=== PATIENT | male | born 1975 | race Caucasian/White ===

== ENCOUNTER 2023-05-12 13:21 | Emergency (ER) | payer BC, SELFPAY ==
[2023-05-12 13:25] VITALS: BP 165/109; PULSE 102; RESP 18; TEMP 36.9; O2SAT 94; BMI 32.6
--- NOTE | 2023-05-12 13:32 | CT_ITS ---
The [address] [address] Patient Name: JIM PETERSON MRN: [id number] date: 1975 Sex: M Assigned Patient Location: ER Current Patient Location: Accession/Order Number: [id number] Exam Date: 05/12/2023 13:47 Report Date: 05/12/2023 14:52 At the request of: JEFF MIDDLETON Procedure: CT abdomen pelvis wo con EXAM: CT abdomen pelvis wo con; [id number] REASON FOR EXAM: flank pain TECHNIQUE: Helical CT images of the abdomen and pelvis were obtained without IV contrast. Multiplanar reformats were generated at the scanner. Dose reduction technique used: Automated exposure control and/or adjustment of the mA and/or kV according to patient size and/or use of iterative reconstruction technique. COMPARISON: CT abdomen/pelvis 08/07/2022 and 03/12/2020. FINDINGS: Note: Compared with a contrast-enhanced CT exam, noncontrast images are relatively insensitive for detection of solid organ and vascular abnormalities. Visualized Chest: No pleural effusion or any significant pulmonary findings. Abdomen: Liver: Numerous cysts. Gallbladder: No calcified gallstones. No acute inflammatory changes. Bile Ducts: No significant biliary ductal dilatation. Pancreas: No ductal dilatation or inflammatory changes. Spleen: No splenomegaly. Adrenals: No nodules. Kidneys: -Polycystic kidneys. -Since 08/07/2022 there is been interval hemorrhage into a small cyst in the lateral aspect of the right kidney (series 3 image 48) as well as interval hemorrhage into to medium-sized left-sided cysts (series 3 image 87 and 35). There is also been increased attenuation of a medium-sized cyst in the lower pole of the left kidney suggesting interval acute on chronic hemorrhage. -Pre-existing hemorrhage within several additional renal cyst. -No hydronephrosis. -Scattered bilateral renal calcifications are present. Vascular: No aortic aneurysm. Lymph Nodes: No adenopathy. Abdominal Wall: Probable laparoscopy port of the right lower abdomen. Pelvis: No mass or adenopathy. Bowel/Peritoneal Cavity/Mesentery: -No bowel obstruction or significant ileus. -No acute inflammatory changes. -No free air or free fluid. Musculoskeletal: No acute fracture or suspicious osseous lesion. CT/CT abdomen pelvis wo con IMPRESSION: 1. Compared with 08/07/2022 there has been interval hemorrhage into one of the right-sided renal cysts and 3 of the left-sided renal cysts which can result and flank pain. 2. No hydronephrosis or other potentially acute intra-abdominal abnormality. Electronically authenticated by: PHILIP HUGHES Date: 05/12/2023 14:52
--- NOTE | 2023-05-12 13:39 | US_ITS ---
The [address] [address] Patient Name: JIM PETERSON MRN: [id number] date: 1975 Sex: M Assigned Patient Location: ER Current Patient Location: Accession/Order Number: [id number] Exam Date: 05/12/2023 14:35 Report Date: 05/12/2023 15:14 At the request of: JEFF MIDDLETON Procedure: US scrotum doppler EXAM: US scrotum doppler TECHNIQUE: Grayscale, color flow and Doppler ultrasound evaluation of the scrotum. HISTORY: possible torsion COMPARISON: None. FINDINGS: Right testicle measures 3.3 x 3.4 x 2.0 cm and is homogeneous with normal blood flow. Left testicle measures 3.4 x 2.6 x 1.9 cm and is homogeneous with normal blood flow. Multiple right epididymal head cysts measuring up to 17 mm. There are multiple left epididymal head cysts measuring up to 6 mm. No significant hydrocele or extratesticular mass lesion. US/US scrotum doppler IMPRESSION: No acute scrotal pathology. Electronically authenticated by: MARGARITA SONG Date: 05/12/2023 15:14
[2023-05-12 13:48] LABS: Bilirubin Urine NEGATIVE (NEGATIVE); Blood Urine MODERATE (NEGATIVE); Clarity Urine CLEAR (CLEAR); Color Urine LT. YELLOW (YELLOW); Glucose Urine UA NEGATIVE (NEGATIVE); Ketones Urine NEGATIVE (NEGATIVE); Leukocyte Esterase Urine NEGATIVE (NEGATIVE); Nitrite Urine NEGATIVE (NEGATIVE); Protein Urine 100 mg/dL (NEG/TRACE); Specific Gravity Urine 1.015 (1.005-1.025); Urobilinogen Urine 0.2 EU/dL (0.2-1.0); pH Urine 8.5 (5.0-9.0)
[2023-05-12 13:51] LABS: Urine Microscopic Indicated YES
[2023-05-12 13:55] LABS: Basophils Percent Auto 0.3 % (0.2-2.0); Eosinophils Percent Auto 0.5 % (0.9-7.0); Hematocrit 46.8 % (42.0-54.0); Hemoglobin 15.7 g/dL (14.0-18.0); Immature Granulocytes Abs Auto 0.02 10^3/uL (0.00-0.03); Immature Granulocytes Pct Auto 0.3 % (0.0-0.5); Lymphocytes Absolute Auto 0.5 10^3/uL (1.2-3.8); Lymphocytes Percent Auto 6.5 % (20.5-60.0); Mean Corpuscular HGB Conc 33.5 g/dL (29.9-35.2); Mean Corpuscular Hemoglobin 30.4 pg (25.9-34.0); Mean Corpuscular Volume 90.5 fL (80.0-94.0); Mean Platelet Volume 9.4 fL (9.5-13.5); Monocytes Absolute Auto 0.5 10^3/uL (0.3-0.8); Monocytes Percent Auto 5.8 % (1.7-12.0); Neutrophils Absolute Auto 6.9 10^3/uL (1.4-6.5); Neutrophils Percent Auto 86.6 % (43.0-75.0); Platelet Count 202 10^3/uL (150-450); Red Blood Count 5.17 10^6/uL (4.70-6.10)
[2023-05-12 13:56] LABS: Bacteria Urine TRACE #/HPF (NONE SEEN); Cast Seen? NONE SEEN #/LPF (NONE SEEN); Crystals Seen? None Seen #/HPF (None Seen); Mucus Urine NONE SEEN (NONE SEEN); Squamous Epithelial Cell Urine RARE #/LPF (NONE/RARE); Urine Culture Indicated NO; WBC Urine NONE SEEN #/HPF (NONE SEEN)
[2023-05-12 14:06] LABS: Alanine Aminotransferase 15 U/L (16-63); Albumin Globulin Ratio 0.7; Albumin Level 3.2 g/dL (3.4-5.0); Alkaline Phosphatase 76 U/L (46-116); Anion Gap 13.6; Aspartate Amino Transferase 12 U/L (15-37); BUN Creatinine Ratio 5.3; Bilirubin Total 0.8 mg/dL (0.2-1.0); Calcium 9.2 mg/dL (8.5-10.1); Carbon Dioxide 29.5 mmol/L (21.0-32.0); Chloride 99 mmol/L (98-107); Estimated GFR (African America 20 (>=60); Estimated GFR (Non-African Ame 16 (>=60); Globulin 4.3 g/dL; Glucose 110 mg/dL (74-106); Potassium 3.1 mmol/L (3.5-5.1); Sodium 139 mmol/L (136-145); Total Protein 7.5 g/dL (6.4-8.2)
[2023-05-12] MEDS: HYDROMORPHONE HCL 0.5 MG/0.5 ML SYRINGE IV (14:28)
[2023-05-12 14:33] VITALS: PULSE 69; O2SAT 97
--- NOTE | 2023-05-12 15:40 | ED.ABDPAIN1 ---
HPI - Abdominal Pain General Chief Complaint: Abdominal Pain Stated Complaint: flank pain UTI Time Seen by Provider: 05/12/23 13:31 Mode of arrival: walk-in Limitations: no limitations History of Present Illness HPI narrative: The patient have history of polycystic kidney disease and on dialysis awaiting kidney transplant. Coming to us with a pain in his right back mostly the flank area radiating down to his groin and testicles on the right side. That started last night all of a sudden with no history of fall or trauma or carrying anything heavy. There was no nausea no vomiting and no burning with urination and no fever and the patient gave the pain 6 out of 10 Related Data Previous Rx's Medication Instructions Recorded oxycodone-acetaminophen 5 mg-325 1 tab PO Q8H PRN pain #9 tabs 05/12/23 mg tablet (Percocet) Allergies Allergy/AdvReac Type Severity Reaction Status Date / Time amoxicillin Allergy Mild Verified 05/12/23 13:25 Review of Systems ROS Status of ROS 10 or more systems reviewed and unremarkable except as noted in history and below Exam Narrative Exam Narrative: Nurses notes and vital signs reviewed and patient is not hypoxic. General: Well-appearing and in no apparent distress. Skin: Warm, dry, no pallor noted. No rash. Head: Normocephalic, atraumatic. Neck: Supple, non-tender. Eye: Pupils are equal, round and EOMI. No scleral icterus. Ears, Nose, Mouth, and Throat: TM are clear, no nasal mucosal hypertrophy. Oral mucosa is moist, no posterior oropharynx erythema, uvula is mid-line Cardiovascular: Regular Rate and Rhythm without murmur, gallop or rub. Respiratory: No accessory muscle use or respiratory distress. Lungs are clear to auscultation, no wheezing, rales or rhonchi Chest Wall: no tenderness Back: No midline thoracic or lumbar vertebral tenderness. No CVA tenderness Musculoskeletal: normal ROM, no calf or popliteal tenderness, no lower extremity edema/swelling GI: Abdomen is soft, non-distended. Normal bowel sounds. No masses appreciated. No tenderness to palpation. No rebound, guarding, or rigidity noted. Neurological: A&O x4. No cranial nerve dysfunction observed. No truncal ataxia. Moves all extremities. Sensation intact. Psychiatric: Cooperative and interactive. Normal mood and affect. On examination of the back I could not induce tenderness on palpation or any CVA tenderness and on examination of the patient's scrotum there was no redness hotness or any rash and the patient had no significant swelling of the testicles no elevation of the right testicle compared to the left and he did complain of very subjective pain on examination on the right side. Constitutional Vital Signs, click to edit/add: Last Vital Signs Temp 98.5 F 05/12/23 13:25 Pulse 69 05/12/23 14:33 Resp 18 05/12/23 13:25 BP 150/98 H 05/12/23 16:02 Pulse Ox 97 05/12/23 14:33 Course Vital Signs Vital signs: Vital Signs Temperature 98.5 F 05/12/23 13:25 Pulse Rate 102 H 05/12/23 13:25 Respiratory Rate 18 05/12/23 13:25 Blood Pressure 165/109 H 05/12/23 13:25 Pulse Oximetry 94 L 05/12/23 13:25 Temperature 98.5 F 05/12/23 13:25 Pulse Rate 69 05/12/23 14:33 Respiratory Rate 18 05/12/23 13:25 Blood Pressure 150/98 H 05/12/23 16:02 Pulse Oximetry 97 05/12/23 14:33 MDM - Abdominal Pain MDM Narrative Medical decision making narrative: Patient CBC and chemistry showed no acute significant pathology except for this chronic kidney disease Patient was feeling better after being treated with Dilaudid The patient had ultrasound showing no pathology detected in the testicle within normal blood supply CAT scan shows hemorrhagic multiple cyst in the right side as well as the left and that can explain the patient pain/ Patient provided with a Percocet prescription he was instructed to follow-up with his doctor within few days and in case of any worsening or no improvement within 24 to 48 hours he is to come back to the ER The patient is to follow up with primary care physician in next 2-3 days or to return to the emergency department should any of the signs or symptoms worsen or new symptoms develop. The patient agrees with the following Diagnosis and Treatment plan and the patient will be discharged home. Lab Data Labs: Lab Results 05/12/23 05/12/23 Range/Units 13:40 13:45 WBC 8.0 (4.0-11.0) 10^3/uL RBC 5.17 (4.70-6.10) 10^6/uL Hgb 15.7 (14.0-18.0) g/dL Hct 46.8 (42.0-54.0) % MCV 90.5 (80.0-94.0) fL MCH 30.4 (25.9-34.0) pg MCHC 33.5 (29.9-35.2) g/dL RDW 14.0 (11.0-15.0) % Plt Count 202 (150-450) 10^3/uL MPV 9.4 L (9.5-13.5) fL Neut % (Auto) 86.6 H (43.0-75.0) % Lymph % (Auto) 6.5 L (20.5-60.0) % [place] % (Auto) 5.8 (1.7-12.0) % Eos % (Auto) 0.5 L (0.9-7.0) % Baso % (Auto) 0.3 (0.2-2.0) % Neut # (Auto) 6.9 H (1.4-6.5) 10^3/uL Lymph # (Auto) 0.5 L (1.2-3.8) 10^3/uL [place] # (Auto) 0.5 (0.3-0.8) 10^3/uL Eos # (Auto) 0.0 (0.0-0.7) 10^3/uL Baso # (Auto) 0.0 (0.0-0.1) 10^3/uL Abs Immat Gran (auto) 0.02 (0.00-0.03) 10^3/uL Imm/Tot Granulo (auto) 0.3 (0.0-0.5) % Sodium 139 (136-145) mmol/L Potassium 3.1 L (3.5-5.1) mmol/L Chloride 99 (98-107) mmol/L Carbon Dioxide 29.5 (21.0-32.0) mmol/L Anion Gap 13.6 BUN 21.0 H (7.0-18.0) mg/dL Creatinine 3.97 H (0.70-1.30) mg/dL Est GFR ( Amer) 20 L (>=60) Est GFR (Non-Af Amer) 16 L (>=60) BUN/Creatinine Ratio 5.3 Glucose 110 H (74-106) mg/dL Calcium 9.2 (8.5-10.1) mg/dL Total Bilirubin 0.8 (0.2-1.0) mg/dL AST 12 L (15-37) U/L ALT 15 L (16-63) U/L Alkaline Phosphatase 76 (46-116) U/L Total Protein 7.5 (6.4-8.2) g/dL Albumin 3.2 L (3.4-5.0) g/dL Globulin 4.3 g/dL Albumin/Globulin Ratio 0.7 Urine Color Lt. yellow (YELLOW) Urine Clarity Clear (CLEAR) Urine pH 8.5 (5.0-9.0) Ur Specific [place] 1.015 (1.005-1.025) Urine Protein 100 A (NEG/TRACE) mg/dL Urine Glucose (UA) Negative (NEGATIVE) mg/dL Urine Ketones Negative (NEGATIVE) mg/dL Urine Occult Blood Moderate A (NEGATIVE) Urine Nitrite Negative (NEGATIVE) Urine Bilirubin Negative (NEGATIVE) Urine Urobilinogen 0.2 (0.2-1.0) EU/dL Ur Leukocyte Esterase Negative (NEGATIVE) Urine RBC 5-10 A (0-2) #/HPF Urine WBC None seen (NONE SEEN) #/HPF Ur Squamous Epith Cells Rare (NONE/RARE) #/LPF Urine Crystals None seen (None Seen) #/HPF Urine Bacteria Trace A (NONE SEEN) #/HPF Urine Casts None seen (NONE SEEN) #/LPF Urine Mucus None seen (NONE SEEN) Ur Culture Indicated? No Discharge Plan Discharge Chief Complaint: Abdominal Pain Clinical Impression: Flank pain, Hemorrhage of cyst of [place] kidney Patient Disposition: Home, Self-Care Time of Disposition Decision: 15:39 Condition: Good Mode of Transportation: Private Vehicle Prescriptions / Home Meds: New oxycodone-acetaminophen [Percocet] 5-325 mg tablet 1 tab PO Q8H PRN (Reason: pain ) Qty: 9 0RF Instructions: Kidney Cyst (ED) Stand Alone Forms: Portal Instructions Referrals: JANN JAUREGUI [Primary Care Provider] - 1 week Discharge Date/Time: 05/12/23 16:03
[2023-05-12 16:02] VITALS: BP 150/98
== END 2023-05-12 16:03 | disposition home or self-care (01) ==
PROVIDERS: Emergency Provider Emergency Medicine; PCP Internal Medicine
DX: R10.9 Unspecified abdominal pain (principal); Q61.3 Polycystic kidney, unspecified; Z99.2 Dependence on renal dialysis; Z76.82 Awaiting organ transplant status
CPT/HCPCS: 36415; 74176; 76870; 80053; 81001; 85025; 93976; 96374; 99285; J1170

== ENCOUNTER 2023-10-24 17:25 | Emergency (ER) | payer BC, SELFPAY ==
[2023-10-24 17:30] VITALS: BP 160/107; PULSE 102; TEMP 36.7; O2SAT 95; BMI 31.9
--- NOTE | 2023-10-24 17:36 | XR_ITS ---
The [address] [address] Patient Name: JIM PETERSON MRN: [id number] date: 1975 Sex: M Assigned Patient Location: ED.MAIN Current Patient Location: ER Accession/Order Number: [id number] Exam Date: 10/24/2023 17:45 Report Date: 10/24/2023 18:12 At the request of: JARROD ARREAGA Procedure: XR chest 1V Exam: Radiographs: XR chest 1V Reason for exam: congestion Comparison: Plain films dated 05/08/2016 XR/XR chest 1V IMPRESSION: Unremarkable chest x-ray. Electronically authenticated by: MATIAS BOGGS Date: 10/24/2023 18:12
[2023-10-24 17:37] VITALS: BP 152/102
--- NOTE | 2023-10-24 17:38 | ED_ITS ---
HPI HPI - General Adult General Chief complaint: Upper Respiratory Infection Stated complaint: Sore Throat, Congestion Time Seen by Provider: 10/24/23 17:30 Source: patient Mode of arrival: walk-in History of Present Illness HPI narrative: 48-year-old presents for hoarse voice for a week and congestion and discharge for a day or 2. He is a dialysis patient and had his normal dialysis yesterday. No fever or productive cough. No back pain or vomiting or shortness of breath. He wanted to be sure there is nothing serious because he is a dialysis patient. Related Data Home Medications ?Medication ?Instructions ?Recorded ?Confirmed allopurinol 100 mg tablet 100 mg PO .3Times a week 10/24/23 10/24/23 fluticasone propionate 50 1 spray intranasal DAILY 10/24/23 10/24/23 mcg/actuation nasal spray,suspension sertraline 100 mg tablet 100 mg PO DAILY 10/24/23 10/24/23 Previous Rx's ?Medication ?Instructions ?Recorded oxycodone-acetaminophen 5 mg-325 1 tab PO Q8H PRN pain #9 tabs 05/12/23 mg tablet (Percocet) Allergies Allergy/AdvReac Type Severity Reaction Status Date / Time amoxicillin Allergy Mild Verified 05/12/23 13:25 Opioid HPI Opioid Management Most Recent Opioid Data: Last Pain Scale 8 05/12/23 14:28 Review of Systems ROS Narrative A ten point review of systems is negative except as noted above. Exam Narrative Exam Narrative: Nurses note and vital signs reviewed and patient is not hypoxic. General: The patient appears well and in no apparent distress. Patient is resting comfortably on cart. Skin: Warm, dry, no pallor noted. There is no rash noted. Head: Normocephalic, atraumatic Eye: Normal conjunctiva, no drainage Ears, Nose, Mouth, and Throat: oral mucosa is moist. Nares patent. Posterior pharynx shows no erythema or exudate. No swelling. Cardiovascular: Regular Rate and Rhythm Respiratory: Patient is in no distress, no accessory muscle use, lungs are clear to auscultation, no wheezing, rales or rhonchi Back: non-tender GI: Soft and nontender Musculoskeletal: The patient has no evidence of calf tenderness, no pitting edema, symmetrical pulses noted bilaterally Neurological: A&O, normal speech Psychiatric: Cooperative Constitutional Vital Signs, click to edit/add: Last Vital Signs Temp 98.1 F 10/24/23 17:30 Pulse 102 H 10/24/23 17:30 Resp 16 10/24/23 17:30 BP 152/102 H 10/24/23 17:37 Pulse Ox 95 10/24/23 17:30 O2 Del Method Room Air 10/24/23 17:30 Course Vital Signs Vital signs: Vital Signs Temperature 98.1 F 10/24/23 17:30 Pulse Rate 102 H 10/24/23 17:30 Respiratory Rate 16 10/24/23 17:30 Blood Pressure 160/107 H 10/24/23 17:30 Pulse Oximetry 95 10/24/23 17:30 Oxygen Delivery Method Room Air 10/24/23 17:30 Temperature 98.1 F 10/24/23 17:30 Pulse Rate 102 H 10/24/23 17:30 Respiratory Rate 16 10/24/23 17:30 Blood Pressure 152/102 H 10/24/23 17:37 Pulse Oximetry 95 10/24/23 17:30 Oxygen Delivery Method Room Air 10/24/23 17:30 Medical Decision Making MDM Narrative Medical decision making narrative: Strep test and chest x-ray are negative. My clinical impression is that he has a viral upper respiratory infection. Antibiotic not indicated. Treatment diagnosis and follow-up were discussed with the patient. Differential Diagnosis Differential Diagnosis: Strep throat, viral laryngitis, pneumonia, viral URI Lab Data Lab results reviewed: Yes I reviewed the patient's lab results Labs: Lab Results 10/24/23 Range/Units 17:35 Streptococcus Screen Negative Imaging Data Chest x-ray: Radiologist's impression: ITS Impressions Chest X-Ray 10/24/23 17:36 IMPRESSION: Unremarkable chest x-ray. Electronically authenticated by: MATIAS BOGGS Date: 10/24/2023 18:12 Discharge Plan Discharge Stand Alone Forms: Portal Instructions Chief Complaint: Upper Respiratory Infection Clinical Impression: Viral upper respiratory infection, Laryngitis Patient Disposition: Home, Self-Care Time of Disposition Decision: 18:26 Condition: Good Mode of Transportation: Private Vehicle Prescriptions / Home Meds: No Action oxycodone-acetaminophen [Percocet] 5-325 mg tablet 1 tab PO Q8H PRN (Reason: pain ) Qty: 9 0RF allopurinol 100 mg tablet 100 mg PO .3Times a week fluticasone propionate 50 mcg/actuation spray,suspension 1 spray INTRANASAL DAILY sertraline 100 mg tablet 100 mg PO DAILY Print Language: Croatian Instructions: Laryngitis (ED), Upper Respiratory Infection (ED) Referrals: JANN JAUREGUI [Primary Care Provider] - 1 week
[2023-10-24 17:56] LABS: Internal Control Within Normal Limits; Strep A Antigen Screen Negative
== END 2023-10-24 18:30 | disposition home or self-care (01) ==
PROVIDERS: Emergency Provider Emergency Medicine; PCP Internal Medicine
DX: J06.9 Acute upper respiratory infection, unspecified (principal); J04.0 Acute laryngitis; Z99.2 Dependence on renal dialysis
CPT/HCPCS: 71045; 87070; 87880; 99284

== ENCOUNTER 2024-06-18 15:25 | Outpatient (OUT) | payer BC, SELFPAY ==
[2024-06-18 15:50] LABS: Hematocrit 40.1 % (42.0-54.0); Hemoglobin 13.2 g/dL (14.0-18.0); Mean Corpuscular HGB Conc 32.9 g/dL (29.9-35.2); Mean Corpuscular Hemoglobin 30.1 pg (25.9-34.0); Mean Corpuscular Volume 91.6 fL (80.0-94.0); Mean Platelet Volume 9.4 fL (9.5-13.5); Platelet Count 287 10^3/uL (150-450); Red Blood Count 4.38 10^6/uL (4.70-6.10); Red Cell Distribution Width 18.3 % (11.0-15.0); White Blood Count 7.6 10^3/uL (4.0-11.0)
[2024-06-18 16:14] LABS: Alanine Aminotransferase 16 U/L (16-63); Albumin Level 3.8 g/dL (3.4-5.0); Alkaline Phosphatase 248 U/L (46-116); Aspartate Amino Transferase 13 U/L (15-37); Bilirubin Total 0.3 mg/dL (0.2-1.0); Estimated GFR (African America 37 (>=60 mL/min/1.73m^2); Estimated GFR (Non-African Ame 30 (>=60 mL/min/1.73m^2); Uric Acid 3.9 mg/dL (3.5-7.2)
[2024-06-18 16:39] LABS: Band Neutrophils Absolute 0.2 10^3/uL (0.0-0.3); Monocytes Absolute Manual 0.45 10^3/uL (0.30-0.80); Segmented Neut Absolute Manual 6.99 10^3/uL (1.4-6.5)
== END 2024-06-18 15:26 | disposition home or self-care (01) ==
LOC: LAB 15:27
PROVIDERS: PCP Internal Medicine; Visit Provider Internal Medicine Rheumatology
DX: M10.09 Idiopathic gout, multiple sites (principal)
CPT/HCPCS: 36415; 82042; 82247; 82565; 84075; 84450; 84460; 84550; 85007; 85027

== ENCOUNTER 2024-08-13 12:58 | Outpatient (OUT) | payer BC, SELFPAY ==
[2024-08-13 15:54] LABS: C. Difficile PCR NEGATIVE
== END 2024-08-13 12:59 | disposition home or self-care (01) ==
LOC: LAB 13:00
PROVIDERS: PCP Internal Medicine; Visit Provider Internal Medicine Nephrology
DX: R19.7 Diarrhea, unspecified (principal)
CPT/HCPCS: 87493

== ENCOUNTER 2025-02-04 17:45 | Emergency (ER) | payer BC, MEDICARE, SELFPAY ==
--- OUTSIDE RECORDS SUMMARY | 2025-01-23 07:55 | XMS_ITS | Encounter Summary ---
Author Organization 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 Name Role Phone Joe Harris MD Primary Care Provider [phone] Milind Jaime MD Unavailable Trever Morales MD Unavailable Encounter Details DateTypeDepartmentCare Team (Latest Contact Info)Ncrqhoesfmz52/24/2025 8:55 AM EDTLab [facility] Outpatient Draw Station [address] [place] [address] Encounter for long-term (current) use of medications; Kidney transplanted; Cytomegalovirus (CMV) viremia (CMS/HCC); Immunosuppression Social History Tobacco UseTypesPacks/DayYears UsedDateSmoking Tobacco: NeverSmokeless Tobacco: FormerSnuffQuit: 01/29/2023lcohol UseStandard Drinks/WeekCommentsNot Currently0 (1 standard drink = 0.6 oz pure alcohol)[facility] UtilitiesAnswerDate RecordedIn the past 12 months has the [employer], gas, oil, or water [employer] threatened to shut off services in your home?No10/06/2024Humiliation, Afraid, Rape, and Kick questionnaireAnswerDate RecordedWithin the last year, have you been afraid of your partner or ex-partner?No10/06/2024Within the last year, have you been humiliated or emotionally abused in other ways by your partner or ex-partner?No 10/06/2024Within the last year, have you been kicked, hit, slapped, or otherwise physically hurt by your partner or ex-partner?No10/06/2024Within the last year, have you been raped or forced to have any kind of sexual activity by your part ner or ex-partner?No10/06/2024Overall Financial Resource Strain (CARDIA)Answer Date RecordedHow hard is it for you to pay for the very basics like food, housing, medical care, and heating?Not hard at all10/06/2024PHQ-2AnswerDate RecordedPatient Health Questionnaire-2 [id number] Safety & Environment AnswerDate RecordedWithin the last year, have you been afraid of your partner or ex-partner?No04/03/2023Emotionally AbusedNot on file04/03/2023hysically Abused Not on file04/03/2023Sexually AbusedNot on file04/03/2023In the past year have you been physically or sexually abused?Unrecognized value04/03/2023 TransportationAnswerDate RecordedIn the past 12 months, has lack of transportation kept you from medical appointments or from getting medications?No 10/06/2024In the past 12 months, has lack of transportation kept you from meetings, work, or from getting things needed for daily living?No10/06/2024 Housing Stability Vital SignAnswerDate RecordedIn the last 12 months, was there a time when you were not able to pay the mortgage or rent on time?No10/06/2024In the past 12 months, how many times have you moved where you were living?1 10/06/2024t any time in the past 12 months, were you homeless or living in a snf (including now)?No10/06/2024Hunger Vital SignAnswerDate RecordedWithin the past 12 months, you worried that your food would run out before you got the money to buymore.Never true10/06/2024Within the past 12 months, the food you bought just didn't last and you didn't have money to get more.Never true 10/06/2024Sex and Gender InformationValueDate RecordedSex Assigned at [facility] 02/26/2023 9:51 AM ESTLegal KbpDfih92/03/2022 3:32 PM EDTGender IdentityMale 02/26/2023 9:51 AM ESTSexual OrientationHeterosexual or Wyonddxp52/27/2023 9:51 AM ESTdocumented as of this encounter Functional Status * Are you deaf or do you have serious difficulty hearing?AnswerDate of CmuawckcbwNvtdnuXz96/25/2023 1:42 PM Elicia Pacheco RN * Are you blind or do you have serious difficulty seeing, even when wearing glasses?AnswerDate of PbijugokdpAapkoqAj83/25/2023 1:42 PM Elicia Pacheco RN * Do you have serious difficulty walking or climbing stairs?AnswerDate of QvpteqeswgWrqhwrZp13/25/2023 1:42 PM Elicia Pacheco RN * Do you have serious difficulty dressing or bathing?AnswerDate of Assessment WohoadAf07/25/2023 1:42 PM Elicia Pacheco RN * Because of a physical, mental, or emotional condition, do you have serious difficulty doing errandsalone such as visiting the doctor?AnswerDate of XlbwdlnempAakxwdIx42/25/2023 1:42 PM Elicia Pacheco RN documented as of this encounter Mental Status * Because of a physical, mental, or emotional condition, do you have serious difficulty concentrating, remembering, or making decisions? (5 years old or older)AnswerEntry MesaOejamkDa46/25/2023 1:42 PM Elicia Pacheco RN documented in this encounter Plan of Treatment DateTypeDepartmentCare Team (Latest Contact Info)Rhdanyladhi53/12/2025 8:00 AM ESTAppointment [facility] 2A Infusion [address] [place] [address] 02/16/2025 8:00 AM ESTFollow-Up [facility] Transplant [address] [place] [address] 03/16/2025 9:00 AM ESTFollow-Up [facility] Transplant [address] [place] [phone] Gualberto Serrano MD [address] [place] [address] documented as of this encounter Procedures Procedure NamePriorityDate/TimeAssociated DiagnosisCommentsDONOR SPECIFIC RWALMTRHUdecmjo75/24/2025 8:49 AM EDT Kidney transplanted SINGLE ANTIGEN CLASS BOFrwqvro76/24/2025 8:49 AM EDT Kidney transplanted SINGLE ANTIGEN CLASS ZEfeydjw00/24/2025 8:49 AM EDT Kidney transplanted CBC WITH AUTO CTTTOKAHNEGAKnzgenw15/24/2025 8:49 AM EDT Encounter for long-term (current) use of medications TACROLIMUS RINCJSuwtwuc41/24/2025 8:49 AM EDT Immunosuppression CMV DNA, QUANTITATIVE, NAAT, XBWTTSGumggat93/24/2025 8:49 AM EDT Kidney transplanted Cytomegalovirus (CMV) viremia (CMS/HCC) CBC AND VNWQURPGYHIGPdzqojk73/24/2025 8:49 AM EDT Encounter for long-term (current) use of medications URIC AIDJCyoukbt79/24/2025 8:49 AM EDT Encounter for long-term (current) use of medications OZQYZPQVPQKoxexxm35/24/2025 8:49 AM EDT Encounter for long-term (current) use of medications TBOEANJOKGiepeht19/24/2025 8:49 AM EDT Encounter for long-term (current) use of medications BILIRUBIN, WQHWZIVikbahf45/24/2025 8:49 AM EDT Encounter for long-term (current) use of medications COMPREHENSIVE METABOLIC QXJYWDlanjyx56/24/2025 8:49 AM EDT Encounter for long-term (current) use of medications documented in this encounter Results * Bilirubin, direct (01/23/2025 8:49 AM EDT)ComponentValueRef RangeTest Method Analysis TimePerformed AtPathologist SignatureBilirubin, Direct0.10 - 0.2 mg/dL01/23/2025 9:50 AM [facility] ([facility])Specimen (Source) Anatomical Location / LateralityCollection Method / VolumeCollection Time Received TimeBloodVenous blood specimen / UnknownVenipuncture / Unknown 01/23/2025 8:49 AM EDT1 9:28 AM EDT Narrative Authorizing ProviderResult TypeResult StatusValarie Klein [facility] BLOOD ORDERABLESFinal ResultPerforming OrganizationAddressCity/State/ZIP CodePhone Number [facility] ([facility]) [address] [place] [address] * Single antigen class II (01/23/2025 8:49 AM EDT)ComponentValueRef RangeTest MethodAnalysis TimePerformed AtPathologist SignatureTested [id number] 01/29/2025 12:24 PM [facility] TISSUE TYPING ([facility]ISTOTRAC)Test MethodClass II Single Eokolqx1401/29/2025 12:24 PM [facility]TM[facility] ([facility])Comment: Class II Antigen MicrobeadsSigned BySigned by Trever Figueroa CHT([facility]) MT(ASCP), Occupational Therapist Assistants Transplant Qfyxyhqdpx13/30/2025 12:24 PM EDTMIM[facility] T[facility]UE [facility]YP[facility] ([facility]AC)Class II SpecificitiesDR:15 DQ:6 DQA:011 12:24 PM EDTMIMBR[facility] T[facility] ([facility]AC)Specimen (Source)Anatomical Location / Laterality Collection Method / VolumeCollection TimeReceived TimeBloodVenous blood specimen / UnknownVenipuncture / Womvypn6701/23/2025 8:49 AM EDT1 9:21 AM EDT Narrative Authorizing ProviderResult TypeResult StatusGualberto Serrano [facility] BLOOD ORDERABLES Final ResultPerforming OrganizationAddressCity/State/ZIP CodePhone Number [facility] TISSUE TYPING ([facility]OTRAC) [address] [place] [address], * Single antigen class I (01/23/2025 8:49 AM EDT)ComponentValueRef RangeTest MethodAnalysis TimePerformed AtPathologist SignatureTested [id number] 01/29/2025 12:24 PM [facility] TISSUE TYPING ([facility]ISTOTRAC)Test MethodClass I Single Jfulvhq8001/29/2025 12:24 PM [facility] TISSUE TYPING (HISTOTRAC)Signed BySigned by Trever Figueroa CHT([facility]) MT(ASCP), Occupational Therapist Assistants Transplant Kwhrphtvua08/30/2025 12:24 PM [facility] T[facility] ([facility]OT[facility]AC)Comment:Class I Antigen Microbeads Class I SpecificitiesA: 12:24 PM EDTMIMBRES [facility]IAL [facility] TISSUE [facility]YPING ([facility]OT[facility]AC) Specimen (Source)Anatomical Location / LateralityCollection Method / Volume Collection TimeReceived TimeBloodVenous blood specimen / UnknownVenipuncture / Odiqhpz6401/23/2025 8:49 AM EDT1 9:21 AM EDT Narrative Authorizing ProviderResult TypeResult StatusKunal Maggie JASSOLAB BLOOD ORDERABLES Final ResultPerforming OrganizationAddressCity/State/ZIP CodePhone Number [facility] TISSUE TYPING ([facility]ISTOTRAC) [address] [place] [address], * (ABNORMAL) CBC auto differential (01/23/2025 8:49 AM EDT)ComponentValueRef RangeTest MethodAnalysis TimePerformed AtPathologist SignatureAuto WBC3.40(L) 4.00 - 10.60 10*3/uL01/23/2025 9:40 AM [facility] ([facility])RBC5.60 4.20 - 5.70 10*6/uL01/23/2025 9:40 AM [facility] ([facility])Hemoglobin 14.313.0 - 17.0 g/dL01/23/2025 9:40 AM [facility] ([facility])Hematocrit 47.539.0 - 50.0 %01/23/2025 9:40 AM [facility] ([facility])MCV84.882.0 - 98.0 fL01/23/2025 9:40 AM [facility] ([facility])MCH25.5(L)27.0 - 33.0 pg01/23/2025 9:40 AM [facility] ([facility])MCHC30.1(L)32.0 - 35.0 g/dL 01/23/2025 9:40 AM [facility] ([facility])RDW15.5(H)11.5 - 15.0 % 01/23/2025 9:40 AM [facility] ([facility])Neutrophils %75.8(H)40.0 - 72.0 %01/23/2025 9:40 AM [facility] ([facility])Lymphocytes %4.7(L)20.0 - 45.0 %01/23/2025 9:40 AM [facility] ([facility])Monocytes %14.7(H)5.0 - 12.0 %01/23/2025 9:40 AM [facility] ([facility])Eosinophils %2.40.0 - 6.0 %01/23/2025 9:40 AM [facility] ([facility])Basophils %1.2(H)0.0 - 1.0 %01/23/2025 9:40 AM [facility] ([facility])Neutrophils Absolute2.58 1.60 - 7.60 10*3/uL01/23/2025 9:40 AM [facility] ([facility])Lymphocytes Absolute0.16(L)1.20 - 4.00 10*3/uL01/23/2025 9:40 AM [facility] ([facility])Monocytes Absolute0.500.10 - 1.00 10*3/uL01/23/2025 9:40 AM [facility] ([facility])Eosinophils Absolute0.080.00 - 0.50 10*3/uL01/23/2025 9:40 AM [facility] ([facility])Basophils Absolute0.040.00 - 0.20 10*3/uL 01/23/2025 9:40 AM [facility] ([facility])Anbheammx064149 - 400 10*3/uL 01/23/2025 9:40 AM [facility] ([facility])nRBC %0.00 %01/23/2025 9:40 AM [facility] ([facility])Immature Granulocytes %1.2(H)0.0 - 1.0 % 01/23/2025 9:40 AM [facility] ([facility])Immature Granulocytes Absolute 0.040.00 - 0.20 10*3/uL01/23/2025 9:40 AM [facility] ([facility]) Specimen (Source)Anatomical Location / LateralityCollection Method / Volume Collection TimeReceived TimeBloodVenous blood specimen / UnknownVenipuncture / Ihrlypj9001/23/2025 8:49 AM EDT1 9:30 AM EDT Narrative Authorizing ProviderResult TypeResult StatusValarie Klein [facility] BLOOD ORDERABLESFinal ResultPerforming OrganizationAddressCity/State/ZIP CodePhone Number [facility]) [address] [place] [address] * (ABNORMAL) Tacrolimus level (01/23/2025 8:49 AM EDT)ComponentValueRef Range Test MethodAnalysis TimePerformed AtPathologist SignatureTacrolimus Lvl2.7(L) 5.0 - 20.0 ng/mL01/23/2025 1:51 PM [facility] ([facility])Comment:The [employer] Tacrolimus assay is a delayed one-step immunoassay for the quantitative determination of tacrolimus in human whole blood using the chemiluminescent microparticle immunoassay (CMIA) technology with flexible assay protocols, referred to as Chemiflex.Specimen (Source)Anatomical Location / LateralityCollection Method / VolumeCollection TimeReceived TimeBloodVenous blood specimen / UnknownVenipuncture / Myfhsqp5201/23/2025 8:49 AM EDT1 9:30 AM EDT Narrative Authorizing ProviderResult TypeResult StatusGualberto Serrano MDFLINT HILLS [facility] BLOOD ORDERABLES Final ResultPerforming OrganizationAddressCity/State/ZIP CodePhone Number [facility]) [address] [place] [address] * (ABNORMAL) CMV DNA, quantitative, NAAT, plasma (01/23/2025 8:49 AM EDT) ComponentValueRef RangeTest MethodAnalysis TimePerformed AtPathologist SignatureCMV Qnt by NAAT, Plasma IU/mLNot QuantifiedIU/mL01/26/2025 6:16 PM [facility] ([facility])CMV Qnt by NAAT, Plasma log IU/mLNot Quantifiedlog IU/mL01/26/2025 6:16 PM [facility]TAR[facility] ([facility])Comment: Not Quantified- CMV DNA was detected, but at a level below 1.54 log IU/mL (34.5 IU/mL). Virus detected at a level below 1.54 log IU/mL cannot be accurately quantified by this assay. CMV Qnt by NAAT, Plasma InterpDetected(A)Not Zyiaasay81/27/2025 6:16 PM EDTARUP [facility] ([facility])Comment: INTERPRETIVE INFORMATION: CMV by Quantitative NAAT, Plasma The quantitative range of this test is 1.54 - 7.00 log IU/mL (34.5 - 10,000,000 IU/mL). An interpretation of Not Detected does not rule out the presence of inhibitors or CMV DNA concentration below the level of detection of the assay. Care should be taken in the interpretation of any single viral load determination. International standardization has improved comparability of assay results across laboratories, but discrepancies still exist due to commutability issues with the standard. Performed By: [facility] [address] [place] [address] Electronics Assembler And Tester: Venkata Leal MD, PhD CLIA Number: [id number] Specimen (Source)Anatomical Location / LateralityCollection Method / Volume Collection TimeReceived TimeBloodVenous blood specimen / UnknownVenipuncture / Jobskom0601/23/2025 8:49 AM EDT1 9:30 AM EDT Narrative Authorizing ProviderResult TypeResult StatusKunal Maggie [facility] BLOOD ORDERABLES Final ResultPerforming OrganizationAddressCity/State/ZIP CodePhone Number [facility] ([facility]) [address] [place] [address] * Uric acid (01/23/2025 8:49 AM EDT)ComponentValueRef RangeTest MethodAnalysis TimePerformed AtPathologist SignatureUric Acid4.54.4 - 7.6 mg/dL01/23/2025 9:50 AM [facility] ([facility])Specimen (Source)Anatomical Location / LateralityCollection Method / VolumeCollection TimeReceived TimeBloodVenous blood specimen / UnknownVenipuncture / Fdogsxd2101/23/2025 8:49 AM EDT1 9:28 AM EDT Narrative Authorizing ProviderResult TypeResult StatusValarie Klein [facility] BLOOD ORDERABLESFinal ResultPerforming OrganizationAddressCity/State/ZIP CodePhone Number [facility] ([facility]) [address] [place] [address] * Phosphorus (01/23/2025 8:49 AM EDT)ComponentValueRef RangeTest MethodAnalysis TimePerformed AtPathologist SignaturePhosphorus2.52.5 - 5.0 mg/dL01/23/2025 9:50 AM [facility] ([facility])Specimen (Source)Anatomical Location / LateralityCollection Method / VolumeCollection TimeReceived TimeBloodVenous blood specimen / UnknownVenipuncture / Zzogyht7601/23/2025 8:49 AM EDT1 9:28 AM EDT Narrative Authorizing ProviderResult TypeResult StatusValarie Klein [facility] BLOOD ORDERABLESFinal ResultPerforming OrganizationAddressCity/State/ZIP CodePhone Number [facility] ([facility]) [address] [place] [address] * Magnesium (01/23/2025 8:49 AM EDT)ComponentValueRef RangeTest MethodAnalysis TimePerformed AtPathologist SignatureMagnesium2.01.9 - 2.7 mg/dL01/23/2025 9:50 AM [facility] ([facility])Specimen (Source)Anatomical Location / LateralityCollection Method / VolumeCollection TimeReceived TimeBloodVenous blood specimen / UnknownVenipuncture / Bivxeax9701/23/2025 8:49 AM EDT1 9:28 AM EDT Narrative Authorizing ProviderResult TypeResult StatusValarie Klein [facility] BLOOD ORDERABLESFinal ResultPerforming OrganizationAddressCity/State/ZIP CodePhone Number [facility] ([facility]) [address] [place] [address] * (ABNORMAL) Comprehensive metabolic panel (01/23/2025 8:49 AM EDT)Component ValueRef RangeTest MethodAnalysis TimePerformed AtPathologist SignatureSodium 091985 - 145 mmol/L1 9:50 AM [facility] ([facility])Potassium 3.93.5 - 5.1 mmol/L1 9:50 AM [facility] ([facility])Fmcrhpbq074 98 - 107 mmol/L1 9:50 AM [facility] ([facility])XU50835 - 31 mmol/L1 9:50 AM [facility] ([facility])Anion Ohj269 - 20 mmol/L 01/23/2025 9:50 AM [facility] ([facility])HDR140 - 25 mg/dL01/23/2025 9:50 AM [facility] ([facility])Creatinine1.37(H)0.70 - 1.30 mg/dL 01/23/2025 9:50 AM [facility] ([facility])BUN/Creatinine Ratio10.9 01/23/2025 9:50 AM [facility] ([facility])Ueptkbg3542 - 100 mg/dL 01/23/2025 9:50 AM [facility] ([facility])Calcium9.58.6 - 10.3 mg/dL 01/23/2025 9:50 AM [facility] ([facility])FSU1829 - 39 U/L1 9:50 AM [facility] ([facility])ALT (SGPT)177 - 52 U/L1 9:50 AM [facility] ([facility])Alkaline Zimjvxmpocg928(H)34 - 104 U/L1 9:50 AM [facility] ([facility])Total Protein6.56.0 - 8.3 g/dL01/23/2025 9:50 AM [facility] ([facility])Albumin4.43.5 - 5.7 g/dL01/23/2025 9:50 AM [facility] ([facility])Total Bilirubin0.50.3 - 1.0 mg/dL01/23/2025 9:50 AM [facility] ([facility])eGFR64.0>60.0 mL/min/1.73m* 9:50 AM [facility] ([facility])Comment:The [facility]???s estimated glomerular filtration rate (eGFR) will no longer include consideration of race in its calculation. The National Kidney Foundation???s eGFR Task Force developed new recommendations for the estimation of the glomerular filtration rate in the [place] They recommend immediate implementation of the new equation refit without the race variable in all laboratories because the calculation does not include race. In addition to not including race in the calculation and reporting, it included diversity in its development, and has acceptable performance characteristics and potential consequences that do not disproportionately affect any one group of ind ividuals.Specimen (Source)Anatomical Location / LateralityCollection Method / VolumeCollection TimeReceived TimeBloodVenous blood specimen / Unknown Venipuncture / Cedljit7301/23/2025 8:49 AM EDT1 9:28 AM EDT Narrative Authorizing ProviderResult TypeResult StatusJobrandon Klein [facility] BLOOD ORDERABLESFinal ResultPerforming OrganizationAddressCity/State/ZIP CodePhone Number [facility] ([facility]) [address] [place], [place] [id number] documented in this encounter Visit Diagnoses Diagnosis Encounter for long-term (current) use of medications Encounter for long-term (current) use of other medications Kidney transplanted Kidney replaced by transplant Cytomegalovirus (CMV) viremia ([facility]) Cytomegaloviral disease Immunosuppression documented in this encounter Care Teams Team MemberRelationshipSpecialtyStart DateEnd Date Joe Harris MD [address] PCP - General06/13/22 Milind Jaime MD [address] [place] [address] [address] [place] [phone] Consulting PhysicianTransplant Surgery06/13/22 Trever Morales MD [address] [place] [phone] Consulting PhysicianUrology06/03/24documented as of this encounter
[2025-02-04] VITALS (11 sets, daily range): BP systolic 140–151; BP diastolic 82–90; PULSE 71–76; TEMP 36.7; O2SAT 96–99; BMI 29.5
--- OUTSIDE RECORDS SUMMARY | 2025-02-04 18:03 | XMS_ITS | Encounter Summary ---
Author Organization [facility] Address [address] [place] [address] Care Team Providers Care Sugar House Supervisor Name Role Phone Joe Harris MD Primary Care Provider [phone] Milind Jaime MD Unavailable Trever Morales MD Unavailable Encounter Details DateTypeDepartmentCare Team (Latest Contact Info)Ckcicuporlq52/27/2025Orders Only [facility] Transplant [address] [place] [id number] Sheryl Gao, LIGIA Social History Tobacco UseTypesPacks/DayYears UsedDateSmoking Tobacco: NeverSmokeless Tobacco: FormerSnuffQuit: 01/29/2023lcohol UseStandard Drinks/WeekCommentsNot Currently0 (1 standard drink = 0.6 oz pure alcohol)[facility] UtilitiesAnswerDate RecordedIn the past 12 months has the [employer], gas, oil, or water [employer]kip[employer] threatened to shut off services in your [...] heating?Not hard at all10/06/2024PHQ-2AnswerDate RecordedPatient Health Questionnaire-2 [id number] Safety & Environment AnswerDate RecordedWithin the last [...] were you homeless or living in a fci (including now)?No10/06/2024Hunger Vital SignAnswerDate RecordedWithin the past 12 months, you worried that your food would run out before you got the money to buymore.Never true10/06/2024Within the past 12 months, the food you bought just didn't last and you didn't have money to get more.Never true 10/06/2024Sex and Gender InformationValueDate RecordedSex Assigned at BirthMale 02/26/2023 9:51 AM ESTLegal VpuZfsu53/03/2022 3:32 PM EDTGender IdentityMale 02/26/2023 9:51 AM ESTSexual OrientationHeterosexual or Cktqhulx07/27/2023 9:51 AM ESTdocumented as of this encounter Functional Status * Are you deaf or do you have serious difficulty hearing?AnswerDate of OmaiulvmxmGzhsptOr99/25/2023 1:42 PM Elicia Pacheco RN * Are you blind or do you have serious difficulty seeing, even when wearing glasses?AnswerDate of OmcdzrusycKbtkbaVm65/25/2023 1:42 PM Elicia Pacheco RN * Do you have serious difficulty walking or climbing stairs?AnswerDate of RnhwvjoxihTifckbNs61/25/2023 1:42 PM Elicia Pacheco RN * Do you have serious difficulty dressing or bathing?AnswerDate of Assessment UciruyHq11/25/2023 1:42 PM Elicia Pacheco RN * Because of a physical, mental, or emotional condition, do you have serious difficulty doing errandsalone such as visiting the doctor?AnswerDate of HaztdgzyxcElwbdvMn71/25/2023 1:42 PM Elicia Pacheco RN documented as of this encounter Mental Status * Because of a physical, mental, or emotional condition, do you have serious difficulty concentrating, remembering, or making decisions? (5 years old or older)AnswerEntry LhrnFqodkwQs24/25/2023 1:42 PM Elicia Pacheco RN documented in this encounter Plan of Treatment DateTypeDepartmentCare Team (Latest Contact Info)Dtszkmpvukd64/12/2025 8:00 AM ESTAppointment [facility] 2A Infusion [address] [place] [address] 02/16/2025 8:00 AM ESTFollow-Up [facility] Transplant [address] [place] [address] 03/16/2025 9:00 AM ESTFollow-Up [facility] Transplant [address] [place] [address] Gualberto Serrano MD [address] [place] [phone] documented as of this encounter Visit Diagnoses Not on filedocumented in this encounter Care Teams Team MemberRelationshipSpecialtyStart DateEnd Date Joe Harris MD [address] PCP - General06/13/22 Milind Jaime MD [facility] [facility] [address] [facility] [place] [address] Consulting PhysicianTransplant Surgery06/13/22 Trever Morales MD [address] [place] [address] Consulting PhysicianUrology06/03/24documented as of this encounter
--- OUTSIDE RECORDS SUMMARY | 2025-02-04 18:03 | XMS_ITS | Encounter Summary ---
Author Organization [facility] Address [address] [place] [address] Care Team Providers Care Assistant Professor Of Forestry Name Role Phone Joe Harris MD Primary Care Provider [phone] Milind Jaime MD Unavailable Trever Morales MD Unavailable Encounter Details DateTypeDepartmentCare Team (Latest Contact Info)Zmzpfjwipma11/25/2025Community Orders [facility] Transplant [address] [place] [phone] Milagro Last, LIGIA Kidney replaced by transplant Social History Tobacco UseTypesPacks/DayYears UsedDateSmoking Tobacco: NeverSmokeless Tobacco: FormerSnuffQuit: 3Alcohol UseStandard Drinks/WeekCommentsNot Currently0 (1 standard drink = 0.6 oz pure alcohol)[facility] UtilitiesAnswerDate RecordedIn the past 12 months has the [employer], oil, or water [employer] threatened to shut off services in your [...] heating?Not hard at all10/06/2024PHQ-2AnswerDate RecordedPatient Health Questionnaire-2 [id number] Safety & Environment AnswerDate RecordedWithin the last [...] were you homeless or living in a alf (including now)?No10/06/2024Hunger Vital SignAnswerDate RecordedWithin the past 12 months, you worried that your food would run out before you got the money to buymore.Never true10/06/2024Within the past 12 months, the food you bought just didn't last and you didn't have money to get more.Never true 10/06/2024Sex and Gender InformationValueDate RecordedSex Assigned at BirthMale 02/26/2023 9:51 AM ESTLegal RtsFrae60/03/2022 3:32 PM EDTGender IdentityMale 02/26/2023 9:51 AM ESTSexual OrientationHeterosexual or Imgmnolp54/27/2023 9:51 AM ESTdocumented as of this encounter Functional Status * Are you deaf or do you have serious difficulty hearing?AnswerDate of LccklbtbztDbqhimVf59/25/2023 1:42 PM Elicia Pacheco RN * Are you blind or do you have serious difficulty seeing, even when wearing glasses?AnswerDate of QbxkawqtlbGsqakfZu75/25/2023 1:42 PM Elicia Pacheco RN * Do you have serious difficulty walking or climbing stairs?AnswerDate of GvfgbserkdBqgioiIf89/25/2023 1:42 PM Elicia Pacheco RN * Do you have serious difficulty dressing or bathing?AnswerDate of Assessment DrfnchKt48/25/2023 1:42 PM Elicia Pacheco RN * Because of a physical, mental, or emotional condition, do you have serious difficulty doing errandsalone such as visiting the doctor?AnswerDate of RagrqhqihpLqfawjMm25/25/2023 1:42 PM Elicia Pacheco RN documented as of this encounter Mental Status * Because of a physical, mental, or emotional condition, do you have serious difficulty concentrating, remembering, or making decisions? (5 years old or older)AnswerEntry GztfVmyxbdWu21/25/2023 1:42 PM Elicia Pacheco RN documented in this encounter Plan of Treatment DateTypeDepartmentCare Team (Latest Contact Info)Gstuoiwfqhp98/12/2025 8:00 AM ESTAppointment [facility] 2A Infusion [address] [place] [address] 02/16/2025 8:00 AM ESTFollow-Up [facility] Transplant [address] [place] [address] 03/16/2025 9:00 AM ESTFollow-Up [facility] Transplant [address] [place] [address] Gualberto Serrano MD [address] [place] [address] documented as of this encounter Visit Diagnoses Diagnosis Kidney replaced by transplant documented in this encounter Care Teams Team MemberRelationshipSpecialtyStart DateEnd Date Joe Harris MD [address] PCP - General06/13/22 Milind Jaime MD [facility] [facility] [address] [place] [address] Consulting PhysicianTransplant Surgery06/13/22 Trever Morales MD [address] [place] [address] Consulting PhysicianUrology06/03/24documented as of this encounter
--- OUTSIDE RECORDS SUMMARY | 2025-02-04 18:04 | XMS_ITS | Clinical Summary ---
Author Organization [facility] Address [address] [place] [address] Phone Care Team Providers Care Underwriting Operations Manager Name Role Phone Steven, Joe Hdez DO Primary Care Provider [phone] Allergies Active AllergyReactionsCriticalityNoted DateCommentsAmoxicillinNausea And Vomiting,Nausea Only,Nausea/vomiting,Eipvqla0508/26/2018 Other reaction(s): Nausea EscitalopramNausea Only,Tozkasg4703/28/2021 Other reaction(s): Unknown Other reaction(s): Unknown Other reaction(s): Unknown Other reaction(s): Unknown Medications MedicationSigDispense QuantityRefillsLast FilledStart DateEnd DateStatus allopurinol (Zyloprim) 100 mg tablet Take by mouth.08/30/2022ctive amLODIPine (Norvasc) 10 mg tablet Take 1 tablet (10 mg) by mouth once daily.03/14/2022ctive azithromycin (Zithromax) 250 mg tablet take 2 tablets by mouth today then take 1 tablet daily for 4 days09/06/2023 Active calcitriol (Rocaltrol) 0.5 mcg capsule Take by mouth once daily.04/26/2022ctive cinacalcet (Sensipar) 30 mg tablet take 1 tablet by mouth 3 TIMES WEEKLY after DIALYSIS Sunday AND SUNDAYActive ciprofloxacin (Cipro) 500 mg tablet Take by mouth.06/16/2022ctive furosemide (Lasix) 40 mg tablet Take by mouth twice a day.06/02/2022ctive metoprolol succinate XL (Toprol-XL) 50 mg 24 hr tablet Take 1 tablet (50 mg) by mouth once daily.Active ondansetron ODT (Zofran-ODT) 4 mg disintegrating tablet Four times daily09/15/2022ctive pantoprazole (ProtoNix) 40 mg EC tablet Take by mouth.03/13/2022ctive sertraline (Zoloft) 100 mg tablet Take by mouth once daily.03/22/2023ctive sevelamer carbonate (Renvela) 800 mg tablet Take by mouth.08/07/2022ctive valsartan-hydrochlorothiazide (Diovan-HCT) 320-25 mg tablet Take 1 tablet by mouth once daily.11/29/2022ctive Active Problems No known active problems Social History Tobacco UseTypesPacks/DayYears UsedDateSmoking Tobacco: NeverSmokeless Tobacco: CurrentChew Tobacco Cessation:Ready to Q uit: Not Asked; Counseling Given: Not Answered Alcohol UseStandard Drinks/WeekCommentsNever0 (1 standard drink = 0.6 oz pure alcohol)PHQ-2AnswerDate RecordedPatient Health Questionnaire-2 [id number] Sex and Gender InformationValueDate RecordedSex Assigned at BirthNot on file Legal TptRimn36/26/2022 2:32 PM ESTGender IdentityNot on fileSexual Orientation Not on file Last Filed Vital Signs Vital SignReadingTime TakenCommentsBlood Pressure--Pulse--Whbuerjgwxf55.8 ??C (98.2 ??F)03/04/2024 1:50 PM ESTRespiratory Rate--Oxygen Saturation--Inhaled Oxygen Concentration--Qxuqtj483 kg (222 lb 1.6 oz)03/04/2024 1:50 PM ESTHeight 175.3 cm (5' 9 )03/04/2024 1:50 PM ESTBody Mass Index32.8105/05/2023 1:50 PM EST Plan of Treatment Health MaintenanceDue DateLast DoneCommentsCT Puiiisjbayrm42/23/1978FIT-DNA (Cologuard)1977FIT1977HIV Aizpertew20/23/1978Lipid Panel1977 Tiryxzkkvkrak44/23/1978Yearly Adult Znhvaprt39/23/1978MMR Vaccines (1 of 1 - Standard series)1978Diabetes Rrifvahks58/23/1996Hepatitis C Screening 07/24/1995Hepatitis B Vaccines (1 of 3 - 19+ 3-dose series)1996 DTaP/Tdap/Td Vaccines (1 - Tdap)07/24/1999Influenza Vaccine (#1)2024 03/30/2022, 03/28/2021, 02/13/2020, Additional history existsCOVID-19 Vaccine (1 - 2024- season)2024Zoster Vaccines (1 of 2)07/24/2027Colonoscopy 31, 08/15/2022olorectal Cancer Macdrtskw83/18/2033 Pneumococcal Vaccine: Pediatrics and At-Risk Adult PatientsAged Out10/12/2022No longer eligible based on patient's age to complete this topicHIB VaccinesAged OutNo longer eligible based on patient's age to complete this topicHPV Vaccines Aged OutNo longer eligible based on patient's age to complete this topic Hepatitis A VaccinesAged OutNo longer eligible based on patient's age to complete this topicIPV VaccinesAged OutNo longer eligible based on patient's age to complete this topicMeningococcal VaccineAged OutNo longer eligible based on patient's age to complete this topicRotavirus VaccinesAged OutNo longer eligible based on patient's age to complete this topic Insurance on file on file Care Teams Team MemberRelationshipSpecialtyStart DateEnd Date Joe Harris DO [address] [address] [facility]05/14/19
--- OUTSIDE RECORDS SUMMARY | 2025-02-04 18:04 | XMS_ITS | Clinical Summary ---
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 Role Phone Joe Harris MD Primary Care Provider [phone] Milind Jaime MD Unavailable Trever Morales MD Unavailable Allergies Active AllergyReactionsCriticalityNoted DateCommentsAmoxicillinNausea And Vomiting,Nausea Only,Umlrrxc3903/28/2021 Other reaction(s): Nausea EscitalopramNausea Only03/28/2021 Other reaction(s): Unknown Other reaction(s): Unknown Escitalopram OxalateNausea Only,Dlbvmhx4003/28/2021 Other reaction(s): Unknown Other reaction(s): Unknown Medications MedicationSigDispense QuantityRefillsLast FilledStart DateEnd DateStatus sertraline (Zoloft) 50 mg tablet Take 50 mg by mouth in the morning.2Active tacrolimus ER (Envarsus XR) 4 mg tablet ER Indications:History of kidney transplantTake 1 tablet (4 mg) by mouth in the morning. Script total 8.5 mg daily or as directed 30 tablet 5Active tacrolimus ER (Envarsus XR) 1 mg tablet ER Indications:History of kidney transplantTake 3 tablets (3 mg) by mouth in the morning. Script total 8.5 mg daily or as directed 90 tablet 5Active tacrolimus ER (Envarsus XR) 0.75 mg tablet ER Indications:History of kidney transplantTake 2 tablets (1.5 mg) by mouth in the morning. Script total 8.5 mg daily or as directed 60 tablet 5Active hydrALAZINE (Apresoline) 50 mg tablet Indications:Primary hypertensionTake 1 tablet (50 mg) by mouth two times daily. 60 tablet /6Active amLODIPine (Norvasc) 10 mg tablet Indications:History of kidney transplantTake 1 tablet (10 mg) by mouth in the morning. 30 tablet 5Active oxyCODONE (Roxicodone) 5 mg immediate release tablet Indications:PainTake 1 tablet (5 mg) by mouth every 6 (six) hours if needed for severe pain (8-10 pain score) for up to 20 doses. 20 tablet 5Active predniSONE (Deltasone) 10 mg tablet Indications:Kidney transplantedTake 1 tablet (10 mg) by mouth in the morning. 30 tablet 5Active aMILoride (Midamor) 5 mg tablet Indications:History of kidney transplantTake 1 tablet (5 mg) by mouth in the morning. 30 tablet /6Active BELATACEPT IV Infuse 5 mg/kg into a venous catheter every 28 (twenty-eight) days. After completion of loading dosesActive atovaquone (Mepron) 750 mg/5 mL suspension Indications:Kidney transplantedTake 10 mL (1,500 mg) by mouth in the morning. 300 mL 5Active mycophenolate (Myfortic) 180 mg EC tablet Indications:ImmunosuppressionTake 3 tablets (540 mg) by mouth two times daily. 180 tablet 5Active ondansetron (Zofran) 4 mg tablet Indications:NauseaTake 1 tablet (4 mg) by mouth if needed each day for nausea or vomiting for up to 5 doses. 5 tablet 5Active pantoprazole (ProtoNix) 40 mg EC tablet Indications:History of kidney transplantTake 1 tablet (40 mg) by mouth before breakfast. Do not crush, chew, or split. 30 tablet 6Active valGANciclovir (Valcyte) 450 mg tablet Indications:prevention of CMV disease after kidney transplantationTake 1 tablet (450 mg) by mouth in the morning. 30 tablet 5Active potassium chloride CR (Klor-Con M20) 20 mEq ER tablet Indications:HypokalemiaTake 1 tablet (20 mEq) by mouth in the morning. Do not crush or chew. 30 tablet 1115Active magnesium glycinate (Mag Glycinate) 100 mg tablet Indications:HypomagnesemiaTake 200 mg by mouth once daily as directed.01/14/2025 Active sod phos di, mono-K phos mono (K Phos Neutral) tablet Indications:History of kidney transplant,HypophosphatemiaTake 1 tablet by mouth two times daily.Discontinued(Therapy completed) pantoprazole (ProtoNix) 40 mg EC tablet Indications:Gastroesophageal reflux disease without esophagitisTake 1 tablet (40 mg) by mouth two times daily. 60 tablet /10/2024Discontinued(Patient Transfer) magnesium glycinate (Mag Glycinate) 100 mg tablet Indications:HypomagnesemiaTake 200 mg by mouth two times daily.11/19/2024 01/14/2025Discontinued valGANciclovir (Valcyte) 450 mg tablet Indications:prevention of CMV disease after kidney transplantationTake 1 tablet (450 mg) by mouth two times daily. 60 tablet Discontinued potassium chloride CR (Klor-Con M20) 20 mEq ER tablet Take 20 mEq by mouth in the morning. Do not crush or chew.01/14/2025Discontinued (Reorder) predniSONE (Deltasone) 20 mg tablet Indications:Kidney transplantedTake 1 tablet (20 mg) by mouth in the morning for 14 days. Then take 10 mg by mouth daily. 14 tablet /Expired Active Problems ProblemNoted DateDiagnosed DateCytomegalovirus (CMV) agolgnb9710/23/2024 Ldbgpzrypvfu94/24/2025Incisional hernia, without obstruction or gangrene 10/23/20248688Xhkhneydiedynptn00/10/2025Kidney obxgpenphjbh19/10/2025Donor specific antibody (DSA) nglymfih42/10/2025ute rejection of kidney ehnvudsafo81/10/2025 Guvvvhkrrho29/11/1451Ecfjvbkiocl25/19/0006Ragoizxm15/19/2025Hypomagnesemia 05/29/20247891Fektfgbfqr79/27/2025Metabolic qpetshwm51/27/2025Immunosuppression 05/21/20246060Epsajhkerkdutsqq91/19/5362Njcoyszjnmz59/19/2025KI (acute kidney injury)05/09/2024Delayed graft function of bfspkr2905/07/2024History of kidney zqimfnvool47/05/2025nemia, chronic krqivml6105/05/2024Immunosuppressive management encounter following kidney avqgczsdur26/03/2025Renal transplant, status post05/05/2024ESRD (end stage renal disease)05/03/20244604Mcouzs02/20/2024 Unilateral complete paralysis of vocal cord11/20/2023re-transplant evaluation for kidney wdbkipdalk17/20/2024End stage renal pixighh8505/15/2023Hyperlipidemia 05/15/2023Low back pain05/15/2023A (rheumatoid arthritis)05/15/2023History of smokeless tobacco use05/15/2023GERD (gastroesophageal reflux disease)05/15/2023 05/15/2023GoutS/P closure of vjtviemwn16/05/2023 Dtcpfwv95symptomatic microscopic cabwsnbtl07/19/2023 Hypertensive /19/2023Blood in urine08/18/2022hews nseinpo5308/18/2022 Gparhvv1708/18/20227334Zmgurjzdefggqq64/12/2023olycystic kidney rrszbnl4305/26/2022 Overview (09/04/2022): PRIMARY DIAGNOSIS: 2727 FORM PRIMARY DIAGNOSIS: 2727 FORM Cjgltfgsgxpzbs34/24/2023iverticular disease of colon03/28/2021Impaired fasting xrfiqca7003/28/20218240Hlyfmsxrs02/27/2021Major depressive disorder, recurrent episode, in partial sdtqrhryc64/29/2021heumatoid factor twugqehu30/14/2021 Morbid nhobgjm3803/16/2020Perforated diverticulum of large uixuqduar04/15/2020 Status post right hip natloodnaur69/16/2019Difficulty ccmdnxj1609/15/2018Right hip pain09/11/2018Avascular necrosis of bone of right hip08/26/2018Secondary xkurdhyhrgyt04/18/2019Aseptic necrosis of bone05/31/2018Osteoarthritis of hip 04/18/2018Lumbar and sacral pcxpigbocnhcbdfeu46/16/2018Vitamin D deficiency 11/13/2017Chronic gouty udmtnvcfb78/10/2018HSV-1 qxyerexhs98/06/2017 Hyperparathyroidism due to renal zuvhuzkkupsyc18/06/2016Barretts esophagus 08/10/2015Tobacco dependence pbamlkav48/24/2016Pure hypercholesterolemia 05/12/2015Sleep apnea10/29/2014 Overview (09/04/2022): bipap has a cpap has a cpap bipap has a cpap has a cpap Congenital polycystic kidney vhmqfhg8210/29/20141574Mzxpyvgzyvfot10/11/2015Panic rnawrqwu97/29/2008 Encounters DateTypeDepartmentCare JipxAwwbrvfttym52/27/2025Orders Only [facility] Transplant [address] [place] [phone] Sheryl Gao RN 01/24/2025ommunity Orders [facility] Transplant [address] [place] [phone] Milagro Last, LIGIA Kidney replaced by yugpvjsfna12/24/2025 8:55 AM EDTLab [facility] Outpatient Draw Station [address] [place] [phone] Encounter for long-term (current) use of medications; Kidney transplanted; Cytomegalovirus (CMV) viremia (CMS/HCC); Zsbkayfoeojrxrmfu12/15/2025 8:00 AM EDTFollow-Up [facility] Transplant [address] [place] [phone] Gualberto Serrano MD Immunosuppression (Primary Dx); Kidney transplanted; Donor specific antibody (DSA) positive; Cytomegalovirus (CMV) viremia (CMS/HCC); Hypomagnesemia; Hypokalemia; Hypophosphatemia; Incisional hernia, without obstruction or gangrene; Polycystic kidney albippz7101/14/2025 7:20 AM EDTLab [facility] Outpatient Draw Station [address] [place] [address] Encounter for long-term (current) use of medications; Kidney kmjryfoqzcqa93/15/2025 6:40 AM EDT - 01/14/2025 11:59 PM EDTHospital Encounter [facility] [address] [place] [phone] Kidney transplanted (Primary Dx) Discharge Disposition: Home or Self Care ()01/14/2025Orders Only [facility] Transplant [address] [place] [address] Gualberto Serrano MD History of kidney transplant; Immunosuppressive management encounter following kidney /08/2025 Refill [facility] Transplant [address] [place] [address] Vargas Byers MD History of kidney swcirlqtci08/01/2025Refill [facility] Transplant [address] [place] [address] Jasmina Mckinney RN Ehxurq5212/31/2024Orders Only [facility] Transplant [address] [place] [address] Dwaine Palacios MD Nausea (Primary Dx)12/30/2024Refill [facility] Transplant [address] [place] [address] Adela Alvarado MA 12/30/2024Telephone [facility] Transplant [address] [place] [address] Moshe Velazquez MA nexewxqzkr38/29/2025Telephone [facility] Transplant [address] [place] [address] Bita Lezama, Rufus, BCPS Transplant Pharmacist - Medication Ncrlfe5512/27/2024 11:00 AM EDTLab [facility] Outpatient Draw Station [address] [place] [phone] Encounter for long-term (current) use of medications; Kidney cmoscndpbmoj78/25/2025Community Orders [facility] Transplant [address] [place] [address] Milagro Last, RN Kidney replaced by bsdaqcigak02/15/2025 8:00 AM EDTFollow-Up [facility] Transplant [address] [place] [phone] Immunosuppressive management encounter following kidney transplant (Primary Dx); Encounter for aftercare following kidney transplant; Renovascular hypertension; Donor specific antibody (DSA) positive; Hypokalemia; Hypomagnesemia; Cytomegalovirus (CMV) viremia (CMS/HCC)12/15/2024 7:15 AM EDTLab [facility] Outpatient Draw Station [address] [place] [phone] Encounter for long-term (current) use of hknxjpjekvj31/15/2025 6:47 AM EDT - 12/15/2024 11:59 PM EDTHospital Encounter [facility] 2A Infusion [address] [place] [address] Kidney transplanted (Primary Dx) Discharge Disposition: Home or Self Care ()12/02/2024 10:30 AM EDTLab [facility] Outpatient Draw Station [address] [place] [phone] Encounter for long-term (current) use of medications; Kidney transplanted; Cytomegalovirus (CMV) viremia (CMS/HCC)12/02/2024 8:19 AM EDT - 12/02/2024 11:59 PM EDTHospital Encounter [facility] 2A Infusion [address] [place] [address] Kidney transplanted (Primary Dx) Discharge Disposition: Home or Self Care ()5Community Orders [facility] Transplant [address] [place] [address] Milagro Last, RN Kidney replaced by ggkyyjivzl84/25/2025Orders Only [facility] Transplant [address] [place] [address] Milagro Last, LIGIA Kidney replaced by transplant (Primary Dx)11/19/2024 8:00 AM EDTFollow-Up [facility] Transplant [address] [place] [address] Gualberto Serrano MD Immunosuppression (Primary Dx); Kidney transplanted; Cytomegalovirus (CMV) viremia (CMS/HCC); Hypomagnesemia; Acute rejection of kidney transplant; Donor specific antibody (DSA) positive; Incisional hernia, without obstruction or gangrene; Primary hypertension; Hypophosphatemia; Metabolic pfhekevz39/20/2025 7:00 AM EDab [facility] Kidney [place] [phone] Encounter for long-term (current) use of medications; Encounter for aftercare following kidney transplant; Kidney replaced by transplant; Cytomegalovirus (CMV) viremia (CMS/HCC)11/19/2024Orders Only [facility] Transplant [address] [place] [address] Milagro Last, LIGIA Cytomegalovirus (CMV) viremia (CMS/HCC) (Primary Dx)11/17/2024 7:23 AM EDT - 11/17/2024 11:59 PM EDTHospital Encounter [facility] 2A Infusion [address] [place] [address] Kidney transplanted (Primary Dx) Discharge Disposition: Home or Self Care (01)11/12/2024 7:10 AM EDab [facility] Outpatient Draw Station [address] [place] [phone] Encounter for long-term (current) use of gtlljuotdpy79/11/2025Orders Only [facility] Transplant [address] [place] [address] Roxie Hughes RN History of kidney transplant (Primary Dx)11/07/2024 7:30 AM EDab [facility] Outpatient Draw Station [address] [place] [address] Kidney transplanted; Cytomegalovirus (CMV) viremia (CMS/HCC); Kidney replaced by transplantfrom Last 3 Months Immunizations ImmunizationAdministration DatesNext DueInfluenza, Injectable, MDCK, preservative free02/15/2018Influenza, Fjgdouxyvhc54/02/2017Influenza, injectable, MDCK, preservative free, qfybtozazkqa18/29/2022,03/28/2021, 02/13/2020,02/15/2018Influenza, injectable, MDCK, qvqxoviipppz86/06/2019 Influenza, injectable, akiecankcdik29/29/2016Influenza, injectable, quadrivalent, preservative free02/01/2017Pneumococcal Conjugate PCV Family History Medical HistoryRelationNameCommentsHeart attackFatherHeart diseaseFather Polycystic kidney diseaseFatherDiabetesMaternal GrandfatherDiabetesMaternal GrandmotherEsophageal cancerMaternal GrandmotherNo Known ProblemsMotherKidney cancerMother's BrotherRCCCancerMother's Sisterfemale organsDiabetesPaternal GrandfatherDiabetesPaternal GrandmotherAnxiety disorderSister 1BobbyPolycystic kidney diseaseSister 1BobbyKidney failureSister 2Brandys/p kidney transplant olycystic kidney diseaseSister 2BrandyRelationNameStatusCommentsDaughter AliveFatherDeceasedMaternal GrandfatherMaternal GrandmotherMotherAliveMother's BrotherMother's SisterPaternal GrandfatherPaternal GrandmotherSister 1BobbyAlive Sister 2BrandyAliveSon 1AliveSon 2AliveSon 3Alive Social History Tobacco UseTypesPacks/DayYears UsedDateSmoking Tobacco: NeverSmokeless Tobacco: FormerSnuffQuit: 01/29/2023 Tobacco Cessation:Counseling Given: Not Answered Alcohol UseStandard Drinks/WeekCommentsNot Currently0 (1 standard drink = 0.6 oz pure alcohol)[facility] UtilitiesAnswerDate RecordedIn the past 12 months has the [employer], gas, oil, or water [employer] threatened to shut off services in your home?No10/06/2024Humiliation, Afraid, Rape, and Kick questionnaireAnswerDate RecordedWithin the last year, have you been afraid of your partner or ex-partner?No10/06/2024Within the last year, have you been humiliated or emotionally abused in other ways by your partner or ex-partner?No10/06/2024 Within the last year, have you been kicked, [...] heating?Not hard at all10/06/2024PHQ-2AnswerDate RecordedPatient Health Questionnaire-2 Kyfts918UT Safety & Environment AnswerDate RecordedWithin the last [...] were you homeless or living in a assisted (including now)?No10/06/2024Hunger Vital SignAnswerDate RecordedWithin the past 12 months, you worried that your food would run out before you got the money to buymore.Never true10/06/2024Within the past 12 months, the food you bought just didn't last and you didn't have money to get more.Never true 10/06/2024Sex and Gender InformationValueDate RecordedSex Assigned at BirthMale 02/26/2023 9:51 AM ESTLegal FezGjsf92/03/2022 3:32 PM EDTGender IdentityMale 02/26/2023 9:51 AM ESTSexual OrientationHeterosexual or Gazcfnoo33/27/2023 9:51 AM EST Last Filed Vital Signs Vital SignReadingTime TakenCommentsBlood Umscvmow725/801 8:35 AM EDT Enaql677201/14/2025 8:35 AM BBPTlegqtiemco51.6 ??C (97.9 ??F)01/14/2025 8:35 AM EDTRespiratory Kxgg6926 8:35 AM EDTOxygen Lhzyinrnns77%01/14/2025 8:35 AM EDTInhaled Oxygen Concentration--Dzqddo85.8 kg (197 lb 14.4 oz)01/14/2025 8:35 AM NOCEelsct261.3 cm (5' 9 )01/14/2025 8:35 AM EDTBody Mass Index29.22 01/14/2025 8:35 AM EDT Plan of Treatment DateTypeDepartmentCare Team (Latest Contact Info)Rxhuimllcqp60/12/2025 8:00 AM ESTAppointment [facility] 2A Infusion [address] [place] [phone] 02/16/2025 8:00 AM ESTFollow-Up [facility] Transplant [address] [place] [phone] 03/16/2025 9:00 AM ESTFollow-Up [facility] Transplant [address] [place] [address] Gualberto Serrano MD [address] [place] [phone] Health MaintenanceDue DateLast DoneCommentsMedicare Annual Wellness (AWV) 1977Meningococcal Vaccine (1 - Risk 2-dose series)07/24/1979COVID-19 Vaccine (#1)1982Meningococcal B Vaccine (1 of 4 - Increased Risk) 07/24/1987Hepatitis B Vaccines (1 of 3 - 19+ 3-dose series)1996Zoster Vaccines (1 of 2)1996Adult Woiqerq9507/24/1999Influenza Vaccine (#1) 512/, 03/28/2021, 02/13/2020, Additional history exists Depression Qvmoisvsq36Pneumococcal Vaccine: Pediatrics (0 to 5 Years) and At-Risk Patients (6 to 64 Years)Nizkllwlf81/13/2023Colonoscopy Ombnpmloyigq24/18/2023, 3Colorectal Cancer ScreeningDiscontinuedCT ColonographyDiscontinuedFIT-DNADiscontinuedFITDiscontinuedFOBTDiscontinuedHIB VaccinesAged OutNo longer eligible based on patient's age to complete this topic HPV VaccinesAged OutNo longer eligible based on patient's age to complete this topicIPV VaccinesAged OutNo longer eligible based on patient's age to complete this topicRotavirus VaccinesAged OutNo longer eligible based on patient's age to complete this topicSigmoidoscopyDiscontinued Medical Devices ExplantedTypeAreaManufacturerDevice IdentifierShelf Expiration DateModel / Serial / LotSof-Flex Double Pigtail Ureteral Stent Set Implanted:Qty: 1 on 05/03/2024 by Gualberto Serrano MD at [facility] Explanted:Qty: 1 on 06/03/2024 by Trever Morales MDStentN/A: UreterCOOK MLYUEHQUQCTF00/07/[id number] / [id number] / [id number] Procedures Procedure NamePriorityDate/TimeAssociated DiagnosisCommentsBILIRUBIN, DIRECT Zbicgkf7201/23/2025 8:49 AM EDT Encounter for long-term (current) use of medications SINGLE ANTIGEN CLASS OXWfiizat79/24/2025 8:49 AM EDT Kidney transplanted SINGLE ANTIGEN CLASS EPujgoam67/24/2025 8:49 AM EDT Kidney transplanted CBC WITH AUTO MHIFXLDCZQMHVggwhcc22/24/2025 8:49 AM EDT Encounter for long-term (current) use of medications TACROLIMUS TUZIVHmnfwii85/24/2025 8:49 AM EDT Immunosuppression CMV DNA, QUANTITATIVE, NAAT, QEEGIVIowwhsx48/24/2025 8:49 AM EDT Kidney transplanted Cytomegalovirus (CMV) viremia (CMS/HCC) DONOR SPECIFIC YOSMMBTVRzgpuyt66/24/2025 8:49 AM EDT Kidney transplanted URIC DMRFIrhvtgc63/24/2025 8:49 AM EDT Encounter for long-term (current) use of medications BJBACKKULJLwtaylu68/24/2025 8:49 AM EDT Encounter for long-term (current) use of medications UVQSOFVAPEwlcpjm01/24/2025 8:49 AM EDT Encounter for long-term (current) use of medications COMPREHENSIVE METABOLIC DWGMMHwlynct34/24/2025 8:49 AM EDT Encounter for long-term (current) use of medications CBC AND BZVSZMXDGDSJNbxsjap38/24/2025 8:49 AM EDT Encounter for long-term (current) use of medications CMV DNA, QUANTITATIVE, NAAT, PDTCFVSozjkcu10/15/2025 11:11 AM EDT History of kidney transplant Immunosuppressive management encounter following kidney transplant URINALYSIS WITH REFLEX JTEBEMSEhhushp42/15/2025 10:37 AM EDT Kidney transplanted CREATININE, URINE, PLVTNHTfoozjy96/15/2025 10:37 AM EDT Kidney transplanted PROTEIN, URINE, WUIDWOSoelsry83/15/2025 10:37 AM EDT Kidney transplanted BILIRUBIN, XHCARSCsaqyam21/15/2025 6:44 AM EDT Encounter for long-term (current) use of medications SINGLE ANTIGEN CLASS LATkwcejx74/15/2025 6:44 AM EDT Kidney transplanted SINGLE ANTIGEN CLASS KDrazmch78/15/2025 6:44 AM EDT Kidney transplanted CBC WITH AUTO QUCKCAXWVDJMStsigon69/15/2025 6:44 AM EDT Encounter for long-term (current) use of medications DONOR SPECIFIC WGSXLKHATxwojql27/15/2025 6:44 AM EDT Kidney transplanted TACROLIMUS NTFFATjuuhsd61/15/2025 6:44 AM EDT Encounter for long-term (current) use of medications URIC NIFZCtydcgf83/15/2025 6:44 AM EDT Encounter for long-term (current) use of medications URJNJLCRMYDicvtlt41/15/2025 6:44 AM EDT Encounter for long-term (current) use of medications RXYOTJYTTBqpeydo37/15/2025 6:44 AM EDT Encounter for long-term (current) use of medications COMPREHENSIVE METABOLIC VWBZMWkvashs31/15/2025 6:44 AM EDT Encounter for long-term (current) use of medications CBC AND YUQVEUQBYMXEDmfkeql14/15/2025 6:44 AM EDT Encounter for long-term (current) use of medications BILIRUBIN, UJJZOZCvuwjei72/27/2025 11:05 AM EDT Encounter for long-term (current) use of medications SINGLE ANTIGEN CLASS ICJhneajx82/27/2025 11:05 AM EDT Kidney transplanted SINGLE ANTIGEN CLASS DOttxdqm03/27/2025 11:05 AM EDT Kidney transplanted CBC WITH AUTO AXGYULUJIPIUAhynoes31/27/2025 11:05 AM EDT Encounter for long-term (current) use of medications DONOR SPECIFIC AVKEHOFGBsqbjxz36/27/2025 11:05 AM EDT Kidney transplanted TACROLIMUS STACMFzjbhrc67/27/2025 11:05 AM EDT Encounter for long-term (current) use of medications URIC JRPUTyqzren56/27/2025 11:05 AM EDT Encounter for long-term (current) use of medications ILBWXVTEBOLfdrmld16/27/2025 11:05 AM EDT Encounter for long-term (current) use of medications DDDOKXRCDCdisfhk48/27/2025 11:05 AM EDT Encounter for long-term (current) use of medications COMPREHENSIVE METABOLIC PJTBGVsyhdta86/27/2025 11:05 AM EDT Encounter for long-term (current) use of medications CBC AND GILREELOBFHSEzqimcz81/27/2025 11:05 AM EDT Encounter for long-term (current) use of medications TONYA BXKIXMMYLvaruxu86/27/2025 11:05 AM EDT Kidney replaced by transplant URINALYSIS WITH REFLEX WANJGMEKsnpjuy55/15/2025 8:45 AM EDT Encounter for aftercare following kidney transplant PROTEIN, URINE, TIXYHHQzrwact00/15/2025 8:45 AM EDT Encounter for aftercare following kidney transplant CREATININE, URINE, VTLXYUKtwgnkv80/15/2025 8:45 AM EDT Encounter for aftercare following kidney transplant MANUAL ZFLRWJPNYFWTOakflcx98/15/2025 6:55 AM EDT Encounter for long-term (current) use of medications BILIRUBIN, YTKWOLIwjvskb83/15/2025 6:55 AM EDT Encounter for long-term (current) use of medications CBC WITH AUTO OHNIPAUMQSXXSyoempl79/15/2025 6:55 AM EDT Encounter for long-term (current) use of medications TACROLIMUS QPLABQkgeslm26/15/2025 6:55 AM EDT Encounter for long-term (current) use of medications URIC KFBTTanplru67/15/2025 6:55 AM EDT Encounter for long-term (current) use of medications UJHQPOBVCYSftjbma76/15/2025 6:55 AM EDT Encounter for long-term (current) use of medications RILEUPFJTPqjxomj91/15/2025 6:55 AM EDT Encounter for long-term (current) use of medications COMPREHENSIVE METABOLIC IDYWWHgjaiyv74/15/2025 6:55 AM EDT Encounter for long-term (current) use of medications CBC AND VCIGNCYXXKJKOprhjgw18/15/2025 6:55 AM EDT Encounter for long-term (current) use of medications MANUAL MANGHPROEMBMFaelbyw57/02/2025 10:05 AM EDT Encounter for long-term (current) use of medications BILIRUBIN, BDTYXRZxgqvki74/02/2025 10:05 AM EDT Encounter for long-term (current) use of medications SINGLE ANTIGEN CLASS QMJxiktia60/02/2025 10:05 AM EDT Kidney transplanted SINGLE ANTIGEN CLASS NFlfkbqb71/02/2025 10:05 AM EDT Kidney transplanted CBC WITH AUTO IZXXHKELIOVINizrafh57/02/2025 10:05 AM EDT Encounter for long-term (current) use of medications CMV DNA, QUANTITATIVE, NAAT, LXRFRGTfhtwxm44/02/2025 10:05 AM EDT Kidney transplanted Cytomegalovirus (CMV) viremia (CMS/HCC) DONOR SPECIFIC TLDDCZPSBhxlvsc05/02/2025 10:05 AM EDT Kidney transplanted TACROLIMUS AGWRDYfnfqty28/02/2025 10:05 AM EDT Encounter for long-term (current) use of medications URIC AGDJKrqnvgj47/02/2025 10:05 AM EDT Encounter for long-term (current) use of medications HUVFIRNAARRumfilx85/02/2025 10:05 AM EDT Encounter for long-term (current) use of medications PMQDFFVGKAueyzvv60/02/2025 10:05 AM EDT Encounter for long-term (current) use of medications COMPREHENSIVE METABOLIC LNIMEMbauwrk24/02/2025 10:05 AM EDT Encounter for long-term (current) use of medications CBC AND IMLDDVISWMJGPqerjgr03/02/2025 10:05 AM EDT Encounter for long-term (current) use of medications TONYA WSMWBJYEWaccyxi39/02/2025 10:05 AM EDT Kidney replaced by transplant POCT URINE DIP AUTO W/O ITFSPTraubbm24/20/2025 1:47 PM EDT Kidney transplanted CMV DNA, QUANTITATIVE, NAAT, YTYWDJNokefmq48/20/2025 9:46 AM EDT Cytomegalovirus (CMV) viremia (CMS/HCC) BILIRUBIN, UXQGFQWzulqtc13/20/2025 6:55 AM EDT Encounter for long-term (current) use of medications SINGLE ANTIGEN CLASS EVIrqdips64/20/2025 6:55 AM EDT Encounter for aftercare following kidney transplant Kidney replaced by transplant Encounter for long-term (current) use of medications SINGLE ANTIGEN CLASS VEecngvj72/20/2025 6:55 AM EDT Encounter for aftercare following kidney transplant Kidney replaced by transplant Encounter for long-term (current) use of medications CBC WITH AUTO ZDDIRZQTKMGAXhjsxpl80/20/2025 6:55 AM EDT Encounter for long-term (current) use of medications TACROLIMUS IQCEHJachcxn58/20/2025 6:55 AM EDT Encounter for long-term (current) use of medications URIC ZFOPPzvcotq54/20/2025 6:55 AM EDT Encounter for long-term (current) use of medications RAETLLKLOWAwxnkof73/20/2025 6:55 AM EDT Encounter for long-term (current) use of medications VIOHQAYGZTdrxwoz68/20/2025 6:55 AM EDT Encounter for long-term (current) use of medications DONOR SPECIFIC DLZIACUQOkfjevd47/20/2025 6:55 AM EDT Encounter for aftercare following kidney transplant Kidney replaced by transplant Encounter for long-term (current) use of medications COMPREHENSIVE METABOLIC LZPVYKigeeed46/20/2025 6:55 AM EDT Encounter for long-term (current) use of medications CBC AND QZGJWVAMUSZMDhieyri53/20/2025 6:55 AM EDT Encounter for long-term (current) use of medications BILIRUBIN, ULETDAIbvlkqw47/13/2025 6:43 AM EDT Encounter for long-term (current) use of medications CBC WITH AUTO GEPLFXCMKBYAJpqzhcj60/13/2025 6:43 AM EDT Encounter for long-term (current) use of medications TACROLIMUS CIVJJHsgiclo67 6:43 AM EDT Encounter for long-term (current) use of medications URIC QJWVXmwiefv27/13/2025 6:43 AM EDT Encounter for long-term (current) use of medications PUEUISNMVKZkhdykl94/13/2025 6:43 AM EDT Encounter for long-term (current) use of medications IKVDMGJCHBrhchsh56/13/2025 6:43 AM EDT Encounter for long-term (current) use of medications COMPREHENSIVE METABOLIC VQREMEslzfzq74/13/2025 6:43 AM EDT Encounter for long-term (current) use of medications CBC AND TLNCQFIHJCYDTdibusq34/13/2025 6:43 AM EDT Encounter for long-term (current) use of medications BILIRUBIN, BCYGCMNkcqvgy59/08/2025 7:05 AM EDT Encounter for long-term (current) use of medications SINGLE ANTIGEN CLASS SPOgfehig03/08/2025 7:05 AM EDT Kidney transplanted SINGLE ANTIGEN CLASS JCvctomh87/08/2025 7:05 AM EDT Kidney transplanted CMV DNA, QUANTITATIVE, NAAT, MRTMNREufqwsj89/08/2025 7:05 AM EDT Kidney transplanted Cytomegalovirus (CMV) viremia (CMS/HCC) DONOR SPECIFIC WUWIXGWKHkmnxoe71/08/2025 7:05 AM EDT Kidney transplanted CBC WITH AUTO RQKPRJBLIQMNFbzhoyd36/08/2025 7:05 AM EDT Encounter for long-term (current) use of medications TESTOSTERONE, FREE AND TOTAL, AND QDPIZxcblqc20/08/2025 7:05 AM EDT Encounter for long-term (current) use of medications Encntr screen for malignant neoplasm of genitourinary organs LIPID TDEZTEpjjdxg64/08/2025 7:05 AM EDT Encounter for long-term (current) use of medications HEMOGLOBIN U7XRmpjfoa99/08/2025 7:05 AM EDT Encounter for long-term (current) use of medications BK VIRUS, PLASMA, PIWKNIOXTXOQYvejsek00/08/2025 7:05 AM EDT Encounter for long-term (current) use of medications TACROLIMUS KEHQUTutupvd91/08/2025 7:05 AM EDT Encounter for long-term (current) use of medications URIC BKHIDnreotf87/08/2025 7:05 AM EDT Encounter for long-term (current) use of medications HWMKRCJBZSLattofe78/08/2025 7:05 AM EDT Encounter for long-term (current) use of medications MZHKBYCWZXrkrdez23/08/2025 7:05 AM EDT Encounter for long-term (current) use of medications COMPREHENSIVE METABOLIC XQOWUTgcrsys12/08/2025 7:05 AM EDT Encounter for long-term (current) use of medications CBC AND XXPLKPIJQZHSEwhokzr54/08/2025 7:05 AM EDT Encounter for long-term (current) use of medications DIAGNOSTIC RXYPYKIPFTDIprxqvl88/18/2023 2:12 PM EDT Diverticular disease of colon from Last 3 Months or Most Recently Relevant to Health Maintenance Results * Single antigen class II (01/23/2025 8:49 AM EDT) Only the most recent of6 resultswithin the time period is included. ComponentValueRef RangeTest MethodAnalysis TimePerformed AtPathologist Signature Tested [id number]/30/2025 12:24 PM [facility] Test MethodClass II Single Jcaoymb6301/29/2025 12:24 PM EDT[facility])Comment:Class II Antigen MicrobeadsSigned BySigned by Trever Figueroa CHT([facility]) COURTNEY([facility]), [employer] Trans[facility] Uilwshzjou05/30/2025 12:24 PM EDT[facility])Class II SpecificitiesDR:15 DQ:6 DQA:011 12:24 PM EDTRE[facility])Specimen (Source)Anatomical Location / LateralityCollection Method / VolumeCollection TimeReceived TimeBloodVenous blood specimen / UnknownVenipuncture / Rvyzkge8701/23/2025 8:49 AM EDT1 9:21 AM EDT Narrative Authorizing ProviderResult TypeResult StatusGualberto CHRISTIANSON BLOOD ORDERABLES Final ResultPerforming OrganizationAddressCity/State/ZIP CodePhone Number [facility] ([facility]) [address] [place] [address], * Single antigen class I (01/23/2025 8:49 AM EDT) Only the most recent of6 resultswithin the time period is included. ComponentValueRef RangeTest MethodAnalysis TimePerformed AtPathologist Signature Tested [id number] 12:24 PM EDTRE[facility]) Test MethodClass I Single Yjifrmk4201/29/2025 12:24 PM EDTRE[facility])Signed BySigned by Trever Figueroa CHT([facility]) COURTNEY([facility]), [employer] Transplant Wcpkynotik69/30/2025 12:24 PM EDT[facility]) Comment:Class I Antigen MicrobeadsClass I SpecificitiesA: 12:24 PM EDTRE[facility])Specimen (Source)Anatomical Location / LateralityCollection Method / VolumeCollection TimeReceived TimeBloodVenous blood specimen / UnknownVenipuncture / Sgpfozg9801/23/2025 8:49 AM EDT1 9:21 AM EDT Narrative Authorizing ProviderResult TypeResult StatusKunal Maggie MDLAB BLOOD ORDERABLES Final ResultPerforming OrganizationAddressCity/State/ZIP CodePhone Number [facility] ([facility]) [address] [place] [address], [place] [phone] * (ABNORMAL) CBC auto differential (01/23/2025 8:49 AM EDT) Only the most recent of8 resultswithin the time period is included. ComponentValueRef RangeTest MethodAnalysis TimePerformed AtPathologist Signature Auto WBC3.40(L)4.00 - 10.60 10*3/uL01/23/2025 9:40 AM [facility] ([facility])RBC5.604.20 - 5.70 10*6/uL01/23/2025 9:40 AM [facility] ([facility])Lhljmnlphi23.313.0 - 17.0 g/dL01/23/2025 9:40 AM [facility] ([facility])Dzjcdnkvqf54.539.0 - 50.0 %01/23/2025 9:40 AM [facility] ([facility])MCV84.882.0 - 98.0 fL01/23/2025 9:40 AM [facility] ([facility])MCH 25.5(L)27.0 - 33.0 pg01/23/2025 9:40 AM [facility] ([facility])MCHC30.1(L) 32.0 - 35.0 g/dL01/23/2025 9:40 AM [facility] ([facility])RDW15.5(H)11.5 - 15.0 %01/23/2025 9:40 AM [facility] ([facility])Neutrophils %75.8(H)40.0 - 72.0 %01/23/2025 9:40 AM [facility] ([facility])Lymphocytes %4.7(L)20.0 - 45.0 %01/23/2025 9:40 AM [facility] ([facility])Monocytes %14.7(H)5.0 - 12.0 %01/23/2025 9:40 AM [facility] ([facility])Eosinophils %2.40.0 - 6.0 %01/23/2025 9:40 AM [facility] ([facility])Basophils %1.2(H)0.0 - 1.0 % 01/23/2025 9:40 AM [facility] ([facility])Neutrophils Absolute2.581.60 - 7.60 10*3/uL01/23/2025 9:40 AM [facility] ([facility])Lymphocytes Absolute 0.16(L)1.20 - 4.00 10*3/uL01/23/2025 9:40 AM [facility] ([facility]) Monocytes Absolute0.500.10 - 1.00 10*3/uL01/23/2025 9:40 AM [facility] ([facility])Eosinophils Absolute0.080.00 - 0.50 10*3/uL01/23/2025 9:40 AM [facility] ([facility])Basophils Absolute0.040.00 - 0.20 10*3/uL01/23/2025 9:40 AM [facility] ([facility])Dxewfrjbe371265 - 400 10*3/uL01/23/2025 9:40 AM EDT [facility] ([facility])nRBC %0.00 %01/23/2025 9:40 AM [facility] ([facility])Immature Granulocytes %1.2(H)0.0 - 1.0 %01/23/2025 9:40 AM [facility] ([facility])Immature Granulocytes Absolute0.040.00 - 0.20 10*3/uL 01/23/2025 9:40 AM [facility] ([facility])Specimen (Source)Anatomical Location / LateralityCollection Method / VolumeCollection TimeReceived TimeBlood Venous blood specimen / UnknownVenipuncture / Gnbgvkm0001/23/2025 8:49 AM EDT 01/23/2025 9:30 AM EDT Narrative Authorizing ProviderResult TypeResult StatusJordpricilla Klein [facility] BLOOD ORDERABLESFinal ResultPerforming OrganizationAddressCity/State/ZIP CodePhone Number [facility] ([facility]) [address] [place] [address] * (ABNORMAL) Tacrolimus level (01/23/2025 8:49 AM EDT) Only the most recent of8 resultswithin the time period is included. ComponentValueRef RangeTest MethodAnalysis TimePerformed AtPathologist Signature Tacrolimus Lvl2.7(L)5.0 - 20.0 ng/mL01/23/2025 1:51 PM EDTRUST [facility] ([facility])Comment:The [employer] Tacrolimus assay is a delayed one-step immunoassay for the quantitative determination of tacrolimus in human whole blood using the chemiluminescent microparticle immunoassay (CMIA) technology with flexible assay protocols, referred to as Chemiflex.Specimen (Source) Anatomical Location / LateralityCollection Method / VolumeCollection Time Received TimeBloodVenous blood specimen / UnknownVenipuncture / Unknown 01/23/2025 8:49 AM EDT1 9:30 AM EDT Narrative Authorizing ProviderResult TypeResult StatusKunal Maggie CHRISTIANSON BLOOD ORDERABLES Final ResultPerforming OrganizationAddressCity/State/ZIP CodePhone Number [facility] ([facility]) [address] [place] [address] * (ABNORMAL) CMV DNA, quantitative, NAAT, plasma (01/23/2025 8:49 AM EDT) Only the most recent of5 resultswithin the time period is included. ComponentValueRef RangeTest MethodAnalysis TimePerformed AtPathologist Signature CMV Qnt by NAAT, Plasma IU/mLNot QuantifiedIU/mL01/26/2025 6:16 PM EDTAR[facility] ([facility])CMV Qnt by NAAT, Plasma log IU/mLNot Quantifiedlog IU/mL 01/26/2025 6:16 PM EDTARUP [facility] ([facility])Comment: Not Quantified- CMV DNA was detected, but at a level below 1.54 log IU/mL (34.5 IU/mL). Virus detected at a level below 1.54 log IU/mL cannot be accurately quantified by this assay. CMV Qnt by NAAT, Plasma InterpDetected(A)Not Ttdmtaqq18/27/2025 6:16 PM EDTARUP LAB[facility]ATORY ([facility])Comment: INTERPRETIVE INFORMATION: CMV by Quantitative NAAT, [...] commutability issues with the standard. Performed By: [facility] [address] [place] [id number] Guidance Adviser: Venkata Leal MD, PhD CLIA Number: [id number] Specimen (Source)Anatomical Location / LateralityCollection Method / Volume Collection TimeReceived TimeBloodVenous blood specimen / UnknownVenipuncture / Rmeewgt9601/23/2025 8:49 AM EDT1 9:30 AM EDT Narrative Authorizing ProviderResult TypeResult StatusGualberto Serrano [facility] BLOOD ORDERABLES Final ResultPerforming OrganizationAddressCity/State/ZIP CodePhone Number [facility] ([facility]) [address] [place] [address] * Uric acid (01/23/2025 8:49 AM EDT) Only the most recent of8 resultswithin the time period is included. ComponentValueRef RangeTest MethodAnalysis TimePerformed AtPathologist Signature Uric Acid4.54.4 - 7.6 mg/dL01/23/2025 9:50 AM EDTRUST [facility] ([facility]) Specimen (Source)Anatomical Location / LateralityCollection Method / Volume Collection TimeReceived TimeBloodVenous blood specimen / UnknownVenipuncture / Fhdxyta7501/23/2025 8:49 AM EDT1 9:28 AM EDT Narrative Authorizing ProviderResult TypeResult StatusValarie Klein [facility] BLOOD ORDERABLESFinal ResultPerforming OrganizationAddressCity/State/ZIP CodePhone Number [facility] ([facility]) [address] [place] [address] * Phosphorus (01/23/2025 8:49 AM EDT) Only the most recent of8 resultswithin the time period is included. ComponentValueRef RangeTest MethodAnalysis TimePerformed AtPathologist Signature Phosphorus2.52.5 - 5.0 mg/dL01/23/2025 9:50 AM [facility]) Specimen (Source)Anatomical Location / LateralityCollection Method / Volume Collection TimeReceived TimeBloodVenous blood specimen / UnknownVenipuncture / Wrdqonc1201/23/2025 8:49 AM EDT1 9:28 AM EDT Narrative Authorizing ProviderResult TypeResult StatusValarie QuesadaLogansport Memorial HospitalLAB BLOOD ORDERABLESFinal ResultPerforming OrganizationAddressCity/State/ZIP CodePhone Number [facility] ([facility]) [address] [place] [address] * Magnesium (01/23/2025 8:49 AM EDT) Only the most recent of8 resultswithin the time period is included. ComponentValueRef RangeTest MethodAnalysis TimePerformed AtPathologist Signature Magnesium2.01.9 - 2.7 mg/dL01/23/2025 9:50 AM [facility]) Specimen (Source)Anatomical Location / LateralityCollection Method / Volume Collection TimeReceived TimeBloodVenous blood specimen / UnknownVenipuncture / Ftgltln2101/23/2025 8:49 AM EDT1 9:28 AM EDT Narrative Authorizing ProviderResult TypeResult StatusValarie [facility] BLOOD ORDERABLESFinal ResultPerforming OrganizationAddressCity/State/ZIP CodePhone Number [facility]) [address] [place] [address] * Bilirubin, direct (01/23/2025 8:49 AM EDT) Only the most recent of8 resultswithin the time period is included. ComponentValueRef RangeTest MethodAnalysis TimePerformed AtPathologist Signature Bilirubin, Direct0.10 - 0.2 mg/dL01/23/2025 9:50 AM [facility])Specimen (Source)Anatomical Location / LateralityCollection Method / VolumeCollection TimeReceived TimeBloodVenous blood specimen / Unknown Venipuncture / Vwtffnj3201/23/2025 8:49 AM EDT1 9:28 AM EDT Narrative Authorizing ProviderResult TypeResult StatusDionnapricilla [facility]LAB BLOOD ORDERABLESFinal ResultPerforming OrganizationAddressCity/State/ZIP CodePhone Number [facility] ([facility] [address] [place] [address] * (ABNORMAL) Comprehensive metabolic panel (01/23/2025 8:49 AM EDT) Only the most recent of8 resultswithin the time period is included. ComponentValueRef RangeTest MethodAnalysis TimePerformed AtPathologist Signature Nevogo189690 - 145 mmol/L1 9:50 AM [facility] ([facility]) Potassium3.93.5 - 5.1 mmol/L1 9:50 AM [facility] ([facility]) Lwyhbuyx26234 - 107 mmol/L1 9:50 AM [facility] ([facility])CO226 21 - 31 mmol/L1 9:50 AM [facility] ([facility])Anion Zft634 - 20 mmol/L1 9:50 AM [facility] ([facility])MLG971 - 25 mg/dL 01/23/2025 9:50 AM [facility] ([facility])Creatinine1.37(H)0.70 - 1.30 mg/dL01/23/2025 9:50 AM [facility] ([facility])BUN/Creatinine Ratio10.9 01/23/2025 9:50 AM [facility] ([facility])Kaowitp7421 - 100 mg/dL 01/23/2025 9:50 AM [facility] ([facility])Calcium9.58.6 - 10.3 mg/dL 01/23/2025 9:50 AM [facility] ([facility])HMG6845 - 39 U/L1 9:50 AM [facility] ([facility])ALT (SGPT)177 - 52 U/L1 9:50 AM [facility] ([facility])Alkaline Vfvmbhadxrx034(H)34 - 104 U/L1 9:50 AM [facility] ([facility])Total Protein6.56.0 - 8.3 g/dL01/23/2025 9:50 AM [facility] ([facility])Albumin4.43.5 - 5.7 g/dL01/23/2025 9:50 AM [facility] ([facility])Total Bilirubin0.50.3 - 1.0 mg/dL01/23/2025 9:50 AM [facility] ([facility])eGFR64.0>60.0 mL/min/1.73m* 9:50 AM [facility] ([facility])Comment:[facility]???s estimated glomerular filtration rate (eGFR) will no [...] not disproportionately affect any one group of individuals.Specimen (Source) Anatomical Location / LateralityCollection Method / VolumeCollection Time Received TimeBloodVenous blood specimen / UnknownVenipuncture / Unknown 01/23/2025 8:49 AM EDT1 9:28 AM EDT Narrative Authorizing ProviderResult TypeResult StatusJobrandon Klein [facility] BLOOD ORDERABLESFinal ResultPerforming OrganizationAddressCity/State/ZIP CodePhone Number [facility] ([facility]) [address] [place] [address] * Urinalysis with reflex culture (01/14/2025 10:37 AM EDT) Only the most recent of2 resultswithin the time period is included. ComponentValueRef RangeTest MethodAnalysis TimePerformed AtPathologist Signature Color, UrineLight-YellowColorless, Yellow, Light-Psabpb3201/14/2025 11:05 AM EDT [facility] ([facility])Clarity, UtawfYouguNoztt62/15/2025 11:05 AM EDTRUST [facility] ([facility])pH, Urine6.55.0 - 8.0 pH01/14/2025 11:05 AM [facility] ([facility])Leukocytes, FrpchEsmzaawcTkdgcrwo97/15/2025 11:05 AM EDT [facility] ([facility])Nitrite, JydyhYdkemjwaTujtwele15/15/2025 11:05 AM EDT [facility] ([facility])Protein, UrineNegativeNegative mg/dL01/14/2025 11:05 AM [facility] ([facility])Glucose, UrineNormalNormal mg/dL01/14/2025 11:05 AM [facility] ([facility])Bilirubin, DucheMoaaplfrYgpwehwj08/15/2025 11:05 AM [facility] ([facility])Specific [place], Urine1.0131.010 - 1.030 01/14/2025 11:05 AM [facility] ([facility])Ketones, UrineNegativeNegative mg/dL01/14/2025 11:05 AM [facility] ([facility])Blood, UrineNegative Pltrbuog33/15/2025 11:05 AM [facility] ([facility])Urobilinogen, Urine NormalNormal mg/dL01/14/2025 11:05 AM [facility] ([facility])Specimen (Source)Anatomical Location / LateralityCollection Method / VolumeCollection TimeReceived TimeUrineUrine specimen obtained by clean catch procedure / Unknown Non-blood Collection / Dmkmsbf2101/14/2025 10:37 AM EDT1 10:47 AM EDT Narrative [facility] ([facility]) - 01/14/2025 11:05 AM EDT Microscopics not performed on urines with negative chemical reactions unless requested on original order. Authorizing ProviderResult TypeResult StatusKunal Maggie CHRISTIANSON URINE ORDERABLES Final ResultPerforming OrganizationAddressCity/State/ZIP CodePhone Number [facility] ([facility]) [address] [place] [address] * Protein, urine, random (01/14/2025 10:37 AM EDT) Only the most recent of2 resultswithin the time period is included. ComponentValueRef RangeTest MethodAnalysis TimePerformed AtPathologist Signature Protein, Ur17.8mg/dL01/14/2025 11:31 AM [facility] ([facility])Comment: There are no established reference values for random urine specimens.Specimen (Source)Anatomical Location / LateralityCollection Method / VolumeCollection TimeReceived TimeUrineUrine specimen obtained by clean catch procedure / Unknown Non-blood Collection / Ayrokgz3501/14/2025 10:37 AM EDT1 10:47 AM EDT Narrative Authorizing ProviderResult TypeResult StatusGualberto Serrano [facility] URINE ORDERABLES Final ResultPerforming OrganizationAddressCity/State/ZIP CodePhone Number [facility] ([facility]) [address] [place] [address] * Creatinine, urine, random (01/14/2025 10:37 AM EDT) Only the most recent of2 resultswithin the time period is included. ComponentValueRef RangeTest MethodAnalysis TimePerformed AtPathologist Signature Creatinine, Ur112.026 - 299 mg/dL01/14/2025 11:31 AM [facility] ([facility])Specimen (Source)Anatomical Location / LateralityCollection Method / VolumeCollection TimeReceived TimeUrineUrine specimen obtained by clean catch procedure / UnknownNon-blood Collection / Lqrnxzp4101/14/2025 10:37 AM EDT 01/14/2025 10:47 AM EDT Narrative Authorizing ProviderResult TypeResult StatusGualberto Serrano [facility]CO[facility] ORDERABLES Final ResultPerforming OrganizationAddressty/State/ZIP CodePhone Number [facility] ([facility]) [address] [place] [address] * Tonya Prospera (Single) (12/27/2024 11:05 AM EDT) Only the most recent of2 resultswithin the time period is included. ComponentValueRef RangeTest MethodAnalysis TimePerformed AtPathologist Signature CURRENT TEST RESULT0.73%01/18/2025 7:12 PM EDTNATERA LABORATORYComment: Decreased risk for rejection dd-cfDNA Quantity: 48 cp/ml Ref range displayed is for Prospera Test for Kidney Transplant Increased Risk of Rejection: dd-cfDNA % >= 1% or DQS >= 78 cp/ml; Decreased Risk of Rejection: dd-cfDNA % <1% and DQS <78 cp/ml For technical details, limitations, and testing methodology please refer to the complete report viathe [facility] or contact your [employer] Nurse Coordinator at [phone] PATIENT TEST HISTORYSee Notes01/18/2025 7:12 PM EDTNATERA LABORATORYComment: Date: 01-14-2025, Value: dd-cfDNA% 0.73%, dd-cfDNA Quantity: 48 cp/ml, Total cfDNA: - Date: 01-14-2025, Value: dd-cfDNA% 0.73%, dd-cfDNA Quantity: 48 cp/ml, Total cfDNA: - Date: 12-27-2024, Value: dd-cfDNA% 0.97%, dd-cfDNA Quantity: 70 cp/ml, Total cfDNA: - Date: 12-02-2024, Value: dd-cfDNA% 0.78%, dd-cfDNA Quantity: 64 cp/ml, Total cfDNA: - Date: 10-07-2024, Value: dd-cfDNA% 3.38%, dd-cfDNA Quantity: 175 cp/ml, Total cfDNA: - Date: 09-27-2024, Value: dd-cfDNA% 8.55%, dd-cfDNA Quantity: 815 cp/ml, Total cfDNA: - Date: 09-10-2024, Value: dd-cfDNA% 1.08%, dd-cfDNA Quantity: 52 cp/ml, Total cfDNA: - Decreased risk for rejection Test performed by [facility]. : [address] [place] [address]. IA ID #[id number]: [employer] Women Specialist: Ratna Barrera, Ph.D., [facility] Specimen (Source)Anatomical Location / LateralityCollection Method / Volume Collection TimeReceived TimeBloodVenous blood specimen / UnknownVenipuncture / Adicyhv6512/27/2024 11:05 AM EDT12/27/2024 11:05 AM EDT Narrative Authorizing ProviderResult TypeResult StatusKunal Maggie [facility] ORDERABLESFinal ResultPerforming OrganizationAddressCity/State/ZIP CodePhone Number [facility] [address] [place] [address], [place] * (ABNORMAL) Manual Differential (12/15/2024 6:55 AM EDT) Only the most recent of2 resultswithin the time period is included. ComponentValueRef RangeTest MethodAnalysis TimePerformed AtPathologist Signature Atypical Lymphocytes %0.00.0 - 0.0 %12/15/2024 8:24 AM [facility] ([facility])Neutrophils Absolute2.01.6 - 7.6 10*3/uL12/15/2024 8:24 AM [facility] ([facility])Lymphocytes Absolute0.12(L)1.20 - 4.00 10*3/uL12/15/2024 8:24 AM [facility] ([facility])Monocytes Absolute0.240.10 - 1.00 10*3/uL 12/15/2024 8:24 AM [facility] ([facility])Eosinophils Absolute0.050.00 - 0.50 10*3/uL12/15/2024 8:24 AM [facility] ([facility])Basophils Absolute 0.040.00 - 0.20 10*3/uL12/15/2024 8:24 AM [facility] ([facility])Atypical Lymphs Absolute0.000.00 10*3/uL12/15/2024 8:24 AM [facility] ([facility]) FxolyrmgimlxZqbvgzjz83/15/2025 8:24 AM [facility] ([facility])Poikilocytes Thuamm3912/15/2024 8:24 AM [facility] ([facility])PolychromasiaSlight 12/15/2024 8:24 AM [facility] ([facility])Giant LBQzXhshcqy14/15/2025 8:24 AM [facility] ([facility])Neutrophils %81.6(H)40.0 - 72.0 %12/15/2024 8:24 AM [facility] ([facility])Lymphocytes %4.9(L)20.0 - 45.0 %12/15/2024 8:24 AM [facility] ([facility])Monocytes %9.85.0 - 12.0 %12/15/2024 8:24 AM [facility] ([facility])Eosinophils %1.90.0 - 6.0 %12/15/2024 8:24 AM [facility] ([facility])Basophils %1.8(H)0.0 - 1.0 %12/15/2024 8:24 AM [facility] ([facility])Plasma Cells %00 %12/15/2024 8:24 AM [facility] ([facility])Specimen (Source)Anatomical Location / LateralityCollection Method / VolumeCollection TimeReceived TimeBloodVenous blood specimen / Unknown Venipuncture / Aayekke8012/15/2024 6:55 AM EDT12/15/2024 7:09 AM EDT Narrative Authorizing ProviderResult TypeResult StatusValarie Klein [facility] BLOOD ORDERABLESFinal ResultPerforming OrganizationAddressCity/State/ZIP CodePhone Number [facility] ([place]) [address] [place] [address] * POCT rack urine (11/19/2024 1:47 PM EDT)ComponentValueRef RangeTest Method Analysis TimePerformed AtPathologist SignatureBilirubin Qbfih2kg/dLBlood, UA negativeGlucose, UANegativeLeukocytes, UANegativeNitrite, UANegativepH, UA7.0 5.0 - 8.0Protein, UATraceSpec Grav, UA1.020Urobilinogen, UA0.2Ketones, UA AutomatedNegativeLot Ybxdyj724,021Expiration Date05/30/25pecimen (Source) Anatomical Location / LateralityCollection Method / VolumeCollection Time Received Time11/19/2024 1:47 PM EDT Narrative Authorizing ProviderResult TypeResult StatusKunal Maggie MDPOINT OF CARE TEST ENTER/EDIT ORDERABLESFinal Result * (ABNORMAL) Testosterone, free and total, and SHBG (11/07/2024 7:05 AM EDT) ComponentValueRef RangeTest MethodAnalysis TimePerformed AtPathologist TkadaopvxIadwsbleawua549565 - 836 ng/dL11/07/2024 11:56 [facility] Sex Hormone Ysnnajf07(H)10 - 60 nmol/L11/07/2024 11:56 [facility] Testosterone, Ddhw596.747.0 - 244.0 pg/mL11/07/2024 11:56 AM [facility] LABComment: The concentration of free testosterone is derived from a mathematical expression based on the constant for the binding of testosterone to albumin and/or sex hormone binding globulin. ? Test Performed by [facility] [address] [place] [address] - Wrvfuifg 11/07/2024 11:56 Specimen (Source)Anatomical Location / LateralityCollection Method / Volume Collection TimeReceived TimeBloodVenous blood specimen / UnknownVenipuncture / Dzixjiy1611/07/2024 7:05 AM EDT11/07/2024 7:42 AM EDT Narrative Authorizing ProviderResult TypeResult StatusJobrandon Klein [facility] BLOOD ORDERABLESFinal ResultPerforming OrganizationAddressCity/State/ZIP CodePhone Number [facility] [address] [place] [address] * BK virus, DNA, quantitative, Q3 Months (11/07/2024 7:05 AM EDT)ComponentValue Ref RangeTest MethodAnalysis TimePerformed AtPathologist SignatureBK Virus Plasma InterpretationNot DetectedNot Ymhvzkmg75/11/2025 2:16 PM [facility] ([place])BK Virus QuantitationNot DetectedNot Detected copies/mL 11/10/2024 2:16 PM [facility] ([facility])Comment: Method: BK virus was measured by quantitative polymerase chain reaction using a fluorescent hydrolysis probe targeting the polyomavirus BK STORE MA[employer]-1 gene. The lower limit of quantitation of the assay is 500 copies of BK genome per milliliter of plasma orurine, and any detectable BK DNA below that level is reported as: Detected, <500 copies/ml. Serial BK virus measurement can be used to monitor disease activity. (Reference: Bijal garvinl. J CLIN MICRO 2004; 42:8003-4231). This test was developed and its performance characteristics determined by the [facility]. It has not been approved by the [place] Food and Drug Administration. However, such approval is not required for clinical implementation, and test results have been shown to be clinicallyuseful. This laboratory is CAP accredited and CLIA certified to perform high complexity testing. BK Virus Quant LogNot DetectedNot Detected copies/mL11/10/2024 2:16 PM [facility] ([facility])Specimen (Source)Anatomical Location / LateralityCollection Method / VolumeCollection TimeReceived TimeBloodVenous blood specimen / Unknown Venipuncture / Dwkgyyg4511/07/2024 7:05 AM EDT11/07/2024 7:43 AM EDT Narrative Authorizing ProviderResult TypeResult Statusbrandon Klein [facility] BLOOD ORDERABLESFinal ResultPerforming OrganizationAddressty/State/ZIP CodePhone Number [facility] ([facility]) [address] [place] [address] * Hemoglobin A1c (11/07/2024 7:05 AM EDT)ComponentValueRef RangeTest Method Analysis TimePerformed AtPathologist SignatureHemoglobin A1C4.84.0 - 6.0 % 11/08/2024 1:18 PM [facility] ([facility])Estimated Average Nxgadrb37 mg/dL11/08/2024 1:18 PM [facility] ([facility])Specimen (Source) Anatomical Location / LateralityCollection Method / VolumeCollection Time Received TimeBloodVenous blood specimen / UnknownVenipuncture / Unknown 11/07/2024 7:05 AM EDT11/07/2024 7:43 AM EDT Narrative Authorizing ProviderResult TypeResult Statusbrandon Klein [facility] BLOOD ORDERABLESFinal ResultPerforming OrganizationAddressty/State/ZIP CodePhone Number [facility]) [address] [place] [address] * Lipid panel (11/07/2024 7:05 AM EDT)ComponentValueRef RangeTest MethodAnalysis TimePerformed AtPathologist CzsrlfterAozgqccuxnqul327<150 mg/dL11/07/2024 8:24 AM [facility])Comment: TRIGLYCERIDE REFERENCE RANGE: 20 YEARS AND OLDER ?CARDIOVASCULAR RISK LESS THAN 150 mg/dL ? LOW RISK 150 TO 199 mg/dL ?BORDERLINE RISK 200 mg/dL AND GREATER ? HIGH RISK Nwbqsntyezg061082 - 200 mg/dL11/07/2024 8:24 AM [facility] ([facility])LDL Vnhanaidfa886 - 160 mg/dL11/07/2024 8:24 AM [facility] ([facility])TLT5136 - 92 mg/dL11/07/2024 8:24 AM [facility] ([facility])Non HDL Ycvhgpbphqx79 11/07/2024 8:24 AM [facility] ([facility])Total VLDL-C250 - 40 mg/dL 11/07/2024 8:24 AM [facility] ([facility])Cholesterol/HDL Ratio3.1mg/dL 11/07/2024 8:24 AM [facility] ([facility])Specimen (Source)Anatomical Location / LateralityCollection Method / VolumeCollection TimeReceived TimeBlood Venous blood specimen / UnknownVenipuncture / Pbtrsyo1711/07/2024 7:05 AM EDT 11/07/2024 7:42 AM EDT Narrative Authorizing ProviderResult TypeResult StatusJobrandon [facility] BLOOD ORDERABLESFinal ResultPerforming OrganizationAddressCity/State/ZIP CodePhone Number [facility] ([facility]) [address] [place] [address] * Diagnostic Colonoscopy (01/17/2023 2:12 PM EDT)Anatomical RegionLaterality ModalityEndoscopySpecimen (Source)Anatomical Location / LateralityCollection Method / VolumeCollection TimeReceived Time Narrative 01/21/2023 7:41 AM EDT Table formatting from the original result was not included. Impression Overall Impression: sigmoid diverticulitis, status post sigmoid colectomy with protective loop ileostomy Intact colorectal anastomosis without stenosis Recommendation Proceed for ileostomy reversal. Indication Diverticular disease of colon Staff Staff Role No Staff Documented Medications midazolam (PF) (Versed) injection 5 mg fentaNYL (Sublimaze) injection 200 mcg (Totals for administrations occurring from 1330 to 1411 on 01/17/23) Preprocedure A history and physical has been performed, and patient medication allergies have been reviewed. The patient's tolerance of previous anesthesia has been reviewed. The risks and benefits of the procedure and the sedation options and risks were discussed with the patient. All questions were answered and informed consent obtained. Details of the Procedure COLONOSCOPY NOTE Description of Procedure: ??Informed consent was obtained after explanation of the procedure including indications, description of the procedure, ?? benefits and possible risks and complications of the procedure, and alternatives. Questions were answered. ??The patient's history was reviewed and a directed physical examination was performed prior to the procedure. Patient was monitored throughout the procedure with pulse oximetry and periodic assessment of vital signs. Patient was sedated as noted above. With the patient in the left lateral decubitus position, a digital rectal examination was performed. The Olympus video colonoscope was placed in the patient's rectum and advanced without difficulty ??to the hepatic flexure. ?? The prep was poor. ??There are large amount solid stool in right colon. Examination of the mucosa was performed during both introduction and withdrawal of the colonoscope. Retroflexed view of the rectum was performed. ??The patient ??was taken to the recovery area in good condition. Findings: 1. Colorectal anastomosis is intact, without inflammation, stenosis. 2. No polyp was found. Recommendations: 1. Follow up with me Proceed for ileostomy reversal. [phone] pager [phone] clinic Events Procedure Events Event Event Time ENDO SCOPE IN TIME 01/17/2023 ??1:51 PM ENDO SCOPE OUT TIME 01/17/2023 ??2:09 PM Findings None Specimens No specimens collected Authorizing ProviderResult TypeResult StatusRussell Mcguire MDENDOSCOPY PROCEDURE ORDERABLESFinal Result from Last 3 Months or Most Recently Relevant to Health Maintenance Insurance MemberSubscriberPlan / Payer (Effective 2023-Present)Name:Jordi Huerta Member ID:[id number] Relation to Subscriber:SelfName:Jordi Huerta Subscriber ID:[id number] Payer ID:[id number] Group ID:Not on file Type:Medicare Address: [facility] [place] [id number] MemberSubscriberPlan / Payer (Effective 2023-Present)Name:Jordi Huerta Member ID:[id number] Relation to Subscriber:SelfName:Jordi Huerta Subscriber ID:[id number] Payer ID:[id number] Group ID:Not on file Type:Medicare Address: [facility] [place] [id number] MemberSubscriberPlan / Payer (Effective 2023-Present)Name:Jordi Huerta Member ID:[id number] Relation to Subscriber:SelfName:Jordi Huerta Subscriber ID:[id number] Payer ID:[id number] Group ID:Not on file Type:Medicare Address: [facility] [place] [id number] Advance Directives * Full Code (Latest Code Status on File) Date ActivatedDate InactivatedComments10/06/2024 4:18 PM10/10/2024 3:08 PM * Full Code Date ActivatedDate InactivatedComments05/03/2024 6:27 PM2 7:18 PM * Full Code Date ActivatedDate InactivatedComments05/03/2024 1:52 PM2 6:27 PM * Full Code Date ActivatedDate UoatxgsymuwNlgpcxqj99/27/2023 10:01 AM03/04/2023 6:41 PM * Full Code Date ActivatedDate InactivatedComments08/11/2022 6:15 AM08/24/2022 4:55 PM Care Teams Team MemberRelationshipSpecialtyStart DateEnd Date Joe Harris MD [address] PCP - General06/13/22 Milind Jaime MD [facility] [place] [address] Consulting PhysicianTransplant Surgery06/13/22 Trever Morales [facility] [place] [address] Consulting PhysicianUrology06/03/24
--- OUTSIDE RECORDS SUMMARY | 2025-02-04 18:06 | XMS_ITS | CCD ---
Author Organization [facility] Care Team Providers Care Scout Name Role Phone Hillary Mcmanus Unavailable Roshan Izaguirre Unavailable [phone] Michelle Ledesma Unavailable Leela Schraedr Unavailable Meliza Norris Unavailable Elisa Garcia Unavailable DO Joe Jauregui Primary Care Provider [phone] MD Elisa Garcia Attending Provider MD Roshan Izaguirre Attending Provider [phone] DO Joe Jauregui Primary Care Provider MD Roshan Izaguirre Attending Provider MD Elisa Garcia Attending Provider DO Joe Jauregui Primary Care Provider MD Roshan Izaguirre Attending Provider [phone] DO Joe Jauregui Primary Care Provider DO Joe Jauregui Primary Care Provider [phone] MD Roshan Izaguirre Attending Provider [phone] DO Joe Jauregui Primary Care Provider MD Roshan Izaguirre Attending Provider MD Elisa Garcia Attending Provider DO Joe Jauregui Primary Care Provider MD Roshan Izaguirre Attending Provider [phone] DO Joe Jauregui Attending Provider JOE JAUREGUI Primary Care Physician Unavail able Cali DUGGAN Attending Unavailable JOE JAUREGUI Referring Unavailable Cali DUGGAN Referring Unavailable Cali DUGGAN Attending Unavailable Cali DUGGAN Admitting Unavailable Joe Jauregui DO Primary Care Provider SANDEEP ., COREY Admitting Unavailable DR MICHELLE NORWOOD Primary Care Unavailable SANDEEP Bull, COREY Attending Unavailable SANDEEP Bull, COREY Consulting Unavailable DR JOE JAUREGUI Primary Care Unavailable SANDEEP ., COREY Admitting Unavailable SANDEEP ., COREY Attending Unavailable SANDEEP Bull, COREY Consulting Unavailable NII ABBOTT Consulting Unavailable JACOBY TRUJILLO Attending Unavailable JACOBY TRUJILLO Consulting Unavailable JACOBY TRUJILLO Admchinedu Unavailable DR HUGO GARCIAS Primary Care Unavailable DO Joe Jauregui Primary Care Provider [phone] MD Elisa Garcia Attending Provider MD Irene Menendez Admit Provider MD Redd Payton Attending Provider [phone] DO Melquiades Ayala Other Provider MD Fredy Bryant Other Provider DO Joe Jauregui Primary Care Provider SHAMEKA Huerta Emergency Provider Joe Jauregui Primary Care Unavailable Rayshawn Chahal Admitting Unavailable Rayshawn Chahal Attending Unavailable Elisa Garcia Admitting Unavailable Joe Jauregui Primary Care Unavailable Elisa Garcia Attending Unavailable Elisa Garcia Admitting Unavailable Joe Jauregui Primary Care Unavailable Elisa Garcia Attending Unavailable Elisa Garcia Admitting Unavailable Joe Jauregui Primary Care Unavailable Elisa Garcia Attending Unavailable Irene Menendez Admitting Unavailable Melquiades Ayala Consulting Unavailable Redd Payton Attending Unavailable Joe Jauregui Primary Care Unavailable Fredy Bryant Consulting Unavailable Jesse Huerta Admitting Unavailable Jesse Huerta Attending Unavailable Joe Jauregui Primary Care Unavailable Joe Jauregui Primary Care Unavailable Rasyhawn Chahal Admitting Unavailable Rayshawn Chahal Attending Unavailable Joe Jauregui DO Primary Care Provider [phone] Joe Jauregui DO Primary Care Provider Tali-Nossek FLAME CUTTER-SPA HOST, Yanira M Unavailable Tali-Nossek FLAME CUTTER-SPA HOST, Yanira M Unavailable JESSENIA BELLO Attending Unavailable JAD ARNDT Referring Unavaila JOE Campbell Primary Care Unavailable JESSENIA BELLO Attending Unavailable JESSENIA BELLO Referring Unavailable JOE JAUREGUI Primary Care Unavailable JESSENIA BELLO Referring Unavailable JOE JAUREGUI Primary Care Unavailable Joe Jauregui DO Primary Care Provider [phone] Rayshawn Shabazz MD Primary Care Provider [phone] YANIRA BEAVERS Attending Unavailab YANIRA Collins Attending Unavailab GREGORY Jeff Attending Unavailable YANIRA BEAVERS Attending Unavailab le Joe Jauregui DO Primary Care Provider Tali-Nossek FLAME CUTTER-SPA HOST, Yanira M Unavailable Shreya Washington LPN Unavailable [phone] [facility] Marjorie STRONG Unavailable YOHANNES PALMA Referring Unavailable CECY, SUDHEER Referring Unavailable LEANN VILLEGAS Attending Unavailable CECY, SUDHEER Referring Unavailable CECY, SUDHEER Referring Unavailable MINERVAKASH ADAMESYN Referring Unavailable CECY, SUDHEER Referring Unavailable CHET JANE Referring Unavailable CECY, SUDHEER Referring Unavailable MINERVA YOHANNES Referring Unavailable CECY, SUDHEER Referring Unavailable CECY, SUDHEER Attending Unavailable BHUPINDER PALACIOS Attending Unavailable YOHANNES PALMA Referring Unavailable CECY, SUDHEER Attending Unavailable CECY, SUDHEER Attending Unavailable BERNARD ISABEL Attending Unavailable CECY, SUDHEER Referring Unavailable CECY, SUDHEER Attending Unavailable CECY, SUDHEER Admitting Unavailable CECY, SUDHEER Referring Unavailable CECY, SUDHEER Attending Unavailable CECY, SUDHEER Admitting Unavailable STEENHOFF, ERI Attending Unavailable CECY, SUDHEER Referring Unavailable CECY, SUDHEER Referring Unavailable CECY, SUDHEER Attending Unavailable CECY, SUDHEER Attending Unavailable CECY, SUDHEER Attending Unavailable ZACK LEZAMA Attending Unavailabl e MINERVA, YOHANNES Referring Unavailable STEENHOFF, ERI Referring Unavailable CECY, SUDHEER Attending Unavailable TERRANCE SANON Attending Unavailable CECY, SUDHEER Referring Unavailable CECY, SUDHEER Attending Unavailable LEANN BARCENAS Referring Unavailable MINERVA, YOHANNES Referring Unavailable CECY, SUDHEER Referring Unavailable MINERVA, YOHANNES Referring Unavailable MINERVA, YOHANNES Referring Unavailable Allergies Allergy ClassificationReported Allergen(s)Allergy TypeDate of OnsetReaction(s) Facility (20 sources)Amoxicillin; Translations: [amoxicillin]Drug [id number] (finding), Nausea And Vomiting, Nausea Only, Nausea/vomiting, Unknown[facility] ([facility] sources)Escitalopram; Translations: [escitalopram]Drug Jgagvpk25-13-5974 Unknown (qualifier value), Nausea Only, UnknownExec[facility] (1 source)AmoxicillinDrug Dwrjbyi83-98-2850[facility] (1 source)AmoxicillinDrug Hcptxxw05-82-9021TohpadxigUniversity [facility]als [facility] Rep[facility] Medications Current Medications MedicationDrug Class(es)DatesSig (Normalized)Sig (Original)acetaminophen 500 mg oral tablet (1 source)take 1 tablet by mouth every six hours as needed for painacetaminophen (TYLENOL) 500 mg tablet Take 500 mg by mouth every 6 (six) hours as needed for pain. Activeacetaminophen 325 mg / oxyCODONE hydrochloride 5 mg oral tablet (6 sources)Opioid AgonistStart: 05-07-2024 End: 04-84-8209bcrz 1 tablet by mouth every six hours as neededoxyCODONE- acetaminophen (Percocet) 5-325 MG tablet Take 1 tablet by mouth every 6 (six) hours if needed 05/07/2024 01/06/2025 Discontinuedallopurinol 100 mg oral tablet (20 sources)Xanthine Oxidase InhibitorStart: 08-30-2022 End: 54-55-1108rlug 1 tablet by mouth three times weeklyallopurinol (Zyloprim) 100 MG tablet Take 100 mg by mouth 3 (three) times a week 05/26/2023 01/06/2025 DiscontinuedStart: 96-16-4372gvgp 100 mg by mouth twice dailyAllopurinol Active 100 MG PO Twice daily January 08, 2022 11:00pmStart: 11-04-2013 End: 52-41-7764rtpn 1 tablet by mouth once dailyAllopurinol 100 mg Tablet Discontinued 100 MG PO Daily January 09, 2022 12:00am July 14, 2024 2:36pm take 1 tablet by mouth once dailyallopurinol (ZYLOPRIM) 300 mg tablet Take 300 mg by mouth daily. Activetake 1 tablet by mouth twice dailyAllopurinol 200 MG 1 tablet Orally twice daily for 90 days ActiveaMILoride hydrochloride 5 mg oral tablet (7 sources)Potassium-sparing DiureticStart: 06-11-2024 End: 09-43-0817gxwj 1 tablet by mouth in the morningaMILoride (Midamor) 5 MG tablet Take 5 mg by mouth in the morning. 06/11/2024 06/11/2025 ActiveamLODIPine 10 mg oral tablet (20 sources)Dihydropyridine Calcium Channel BlockerStart: 88-79-6000teyg 1 tablet by mouth once dailyamLODIPine (Norvasc) 10 MG tablet Indications: Primary hypertension Take 1 tablet (10 mg) by mouth Daily 90 tablet 3 11/12/2023 Active atovaquone 150 mg/ml oral suspension (2 sources)Antimalarial, AntiprotozoalStart: 65-96-3003dnmp 1500 mg by mouth in the morningatovaquone (Mepron) 750 MG/5ML suspension Take 1,500 mg by mouth in the morning. 11/19/2024 ActiveazaTHIOprine 50 mg oral tablet (7 sources)Purine AntimetaboliteStart: 71-25-6928Qwsnkgadrkhy 50 mg tablet Active MG PO July 14, 2024 12:00amStart: 06-11-2024 End: 01-40-8360zpxHXGYsmafd (Imuran) 50 MG tablet Take 125 mg by mouth in the morning. 06/11/2024 01/06/2025 Discontinuedazithromycin 250 mg oral tablet (4 sources)Macrolide AntimicrobialStart: 56-34-9133barufeqczdwz (Zithromax) 250 mg tablet take 2 tablets by mouth today then take 1 tablet daily for 4days 09/06/2023 ActiveStart: 09-06-2023 End: 39-16-4761Afjrctibiexg 250 mg tablet Discontinued 0 PO .COMPLEX 6 September 06, 2023 12:00am July 14, 2024 2:30pm For 250 mg dose pack: take 500 mg today (day 1), then 250 mg for 4 days (days 2-5) PO24 hr buPROPion hydrochloride 150 mg extended release oral tablet (18 sources)AminoketoneStart: 60-13-8267gzTLBXacb XL (WELLBUTRIN XL) 150 mg 24 hr tablet 03/30/2020 ActiveStart: 03-25-2020 End: 84-41-7445dkad 1 tablet by mouth once dailyBupropion Hcl 150 mg tablet extended release 24 hr Discontinued 150 MG PO Daily March 25, 20201:00am October 06, 2021 7:35amcalcitriol 0.0005 mg oral capsule (20 sources)Vitamin D3 AnalogStart: 42-80-6664kiornkfzif 0.5 mcg oral capsule Refills(s) 0 Start Date: 06/15/22 Status: OrderedStart: 48-93-1645ufzeipbuov (Rocaltrol) 0.5 mcg capsule Take by mouth once daily. 04/26/2022 ActiveStart: 10-06-2021 End: 92-40-4708hbmq 2 capsules by mouth once dailyCalcitriol 0.25 mcg capsule Discontinued 0.5 MCG PO Daily October 06, 2021 12:00am July 14, 2024 2:36pm Start: 62-05-9178vrbn 0.5 ug by mouth once dailyCalcitriol Active 0.5 MCG PO Daily October 06, 2021 12:00amStart: 90-08-6689umwa 0.25 ug by mouth three times weeklyCalcitriol Active 0.25 MCG PO 3 Times a week October 05, 2021 11:00pmStart: 76-32-0299ggvg 1 capsule by mouth three times weeklyCalcitriol 0.25 MCG 1 capsule Orally Three times a Week for 30 day(s) July, Activeciprofloxacin 500 mg oral tablet (20 sources)Quinolone AntimicrobialStart: 36-34-6801svletubacgxbh (Cipro) 500 mg tablet Take by mouth. 06/16/2022 ActiveStart: 60-58-8755dgwg 1 tablet by mouth every twelve hoursCipro 500 MG 1 tablet Orally every 12 hrs for 10 day(s) Mar, ActiveStart: 03-25-2020 End: 71-54-9327gzjy 1 tablet by mouth once dailyCiprofloxacin Hcl 500 mg tablet Discontinued 500 MG PO Daily March 25, 2020 1:00am October 06, 2021 7:36am Start: 06-08-6028kziy 1 tablet by mouth every twelve hoursciprofloxacin HCl (CIPRO) 500 mg tablet Take 500 mg by mouth every 12 (twelve) hours. 03/15/2020 Activeclotrimazole 10 mg oral lozenge (6 sources)Azole AntifungalStart: 05-05-2024 End: 54-61-9277eeqrnkyunylo (Mycelex) 10 MG mery Take 10 mg by mouth in the morning and 10 mg at noon and 10 mg in the evening and 10 mg before bedtime. 05/05/2024 01/06/2025 DiscontinuedhydrALAZINE hydrochloride 50 mg oral tablet (7 sources)Arteriolar VasodilatorStart: 05-28-2024 End: 28-25-4977uuoa 1 tablet by mouth once dailyhydrALAZINE (Apresoline) 50 MG tablet Take 50 mg by mouth Daily 05/28/2024 01/06/2025 Discontinued hydroCHLOROthiazide 25 mg / valsartan 320 mg oral tablet (20 sources)Thiazide Diuretic, Angiotensin 2 Receptor BlockerStart: 11-29-2022 End: 00-00-5646asji 1 tablet by mouth in the morningvalsartan- hydroCHLOROthiazide (Diovan-HCT) 320-25 MG tablet Indications: Benign essential hypertension Take 1 tablet by mouth in the morning. 90 tablet 3 11/29/2022 01/06/2025 DiscontinuedStart: 33-50-8942avtz 1 tablet by mouth once daily valsartan-hydrochlorothiazide (Diovan-HCT) 320-25 mg tablet Take 1 tablet by mouth once daily. 11/29/2022 ActiveStart: 59-17-0699mnaijmdyxmrgrzrdgrw- valsartan 25 mg-320 mg oral tablet Refill(s) 0 Start Date: 06/16/22 Status: Order edStart: 11-04-2013 End: 23-64-9808tumx 1 tablet by mouth once daily in the morningValsartan- Hydrochlorothiazide 320-25 mg tablet Discontinued 1 TAB PO Every morning March 25, 2020 1:00am August 10, 2022 1:31pmmagnesium gluconate 500 mg oral tablet (2 sources) End: 31-40-6311wwvd 1 tablet by mouth in the morningmagnesium, as gluconate, (Magonate) 500 (27 Mg) MG tablet Take 200 mg by mouth in the morning and 200 mg before bedtime. 01/06/2025 Discontinuedmagnesium glycinate 100 mg oral tablet (2 sources)Start: 09-71-9662ciyr 2 tablets by mouth in the morningMagnesium Bisglycinate (Mag Glycinate) 100 MG tablet Take 200 mg by mouth in the morning and 200 mgin the evening. 11/19/2024 Activemagnesium oxide 400 mg oral tablet (7 sources)Start: 38-95-3554Zcbuaxjtl Oxide 400 mg (241.3 mg magnesium) tablet Active MG PO July 14, 2024 12:00amStart: 06-11-2024 End: 55-38-8690xnofqxgxu oxide (Mag-Ox) 400 MG tablet Take 400 mg by mouth in the morning and 400 mg at noon and 400 mg in the evening. 06/11/2024 01/06/2025 DiscontinuedmetroNIDAZOLE 500 mg oral tablet (20 sources)Nitroimidazole AntimicrobialStart: 03-25-2020 End: 66-78-1612matc 1 tablet by mouth once dailyMetronidazole 500 mg tablet Discontinued 500 MG PO Daily March 25, 2020 1:00am October 06, 2021 7:36am Start: 72-55-4013trif 1 tablet by mouth every twelve hoursmetroNIDAZOLE 500 MG 1 tablet Orally bid for 10 day(s) Mar, ActiveMycophenolate Sodium 180 mg tablet,delayed release (DR/EC) (1 source)Start: 80-87-2511tscp 1 mg by mouth twice dailyMycophenolate Sodium 180 mg tablet,delayed release (DR/EC) Active MG PO Twice daily July 14, 2024 12:00ammycophenolic acid 180 mg delayed release oral tablet (4 sources)Antimetabolite ImmunosuppressantStart: 29-52-0373tflh 2 tablets by mouth in the morningmycophenolate (Myfortic) 180 MG EC tablet Take 360 mg by mouth in the morning and 360 mg in the evening. 10/22/2024 Activenystatin 000242 unt/ml oral suspension (6 sources)Polyene AntifungalStart: 05-09-2024 End: 97-40-5012hwupiaht (Mycostatin) 849054 UNIT/ML suspension Take 500,000 Units by mouth in the morning and 500,000 Units at noon and 500,000 Units in the evening and 500,000 Units before bedtime. 05/09/2024 01/06/2025 Discontinued ondansetron 4 mg disintegrating oral tablet (12 sources)Serotonin-3 Receptor AntagonistStart: 11-70-7546bxju 1 tablet by mouth every eight hours as neededondansetron ODT (Zofran-ODT) 4 MG disintegrating tablet Take 4 mg by mouth every 8 (eight) hours ifneeded 06/13/2024 ActiveStart: 09-15-2022 End: 14-66-6187jxnu 1 tablet by mouth four times daily as needed for nausea and vomitingOndansetron 4 mg tablet,disintegrating Discontinued 4 MG PO Four times daily as needed for nausea and vomiting September 15, 2022 12:00am July 14, 2024 2:30pmoxyCODONE hydrochloride 5 mg oral tablet (6 sources)Opioid AgonistStart: 09-39-6163chut 1 tablet by mouth every six hours oxyCODONE HCl 5 MG 1 tablet as needed Orally every 6 hrs for 5 days Dec, Activepantoprazole 40 mg delayed release oral tablet (20 sources)Proton Pump InhibitorStart: 13-72-2574tglr 1 tablet by mouth before mealtimepantoprazole (ProtoNix) 40 MG EC tablet Take 40 mg by mouth in the morning. Take before meals. 03/13/2022 ActivePotassimin 75 MG (20 sources)take 1 tablet by mouth once dailyPotassimin 75 MG 1 tablet Orally Once a day Activemicroencapsulated potassium chloride 20 meq extended release oral tablet (20 sources)Start: 55-98-1954Uqiadutky Chloride 20 mEq tablet,ER particles/crystals Active 20 MEQ PO July 14, 2024 12:00amStart: 11-04-2013 End: 37-04-1150eakt 1 capsule by mouth once dailyPotassium Chloride 10 mEq capsule, extended release Discontinued 10 MEQ PO Daily March 25, 2020 1:00am August 10, 2022 1:31pmpotassium chloride CR (Klor-Con M10) 10 MEQ ER tablet Take 10 mEq by mouth in the morning. Activepotassium phosphate 155 mg / sodium phosphate, dibasic 852 mg / sodium phosphate, monobasic 130 mg oral tablet (3 sources)Start: 42-14-5017Mlr Phos Di, Wallace-K Phos Wallace (David-Phos 250 Neutral) 250 mg tablet Active TAB PO July 14, 2024 12:00ampredniSONE 10 mg oral tablet (12 sources)Start: 94-05-4206hflt 1 tablet by mouth once dailypredniSONE (Deltasone) 10 MG tablet Take 10 mg by mouth Daily 06/11/2024 ActiveStart: 08-08-2022 End: 38-12-5569wfdt 1 tablet by mouth once daily as neededPrednisone 50 mg tablet Discontinued 50 MG PO Daily as needed for Pain August 08, 2022 12:00am August 10, 2022 1:31pm take one tab daily as needed for goutStart: 06-11-2021 predniSONE 20 MG 3 tablets with breakfast times 3 days then 2 tablets with breakfast times 3 days then 1 tablet for 3 Orally Once a day for 9 days May, Activesertraline 100 mg oral tablet (20 sources)Serotonin Reuptake InhibitorStart: 10-16-2023 End: 18-30-2439gkqe 1.5 tablets by mouth once dailysertraline (Zoloft) 100 MG tablet Indications: Moderate episode of recurrent major depressive disorder (HCC) Take 1.5 tablets (150 mg) by mouth Daily 45 tablet 2 11/11/2024 02/09/2025 ActiveStart: 34-32-0699rlxhcefjcx (Zoloft) 100 mg tablet Take by mouth once daily. 03/22/2023 ActiveStart: 11-23-1177pqme 1 tablet by mouth once daily in the morningSertraline 50 mg tablet Active 50 MG PO Every morning October 06, 2021 12:00amsevelamer carbonate 800 mg oral tablet (20 sources)Phosphate BinderStart: 08-07-2022 End: 87-38-6281twvzopgkx carbonate (Renvela) 800 MG tablet Take 800 mg by mouth in the morning and 800 mg at noon and 800 mg in the evening. Take with meals. 11/08/2023 01/06/2025 Discontinuedsodium bicarbonate 650 mg oral tablet (20 sources)Start: 86-83-0513cfbh 1 tablet by mouth in the morning, then take 1 tablet by mouth in the evening, then take 1 tablet by mouth at bedtimesodium bicarbonate 650 MG tablet Take 650 mg by mouth in the morning and 650 mg in the evening and 650 mg before bedtime. Patient reported . 06/16/2024 ActiveStart: 12-28-2021 End: 67-35-3746vpvw 1 tablet by mouth twice dailySodium Bicarbonate 650 mg Tablet Discontinued 650 MG PO Twice daily January 09, 2022 12:00am August 10, 2022 1:31pmSulfamethoxazole / Trimethoprim (7 sources)Dihydrofolate Reductase Inhibitor Antibacterial, Sulfonamide AntimicrobialStart: 50-52-2300Hxqetfqjpgxqejnv-Trimethoprim 800-160 mg tablet Active 1 TAB PO July 14, 2024 12:00amStart: 57-51-9785lokp 1 tablet by mouth three times weeklysulfamethoxazole-trimethoprim (Bactrim DS) 800-160 MG per tablet Take 1 tablet by mouth 3 (three) times a week 05/09/2024 Iuaafz76 hr tacrolimus 1 mg extended release oral tablet (13 sources)Calcineurin Inhibitor ImmunosuppressantStart: 15-82-3606ryel 1 tablet by mouth once daily, then take 1 mg by mouth every twenty-four hours Tacrolimus (Envarsus Xr) 1 mg tablet extended release 24 hr Active 2 MG PO daily July 14, 2024 12:00amStart: 11-30-8426zuljvcleru ER (Envarsus XR) 0.75 MG tablet ER Take 1.5 mg by mouth in the morning. 06/03/2024 ActiveStart: 69-74-5518yijpvoakon ER (Envarsus XR) 1 MG tablet ER Take 3 mg by mouth in the morning. 06/03/2024 ActivetraZODone hydrochloride 50 mg oral tablet (17 sources)Serotonin Reuptake InhibitorStart: 08-01-2023 End: 98-25-5419delJMYwus (Desyrel) 50 MG tablet Indications: Insomnia, unspecified type Take 2 tablets (100 mg) bymouth at bedtime Take 1-2 tablets prn for insomnia. 60 tablet 2 02/14/2024 01/06/2025 DiscontinuedvalGANciclovir 450 mg oral tablet (7 sources)Start: 13-20-2920jfeu 1 tablet by mouth in the morningvalGANciclovir (Valcyte) 450 MG tablet Take 450 mg by mouth in the morning. 05/09/2024 Active Completed/Discontinued Medications MedicationDrug Class(es)DatesSig (Normalized)Sig (Original)cinacalcet 30 mg oral tablet (20 sources)Calcium-sensing Receptor AgonistStart: 12-28-2021 End: 30-32-8230krhf 1 tablet by mouth once dailyCinacalcet (Sensipar) 30 mg Tablet Discontinued 30 MG PO Daily January 09, 2022 12:00am July 14, 2024 2:36pm End: 64-27-6425qupr 1 tablet by mouth three times weeklycinacalcet (Sensipar) 30 MG tablet take 1 tablet by mouth 3 TIMES WEEKLY after DIALYSIS Sunday AND Sunday01/06/2025 Discontinuedfluticasone propionate 0.05 mg/actuat metered dose nasal spray (1 source)CorticosteroidStart: 09-06-2023 End: 43-98-3725ojgf 1 spray(s) nasal route once dailyFluticasone Propionate 50 mcg/actuation spray,suspension Discontinued 1 SPRAY INTRANASAL Daily September 06, 2023 12:00am July 14, 2024 2:37pm administer into each nostrilfurosemide 40 mg oral tablet (20 sources)Loop DiureticStart: 08-09-2021 End: 51-53-6187dfgx 1 tablet by mouth twice dailyFurosemide 40 mg tablet Discontinued 40 MG PO Twice daily October 06, 2021 12:00am July 14, 2024 2:37pm gadoterate meglumine (Dotarem) 0.5 mmol/mL contrast injection 19.5 mL (1 source)Start: 03-31-2024 End: 93-79-175188.5 mL (rounded from 19.6 mL = 0.2 mL/kg 98 kg Order-specific weight), intravenous, Once in imaging, Starting on Sun03/31/24 at 1035, For 1 dose, Administer undiluted as rapid I.V. bolus injectionmetoprolol tartrate 25 mg oral tablet (20 sources)beta-Adrenergic BlockerStart: 03-25-2020 End: 70-55-6117aoco 1 tablet by mouth once daily at bedtimeMetoprolol Tartrate 25 mg tablet Discontinued 25 MG PO Daily at bedtime March 25, 2020 1:00am A pril 2024 2:37pm End: 05-07-0014qyls 1 tablet by mouth every twenty-four hours in the morning metoprolol succinate XL (Toprol-XL) 50 MG 24 hr tablet Take 50 mg by mouth in the morning. 01/06/2025 Discontinuedtake 1 tablet by mouth once dailymetoprolol succinate XL (TOPROL-XL) 50 mg 24 hr tablet Take 50 mg by mouth daily. Active pramipexole dihydrochloride 0.25 mg oral tablet (4 sources)Nonergot Dopamine AgonistStart: 08-07-2022 End: 88-80-8545impx 1 tablet by mouth once daily at bedtimePramipexole 0.25 mg tablet Discontinued 0.25 MG PO Daily at bedtime August 07, 2022 12:00am July 2:37pmpromethazine hydrochloride 25 mg oral tablet (3 sources)PhenothiazineStart: 09-15-2022 End: 23-72-8635wshy 1 tablet by mouth four times daily as needed for nausea and vomitingPromethazine 25 mg tablet Discontinued 25 MG PO Four times daily as needed for nausea and vomiting September 15, 2022 12:00am July 14, 2024 2:30pmvalsartan 320 mg oral tablet (4 sources)Angiotensin 2 Receptor BlockerStart: 08-10-2022 End: 37-07-7407odqq 1 tablet by mouth once dailyValsartan 320 mg tablet Discontinued 320 MG PO Daily 90 90 August 10, 2022 12:00am July 14, 2024 2 :37pm Problems Active Problems Problem ClassificationProblemDateDocumented DateEpisodic/ChronicAnxiety disorders (20 sources)Anxiety; Translations: [Anxiety disorder, unspecified]Onset: 12-30-2007 Resolved: [id number] kidney disease (20 sources)Chronic kidney disease stage 4; Translations: [Chronic kidney disease, stage 4 (severe)]Onset: 07-05-2015 Resolved: 45-47-4781YsgmvgiYtlabxegflta of device; implant or graft (8 sources)Other specified complication of vascular prosthetic devices, implants and grafts, initial encounter; Translations: [End stage renal failure with renal transplant ]Onset: 11-23-2021 Resolved: 75-07-9462FvomwraSwkotxhlypkb of device; implant or graft (1 source)Other mechanical complication of surgically created arteriovenous fistula, initial encounterEpisodicDiseases of white blood cells (2 sources)Other drug-induced agranulocytosis; Translations: [Other drug-induced agranulocytosis]Onset: 46-49-9816SbsftvnQtdeyzvtj of lipid metabolism (20 sources)Pure hypercholesterolemia; Translations: [Pure hypercholesterolemia, unspecified]Onset: 430048-06-8755QtjsdeiMbsxzzjivyaoxz and diverticulitis (20 sources)Diverticulitis; Translations: [Diverticulitis of intestine, part unspecified, without perforation or abscess without bleeding]Onset: 03-16-2020 Resolved: 185709-31-2652FrdyhhjOeroenlfco disorders (20 sources)Rhodes's esophagus; Translations: [Rhodes's esophagus without dysplasia]Onset: 388308-75-3755OtfgjpjTzrdxrdvm hypertension (20 sources)Benign essential hypertension; Translations: [Essential (primary) hypertension]Onset: 03-28-2022 Resolved: 752580-67-6703QggiegiRdppt and electrolyte disorders (5 sources)Acidosis; Translations: [Hypokalemia]Onset: 42-49-4550Gcgobbru Gastrointestinal hemorrhage (20 sources)Hematochezia; Translations: [Melena]EpisodicGenitourinary congenital anomalies (20 sources)Autosomal dominant polycystic kidney disease in childhood; Translations: [Polycystic kidney, adult type]Onset: 10-29-2014 Resolved: 37-76-5237PcrctzfEuvy and other crystal arthropathies (20 sources)Gouty arthritis of right ankle; Translations: [Gout, unspecified] Onset: 04-11-2017 Resolved: 82-02-7398EvnjimoXgxkzlbvlktp with complications and secondary hypertension (20 sources)Chronic kidney disease due to hypertension; Translations: [Hypertensive chronic kidney disease withstage 1 through stage 4 chronic kidney disease, or unspecified chronic kidney disease]Onset: 07-18-2018 Resolved: 47-68-5667FlfdyopCbzughzc disorders (7 sources)Immunosuppression; Translations: [Immunodeficiency, unspecified] Onset: 390434-84-0396ViskitqFvct disorders (20 sources)Recurrent major depression in partial remission; Translations: [Major depressive disorder, recurrent, in partial remission]Onset: 02-28-2021 77-15-5480YqnmidqOlpqphoyhzz deficiencies (20 sources)Vitamin D deficiency; Translations: [Vitamin D deficiency, unspecified]Onset: 091142-12-4948DvxlwslEfxemcmrojytss (18 sources)Osteoarthritis of hip; Translations: [Osteoarthritis of hip, unspecified]Onset: 385519-44-1266DwvwwblXbztj aftercare (2 sources)Encounter for aftercare following other organ transplant; Translations: [Encounter for aftercare following other organ transplant]Onset: 28-35-6436KjzvaedTtjri aftercare (2 sources)Encounter for aftercare following kidney transplant; Translations: [Encounter for aftercare following kidney transplant]Onset: 81-69-4763Bsjxtzc Other bone disease and musculoskeletal deformities (20 sources)Avascular necrosis of bone of hip; Translations: [Idiopathic aseptic necrosis of right femur]Onset: 264473-43-5823UjmydcvYozog circulatory disease (18 sources)Acquired arteriovenous fistula aneurysm; Translations: [Arteriovenous fistula, acquired]ChronicOther circulatory disease (2 sources)Arteriovenous fistula, acquiredChronicOther connective tissue disease (13 sources)History of repair of hip joint; Translations: [Presence of right artificial hip joint]Onset: 158450-20-0532XdkkjtwBzknw connective tissue disease (5 sources)H/O: gout; Translations: [Personal history of other diseases of the musculoskeletal system and connective tissue]Onset: 348119-69-1884Twlfhjgz Other diseases of kidney and ureters (20 sources)Hyperparathyroidism due to renal insufficiency; Translations: [Secondary hyperparathyroidism of renal origin]Onset: ChronicOther diseases of kidney and ureters (8 sources)Secondary hyperparathyroidism of renal origin; Translations: [Secondary hyperparathyroidism (of renal origin)]Onset: 03-08-2021 Resolved: 57-08-7340XymttpyTkjss diseases of kidney and ureters (9 sources)Secondary hyperparathyroidism; Translations: [Secondary hyperparathyroidism of renal origin]Onset: 386120-69-9296OdqinbwQozip gastrointestinal disorders (20 sources)Loose stool; Translations: [Other fecal abnormalities]EpisodicOther liver diseases (2 sources)Alkaline phosphatase raised; Translations: [Abnormal levels of other serum enzymes]71-93-9013NhkfakjdCbkrl nutritional; endocrine; and metabolic disorders (20 sources)Obese class II; Translations: [Body mass index (BMI) 35.0-35.9, adult]ChronicOther nutritional; endocrine; and metabolic disorders (20 sources)Obese class I; Translations: [Body mass index (BMI) 34.0-34.9, adult]ChronicOther nutritional; endocrine; and metabolic disorders (5 sources)Body mass index (BMI) 34.0-34.9, adultOnset: 03-08-2021 Resolved: 59-31-2396ZahvuznQchjb nutritional; endocrine; and metabolic disorders (2 sources)Body mass index 30+ - gpihveu77-93-9285HtaowhwCqhyb nutritional; endocrine; and metabolic disorders (15 sources)Morbid obesity; Translations: [Morbid (severe) obesity due to excess calories]Onset: 417327-71-0543BczmifqYppkx nutritional; endocrine; and metabolic disorders (2 sources)Frdtrax93-30-4922HtacxlcEzjjn nutritional; endocrine; and metabolic disorders (4 sources)Hypomagnesemia; Translations: [Hypomagnesemia]Onset: 05-29-2024 37-00-6703QfqxuooQarfv nutritional; endocrine; and metabolic disorders (3 sources)Hypophosphatemia; Translations: [Other disorders of phosphorus metabolism]Onset: 882616-56-6148YpgzlapFjoft nutritional; endocrine; and metabolic disorders (2 sources)Other disorders of phosphorus metabolism; Translations: [Other disorders of phosphorus metabolism]Onset: 39-36-6424PahkoglSzyro nutritional; endocrine; and metabolic disorders (1 source)Hypomagnesemia; Translations: [Hypomagnesemia]Onset: 81-67-7240Kmqievp Other skin disorders (2 sources)Swelling / lump mvwuomt29-27-0808TrsusjjkIzvnbba on above:left hand dorsal massOther upper respiratory disease (20 sources)Vocal cord paralysis; Translations: [Paralysis of vocal cords and larynx, unilateral]Onset: 365665-82-0393LgdcrwoZxaqq upper respiratory disease (4 sources)Paralysis of vocal cords and larynx, unilateral; Translations: [Paralysis of vocal cords and larynx, unilateral]Onset: 02-95-9555WzdtiqbTehts upper respiratory disease (3 sources)Dysphonia; Translations: [Dysphonia]Onset: 584971-91-0901 EpisodicOther upper respiratory disease (1 source)Disorder of vocal cord; Translations: [Other diseases of vocal cords] 22-19-6440LdgxzsmiBkdto upper respiratory disease (1 source)Dysphonia; Translations: [Dysphonia]Onset: 53-66-8620VcxfaoydCzkpl upper respiratory disease (2 sources)Other diseases of vocal cords; Translations: [Other diseases of vocal cords]Onset: 93-96-2353AzgofqhnYwpwm upper respiratory infections (13 sources)Sinusitis; Translations: [Chronic sinusitis, unspecified]Onset: 338630-22-6918DcajrvsRltns upper respiratory infections (1 source)Acute sinusitis; Translations: [Acute sinusitis, unspecified] 68-17-5811WoaoumxrDmjblgwn codes; unclassified (20 sources)Obstructive sleep apnea syndrome; Translations: [Obstructive sleep apnea (adult) (pediatric)]Onset: 890822-07-8033HbcgzusUkeyuagu codes; unclassified (15 sources)Sleep apnea; Translations: [Sleep apnea, unspecified]Onset: 178823-71-2684EezisvhVfaiajb on above:has a cpapResidual codes; unclassified (2 sources)Insomnia; Translations: [Insomnia, unspecified]89-58-8029Jyhzdanm Spondylosis; intervertebral disc disorders; other back problems (18 sources)Arthritis of spine; Translations: [Spondylosis without myelopathy or radiculopathy, lumbosacral region]Onset: hronic Unclassified (2 sources)Asymptomatic microscopic uafpvnuyb26-01-6135Amvgqdiericg (1 source)Pain in right knee; Translations: [Pain in right knee]Onset: 92-10-3686Kzsovyprtrlr (1 source)Acidosis, unspecified; Translations: [Acidosis, unspecified]Onset: 06-60-1580Dgnacnahtnyy (2 sources)Kidney Follow-up; Translations: [Kidney Follow-up]Onset: 05-14-2024 Viral infection (20 sources)Herpes simplex type 1 infection; Translations: [Herpesviral infection, unspecified]Onset: 06-05-2016 Resolved: 113922-87-5140Aopwqrox Past or Other Problems Problem ClassificationProblemDateDocumented DateEpisodic/ChronicAbdominal pain (20 sources)Abdominal pain; Translations: [Unspecified abdominal pain]Onset: 03-87-2926SqcpbpmxPceph and unspecified renal failure (2 sources)Acute kidney failure, unspecified; Translations: [Acute kidney failure, unspecified]Onset: 89-12-0025NsohicboLtrhplhknwwznv/social admission (2 sources)Other specified counseling; Translations: [Other specified counseling]Onset: 19-98-9783KhusztozWcfgofa dysrhythmias (2 sources)Bradycardia, unspecified; Translations: [Bradycardia, unspecified] Onset: 86-48-2910TqoputdvGksncamz mellitus without complication (20 sources)Impaired fasting glycemia; Translations: [Impaired fasting glucose] Onset: 388016-46-3504LbwrsvmcBkbmmnxmcqmov symptoms and ill-defined conditions (20 sources)Microscopic hematuria; Translations: [Asymptomatic microscopic hematuria]Onset: 06-16-2022 Resolved: 42-49-8684OeajndxwZZO infection (2 sources)Inconclusive laboratory evidence of human immunodeficiency virus [HIV]; Translations: [Inconclusivelaboratory evidence of human immunodeficiency virus (HIV)]Onset: 95-03-5383BqjalotpOpobpvfvypgvb and screening for infectious disease (20 sources)Rheumatoid factor positive; Translations: [Other specified abnormal immunological findings in serum]Onset: 782813-97-5319PtcrvlkuMirh disorders (6 sources)Mood disordersOnset: Nausea and vomiting (18 sources)Nausea and vomiting; Translations: [Nausea with vomiting, unspecified]Onset: 934432-39-4341HpiwmfhcUaudx aftercare (3 sources)Other mcc (current) drug therapy; Translations: [OTH SUPERVISOR HISTOLOGY CURRENT DRUG THERAPY]Onset: 64-34-6693MvhjdrepJyufk bone disease and musculoskeletal deformities (16 sources)Avascular necrosis of bone; Translations: [Idiopathic aseptic necrosis of unspecified bone]Onset: 05-31-2018 Resolved: 736278-57-9998DnihwrkZqlld gastrointestinal disorders (16 sources)Colostomy present; Translations: [Colostomy status]Onset: 10-12-2022 Resolved: 862164-34-3459UdruycgWayig gastrointestinal disorders (15 sources)Diarrhea; Translations: [Diarrhea, unspecified]Onset: 11-20-2023 13-56-6573MjvxrokyVozso nervous system disorders (16 sources)Difficulty walking; Translations: [Difficulty in walking, not elsewhere classified]Onset: 09-15-2018 Resolved: 901908-38-3266OjyizljUloyq nervous system disorders (2 sources)Other acute postprocedural pain; Translations: [Other acute postprocedural pain]Onset: 20-13-7718JucotfvpJkemt non-traumatic joint disorders (3 sources)Pain in right ankle and joints of right foot; Translations: [PAIN IN RIGHT ANKLE]Onset: 37-20-3451DnldfccvGetdu non-traumatic joint disorders (3 sources)Pain in left ankle and joints of left foot; Translations: [PAIN IN LEFT ANKLE]Onset: 43-37-8697JlthooquNffsc non-traumatic joint disorders (10 sources)Hip pain; Translations: [Pain in right hip]Onset: 09-11-2018 Resolved: 864096-86-0973YmmmfnojSavpz non-traumatic joint disorders (6 sources)Pain in right hip joint; Translations: [Pain in right hip]Onset: 09-11-2018 Resolved: 834170-96-7466WlvzractNxjck nutritional; endocrine; and metabolic disorders (15 sources)Hyperuricemia; Translations: [Hyperuricemia without signs of inflammatory arthritis and tophaceous disease]Onset: EpisodicOther screening for suspected conditions (not mental disorders or infectious disease) (4 sources)Encounter for screening for diseases of the blood and blood-forming organs and certain disorders involving the immune mechanism; Translations: [Encounter for screening for malignant neoplasm of othergenitourinary organs] Onset: 71-70-8190LdyvhywuFthzi upper respiratory disease (14 sources)Hoarse; Translations: [Dysphonia]Onset: 722003-72-8803Biwuivws Residual codes; unclassified (18 sources)Chews tobacco ; Translations: [Tobacco use]Onset: 08-18-2022 08-99-1650TnlyrwwgFuhchbwv codes; unclassified (13 sources)History of closure of colostomy; Translations: [Other specified postprocedural states]Onset: 973409-84-6367MpzjqvtmTdpyczfq codes; unclassified (12 sources)History of closure of ileostomy; Translations: [Other specified postprocedural states]Onset: 503393-30-4545DhczryioNmhztfmm codes; unclassified (2 sources)Pain, unspecified; Translations: [Pain, unspecified]Onset: 10-06-2024 EpisodicResidual codes; unclassified (2 sources)Other specified personal risk factors, not elsewhere classified; Translations: [Other specified personal risk factors, not elsewhere classified] Onset: 03-82-1906PnwvpmhqNurksuatt and history of mental health and substance abuse codes (13 sources)Personal history of nicotine dependence; Translations: [Tobacco use and exposure - finding]Onset: 877925-50-8836XzvpqjbuGjrukwmvg-qshbooq disorders (17 sources)Nicotine dependence, chewing tobacco, uncomplicated; Translations: [Tobacco dependence syndrome]Onset: 05-26-2015 Resolved: 490449-86-3032MetwpzuOactqjskdkfv (3 sources)Onset: 058328-49-1112Uhqbuhgerifp (1 source)Acidosis, unspecified; Translations: [Acidosis, unspecified]Onset: 05-16-2024 Results Test NameValueInterpretationReference RangeFacilityOrders Onlyon 01-26-2025 Orders OnlyNormalUniUC HealthINGLE ANTIGEN CLASS Ion 73-50-2633ZBVOO I SPECIFICITY JUSTEN:3NoRegency Hospital [facility] Comment on above:Performed By: #### [id number] ####[facility] TISSUE TYPING (HISTOTRAC)[address] [place] [address] USACLASS I TESTED DATE [id number] County HospitalComment on above: Performed By: #### [id number] ####[facility] TISSUE TYPING (HISTOTRAC)[address] [place] [address] USASINGLE ANTIGEN CLASS 1 TEST METHODClass I Single Antigen [facility] HospitalComment on above:Performed By: #### [id number] ####[facility] TISSUE TYPING (HISTOTRAC)[address] [place] [address] [facility] SINGLE ANTIGEN CLASS IIon 56-93-5104ZLIFO II SPECIFICITY ABDR:15 DQ:6 DQA:01 [facility] HospitalComment on above:Performed By: #### [id number] ####[facility] TISSUE TYPING (HISTOTRAC)[address] [place] [address] [place] CLASS II TESTED [id number] County Hospital Comment on above:Performed By: #### [id number] ####[facility] TISSUE TYPING (HISTOTRAC)[address] [place] [address] USASIGNED BYSigned by Terrance Figueroa CHT([facility]) [facility] Upper Cutter Transplant ImmunologyNormCincinnati Shriners HospitalComment on above:Performed By: #### [id number] ####[facility] TISSUE TYPING (HISTOTRAC)[address] [place] [address] USAResult Comment: Class I Antigen MicrobeadsPerformed By: #### [id number] ####[facility] TISSUE TYPING (HISTOTRAC)[address] [place] [address] USASINGLE ANTIGEN CLASS 2 TEST METHODClass II Single AntigenNormalUniSt. Vincent HospitalComment on above:Result Comment: Class II Antigen MicrobeadsPerformed By: #### [id number] ####[facility] TISSUE TYPING (HISTOTRAC)[address] [place] [address] USABASIC METABOLIC PANELon 32-09-3767Gxept gap [Moles/Vol]9 mmol/LNormal7-20UnUniversity Hospitals Beachwood Medical CenterComment on above:Performed By: #### [id number] ####[facility] LAB (BEAKER)[address] [place], [place] [address]Wkxvnff [Mass/Vol]9.1 mg/dLNormal 8.6-10.3UnUniversity Hospitals Beachwood Medical CenterComment on above:Performed By: #### [id number] ####[facility] LAB (BEAKER)[address] [place], [place] [address]Gytozjzk [Moles/Vol]110 mmol/GVanr69-939NodasyfpksUniversity Hospitals Beachwood Medical CenterComment on above:Performed By: #### [id number] ####[facility] LAB (BEAKER)[address] [place], [place] [address]IX1 [Moles/Vol]19 mmol/ENwl47-35HjpxmzlyksUniversity Hospitals Beachwood Medical CenterComment on above:Performed By: #### [id number] ####[facility] LAB (BEAKER)[address] [place], [place] [address]Romnedaauh [Mass/Vol]1.50 mg/dLHigh 0.70-1.30UnUniversity Hospitals Beachwood Medical CenterComment on above:Performed By: #### [id number] ####[facility] HOSPITAL LAB (BEAKER)[address] [place], [place] [address]IQKLYJICYW FILTRATION RATE ML/MIN/1.73 SQ M.QVCSMETNY77.4 mL/min/1.73m*2Low>60.0UnUniversity Hospitals Beachwood Medical CenterComment on above:Result Comment: [facility]???s estimated glomerular filtration rate (eGFR) will no [...] potential consequences that do not disproportionately affect anyone group of individuals. Performed By: #### [id number] ####[facility] LAB ([facility])[address] [place], [place] [address]Yyubtyp [Mass/Vol]89 mg/bKQtpjuu76-721VdnvglzecoUniversity Hospitals Beachwood Medical CenterComment on above:Performed By: #### [id number] ####[facility] LAB ([facility])[address] [place], [place] [address]Ketxnonyx [Moles/Vol]3.7 mmol/LNormal 3.5-5.1UnUniversity Hospitals Beachwood Medical CenterComment on above:Performed By: #### [id number] ####[facility] LAB ([facility])[address] [place], [place] [address]Edqtks [Moles/Vol]134 mmol/DRiy387-449BjvqbkrmmrUniversity Hospitals Beachwood Medical CenterComment on above:Performed By: #### [id number] ####[facility] LAB (BEAKER)[address] [place], [place] [address]Yqdo nitrogen [Mass/Vol]23 mg/dLNormal7-25UnUniversity Hospitals Beachwood Medical CenterComment on above:Performed By: #### [id number] ####[facility] LAB ([facility]NER)[address] [place], [place] [address]GAJQ NITROGEN/CREATININE (MASS RATIO) IN SER/PLAS15.3NormalUniversPremier Health Atrium Medical CenterComment on above: Performed By: #### [id number] ####[facility] LAB ([facility])[address] [place], [place] [address]TTSBNCK, IONIZEDon 03-52-9662KCAZOHI IONIZED (MMOL/L) IN BLOOD1.26 mmol/LNormal1.15-1.33UnUniversity Hospitals Beachwood Medical CenterComment on above: Performed By: #### [id number] ####[facility] RESPIRATORY [id number] [place] [address] USAFIBRINOGENon 68-28-0473Abivxuluj [Mass/Vol]207 mg/rTRwemiy542-646 [facility] CenterComment on above:Performed By: #### [id number] ####[facility] LAB (BEAKER)[address] [place], [place] [address]MMCJV METABOLIC PANELon 62-75-7983Uafhh gap [Moles/Vol]11 mmol/LNormal7-20UnUniversity Hospitals Beachwood Medical CenterComment on above:Performed By: #### [id number] ####[facility] LAB (BEAKER)[address] [place], [place] [address]Eggevvl [Mass/Vol]8.8 mg/dLNormal 8.6-10.3UnUniversity Hospitals Beachwood Medical CenterComment on above:Performed By: #### [id number] ####[facility] LAB (BEAKER)[address] [place], [place] [address]Clmtwyfj [Moles/Vol]112 mmol/NKgoo19-583AqgfqllbcjUniversity Hospitals Beachwood Medical CenterComment on above:Performed By: #### [id number] ####[facility] LAB (BEAKER)[address] [place], [place] [address]IV3 [Moles/Vol]18 mmol/IUcx84-12UtzbajtsrfUniversity Hospitals Beachwood Medical CenterComment on above:Performed By: #### [id number] ####[facility] LAB (BEAKER)[address] [place], [place] [address]Oomnecmexd [Mass/Vol]1.76 mg/dLHigh 0.70-1.30UnUniversity Hospitals Beachwood Medical CenterComment on above:Performed By: #### [id number] ####[facility] LAB (BEAKER)[address] [place], [place] [address]EOISGSUCLJ FILTRATION RATE ML/MIN/1.73 SQ M.RFSIRQIXP87.4 mL/min/1.73m*2Low>60.0UnUniversity Hospitals Beachwood Medical CenterComment on above:Result Comment: [facility]???s estimated glomerular filtration rate (eGFR) will no [...] potential consequences that do not disproportionately affect anyone group of individuals. Performed By: #### [id number] ####[facility] LAB ([facility])[address] [place], [place] [address]Ufuofwc [Mass/Vol]107 mg/xOKsvx47-503JiraupihzyUniversity Hospitals Beachwood Medical CenterComment on above:Performed By: #### [id number] ####[facility] LAB ([facility])[address] [place], [place] [address]Zlcbrjjpv [Moles/Vol]4.1 mmol/LNormal 3.5-5.1UnUniversity Hospitals Beachwood Medical CenterComment on above:Performed By: #### [id number] ####[facility] LAB ([facility])[address] [place], [place] [address]Wbwjde [Moles/Vol]137 mmol/QSpzkmo083-044MoripcdkfuUniversity Hospitals Beachwood Medical CenterComment on above:Performed By: #### [id number] ####[facility] LAB ([facility])[address] [place], [place] [address]Geeb nitrogen [Mass/Vol]24 mg/dLNormal7-25UnUniversity Hospitals Beachwood Medical CenterComment on above:Performed By: #### [id number] ####[facility] LAB ([facility])[address] [place], [place] [address]DTMN NITROGEN/CREATININE (MASS RATIO) IN SER/PLAS13.6NormalUniversPremier Health Atrium Medical CenterComment on above: Performed By: #### [id number] ####[facility] LAB ([facility])[address] [place], [place] [address]QKPLGCI, IONIZEDon 59-57-7634BTLKAFB IONIZED (MMOL/L) IN BLOOD1.23 mmol/LNormal1.15-1.33UnUniversity Hospitals Beachwood Medical CenterComment on above: Performed By: #### [id number] ####[facility] RESPIRATORY [id number] [place] [address] USACBC WITH AUTO DIFFERENTIALon 61-60-5961Udkxjgnnq (Bld) [#/Vol]0.03 10*3/uLNormal0.00-0.20UnUniversity Hospitals Beachwood Medical CenterComment on above: Performed By: #### [id number] ####[facility] LAB (BEAKER)[address] [address]Badffmlrr/100 WBC (Bld)0.6 %Normal0.0-1.0UnUniversity Hospitals Beachwood Medical CenterComment on above:Performed By: #### [id number] ####[facility] LAB (BEAKER)[address] [place] [address]Emfadsjpank (Bld) [#/Vol]0.06 10*3/uL Normal0.00-0.50UnUniversity Hospitals Beachwood Medical CenterComment on above:Performed By: #### [id number] ####[facility] LAB (BEAKER)[address] [place] [address] Eosinophils/100 WBC (Bld)1.3 %Normal0.0-6.0UnUniversity Hospitals [facility] Center Comment on above:Performed By: #### [id number] ####[facility] LAB (BEAKER)[address] [place] [address]Tzlyghpbxyj distribution width (RBC) [Ratio]14.6 % Owighs15.5-15.0UnUniversity Hospitals Beachwood Medical CenterComment on above:Performed By: #### [id number] ####[facility] LAB (BEAKER)[address] [place] [address] ERYTHROCYTE MEAN CORPUSCULAR HEMOGLOBIN CONCENTRATION (G/DL) BY OOQFJIKQH24.5 g/xOLizmxh09.0-35.0UnUniversity Hospitals Beachwood Medical CenterComment on above:Performed By: #### [id number] ####[facility] LAB ([facility])[address] [facility] [address]Hzewltvagb (Bld) [Volume fraction]34.9 %Low39.0-50.0UnUniversity Hospitals Beachwood Medical CenterComment on above:Performed By: #### [id number] ####[facility] LAB ([facility])[address] [place], [place] [address]Vzfyimylyh (Bld) [Mass/Vol]11.7 g/dL Low13.0-17.0UnUniversity Hospitals Beachwood Medical CenterComment on above:Performed By: #### [id number] ####[facility] LAB ([facility])[address] [place] [address] Immature granulocytes (Bld) [#/Vol]0.07 10*3/uLNormal0.00-0.20UnUniversity Hospitals Beach[facility] Medical CenterComment on above:Performed By: #### [id number] ####[facility] LAB ([facility])[address] [place], [place] [address]Gxcgmvda granulocytes/100 WBC (Bld)1.5 %High0.0-1.0UnUniversity Hospitals Beachwood Medical CenterComment on above: Performed By: #### [id number] ####[facility] LAB ([facility])[address] [place], [place] [address]Njauizgzduj (Bld) [#/Vol]0.04 10*3/uLLow1.20-4.00UnUniversity Hospitals Beach[facility] Medical CenterComment on above:Performed By: #### [id number] ####[facility] LAB ([facility])[address] [place], [place] [address]Cqgltaucumq/100 WBC (Bld) 0.8 %Low20.0-45.0UnUniversity Hospitals Beachwood Medical CenterComment on above:Performed By: #### [id number] ####[facility] LAB ([facility])[address] [place], [place] [address]MDN (RBC) [Entitic mass]32.9 mqNxoyqw98.0-33.0UnUniversity Hospitals Beach[facility] Medical CenterComment on above:Performed By: #### [id number] ####[facility] LAB ([facility])[address] [facility] [place] [address]PXA (RBC) [Entitic vol]98.0 fLNormal 82.0-98.0UnUniversity Hospitals Beach[facility] Medical CenterComment on above:Performed By: #### [id number] ####[facility] LAB ([facility])[address] [facility] [place] [address] Monocytes (Bld) [#/Vol]0.19 10*3/uLNormal0.10-1.00UnUniversity Hospitals Beach[facility] Medical CenterComment on above:Performed By: #### [id number] ####[facility] LAB ([facility])[address] [facility] [place], [place] [address]Wkpdvkgzu/100 WBC (Bld)4.0 %Low 5.0-12.0UnUniversity Hospitals Beachwood Medical CenterComment on above:Performed By: #### [id number] ####[facility] LAB ([facility])[address] [place] [facility] [place] [address] Neutrophils (Bld) [#/Vol]4.35 10*3/uLNormal1.60-7.60UnUniversity Hospitals Beachwood Medical CenterComment on above:Performed By: #### [id number] ####[facility] ([facility])[address] [place] [address]Nxzikjzsgye/100 WBC (Bld)91.8 %High 40.0-72.0UnUniversity Hospitals Beachwood Medical CenterComment on above:Performed By: #### [id number] ####[facility] ([facility])[address] MEDICAL C[place]ERK[place], [place] [address]BKYS (PER 100 WBCS) BY AUTOMATED COUNT0.0 %Ejwphm9DebijnwginUniversity Hospitals Beachwood Medical Center Comment on above:Performed By: #### [id number] ####[facility] ([facility])[address] [facility], [place] [address]JUDCMSXOT (10*3/UL) IN BLOOD AUTOMATED [id number] 10*3/cJLmqieg085-320HwdveybyypUniversity Hospitals Beachwood Medical CenterComment on above: Performed By: #### [id number] ####[facility] ([facility])[address] [place] [address]AOP (Bld) [#/Vol]3.56 10*6/uLLow4.20-5.70UnUniversity Hospitals Beachwood Medical CenterComment on above:Performed By: #### [id number] ####[facility] ([facility])[address] [place] [address]ZZU (Bld) [#/Vol]4.74 10*3/uLNormal 4.00-10.60UnUniversity Hospitals Beachwood Medical CenterComment on above:Performed By: #### [id number] ####[facility] ([facility])[address] [place] [address] FIBRINOGENon 70-78-4731Sfyfbtwgw [Mass/Vol]177 mg/yDHpjxum648-678KppdkgajeiUniversity Hospitals Beachwood Medical CenterComment on above:Performed By: #### [id number] ####[facility] ([facility])[address] [place] [place] [address]Tvfpol Onlyon 10-17-2024 Orders OnlyNormalUniversity Protestant HospitalCBC WITH AUTO DIFFERENTIALon 08-43-9876Hbvlamfzf (Bld) [#/Vol]0.02 10*3/uLNormal0.00-0.20UnUniversity Hospitals Beachwood Medical CenterComment on above:Performed By: #### [id number] ####[facility] ([facility])[address] [place] [address]Uvvzijieh/100 WBC (Bld) 0.3 %Normal0.0-1.0UnUniversity Hospitals Beachwood Medical CenterComment on above:Performed By: #### [id number] ####[facility] ([facility])[address] [place] [address]Aolojmchgbo (Bld) [#/Vol]0.01 10*3/uLNormal0.00-0.50UnUniversity Hospitals Beachwood Medical CenterComment on above:Performed By: #### [id number] ####[facility] ([facility])[address] [place] [address]Jyiwhjbqxcm/100 WBC (Bld)0.1 %Normal 0.0-6.0UnUniversity Hospitals Beachwood Medical CenterComment on above:Performed By: #### [id number] ####[facility] ([facility])[address] [place] [address] Erythrocyte distribution width (RBC) [Ratio]14.5 %Cmrhop89.5-15.0UnUniversity Hospitals Beachwood Medical CenterComment on above:Performed By: #### [id number] ####[facility] ([facility])[address] [place], [place] [address]UWJSCJLMXMC MEAN CORPUSCULAR HEMOGLOBIN CONCENTRATION (G/DL) BY WFDNGWYRC10.1 g/eLTaurxy41.0-35.0 [facility] Medical CenterComment on above:Performed By: #### [id number] ####[facility] ([facility])[address] [place] [address]Yfopecdczu (Bld) [Volume fraction]36.2 %Low39.0-50.0UnUniversity Hospitals Beachwood Medical CenterComment on above:Performed By: #### [id number] ####[facility] ([facility])[address] [place], [place] [address]Kiunwuwmgj (Bld) [Mass/Vol]12.0 g/dLLow13.0-17.0UnUniversity Hospitals Beachwood Medical CenterComment on above:Performed By: #### [id number] ####[facility] ([facility])[address] [place], [place] [address]Gfmritwe granulocytes (Bld) [#/Vol]0.11 10*3/uLNormal0.00-0.20UnUniversity [facility]als [facility] Center Comment on above:Performed By: #### [id number] ####[facility] ([facility])[address] [place], [place] [address]Yluuuayw granulocytes/100 WBC (Bld)1.4 %High0.0-1.0 [facility]ma Medical CenterComment on above:Performed By: #### [id number] ####[facility] ([facility])[address] [place] [address]Zhrjvscpefx (Bld) [#/Vol]0.06 10*3/uLLow1.20-4.00UnUniversity Hospitals Beachwood Medical CenterComment on above:Performed By: #### [id number] ####[facility] ([facility])[address] [place] [address]Cfcpqzmitno/100 WBC (Bld)0.8 %Low20.0-45.0UnUniversity Hospitals Beachwood Medical CenterComment on above:Performed By: #### [id number] ####[facility] ([facility])[address] [place] [place] [address]KUJ (RBC) [Entitic mass] 32.9 utPwxwyq24.0-33.0UnUniversity Hospitals Beachwood Medical CenterComment on above: Performed By: #### [id number] ####[facility] ([facility])[address] [place] [place] [address]FAH (RBC) [Entitic vol]99.2 fCSscf43.0-98.0UnUniversity Hospitals Beachwood Medical CenterComment on above:Performed By: #### [id number] ####[facility] ([facility])[address] [place] [place] [address]Dishypkwi (Bld) [#/Vol] 0.23 10*3/uLNormal0.10-1.00UnUniversity Hospitals Beachwood Medical CenterComment on above: Performed By: #### [id number] ####[facility] ([facility])[address] [place] [address]Kilxcqbet/100 WBC (Bld)2.9 %Low5.0-12.0UnUniversity Hospitals Beachwood Medical CenterComment on above:Performed By: #### [id number] ####[facility] ([facility])[address] [place] [address]Lfnqiezyzfs (Bld) [#/Vol]7.39 10*3/uL Normal1.60-7.60UnUniversity Hospitals Beachwood Medical CenterComment on above:Performed By: #### [id number] ####[facility] ([facility])[address] [place] [address] Neutrophils/100 WBC (Bld)94.5 %High40.0-72.0UnUniversity [facility]als [facility] Center Comment on above:Performed By: #### [id number] ####[facility] ([facility])[address] [place] [place] [address]SIDM (PER 100 WBCS) BY AUTOMATED COUNT0.0 %Normal0 [facility] Medical CenterComment on above:Performed By: #### [id number] ####[facility] ([facility])[address] [place] [address]YHLKQTVVX (10*3/UL) IN BLOOD AUTOMATED [id number] 10*3/kJWoshxo863-329FvvwhrfepoUniversity Hospitals Beachwood Medical CenterComment on above:Performed By: #### [id number] ####[facility] ([facility])[address] [place] [address]DLO (Bld) [#/Vol]3.65 10*6/uLLow 4.20-5.70UnUniversity Hospitals Beachwood Medical CenterComment on above:Performed By: #### [id number] ####[facility] ([facility])[address] [place], [place] [address]APA (Bld) [#/Vol]7.82 10*3/uLNormal4.00-10.60UnUniversity [facility] Center Comment on above:Performed By: #### [id number] ####[facility] ([facility])[address] [place], [place] [address]HAWQTVDWKASID METABOLIC PANELon 90-67-4224Ozkgbqi [Mass/Vol]4.2 g/dLNormal3.5-5.7UnUniversity Hospitals Beachwood Medical CenterComment on above:Performed By: #### [id number] ####[facility] ([facility])[address], [place] [address]BYR [Catalytic activity/Vol]52 U/WExzsqm93-397EjsnipyhrzUniversity Hospitals Beachwood Medical CenterComment on above:Performed By: #### [id number] ####[facility] ([facility])[address] [place], [place] [address]QHW [Catalytic activity/Vol]8 U/L Normal7-52UnUniversity Hospitals Beachwood Medical CenterComment on above:Performed By: #### [id number] ####[facility] ([facility])[address] [place], [place] [address]Ivnvn gap [Moles/Vol]11 mmol/LNormal7-20UnUniversity Hospitals Beachwood Medical CenterComment on above:Performed By: #### [id number] ####[facility] ([facility])[address] [place], [place] [address]YVX [Catalytic activity/Vol]16 U/GToaudd37-83WdplionnbjUniversity Hospitals Beachwood Medical CenterComment on above:Performed By: #### [id number] ####[facility] ([facility])[address] [place], [place] [address]Yyfttazdd [Mass/Vol]0.8 mg/dL Normal0.3-1.0UnUniversity Hospitals Beachwood Medical CenterComment on above:Performed By: #### [id number] ####[facility] ([facility])[address] [place] [address] Calcium [Mass/Vol]9.1 mg/dLNormal8.6-10.3UnUniversity [facility]als [facility] Center Comment on above:Performed By: #### [id number] ####[facility] ([facility])[address], [place] [address]Frctuldz [Moles/Vol]113 mmol/GArka62-835MdyxiwvozpUniversity Hospitals Beachwood Medical CenterComment on above:Performed By: #### [id number] ####[facility] ([facility])[address], [place] [address]YF0 [Moles/Vol]17 mmol/L Cnb33-66HybiuhcrquUniversity Hospitals Beachwood Medical CenterComment on above:Performed By: #### [id number] ####[facility] ([facility])[address] [place], [place] [address]Iriraxvvyx [Mass/Vol]1.82 mg/dLHigh0.70-1.30UnUniversity Hospitals Beachwood Medical CenterComment on above:Performed By: #### [id number] ####[facility] ([facility])[address] [place] [address]EQWRBXLGOC FILTRATION RATE ML/MIN/1.73 SQ M.ILKXGVDVW28.5 mL/min/1.73m*2Low>60.0UnUniversity Hospitals Beachwood Medical CenterComment on above:Result Comment: The [facility]???s estimated glomerular filtration rate (eGFR) will no [...] potential consequences that do not disproportionately affect anyone group of individuals.Performed By: #### [id number] ####[facility] ([facility])[address] [place] [address]Stxfwpr [Mass/Vol]118 mg/iOMbxg47-979SmyswrcjbrUniversity Hospitals Beachwood Medical CenterComment on above:Performed By: #### [id number] ####[facility] ([facility])[address] [place] [address]Uyfowqkky [Moles/Vol]4.9 mmol/L Normal3.5-5.1UnUniversity Hospitals Beachwood Medical CenterComment on above:Performed By: #### [id number] ####[facility] ([facility])[address] [place] [address] Protein [Mass/Vol]5.8 g/dLLow6.0-8.3UnUniversity Hospitals Beachwood Medical CenterComment on above:Performed By: #### [id number] ####[facility] ([facility])[address], [place] [address]Wzpskc [Moles/Vol]136 mmol/UYbehxj800-545KsvckofbfrUniversity Hospitals Beachwood Medical CenterComment on above:Performed By: #### [id number] ####[facility] ([facility])[address], [place] [address]Nfbn nitrogen [Mass/Vol]23 mg/dLNormal 7-25UnUniversity Hospitals Beachwood Medical CenterComment on above:Performed By: #### [id number] ####[facility] ([facility])[address] [place], [place] [address]WEQA NITROGEN/CREATININE (MASS RATIO) IN SER/PLAS12.6NormalUniSt. Vincent HospitalComment on above:Performed By: #### [id number] ####[facility] ([facility])[address] [place], [place] [address]MD ABDOMEN PELVIS WO IV CONTRASTon 10-59-7244LY ABDOMEN PELVIS WO IV CONTRASTNormalUniversity El Campo Memorial HospitalPROVon 78-39-1167QRYRRPJabgzmLyrtcqokph of [place]edo Medical CenterLIPASEon 35-80-09[address]FIHWOM (U/L) IN SER/PLAS16 U/ESsiqdt31-09RipzprhcqlUniversity Hospitals Beachwood Medical CenterComment on above:Performed By: #### [id number] ####[facility] ([facility])[address] [place], [place] [address]IKCUWDWDYM LEVELon 10-16-2024 Tacrolimus (Bld) [Mass/Vol]3.6 ng/mLLow5.0-20.0UnUniversity Hospitals Beachwood Medical CenterComment on above:Result Comment: The [employer] Tacrolimus assay is a delayed one-step immunoassay for the quantitative determination of tacrolimus in human whole blood using the chemiluminescent microparticle immunoassay (CMIA) technology with flexible assay protocols, referred to as Chemiflex.Performed By: #### [id number] ####[facility] ([facility])[address] [place] [address] URINALYSIS WITH REFLEX CULTUREon 26-73-5822DPOFNDSNF, TOTAL PRESENCE IN URINE NegativeNormalNegativeUnUniversity Hospitals Beachwood Medical CenterComment on above:Order Comment: Microscopics not performed on urines with negative chemical reactions unless requested on original order.Performed By: #### [id number] ####[facility] ([facility])[address] [place], [place] [address]Eggqrpw (U)ClearNormalClear [facility] Medical CenterComment on above:Order Comment: Microscopics not performed on urines with negative chemical reactions unless requested on original order.Performed By: #### [id number] ####[facility] ([facility])[address] [place], [place] [address]Huavi (U)Light-YellowNormalColorless, Yellow, Light-YellowUnUniversity Hospitals Beachwood Medical CenterComment on above:Order Comment: Microscopics not performed on urines with negative chemical reactions unless requested on original order.Performed By: #### [id number] ####[facility] ([facility])[address] [place], [place] [address]ALIUGCP (MG/DL) IN URINENormalNormal NormalUnUniversity Hospitals Beachwood Medical CenterComment on above:Order Comment: Microscopics not performed on urines with negative chemical reactions unless requested on original order.Performed By: #### [id number] ####[facility] ([facility])[address] [place], [place] [address]GSIKBPABCR PRESENCE IN URINENegative NormalNegativeUnUniversity Hospitals Beachwood Medical CenterComment on above:Order Comment: Microscopics not performed on urines with negative chemical reactions unless requested on original order.Performed By: #### [id number] ####[facility] ([facility])[address] [place], [place] [address]Sqmwpge Ql (U)NegativeNormalNegative [facility] Medical CenterComment on above:Order Comment: Microscopics not performed on urines with negative chemical reactions unless requested on original order.Performed By: #### [id number] ####[facility] ([facility])[address] [place], [place] [address]CLSTZTTFL ESTERASE PRESENCE IN URINE BY TEST STRIP NegativeNormalNegativeUniversity Hospitals Parma Medical CenterComment on above:Order Comment: Microscopics not performed on urines with negative chemical reactions unless requested on original order.Performed By: #### [id number] ####[facility] ([facility])[address], [place] [address]PHOJNEL PRESENCE IN URINENegative NormalNegativeUniversity Hospitals Parma Medical CenterComment on above:Order Comment: Microscopics not performed on urines with negative chemical reactions unless requested on original order.Performed By: #### [id number] ####[facility] ([facility])[address] [place] [address]oR (U)6.0 [pH]Normal5.0-8.0UnUniversity Hospitals Beachwood Medical CenterComment on above:Order Comment: Microscopics not performed on urines with negative chemical reactions unless requested on original order.Performed By: #### [id number] ####[facility] ([facility])[address] [place] [address]Vftrauv (U) [Mass/Vol]NegativeNormalNegative [facility] Medical CenterComment on above:Order Comment: Microscopics not performed on urines with negative chemical reactions unless requested on original order.Performed By: #### [id number] ####[facility] ([facility])[address] [place] [place] [address]Czgrmvjx gravity (U) [Rel density]1.018Normal 1.010-1.030UnUniversity Hospitals Beachwood Medical CenterComment on above:Order Comment: Microscopics not performed on urines with negative chemical reactions unless requested on original order.Performed By: #### [id number] ####[facility] ([facility])[address], [place] [address]BNXBWGAVZIUY (MG/DL) IN URINENormal NormalNormalUniversPremier Health Atrium Medical CenterComment on above:Order Comment: Microscopics not performed on urines with negative chemical reactions unless requested on original order.Performed By: #### [id number] ####[facility] ([facility])[address], [place] [address]NLDJH METABOLIC PANELon 10-15-2024 Anion gap [Moles/Vol]8 mmol/LNormal7-20Un[facility] Comment on above:Performed By: #### [id number] ####[facility] ([facility])[address] [place], [place] [address]Tgaljfb [Mass/Vol]8.5 mg/dLLow8.6-10.3UnUniversity Hospitals Beachwood Medical CenterComment on above:Performed By: #### [id number] ####[facility] ([facility])[address] [place], [place] [address]Sddspmte [Moles/Vol]115 mmol/HMcom40-585JruypqbltmUniversity Hospitals Beachwood Medical CenterComment on above:Performed By: #### [id number] ####[facility] ([facility])[address] [place] [address] CO2 [Moles/Vol]18 mmol/WIdm33-29QdxouzedejUniversity Hospitals Beachwood Medical CenterComment on above:Performed By: #### [id number] ####[facility] ([facility])[address] [place], [place] [address]Mfcgyacley [Mass/Vol]1.89 mg/dLHigh0.70-1.30UnUniversity Hospitals Beachwood Medical CenterComment on above:Performed By: #### [id number] ####[facility] ([facility])[address] [place] [place] [address]KSHDARZVOX FILTRATION RATE ML/MIN/1.73 SQ M.SXTAPQULN86.5 mL/min/1.73m*2Low>60.0UnUniversity Hospitals Beachwood Medical CenterComment on above:Result Comment: The [facility]???s estimated glomerular filtration rate (eGFR) will no [...] potential consequences that do not disproportionately affect anyone group of individuals.Performed By: #### [id number] ####[facility] ([facility])[address] [facility] [place] [address]Wjkvjfw [Mass/Vol]108 mg/xXPxbz44-304XruhbnzexvUniversity Hospitals Beachwood Medical CenterComment on above:Performed By: #### [id number] ####[facility] ([facility])[address] [facility] [place] [address]Ikmnqihml [Moles/Vol]4.0 mmol/LNormal3.5-5.1UnUniversity Hospitals Beachwood Medical CenterComment on above:Performed By: #### [id number] ####[facility] ([facility])[address] [place], [place] [address]Kypguo [Moles/Vol]137 mmol/L Johscv289-686StxgqrwoelUniversity Hospitals Beachwood Medical CenterComment on above:Performed By: #### [id number] ####[facility] ([facility])[address] [place], [place] [address]Vejy nitrogen [Mass/Vol]24 mg/dLNormal7-25UnUniversity Hospitals Beachwood Medical CenterComment on above:Performed By: #### [id number] ####[facility] ([facility])[address] [place] [place], [place] [address]QITG NITROGEN/CREATININE (MASS RATIO) IN SER/PLAS12.7Normal [facility] CenterComment on above:Performed By: #### [id number] ####[facility] ([facility])[address] [place], [place] [address]BFPJELE, IONIZED on 59-57-77[address]ERXHLQU IONIZED (MMOL/L) IN BLOOD1.24 mmol/LNormal1.15-1.33 [facility] CenterComment on above:Performed By: #### [id number] ####[facility] RESPIRATORY [id number] [place] [address] USACBC WITH AUTO DIFFERENTIALon 02-03-4185Vaeqzquxi (Bld) [#/Vol]0.03 10*3/uLNormal0.00-0.20 [facility] CenterComment on above:Performed By: #### [id number] ####[facility] ([facility])[address] [place], [place] [address]Bqsoytvbv/100 WBC (Bld)0.6 %Normal0.0-1.0UnUniversity Hospitals Beachwood Medical CenterComment on above: Performed By: #### [id number] ####[facility] ([facility])[address] [place], [place] [address]Nckduxfmjir (Bld) [#/Vol]0.17 10*3/uLNormal0.00-0.50 [facility] CenterComment on above:Performed By: #### [id number] ####[facility] ([facility])[address] [place], [place] [address]Kgbzifbnilf/100 WBC (Bld)3.5 %Normal0.0-6.0UnUniversity Hospitals Beachwood Medical CenterComment on above: Performed By: #### [id number] ####[facility] ([facility])[address] [place], [place] [address]Kftczyhphtc distribution width (RBC) [Ratio]14.2 %Normal 11.5-15.0UnUniversity Hospitals Beachwood Medical CenterComment on above:Performed By: #### [id number] ####[facility] ([facility])[address] [place] [address] ERYTHROCYTE MEAN CORPUSCULAR HEMOGLOBIN CONCENTRATION (G/DL) BY VYCIYEKRD72.8 g/qQIufvih68.0-35.0UnUniversity Hospitals Beachwood Medical CenterComment on above:Performed By: #### [id number] ####[facility] ([facility])[address] [place], [place] [address]Xluystuvdd (Bld) [Volume fraction]33.1 %Low39.0-50.0UnUniversity Hospitals Beachwood Medical CenterComment on above:Performed By: #### [id number] ####[facility] ([facility])[address] [place], [place] [address]Abuiongbjs (Bld) [Mass/Vol]11.2 g/dL Low13.0-17.0UnUniversity Hospitals Beachwood Medical CenterComment on above:Performed By: #### [id number] ####[facility] ([facility])[address] [place] [address] Immature granulocytes (Bld) [#/Vol]0.14 10*3/uLNormal0.00-0.20UnUniversity Hospitals [facility] Medical CenterComment on above:Performed By: #### [id number] ####[facility] ([facility])[address] [place], [place] [address]Lzqdqdcj granulocytes/100 WBC (Bld)2.9 %High0.0-1.0UnUniversity Hospitals Beachwood Medical CenterComment on above: Performed By: #### [id number] ####[facility] ([facility])[address] [place], [place] [address]Oexewyohhlv (Bld) [#/Vol]0.06 10*3/uLLow1.20-4.00UnUniversity Hospitals [facility] Medical CenterComment on above:Performed By: #### [id number] ####[facility] ([facility])[address] [place] [place], [place] [address]Vnqzgiokuiy/100 WBC (Bld) 1.2 %Low20.0-45.0UnUniversity Hospitals Beachwood Medical CenterComment on above:Performed By: #### [id number] ####[facility] ([facility])[address] [place], [place] [address]WHH (RBC) [Entitic mass]32.6 bzKolzpr15.0-33.0UnUniversity Hospitals [facility] Medical CenterComment on above:Performed By: #### [id number] ####[facility] ([facility])[address] [facility] [place] [address]YQM (RBC) [Entitic vol]96.2 fLNormal 82.0-98.0UnUniversity Hospitals Beachwood Medical CenterComment on above:Performed By: #### [id number] ####[facility] ([facility])[address] [place] [address] Monocytes (Bld) [#/Vol]0.31 10*3/uLNormal0.10-1.00UnUniversity [facility]als [facility] Medical CenterComment on above:Performed By: #### [id number] ####[facility] ([facility])[address] [facility], [place] [address]Zfajibhmn/100 WBC (Bld)6.4 %Normal 5.0-12.0UnUniversity Hospitals Beachwood Medical CenterComment on above:Performed By: #### [id number] ####[facility] ([facility])[address] [place] [address] Neutrophils (Bld) [#/Vol]4.10 10*3/uLNormal1.60-7.60UnUniversity Hospitals Beachwood Medical CenterComment on above:Performed By: #### [id number] ####[facility] ([facility])[address] [place] [address]Dzncpnmgzid/100 WBC (Bld)85.4 %High 40.0-72.0UnUniversity Hospitals Beachwood Medical CenterComment on above:Performed By: #### [id number] ####[facility] ([facility])[address] [id number] (PER 100 WBCS) BY AUTOMATED COUNT0.0 %Uomoyo5FagprlmqggUniversity Hospitals Beachwood Medical Center Comment on above:Performed By: #### [id number] ####[facility] ([facility])[address] [place] [address]UIPJHVPVB (10*3/UL) IN BLOOD AUTOMATED [id number] 10*3/uJIszozb637-501IprksmymkcUniversity Hospitals Beachwood Medical CenterComment on above: Performed By: #### [id number] ####[facility] ([facility])[address] [place] [place] [address]ABW (Bld) [#/Vol]3.44 10*6/uLLow4.20-5.70UnUniversity Hospitals Beachwood Medical CenterComment on above:Performed By: #### [id number] ####[facility] ([facility])[address] [address]RKD (Bld) [#/Vol]4.81 10*3/uLNormal 4.00-10.60UnUniversity Hospitals Beachwood Medical CenterComment on above:Performed By: #### [id number] ####[facility] ([facility])[address] [place] [address] FIBRINOGENon 31-16-8503Robjmgotk [Mass/Vol]228 mg/lUXgtogb046-690VvounfrlcvUniversity Hospitals Beachwood Medical CenterComment on above:Performed By: #### [id number] ####[facility] ([facility])[address] [place], [place] [address]VDPPOFJOB, DIRECTon 74-01-8496Ojcqvmmgq [Mass/Vol]0.2 mg/dLNormal0-0.2UnUniversity Hospitals Beachwood Medical CenterComment on above:Performed By: #### [id number] ####[facility] ([facility])[address] [place] [address]WWLJCVX, IONIZEDon 92-20-1115ZVYVKOM IONIZED (MMOL/L) IN BLOOD1.29 mmol/LNormal1.15-1.33UnUniversity Hospitals Beachwood Medical CenterComment on above:Performed By: #### [id number] ####[facility] RESPIRATORY [id number] [place] [address] USACBC WITH AUTO DIFFERENTIALon 10-13-2024 Basophils (Bld) [#/Vol]0.02 10*3/uLNormal0.00-0.20UnUniversity Hospitals Beachwood Medical CenterComment on above:Performed By: #### [id number] ####[facility] ([facility])[address] [place] [address]Dkfwdrmhk/100 WBC (Bld)0.4 %Normal 0.0-1.0UnUniversity Hospitals Beachwood Medical CenterComment on above:Performed By: #### [id number] ####[facility] ([facility])[address] [place] [address] Eosinophils (Bld) [#/Vol]0.25 10*3/uLNormal0.00-0.50UnUniversity Hospitals Beachwood Medical CenterComment on above:Performed By: #### [id number] ####[facility] ([facility])[address], [place] [address]Qsutespbiig/100 WBC (Bld)4.9 %Normal 0.0-6.0UnUniversity Hospitals Beachwood Medical CenterComment on above:Performed By: #### [id number] ####[facility] ([facility])[address] [place] [address] Erythrocyte distribution width (RBC) [Ratio]13.6 %Hhqfgi66.5-15.0UnUniversity Hospitals Beachwood Medical CenterComment on above:Performed By: #### [id number] ####[facility] ([facility])[address] [place], [place] [address]IKAENWQDAQN MEAN CORPUSCULAR HEMOGLOBIN CONCENTRATION (G/DL) BY LZPKTEFZO87.3 g/fWIsjnpw01.0-35.0 [facility] CenterComment on above:Performed By: #### [id number] ####[facility] ([facility])[address] [address]Myoautyhdf (Bld) [Volume fraction]36.6 %Low39.0-50.0UnUniversity Hospitals Beachwood Medical CenterComment on above:Performed By: #### [id number] ####[facility] ([facility])[address] [place] [address]Vkmxxpnelp (Bld) [Mass/Vol]12.2 g/dLLow13.0-17.0UnUniversity Hospitals Beachwood Medical CenterComment on above:Performed By: #### [id number] ####[facility] ([facility])[address] [place] [address]Pdnfwouv granulocytes (Bld) [#/Vol]0.14 10*3/uLNormal0.00-0.20UnUniversity Hospitals [facility] Center Comment on above:Performed By: #### [id number] ####[facility] ([facility])[address] [place] [address]Qwclvdlm granulocytes/100 WBC (Bld)2.8 %High0.0-1.0 [facility] CenterComment on above:Performed By: #### [id number] ####[facility] ([facility])[address] [place] [address]Hmtcvsxbcat (Bld) [#/Vol]0.09 10*3/uLLow1.20-4.00UnUniversity Hospitals Beachwood Medical CenterComment on above:Performed By: #### [id number] ####[facility] ([facility])[address] [place] [address]Tskdqbjjpcb/100 WBC (Bld)1.8 %Low20.0-45.0UnUniversity Hospitals Beachwood Medical CenterComment on above:Performed By: #### [id number] ####[facility] ([facility])[address] [place] [address]IWP (RBC) [Entitic mass] 32.6 hqDunvcn68.0-33.0UnUniversity Hospitals Beachwood Medical CenterComment on above: Performed By: #### [id number] ####[facility] ([facility])[address] [place] [address]KDY (RBC) [Entitic vol]97.9 jDXhrudo53.0-98.0UnUniversity Hospitals Beachwood Medical CenterComment on above:Performed By: #### [id number] ####[facility] ([facility])[address] [place] [address]Dwaozekok (Bld) [#/Vol] 0.37 10*3/uLNormal0.10-1.00UnUniversity Hospitals Beachwood Medical CenterComment on above: Performed By: #### [id number] ####[facility] ([facility])[address] [place] [address]Fmhedebph/100 WBC (Bld)7.3 %Normal5.0-12.0UnUniversity Hospitals Beachwood Medical CenterComment on above:Performed By: #### [id number] ####[facility] ([facility])[address] [place] [address]Jusqdvfwvse (Bld) [#/Vol] 4.21 10*3/uLNormal1.60-7.60UnUniversity Hospitals Beachwood Medical CenterComment on above: Performed By: #### [id number] ####[facility] ([facility])[address] [place] [address]Scqtjvjtqrq/100 WBC (Bld)82.8 %High40.0-72.0UnUniversity Hospitals Beachwood Medical CenterComment on above:Performed By: #### [id number] ####[facility] ([facility])[address] [address]LYPQ (PER 100 WBCS) BY AUTOMATED COUNT0.0 %Ydpgbx3WqruuirkubUniversity Hospitals Beachwood Medical CenterComment on above: Performed By: #### [id number] ####[facility] ([facility])[address] [address]TAMUVFHMA (10*3/UL) IN BLOOD AUTOMATED [id number] 10*3/uLNormal 150-400UnUniversity Hospitals Beachwood Medical CenterComment on above:Performed By: #### [id number] ####[facility] ([facility])[address] [place] [address]PBD (Bld) [#/Vol]3.74 10*6/uLLow4.20-5.70UnUniversity Hospitals Beachwood Medical CenterComment on above:Performed By: #### [id number] ####[facility] ([facility])[address] [address]RGO (Bld) [#/Vol]5.08 10*3/uLNormal4.00-10.60UnUniversity Hospitals Beachwood Medical CenterComment on above:Performed By: #### [id number] ####[facility] ([facility])[address] [address]LEOXMLLTSWWZA METABOLIC PANELon 48-53-1780Osyllap [Mass/Vol]4.0 g/dLNormal3.5-5.7UnUniversity Hospitals Beachwood Medical CenterComment on above:Performed By: #### [id number] ####[facility] ([facility])[address] [place] [address]XQR [Catalytic activity/Vol]65 U/L Oryywm81-570MlvrrzdwekUniversity Hospitals Beachwood Medical CenterComment on above:Performed By: #### [id number] ####[facility] ([facility])[address] [place] [address]YDC [Catalytic activity/Vol]13 U/LNormal7-52UnUniversity [facility] Comment on above:Performed By: #### [id number] ####[facility] ([facility])[address] [place] [address]Eepto gap [Moles/Vol]8 mmol/LNormal7-20UnUniversity Hospitals Beachwood Medical CenterComment on above:Performed By: #### [id number] ####[facility] ([facility])[address] [place] [address]JLV [Catalytic activity/Vol]15 U/WQaruct42-21KfuiyisonkUniversity Hospitals Beachwood Medical CenterComment on above:Performed By: #### [id number] ####[facility] ([facility])[address] [address]Rlfzvnlof [Mass/Vol]0.8 mg/dLNormal0.3-1.0UnUniversity Hospitals Beachwood Medical CenterComment on above:Performed By: #### [id number] ####[facility] ([facility])[address] [place] [address]Vlcwuqd [Mass/Vol]8.9 mg/dLNormal 8.6-10.3UnUniversity Hospitals Beachwood Medical CenterComment on above:Performed By: #### [id number] ####[facility] ([facility])[address] [place] [address]Etpvjqrz [Moles/Vol]109 mmol/KAbkp78-717YmzgedxmejUniversity Hospitals Beachwood Medical CenterComment on above:Performed By: #### [id number] ####[facility] ([facility])[address] [place] [address]EN2 [Moles/Vol]26 mmol/NKdgxwe58-35VjhgbutvenUniversity Hospitals Beachwood Medical CenterComment on above:Performed By: #### [id number] ####[facility] ([facility])[address] [place] [address]Xehvlkohxp [Mass/Vol]2.11 mg/dLHigh 0.70-1.30UnUniversity Hospitals Beachwood Medical CenterComment on above:Performed By: #### [id number] ####[facility] ([facility])[address], [place] [address]HJEOAFLYPZ FILTRATION RATE ML/MIN/1.73 SQ M.GIPBDHNUD43.1 mL/min/1.73m*2Low>60.0UnUniversity Hospitals Beachwood Medical CenterComment on above:Result Comment: The [facility]???s estimated glomerular filtration rate (eGFR) will no [...] potential consequences that do not disproportionately affect anyone group of individuals. Performed By: #### [id number] ####[facility] ([facility])[address] [place], [place] [address]Gxshocc [Mass/Vol]88 mg/gCAejtwa61-545LfutdutldmUniversity Hospitals Beachwood Medical CenterComment on above:Performed By: #### [id number] ####[facility] ([facility])[address] [place], [place] [address]Rdlpfgrgi [Moles/Vol]4.0 mmol/LNormal 3.5-5.1UnUniversity Hospitals Beachwood Medical CenterComment on above:Performed By: #### [id number] ####[facility] ([facility])[address] [place], [place] [address]Mzinahg [Mass/Vol]6.0 g/dLNormal6.0-8.3UnUniversity Hospitals Beachwood Medical CenterComment on above:Performed By: #### [id number] ####[facility] ([facility])[address] [place], [place] [address]Xnojxp [Moles/Vol]139 mmol/AHfwfaf840-568HsbipunbvdUniversity Hospitals Beachwood Medical CenterComment on above:Performed By: #### [id number] ####[facility] ([facility])[address] [place], [place] [address]Kwob nitrogen [Mass/Vol]29 mg/dLHigh 7-25UnUniversity Hospitals [facility] Medical CenterComment on above:Performed By: #### [id number] ####[facility] ([facility])[address] [place], [place] [address]FOGI NITROGEN/CREATININE (MASS RATIO) IN SER/PLAS13.7NormalUniversPremier Health Atrium Medical CenterComment on above:Performed By: #### [id number] ####[facility] ([facility])[address] [place], [place] [address]QWKNHTIYKAxn 91-62-4997Eszrnaqlx [Mass/Vol]197 mg/jBGikaxw503-967BmxnpwbrcnUniversity Hospitals Beachwood Medical CenterComment on above:Performed By: #### [id number] ####[facility] ([facility])[address] [place] [address]Vgcdq 51-56-0814HknMctzxgNgbrdtplvq of [facility] MAGNESIUMon 72-74-5306Cymgdgblc [Mass/Vol]2.4 mg/dLNormal1.9-2.7UnUniversity Hospitals Beachwood Medical CenterComment on above:Performed By: #### [id number] ####[facility] ([facility])[address] [place], [place] [address]EARAOVOWIZnj 10-13-2024 Magnesium [Mass/Vol]3.4 mg/dLNormal2.5-5.0UnUniversity [facility] Comment on above:Performed By: #### [id number] ####[facility] ([facility])[address] [place], [place] [address]KKRRHVARWT LEVELon 00-03-9834Jwkpriicos (Bld) [Mass/Vol]2.9 ng/mLLow5.0-20.0UnUniversity Hospitals Beachwood Medical CenterComment on above:Result Comment: The [employer] Tacrolimus assay is a delayed one- step immunoassay for the quantitative determination of tacrolimus in human whole blood using the chemiluminescent microparticle immunoassay (CMIA) technology with flexible assay protocols, referred to as Chemiflex.Performed By: #### [id number] ####[facility] ([facility])[address] [place], [place] [address]SGRU ACID on 66-77-8052Hnszdgdtz [Mass/Vol]5.2 mg/dLNormal4.4-7.6UnUniversity Hospitals Beachwood Medical CenterComment on above:Performed By: #### [id number] ####[facility] ([facility])[address] [place] [id number] 58-73-[address]Iaf patient is Moderately Stable - Low risk of patient condition declining or worsening The patient's goals for the shift include Comfort and discharge The clinical goals for the shift include VSS, safety, comfort and Discuss discharge planningNormalUniversPremier Health Atrium Medical CenterBASIC METABOLIC PANEL on 57-08-8104Qxdlo gap [Moles/Vol]11 mmol/LNormal7-20UnUniversity [facility]als [facility]wood Medical CenterComment on above:Performed By: #### [id number] ####[facility] ([facility])[address] [place], [place] [address]Fnqzhbp [Mass/Vol]8.8 mg/dLNormal 8.6-10.3UnUniversity Hospitals Beach[facility] Medical CenterComment on above:Performed By: #### [id number] ####[facility] ([facility])[address] [place], [place] [address]Rgxtrsws [Moles/Vol]113 mmol/XOwkc96-854EmhzlxnlpxUniversity Hospitals Beachwood Medical CenterComment on above:Performed By: #### [id number] ####[facility] ([facility])[address] [place], [place] [address]ZM0 [Moles/Vol]19 mmol/TCok11-25GuqoidoqxwUniversity Hospitals Beachwood Medical CenterComment on above:Performed By: #### [id number] ####[facility] ([facility])[address] [place], [place] [address]Qrhplkmomh [Mass/Vol]2.35 mg/dLHigh 0.70-1.30UnUniversity Hospitals Beachwood Medical CenterComment on above:Performed By: #### [id number] ####[facility] ([facility])[address] [place], [place] [address]PHJYZXAEEC FILTRATION RATE ML/MIN/1.73 SQ M.NPLDWQDKQ76.5 mL/min/1.73m*2Low>60.0UnUniversity Hospitals Beachwood Medical CenterComment on above:Result Comment: [facility]???s estimated glomerular filtration rate (eGFR) will no [...] potential consequences that do not disproportionately affect anyone group of individuals. Performed By: #### [id number] ####[facility] ([facility])[address] [address]Uirrcnq [Mass/Vol]118 mg/gZQywd34-023SfqpahmlrfUniversity Hospitals Beachwood Medical CenterComment on above:Performed By: #### [id number] ####[facility] ([facility])[address] [address]Drnfmjxep [Moles/Vol]4.5 mmol/LNormal 3.5-5.1UnUniversity Hospitals Beachwood Medical CenterComment on above:Performed By: #### [id number] ####[facility] ([facility])[address], [place] [address]Bgkaah [Moles/Vol]138 mmol/FEtufbd289-572UpkfwbbhonUniversity Hospitals Beachwood Medical CenterComment on above:Performed By: #### [id number] ####[facility] ([facility])[address] [place], [place] [address]Acfz nitrogen [Mass/Vol]43 mg/dLHigh7-25UnUniversity Hospitals Beach[facility] Medical CenterComment on above:Performed By: #### [id number] ####[facility] ([facility])[address] [place], [place] [address]LHEI NITROGEN/CREATININE (MASS RATIO) IN SER/PLAS18.3NormalUniversPremier Health Atrium Medical CenterComment on above: Performed By: #### [id number] ####[facility] ([facility])[address] [place] [address]EGUzp 76-67-4853Vskumslgwnw distribution width (RBC) [Ratio]13.8 % Stutyy86.5-15.0UnUniversity Hospitals Beachwood Medical CenterComment on above:Performed By: #### [id number] ####[facility] ([facility])[address] [place] [address] ERYTHROCYTE MEAN CORPUSCULAR HEMOGLOBIN CONCENTRATION (G/DL) BY INNWJYPPK83.7 g/dLLow32.0-35.0UnUniversity Hospitals Beachwood Medical CenterComment on above:Performed By: #### [id number] ####[facility] ([facility])[address] [place] [address] Hematocrit (Bld) [Volume fraction]35.7 %Low39.0-50.0UnUniversity Hospitals Beachwood Medical CenterComment on above:Performed By: #### [id number] ####[facility] ([facility])[address] [place] [address]Dgqurgtogg (Bld) [Mass/Vol]11.3 g/dL Low13.0-17.0UnUniversity Hospitals Beachwood Medical CenterComment on above:Performed By: #### [id number] ####[facility] ([facility])[address] [place] [address]KLM (RBC) [Entitic mass]31.7 qyGralod12.0-33.0UnUniversity [facility]als [facility] Center Comment on above:Performed By: #### [id number] ####[facility] ([facility])[address] [place] [address]WLA (RBC) [Entitic vol]100.3 eKIedc03.0-98.0 [facility] CenterComment on above:Performed By: #### [id number] ####[facility] ([facility])[address] [place] [address]PAZDITBYD (10*3/UL) IN BLOOD AUTOMATED [id number] 10*3/eYKfptdd654-620EkkdunisqxUniversity Hospitals Beachwood Medical CenterComment on above:Performed By: #### [id number] ####[facility] ([facility])[address] [address]LWY (Bld) [#/Vol]3.56 10*6/uLLow 4.20-5.70UnUniversity Hospitals Beachwood Medical CenterComment on above:Performed By: #### [id number] ####[facility] ([facility])[address] [place] [address]PZC (Bld) [#/Vol]5.12 10*3/uLNormal4.00-10.60UnUniversity Hospitals Beachwood Medical CenterComment on above:Performed By: #### [id number] ####[facility] ([facility])[address] [place] [address]KXem 17-65-5330BYTdqretOyuhhlqjnh of [facility] MAGNESIUMon 42-80-3332Mrhdfmhcb [Mass/Vol]1.8 mg/dLLow1.9-2.7UnUniversity Hospitals [facility]wood Medical CenterComment on above:Performed By: #### [id number] ####[facility] ([facility])[address] [place] [place] [address]NPVRPJUIVFps 10-10-2024 Magnesium [Mass/Vol]4.0 mg/dLNormal2.5-5.0Un[facility] Comment on above:Performed By: #### [id number] ####[facility] ([facility])[address] [place] [address]IMDQEKZAAM LEVELon 23-73-1128Pjignjqlmw (Bld) [Mass/Vol]6.6 ng/mLNormal5.0-20.0UnUniversity Hospitals Beachwood Medical CenterComment on above:Result Comment: The [employer] Tacrolimus assay is a delayed one- step immunoassay for the quantitative determination of tacrolimus in human whole blood using the chemiluminescent microparticle immunoassay (CMIA) technology with flexible assay protocols, referred to as Chemiflex.Performed By: #### [id number] ####[facility] ([facility])[address] [place] [address]10dv 76-33-353200UvecerEaznkhgdlkSt. [facility] Hospital30The patient is Moderately Stable - Low risk of patient condition declining or worsening The patient's goals for the shift include Comfort The clinical goals for the shift include Plasmapheresis, VSS, safety and comfort NormalUnUniversity Hospitals Beachwood Medical Center36on 22-65-886797WwxwjzFaoutywupk of [facility] Medical CenterBASIC METABOLIC PANELon 06-87-6887Vdfzr gap [Moles/Vol]12 mmol/LNormal7-20UnUniversity [facility]als [facility] Medical CenterComment on above:Performed By: #### [id number] ####[facility] ([facility])[address] [place] [address] Calcium [Mass/Vol]8.9 mg/dLNormal8.6-10.3Un[facility] Comment on above:Performed By: #### LAB15 ####[facility] ([facility])[address] [place] [address]Glbutwem [Moles/Vol]111 mmol/OJeny13-848UmnadwrrvxUniversity Hospitals Beachwood Medical CenterComment on above:Performed By: #### LAB15 ####[facility] ([facility])[address] [place] [address]JQ8 [Moles/Vol]22 mmol/L Usdbzq83-40PovwhntyanUniversity Hospitals Beachwood Medical CenterComment on above:Performed By: #### LAB15 ####[facility] ([facility])[address] [place] [address] Creatinine [Mass/Vol]2.78 mg/dLHigh0.70-1.30Un[facility] Comment on above:Performed By: #### LAB15 ####[facility] ([facility])[address] [facility] [place] [place] [address]DBVHPSLKTZ FILTRATION RATE ML/MIN/1.73 SQ M.KNIREYIBB92.4 mL/min/1.73m*2Low>60.0UnUniversity Hospitals Beachwood Medical CenterComment on above:Result Comment: [facility]???s estimated glomerular filtration rate (eGFR) will no [...] potential consequences that do not disproportionately affect anyone group of individuals.Performed By: #### LAB15 ####[facility] ([facility])[address] [place] [address]Chtmxxt [Mass/Vol]154 mg/rTLsgp64-584 [facility] CenterComment on above:Performed By: #### LAB15 ####[facility] ([facility])[address] [place] [address]Gkszniwwj [Moles/Vol]5.0 mmol/LNormal3.5-5.1UnUniversity Hospitals [facility] Medical CenterComment on above:Performed By: #### LAB15 ####[facility] ([facility])[address] [address]Bhnyec [Moles/Vol]140 mmol/PGwfter387-001RxdgqfqzucUniversity Hospitals Beachwood Medical CenterComment on above:Performed By: #### LAB15 ####[facility] ([facility])[address] [place] [address]Hcuw nitrogen [Mass/Vol]46 mg/dLHigh 7-25UnUniversity Hospitals Beachwood Medical CenterComment on above:Performed By: #### LAB15 ####[facility] ([facility])[address] [place] [address]QXGE NITROGEN/CREATININE (MASS RATIO) IN SER/PLAS16.5NormalUniversPremier Health Atrium Medical CenterComment on above:Performed By: #### LAB15 ####[facility] ([facility])[address] [place] [address]GAGBOSV, IONIZEDon 80-25-8211VDCPETF IONIZED (MMOL/L) IN BLOOD1.27 mmol/LNormal1.15-1.33UnUniversity Hospitals [facility] Medical CenterComment on above:Performed By: #### [id number] ####[facility] RESPIRATORY [id number] [place] [address] USACBCon 41-21-3345Fvunbwytlig distribution width (RBC) [Ratio]13.8 %Eqfgip22.5-15.0UnUniversity Hospitals Beachwood Medical CenterComment on above:Performed By: #### [id number] ####[facility] LAB ([facility])[address] [place] [address]DBAAEHIMZAW MEAN CORPUSCULAR HEMOGLOBIN CONCENTRATION (G/DL) BY CIESZTAFN83.4 g/mZKxrtez36.0-35.0UnUniversity Hospitals Beachwood Medical CenterComment on above:Performed By: #### [id number] ####[facility] LAB ([facility])[address] [place] [address]Tvxnhbinvl (Bld) [Volume fraction]33.6 %Low39.0-50.0 [facility] CenterComment on above:Performed By: #### [id number] ####[facility] LAB ([facility])[address] [address]Vsbfhmixjs (Bld) [Mass/Vol]10.9 g/dLLow13.0-17.0UnUniversity Hospitals Beachwood Medical CenterComment on above:Performed By: #### [id number] ####[facility] LAB ([facility])[address] [place] [address]PJD (RBC) [Entitic mass]32.2 pwNptzbu63.0-33.0UnUniversity Hospitals Beachwood Medical CenterComment on above:Performed By: #### [id number] ####[facility] LAB ([facility])[address] [place] [address]KYA (RBC) [Entitic vol] 99.4 iIRwcv75.0-98.0UnUniversity Hospitals Beachwood Medical CenterComment on above: Performed By: #### [id number] ####[facility] LAB ([facility])[address] [place] [address]ZVKOCEIBB (10*3/UL) IN BLOOD AUTOMATED [id number] 10*3/uLNormal 150-400UnUniversity Hospitals Beachwood Medical CenterComment on above:Performed By: #### [id number] ####[facility] ([facility])[address] [place] [address]CEX (Bld) [#/Vol]3.38 10*6/uLLow4.20-5.70UnUniversity Hospitals Beachwood Medical CenterComment on above:Performed By: #### [id number] ####[facility] ([facility])[address] [place] [address]KET (Bld) [#/Vol]6.94 10*3/uLNormal4.00-10.60UnUniversity Hospitals Beachwood Medical CenterComment on above:Performed By: #### [id number] ####[facility] ([facility])[address] [place] [address]JB ABDOMEN PELVIS WO IV CONTRASTon 21-17-4042DP ABDOMEN PELVIS WO IV CONTRASTInvalid Interpretation Code [facility]als Parma Medical CenterComment on above:Order Comment: Assess hematoma status from biopsyDocumentationon 01-22-0363VlcfqnyznpolhMtqtos [facility] Parma Medical CenterFIBRINOGENon 41-51-2366Vkldzskts [Mass/Vol] 192 mg/uHGtckcg921-484RhgyxxnznhUniversity Hospitals Beachwood Medical CenterComment on above: Performed By: #### [id number] ####[facility] ([facility])[address] [facility] [place] [place] [address]XNFFMRRLSkj 14-46-0959Itnklwuzr [Mass/Vol]2.1 mg/dLNormal 1.9-2.7UnUniversity Hospitals Beachwood Medical CenterComment on above:Performed By: #### [id number] ####[facility] ([facility])[address] [place], [place] [address]Ngxwjt Onlyon 28-59-0478Dpsqyb OnlyNormalUniSt. Vincent HospitalPHOSPHORUS on 22-81-1831Iecbkzcjr [Mass/Vol]3.6 mg/dLNormal2.5-5.0UnUniversity Hospitals Beachwood Medical CenterComment on above:Performed By: #### [id number] ####[facility] ([facility])[address] [place], [place] [address]AGMKRTTPLU LEVELon 10-09-2024 Tacrolimus (Bld) [Mass/Vol]8.0 ng/mLNormal5.0-20.0UnUniversity Hospitals Beachwood Medical CenterComment on above:Result Comment: The [employer] Tacrolimus assay is a delayed one-step immunoassay for the quantitative determination of tacrolimus in human whole blood using the chemiluminescent microparticle immunoassay (CMIA) technology with flexible assay protocols, referred to as Chemiflex.Performed By: #### [id number] ####[facility] ([facility])[address] [place] [address] 30on 19-12-149232OgmnlwQnupyzwveiSt. Vincent Hospital30The patient is Moderately Stable - Low risk of patient condition declining or worsening The patient's goals for the shift include Comfort The clinical goals for the shift include VSS, safety and comfortNormalUniversPremier Health Atrium Medical CenterBASIC METABOLIC PANELon 70-64-7075Wpoxi gap [Moles/Vol] 13 mmol/LNormal7-20UnUniversity Hospitals Beachwood Medical CenterComment on above:Performed By: #### [id number] ####[facility] ([facility])[address] [place] [address] Calcium [Mass/Vol]9.0 mg/dLNormal8.6-10.3UnUniversity Hospitals Beachwood Medical Center Comment on above:Performed By: #### [id number] ####[facility] ([facility])[address], [place] [address]Iwsvlmck [Moles/Vol]111 mmol/LTaqx86-311QnobqprgrsUniversity Hospitals Beachwood Medical CenterComment on above:Performed By: #### [id number] ####[facility] ([facility])[address], [place] [address]VY2 [Moles/Vol]19 mmol/L Spc70-45CsomssgpitUniversity Hospitals Beachwood Medical CenterComment on above:Performed By: #### [id number] ####[facility] ([facility])[address], [place] [address]Uwlhetfzji [Mass/Vol]3.17 mg/dLHigh0.70-1.30UnUniversity Hospitals Beachwood Medical CenterComment on above:Performed By: #### [id number] ####[facility] ([facility])[address], [place] [address]VAKVQAKDUS FILTRATION RATE ML/MIN/1.73 SQ M.VLKAAEGLC19.4 mL/min/1.73m*2Low>60.0UnUniversity Hospitals Beachwood Medical CenterComment on above:Result Comment: The [facility]???s estimated glomerular filtration rate (eGFR) will no [...] potential consequences that do not disproportionately affect anyone group of individuals.Performed By: #### [id number] ####[facility] ([facility])[address] [place], [place] [address]Gtckyko [Mass/Vol]146 mg/eKEbkk44-997EysgztxkoqUniversity Hospitals Beachwood Medical CenterComment on above:Performed By: #### [id number] ####[facility] ([facility])[address] [place], [place] [address]Pmdrjezdr [Moles/Vol]5.3 mmol/L High3.5-5.1UnUniversity Hospitals Beachwood Medical CenterComment on above:Performed By: #### [id number] ####[facility] ([facility])[address] [place] [address] Sodium [Moles/Vol]138 mmol/KCkvapg278-250XivlnurkvaUniversity Hospitals Beachwood Medical Center Comment on above:Performed By: #### [id number] ####[facility] ([facility])[address] [place], [place] [address]Bsni nitrogen [Mass/Vol]45 mg/dLHigh7-25UnUniversity Hospitals Beachwood Medical CenterComment on above:Performed By: #### [id number] ####[facility] ([facility])[address] [place], [place] [address]UVTJ NITROGEN/CREATININE (MASS RATIO) IN SER/PLAS14.2NormalUnUniversity Hospitals Beachwood Medical CenterComment on above:Performed By: #### [id number] ####[facility] ([facility])[address] [place], [place] [address]WIVur 31-74-6578Kyfobsxpvmv distribution width (RBC) [Ratio] 13.8 %Dwdubq27.5-15.0UnUniversity Hospitals Beachwood Medical CenterComment on above: Performed By: #### [id number] ####[facility] ([facility])[address] [place], [place] [address]QNERHQZVRRH MEAN CORPUSCULAR HEMOGLOBIN CONCENTRATION (G/DL) BY BZNKLFIEC45.1 g/pBLfpwdn28.0-35.0UnUniversity Hospitals Beachwood Medical CenterComment on above:Performed By: #### [id number] ####[facility] ([facility])[address] [place] [address]Hptjgastwp (Bld) [Volume fraction]32.9 %Low39.0-50.0 [facility] Parma Medical CenterComment on above:Performed By: #### [id number] ####[facility] ([facility])[address] [place] [address]Pvetachhmq (Bld) [Mass/Vol]10.9 g/dLLow13.0-17.0UnUniversity Hospitals Beachwood Medical CenterComment on above:Performed By: #### [id number] ####[facility] ([facility])[address] [place] [address]EBX (RBC) [Entitic mass]32.5 bmJqvxqs97.0-33.0UnUniversity Hospitals Beachwood Medical CenterComment on above:Performed By: #### [id number] ####[facility] ([facility])[address] [place] [address]FHP (RBC) [Entitic vol] 98.2 xFMolp88.0-98.0UnUniversity Hospitals Beachwood Medical CenterComment on above: Performed By: #### [id number] ####[facility] ([facility])[address] [place] [address]QTXUWURZM (10*3/UL) IN BLOOD AUTOMATED MELCV638 10*3/uLNormal 150-400UnUniversity Hospitals Beachwood Medical CenterComment on above:Performed By: #### [id number] ####[facility] ([facility])[address] [place] [address]NFG (Bld) [#/Vol]3.35 10*6/uLLow4.20-5.70UnUniversity Hospitals Beachwood Medical CenterComment on above:Performed By: #### [id number] ####[facility] ([facility])[address] [place] [address]MOS (Bld) [#/Vol]7.31 10*3/uLNormal4.00-10.60UnUniversity Hospitals Beachwood Medical CenterComment on above:Performed By: #### [id number] ####[facility] ([facility])[address] [place] [address]HPCCBTQWByk 10-08-2024 Magnesium [Mass/Vol]2.2 mg/dLNormal1.9-2.7UnUniversity Hospitals [facility] Medical Center Comment on above:Performed By: #### [id number] ####[facility] ([facility])[address] [facility] [place] [address]SGSBETDZJNmt 43-27-0052Fbgqdlrdr [Mass/Vol]3.8 mg/dLNormal2.5-5.0UnUniversity Hospitals Beachwood Medical CenterComment on above:Performed By: #### [id number] ####[facility] ([facility])[address] [place] [address] POTASSIUMon 66-69-5174Zmeujuzko [Moles/Vol]4.6 mmol/LNormal3.5-5.1UnUniversity Hospitals Beachwood Medical CenterComment on above:Performed By: #### [id number] ####[facility] ([facility])[address] [facility] [place] [address]YAPEPYCVMV LEVELon 40-13-9120Hgdzzkmxbq (Bld) [Mass/Vol]9.2 ng/mLNormal5.0-20.0UnUniversity Hospitals Beachwood Medical CenterComment on above:Result Comment: The [employer] Tacrolimus assay is a delayed one-step immunoassay for the quantitative determination of tacrolimus in human whole blood using the chemiluminescent microparticle i mmunoassay (CMIA) technology with flexible assay protocols, referred to as Chemiflex.Performed By: #### [id number] ####[facility] ([facility])[address] [facility] [place] [address]nl 38-85-661526TdlwjsBrevqmuech of [facility] APTTon 74-28-4034MSVORPRZE PARTIAL THROMBOPLASTIN TIME IN PPP BY COAGULATION ASSAY34.2 NkljpmmVrzmqz09.0-35.0UnUniversity Hospitals Beachwood Medical CenterComment on above:Result Comment: Clinical significance of the APTT is questionable in the presence of heparin.Performed By: #### [id number] ####[facility] ([facility])[address], [place] [address]TCXLY METABOLIC PANELon 20-25-4467Ragqg gap [Moles/Vol]10 mmol/LNormal7-20UnUniversity Hospitals Beachwood Medical CenterComment on above:Performed By: #### [id number] ####[facility] ([facility])[address] [place] [address]Errsdjg [Mass/Vol]8.8 mg/dLNormal8.6-10.3UnUniversity Hospitals Beachwood Medical CenterComment on above:Performed By: #### [id number] ####[facility] ([facility])[address], [place] [address]Kdfbkeyp [Moles/Vol]111 mmol/LHigh 98-107UnUniversity Hospitals Beachwood Medical CenterComment on above:Performed By: #### [id number] ####[facility] ([facility])[address], [place] [address]ES2 [Moles/Vol]21 mmol/ZRtxxqn91-47IascyhltceUniversity Hospitals Beachwood Medical CenterComment on above:Performed By: #### [id number] ####[facility] ([facility])[address], [place] [address]Yuanrjycgr [Mass/Vol]3.13 mg/dLHigh0.70-1.30UnUniversity Hospitals Beachwood Medical CenterComment on above:Performed By: #### [id number] ####[facility] ([facility])[address], [place] [address]HSGPVOWKAL FILTRATION RATE ML/MIN/1.73 SQ M.RTUMIEQKB47.8 mL/min/1.73m*2Low>60.0UnUniversity Hospitals Beachwood Medical CenterComment on above:Result Comment: The [facility]???s estimated glomerular filtration rate (eGFR) will no [...] potential consequences that do not disproportionately affect anyone group of individuals.Performed By: #### [id number] ####[facility] ([facility])[address] [place] [address]Mtdzqtn [Mass/Vol]180 mg/sXJofx21-663OmifjhdeggUniversity Hospitals Beachwood Medical CenterComment on above:Performed By: #### [id number] ####[facility] ([facility])[address] [place] [address]Rchwywttz [Moles/Vol]5.8 mmol/LHigh3.5-5.1UnUniversity Hospitals Beachwood Medical CenterComment on above:Performed By: #### [id number] ####[facility] ([facility])[address] [place] [address]Zhrvoq [Moles/Vol]136 mmol/L Qaiaba057-236PxiegfzbemUniversity Hospitals Beachwood Medical CenterComment on above:Performed By: #### [id number] ####[facility] ([facility])[address] [place], [place] [address]Pcde nitrogen [Mass/Vol]35 mg/dLHigh7-25UnUniversity Hospitals Beachwood Medical CenterComment on above:Performed By: #### [id number] ####[facility] ([facility])[address], [place] [address]UMQR NITROGEN/CREATININE (MASS RATIO) IN SER/PLAS11.2Normal [facility] Medical CenterComment on above:Performed By: #### [id number] ####[facility] ([facility])[address] [place], [place] [address]SMGhc 10-07-2024 Erythrocyte distribution width (RBC) [Ratio]13.8 %Rzyyik16.5-15.0UnUniversity Hospitals Beachwood Medical CenterComment on above:Performed By: #### [id number] ####[facility] ([facility])[address] [place], [place] [address]KRNQUUCHHXV MEAN CORPUSCULAR HEMOGLOBIN CONCENTRATION (G/DL) BY CPQTLSTKQ02.4 g/yUBhtfrb59.0-35.0 [facility] Medical CenterComment on above:Performed By: #### [id number] ####[facility] ([facility])[address] [place] [address]Jsuwyczycn (Bld) [Volume fraction]37.3 %Low39.0-50.0UnUniversity Hospitals Beachwood Medical CenterComment on above:Performed By: #### [id number] ####[facility] ([facility])[address] [place] [address]Hjlygvlzdf (Bld) [Mass/Vol]12.1 g/dLLow13.0-17.0UnUniversity Hospitals Beachwood Medical CenterComment on above:Performed By: #### [id number] ####[facility] ([facility])[address] [place] [address]OFG (RBC) [Entitic mass] 32.2 kqEpaoyz77.0-33.0UnUniversity Hospitals Beachwood Medical CenterComment on above: Performed By: #### [id number] ####[facility] ([facility])[address] [place] [address]BWT (RBC) [Entitic vol]99.2 hOMjnr06.0-98.0UnUniversity Hospitals Beachwood Medical CenterComment on above:Performed By: #### [id number] ####[facility] ([facility])[address] [place] [address]GIKIFSVTF (10*3/UL) IN BLOOD AUTOMATED KNYYP044 10*3/dGTcicqn310-036GwihtnyppdUniversity Hospitals Beachwood Medical Center Comment on above:Performed By: #### [id number] ####[facility] ([facility])[address] [place] [address]KBD (Bld) [#/Vol]3.76 10*6/uLLow4.20-5.70UnUniversity Hospitals Beachwood Medical CenterComment on above:Performed By: #### [id number] ####[facility] ([facility])[address] [place] [address]XXJ (Bld) [#/Vol]2.46 10*3/uLLow4.00-10.60UnUniversity Hospitals Beachwood Medical CenterComment on above: Performed By: #### [id number] ####[facility] ([facility])[address] [place], [place] [address]JUQ DNA, QUANTITATIVE, NAAT, PLASMAon 06-73-9358XHL QNT BY NAAT, PLASMA INTERPDetectedAbnormalNot DetectedUnUniversity Hospitals Beachwood Medical CenterComment on above:Result Comment: INTERPRETIVE INFORMATION: CMV by Quantitative NAAT, PlasmaThe quantitative range ofthis test is 1.54 - 7.00 log IU/mL (34.5- 10,000,000 IU/mL).An interpretation of Not Detected does not rule out the presenceof inhibitors or CMV DNA concentration below the level ofdetection of theassay. Care should be taken in the interpretationof any single viral load determination.International standardization has improved comparability of assayresults across laboratories, but discrepanciesstill exist due tocommutability issues with the standard.Performed By: [facility] [place], [place] [address]Djkuzwnlda Director: Venkata Leal MD, PhDCLIA Number: [id number] By: #### [id number] ####[facility] ([facility])[address], [place] [address]UXQ QNT BY NAAT, PLASMA IU/ML [address] IU/mLNormalUnUniversity Hospitals Beachwood Medical CenterComment on above:Performed By: #### [id number] ####[facility] ([facility])[address], [place] [address]TPP QNT BY NAAT, PLASMA LOG IU/ML4.23 log IU/mLNormalUnUniversity Hospitals Beachwood Medical CenterComment on above:Performed By: #### [id number] ####[facility] ([facility])[address], [place] [address]UNAAYIKrf 02-74-6144UEJNINLXrkjdp [facility] CenterCONSULTNormalUniversPremier Health Atrium Medical CenterEPSTEIN-BHATT VIRUS BY QUANTITATIVE NAAT, PLASMAon 86-62-9008DEN QNT BY NAAT, PLASMA INTERPNot detectedNormalNot DetectedUnUniversity Hospitals Beachwood Medical CenterComment on above:Result Comment: INTERPRETIVE INFORMATION: EBV by Quantitative NAAT, PlasmaThe quantitative range ofthis test is 1.54 - 8.00 log IU/mL (35.0- 100,000,000 IU/mL).An interpretation of Not Detected does not rule out the presenceof inhibitors or EBV DNA concentration below the level ofdetection of the assay. Care should be taken in the interpretationof any single viral load determination.International standardization has improved comparability of assayresults across laboratories, but discrepancies still exist due tocommutability issues with the standard.Performed By: [facility] [place] [address]Rpullyqspn Director: Venkata Leal MD, PhDCLIA Number: [id number] By: #### [id number] ####[facility] ([facility])[address], [place] [address]UNM QNT BY NAAT, PLASMA IU/MLNot detectedNormalUniversPremier Health Atrium Medical CenterComment on above:Performed By: #### [id number] ####[facility] ([facility])[address] [place] [address] EBV QNT BY NAAT, PLASMA LOG IU/MLNot detectedNormalUniversPremier Health Atrium Medical CenterComment on above:Performed By: #### [id number] ####[facility] ([facility])[address], [place] [address]EHJSSNCIFI AND HEMATOCRIT, BLOOD on 06-93-8549Gltclbseio (Bld) [Volume fraction]34.3 %Low39.0-50.0UnUniversity Hospitals Beachwood Medical CenterComment on above:Performed By: #### [id number] ####[facility] ([facility])[address] [place], [place] [address]Oqynutnnls (Bld) [Mass/Vol]11.4 g/dLLow13.0-17.0UnUniversity Hospitals Beachwood Medical CenterComment on above:Performed By: #### [id number] ####[facility] ([facility])[address] [place], [place] [address]ADSGOYEIF - TISSUE EXAMon 11-06-8474ANL AP ADDENDUM 1NPremier HealthComment on above:Result Comment: Electron MicroscopyThick sections of epoxy blocks have been reviewed by the pathologist. The sample submitted for ultrastructural evaluation consists of renal cortex with portions of 4 glomeruli identified. There is minimal evidence of glomerular sclerosis and mesangial matrix increase. 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 There is diffuse interstitial edema and focal hemorrhage. All peritubular capillary basement membranes are significantly laminated, with focal rupture.Terrance Florez, Student Fellow .Addendum electronically signed by Rosemarie Khoury MD on 10/09/2024 at 1527 EDTPerformed By: #### [id number] ####[facility] ([facility])[address] [place], [place] [address]RSD AP ASR DISCLAIMERNormalUniSt. Vincent HospitalComment on above:Performed By: #### [id number] ####[facility] ([facility])[address] [place], [place] [address]MXI AP CASE REPORTNormal [facility] Medical CenterComment on above:Result Comment: Surgical Pathology Case: [id number] Provider: Yohannes Palma CNP Collected: 10/07/2024 0900Ordering Location: [address] Urology Received: 10/07/2024 1010Pathologist: SHAD Florespecimen: Kidney, [id number] By: #### [id number] ####[facility] ([facility])[address] [place], [place] [address]DGU AP CLINICAL INFORMATIONOrder DiagnosesNormalUniversPremier Health Atrium Medical Center Comment on above:Result Comment: N17.9 - ACACIA (acute kidney injury) [ICD-10-CM] Performed By: #### [id number] ####[facility] (B[place]napchat)[address] [place], [place] [address]BYX AP DIAGNOSIS COMMENTNormalUniSt. Vincent HospitalComment on above:Result Comment: 10-10-24: Case amended to add BK stain.10-09-24: Case amended to add revised diagnosis, IHC results and special stain results.Note: The C4d IF was negative. C4d IHC focal positive.Yohannes Palma called 10-09-24 1:45 pmCorrected result: Previously reported on 10/09/2024 at 1553 EDT.Performed By: #### [id number] ####[facility] ([facility])[address] [facility], [place] [address]ARB AP GROSS DESCRIPTIONA. Kidney. [facility] County HospitalComment on above:Result Comment: Received fresh labeled Jordi Huerta, kidney biopsy,Biopsy #1: measures 2.0 x 0.1 x 0.1 cm; tannish yellow in color submitted for light microscopy.Biopsy #2: measures 2.0 x 0.1 x 0.1 cm; tannish yellow in color submitted for light microscopy.Biopsy #3: measures 2.0 x 0.1 x 0.1 cm; tannish yellow in color submitted for Iight microscopy.Biopsy #4: measures 2.0 x 0.1 x 0.1 cm; tannish yellow in color submitted for immunofluorescence.Biopsy #5: measures 2.0 x 0.1 x 0.1 cm; tannish yellow in color submitted for immunofluorescence.Biopsy #6: measures 1.6 x 0.1 x 0.1 cm; tannish yellow in color submitted for electron microscopy.Performed By: #### [id number] ####[facility] ([facility])[address] [place], [place] [address]BCO AP IHCNormalUniversPremier Health Atrium Medical Center Comment on above:Result Comment: C4d focal positive C4d. See noteCD3; scattered CD3 positive cells.Control appropriately reactive.Performed By: #### [id number] ####[facility] ([facility])[address] [place], [place] [address]MNU AP IMMUNOFLUORESCENCE RESULTSNormalUniversPremier Health Atrium Medical CenterComment on above:Result Comment: Negative for IgG, IgA, IgM, C3, C1q, fibrinogen, albumin, [place], Lambda light chains and C4d.Performed By: #### [id number] ####[facility] ([facility])[address] [facility], [place] [address]NLA AP INTRAOPERATIVE CONSULTATION A. Kidney.[facility] HospitalComment on above:Result Comment: Immediate adequacy was performed by Sadiq Mcneal, PH.D.Biopsy #1: InadequateBiopsy #2: InadequateBiopsy #3: AdequateBiopsy #4: InadequateBiopsy #5: AdequateBiopsy #6: AdequatePerformed By: #### [id number] ####[facility] ([facility])[address] [place], [place] [address]HSC AP MICROSCOPIC DESCRIPTION Microscopic examination performed.NormalUnUniversity Hospitals Beachwood Medical Center Comment on above:Performed By: #### [id number] ####[facility] ([facility])[address] [place], [place] [address]GQY AP REPORT FINAL DIAGNOSIS NARRATIVEOhioHealth Southeastern Medical CenterComment on above:Result Comment: Revised diagnosis:Renal allograft biopsy with: - 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 See noteRenal allograft biopsy with:Focal acute tubular injury with vacuolation.Focal calcification suggestive of drug effect.Glomerular changes suggestive of transplant glomerulopathy.Amendment electronically signed by Rosemarie Khoury MD on 10/10/2024 at 1619 EDTAmendment electronically signed by Rosemarie Khoury MD on 10/09/2024 at 1553 EDT at 1131 EDTCorrected result: Previously reported on 10/09/2024 at 1527 EDT.Performed By: #### [id number] ####[facility] ([facility])[address] [place], [place] [address]UAY AP SPECIAL STAINSNoal [facility] Par[facility] Medical CenterComment on above:Result Comment: Trichrome stain: no fibrosis.PAS: No changes.Ojeda stain: No changes.BK stain negati veControl appropriately reactive.Corrected result: Previously reported on 10/09/2024 at 1553 EDT.Performed By: #### [id number] ####[facility] ([facility])[address] [place], [place] [address]HGOPFMBBUqx 71-46-4290Dfwqfxhtv [Mass/Vol]2.4 mg/dLNormal1.9-2.7University [facility] Medical CenterComment on above:Performed By: #### [id number] ####[facility] ([facility])[address] [place] [place] [address]OQYMOTXJFZgc 74-45-3129Mggesgcwm [Mass/Vol]3.1 mg/dLNormal 2.5-5.0UnUniversity Hospitals Beachwood Medical CenterComment on above:Performed By: #### [id number] ####[facility] ([facility])[address] [place] [place] [address]KPNPXNFXW on 99-81-6293Mvonpzcds [Moles/Vol]5.0 mmol/LNormal3.5-5.1UnUniversity Hospitals Beachwood Medical CenterComment on above:Performed By: #### [id number] ####[facility]AL [facility])[address] [place] [address]LUIGANJ-YGPqw 94-04-8551WXV IN PPP BY COAGULATION ASSAY1.78Jvie4.90-1.10UnUniversity Hospitals Beachwood Medical CenterComment on above:Result Comment: ACCCP RECOMMENDED INR FOR WARFARIN THERAPY CONDITION INRPROPHYLAXIS OF VENOUS THROMBOSIS 2-3(HIGH-RISK SURGERY)TREATMENT OF VENOUS THROMBOSIS 2-3TREATMENT OF PULMONARY EMBOLISM 2-3PREVENTION OF SYSTEMIC EMBOLISM: 2-3 ACUTE MYOCARDIAL INFARCTION TISSUE HEART VALVES VALVULAR HEART DISEASE ATRIAL FIBRILLATION RECURRENT SYSTEMIC EMBOLISMMECHANICAL HEART VALVE 2.5-3.5 FROM: ORAL ANTICOAGULANTS. MECHANISM OF ACTION, CLINICAL EFFECTIVENESS, AND OPTIMAL THERAPE UTIC RANGE. CHEST 1995;108:231S-246S.Performed By: #### [id number] ####[facility] ([facility])[address] [place] [address]VBQXIXLXOEC TIME (PT) IN PPP BY COAGULATION ASSAY15.3 QsuvdveMaau51.3-14.8[facility] CenterCombeaumont hospital on above:Performed By: #### [id number] ####[facility] ([facility])[address], [place] [address]JJMVAC ANTIGEN CLASS Ion 10-07-2024 CLASS I SPECIFICITY JUSTEN:3 B:7NormalUniversPremier Health Atrium Medical CenterCombeaumont hospital on above:Performed By: #### [id number] ####[facility] TISSUE TYPING (HISTOTRAC)[address] [place] [address] USACLASS I TESTED [id number] Township District Memorial HospitalCombeaumont hospital on above:Performed By: #### [id number] ####[facility] TISSUE TYPING (HISTOTRAC)[address] [place] [address] USASINGLE ANTIGEN CLASS 1 TEST METHODClass I Single AntigenAdams County HospitalCombeaumont hospital on above:Performed By: #### [id number] ####[facility] TISSUE TYPING (HISTOTRAC)[address] [place] [address] USASINGLE ANTIGEN CLASS IIon 67-28-7377THYOH II SPECIFICITY ABDR:15 DQ:6NormalUniSt. Vincent HospitalCombeaumont hospital on above:Performed By: #### [id number] ####[facility] TISSUE TYPING (HISTOTRAC)[address] [place] [address] USACLASS II TESTED DATE [id number] County HospitalComment on above: Performed By: #### [id number] ####[facility] TISSUE TYPING (HISTOTRAC)[address] [place] [address] USASIGNED BYSigned by Terrance Figueroa CHT([facility]), [facility] [place] Transplant ImmunologyNoRegency Hospital Cleveland EastCombeaumont hospital on above:Performed By: #### [id number] ####[facility] TISSUE TYPING (HISTOTRAC)[address] [place] [address] USAResult Comment: Class I Antigen Microbeads Performed By: #### [id number] ####[facility] TISSUE TYPING (HISTOTRAC)[address] [place] [address] USASINGLE ANTIGEN CLASS 2 TEST METHODClass II Single Antigen NormalUnUniversity Hospitals Beachwood Medical CenterComment on above:Result Comment: Class II Antigen MicrobeadsPerformed By: #### [id number] ####[facility] TISSUE TYPING (HISTOTRAC)[address] [place] [address] USATACROLIMUS LEVELon 10-07-2024 Tacrolimus (Bld) [Mass/Vol]9.3 ng/mLNormal5.0-20.0UnUniversity Hospitals Beachwood Medical CenterComment on above:Result Comment: The [employer] Tacrolimus assay is a delayed one-step immunoassay for the quantitative determination of tacrolimus in human whole blood using the chemiluminescent microparticle immunoassay (CMIA) technology with flexible assay protocols, referred to as Chemiflex.Performed By: #### [id number] ####[facility] ([place]AKER[place] [address] TSH3 REFLEX TO FT4on 21-69-2837UEOELCSWVWT (MIU/L) IN SER/PLAS BY DETECTION LIMIT <= 0.05 MIU/L0.47 mIU/LNormal0.34-5.60UnUniversity Hospitals [facility] Medical Center Comment on above:Performed By: #### [id number] ####[facility] ([facility]ANNER)[address] [place], [place] [address]zn 09-11-150794GeabfbEnprgtfjly of [facility]edo Medical CenterBILIRUBIN, DIRECTon 84-94-4554Vjaghtknn [Mass/Vol]0.1 mg/dLNormal0-0.2 [facility]ma Medical CenterComment on above:Performed By: #### [id number] ####[facility] ([facility])[address] [place], [place] [address]QXH WITH AUTO DIFFERENTIALon 93-29-6978Qgjjwxplu (Bld) [#/Vol]0.03 10*3/uLNormal0.00-0.20 [facility] Medical CenterComment on above:Performed By: #### [id number] ####[facility] ([facility])[address] [place] [address], [place] [address]Cfmscrkaa/100 WBC (Bld)1.0 %Normal0.0-1.0UnUniversity Hospitals Beachwood Medical CenterComment on above: Performed By: #### [id number] ####[facility] ([facility])[address] [place] [address]Hvuwxecfqjb (Bld) [#/Vol]0.20 10*3/uLNormal0.00-0.50 [facility] Medical CenterComment on above:Performed By: #### [id number] ####[facility] ([facility])[address] [address]Ukxpbdluvtc/100 WBC (Bld)6.8 %High0.0-6.0UnUniversity Hospitals Beachwood Medical CenterComment on above: Performed By: #### [id number] ####[facility] ([facility])[address], [place] [address]Iyysfnkeqjz distribution width (RBC) [Ratio]14.0 %Normal 11.5-15.0UnUniversity Hospitals Beachwood Medical CenterComment on above:Performed By: #### [id number] ####[facility] ([facility])[address] [place] [address] ERYTHROCYTE MEAN CORPUSCULAR HEMOGLOBIN CONCENTRATION (G/DL) BY NIRTHURYI93.6 g/iVFwozbj90.0-35.0UnUniversity Hospitals Beachwood Medical CenterComment on above:Performed By: #### [id number] ####[facility] ([facility])[address], [place] [address]Crywyeanla (Bld) [Volume fraction]36.5 %Low39.0-50.0UnUniversity Hospitals Beachwood Medical CenterComment on above:Performed By: #### [id number] ####[facility] ([facility])[address], [place] [address]Ofemdwwopd (Bld) [Mass/Vol]11.9 g/dL Low13.0-17.0UnUniversity Hospitals Beachwood Medical CenterComment on above:Performed By: #### [id number] ####[facility] ([facility])[address] [place] [address] Immature granulocytes (Bld) [#/Vol]0.03 10*3/uLNormal0.00-0.20UnUniversity Hospitals Beachwood Medical CenterComment on above:Performed By: #### [id number] ####[facility] ([facility])[address] [place], [place] [address]Hmdfdbxa granulocytes/100 WBC (Bld)1.0 %Normal0.0-1.0UnUniversity Hospitals Beachwood Medical CenterComment on above: Performed By: #### [id number] ####[facility] ([facility])[address] [place], [place] [address]Xcdbealmucq (Bld) [#/Vol]0.08 10*3/uLLow1.20-4.00UnUniversity Hospitals Beachwood Medical CenterComment on above:Performed By: #### [id number] ####[facility] ([facility])[address] [place], [place] [address]Jskwrixwiiu/100 WBC (Bld) 2.7 %Low20.0-45.0UnUniversity Hospitals Beachwood Medical CenterComment on above:Performed By: #### [id number] ####[facility] ([facility])[address] [place], [place] [address]BOK (RBC) [Entitic mass]32.4 vfTbghzd78.0-33.0UnUniversity Hospitals Beachwood Medical CenterComment on above:Performed By: #### [id number] ####[facility] ([facility])[address] [place], [place] [address]CEX (RBC) [Entitic vol]99.5 fLHigh 82.0-98.0UnUniversity Hospitals Beachwood Medical CenterComment on above:Performed By: #### [id number] ####[facility] ([facility])[address] [place] [address] Monocytes (Bld) [#/Vol]0.29 10*3/uLNormal0.10-1.00UnUniversity Hospitals Beachwood Medical CenterComment on above:Performed By: #### [id number] ####[facility] ([facility])[address] [place] [address]Xuuwftswx/100 WBC (Bld)9.8 %Normal 5.0-12.0[facility] Medical CenterComment on above:Performed By: #### [id number] ####[facility] ([facility])[address] [place] [address] Neutrophils (Bld) [#/Vol]2.33 10*3/uLNormal1.60-7.60UnUniversity Hospitals Beachwood Medical CenterComment on above:Performed By: #### [id number] ####[facility] ([facility])[address] [place] [address]Jemaznugwaw/100 WBC (Bld)78.7 %High 40.0-72.0UnUniversity Hospitals Beachwood Medical CenterComment on above:Performed By: #### [id number] ####[facility] ([facility])[address] [place] [address]VXZB (PER 100 WBCS) BY AUTOMATED COUNT0.0 %Oidpru2PptokbctefUniversity Hospitals Beachwood Medical Center Comment on above:Performed By: #### [id number] ####[facility] ([facility])[address] [place] [address]AVJNRHKLL (10*3/UL) IN BLOOD AUTOMATED PSHFK700 10*3/xQAxecdu343-579MfbayfoiwlUniversity Hospitals Beachwood Medical CenterComment on above: Performed By: #### [id number] ####[facility] ([facility])[address] [place] [address]VFX (Bld) [#/Vol]3.67 10*6/uLLow4.20-5.70UnUniversity Hospitals Beachwood Medical CenterComment on above:Performed By: #### [id number] ####[facility] ([facility])[address] [place] [address]MRI (Bld) [#/Vol]2.96 10*3/uLLow 4.00-10.60UnUniversity Hospitals Beachwood Medical CenterComment on above:Performed By: #### [id number] ####[facility] ([facility])[address] [place] [address] COMPREHENSIVE METABOLIC PANELon 90-60-3087Fhbpvjs [Mass/Vol]3.7 g/dLNormal 3.5-5.7UnUniversity Hospitals Beachwood Medical CenterComment on above:Performed By: #### [id number] ####[facility] ([facility])[address], [place] [address]TDM [Catalytic activity/Vol]81 U/DVrwecr40-173IbtedfvkntUniversity Hospitals Beachwood Medical Center Comment on above:Performed By: #### [id number] ####[facility] ([facility])[address], [place] [address]YDW [Catalytic activity/Vol]15 U/LNormal7-52 [facility] Medical CenterComment on above:Performed By: #### [id number] ####[facility] ([facility])[address], [place] [address]Cahjo gap [Moles/Vol]11 mmol/LNormal7-20UnUniversity Hospitals Beachwood Medical CenterComment on above:Performed By: #### [id number] ####[facility] ([facility])[address], [place] [address]QHH [Catalytic activity/Vol]20 U/HBgionu60-25WxhybdfpwqUniversity Hospitals Beachwood Medical CenterComment on above:Performed By: #### [id number] ####[facility] ([facility])[address], [place] [address]Jltjrvhvv [Mass/Vol]0.5 mg/dL Normal0.3-1.0UnUniversity Hospitals Beachwood Medical CenterComment on above:Performed By: #### [id number] ####[facility] ([facility])[address] [place] [address] Calcium [Mass/Vol]8.8 mg/dLNormal8.6-10.3Un[facility] Comment on above:Performed By: #### [id number] ####[facility] ([facility])[address] [place], [place] [address]Bonfzsbr [Moles/Vol]108 mmol/ICvjp23-334ConxqycqhfUniversity Hospitals Beachwood Medical CenterComment on above:Performed By: #### [id number] ####[facility] ([facility])[address] [place] [address]WX7 [Moles/Vol]22 mmol/L Lrmozq34-67EipijlgaohUniversity Hospitals Beachwood Medical CenterComment on above:Performed By: #### [id number] ####[facility] ([facility])[address] [place] [address] Creatinine [Mass/Vol]3.31 mg/dLHigh0.70-1.30UnUniversity [facility]als [facility] Center Comment on above:Performed By: #### [id number] ####[facility] ([facility])[address], [place] [address]REQLQTDJIL FILTRATION RATE ML/MIN/1.73 SQ M.HLEZIWYZN42.2 mL/min/1.73m*2Low>60.0UnUniversity Hospitals Beachwood Medical CenterComment on above:Result Comment: The [facility]???s estimated glomerular filtration rate (eGFR) will no [...] potential consequences that do not disproportionately affect anyone group of individuals.Performed By: #### [id number] ####[facility] ([facility])[address], [place] [address]Yjlrjex [Mass/Vol]84 mg/cBOoscbz00-379 [facility] CenterComment on above:Performed By: #### [id number] ####[facility] ([facility])[address], [place] [address]Llcchswqr [Moles/Vol]4.3 mmol/LNormal3.5-5.1UnUniversity Hospitals Beachwood Medical CenterComment on above:Performed By: #### [id number] ####[facility] ([facility])[address], [place] [address]Vskqvoz [Mass/Vol]6.1 g/dLNormal6.0-8.3UnUniversity Hospitals Beachwood Medical CenterComment on above:Performed By: #### [id number] ####[facility] ([facility])[address] [place] [address]Tpibwn [Moles/Vol]137 mmol/LNormal 136-145UnUniversity Hospitals Beachwood Medical CenterComment on above:Performed By: #### [id number] ####[facility] ([facility])[address] [place] [address]Gtxl nitrogen [Mass/Vol]36 mg/dLHigh7-25UnUniversity Hospitals Beachwood Medical CenterComment on above:Performed By: #### [id number] ####[facility] ([facility])[address] [place] [address]YMYM NITROGEN/CREATININE (MASS RATIO) IN SER/PLAS10.9Noal [facility] Medical CenterComment on above:Performed By: #### [id number] ####[facility] ([facility])[address] [place] [address]FN GUIDED PERCUTANEOUS BIOPSY RENAL RIGHTon 19-46-8231CX GUIDED PERCUTANEOUS BIOPSY RENAL RIGHTInvalid Interpretation CodeUnUniversity Hospitals Beachwood Medical CenterHPon 49-58-4117CQEdvafmRziiofatpz of [facility] Medical CenterLabon 52-01-9216WccTcmmll [facility] Medical CenterMAGNESIUMon 36-74-6715Mjvwmmxoo [Mass/Vol]2.1 mg/dLNormal1.9-2.7UnUniversity Hospitals Beachwood Medical CenterComment on above:Performed By: #### [id number] ####[facility] ([facility])[address] [place] [address]HWXCNKMGAYnx 43-40-7448Ybihlnoqd [Mass/Vol]3.9 mg/dLNormal2.5-5.0UnUniversity Hospitals Beachwood Medical CenterComment on above:Performed By: #### [id number] ####[facility] ([facility])[address] [place] [address]ACHZ GLUCOSE METER UNSOLICITED RESULTSon 37-70-9538Vgvityo [Mass/Vol]148 mg/eAZbha55-015VruybsoywgUniversity Hospitals Beachwood Medical CenterComment on above:Order Comment: Waived Testing in the ED is performed under the ED CLIA certificate #[id number].Result Comment: [email or web address] Performed By: #### [id number] ####[facility] ([facility])[address] [place]ERK[place], [place] [address]RDLNLQYBWO LEVELon 07-31-36[address]Lsdpavnjlz (Bld) [Mass/Vol]6.0 ng/mLNormal5.0-20.0UnUniversity Hospitals Beachwood Medical CenterComment on above:Result Comment: The [employer] Tacrolimus assay is a delayed one-step immunoassay for the quantitative determination of tacrolimus in human whole blood using the chemiluminescent microparticle immunoassay (CMIA) technology with flexible assay protocols, referred to as Chemiflex.Performed By: #### [id number] ####[facility] ([facility])[address] [facility] [place] [address]ZKBT ACIDon 10-06-2024 Magnesium [Mass/Vol]6.8 mg/dLNormal4.4-7.6Un[facility] Comment on above:Performed By: #### [id number] ####[facility] ([facility])[address] [facility] [place], [place] [address]NCWDDLTYJY WITH REFLEX CULTUREon 10-06-2024 BILIRUBIN, TOTAL PRESENCE IN URINENegativeNormalNegativeUnUniversity Hospitals Beachwood Medical CenterComment on above:Order Comment: Microscopics not performed on urines with negative chemical reactions unless requested on original order. Performed By: #### [id number] ####[facility] ([facility])[address] [facility] [place], [place] [address]Hemfcwd (U)ClearNormalClearUnUniversity Hospitals Beachwood Medical CenterComment on above:Order Comment: Microscopics not performed on urines with negative chemical reactions unless requested on original order.Performed By: #### [id number] ####[facility] ([facility])[address] [place] [address] Color (U)Light-YellowNormalColorless, Yellow, Light-YellowUnUniversity Hospitals Beachwood Medical CenterComment on above:Order Comment: Microscopics not performed on urines with negative chemical reactions unless requested on original order. Performed By: #### [id number] ####[facility] ([facility])[address] [place], [place] [address]IENSGIY (MG/DL) IN URINENormalNormalNormalUniversPremier Health Atrium Medical CenterComment on above:Order Comment: Microscopics not performed on urines with negative chemical reactions unless requested on original order. Performed By: #### [id number] ####[facility] ([facility])[address] [place], [place] [address]OBNZCNZBDN PRESENCE IN URINENegativeNormalNegativeUnUniversity Hospitals Beachwood Medical CenterComment on above:Order Comment: Microscopics not performed on urines with negative chemical reactions unless requested on original order.Performed By: #### [id number] ####[facility] ([facility])[address] [place], [place] [address]Upgmleq Ql (U)NegativeNormalNegativeUnUniversity Hospitals Beachwood Medical CenterComment on above:Order Comment: Microscopics not performed on urines with negative chemical reactions unless requested on original order. Performed By: #### [id number] ####[facility] ([facility])[address] [place], [place] [address]LEAQSZKTT ESTERASE PRESENCE IN URINE BY TEST STRIPNegative NormalNegativeUnUniversity Hospitals Beachwood Medical CenterComment on above:Order Comment: Microscopics not performed on urines with negative chemical reactions unless requested on original order.Performed By: #### [id number] ####[facility] ([facility])[address] [place], [place] [address]HNDQCCK PRESENCE IN URINENegative NormalNegativeUniversity Hospitals Parma Medical CenterComment on above:Order Comment: Microscopics not performed on urines with negative chemical reactions unless requested on original order.Performed By: #### [id number] ####[facility] ([facility])[address] [place], [place] [address]pN (U)6.5 [pH]Normal5.0-8.0UnUniversity Hospitals Beachwood Medical CenterComment on above:Order Comment: Microscopics not performed on urines with negative chemical reactions unless requested on original order.Performed By: #### [id number] ####[facility] ([facility])[address] [place] [address]Gdpzjvr (U) [Mass/Vol]NegativeNormalNegative [facility] Medical CenterComment on above:Order Comment: Microscopics not performed on urines with negative chemical reactions unless requested on original order.Performed By: #### [id number] ####[facility] ([facility])[address] [place] [address]Oaoysxnj gravity (U) [Rel density]1.007Low 1.010-1.030UnUniversity Hospitals Beachwood Medical CenterComment on above:Order Comment: Microscopics not performed on urines with negative chemical reactions unless requested on original order.Performed By: #### [id number] ####[facility] ([facility])[address] [place] [address]DCKLYKKGMXVY (MG/DL) IN URINENormal NormalNormalUniversPremier Health Atrium Medical CenterComment on above:Order Comment: Microscopics not performed on urines with negative chemical reactions unless requested on original order.Performed By: #### [id number] ####[facility] ([facility])[address] [place] [address]ESIPNULKS, DIRECTon 09-27-2024 Magnesium [Mass/Vol]0.2 mg/dLNormal0-0.2UnUniversity [facility]als [facility] Comment on above:Performed By: #### [id number] ####[facility] ([facility])[address] [place] [address]CSY WITH AUTO DIFFERENTIALon 91-38-2272Pqzgdbovy (Bld) [#/Vol]0.04 10*3/uLNormal0.00-0.20UnUniversity [facility]als [facility] Center Comment on above:Performed By: #### [id number] ####[facility] ([facility])[address] [place] [place] [address]Cwtdeaaby/100 WBC (Bld)0.8 %Normal0.0-1.0UnUniversity Hospitals Beachwood Medical CenterComment on above:Performed By: #### [id number] ####[facility] ([facility])[address] [place], [place] [address]Lboyouqseju (Bld) [#/Vol] 0.21 10*3/uLNormal0.00-0.50UnUniversity Hospitals Beachwood Medical CenterComment on above: Performed By: #### [id number] ####[facility] ([facility])[address] [place], [place] [address]Xnvfbqawfga/100 WBC (Bld)4.4 %Normal0.0-6.0UnUniversity Hospitals Beachwood Medical CenterComment on above:Performed By: #### [id number] ####[facility] ([facility])[address] [place], [place] [address]Vgtfnmrciiz distribution width (RBC) [Ratio]14.2 %Wrgazp95.5-15.0UnUniversity [facility]als [facility] Comment on above:Performed By: #### [id number] ####[facility] ([facility])[address] [place], [place] [address]RVDZJOMYDQU MEAN CORPUSCULAR HEMOGLOBIN CONCENTRATION (G/DL) BY IFRMJDKOV61.0 g/oTVzbhom35.0-35.0UnUniversity Hospitals Beachwood Medical CenterComment on above:Performed By: #### [id number] ####[facility] ([facility])[address] [place], [place] [address]Ipnoijtjve (Bld) [Volume fraction]42.4 %Ttasqc42.0-50.0UnUniversity Hospitals Beachwood Medical CenterComment on above:Performed By: #### [id number] ####[facility] ([facility])[address] [place], [place] [address]Cuwjtblpzt (Bld) [Mass/Vol]14.0 g/mHSrdcmy37.0-17.0UnUniversity Hospitals Beachwood Medical CenterComment on above:Performed By: #### [id number] ####[facility] ([facility])[address] [place], [place] [address]Hyvjichx granulocytes (Bld) [#/Vol] 0.22 10*3/uLHigh0.00-0.20UnUniversity Hospitals Beachwood Medical CenterComment on above: Performed By: #### [id number] ####[facility] ([facility])[address] [place], [place] [address]Coschyiu granulocytes/100 WBC (Bld)4.6 %High0.0-1.0UnUniversity Hospitals Beachwood Medical CenterComment on above:Performed By: #### [id number] ####[facility] ([facility])[address] [place], [place] [address]Jrdeoecffdi (Bld) [#/Vol] 0.05 10*3/uLLow1.20-4.00UnUniversity Hospitals Beachwood Medical CenterComment on above: Performed By: #### [id number] ####[facility] ([facility])[address] [place], [place] [address]Ecufwlxtkiw/100 WBC (Bld)1.0 %Low20.0-45.0UnUniversity Hospitals Beachwood Medical CenterComment on above:Performed By: #### [id number] ####[facility] ([facility])[address] [place], [place] [address]XPX (RBC) [Entitic mass] 32.4 rxNklegb87.0-33.0UnUniversity Hospitals Beachwood Medical CenterComment on above: Performed By: #### [id number] ####[facility] ([facility])[address] [place], [place] [address]SAY (RBC) [Entitic vol]98.1 gLEyox66.0-98.0UnUniversity Hospitals Beachwood Medical CenterComment on above:Performed By: #### [id number] ####[facility] ([facility])[address] [place], [place] [address]Uztfvzhbl (Bld) [#/Vol] 0.39 10*3/uLNormal0.10-1.00UnUniversity Hospitals Beachwood Medical CenterComment on above: Performed By: #### [id number] ####[facility] ([facility])[address] [place], [place] [address]Pftujznye/100 WBC (Bld)8.1 %Normal5.0-12.0UnUniversity Hospitals Beachwood Medical CenterComment on above:Performed By: #### [id number] ####[facility] ([facility])[address] [place] [address]Runwwlmkhyw (Bld) [#/Vol] 3.90 10*3/uLNormal1.60-7.60UnUniversity Hospitals Beachwood Medical CenterComment on above: Performed By: #### [id number] ####[facility] ([facility])[address] [place] [address]Zuzjtblfrui/100 WBC (Bld)81.1 %High40.0-72.0UnUniversity Hospitals Beachwood Medical CenterComment on above:Performed By: #### [id number] ####[facility] ([facility])[address] [place] [address]JWAR (PER 100 WBCS) BY AUTOMATED COUNT0.0 %Pflxud7KeknfvgrsoUniversity Hospitals Beachwood Medical CenterComment on above: Performed By: #### [id number] ####[facility] ([facility])[address] [place] [address]AOORURKGJ (10*3/UL) IN BLOOD AUTOMATED TAWEF166 10*3/uLNormal 150-400UnUniversity Hospitals Beachwood Medical CenterComment on above:Performed By: #### [id number] ####[facility] ([facility])[address] [place] [address]DLX (Bld) [#/Vol]4.32 10*6/uLNormal4.20-5.70UnUniversity Hospitals Beachwood Medical Center Comment on above:Performed By: #### [id number] ####[facility] ([facility])[address] [place], [place] [address]MPX (Bld) [#/Vol]4.81 10*3/uLNormal4.00-10.60 [facility] Parma Medical CenterComment on above:Performed By: #### [id number] ####[facility] ([facility])[address] [place], [place] [address]BSDHYCPHDOWQD METABOLIC PANELon 21-70-8757Imhheic [Mass/Vol]4.1 g/dLNormal3.5-5.7UnUniversity Hospitals Beachwood Medical CenterComment on above:Performed By: #### [id number] ####[facility] ([facility])[address] [place] [address]SLR [Catalytic activity/Vol]100 U/UOjfcvb79-620WhptcncwguUniversity Hospitals Beachwood Medical CenterComment on above:Performed By: #### [id number] ####[facility] ([facility])[address] [place] [address]EHD [Catalytic activity/Vol]11 U/LNormal7-52UnUniversity Hospitals Beachwood Medical CenterComment on above:Performed By: #### [id number] ####[facility] ([facility])[address] [place] [address]Acdnu gap [Moles/Vol]11 mmol/L Normal7-20UnUniversity Hospitals Beachwood Medical CenterComment on above:Performed By: #### [id number] ####[facility] ([facility])[address] [place], [place] [address]OER [Catalytic activity/Vol]17 U/HNbpldz93-62JkzmyokrsaUniversity Hospitals Beachwood Medical Center Comment on above:Performed By: #### [id number] ####[facility] ([facility])[address] [place], [place] [address]Bogntyjij [Mass/Vol]0.6 mg/dLNormal0.3-1.0 [facility] Parma Medical CenterComment on above:Performed By: #### [id number] ####[facility] ([facility])[address] [place], [place] [address]Klsdqqm [Mass/Vol]9.3 mg/dLNormal8.6-10.3UnUniversity Hospitals Beachwood Medical CenterComment on above:Performed By: #### [id number] ####[facility] ([facility])[address] [place] [address]Jzbiyxjb [Moles/Vol]110 mmol/AYcdr68-537ApaunvmaatUniversity Hospitals Beachwood Medical CenterComment on above:Performed By: #### [id number] ####[facility] ([facility])[address] [place], [place] [address]FN2 [Moles/Vol]22 mmol/VNgevxe24-01 [facility] Par[facility] Medical CenterComment on above:Performed By: #### [id number] ####[facility] ([facility])[address] [place] [address]Ihbskzmdzq [Mass/Vol]2.07 mg/dLHigh0.70-1.30UnUniversity Hospitals Beachwood Medical CenterComment on above:Performed By: #### [id number] ####[facility] ([facility])[address] [facility] [place] [place] [address]AMDWKRKREB FILTRATION RATE ML/MIN/1.73 SQ M.TPJORUMCM81.0 mL/min/1.73m*2Low>60.0UnUniversity Hospitals Beachwood Medical CenterComment on above:Result Comment: The [facility]???s estimated glomerular filtration rate (eGFR) will no [...] potential consequences that do not disproportionately affect anyone group of individuals.Performed By: #### [id number] ####[facility] ([facility])[address] [place], [place] [address]Etziddd [Mass/Vol]82 mg/vJVjauha34-425SegqfvhnhpUniversity Hospitals Beachwood Medical CenterComment on above:Performed By: #### [id number] ####[facility] ([facility])[address] [place], [place] [address]Galvzgyfj [Moles/Vol]4.4 mmol/LNormal3.5-5.1UnUniversity Hospitals Beachwood Medical CenterComment on above:Performed By: #### [id number] ####[facility] ([facility])[address] [place] [address] Protein [Mass/Vol]6.4 g/dLNormal6.0-8.3UnUniversity Hospitals Beach[facility] Medical Center Comment on above:Performed By: #### [id number] ####[facility] ([facility])[address] [place] [address]Ssvglg [Moles/Vol]139 mmol/KHvxxdx696-676UdflzxgbcaUniversity Hospitals Beachwood Medical CenterComment on above:Performed By: #### [id number] ####[facility] ([facility])[address] [place] [address]Zqgg nitrogen [Mass/Vol] 24 mg/dLNormal7-25UnUniversity Hospitals Beachwood Medical CenterComment on above:Performed By: #### [id number] ####[facility] ([facility])[address] [place] [address] UREA NITROGEN/CREATININE (MASS RATIO) IN SER/PLAS11.6NormalUniSt. Vincent HospitalComment on above:Performed By: #### [id number] ####[facility] ([facility])[address] [place] [address]Akmjl 91-70-2009BbdVcsbthFkfpeqaeej of [place] Medical CenterMAGNESIUMon 80-74-9435Uinleybnn [Mass/Vol]1.9 mg/dLNormal 1.9-2.7UnUniversity Hospitals Beachwood Medical CenterComment on above:Performed By: #### [id number] ####[facility] ([facility])[address] [place] [address] PHOSPHORUSon 78-71-8530Xvfmeomeq [Mass/Vol]3.2 mg/dLNormal2.5-5.0UnUniversity Hospitals Beachwood Medical CenterComment on above:Performed By: #### [id number] ####[facility] ([facility])[address] [facility] [place] [address]VOPEQTUPKM LEVELon 60-79-2955Gwtqgsaaze (Bld) [Mass/Vol]3.4 ng/mLLow5.0-20.0UnUniversity Hospitals Beachwood Medical CenterComment on above:Result Comment: The [employer] Tacrolimus assay is a delayed one-step immunoassay for the quantitative determination of tacrolimus in human whole blood using the chemiluminescent microparticle i mmunoassay (CMIA) technology with flexible assay protocols, referred to as Chemiflex.Performed By: #### [id number] ####[facility] ([facility])[address] [place], [place] [address]AALI ACIDon 30-90-7278Aowwstape [Mass/Vol]5.0 mg/dLNormal 4.4-7.6UnUniversity Hospitals Beachwood Medical CenterComment on above:Performed By: #### [id number] ####[facility] ([facility])[address] [place], [place] [address]gr 38-68-659345LvyjgbQfgcbuiwqq Protestant HospitalBILIRUBIN, DIRECTon 11-04-8507Bwchxgrmv [Mass/Vol]0.2 mg/dLNormal0-0.2UnUniversity Hospitals Beachwood Medical CenterComment on above:Performed By: #### [id number] ####[facility] ([facility])[address] [place], [place] [address]LIM WITH AUTO DIFFERENTIALon 34-40-1114Xbdousjbs (Bld) [#/Vol]0.04 10*3/uLNormal0.00-0.20UnUniversity Hospitals Beachwood Medical CenterComment on above:Performed By: #### [id number] ####[facility] ([facility])[address] [place], [place] [address]Dddhesjig/100 WBC (Bld)0.8 %Normal 0.0-1.0UnUniversity Hospitals Beachwood Medical CenterComment on above:Performed By: #### [id number] ####[facility] ([facility])[address] [place] [address] Eosinophils (Bld) [#/Vol]0.29 10*3/uLNormal0.00-0.50UnUniversity Hospitals Beachwood Medical CenterComment on above:Performed By: #### [id number] ####[facility] ([facility])[address] [place], [place] [address]Cprfsaohlka/100 WBC (Bld)5.7 %Normal 0.0-6.0UnUniversity Hospitals Beachwood Medical CenterComment on above:Performed By: #### [id number] ####[facility] ([facility])[address] [place] [address] Erythrocyte distribution width (RBC) [Ratio]14.6 %Mncehl97.5-15.0UnUniversity Hospitals Beachwood Medical CenterComment on above:Performed By: #### [id number] ####[facility] ([facility])[address] [place], [place] [address]BHVXJMXLOVX MEAN CORPUSCULAR HEMOGLOBIN CONCENTRATION (G/DL) BY LJBMKKKAI25.9 g/oTNnjdtn51.0-35.0 [facility] Medical CenterComment on above:Performed By: #### [id number] ####[facility] ([facility])[address] [place], [place] [address]Xwupoikusb (Bld) [Volume fraction]42.2 %Thedbp03.0-50.0UnUniversity [facility]als [facility] Center Comment on above:Performed By: #### [id number] ####[facility] ([facility])[address] [place], [place] [address]Midtyzmxpv (Bld) [Mass/Vol]13.9 g/qWXnrdok80.0-17.0 [facility] CenterComment on above:Performed By: #### [id number] ####[facility] ([facility])[address] [place], [place] [address]Wpuknasq granulocytes (Bld) [#/Vol]0.03 10*3/uLNormal0.00-0.20UnUniversity Hospitals Beachwood Medical CenterComment on above:Performed By: #### [id number] ####[facility] ([facility])[address] [place], [place] [address]Wwbplfga granulocytes/100 WBC (Bld)0.6 %Normal0.0-1.0UnUniversity Hospitals Beachwood Medical CenterComment on above:Performed By: #### [id number] ####[facility] ([facility])[address] [place] [address] Lymphocytes (Bld) [#/Vol]0.05 10*3/uLLow1.20-4.00UnUniversity Hospitals Beachwood Medical CenterComment on above:Performed By: #### [id number] ####[facility] ([facility])[address] [place] [address]Gldrwntbdfu/100 WBC (Bld)1.0 %Low 20.0-45.0UnUniversity Hospitals Beachwood Medical CenterComment on above:Performed By: #### [id number] ####[facility] ([facility])[address] [place] [address]OIJ (RBC) [Entitic mass]32.8 gaNwexut49.0-33.0UnUniversity [facility]als [facility] Center Comment on above:Performed By: #### [id number] ####[facility] ([facility])[address] [place], [place] [address]TNO (RBC) [Entitic vol]99.5 tLHvix57.0-98.0 [facility] Medical CenterComment on above:Performed By: #### [id number] ####[facility] ([facility])[address] [place], [place] [address]Gjufmbbyz (Bld) [#/Vol]0.53 10*3/uLNormal0.10-1.00UnUniversity Hospitals Beachwood Medical CenterComment on above:Performed By: #### [id number] ####[facility] ([facility])[address] [place], [place] [address]Dteablcyo/100 WBC (Bld)10.5 %Normal5.0-12.0UnUniversity Hospitals Beachwood Medical CenterComment on above:Performed By: #### [id number] ####[facility] ([facility])[address] [place], [place] [address]Djlafotekvd (Bld) [#/Vol] 4.13 10*3/uLNormal1.60-7.60UnUniversity Hospitals Beachwood Medical CenterComment on above: Performed By: #### [id number] ####[facility] ([facility])[address] [place], [place] [address]Qaejexvfrtc/100 WBC (Bld)81.4 %High40.0-72.0UnUniversity Hospitals Beachwood Medical CenterComment on above:Performed By: #### [id number] ####[facility] ([facility])[address] [place] [address]OBVL (PER 100 WBCS) BY AUTOMATED COUNT0.0 %Rmtmhf5UfwiitrxciUniversity Hospitals Beachwood Medical CenterComment on above: Performed By: #### [id number] ####[facility] ([facility])[address] [place] [address]PCOOXFOTV (10*3/UL) IN BLOOD AUTOMATED [id number] 10*3/uLNormal 150-400UnUniversity Hospitals Beachwood Medical CenterComment on above:Performed By: #### [id number] ####[facility] ([facility])[address] [place], [place] [address]ZYH (Bld) [#/Vol]4.24 10*6/uLNormal4.20-5.70[facility] Comment on above:Performed By: #### [id number] ####[facility] ([facility])[address] [place], [place] [address]PBK (Bld) [#/Vol]5.07 10*3/uLNormal4.00-10.60 [facility] CenterComment on above:Performed By: #### [id number] ####[facility] ([facility])[address] [place], [place] [address]JKLWRKTFBFDYA METABOLIC PANELon 86-18-5608Crqibwj [Mass/Vol]4.1 g/dLNormal3.5-5.7UnUniversity Hospitals Beachwood Medical CenterComment on above:Performed By: #### [id number] ####[facility] ([facility])[address] [place], [place] [address]SXE [Catalytic activity/Vol]114 U/MYvll34-313CwvtpjwzlfUniversity Hospitals Beachwood Medical CenterComment on above:Performed By: #### [id number] ####[facility] ([facility])[address] [place], [place] [address]ZFW [Catalytic activity/Vol]11 U/LNormal7-52University of Wan Medical CenterComment on above:Performed By: #### [id number] ####[facility] ([facility])[address] [place], [place] [address]Hdeef gap [Moles/Vol]9 mmol/L Normal7-20UnUniversity Hospitals Beachwood Medical CenterComment on above:Performed By: #### [id number] ####[facility] ([facility])[address] [place], [place] [address]JRS [Catalytic activity/Vol]14 U/FChjhhj75-18BwynmaqjesUniversity Hospitals Beachwood Medical Center Comment on above:Performed By: #### [id number] ####[facility] ([facility])[address] [place], [place] [address]Ddqcnysms [Mass/Vol]0.6 mg/dLNormal0.3-1.0 [facility] CenterComment on above:Performed By: #### [id number] ####[facility] ([facility])[address] [place], [place] [address]Tptfhkj [Mass/Vol]9.4 mg/dLNormal8.6-10.3UnUniversity Hospitals Beachwood Medical CenterComment on above:Performed By: #### [id number] ####[facility] ([facility])[address] [place], [place] [address]Zghaiamd [Moles/Vol]108 mmol/CXlal03-365CftpfrfjdpUniversity Hospitals Beachwood Medical CenterComment on above:Performed By: #### [id number] ####[facility] ([facility])[address] [place], [place] [address]JX5 [Moles/Vol]26 mmol/KGdrrxx54-25 [facility] CenterComment on above:Performed By: #### [id number] ####[facility] ([facility])[address] [place], [place] [address]Tymuohwgrj [Mass/Vol]1.55 mg/dLHigh0.70-1.30UnUniversity Hospitals Beachwood Medical CenterComment on above:Performed By: #### [id number] ####[facility] ([facility])[address] [place], [place] [address]YURFBLVFHW FILTRATION RATE ML/MIN/1.73 SQ M.XWASZBEPG82.2 mL/min/1.73m*2Low>60.0UnUniversity Hospitals Beachwood Medical CenterComment on above:Result Comment: The [facility]???s estimated glomerular filtration rate (eGFR) will no [...] potential consequences that do not disproportionately affect anyone group of individuals.Performed By: #### [id number] ####[facility] ([facility])[address] [facility] [place], [place] [address]Lbwqxyh [Mass/Vol]78 mg/kQQodujz94-558ZelwyxxzpnUniversity Hospitals Beachwood Medical CenterComment on above:Performed By: #### [id number] ####[facility] ([facility])[address] [facility] [place], [place] [address]Etnanovql [Moles/Vol]3.9 mmol/LNormal3.5-5.1UnUniversity Hospitals Beachwood Medical CenterComment on above:Performed By: #### [id number] ####[facility] ([facility])[address] [place] [address] Protein [Mass/Vol]6.2 g/dLNormal6.0-8.3Un[facility]als [facility] Comment on above:Performed By: #### [id number] ####[facility] ([facility])[address] [facility] [place], [place] [address]Oqjcim [Moles/Vol]139 mmol/UQjvpig798-890EeewdwlmjoUniversity Hospitals Beachwood Medical CenterComment on above:Performed By: #### [id number] ####[facility] ([facility])[address] [facility] [place], [place] [address]Cghq nitrogen [Mass/Vol] 18 mg/dLNormal7-25UnUniversity Hospitals Beachwood Medical CenterComment on above:Performed By: #### [id number] ####[facility] ([facility])[address] [place] [address] UREA NITROGEN/CREATININE (MASS RATIO) IN SER/PLAS11.6NormalUniversPremier Health Atrium Medical CenterComment on above:Performed By: #### [id number] ####[facility] ([facility])[address] [place], [place] [address]Lzxeck-Pbuw 67-78-8717Jbslnf-UpNormal [facility] CenterLabon 17-67-6817WobWbverrBkbsjpkmfs of [place] Medical CenterMAGNESIUMon 93-58-6707Eyffxgoty [Mass/Vol]1.9 mg/dLNormal1.9-2.7 [facility] CenterComment on above:Performed By: #### [id number] ####[facility] ([facility])[address] [place], [place] [address]QLYKJCUOPWko 93-18-6694Qdbffxhwc [Mass/Vol]3.4 mg/dLNormal2.5-5.0UnUniversity Hospitals Beachwood Medical CenterComment on above:Performed By: #### [id number] ####[facility] ([facility])[address] [place], [place] [address]SXEILS ANTIGEN CLASS Ion [id number] SCREEN COMMENTSNo Class I donor specific antibody identifiedNormalUAvita Health System Bucyrus HospitalCombeaumont hospital on above:Performed By: #### [id number] ####[facility] TISSUE TYPING (HISTOTRAC)[address] [place] [address] USACLASS I TESTED DATE [id number]. Vincent HospitalComment on above: Performed By: #### [id number] ####[facility] TISSUE TYPING (HISTOTRAC)[address] [place] [address] USASIGNED BYSigned by Terrance Figueroa CHT([facility]) MT(ASCP), Upper Cutter Transplant ImmunologyNormalUAvita Health System Bucyrus HospitalCombeaumont hospital on above:Result Comment: Class I Antigen MicrobeadsPerformed By: #### [id number] ####[facility] TISSUE TYPING (HISTOTRAC)Amy [address] Performed By: #### [id number] ####[facility] TISSUE TYPING (HISTOTRAC)[address] [place] [address] USASINGLE ANTIGEN CLASS 1 TEST METHODClass I Single Antigen NormalUnUniversity Hospitals Beachwood Medical CenterComment on above:Performed By: #### [id number] ####[facility] TISSUE TYPING (HISTOTRAC)[address] [place] [address] SINGLE ANTIGEN CLASS IIon [id number] SCREEN COMMENTSNo Class II donor specific antibody identifiedNormalUniSt. Vincent HospitalComment on above: Performed By: #### [id number] ####[facility] TISSUE TYPING (HISTOTRAC)[address] [place], [place] [address]CLASS II TESTED [id number] of [place] Medical CenterComment on above:Performed By: #### [id number] ####[facility] TISSUE TYPING (HISTOTRAC)[address] [place] [address] USASINGLE ANTIGEN CLASS 2 TEST METHODClass II Single AntigenNormalUAvita Health System Bucy[facility] Hospital Comment on above:Result Comment: Class II Antigen MicrobeadsPerformed By: #### [id number] ####[facility] TISSUE TYPING (HISTOTRAC)[address] [place] [address] TACROLIMUS LEVELon 79-33-7727Dbzkvmaslk (Bld) [Mass/Vol]6.9 ng/mLNormal5.0-20.0 [facility] Medical CenterComment on above:Result Comment: The [employer] Tacrolimus assay is a delayed one-step immunoassay for the jose a titative determination of tacrolimus in human whole blood using the chemiluminescent microparticle immunoassay (CMIA) technology with flexible assay protocols, referred to as Chemiflex.Performed By: #### [id number] ####[facility] LAB (BE[facility]ER)[address] [place], [place] [address]URIC ACIDon 49-98-0546Czwiwgupi [Mass/Vol]5.0 mg/dLNormal4.4-7.6UnUniversity Hospitals Beachwood Medical CenterComment on above:Performed By: #### [id number] ####[facility] ([facility])[address] [place], [place] [address]KKJSLQTXV, DIRECTon 86-75-3675Lisvpillc [Mass/Vol]0.1 mg/dL Normal0-0.2UnUniversity Hospitals Beachwood Medical CenterComment on above:Performed By: #### [id number] ####[facility] ([facility])[address] [place] [address]YMC WITH AUTO DIFFERENTIALon 74-66-6755Wxcbccwup (Bld) [#/Vol]0.04 10*3/uLNormal 0.00-0.20UnUniversity Hospitals Beachwood Medical CenterComment on above:Performed By: #### [id number] ####[facility] ([facility])[address] [place] [address] Basophils/100 WBC (Bld)1.1 %High0.0-1.0UnUniversity [facility]als [facility] Center Comment on above:Performed By: #### [id number] ####[facility] ([facility])[address] [place], [place] [address]Zxzxcyobnik (Bld) [#/Vol]0.14 10*3/uLNormal 0.00-0.50UnUniversity Hospitals Beachwood Medical CenterComment on above:Performed By: #### [id number] ####[facility] ([facility])[address] [place] [address] Eosinophils/100 WBC (Bld)3.8 %Normal0.0-6.0UnUniversity [facility]als [facility] Center Comment on above:Performed By: #### [id number] ####[facility] ([facility])[address] [place], [place] [address]Inahxpvoqft distribution width (RBC) [Ratio]16.0 % High11.5-15.0UnUniversity Hospitals Beachwood Medical CenterComment on above:Performed By: #### [id number] ####[facility] ([facility])[address] [place] [address] ERYTHROCYTE MEAN CORPUSCULAR HEMOGLOBIN CONCENTRATION (G/DL) BY MCXYFSZWP14.3 g/eOSaxsbs94.0-35.0UnUniversity Hospitals Beachwood Medical CenterComment on above:Performed By: #### [id number] ####[facility] ([facility])[address] [place], [place] [address]Zuzejwhzcx (Bld) [Volume fraction]42.7 %Idvsoy87.0-50.0UnUniversity Hospitals Beachwood Medical CenterComment on above:Performed By: #### [id number] ####[facility] ([facility])[address] [place], [place] [address]Rmspvddoap (Bld) [Mass/Vol]14.2 g/dL Rqjovg52.0-17.0UnUniversity Hospitals Beachwood Medical CenterComment on above:Performed By: #### [id number] ####[facility] ([facility])[address] [place] [address] Immature granulocytes (Bld) [#/Vol]0.01 10*3/uLNormal0.00-0.20UnUniversity Hospitals Beachwood Medical CenterComment on above:Performed By: #### [id number] ####[facility] ([facility])[address] [place], [place] [address]Denupwfq granulocytes/100 WBC (Bld)0.3 %Normal0.0-1.0UnUniversity Hospitals Beachwood Medical CenterComment on above: Performed By: #### [id number] ####[facility] (BEAKER)[address] [place], [place] [address]Sqdtguhibcv (Bld) [#/Vol]0.09 10*3/uLLow1.20-4.00UnUniversity Hospitals Beachwood Medical CenterComment on above:Performed By: #### [id number] ####[facility] (BEAKER)[address] [place], [place] [address]Pzigpxohota/100 WBC (Bld) 2.4 %Low20.0-45.0UnUniversity Hospitals Beachwood Medical CenterComment on above:Performed By: #### [id number] ####[facility] (BEAKER)[address] [place], [place] [address]VPJ (RBC) [Entitic mass]33.3 ypSunw75.0-33.0UnUniversity Hospitals Beachwood Medical CenterComment on above:Performed By: #### [id number] ####[facility] ([facility])[address] [place] [address]IXV (RBC) [Entitic vol]100.0 fLHigh 82.0-98.0UnUniversity Hospitals Beachwood Medical CenterComment on above:Performed By: #### [id number] ####[facility] ([facility])[address] [place] [address] Monocytes (Bld) [#/Vol]0.36 10*3/uLNormal0.10-1.00UnUniversity Hospitals Beachwood Medical CenterComment on above:Performed By: #### [id number] ####[facility] ([facility])[address] [place] [address]Nyxqzhpzr/100 WBC (Bld)9.7 %Normal 5.0-12.0UnUniversity Hospitals Beachwood Medical CenterComment on above:Performed By: #### [id number] ####[facility] ([facility])[address] [facility] [place] [address] Neutrophils (Bld) [#/Vol]3.06 10*3/uLNormal1.60-7.60UnUniversity Hospitals Beachwood Medical CenterComment on above:Performed By: #### [id number] ####[facility] ([facility])[address] [place], [place] [address]Sxwfxcdxoas/100 WBC (Bld)82.7 %High 40.0-72.0UnUniversity Hospitals Beachwood Medical CenterComment on above:Performed By: #### [id number] ####[facility] ([facility])[address] [place], [place] [address]IXDR (PER 100 WBCS) BY AUTOMATED COUNT0.0 %Esxrcq3BhwlaaedzlUniversity Hospitals Beachwood Medical Center Comment on above:Performed By: #### [id number] ####[facility] ([facility])[address], [place] [address]JAAUAEDVY (10*3/UL) IN BLOOD AUTOMATED [id number] 10*3/nHYktxue721-296JeowlvycapUniversity Hospitals Beachwood Medical CenterComment on above: Performed By: #### [id number] ####[facility] ([facility])[address] [place] [address]ORM (Bld) [#/Vol]4.27 10*6/uLNormal4.20-5.70UnUniversity Hospitals Beachwood Medical CenterComment on above:Performed By: #### [id number] ####[facility] ([facility])[address] [place], [place] [address]PGE (Bld) [#/Vol]3.70 10*3/uLLow4.00-10.60UnUniversity Hospitals Beachwood Medical CenterComment on above: Performed By: #### [id number] ####[facility] ([facility])[address] [place], [place] [address]SFLDDCAYZQPHA METABOLIC PANELon 77-53-4230Uqkduip [Mass/Vol] 4.3 g/dLNormal3.5-5.7UnUniversity Hospitals Beachwood Medical CenterComment on above: Performed By: #### [id number] ####[facility] ([facility])[address], [place] [address]IWA [Catalytic activity/Vol]109 U/PYcyi25-088QhgrxvfgdvUniversity Hospitals Beachwood Medical CenterComment on above:Performed By: #### [id number] ####[facility] ([facility])[address], [place] [address]ZKY [Catalytic activity/Vol]13 U/L Normal7-52UnUniversity Hospitals Beachwood Medical CenterComment on above:Performed By: #### [id number] ####[facility] ([facility])[address], [place] [address]Ggxur gap [Moles/Vol]9 mmol/LNormal7-20UnUniversity Hospitals Beachwood Medical CenterComment on above:Performed By: #### [id number] ####[facility] ([facility])[address], [place] [address]MXT [Catalytic activity/Vol]15 U/SCwrfgx28-81PisleqaaujUniversity Hospitals Beachwood Medical CenterComment on above:Performed By: #### [id number] ####[facility] ([facility])[address] [place], [place] [address]Xhvtbpaiu [Mass/Vol]0.5 mg/dL Normal0.3-1.0UnUniversity Hospitals Beachwood Medical CenterComment on above:Performed By: #### [id number] ####[facility] ([facility])[address] [place] [address] Calcium [Mass/Vol]9.5 mg/dLNormal8.6-10.3UnUniversity Hospitals Beachwood Medical Center Comment on above:Performed By: #### [id number] ####[facility] ([facility])[address] [place], [place] [address]Xjlsxnmj [Moles/Vol]111 mmol/ZYxog60-790XrxnvzarnuUniversity Hospitals Beachwood Medical CenterComment on above:Performed By: #### [id number] ####[facility] ([facility])[address] [place], [place] [address]OA4 [Moles/Vol]25 mmol/L Rztpll06-92VohmatyomzUniversity Hospitals Beachwood Medical CenterComment on above:Performed By: #### [id number] ####[facility] ([facility])[address] [place] [address] Creatinine [Mass/Vol]1.38 mg/dLHigh0.70-1.30UnUniversity Hospitals Beachwood Medical Center Comment on above:Performed By: #### [id number] ####[facility] ([facility])[address] [place], [place] [address]ZYUROKRNAN FILTRATION RATE ML/MIN/1.73 SQ M.OJEKXDLTO76.5 mL/min/1.73m*2Normal>60.0UnUniversity Hospitals [facility] Medical Center Comment on above:Result Comment: [facility]???s estimated glomerular filtration rate (eGFR) will no longer include consideration of race in its calculation. The National Kidney Foundation???s eGFR Task Force developed new recommendations for the estimation of the glomerular filtration ra te in the [place] They recommend immediate implementation of the new equation refit without the race variable in all laboratories because the calculation does not include race. In addition to not including race in the calculation and reporting, it included diversity in its development, and has acceptable performance characteristics and potential consequences that do not disproportionately affect anyone group of individuals.Performed By: #### [id number] ####[facility] ([facility])[address] [place] [address]Npctttw [Mass/Vol]88 mg/nIWswbnf45-124WqsrtijbgwUniversity Hospitals Beachwood Medical CenterComment on above:Performed By: #### [id number] ####[facility] ([facility])[address] [place] [address]Vckocnzmb [Moles/Vol]4.4 mmol/LNormal3.5-5.1UnUniversity Hospitals Beachwood Medical CenterComment on above:Performed By: #### [id number] ####[facility] ([facility])[address] [place], [place] [address]Myiinwm [Mass/Vol]6.3 g/dLNormal 6.0-8.3UnUniversity Hospitals Beachwood Medical CenterComment on above:Performed By: #### [id number] ####[facility] ([facility])[address] [place] [place] [address]Scofkf [Moles/Vol]141 mmol/TKgvyzz493-043XdblimutzbUniversity Hospitals Beachwood Medical CenterComment on above:Performed By: #### [id number] ####[facility] ([facility])[address] [place], [place] [address]Lkzt nitrogen [Mass/Vol]21 mg/dLNormal7-25UnUniversity Hospitals Beachwood Medical CenterComment on above:Performed By: #### [id number] ####[facility] ([facility])[address] [place], [place] [address]CDXA NITROGEN/CREATININE (MASS RATIO) IN SER/PLAS15.2NormalUnUniversity Hospitals Beachwood Medical CenterComment on above: Performed By: #### [id number] ####[facility] ([facility])[address] [place] [address]Fgyuy 48-97-0969GmmOfyfstWpanluazuk of [place] Medical CenterMAGNESIUMon 59-59-4170Eldbmoggh [Mass/Vol]1.9 mg/dLNormal1.9-2.7UnUniversity Hospitals Beachwood Medical CenterComment on above:Performed By: #### [id number] ####[facility] ([facility])[address] [address]Rnweop Onlyon 92-18-4696Gogaly Only NormalUnUniversity Hospitals Beachwood Medical CenterPHOSPHORUSon 02-46-1845Yrejsdpvk [Mass/Vol]2.9 mg/dLNormal2.5-5.0UnUniversity Hospitals Beachwood Medical CenterComment on above:Performed By: #### [id number] ####[facility] ([facility])[address] [address]Pqibwsmkidsyufn 68-69-8344HqwlqpkevuagrJiornoNltdjgkewj Protestant HospitalTelephoneon 30-78-2705NiarxompcRtmgcfUuwcjgesmb Protestant HospitalBILIRUBIN, DIRECTon 16-30-7979Vprmbcgbf [Mass/Vol]0.1 mg/dLNormal 0-0.2UnUniversity Hospitals Beachwood Medical CenterComment on above:Performed By: #### [id number] ####[facility] ([facility])[address] [place] [address]QEY WITH AUTO DIFFERENTIALon 79-08-5632Ylfnuaiza (Bld) [#/Vol]0.03 10*3/uLNormal0.00-0.20 [facility] Medical CenterComment on above:Performed By: #### [id number] ####[facility] ([facility])[address] [place] [address]Notukrsvv/100 WBC (Bld)1.0 %Normal0.0-1.0UnUniversity Hospitals Beachwood Medical CenterComment on above: Performed By: #### [id number] ####[facility] ([facility])[address] [place] [address]Hjauehxjaqt (Bld) [#/Vol]0.15 10*3/uLNormal0.00-0.50 [facility] CenterComment on above:Performed By: #### [id number] ####[facility] ([facility])[address] [place] [address]Qbcpajlvrtv/100 WBC (Bld)5.1 %Normal0.0-6.0UnUniversity Hospitals Beachwood Medical CenterComment on above: Performed By: #### [id number] ####[facility] ([facility])[address] [place] [place] [address]Muccoaswzkz distribution width (RBC) [Ratio]17.2 %High 11.5-15.0UnUniversity Hospitals Beachwood Medical CenterComment on above:Performed By: #### [id number] ####[facility] ([facility])[address] [place] [address] ERYTHROCYTE MEAN CORPUSCULAR HEMOGLOBIN CONCENTRATION (G/DL) BY HSGXQMSJQ59.4 g/dHOnyfpu22.0-35.0UnUniversity Hospitals Beachwood Medical CenterComment on above:Performed By: #### [id number] ####[facility] ([facility])[address] [place], [place] [address]Mvhgmpegbq (Bld) [Volume fraction]43.8 %Hkcdhc73.0-50.0UnUniversity Hospitals Beachwood Medical CenterComment on above:Performed By: #### [id number] ####[facility] ([facility])[address] [place], [place] [address]Zvuvudpttt (Bld) [Mass/Vol]14.2 g/dL Vegwes78.0-17.0UnUniversity Hospitals Beachwood Medical CenterComment on above:Performed By: #### [id number] ####[facility] ([facility])[address] [address] Immature granulocytes (Bld) [#/Vol]0.05 10*3/uLNormal0.00-0.20UnUniversity Hospitals Beachwood Medical CenterComment on above:Performed By: #### [id number] ####[facility] ([facility])[address] [facility] [place], [place] [address]Juhbuvzi granulocytes/100 WBC (Bld)1.7 %High0.0-1.0UnUniversity Hospitals Beachwood Medical CenterComment on above: Performed By: #### [id number] ####[facility] ([facility])[address] [place], [place] [address]Nohjggvqktt (Bld) [#/Vol]0.11 10*3/uLLow1.20-4.00UnUniversity Hospitals Beachwood Medical CenterComment on above:Performed By: #### [id number] ####[facility] ([facility])[address] [place] [address]Tyrcldiblan/100 WBC (Bld) 3.8 %Low20.0-45.0UnUniversity Hospitals Beachwood Medical CenterComment on above:Performed By: #### [id number] ####[facility] ([facility])[address] [place] [address]MAB (RBC) [Entitic mass]33.2 bqPsmx21.0-33.0UnUniversity Hospitals Beachwood Medical CenterComment on above:Performed By: #### [id number] ####[facility] ([facility])[address] [place] [place] [address]UIK (RBC) [Entitic vol]102.3 fLHigh 82.0-98.0UnUniversity Hospitals Beachwood Medical CenterComment on above:Performed By: #### [id number] ####[facility] ([facility])[address] [place] [address] Monocytes (Bld) [#/Vol]0.33 10*3/uLNormal0.10-1.00UnUniversity Hospitals Beachwood Medical CenterComment on above:Performed By: #### [id number] ####[facility] ([facility])[address] [place], [place] [address]Puripzasp/100 WBC (Bld)11.3 %Normal 5.0-12.0UnUniversity Hospitals Beachwood Medical CenterComment on above:Performed By: #### [id number] ####[facility] ([facility])[address] [place] [address] Neutrophils (Bld) [#/Vol]2.26 10*3/uLNormal1.60-7.60UnUniversity Hospitals Beachwood Medical CenterComment on above:Performed By: #### [id number] ####[facility] ([facility])[address] [address]Psafujirgwp/100 WBC (Bld)77.1 %High 40.0-72.0UnUniversity Hospitals Beachwood Medical CenterComment on above:Performed By: #### [id number] ####[facility] ([facility])[address] [address]BBIZ (PER 100 WBCS) BY AUTOMATED COUNT0.0 %Jnhlss2CyvjnuvnzoUniversity Hospitals Beachwood Medical Center Comment on above:Performed By: #### [id number] ####[facility] ([facility])[address] [address]UZMQRSTLO (10*3/UL) IN BLOOD AUTOMATED ASSBZ622 10*3/bOXhuzof835-101QgsuvkgrchUniversity Hospitals Beachwood Medical CenterComment on above: Performed By: #### [id number] ####[facility] ([facility])[address] [place] [address]SDW (Bld) [#/Vol]4.28 10*6/uLNormal4.20-5.70UnUniversity Hospitals Beachwood Medical CenterComment on above:Performed By: #### [id number] ####[facility] ([facility])[address] [address]ZFG (Bld) [#/Vol]2.93 10*3/uLLow4.00-10.60UnUniversity Hospitals Beachwood Medical CenterComment on above: Performed By: #### [id number] ####[facility] ([facility])[address] [place], [place] [address]QEMYETJBPLMUB METABOLIC PANELon 76-14-5559Bpqgwsv [Mass/Vol] 4.3 g/dLNormal3.5-5.7UnUniversity Hospitals Beachwood Medical CenterComment on above: Performed By: #### [id number] ####[facility] ([facility])[address] [place] [address]MFP [Catalytic activity/Vol]120 U/LQgql64-722KsxuumfjbhUniversity Hospitals Beachwood Medical CenterComment on above:Performed By: #### [id number] ####[facility] ([facility])[address] [place], [place] [address]EKZ [Catalytic activity/Vol]12 U/L Normal7-52UnUniversity Hospitals Beachwood Medical CenterComment on above:Performed By: #### [id number] ####[facility] ([facility])[address] [place], [place] [address]Zmwcn gap [Moles/Vol]8 mmol/LNormal7-20UnUniversity Hospitals Beachwood Medical CenterComment on above:Performed By: #### [id number] ####[facility] ([facility])[address] [place], [place] [address]SPQ [Catalytic activity/Vol]16 U/WAckjhv63-92DpxlbfnkxcUniversity Hospitals Beachwood Medical CenterComment on above:Performed By: #### [id number] ####[facility] ([facility])[address], [place] [address]Dnaoisoct [Mass/Vol]0.5 mg/dL Normal0.3-1.0UnUniversity Hospitals Beachwood Medical CenterComment on above:Performed By: #### [id number] ####[facility] ([facility])[address] [place] [address] Calcium [Mass/Vol]9.8 mg/dLNormal8.6-10.3Un[facility] Comment on above:Performed By: #### [id number] ####[facility] ([facility])[address] [place], [place] [address]Ahhrymln [Moles/Vol]108 mmol/ZJrbs06-189RapqzsbvzqUniversity Hospitals Beachwood Medical CenterComment on above:Performed By: #### [id number] ####[facility] ([facility])[address], [place] [address]DV3 [Moles/Vol]27 mmol/L Fwqluc40-02AdvelkwgimUniversity Hospitals Beachwood Medical CenterComment on above:Performed By: #### [id number] ####[facility] ([facility])[address] [place] [address] Creatinine [Mass/Vol]1.31 mg/dLHigh0.70-1.30Un[facility] Comment on above:Performed By: #### [id number] ####[facility] ([facility])[address] [place] [address]BMHTVWZESJ FILTRATION RATE ML/MIN/1.73 SQ M.SADXRIOAK01.6 mL/min/1.73m*2Normal>60.0Un[facility] Comment on above:Result Comment: The [facility]???s estimated glomerular filtration rate (eGFR) will no longer include consideration of race in its calculation. The National Kidney Foundation???s eGFR Task Force developed new recommendations for the estimation of the glomerular filtration ra te in the [place] They recommend immediate implementation of the new equation refit without the race variable in all laboratories because the calculation does not include race. In addition to not including race in the calculation and reporting, it included diversity in its development, and has acceptable performance characteristics and potential consequences that do not disproportionately affect anyone group of individuals.Performed By: #### [id number] ####[facility] ([facility])[address] [place] [address]Etzmpqh [Mass/Vol]93 mg/oWCordyz87-642XdtgyvdfceUniversity Hospitals Beachwood Medical CenterComment on above:Performed By: #### [id number] ####[facility] ([facility])[address] [place] [address]Kyqzkqdwa [Moles/Vol]4.2 mmol/LNormal3.5-5.1UnUniversity Hospitals Beachwood Medical CenterComment on above:Performed By: #### [id number] ####[facility] ([facility])[address] [place], [place] [address]Eeniqhr [Mass/Vol]6.4 g/dLNormal 6.0-8.3UnUniversity Hospitals Beachwood Medical CenterComment on above:Performed By: #### [id number] ####[facility] ([facility])[address] [place] [address]Riximk [Moles/Vol]139 mmol/PRzvjom672-040WonqiodemmUniversity Hospitals Beachwood Medical CenterComment on above:Performed By: #### [id number] ####[facility] ([facility])[address], [place] [address]Agoi nitrogen [Mass/Vol]15 mg/dLNormal7-25UnUniversity Hospitals Beachwood Medical CenterComment on above:Performed By: #### [id number] ####[facility] ([facility])[address] [place], [place] [address]CDUE NITROGEN/CREATININE (MASS RATIO) IN SER/PLAS11.5NormalUniversPremier Health Atrium Medical CenterComment on above: Performed By: #### [id number] ####[facility] ([facility])[address] [place], [place] [address]Kruowg-Uwvo 92-04-7727Vtzazr-UpNormalUniversPremier Health Atrium Medical CenterLabon 42-75-4867TxqIzokhoLazxagtvvn Protestant HospitalMAGNESIUMon 58-88-7618Wnmdajini [Mass/Vol]1.8 mg/dLLow1.9-2.7UnUniversity Hospitals Beachwood Medical CenterComment on above:Performed By: #### [id number] ####[facility] ([facility])[address] [place], [place] [address]XQTCVYFYUHor 17-20-1571Xjnpktsks [Mass/Vol]1.3 mg/dLLow2.5-5.0UnUniversity Hospitals Beachwood Medical CenterComment on above:Performed By: #### [id number] ####[facility] ([facility])[address] [place], [place] [address]FVLGSABNTS LEVELon 55-48-3645Ymirybweuo (Bld) [Mass/Vol]18.0 ng/mLNormal5.0-20.0UnUniversity Hospitals Beachwood Medical CenterComment on above:Result Comment: The [employer] Tacrolimus assay is a delayed one-step immunoassay for the quantitative determination of tacrolimus in human whole blood using the chemiluminescent microparticle immunoassay (CMIA) technology with flexible assay protocols, referred to as Chemiflex.Performed By: #### [id number] ####[facility] ([facility])[address] [place], [place] [address]YOLK ACIDon 08-20-2024 Magnesium [Mass/Vol]4.5 mg/dLNormal4.4-7.6Un[facility] Comment on above:Performed By: #### [id number] ####[facility] ([facility])[address] [facility] [place], [place] [address]Tabekn Onlyon 89-78-7638Wrbjfq OnlyNormalUniversPremier Health Atrium Medical CenterC. DIFFICILE PCRon 08-13-2024. DIFFICILE PCRNegative NOMS HealthcareCLINISYNCNOMS Eqqipmjqjq44pn 43-88-595891Llokqd completed request.NormalUniversity Hospitals Parma Medical Center36on 04-07-179939Fvvepoz called back today to follow up on message. Please call. Thank youNormalUnUniversity Hospitals Beachwood Medical Center36on 53-30-673227XwbqwjEcbeeyfkfy of [facility] BILIRUBIN, DIRECTon 60-25-4507Pljxespsw [Mass/Vol]0.2 mg/dLNormal0-0.2UnUniversity Hospitals [facility]wood Medical CenterComment on above:Performed By: #### [id number] ####[facility] ([facility])[address] [place], [place] [address]GCJ WITH AUTO DIFFERENTIALon 06-35-7803Cromjrxzngf distribution width (RBC) [Ratio]20.1 %High 11.5-15.0UnUniversity Hospitals Beachwood Medical CenterComment on above:Performed By: #### [id number] ####[facility] ([facility])[address] [place] [address] ERYTHROCYTE MEAN CORPUSCULAR HEMOGLOBIN CONCENTRATION (G/DL) BY HVTOTQVGZ19.7 g/bEOmovqi09.0-35.0UnUniversity Hospitals Beachwood Medical CenterComment on above:Performed By: #### [id number] ####[facility] ([facility])[address] [facility] [place], [place] [address]Zamdrtqqry (Bld) [Volume fraction]42.8 %Nxvsjz85.0-50.0UnUniversity Hospitals Beachwood Medical CenterComment on above:Performed By: #### [id number] ####[facility] ([facility])[address] [facility] [place], [place] [address]Xlppmfpzwh (Bld) [Mass/Vol]14.0 g/dL Xzuqrh69.0-17.0UnUniversity Hospitals Beachwood Medical CenterComment on above:Performed By: #### [id number] ####[facility] ([facility])[address] [place] [address] MCH (RBC) [Entitic mass]32.9 gbLppoqz50.0-33.0UnUniversity Hospitals Beachwood Medical CenterComment on above:Performed By: #### [id number] ####[facility] ([facility])[address] [place] [address]ZGZ (RBC) [Entitic vol]100.7 fLHigh 82.0-98.0UnUniversity Hospitals Beachwood Medical CenterComment on above:Performed By: #### [id number] ####[facility] ([facility])[address] [place] [address]RBEF (PER 100 WBCS) BY AUTOMATED COUNT0.0 %Hrljaf2ByuafaelpdUniversity Hospitals Beachwood Medical Center Comment on above:Performed By: #### [id number] ####[facility] ([facility])[address] [place] [address]XATRAVTAO (10*3/UL) IN BLOOD AUTOMATED [id number] 10*3/bKVcapyx113-460NrsdholoaoUniversity Hospitals Beachwood Medical CenterComment on above: Performed By: #### [id number] ####[facility] ([facility])[address] [place] [address]RIW (Bld) [#/Vol]4.25 10*6/uLNormal4.20-5.70UnUniversity Hospitals Beachwood Medical CenterComment on above:Performed By: #### [id number] ####[facility] ([facility])[address] [place] [address]YIB (Bld) [#/Vol]4.37 10*3/uLNormal4.00-10.60UnUniversity Hospitals Beachwood Medical CenterComment on above: Performed By: #### [id number] ####[facility] ([facility])[address] [place] [address]BLBSITQPZZNHS METABOLIC PANELon 61-21-2813Jbzxlmj [Mass/Vol] 4.3 g/dLNormal3.5-5.7UnUniversity Hospitals Beachwood Medical CenterComment on above: Performed By: #### [id number] ####[facility] ([facility])[address] [place], [place] [address]QGB [Catalytic activity/Vol]127 U/SPgdi84-506XajpghzxiyUniversity Hospitals Beachwood Medical CenterComment on above:Performed By: #### [id number] ####[facility] ([facility])[address] [place], [place] [address]IPL [Catalytic activity/Vol]13 U/L Normal7-52UnUniversity Hospitals Beachwood Medical CenterComment on above:Performed By: #### [id number] ####[facility] ([facility])[address] [place], [place] [address]Otuoo gap [Moles/Vol]8 mmol/LNormal7-20UnUniversity Hospitals Beachwood Medical CenterComment on above:Performed By: #### [id number] ####[facility] ([facility])[address] [place], [place] [address]IYQ [Catalytic activity/Vol]19 U/GVjdkfq98-75LhjjrpecsvUniversity Hospitals Beachwood Medical CenterComment on above:Performed By: #### [id number] ####[facility] ([facility])[address] [place], [place] [address]Kkslwgzkd [Mass/Vol]0.7 mg/dL Normal0.3-1.0UnUniversity Hospitals Beachwood Medical CenterComment on above:Performed By: #### [id number] ####[facility] ([facility])[address] [place] [address] Calcium [Mass/Vol]9.9 mg/dLNormal8.6-10.3UnUniversity Hospitals Beachwood Medical Center Comment on above:Performed By: #### [id number] ####[facility] ([facility])[address], [place] [address]Futlezpy [Moles/Vol]110 mmol/TCrrx78-129VyouclmrjcUniversity Hospitals Beachwood Medical CenterComment on above:Performed By: #### [id number] ####[facility] ([facility])[address], [place] [address]SA2 [Moles/Vol]24 mmol/L Gntamh03-93WgwcbxsfjnUniversity Hospitals Beachwood Medical CenterComment on above:Performed By: #### [id number] ####[facility] ([facility])[address] [place] [address] Creatinine [Mass/Vol]1.51 mg/dLHigh0.70-1.30UnUniversity Hospitals Beach[facility] Medical Center Comment on above:Performed By: #### [id number] ####[facility] [facility] ([facility])[address] [place] [address]EJTDWXELPQ FILTRATION RATE ML/MIN/1.73 SQ M.KBILFEUZK56.0 mL/min/1.73m*2Low>60.0UnUniversity Hospitals Beachwood Medical CenterComment on above:Result Comment: [facility]???s estimated glomerular filtration rate (eGFR) will no [...] potential consequences that do not disproportionately affect anyone group of individuals.Performed By: #### [id number] ####[facility] ([facility])[address] [place] [address]Axsmcwj [Mass/Vol]94 mg/yCBhyuwn14-594 [facility] CenterComment on above:Performed By: #### [id number] ####[facility] ([facility])[address] [place] [address]Gxewdcqry [Moles/Vol]4.1 mmol/LNormal3.5-5.1UnUniversity Hospitals Beachwood Medical CenterComment on above:Performed By: #### [id number] ####[facility] ([facility])[address] [place] [address]Qwlnupc [Mass/Vol]6.3 g/dLNormal6.0-8.3UnUniversity Hospitals Beachwood Medical CenterComment on above:Performed By: #### [id number] ####[facility] ([facility])[address] [place] [address]Xgxvwr [Moles/Vol]138 mmol/LNormal 136-145UnUniversity Hospitals Beachwood Medical CenterComment on above:Performed By: #### [id number] ####[facility] ([facility])[address] [place] [address]Kmjo nitrogen [Mass/Vol]18 mg/dLNormal7-25UnUniversity Hospitals Beachwood Medical CenterComment on above:Performed By: #### [id number] ####[facility] ([facility])[address] [place], [place] [address]FZAT NITROGEN/CREATININE (MASS RATIO) IN SER/PLAS11.9Normal [facility]ma Medical CenterComment on above:Performed By: #### [id number] ####[facility] ([facility])[address] [place], [place] [address]ZISCRWCRFK, URINE, RANDOMon 91-75-0333Sdmevedldd (U) [Mass/Vol]71.0 mg/hVPwhien15-753 [facility] CenterComment on above:Performed By: #### [id number] ####[facility] ([facility])[address] [place], [place] [address]Iyddyp-Cgve 82-18-2993Uldlau-UpNormalUniSt. Vincent HospitalHEMOGLOBIN A1Con 20-10-2494Tilcoiz [Mass/Vol]100 mg/dLNoalUniSt. Vincent Hospital Comment on above:Performed By: #### [id number] ####[facility] ([facility])[address] [place], [place] [address]YrR9n (Bld) [Mass fraction]5.1 %Normal4.0-6.0 [facility] CenterComment on above:Performed By: #### [id number] ####[facility] ([facility])[address] [place], [place] [address]LXIPH PANELon 94-96-5197LMAE/HDL2.6 mg/dLNormalUniSt. Vincent HospitalComment on above:Performed By: #### [id number] ####[facility] ([facility])[address] [place], [place] [address]Vpoepbteymg [Mass/Vol]128 mg/nLJjaois097-962GhbcyxzbosUniversity Hospitals Beachwood Medical CenterComment on above:Performed By: #### [id number] ####[facility] ([facility])[address] [place], [place] [address]Jeohihwvt [Mass/Vol]124 mg/dL Normal<150UnUniversity Hospitals Beachwood Medical CenterComment on above:Result Comment: TRIGLYCERIDE REFERENCE RANGE:20 YEARS AND OLDER CARDIOVASCULAR RISKLESS THAN 150 mg/dL LOW YQFD229 TO 199 mg/dL BORDERLINE CQDQ624 mg/dL AND GREATER HIGH RISK Performed By: #### [id number] ####[facility] ([facility])[address] [place], [place] [address]Exqbnegoe [Mass/Vol]54 mg/dLNormal0-160UnUniversity Hospitals Beachwood Medical CenterComment on above:Performed By: #### [id number] ####[facility] ([facility])[address] [place], [place] [address]Fwxcqzkma [Mass/Vol]49 mg/dLNormal 23-92UnUniversity Hospitals Beachwood Medical CenterComment on above:Performed By: #### [id number] ####[facility] ([facility])[address] [place], [place] [address]USL HDL CHOL. (LDL+VLDL)79NormalUniversPremier Health Atrium Medical CenterComment on above: Performed By: #### [id number] ####[facility] ([facility])[address] [place], [place] [address]QRTIO VLDL-C25 mg/dLNormal0-40UnUniversity Hospitals [facility] Center Comment on above:Performed By: #### [id number] ####[facility] ([facility])[address] [place], [place] [address]Wsbfs 73-40-5658LacVitvwaIsnvdgbjsb of [facility]edo Medical CenterMAGNESIUMon 13-10-26[address]Oodjevwfk [Mass/Vol]2.0 mg/dLNormal1.9-2.7 [facility] CenterComment on above:Performed By: #### [id number] ####[facility] ([facility])[address] [place] [address]ZXAKRN DIFFERENTIALon 95-18-1064XBXCWAQYG (10*3/UL) IN BLOOD BY CALCULATION0.03 10*3/uL Normal0.00-0.20UnUniversity Hospitals Beachwood Medical CenterComment on above:Performed By: #### [id number] ####[facility] ([facility])[address] [place] [address] BASOPHILS/100 LEUKOCYTES IN BLOOD BY AUTOMATED COUNT0.7 %Normal0.0-1.0UnUniversity Hospitals Beachwood Medical CenterComment on above:Performed By: #### [id number] ####[facility] ([facility])[address] [place] [address]KVCZAXGTZHP (10*3/UL) IN BLOOD BY CALCULATION0.11 10*3/uLNormal0.00-0.50UnUniversity Hospitals Beachwood Medical CenterComment on above:Performed By: #### [id number] ####[facility] ([facility])[address] [place] [address]HPSIHPQHGKQ/100 LEUKOCYTES IN BLOOD BY AUTOMATED COUNT2.6 %Normal0.0-6.0UnUniversity Hospitals Beachwood Medical CenterComment on above:Performed By: #### [id number] ####[facility] ([facility])[address] [place] [address]XWVMWVEKZAX (10*3/UL) IN BLOOD BY CALCULATION0.03 10*3/uLLow 1.20-4.00UnUniversity Hospitals Beachwood Medical CenterComment on above:Performed By: #### [id number] ####[facility] ([facility])[address] [place] [address] LYMPHOCYTES/100 LEUKOCYTES IN BLOOD BY AUTOMATED COUNT0.6 %Low20.0-45.0 [facility] CenterComment on above:Performed By: #### [id number] ####[facility] ([facility])[address], [place] [address]BRPRFDGUAAUIPV (10*3/UL) IN BLOOD BY CALCULATION0.03 10*3/uLHigh0.00UnUniversity Hospitals Beachwood Medical CenterComment on above:Performed By: #### [id number] ####[facility] ([facility])[address] [place], [place] [address]CBADCFJPSJYVIJ/100 LEUKOCYTES IN BLOOD CELLAVISION0.6 %High0.0-0.0UnUniversity Hospitals Beachwood Medical CenterComment on above: Performed By: #### [id number] ####[facility] ([facility])[address] [place], [place] [address]HSGQNPBWT (10*3/UL) IN BLOOD BY CALCUATION0.48 10*3/uLNormal 0.10-1.00UnUniversity Hospitals Beachwood Medical CenterComment on above:Performed By: #### [id number] ####[facility] ([facility])[address] [place] [address] MONOCYTES/100 LEUKOCYTES IN BLOOD BY AUTOMATED COUNT10.9 %Normal5.0-12.0 [facility] CenterComment on above:Performed By: #### [id number] ####[facility] ([facility])[address] [place], [place] [address]UKJJEKXYOCX (10*3/UL) IN BLOOD BY CALCULATION3.7 10*3/uLNormal1.6-7.6UnUniversity Hospitals Beachwood Medical CenterComment on above:Performed By: #### [id number] ####[facility] ([facility])[address] [place], [place] [address]IHDBRRJONQD/100 LEUKOCYTES IN BLOOD BY AUTOMATED COUNT84.6 %High40.0-72.0UnUniversity Hospitals Beachwood Medical CenterComment on above:Performed By: #### [id number] ####[facility] ([facility])[address] [place], [place] [address]JVOLNN CELLS/100 LEUKOCYTES IN BLOOD0 %Geoebm1LwftocueyxUniversity Hospitals Beachwood Medical CenterComment on above:Performed By: #### [id number] ####[facility] ([facility])[address] [place], [place] [address]IDWMQNMLF GIANT PRESENCE IN BLOOD BY LIGHT MICROSCOPYPresentNormalUniversPremier Health Atrium Medical Center Comment on above:Performed By: #### [id number] ####[facility] ([facility])[address] [place] [address]KNMCNTQ LYMPHOCYTES (10*3/UL) IN BLOOD BY CALCULATION0.00 10*3/uLNormal0.00UnUniversity Hospitals Beachwood Medical CenterComment on above:Performed By: #### [id number] ####[facility] ([facility])[address] [place] [address]JPTGFZY LYMPHOCYTES/100 LEUKOCYTES IN BLOOD CELLAVISION0.0 % Normal0.0-0.0UnUniversity Hospitals Beachwood Medical CenterComment on above:Performed By: #### [id number] ####[facility] ([facility])[address] [place] [address] PHOSPHORUSon 10-60-4254Dbusaxngo [Mass/Vol]2.3 mg/dLLow2.5-5.0UnUniversity Hospitals Beachwood Medical CenterComment on above:Performed By: #### [id number] ####[facility] ([facility])[address] [facility] [place] [place] [address]HCKNINV, URINE, RANDOMon 86-05-2193Tfiympx (U) [Mass/Vol]15.6 mg/dLNormalUniSt. Vincent HospitalComment on above:Result Comment: There are no established reference values for random urine specimens.Performed By: #### [id number] ####[facility] ([facility])[address] [place] [address]BVOLEH ANTIGEN CLASS Ion [id number] SCREEN COMMENTSNo Class I donor specific antibody identifiedNormalUniSt. Vincent HospitalComment on above:Performed By: #### [id number] ####[facility] TISSUE TYPING (HISTOTRAC)[address] [place] [address] USACLASS I TESTED DATE [id number] Hospital Cleveland EastComment on above: Performed By: #### [id number] ####[facility] TISSUE TYPING (HISTOTRAC)[address] [place] [address] USASINGLE ANTIGEN CLASS 1 TEST METHODClass I Single Antigen NormalUnUniversity Hospitals Beachwood Medical CenterComment on above:Performed By: #### [id number] ####[facility] TISSUE TYPING (HISTOTRAC)[address] [place], [place] [address] SINGLE ANTIGEN CLASS IIon [id number] SCREEN COMMENTSNo Class II donor specific antibody identifiedNoalUAvita Health System Bucyrus HospitalCombeaumont hospital on above: Performed By: #### [id number] ####[facility] TISSUE TYPING (HISTOTRAC)[address] [place] [address] USACLASS II TESTED [id number] of [facility] Medical CenterCombeaumont hospital on above:Performed By: #### [id number] ####[facility] TISSUE TYPING (HISTOTRAC)[address] [place] [address] USASIGNED BYSigned by Terrance Figueroa CHT([facility]) MT(ASCP), Upper Cutter Transplant ImmunologyNoRegency Hospital Cleveland EastCombeaumont hospital on above:Performed By: #### [id number] ####[facility] TISSUE TYPING (HISTOTRAC)[address] [place] [address] USAResult Comment: Class I Antigen MicrobeadsPerformed By: #### [id number] ####[facility] TISSUE TYPING (HISTOTRAC)[address] [place] [address] USASINGLE ANTIGEN CLASS 2 TEST METHODClass II Single AntigenNoRegency Hospital Cleveland EastCombeaumont hospital on above:Result Comment: Class II Antigen MicrobeadsPerformed By: #### [id number] ####[facility] TISSUE TYPING (HISTOTRAC)[address] [place] [id number] [facility] TACROLIMUS LEVELon 50-05-3683Lrhjinmrgp (Bld) [Mass/Vol]6.9 ng/mLNormal5.0-20.0 [facility] CenterCombeaumont hospital on above:Result Comment: The [employer] Tacrolimus assay is a delayed one-step immunoassay for the jose a titative determination of tacrolimus in human whole blood using the chemiluminescent microparticle immunoassay (CMIA) technology with flexible assay protocols, referred to as Chemiflex.Performed By: #### [id number] ####[facility] ([facility])[address] [place] [address]ZWNNFJGBKLAC, FREE AND TOTAL, AND SHBGon 79-40-1422ZCE HORMONE BINDING GLOBULIN (NMOL/L) IN SER/PLAS42 nmol/L Downnx42-07BeyccrbmkiUniversity Hospitals Beachwood Medical CenterComment on above:Performed By: #### [id number] ####[facility] [id number] [place] [address]BCZYIJTHCBXO (NG/DL) IN SER/TFHR269 ng/vLJlmrka847-345ChytsgpbmdUniversity Hospitals Beachwood Medical Center Comment on above:Performed By: #### [id number] ####[facility] [id number] [place] [address]JKRICOXBBWXM FREE (NG/ML) IN SER/PLAS84.6 pg/mLNormal 47.0-244.0UnUniversity Hospitals Beachwood Medical CenterComment on above:Result Comment: The concentration of free testosterone is derived from a mathematical expression based on the constant for the binding of testosterone to albumin and/or sex hormone binding globulin.Test Performed by [employer] [address] [place] [address] - Released 08/06/2024 11:16Performed By: #### [id number] ####[facility] [id number] [place] [address]QVJP ACIDon 19-48-1248Mjtpwqxzu [Mass/Vol]5.5 mg/dLNormal4.4-7.6UnUniversity Hospitals Beachwood Medical CenterComment on above:Performed By: #### [id number] ####[facility] ([facility])[address] [place] [address]URHTPUSUM, DIRECTon 07-25-2024 Magnesium [Mass/Vol]0.2 mg/dLNormal0-0.2UnUniversity [facility]als [facility] Comment on above:Performed By: #### [id number] ####[facility] ([facility])[address] [place] [address]WFN WITH AUTO DIFFERENTIALon 66-31-7058Gzitfhdhjuo distribution width (RBC) [Ratio]22.1 %High11.5-15.0UnUniversity Hospitals Beachwood Medical CenterComment on above:Performed By: #### [id number] ####[facility] ([facility])[address], [place] [address]SGDCEBBDNRB MEAN CORPUSCULAR HEMOGLOBIN CONCENTRATION (G/DL) BY YYCJPASQV18.3 g/xMZblpob38.0-35.0UnUniversity Hospitals Beachwood Medical CenterComment on above:Performed By: #### [id number] ####[facility] ([facility])[address], [place] [address]Pgkvaknlim (Bld) [Volume fraction]41.1 %Khruew82.0-50.0UnUniversity Hospitals Beachwood Medical CenterComment on above:Performed By: #### [id number] ####[facility] ([facility])[address], [place] [address]Dhuwcfkpsx (Bld) [Mass/Vol]13.7 g/xQOiwyfe85.0-17.0UnUniversity Hospitals Beachwood Medical CenterComment on above:Performed By: #### [id number] ####[facility] ([facility])[address], [place] [address]PKS (RBC) [Entitic mass] 32.8 ufRgnquv64.0-33.0UnUniversity Hospitals Beachwood Medical CenterComment on above: Performed By: #### [id number] ####[facility] ([facility])[address], [place] [address]MAS (RBC) [Entitic vol]98.3 jTTsbk90.0-98.0UnUniversity Hospitals Beachwood Medical CenterComment on above:Performed By: #### [id number] ####[facility] ([facility])[address], [place] [address]OARK (PER 100 WBCS) BY AUTOMATED COUNT0.0 %Bbucle9KlcddiiypfUniversity Hospitals Beachwood Medical CenterComment on above: Performed By: #### [id number] ####[facility] ([facility])[address], [place] [address]TASYDKVKV (10*3/UL) IN BLOOD AUTOMATED [id number] 10*3/uLNormal 150-400UnUniversity Hospitals Beachwood Medical CenterComment on above:Performed By: #### [id number] ####[facility] ([facility])[address], [place] [address]BSQ (Bld) [#/Vol]4.18 10*6/uLLow4.20-5.70UnUniversity Hospitals Beachwood Medical CenterComment on above:Performed By: #### [id number] ####[facility] ([facility])[address], [place] [address]AQS (Bld) [#/Vol]5.43 10*3/uLNormal4.00-10.60UnUniversity Hospitals Beachwood Medical CenterComment on above:Performed By: #### [id number] ####[facility] ([facility])[address], [place] [address]ATMTZPXUPGQZY METABOLIC PANELon 69-68-4813Vdvmhnt [Mass/Vol]4.3 g/dLNormal3.5-5.7UnUniversity Hospitals Beachwood Medical CenterComment on above:Performed By: #### [id number] ####[facility] ([facility])[address], [place] [address]WPE [Catalytic activity/Vol]123 U/L Quqg70-057WwkqvphfsgUniversity Hospitals Beachwood Medical CenterComment on above:Performed By: #### [id number] ####[facility] ([facility])[address], [place] [address]QVU [Catalytic activity/Vol]11 U/LNormal7-52UnUniversity Hospitals [facility] Center Comment on above:Performed By: #### [id number] ####[facility] ([facility])[address], [place] [address]Yartb gap [Moles/Vol]8 mmol/LNormal7-20UnUniversity Hospitals Beachwood Medical CenterComment on above:Performed By: #### [id number] ####[facility] ([facility])[address] [place], [place] [address]HAL [Catalytic activity/Vol]16 U/TTrcvku30-07HatnwabdeaUniversity Hospitals Beachwood Medical CenterComment on above:Performed By: #### [id number] ####[facility] ([facility])[address] [place], [place] [address]Zyvznhozl [Mass/Vol]0.6 mg/dLNormal0.3-1.0UnUniversity Hospitals Beachwood Medical CenterComment on above:Performed By: #### [id number] ####[facility] ([facility])[address] [place], [place] [address]Nqavdev [Mass/Vol]9.5 mg/dLNormal 8.6-10.3UnUniversity Hospitals Beachwood Medical CenterComment on above:Performed By: #### [id number] ####[facility] ([facility])[address] [place], [place] [address]Pkriryjw [Moles/Vol]114 mmol/EYevd33-802VvbarxgqboUniversity Hospitals Beachwood Medical CenterComment on above:Performed By: #### [id number] ####[facility] ([facility])[address] [place], [place] [address]RM1 [Moles/Vol]21 mmol/XAetscs51-16IhghaoulhgUniversity Hospitals Beachwood Medical CenterComment on above:Performed By: #### [id number] ####[facility] ([facility])[address] [place], [place] [address]Xzjtepegrq [Mass/Vol]1.48 mg/dLHigh 0.70-1.30UnUniversity Hospitals Beachwood Medical CenterComment on above:Performed By: #### [id number] ####[facility] ([facility])[address] [place], [place] [address]KJZWNDIFUD FILTRATION RATE ML/MIN/1.73 SQ M.KDYZAKOZI61.4 mL/min/1.73m*2Low>60.0UnUniversity Hospitals Beachwood Medical CenterComment on above:Result Comment: The [facility]???s estimated glomerular filtration rate (eGFR) will no [...] potential consequences that do not disproportionately affect anyone group of individuals. Performed By: #### [id number] ####[facility] ([facility])[address], [place] [address]Tascavs [Mass/Vol]91 mg/fURibjnu28-943SmczcezscbUniversity Hospitals Beachwood Medical CenterComment on above:Performed By: #### [id number] ####[facility] ([facility])[address] [place] [address]Khkaosqiy [Moles/Vol]4.1 mmol/LNormal 3.5-5.1UnUniversity Hospitals Beachwood Medical CenterComment on above:Performed By: #### [id number] ####[facility] ([facility])[address], [place] [address]Lprfrcb [Mass/Vol]6.3 g/dLNormal6.0-8.3UnUniversity Hospitals Beachwood Medical CenterComment on above:Performed By: #### [id number] ####[facility] ([facility])[address] [place] [address]Defbsh [Moles/Vol]139 mmol/JFapgyd805-860KjhxhrwnaeUniversity Hospitals Beachwood Medical CenterComment on above:Performed By: #### [id number] ####[facility] ([facility])[address], [place] [address]Fbye nitrogen [Mass/Vol]23 mg/dLNormal 7-25UnUniversity Hospitals Beachwood Medical CenterComment on above:Performed By: #### [id number] ####[facility] ([facility])[address], [place] [address]RCKK NITROGEN/CREATININE (MASS RATIO) IN SER/PLAS15.5NormalUniversPremier Health Atrium Medical CenterComment on above:Performed By: #### [id number] ####[facility] ([facility])[address], [place] [address]Myfjzdthpgwzhku 07-25-2024 DocumentationNormalUniversity of South Texas Health System McallenFollow-Upon 07-25-2024 Follow-UpNormalUniversity of South [facility] Health System McallenLabon 82-87-7471QtuEadmwu [facility] CenterMAGNESIUMon 56-84-2836Rwxwkzpvq [Mass/Vol]1.5 mg/dLLow1.9-2.7UnUniversity Hospitals Beachwood Medical CenterComment on above:Performed By: #### [id number] ####[facility] ([facility])[address] [place] [address] MANUAL DIFFERENTIALon 63-56-6502CANBYCSTGVOP PRESENCE IN BLOOD BY LIGHT MICROSCOPYModerateNormalUniversPremier Health Atrium Medical CenterComment on above: Performed By: #### [id number] ####[facility] ([facility])[address] [facility] [place] [place] [address]UEHUVFSCE (10*3/UL) IN BLOOD BY CALCULATION0.00 10*3/uLNormal 0.00-0.20UnUniversity Hospitals Beachwood Medical CenterComment on above:Performed By: #### [id number] ####[facility] ([facility])[address] [place] [address] BASOPHILS/100 LEUKOCYTES IN BLOOD BY AUTOMATED COUNT0.0 %Normal0.0-1.0UnUniversity Hospitals Beachwood Medical CenterComment on above:Performed By: #### [id number] ####[facility] ([facility])[address] [place] [address]BHJRNZYOPHZ (10*3/UL) IN BLOOD BY CALCULATION0.00 10*3/uLNormal0.00-0.50UnUniversity Hospitals Beachwood Medical CenterComment on above:Performed By: #### [id number] ####[facility] ([facility])[address] [place], [place] [address]LSZDTUPIVMQ/100 LEUKOCYTES IN BLOOD BY AUTOMATED COUNT0.0 %Normal0.0-6.0UnUniversity Hospitals Beachwood Medical CenterComment on above:Performed By: #### [id number] ####[facility] ([facility])[address] [place] [address]GOBHTGZU GRANULOCYTES (10*3/UL) IN BLOOD BY CALCULATION0.32 10*3/uLHigh0.00-0.20UnUniversity Hospitals Beachwood Medical CenterComment on above: Performed By: #### [id number] ####[facility] ([facility])[address] [place], [place] [address]AIUKJPWHQXN (10*3/UL) IN BLOOD BY CALCULATION0.04 10*3/uLLow 1.20-4.00UnUniversity Hospitals Beachwood Medical CenterComment on above:Performed By: #### [id number] ####[facility] ([facility])[address] [place] [address] LYMPHOCYTES/100 LEUKOCYTES IN BLOOD BY AUTOMATED COUNT0.7 %Low20.0-45.0 [facility] CenterComment on above:Performed By: #### [id number] ####[facility] ([facility])[address] [place], [place] [address]ECOIFTFNC (10*3/UL) IN BLOOD BY CALCUATION0.28 10*3/uLNormal0.10-1.00UnUniversity Hospitals Beachwood Medical CenterComment on above:Performed By: #### [id number] ####[facility] ([facility])[address] [place], [place] [address]ACVIYCGKY/100 LEUKOCYTES IN BLOOD BY AUTOMATED COUNT5.2 %Normal5.0-12.0[facility] CenterComment on above:Performed By: #### [id number] ####[facility] ([facility])[address] [place], [place] [id number] (10*3/UL) IN BLOOD BY CALCULATION5.1 10*3/uL Normal1.6-7.6UnUniversity Hospitals Beachwood Medical CenterComment on above:Performed By: #### [id number] ####[facility] ([facility])[address] [place] [address] NEUTROPHILS/100 LEUKOCYTES IN BLOOD BY AUTOMATED COUNT94.1 %High40.0-72.0 [facility] CenterComment on above:Performed By: #### [id number] ####[facility] ([facility])[address] [place], [place] [address]YWVUMINUN RED BLOOD CELLS IN BLOOD BY LIGHT MICROSCOPYPresentNormalUniversPremier Health Atrium Medical CenterComment on above:Performed By: #### [id number] ####[facility] [facility] ([facility])[address] [place], [place] [address]ABEPXX CELLS/100 LEUKOCYTES IN BLOOD0 %Buqcen2RmgqrmkshxUniversity Hospitals Beachwood Medical CenterComment on above:Performed By: #### [id number] ####[facility] ([facility])[address] [place] [address] PLATELETS GIANT PRESENCE IN BLOOD BY LIGHT MICROSCOPYPresentNormalUniSt. Vincent HospitalComment on above:Performed By: #### [id number] ####[facility] ([facility])[address], [place] [address]BUZGSBAZQQXWPG (PRESENCE) IN BLOOD BY LIGHT MICROSCOPYSlightNormalUniSt. Vincent Hospital Comment on above:Performed By: #### [id number] ####[facility] ([facility])[address], [place] [address]GKDREWGCWLARZ IN BLOOD BY LIGHT MICROSCOPYSlight NormalUnUniversity Hospitals Beachwood Medical CenterComment on above:Performed By: #### [id number] ####[facility] ([facility])[address] [place], [place] [address]COHVRME LYMPHOCYTES (10*3/UL) IN BLOOD BY CALCULATION0.00 10*3/uLNormal0.00UnUniversity Hospitals Beachwood Medical CenterComment on above:Performed By: #### [id number] ####[facility] ([facility])[address], [place] [address]QYKPWSF LYMPHOCYTES/100 LEUKOCYTES IN BLOOD CELLAVISION0.0 %Normal0.0-0.0UnUniversity Hospitals Beachwood Medical CenterComment on above:Performed By: #### [id number] ####[facility] ([facility])[address], [place] [address]WDUKQATKCHmj 44-95-7083Atlokkbri [Mass/Vol]2.4 mg/dLLow2.5-5.0UnUniversity Hospitals Beachwood Medical CenterComment on above:Performed By: #### [id number] ####[facility] ([facility])[address], [place] [address]QKBAQBUFVS LEVELon 00-09-6698Grpzyfpowe (Bld) [Mass/Vol]8.5 ng/mLNormal5.0-20.0UnUniversity Hospitals Beachwood Medical CenterComment on above:Result Comment: The [employer] Tacrolimus assay is a delayed one-step immunoassay for the quantitative determination of tacrolimus in human whole blood using the chemiluminescent microparticle immunoassay (CMIA) technology with flexible assay protocols, referred to as Chemiflex.Performed By: #### [id number] ####[facility] ([facility])[address] [place], [place] [address]HVJL ACIDon 07-25-2024 Magnesium [Mass/Vol]5.2 mg/dLNormal4.4-7.6UnUniversity Hospitals Beachwood Medical Center Comment on above:Performed By: #### [id number] ####[facility] ([facility])[address] [place], [place] [address]VEH WITH AUTO DIFFERENTIALon 12-00-1908Eathhhmqseh distribution width (RBC) [Ratio]23.3 %High11.5-15.0UnUniversity Hospitals Beachwood Medical CenterComment on above:Performed By: #### [id number] ####[facility] ([facility])[address] [facility]AMGE[facility] COMM[facility] MEDICAL CENTERKleberHOU[place], [place] [address]ABXLBZJHGDS MEAN CORPUSCULAR HEMOGLOBIN CONCENTRATION (G/DL) BY UZKFSEOPI58.6 g/tXLeulbe97.0-35.0UnUniversity Hospitals Beachwood Medical CenterComment on above:Performed By: #### [id number] ####[facility] ([facility])[address] ADAMGEISINGER COMMUNITY MEDICAL CENTERKleber[place], [place] [address]Pdzhfarfxn (Bld) [Volume fraction]43.2 %Jermgt92.0-50.0UnUniversity Hospitals Beachwood Medical CenterComment on above:Performed By: #### [id number] ####[facility] ([facility])[address] ADAMGEISING[facility] COMMUNITY MEDICAL CENTERKleber[place], [place] [address]Gjjndoyghc (Bld) [Mass/Vol]14.1 g/tIFhksvk63.0-17.0UnUniversity Hospitals Beachwood Medical CenterComment on above:Performed By: #### [id number] ####[facility] ([facility])[address] [place] [address]CER (RBC) [Entitic mass] 32.6 evLecqka13.0-33.0UnUniversity Hospitals Beachwood Medical CenterComment on above: Performed By: #### [id number] ####[facility] ([facility])[address] [place] [place] [address]IVB (RBC) [Entitic vol]100.0 dLHgsy35.0-98.0UnUniversity Hospitals Beachwood Medical CenterComment on above:Performed By: #### [id number] ####[facility] ([facility])[address] [place] [place] [address]RKNG (PER 100 WBCS) BY AUTOMATED COUNT1.4 %Fsyw2TzlbmpeyheUniversity Hospitals Beachwood Medical CenterComment on above: Performed By: #### [id number] ####[facility] ([facility])[address] [place] [place] [address]STRBZPBRX (10*3/UL) IN BLOOD AUTOMATED TSSEN614 10*3/uLNormal 150-400UnUniversity Hospitals Beachwood Medical CenterComment on above:Performed By: #### [id number] ####[facility] ([facility])[address] [place] [place] [address]HXH (Bld) [#/Vol]4.32 10*6/uLNormal4.20-5.70UnUniversity Hospitals Beachwood Medical Center Comment on above:Performed By: #### [id number] ####[facility] ([facility])[address] [place] [address]VKT (Bld) [#/Vol]3.45 10*3/uLLow4.00-10.60 [facility] Medical CenterComment on above:Performed By: #### [id number] ####[facility] ([facility])[address] [address]Rxljf 07-17-2024 LabNormalUniversPremier Health Atrium Medical CenterMANUAL DIFFERENTIALon 07-17-2024 ANISOCYTOSIS PRESENCE IN BLOOD BY LIGHT MICROSCOPYModerateNormalUniversPremier Health Atrium Medical CenterComment on above:Performed By: #### [id number] ####[facility] ([facility])[address] [place], [place] [address]NRWWLZJWN (10*3/UL) IN BLOOD BY CALCULATION0.00 10*3/uLNormal0.00-0.20UnUniversity Hospitals Beachwood Medical CenterComment on above:Performed By: #### [id number] ####[facility] ([facility])[address] [place], [place] [address]TVMVOFZEE/100 LEUKOCYTES IN BLOOD BY AUTOMATED COUNT0.0 %Normal0.0-1.0UnUniversity Hospitals Beachwood Medical CenterComment on above:Performed By: #### [id number] ####[facility] ([facility])[address] [place], [place] [address]ZREHEIXIRZM (10*3/UL) IN BLOOD BY CALCULATION0.02 10*3/uL Normal0.00-0.50UnUniversity Hospitals Beachwood Medical CenterComment on above:Performed By: #### [id number] ####[facility] ([facility])[address] [place] [address] EOSINOPHILS/100 LEUKOCYTES IN BLOOD BY AUTOMATED COUNT0.7 %Normal0.0-6.0 [facility] CenterComment on above:Performed By: #### [id number] ####[facility] ([facility])[address] [place], [place] [address]GZSKEHJFHJE (10*3/UL) IN BLOOD BY CALCULATION0.21 10*3/uLLow1.20-4.00UnUniversity Hospitals Beachwood Medical CenterComment on above:Performed By: #### [id number] ####[facility] ([facility])[address] [place], [place] [address]KMFJQSJAXUZ/100 LEUKOCYTES IN BLOOD BY AUTOMATED COUNT6.0 %Low20.0-45.0UnUniversity Hospitals Beachwood Medical CenterComment on above:Performed By: #### [id number] ####[facility] ([facility])[address], [place] [address]IFBSIVPLQ (10*3/UL) IN BLOOD BY CALCUATION0.39 10*3/uLNormal 0.10-1.00UnUniversity Hospitals Beachwood Medical CenterComment on above:Performed By: #### [id number] ####[facility] ([facility])[address] [place] [address] MONOCYTES/100 LEUKOCYTES IN BLOOD BY AUTOMATED COUNT11.3 %Normal5.0-12.0 [facility] Medical CenterComment on above:Performed By: #### [id number] ####[facility] ([facility])[address] [place], [place] [address]GQAQCMQZSP (10*3/UL) IN BLOOD BY CALCULATION0.11 10*3/uLHigh0.00UnUniversity Hospitals Beachwood Medical CenterComment on above:Performed By: #### [id number] ####[facility] ([facility])[address] [place], [place] [address]SIPAZOVXSW/100 LEUKOCYTES IN BLOOD CELLAVISION3.3 %High0.0-0.0UnUniversity Hospitals Beachwood Medical CenterComment on above: Performed By: #### [id number] ####[facility] ([facility])[address] [place], [place] [address]FYSDDEOWYAF (10*3/UL) IN BLOOD BY CALCULATION2.7 10*3/uL Normal1.6-7.6UnUniversity Hospitals Beachwood Medical CenterComment on above:Performed By: #### [id number] ####[facility] ([facility])[address] [place] [address] NEUTROPHILS/100 LEUKOCYTES IN BLOOD BY AUTOMATED COUNT78.7 %High40.0-72.0 [facility] CenterComment on above:Performed By: #### [id number] ####[facility] ([facility])[address] [place], [place] [address]QAROLMONP RED BLOOD CELLS IN BLOOD BY LIGHT MICROSCOPYPresentNormalUniversPremier Health Atrium Medical CenterComment on above:Performed By: #### [id number] ####[facility] ([facility])[address] [place], [place] [address]VDESBV CELLS/100 LEUKOCYTES IN BLOOD0 %Jrfmpw3FafnjlfvusUniversity Hospitals Beachwood Medical CenterComment on above:Performed By: #### [id number] ####[facility] ([facility])[address] [place] [address] PLATELETS GIANT PRESENCE IN BLOOD BY LIGHT MICROSCOPYPresentNormalUniSt. Vincent HospitalComment on above:Performed By: #### [id number] ####[facility] ([facility])[address] [place], [place] [address]ZZFGWIZFZUKZQE (PRESENCE) IN BLOOD BY LIGHT MICROSCOPYSlightNormalUniSt. Vincent Hospital Comment on above:Performed By: #### [id number] ####[facility] ([facility])[address] [place], [place] [address]SJMOZUZDIAALE IN BLOOD BY LIGHT MICROSCOPYSlight NormalUnUniversity Hospitals Beachwood Medical CenterComment on above:Performed By: #### [id number] ####[facility] ([facility])[address] [place], [place] [address]CYRJZYN LYMPHOCYTES (10*3/UL) IN BLOOD BY CALCULATION0.00 10*3/uLNormal0.00UnUniversity Hospitals Beachwood Medical CenterComment on above:Performed By: #### [id number] ####[facility] ([facility])[address] [place], [place] [address]VWAALWT LYMPHOCYTES/100 LEUKOCYTES IN BLOOD CELLAVISION0.0 %Normal0.0-0.0UnUniversity Hospitals Beachwood Medical CenterComment on above:Performed By: #### [id number] ####[facility] ([facility])[address] [place], [place] [address]LQNGOCNKPT LEVELon 07-17-2024 Tacrolimus (Bld) [Mass/Vol]11.9 ng/mLNormal5.0-20.0UnUniversity Hospitals Beachwood Medical CenterComment on above:Result Comment: The [employer] Tacrolimus assay is a delayed one-step immunoassay for the quantitative determination of tacrolimus in human whole blood using the chemiluminescent microparticle immunoassay (CMIA) technology with flexible assay protocols, referred to as Chemiflex.Performed By: #### [id number] ####[facility] ([facility])[address] [place] [address] 36on [id number] you for letting us know.NormalUnUniversity Hospitals Beachwood Medical CenterBILIRUBIN, DIRECTon 04-62-5241Koyscmpdh [Mass/Vol]0.1 mg/dLNormal 0-0.2UnUniversity Hospitals Beachwood Medical CenterComment on above:Performed By: #### [id number] ####[facility] ([facility])[address] [place], [place] [address]AEM WITH AUTO DIFFERENTIALon 60-71-3617Pjbtknlaxjw distribution width (RBC) [Ratio]22.1 % High11.5-15.0UnUniversity Hospitals Beachwood Medical CenterComment on above:Performed By: #### [id number] ####[facility] ([facility])[address] [place] [address] ERYTHROCYTE MEAN CORPUSCULAR HEMOGLOBIN CONCENTRATION (G/DL) BY KCLMXXLLL39.7 g/bYNuevnt14.0-35.0UnUniversity Hospitals Beachwood Medical CenterComment on above:Performed By: #### [id number] ####[facility] ([facility])[address] [place], [place] [address]Pshmpsistb (Bld) [Volume fraction]41.9 %Ngccel69.0-50.0UnUniversity Hospitals Beachwood Medical CenterComment on above:Performed By: #### [id number] ####[facility] ([facility])[address] [place], [place] [address]Nirupyucbx (Bld) [Mass/Vol]14.1 g/dL Yqoiff26.0-17.0UnUniversity Hospitals Beachwood Medical CenterComment on above:Performed By: #### [id number] ####[facility] ([facility])[address] [place] [address] MCH (RBC) [Entitic mass]32.4 meFrbsyp95.0-33.0UnUniversity Hospitals Beachwood Medical CenterComment on above:Performed By: #### [id number] ####[facility] ([facility])[address] [place], [place] [address]HKK (RBC) [Entitic vol]96.3 fLNormal 82.0-98.0UnUniversity Hospitals Beachwood Medical CenterComment on above:Performed By: #### [id number] ####[facility] ([facility])[address] [address]GUMX (PER 100 WBCS) BY AUTOMATED COUNT0.0 %Jghqtl6PtyibyhcueUniversity Hospitals Beachwood Medical Center Comment on above:Performed By: #### [id number] ####[facility] ([facility])[address] [place] [address]XHMYCQNOX (10*3/UL) IN BLOOD AUTOMATED PFDFZ150 10*3/pIScncpo075-484CmmmyrxwhxUniversity Hospitals Beachwood Medical CenterComment on above: Performed By: #### [id number] ####[facility] ([facility])[address] [place] [address]VWO (Bld) [#/Vol]4.35 10*6/uLNormal4.20-5.70UnUniversity Hospitals Beachwood Medical CenterComment on above:Performed By: #### [id number] ####[facility] ([facility])[address] [place] [address]GDT (Bld) [#/Vol]1.08 10*3/uLInvalid Interpretation Code4.00-10.60[facility] Comment on above:Performed By: #### [id number] ####[facility] ([facility])[address] [place], [place] [address]NRTFLFAITMPOS METABOLIC PANELon 41-03-1762Hemtush [Mass/Vol]4.5 g/dLNormal3.5-5.7UnUniversity Hospitals Beachwood Medical CenterComment on above:Performed By: #### [id number] ####[facility] ([facility])[address] [place], [place] [address]UBN [Catalytic activity/Vol]167 U/RUwdx42-995XercqelzvxUniversity Hospitals Beachwood Medical CenterComment on above:Performed By: #### [id number] ####[facility] ([facility])[address] [place], [place] [address]VJE [Catalytic activity/Vol]11 U/L Normal7-52UnUniversity Hospitals Beachwood Medical CenterComment on above:Performed By: #### [id number] ####[facility] ([facility])[address] [place], [place] [address]Hegkt gap [Moles/Vol]9 mmol/LNormal7-20UnUniversity Hospitals Beachwood Medical CenterComment on above:Performed By: #### [id number] ####[facility] ([facility])[address], [place] [address]OVE [Catalytic activity/Vol]18 U/GLdndzv70-99XgdchmcvhnUniversity Hospitals Beachwood Medical CenterComment on above:Performed By: #### [id number] ####[facility] ([facility])[address] [place], [place] [address]Qfyiwwjsw [Mass/Vol]0.8 mg/dL Normal0.3-1.0UnUniversity Hospitals Beachwood Medical CenterComment on above:Performed By: #### [id number] ####[facility] ([facility])[address] [place] [address] Calcium [Mass/Vol]9.8 mg/dLNormal8.6-10.3UnUniversity [facility]als [facility] Comment on above:Performed By: #### [id number] ####[facility] ([facility])[address] [place], [place] [address]Mvmnrfmi [Moles/Vol]110 mmol/VEoor89-115ZqincaydcjUniversity Hospitals Beachwood Medical CenterComment on above:Performed By: #### [id number] ####[facility] ([facility])[address] [place], [place] [address]HQ0 [Moles/Vol]24 mmol/L Jnofuc67-97XnlwqbgdezUniversity Hospitals Beachwood Medical CenterComment on above:Performed By: #### [id number] ####[facility] ([facility])[address] [place] [address] Creatinine [Mass/Vol]1.78 mg/dLHigh0.70-1.30UnUniversity [facility]als [facility] Center Comment on above:Performed By: #### [id number] ####[facility] ([facility])[address] [place], [place] [address]GGUMRDJCJQ FILTRATION RATE ML/MIN/1.73 SQ M.NXMWKBNED32.1 mL/min/1.73m*2Low>60.0UnUniversity Hospitals Beachwood Medical CenterComment on above:Result Comment: The [facility]???s estimated glomerular filtration rate (eGFR) will no [...] potential consequences that do not disproportionately affect anyone group of individuals.Performed By: #### [id number] ####[facility] ([facility])[address] [place], [place] [address]Pydbsue [Mass/Vol]103 mg/cAAred22-622 [facility] CenterComment on above:Performed By: #### [id number] ####[facility] ([facility])[address]AMGE[facility] MEDICAL [place]ERKleber[place], [place] [address]Ekfxycrwy [Moles/Vol]5.0 mmol/LNormal3.5-5.1UnUniversity Hospitals Beachwood Medical CenterComment on above:Performed By: #### [id number] ####[facility] ([facility])[address] [place], [place] [address]Xjudbzd [Mass/Vol]6.9 g/dLNormal6.0-8.3UnUniversity Hospitals Beachwood Medical CenterComment on above:Performed By: #### [id number] ####[facility] ([facility])[address] [place], [place] [address]Onkrnr [Moles/Vol]138 mmol/LNormal 136-145UnUniversity Hospitals Beachwood Medical CenterComment on above:Performed By: #### [id number] ####[facility] ([facility])[address] [facility] [place], [place] [address]Ncfp nitrogen [Mass/Vol]18 mg/dLNormal7-25UnUniversity Hospitals Beachwood Medical CenterComment on above:Performed By: #### [id number] ####[facility] ([facility])[address] [place] [address]XUZH NITROGEN/CREATININE (MASS RATIO) IN SER/PLAS10.1Normal [facility] CenterComment on above:Performed By: #### [id number] ####[facility] ([facility])[address] [address]Cmsaxk-Afqe 74-66-5296Ujozvt-UpNormalUniversPremier Health Atrium Medical CenterLabon 17-34-10[address]Fjk NormalUnUniversity Hospitals Beachwood Medical CenterMANUAL DIFFERENTIALon 07-14-2024 ANISOCYTOSIS PRESENCE IN BLOOD BY LIGHT MICROSCOPYModerateNormalUniSt. Vincent HospitalComment on above:Performed By: #### [id number] ####[facility] ([facility])[address] [place] [address]MNSFVMNXF (10*3/UL) IN BLOOD BY CALCULATION0.02 10*3/uLNormal0.00-0.20UnUniversity Hospitals Beachwood Medical CenterComment on above:Performed By: #### [id number] ####[facility] ([facility])[address] [place] [address]ULRUVCFHZ/100 LEUKOCYTES IN BLOOD BY AUTOMATED COUNT1.9 %High0.0-1.0UnUniversity Hospitals Beachwood Medical CenterComment on above:Performed By: #### [id number] ####[facility] ([facility])[address] [place] [address]WPASFGCYRQJ (10*3/UL) IN BLOOD BY CALCULATION0.06 10*3/uL Normal0.00-0.50UnUniversity Hospitals Beachwood Medical CenterComment on above:Performed By: #### [id number] ####[facility] ([facility])[address] [place] [address] EOSINOPHILS/100 LEUKOCYTES IN BLOOD BY AUTOMATED COUNT5.7 %Normal0.0-6.0 [facility] CenterComment on above:Performed By: #### [id number] ####[facility] ([facility])[address] [place] [place] [address]NCUJLEXA GRANULOCYTES (10*3/UL) IN BLOOD BY CALCULATION0.02 10*3/uLNormal0.00-0.20 [facility] CenterComment on above:Performed By: #### [id number] ####[facility] ([facility])[address] [place] [place] [address]AHWARTZI GRANULOCYTES/100 LEUKOCYTES IN BLOOD BY AUTOMATED COUNT1.9 %High0.0-1.0 [facility] CenterComment on above:Performed By: #### [id number] ####[facility] ([facility])[address] [place] [address]LYTSDQCLWQC (10*3/UL) IN BLOOD BY CALCULATION0.03 10*3/uLLow1.20-4.00UnUniversity Hospitals Beachwood Medical CenterComment on above:Performed By: #### [id number] ####[facility] ([facility])[address] [place] [address]LKEPIOLQQIR/100 LEUKOCYTES IN BLOOD BY AUTOMATED COUNT2.5 %Low20.0-45.0UnUniversity Hospitals Beachwood Medical CenterComment on above:Performed By: #### [id number] ####[facility] ([facility])[address] [address]CNBDOBABD (10*3/UL) IN BLOOD BY CALCUATION0.22 10*3/uLNormal 0.10-1.00UnUniversity Hospitals [facility] Medical CenterComment on above:Performed By: #### [id number] ####[facility] ([facility])[address] [place] [address] MONOCYTES/100 LEUKOCYTES IN BLOOD BY AUTOMATED COUNT20.3 %High5.0-12.0UnUniversity Hospitals Beachwood Medical CenterComment on above:Performed By: #### [id number] ####[facility] ([facility])[address] [address]DEUFJXCLUJK (10*3/UL) IN BLOOD BY CALCULATION0.8 10*3/uLLow1.6-7.6UnUniversity [facility]als [facility] Center Comment on above:Performed By: #### [id number] ####[facility] ([facility])[address] [place], [place] [address]FQJASRYBZPW/100 LEUKOCYTES IN BLOOD BY AUTOMATED COUNT69.6 %Fcydnp18.0-72.0UnUniversity Hospitals Beachwood Medical CenterComment on above: Performed By: #### [id number] ####[facility] ([facility])[address], [place] [address]QTTMGKICV RED BLOOD CELLS IN BLOOD BY LIGHT MICROSCOPYPresent NormalUnUniversity Hospitals Beachwood Medical CenterComment on above:Performed By: #### [id number] ####[facility] ([facility])[address] [place], [place] [address]YAMTXF CELLS/100 LEUKOCYTES IN BLOOD0 %Fjuirr4KznfercyurUniversity Hospitals Beachwood Medical Center Comment on above:Performed By: #### [id number] ####[facility] ([facility])[address] [place], [place] [address]ZKPSAUPXL GIANT PRESENCE IN BLOOD BY LIGHT MICROSCOPYPresentNormalUniversPremier Health Atrium Medical CenterComment on above: Performed By: #### [id number] ####[facility] ([facility])[address] [place], [place] [address]ERCAPOGZYVHXFO (PRESENCE) IN BLOOD BY LIGHT MICROSCOPYSlight NormalUnUniversity Hospitals Beachwood Medical CenterComment on above:Performed By: #### [id number] ####[facility] ([facility])[address] [place] [address] POLYCHROMASIA IN BLOOD BY LIGHT MICROSCOPYSlightNormalUniSt. Vincent HospitalComment on above:Performed By: #### [id number] ####[facility] ([facility])[address] [place], [place] [address]YDAJEXL LYMPHOCYTES (10*3/UL) IN BLOOD BY CALCULATION0.00 10*3/uLNormal0.00UnUniversity Hospitals Beachwood Medical CenterComment on above:Performed By: #### [id number] ####[facility] ([facility])[address] [place], [place] [address]FABAIDO LYMPHOCYTES/100 LEUKOCYTES IN BLOOD CELLAVISION0.0 % Normal0.0-0.0UnUniversity Hospitals Beachwood Medical CenterComment on above:Performed By: #### [id number] ####[facility] ([facility])[address] [place] [address] PHOSPHORUSon [id number] [Mass/Vol]1.5 mg/dLLow1.9-2.7UnUniversity Hospitals Beachwood Medical CenterComment on above:Performed By: #### [id number] ####[facility] ([facility])[address] [place] [address]Ifkxdddpw By: #### [id number] ####[facility] ([facility])[address] [place] [address]JPNRFEWGDE LEVELon [id number] (Bld) [Mass/Vol]8.5 ng/mLNormal5.0-20.0UnUniversity Hospitals Beachwood Medical CenterComment on above:Result Comment: The [employer] Tacrolimus assay is a delayed one-step immunoassay for the quantitative determination of tacrolimus in human whole blood using the chemiluminescent microparticle immunoassay (CMIA) technology with flexible assay protocols, referred to as Chemiflex.Performed By: #### [id number] ####[facility] ([facility])[address] [place] [address]XUKD ACIDon [id number] [Mass/Vol]5.0 mg/dLNormal4.4-7.6UnUniversity Hospitals Beachwood Medical CenterComment on above:Performed By: #### [id number] ####[facility] ([facility])[address] [place] [id number] [id number] by: YVES SANTOS on: 07/11/2024 04:08 PM Modules accepted: OrdersNormalUniversity Protestant HospitalAbstracton 69-63-0309MmiwgvsbNgernhVrdtdgqqus Protestant HospitalBILIRUBIN, DIRECTon 73-88-5814Pfjacekxp [Mass/Vol]0.2 mg/dLNormal0-0.2UnUniversity Hospitals Beachwood Medical CenterComment on above:Performed By: #### [id number] ####[facility] ([facility])[address] [place] [address]ODC WITH AUTO DIFFERENTIALon 21-53-5642Ggyuunykbou distribution width (RBC) [Ratio]22.3 %High11.5-15.0 [facility] Medical CenterComment on above:Performed By: #### [id number] ####[facility] ([facility])[address] [place] [address]KJBSXMIBKWN MEAN CORPUSCULAR HEMOGLOBIN CONCENTRATION (G/DL) BY TBGETBAJX66.2 g/dLNormal 32.0-35.0UnUniversity Hospitals Beachwood Medical CenterComment on above:Performed By: #### [id number] ####[facility] ([facility])[address] [place] [address] Hematocrit (Bld) [Volume fraction]41.3 %Lxdhyd42.0-50.0UnUniversity Hospitals Beachwood Medical CenterComment on above:Performed By: #### [id number] ####[facility] ([facility])[address] [place] [address]Sfzlqjnopx (Bld) [Mass/Vol]13.7 g/dL Kaepls54.0-17.0UnUniversity Hospitals Beachwood Medical CenterComment on above:Performed By: #### [id number] ####[facility] ([facility])[address] [place] [address] MCH (RBC) [Entitic mass]32.5 xaSycgtg30.0-33.0UnUniversity Hospitals Beachwood Medical CenterComment on above:Performed By: #### [id number] ####[facility] ([facility])[address] [place] [address]CGH (RBC) [Entitic vol]97.9 fLNormal 82.0-98.0UnUniversity Hospitals Beachwood Medical CenterComment on above:Performed By: #### [id number] ####[facility] ([facility])[address] [place] [address]UMNR (PER 100 WBCS) BY AUTOMATED COUNT2.1 %Uscf7GvvjnxzlgrUniversity Hospitals Beachwood Medical Center Comment on above:Performed By: #### [id number] ####[facility] ([facility])[address] [place] [address]EXLXVXUFQ (10*3/UL) IN BLOOD AUTOMATED [id number] 10*3/lWEnjppl583-902PjbxthznlfUniversity Hospitals Beachwood Medical CenterComment on above: Performed By: #### [id number] ####[facility] ([facility])[address] [address]YXN (Bld) [#/Vol]4.22 10*6/uLNormal4.20-5.70UnUniversity Hospitals Beachwood Medical CenterComment on above:Performed By: #### [id number] ####[facility] ([facility])[address] [address]HLQ (Bld) [#/Vol]0.96 10*3/uLInvalid Interpretation Code4.00-10.60UnUniversity Hospitals Beachwood Medical Center Comment on above:Performed By: #### [id number] ####[facility] ([facility])[address] [place] [address]Wgrtykzipjs distribution width (RBC) [Ratio]21.9 % High11.5-15.0UnUniversity Hospitals Beachwood Medical CenterComment on above:Performed By: #### [id number] ####[facility] ([facility])[address] [place] [address] ERYTHROCYTE MEAN CORPUSCULAR HEMOGLOBIN CONCENTRATION (G/DL) BY ATFIZYFGY73.8 g/bQInkbmk18.0-35.0UnUniversity Hospitals Beachwood Medical CenterComment on above:Performed By: #### [id number] ####[facility] ([facility])[address], [place] [address]Bixlpvycci (Bld) [Volume fraction]39.9 %Vymifi84.0-50.0UnUniversity Hospitals Beachwood Medical CenterComment on above:Performed By: #### [id number] ####[facility] ([facility])[address] [place] [address]Rwviboaezk (Bld) [Mass/Vol]13.5 g/dL Ovtzmv77.0-17.0UnUniversity Hospitals Beachwood Medical CenterComment on above:Performed By: #### [id number] ####[facility] ([facility])[address] [place] [address] MCH (RBC) [Entitic mass]32.6 khApqyhu54.0-33.0UnUniversity Hospitals Beachwood Medical CenterComment on above:Performed By: #### [id number] ####[facility] ([facility])[address] [place] [address]ZXG (RBC) [Entitic vol]96.4 fLNormal 82.0-98.0UnUniversity Hospitals Beachwood Medical CenterComment on above:Performed By: #### [id number] ####[facility] ([facility])[address] [place] [address]BXGB (PER 100 WBCS) BY AUTOMATED COUNT3.7 %Jedh7QhbptsjlqxUniversity Hospitals Beachwood Medical Center Comment on above:Performed By: #### [id number] ####[facility] ([facility])[address] [place] [address]AXBDKEJFW (10*3/UL) IN BLOOD AUTOMATED XAIGY380 10*3/pEOwnbum967-539QbqaumygxxUniversity Hospitals Beachwood Medical CenterComment on above: Performed By: #### [id number] ####[facility] ([facility])[address] [place] [address]FXD (Bld) [#/Vol]4.14 10*6/uLLow4.20-5.70UnUniversity Hospitals Beachwood Medical CenterComment on above:Performed By: #### [id number] ####[facility] ([facility])[address] [place] [address]XIU (Bld) [#/Vol]0.81 10*3/uLInvalid Interpretation Code4.00-10.60UnUniversity Hospitals Beachwood Medical CenterComment on above:Performed By: #### [id number] ####[facility] ([facility])[address] [place] [address]PWQ DNA, QUANTITATIVE, NAAT, PLASMAon 07-22-1527MHP QNT BY NAAT, PLASMA INTERPNot detectedNormalNot DetectedUnUniversity Hospitals Beachwood Medical CenterComment on above:Result Comment: INTERPRETIVE INFORMATION: CMV by Quantitative NAAT, PlasmaThe quantitative range ofthis test is 1.54 - 7.00 log IU/mL (34.5- 10,000,000 IU/mL).An interpretation of Not Detected does not rule out the presenceof inhibitors or CMV DNA concentration below the level ofdetection of theassay. Care should be taken in the interpretationof any single viral load determination.International standardization has improved comparability of assayresults across laboratories, but discrepanciesstill exist due tocommutability issues with the standard.Performed By: [facility] [place] [id number] Director: Venkata Leal MD, PhDCLIA Number: [id number] By: #### [id number] ####[facility] ([facility])[address] [place], [place] [address]YAZ QNT BY NAAT, PLASMA IU/MLNot detectedNormalUniversPremier Health Atrium Medical CenterComment on above:Performed By: #### [id number] ####[facility] ([facility])[address] [place] [address] CMV QNT BY NAAT, PLASMA LOG IU/MLNot detectedNormalUniversPremier Health Atrium Medical CenterComment on above:Performed By: #### [id number] ####[facility] ([facility])[address], [place] [address]ROVRJSNZJWYMC METABOLIC PANELon 07-11-2024 Albumin [Mass/Vol]4.4 g/dLNormal3.5-5.7[facility] Comment on above:Performed By: #### [id number] ####[facility] ([facility])[address] [facility] [place] [address]ZEA [Catalytic activity/Vol]166 U/QIfsi53-580 [facility] CenterComment on above:Performed By: #### [id number] ####[facility] ([facility])[address] [place], [place] [address]AUC [Catalytic activity/Vol]13 U/LNormal7-52UnUniversity Hospitals Beachwood Medical CenterComment on above:Performed By: #### [id number] ####[facility] ([facility])[address] [place], [place] [address]Epeuc gap [Moles/Vol]9 mmol/LNormal7-20UnUniversity Hospitals Beachwood Medical CenterComment on above:Performed By: #### [id number] ####[facility] ([facility])[address] [place], [place] [address]QMS [Catalytic activity/Vol]15 U/L Eeeyyu90-52BhqfsvrbtiUniversity Hospitals Beachwood Medical CenterComment on above:Performed By: #### [id number] ####[facility] ([facility])[address] [place] [address] Bilirubin [Mass/Vol]0.7 mg/dLNormal0.3-1.0UnUniversity Hospitals [facility] Center Comment on above:Performed By: #### [id number] ####[facility] ([facility])[address] [place], [place] [address]Ekawrfe [Mass/Vol]9.4 mg/dLNormal8.6-10.3UnUniversity Hospitals Beachwood Medical CenterComment on above:Performed By: #### [id number] ####[facility] ([facility])[address] [place], [place] [address]Dwpaeron [Moles/Vol]112 mmol/HMerr84-128AtkbeogtuvUniversity Hospitals Beachwood Medical CenterComment on above:Performed By: #### [id number] ####[facility] ([facility])[address] [place] [address] CO2 [Moles/Vol]19 mmol/HKhr08-20AlvdvpwcifUniversity Hospitals Beachwood Medical CenterComment on above:Performed By: #### [id number] ####[facility] ([facility])[address] [place], [place] [address]Jefqjdhikv [Mass/Vol]1.58 mg/dLHigh0.70-1.30UnUniversity Hospitals Beachwood Medical CenterComment on above:Performed By: #### [id number] ####[facility] ([facility])[address] [place], [place] [address]EUVFBSGQLI FILTRATION RATE ML/MIN/1.73 SQ M.ABKUBPGOS00.3 mL/min/1.73m*2Low>60.0UnUniversity Hospitals Beachwood Medical CenterComment on above:Result Comment: The [facility]???s estimated glomerular filtration rate (eGFR) will no [...] potential consequences that do not disproportionately affect anyone group of individuals.Performed By: #### [id number] ####[facility] ([facility])[address] [place], [place] [address]Vjbfywn [Mass/Vol]98 mg/iORsladq02-128KpdvwkigkaUniversity Hospitals Beachwood Medical CenterComment on above:Performed By: #### [id number] ####[facility] ([facility])[address] [place], [place] [address]Ocrvbhgly [Moles/Vol]4.4 mmol/LNormal3.5-5.1UnUniversity Hospitals Beachwood Medical CenterComment on above:Performed By: #### [id number] ####[facility] ([facility])[address] [place], [place] [address]Fatbtuj [Mass/Vol]6.5 g/dLNormal 6.0-8.3UnUniversity Hospitals Beachwood Medical CenterComment on above:Performed By: #### [id number] ####[facility] ([facility])[address] [place], [place] [address]Aqoxfl [Moles/Vol]136 mmol/GOxwdhn862-128DplfwbrlkxUniversity Hospitals Beachwood Medical CenterComment on above:Performed By: #### [id number] ####[facility] ([facility])[address] [place], [place] [address]Lbfn nitrogen [Mass/Vol]16 mg/dLNormal7-25UnUniversity Hospitals Beachwood Medical CenterComment on above:Performed By: #### [id number] ####[facility] ([facility])[address] [place], [place] [address]OEWA NITROGEN/CREATININE (MASS RATIO) IN SER/PLAS10.1NormalUnUniversity Hospitals Beachwood Medical CenterComment on above: Performed By: #### [id number] ####[facility] ([facility])[address] [place] [address]Dtlmejvafrslukw 93-86-2360BwqjkcfebedksSghicoFezcswdsfl Protestant HospitalFollow-Upon 10-40-1860Pcopfv-UpNormalUniversity Protestant HospitalLabon 24-25-3085KmvDbhxlgUgvntkjmxt Protestant HospitalLabNormor University Protestant HospitalLetter (Out)on 35-76-0261Qlduur (Out)Normal [facility] Medical CenterMAGNESIUMon 83-61-0927Cutnagsri [Mass/Vol]1.6 mg/dLLow1.9-2.7UnUniversity Hospitals Beachwood Medical CenterComment on above:Performed By: #### [id number] ####[facility] ([facility])[address] [place] [address] MANUAL DIFFERENTIALon 14-18-9179XKBGHUOKKHUY PRESENCE IN BLOOD BY LIGHT MICROSCOPYModerateNoRegency Hospital Cleveland EastComment on above: Performed By: #### [id number] ####[facility] ([facility])[address] [place], [place] [address]OFSTVXUMD (10*3/UL) IN BLOOD BY CALCULATION0.00 10*3/uLNormal 0.00-0.20UnUniversity Hospitals Beachwood Medical CenterComment on above:Performed By: #### [id number] ####[facility] ([facility])[address] [place] [address] BASOPHILS/100 LEUKOCYTES IN BLOOD BY AUTOMATED COUNT0.0 %Normal0.0-1.0UnUniversity Hospitals Beachwood Medical CenterComment on above:Performed By: #### [id number] ####[facility] ([facility])[address] [place], [place] [address]PBAZOTIFPOR (10*3/UL) IN BLOOD BY CALCULATION0.01 10*3/uLNormal0.00-0.50UnUniversity Hospitals Beachwood Medical CenterComment on above:Performed By: #### [id number] ####[facility] ([facility])[address] [place] [address]SUREHACOWGE/100 LEUKOCYTES IN BLOOD BY AUTOMATED COUNT1.3 %Normal0.0-6.0UnUniversity Hospitals Beachwood Medical CenterComment on above:Performed By: #### [id number] ####[facility] ([facility])[address] [address]CIQCIABS GRANULOCYTES (10*3/UL) IN BLOOD BY CALCULATION0.00 10*3/uLNormal0.00-0.20UnUniversity Hospitals Beachwood Medical CenterComment on above: Performed By: #### [id number] ####[facility] ([facility])[address] [address]TFAHHJOD GRANULOCYTES/100 LEUKOCYTES IN BLOOD BY AUTOMATED COUNT0.0 %Normal0.0-1.0UnUniversity Hospitals Beachwood Medical CenterComment on above: Performed By: #### [id number] ####[facility] ([facility])[address] [place] [address]TXQGGZJBECF (10*3/UL) IN BLOOD BY CALCULATION0.10 10*3/uLLow 1.20-4.00UnUniversity Hospitals Beachwood Medical CenterComment on above:Performed By: #### [id number] ####[facility] ([facility])[address] [place] [address] LYMPHOCYTES/100 LEUKOCYTES IN BLOOD BY AUTOMATED COUNT10.5 %Low20.0-45.0 [facility] CenterComment on above:Performed By: #### [id number] ####[facility] ([facility])[address] [address]JHJQCBFGD (10*3/UL) IN BLOOD BY CALCUATION0.15 10*3/uLNormal0.10-1.00UnUniversity Hospitals Beachwood Medical CenterComment on above:Performed By: #### [id number] ####[facility] ([facility])[address] [place], [place] [address]SZKJOQSPG/100 LEUKOCYTES IN BLOOD BY AUTOMATED COUNT15.2 %High5.0-12.0UnUniversity Hospitals Beachwood Medical CenterComment on above:Performed By: #### [id number] ####[facility] ([facility])[address] [place], [place] [address]ONPJPGXKZQQ (10*3/UL) IN BLOOD BY CALCULATION0.7 10*3/uLLow 1.6-7.6UnUniversity Hospitals Beachwood Medical CenterComment on above:Performed By: #### [id number] ####[facility] ([facility])[address] [place] [address] NEUTROPHILS/100 LEUKOCYTES IN BLOOD BY AUTOMATED COUNT73.0 %High40.0-72.0 [facility] CenterComment on above:Performed By: #### [id number] ####[facility] ([facility])[address], [place] [address]XGBQNWMZZ RED BLOOD CELLS IN BLOOD BY LIGHT MICROSCOPYPresentNoRegency Hospital Cleveland EastComment on above:Performed By: #### [id number] ####[facility] ([facility])[address], [place] [address]CCTWEP CELLS/100 LEUKOCYTES IN BLOOD0 %Bgmdiv6JkpbkcqiqbUniversity Hospitals Beachwood Medical CenterComment on above:Performed By: #### [id number] ####[facility] ([facility])[address] [place] [address] PLATELETS GIANT PRESENCE IN BLOOD BY LIGHT MICROSCOPYPresentNoRegency Hospital Cleveland EastComment on above:Performed By: #### [id number] ####[facility] ([facility])[address], [place] [address]HSEWACFPQYKMVR (PRESENCE) IN BLOOD BY LIGHT MICROSCOPYSlightNoRegency Hospital Cleveland East Comment on above:Performed By: #### [id number] ####[facility] ([facility])[address], [place] [address]MCUINZUUHYKQT IN BLOOD BY LIGHT MICROSCOPYSlight NormalUnUniversity Hospitals Beachwood Medical CenterComment on above:Performed By: #### [id number] ####[facility] ([facility])[address], [place] [address]DKKCNLF LYMPHOCYTES (10*3/UL) IN BLOOD BY CALCULATION0.00 10*3/uLNormal0.00UnUniversity Hospitals Beachwood Medical CenterComment on above:Performed By: #### [id number] ####[facility] ([facility])[address], [place] [address]THULVXH LYMPHOCYTES/100 LEUKOCYTES IN BLOOD CELLAVISION0.0 %Normal0.0-0.0UnUniversity Hospitals Beachwood Medical CenterComment on above:Performed By: #### [id number] ####[facility] ([facility])[address], [place] [address]FWJATCOERWKN PRESENCE IN BLOOD BY LIGHT MICROSCOPYModerateNormalUniSt. Vincent HospitalComment on above:Performed By: #### [id number] ####[facility] ([facility])[address], [place] [address]PTYCZLFTB (10*3/UL) IN BLOOD BY CALCULATION0.00 10*3/uLNormal 0.00-0.20UnUniversity Hospitals Beachwood Medical CenterComment on above:Performed By: #### [id number] ####[facility] ([facility])[address] [place] [address] BASOPHILS/100 LEUKOCYTES IN BLOOD BY AUTOMATED COUNT0.6 %Normal0.0-1.0UnUniversity Hospitals Beachwood Medical CenterComment on above:Performed By: #### [id number] ####[facility] ([facility])[address], [place] [address]IOFJEXSQSON (10*3/UL) IN BLOOD BY CALCULATION0.04 10*3/uLNormal0.00-0.50UnUniversity Hospitals Beachwood Medical CenterComment on above:Performed By: #### [id number] ####[facility] ([facility])[address] [place], [place] [address]MEOCFFFIBQT/100 LEUKOCYTES IN BLOOD BY AUTOMATED COUNT5.2 %Normal0.0-6.0UnUniversity Hospitals Beachwood Medical CenterComment on above:Performed By: #### [id number] ####[facility] ([facility])[address] [place], [place] [address]HNANKXBE GRANULOCYTES (10*3/UL) IN BLOOD BY CALCULATION0.00 10*3/uLNormal0.00-0.20UnUniversity Hospitals Beachwood Medical CenterComment on above: Performed By: #### [id number] ####[facility] ([facility])[address] [place] [address]SWNUIGWC GRANULOCYTES/100 LEUKOCYTES IN BLOOD BY AUTOMATED COUNT0.0 %Normal0.0-1.0UnUniversity Hospitals Beachwood Medical CenterComment on above: Performed By: #### [id number] ####[facility] ([facility])[address] [place] [address]NVJVKUGUSUX (10*3/UL) IN BLOOD BY CALCULATION0.05 10*3/uLLow 1.20-4.00UnUniversity Hospitals [facility] Medical CenterComment on above:Performed By: #### [id number] ####[facility] ([facility])[address] [place] [address] LYMPHOCYTES/100 LEUKOCYTES IN BLOOD BY AUTOMATED COUNT5.8 %Low20.0-45.0 [facility] CenterComment on above:Performed By: #### [id number] ####[facility] ([facility])[address] [place] [address]XZBZRSNPU (10*3/UL) IN BLOOD BY CALCUATION0.15 10*3/uLNormal0.10-1.00UnUniversity Hospitals Beachwood Medical CenterComment on above:Performed By: #### [id number] ####[facility] ([facility])[address] [facility] [place] [address]GXHQJLQLB/100 LEUKOCYTES IN BLOOD BY AUTOMATED COUNT18.7 %High5.0-12.0UnUniversity Hospitals Beachwood Medical CenterComment on above:Performed By: #### [id number] ####[facility] ([facility])[address] [facility] [place] [place], [place] [address]FVNHTACIQXH (10*3/UL) IN BLOOD BY CALCULATION0.6 10*3/uLLow 1.6-7.6UnUniversity Hospitals Beachwood Medical CenterComment on above:Performed By: #### [id number] ####[facility] ([facility])[address] [place] [address] NEUTROPHILS/100 LEUKOCYTES IN BLOOD BY AUTOMATED COUNT69.7 %Fsmoxm25.0-72.0 [facility] CenterComment on above:Performed By: #### [id number] ####[facility] ([facility])[address] [place], [place] [address]TWDYWAGBA RED BLOOD CELLS IN BLOOD BY LIGHT MICROSCOPYPresentNormalUniSt. Vincent HospitalComment on above:Performed By: #### [id number] ####[facility] ([facility])[address] [place], [place] [address]ZLGIRK CELLS/100 LEUKOCYTES IN BLOOD0 %Ijdwak8NifacprbomUniversity Hospitals Beachwood Medical CenterComment on above:Performed By: #### [id number] ####[facility] ([facility])[address] [place] [address] PLATELETS GIANT PRESENCE IN BLOOD BY LIGHT MICROSCOPYPresentNormalUniSt. Vincent HospitalComment on above:Performed By: #### [id number] ####[facility] ([facility])[address] [place], [place] [address]CWZMADGZUASNPM (PRESENCE) IN BLOOD BY LIGHT MICROSCOPYSlightNormalUniSt. Vincent Hospital Comment on above:Performed By: #### [id number] ####[facility] ([facility])[address] [place], [place] [address]VZQITJPXPWGNQ IN BLOOD BY LIGHT MICROSCOPYSlight NormalUnUniversity Hospitals Beachwood Medical CenterComment on above:Performed By: #### [id number] ####[facility] ([facility])[address] [place], [place] [address]VTMCRSV LYMPHOCYTES (10*3/UL) IN BLOOD BY CALCULATION0.00 10*3/uLNormal0.00UnUniversity Hospitals Beachwood Medical CenterComment on above:Performed By: #### [id number] ####[facility] ([facility])[address] [place], [place] [address]FYHCMFA LYMPHOCYTES/100 LEUKOCYTES IN BLOOD CELLAVISION0.0 %Normal0.0-0.0UnUniversity Hospitals Beachwood Medical CenterComment on above:Performed By: #### [id number] ####[facility] ([place])[address] [place] [address]Qgazeh Onlyon 54-42-0741Cyauda Only NormalUnUniversity Hospitals Beachwood Medical CenterPATHOLOGY REVIEWon 24-28-4006DFXXGSBML REVIEW . NormalUnUniversity Hospitals Beachwood Medical CenterComment on above:Performed By: #### [id number] ####[facility] ([facility])[address] [place] [address] PHOSPHORUSon 52-29-4154Henkknpov [Mass/Vol]1.8 mg/dLLow2.5-5.0UnUniversity Hospitals Beachwood Medical CenterComment on above:Performed By: #### [id number] ####[facility] ([facility])[place] [place] [address]VJEBDO ANTIGEN CLASS Ion [id number] SCREEN COMMENTSNo Class I donor specific antibody identifiedNoal [facility] CenterComment on above:Performed By: #### [id number] ####[facility] TISSUE TYPING (H[place] [address] USACLASS I TESTED [id number] of Toledo Medical CenterComment on above:Performed By: #### [id number] ####[facility] TISSUE TYPING (HISTOTRAC)[address] [place] [address] USASIGNED BYSigned by Terrance Figueroa CHT([facility]) COURTNEY(ASCP), Upper Cutter Transplant ImmunologyNormalUAvita Health System Bucyrus HospitalComment on above:Result Comment: Class I Antigen MicrobeadsPerformed By: #### [id number] ####[facility] TISSUE TYPING (HISTOTRAC)[address] [place] [address] USAPerformed By: #### [id number] ####[facility] TISSUE TYPING (HISTOTRAC)[address] [place] [address] USASINGLE ANTIGEN CLASS 1 TEST METHODClass I Single AntigenNormalUniSt. Vincent HospitalComment on above: Performed By: #### [id number] ####[facility] TISSUE TYPING (HISTOTRAC)[address] [place] [address] USASINGLE ANTIGEN CLASS IIon [id number] SCREEN COMMENTSNo Class II donor specific antibody identifiedNormalUniSt. Vincent HospitalCombeaumont hospital on above:Performed By: #### [id number] ####[facility] TISSUE TYPING (HISTOTRAC)[address] [place] [address] USACLASS II TESTED DATE [id number] Hospital Cleveland EastCombeaumont hospital on above: Performed By: #### [id number] ####[facility] TISSUE TYPING (HISTOTRAC)[address] [place] [address] USASINGLE ANTIGEN CLASS 2 TEST METHODClass II Single Antigen NormalUnUniversity Hospitals Beachwood Medical CenterComment on above:Result Comment: Class II Antigen MicrobeadsPerformed By: #### [id number] ####[facility] TISSUE TYPING (HISTOTRAC)[address] [place] [address] USATACROLIMUS LEVELon 07-11-2024 Tacrolimus (Bld) [Mass/Vol]10.8 ng/mLNormal5.0-20.0UnUniversity Hospitals Beachwood Medical CenterCombeaumont hospital on above:Result Comment: The [employer] Tacrolimus assay is a delayed one-step immunoassay for the quantitative determination of tacrolimus in human whole blood using the chemiluminescent microparticle immunoassay (CMIA) technology with flexible assay protocols, referred to as Chemiflex.Performed By: #### [id number] ####[facility] LAB (BEAKER)[address] [place] [address] URIC ACIDon 74-58-5631Xfdrxsohm [Mass/Vol]4.1 mg/dLLow4.4-7.6UnUniversity Hospitals Beachwood Medical CenterComment on above:Performed By: #### [id number] ####[facility] LAB (BEAKER)[address] [place], [place] [address]Jkamm 92-91-7061AgwOaznqe [facility] Medical CenterTACROLIMUS LEVELon 80-14-8238Nkifsenatc (Bld) [Mass/Vol]9.0 ng/mLNormal5.0-20.0UnUniversity Hospitals Beachwood Medical CenterComment on above:Result Comment: The [employer] Tacrolimus assay is a delayed one- step immunoassay for the quantitative determination of tacrolimus in human whole blood using the chemiluminescent microparticle immunoassay (CMIA) technology with flexible assay protocols, referred to as Chemiflex.Performed By: #### [id number] ####[facility] LAB ([facility])[address] [place] [address] BILIRUBIN, DIRECTon 33-17-1656Dzvijuhny [Mass/Vol]0.1 mg/dLNormal0-0.2UnUniversity Hospitals Beachwood Medical CenterComment on above:Performed By: #### [id number] ####[facility] LAB ([facility])[address] [place], [place] [address]YJY WITH AUTO DIFFERENTIALon 18-45-7109Dthzygcuxtm distribution width (RBC) [Ratio]20.9 %High 11.5-15.0UnUniversity Hospitals Beachwood Medical CenterComment on above:Performed By: #### [id number] ####[facility] LAB ([facility])[address] [place] [address] ERYTHROCYTE MEAN CORPUSCULAR HEMOGLOBIN CONCENTRATION (G/DL) BY NYBASWRKQ50.6 g/hAGdyilg66.0-35.0UnUniversity Hospitals Beachwood Medical CenterComment on above:Performed By: #### [id number] ####[facility] LAB ([facility])[address] [facility], [place] [address]Fhrhliwsub (Bld) [Volume fraction]41.4 %Lhrmqm67.0-50.0UnUniversity Hospitals Beachwood Medical CenterComment on above:Performed By: #### [id number] ####[facility] ([facility])[address] [facility], [place] [address]Gjshwtdyhn (Bld) [Mass/Vol]13.5 g/dL Rsmtfs02.0-17.0UnUniversity Hospitals Beachwood Medical CenterComment on above:Performed By: #### [id number] ####[facility] ([facility])[address] [place] [address] MCH (RBC) [Entitic mass]31.5 kaOlropo74.0-33.0UnUniversity Hospitals Beachwood Medical CenterComment on above:Performed By: #### [id number] ####[facility] ([facility])[address] [place] [address]SFK (RBC) [Entitic vol]96.5 fLNormal 82.0-98.0UnUniversity Hospitals Beachwood Medical CenterComment on above:Performed By: #### [id number] ####[facility] ([facility])[address] [address]NJLP (PER 100 WBCS) BY AUTOMATED COUNT0.3 %Prri0SbvoikaccgUniversity Hospitals Beachwood Medical Center Comment on above:Performed By: #### [id number] ####[facility] ([facility])[address] [place] [address]ASFNAFWZN (10*3/UL) IN BLOOD AUTOMATED [id number] 10*3/fIYaztzi015-090XmleryskxhUniversity Hospitals Beachwood Medical CenterComment on above: Performed By: #### [id number] ####[facility] ([facility])[address] [place] [address]YCO (Bld) [#/Vol]4.29 10*6/uLNormal4.20-5.70UnUniversity Hospitals Beachwood Medical CenterComment on above:Performed By: #### [id number] ####[facility] ([facility])[address] [place] [address]AHN (Bld) [#/Vol]5.96 10*3/uLNormal4.00-10.60UnUniversity Hospitals Beachwood Medical CenterComment on above: Performed By: #### [id number] ####[facility] ([facility])[address] [place] [address]BVOLGRRYBAEWN METABOLIC PANELon 07-90-1567Svudpfz [Mass/Vol] 4.5 g/dLNormal3.5-5.7UnUniversity Hospitals Beachwood Medical CenterComment on above: Performed By: #### [id number] ####[facility] (BEAKER)[address] [place], [place] [address]YSS [Catalytic activity/Vol]198 U/FMemn77-284OxtzalftlhUniversity Hospitals Beachwood Medical CenterComment on above:Performed By: #### [id number] ####[facility] (BE[facility]ANNER)[address] [place], [place] [address]TZT [Catalytic activity/Vol]12 U/L Normal7-52UnUniversity Hospitals Beachwood Medical CenterComment on above:Performed By: #### [id number] ####[facility] ([facility])[address] [place], [place] [address]Yqxts gap [Moles/Vol]9 mmol/LNormal7-20UnUniversity Hospitals Beachwood Medical CenterComment on above:Performed By: #### [id number] ####[facility] ([facility])[address] [place], [place] [address]KSE [Catalytic activity/Vol]14 U/VRyculm78-33OqpjgqhzbkUniversity Hospitals Beachwood Medical CenterComment on above:Performed By: #### [id number] ####[facility] ([facility])[address] [place], [place] [address]Nioebgoyg [Mass/Vol]0.6 mg/dL Normal0.3-1.0UnUniversity Hospitals Beachwood Medical CenterComment on above:Performed By: #### [id number] ####[facility] ([facility])[address] [place] [address] Calcium [Mass/Vol]9.3 mg/dLNormal8.6-10.3UnUniversity [facility] Center Comment on above:Performed By: #### [id number] ####[facility] (BEAKER)[address] [place], [place] [address]Tlkpfgcg [Moles/Vol]114 mmol/KUpzj76-029MvdfernbggUniversity Hospitals Beachwood Medical CenterComment on above:Performed By: #### [id number] ####[facility] (BEAKER)[address] [place], [place] [address]JO7 [Moles/Vol]22 mmol/L Chxnkc50-66WtcilziyogUniversity Hospitals Beachwood Medical CenterComment on above:Performed By: #### [id number] ####[facility] ([facility])[address] [place] [address] Creatinine [Mass/Vol]1.95 mg/dLHigh0.70-1.30UnUniversity [facility] Center Comment on above:Performed By: #### [id number] ####[facility] ([facility])[address] [place] [address]HVRCRAJDJW FILTRATION RATE ML/MIN/1.73 SQ M.GWHXWQBQV93.2 mL/min/1.73m*2Low>60.0UnUniversity Hospitals Beachwood Medical CenterComment on above:Result Comment: The [facility]???s estimated glomerular filtration rate (eGFR) will no [...] potential consequences that do not disproportionately affect anyone group of individuals.Performed By: #### [id number] ####[facility] ([facility])[address] [address]Dvjgenf [Mass/Vol]83 mg/wCPwemqg42-571 [facility] Medical CenterComment on above:Performed By: #### [id number] ####[facility] ([facility])[address] [address]Bkejgoiqh [Moles/Vol]4.9 mmol/LNormal3.5-5.1UnUniversity Hospitals Beachwood Medical CenterComment on above:Performed By: #### [id number] ####[facility] ([facility])[address] [address]Ebwaxbr [Mass/Vol]6.6 g/dLNormal6.0-8.3UnUniversity Hospitals Beachwood Medical CenterComment on above:Performed By: #### [id number] ####[facility] ([facility])[address] [address]Hnohpv [Moles/Vol]140 mmol/LNormal 136-145University [facility] Parma Medical CenterComment on above:Performed By: #### [id number] ####[facility] ([facility])[address] [address]Egrk nitrogen [Mass/Vol]18 mg/dLNormal7-25UnUniversity Hospitals Beachwood Medical CenterComment on above:Performed By: #### [id number] ####[facility] ([facility])[address], [place] [address]ZAAY NITROGEN/CREATININE (MASS RATIO) IN SER/PLAS9.2Normal [facility] Medical CenterComment on above:Performed By: #### [id number] ####[facility] ([facility])[address] [place] [address]FBAUMOZTCV, URINE, RANDOMon 75-38-65[address]Hmcyjkqbbk (U) [Mass/Vol]90.0 mg/oROokgoa01-661 [facility] CenterComment on above:Performed By: #### [id number] ####[facility] ([facility])[address] [place] [address]Hjagrb-Bnrx 34-34-7738Jyblya-UpNormalUniversPremier Health Atrium Medical CenterLabon 94-24-2897Ayc NormalUnUniversity Hospitals Beachwood Medical CenterMAGNESIUMon 75-80-9737Lypomsaav [Mass/Vol]1.4 mg/dLLow1.9-2.7UnUniversity Hospitals Beachwood Medical CenterComment on above:Performed By: #### [id number] ####[facility] ([facility])[address] [facility] [place] [address]AWDFHQ DIFFERENTIALon 03-06-5399NAKTMOKAXAHL PRESENCE IN BLOOD BY LIGHT MICROSCOPYModerateNoalUniSt. Vincent Hospital Comment on above:Performed By: #### [id number] ####[facility] ([facility])[address], [place] [address]JDZFDNWHO (10*3/UL) IN BLOOD BY CALCULATION0.02 10*3/uLNormal0.00-0.20UnUniversity Hospitals Beachwood Medical CenterComment on above: Performed By: #### [id number] ####[facility] ([facility])[address] [address]WCLQHBCYI/100 LEUKOCYTES IN BLOOD BY AUTOMATED COUNT0.3 % Normal0.0-1.0UnUniversity Hospitals Beachwood Medical CenterComment on above:Performed By: #### [id number] ####[facility] ([facility])[address] [place] [address] EOSINOPHILS (10*3/UL) IN BLOOD BY CALCULATION0.01 10*3/uLNormal0.00-0.50 [facility] CenterComment on above:Performed By: #### [id number] ####[facility] ([facility])[address] [place], [place] [address]WQNKGZBXPPW/100 LEUKOCYTES IN BLOOD BY AUTOMATED COUNT0.2 %Normal0.0-6.0UnUniversity Hospitals Beachwood Medical CenterComment on above:Performed By: #### [id number] ####[facility] ([facility])[address] [place], [place] [address]DTWIBRWJ GRANULOCYTES (10*3/UL) IN BLOOD BY CALCULATION0.07 10*3/uLNormal0.00-0.20UnUniversity Hospitals Beachwood Medical CenterComment on above:Performed By: #### [id number] ####[facility] ([facility])[address], [place] [address]GPSRESWI GRANULOCYTES/100 LEUKOCYTES IN BLOOD BY AUTOMATED COUNT1.2 %High0.0-1.0[facility] Comment on above:Performed By: #### [id number] ####[facility] ([facility])[address], [place] [address]SXBHVOSMJUB (10*3/UL) IN BLOOD BY CALCULATION0.04 10*3/uLLow1.20-4.00UnUniversity Hospitals Beachwood Medical CenterComment on above:Performed By: #### [id number] ####[facility] ([facility])[address] [place], [place] [address]WFBTKWSKZST/100 LEUKOCYTES IN BLOOD BY AUTOMATED COUNT0.7 %Low20.0-45.0 [facility] CenterComment on above:Performed By: #### [id number] ####[facility] ([facility])[address] [place] [address]KTIZFOFDG (10*3/UL) IN BLOOD BY CALCUATION0.44 10*3/uLNormal0.10-1.00UnUniversity Hospitals Beachwood Medical CenterComment on above:Performed By: #### [id number] ####[facility] ([facility])[address] [place] [address]ZMVCXJZWT/100 LEUKOCYTES IN BLOOD BY AUTOMATED COUNT7.4 %Normal5.0-12.0UnUniversity Hospitals Beachwood Medical CenterComment on above:Performed By: #### [id number] ####[facility] ([facility])[address] [place] [address]FUWNECBQKEA (10*3/UL) IN BLOOD BY CALCULATION5.4 10*3/uL Normal1.6-7.6UnUniversity Hospitals Beachwood Medical CenterComment on above:Performed By: #### [id number] ####[facility] ([facility])[address] [place], [place] [address] NEUTROPHILS/100 LEUKOCYTES IN BLOOD BY AUTOMATED COUNT90.2 %High40.0-72.0 [facility] CenterComment on above:Performed By: #### [id number] ####[facility] ([facility])[address] [place], [place] [address]DPPVEPHFWXAMMI (PRESENCE) IN BLOOD BY LIGHT MICROSCOPYSlightNormalUniSt. Vincent HospitalComment on above:Performed By: #### [id number] ####[facility] ([facility])[address] [place], [place] [address]RIQOAYDVHFUOI IN BLOOD BY LIGHT MICROSCOPYSlightNormalUniSt. Vincent HospitalComment on above: Performed By: #### [id number] ####[facility] ([facility])[address] [place], [place] [address]Quifro Onlyon 86-03-8672Rqcgwr OnlyNormalUniversPremier Health Atrium Medical CenterPHOSPHORUSon 01-11-0281Zidzjlfas [Mass/Vol]1.7 mg/dLLow2.5-5.0 [facility] CenterComment on above:Performed By: #### [id number] ####[facility] ([facility])[address] [place], [place] [address]DDUJYWC, URINE, RANDOMon 69-03-7918Timpvvo (U) [Mass/Vol]33.7 mg/dLNormalUniversPremier Health Atrium Medical CenterComment on above:Result Comment: There are no established reference values for random urine specimens.Performed By: #### [id number] ####[facility] ([facility])[address], [place] [address]MDUNSHPZCK LEVELon 53-52-1252Lbukukgdsa (Bld) [Mass/Vol]15.8 ng/mLNormal5.0-20.0UnUniversity Hospitals Beachwood Medical CenterComment on above:Result Comment: The [employer] Tacrolimus assay is a delayed one-step immunoassay for the quantitative determination of tacrolimus in human whole blood using the chemiluminescent microparticle immunoassay (CMIA) technology with flexible assay protocols, referred to as Chemiflex.Performed By: #### [id number] ####[facility] ([facility])[address] [place], [place] [address]VBON ACIDon 58-59-5665Dacgcpoho [Mass/Vol]4.4 mg/dLNormal4.4-7.6UnUniversity Hospitals Beachwood Medical CenterComment on above:Performed By: #### [id number] ####[facility] ([facility])[address] [place], [place] [address] 15-62-838564Srmzpeo called in to report having loose stools. Sent call to NancyUnUniversity Hospitals [facility]wood Medical Center BILIRUBIN, DIRECTon 40-38-2161Rvkydnxtu [Mass/Vol]0.2 mg/dLNormal0-0.2UnUniversity Hospitals Beachwood Medical CenterComment on above:Performed By: #### [id number] ####[facility] ([facility])[address] [place] [place], [place] [address]DNI WITH AUTO DIFFERENTIALon 70-53-3714Xoiqrtfyj (Bld) [#/Vol]0.02 10*3/uLNormal0.00-0.20 [facility] CenterComment on above:Performed By: #### [id number] ####[facility] ([facility])[address] [place], [place] [address]Amuiflyse/100 WBC (Bld)0.4 %Normal0.0-1.0UnUniversity Hospitals Beachwood Medical CenterComment on above: Performed By: #### [id number] ####[facility] ([facility])[address] [place], [place] [address]Zivtjcimurq (Bld) [#/Vol]0.00 10*3/uLNormal0.00-0.50 [facility] CenterComment on above:Performed By: #### [id number] ####[facility] ([facility])[address] [place], [place] [address]Vexaebvebjs/100 WBC (Bld)0.0 %Normal0.0-6.0UnUniversity Hospitals Beachwood Medical CenterComment on above: Performed By: #### [id number] ####[facility] ([facility])[address] [place], [place] [address]Jybsgocyehn distribution width (RBC) [Ratio]17.0 %High 11.5-15.0UnUniversity Hospitals Beachwood Medical CenterComment on above:Performed By: #### [id number] ####[facility] ([facility])[address] [place] [address] ERYTHROCYTE MEAN CORPUSCULAR HEMOGLOBIN CONCENTRATION (G/DL) BY KOZWFUPXD89.3 g/cXBhzoja15.0-35.0UnUniversity Hospitals Beachwood Medical CenterComment on above:Performed By: #### [id number] ####[facility] ([facility])[address] [place], [place] [address]Izuoisgbbc (Bld) [Volume fraction]35.9 %Low39.0-50.0UnUniversity Hospitals Beachwood Medical CenterComment on above:Performed By: #### [id number] ####[facility] ([facility])[address] [place], [place] [address]Niinkjrcsk (Bld) [Mass/Vol]12.3 g/dL Low13.0-17.0UnUniversity Hospitals Beachwood Medical CenterComment on above:Performed By: #### [id number] ####[facility] ([facility])[address] [place] [address] Immature granulocytes (Bld) [#/Vol]0.03 10*3/uLNormal0.00-0.20UnUniversity [facility]als [facility] Medical CenterComment on above:Performed By: #### [id number] ####[facility] ([facility])[address] [place], [place] [address]Onmsjybk granulocytes/100 WBC (Bld)0.6 %Normal0.0-1.0UnUniversity Hospitals Beachwood Medical CenterComment on above: Performed By: #### [id number] ####[facility] ([facility])[address] [place], [place] [address]Dponzrvfaup (Bld) [#/Vol]0.05 10*3/uLLow1.20-4.00UnUniversity Hospitals [facility] Medical CenterComment on above:Performed By: #### [id number] ####[facility] ([facility])[address] [place], [place] [address]Nkwbvdabwkm/100 WBC (Bld) 1.0 %Low20.0-45.0UnUniversity Hospitals Beachwood Medical CenterComment on above:Performed By: #### [id number] ####[facility] ([facility])[address] [place], [place] [address]WWS (RBC) [Entitic mass]30.1 iiDhhwcx39.0-33.0UnUniversity Hospitals Beachwood Medical CenterComment on above:Performed By: #### [id number] ####[facility] ([facility])[address] [place] [place], [place] [address]JST (RBC) [Entitic vol]88.0 fLNormal 82.0-98.0[facility] Medical CenterComment on above:Performed By: #### [id number] ####[facility] ([facility])[address] [place] [address] Monocytes (Bld) [#/Vol]0.37 10*3/uLNormal0.10-1.00UnUniversity Hospitals [facility] Medical CenterComment on above:Performed By: #### [id number] ####[facility] ([facility])[address] [facility] [place], [place] [address]Vjmqnelao/100 WBC (Bld)7.2 %Normal 5.0-12.0UnUniversity Hospitals Beachwood Medical CenterComment on above:Performed By: #### [id number] ####[facility] ([facility])[address] [place] [address] Neutrophils (Bld) [#/Vol]4.64 10*3/uLNormal1.60-7.60UnUniversity [facility]als [facility] Medical CenterComment on above:Performed By: #### [id number] ####[facility] ([facility])[address] [facility] [place], [place] [address]Yinxrjnlkzw/100 WBC (Bld)90.8 %High 40.0-72.0UnUniversity Hospitals [facility]wood Medical CenterComment on above:Performed By: #### [id number] ####[facility] ([facility])[address] [place] [address]WMCQ (PER 100 WBCS) BY AUTOMATED COUNT0.0 %Etfxgx6IxrvcguetfUniversity Hospitals Beachwood Medical Center Comment on above:Performed By: #### [id number] ####[facility] ([facility])[address] [facility] [place]ERK[place], [place] [address]IYWSOSVEQ (10*3/UL) IN BLOOD AUTOMATED [id number] 10*3/xAQkvylq638-306PugkhgtkcgUniversity Hospitals Beachwood Medical CenterComment on above: Performed By: #### [id number] ####[facility] ([facility])[address] [place], [place] [address]AKQ (Bld) [#/Vol]4.08 10*6/uLLow4.20-5.70UnUniversity Hospitals [facility]wood Medical CenterComment on above:Performed By: #### [id number] ####[facility] ([facility])[address] [place] [address]YMG (Bld) [#/Vol]5.11 10*3/uLNormal 4.00-10.60UnUniversity Hospitals Beachwood Medical CenterComment on above:Performed By: #### [id number] ####[facility] ([facility])[address] [place] [address] COMPREHENSIVE METABOLIC PANELon 88-11-4210Ebvluzy [Mass/Vol]4.1 g/dLNormal 3.5-5.7UnUniversity Hospitals Beachwood Medical CenterComment on above:Performed By: #### [id number] ####[facility] ([facility])[address] [place] [address]DYG [Catalytic activity/Vol]150 U/XYuvx73-998JesmwfuuzaUniversity Hospitals Beachwood Medical Center Comment on above:Performed By: #### [id number] ####[facility] ([facility])[address] [place] [address]CYC [Catalytic activity/Vol]12 U/LNormal7-52 [facility] CenterComment on above:Performed By: #### [id number] ####[facility] ([facility])[address] [place], [place] [address]Iiayp gap [Moles/Vol]11 mmol/LNormal7-20UnUniversity Hospitals [facility]wood Medical CenterComment on above:Performed By: #### [id number] ####[facility] ([facility])[address] [place], [place] [address] [Catalytic activity/Vol]11 U/YMag55-57PlmloutvqwUniversity Hospitals Beachwood Medical CenterComment on above:Performed By: #### [id number] ####[facility] ([facility])[address] [place], [place] [address]Poexvdqgs [Mass/Vol]0.5 mg/dL Normal0.3-1.0UnUniversity Hospitals Beachwood Medical CenterComment on above:Performed By: #### [id number] ####[facility] ([facility])[address] [place] [address] Calcium [Mass/Vol]9.5 mg/dLNormal8.6-10.3Un[facility] Comment on above:Performed By: #### [id number] ####[facility] ([facility])[address] [place] [address]Fvqzhbmi [Moles/Vol]110 mmol/WBgxi67-196KtzrokbjncUniversity Hospitals Beachwood Medical CenterComment on above:Performed By: #### [id number] ####[facility] ([facility])[address] [place] [address]DS5 [Moles/Vol]21 mmol/L Kodzwk21-18BwnfzcnprjUniversity Hospitals Beachwood Medical CenterComment on above:Performed By: #### [id number] ####[facility] ([facility])[address] [place] [address] Creatinine [Mass/Vol]2.55 mg/dLHigh0.70-1.30UnUniversity [facility]als [facility] Comment on above:Performed By: #### [id number] ####[facility] ([facility])[address] [place] [address]WITMAACBOY FILTRATION RATE ML/MIN/1.73 SQ M.SZKSCWKDI14.6 mL/min/1.73m*2Low>60.0UnUniversity Hospitals [facility] Medical CenterComment on above:Result Comment: [facility]???s estimated glomerular filtration rate (eGFR) will no [...] potential consequences that do not disproportionately affect anyone group of individuals.Performed By: #### [id number] ####[facility] ([facility])[address] [place] [address]Lpirwgg [Mass/Vol]99 mg/mIGztvdo19-066 [facility] CenterComment on above:Performed By: #### [id number] ####[facility] ([facility])[address] [place] [address]Qhprwooos [Moles/Vol]3.8 mmol/LNormal3.5-5.1UnUniversity [facility]als [facility] Medical CenterComment on above:Performed By: #### [id number] ####[facility] ([facility])[address] [address]Dhabeoa [Mass/Vol]6.5 g/dLNormal6.0-8.3UnUniversity [facility]als [facility] Medical CenterComment on above:Performed By: #### [id number] ####[facility] ([facility])[address] [place] [address]Jgrjkr [Moles/Vol]138 mmol/LNormal 136-145UnUniversity [facility]als [facility] Medical CenterComment on above:Performed By: #### [id number] ####[facility] ([facility])[address] [place] [address]Junz nitrogen [Mass/Vol]18 mg/dLNormal7-25UnUniversity [facility]als [facility] Medical CenterComment on above:Performed By: #### [id number] ####[facility] ([facility] [facility] [place] [address]KZYJ NITROGEN/CREATININE (MASS RATIO) IN SER/PLAS7.1Normal [facility] CenterComment on above:Performed By: #### [id number] ####[facility] ([facility])[address] [place] [address]ERDZOIGPKV, URINE, RANDOMon 02-90-4038Aahsexdtpo (U) [Mass/Vol]92.0 mg/nWMprbmf73-326 [facility] CenterComment on above:Performed By: #### [id number] ####[facility] ([facility])[address] [place] [address]Xbnagx-Honh 63-47-8397Yivxdd-UpNormalUniversity Protestant HospitalLabon 54-20-7418Imp NormalUnUniversity Hospitals Beachwood Medical CenterMAGNESIUMon 74-94-9788Xngkpucmi [Mass/Vol]1.4 mg/dLLow1.9-2.7UnUniversity Hospitals Beachwood Medical CenterComment on above:Performed By: #### [id number] ####[facility] ([facility])[address] [place] [address]PWZLEWUHFUxp 77-93-9844Qzncvirbw [Mass/Vol]1.9 mg/dLLow 2.5-5.0UnUniversity Hospitals Beachwood Medical CenterComment on above:Performed By: #### [id number] ####[facility] ([facility])[address] [place] [address]KITSXVD, URINE, RANDOMon 98-88-4384Nyflkpl (U) [Mass/Vol]59.4 mg/dLNormalUniversPremier Health Atrium Medical CenterComment on above:Result Comment: There are no established reference values for random urine specimens.Performed By: #### [id number] ####[facility] ([facility])[address] [place] [address]PMQEEFNDLX LEVELon 56-95-8195Fpoubgqrft (Bld) [Mass/Vol]11.1 ng/mLNormal5.0-20.0UnUniversity Hospitals Beachwood Medical CenterComment on above:Result Comment: The [employer] Tacrolimus assay is a delayed one-step immunoassay for the quantitative determination of tacrolimus in human whole blood using the chemiluminescent microparticle immunoassay (CMIA) technology with flexible assay protocols, referred to as Chemiflex.Performed By: #### [id number] ####[facility] ([facility])[address] [place] [address]EJYG ACIDon 05-76-4589Ycvtdmrmu [Mass/Vol]4.6 mg/dLNormal4.4-7.6UnUniversity Hospitals Beachwood Medical CenterComment on above:Performed By: #### [id number] ####[facility] ([facility])[address] [place] [address]CPOIJAZBC, DIRECTon 84-66-0672Ckdqbpyly [Mass/Vol]0.1 mg/dL Normal0-0.2UnUniversity Hospitals Beachwood Medical CenterComment on above:Performed By: #### [id number] ####[facility] ([facility])[address] [place] [address]FKP WITH AUTO DIFFERENTIALon 99-57-9404Qrlphbjyu (Bld) [#/Vol]0.01 10*3/uLNormal 0.00-0.20UnUniversity Hospitals Beachwood Medical CenterComment on above:Performed By: #### [id number] ####[facility] ([facility])[address] [place] [address] Basophils/100 WBC (Bld)0.3 %Normal0.0-1.0UnUniversity Hospitals Beachwood Medical Center Comment on above:Performed By: #### [id number] ####[facility] ([facility])[address] [place], [place] [address]Gbizetlcxxw (Bld) [#/Vol]0.00 10*3/uLNormal 0.00-0.50UnUniversity Hospitals Beachwood Medical CenterComment on above:Performed By: #### [id number] ####[facility] ([facility])[address] [place] [address] Eosinophils/100 WBC (Bld)0.0 %Normal0.0-6.0UnUniversity Hospitals Beachwood Medical Center Comment on above:Performed By: #### [id number] ####[facility] ([facility])[address] [facility] [place], [place] [address]Poknmyrivsa distribution width (RBC) [Ratio]15.9 % High11.5-15.0UnUniversity Hospitals Beachwood Medical CenterComment on above:Performed By: #### [id number] ####[facility] ([facility])[address] [place] [address] ERYTHROCYTE MEAN CORPUSCULAR HEMOGLOBIN CONCENTRATION (G/DL) BY TSKEVUHUZ90.9 g/hOPkelwr63.0-35.0UnUniversity Hospitals Beachwood Medical CenterComment on above:Performed By: #### [id number] ####[facility] ([facility])[address] [facility] [place], [place] [address]Jfoaufdssh (Bld) [Volume fraction]35.1 %Low39.0-55.0UnUniversity Hospitals Beachwood Medical CenterComment on above:Performed By: #### [id number] ####[facility] ([facility])[address] [place], [place] [address]Rxjiacdzdv (Bld) [Mass/Vol]11.9 g/dL Low13.0-17.0UnUniversity Hospitals Beachwood Medical CenterComment on above:Performed By: #### [id number] ####[facility] ([facility])[address] [place] [address] Immature granulocytes (Bld) [#/Vol]0.01 10*3/uLNormal0.00-0.20UnUniversity Hospitals Beachwood Medical CenterComment on above:Performed By: #### [id number] ####[facility] ([facility])[address] [place], [place] [address]Pgqfsbgq granulocytes/100 WBC (Bld)0.3 %Normal0.0-1.0UnUniversity Hospitals Beachwood Medical CenterComment on above: Performed By: #### [id number] ####[facility] ([facility])[address] [place], [place] [address]Yjgkicjtwqz (Bld) [#/Vol]0.03 10*3/uLLow1.20-4.00UnUniversity Hospitals Beachwood Medical CenterComment on above:Performed By: #### [id number] ####[facility] ([facility])[address], [place] [address]Bdzqsclbjdh/100 WBC (Bld) 1.0 %Low20.0-45.0UnUniversity Hospitals Beachwood Medical CenterComment on above:Performed By: #### [id number] ####[facility] ([facility])[address] [place], [place] [address]CQH (RBC) [Entitic mass]30.4 vaEjleff48.0-33.0UnUniversity Hospitals Beachwood Medical CenterComment on above:Performed By: #### [id number] ####[facility] ([facility])[address] [place], [place] [address]INE (RBC) [Entitic vol]89.8 fLNormal 82.0-98.0UnUniversity Hospitals Beachwood Medical CenterComment on above:Performed By: #### [id number] ####[facility] ([facility])[address] [place] [address] Monocytes (Bld) [#/Vol]0.17 10*3/uLNormal0.10-1.00UnUniversity Hospitals Beachwood Medical CenterComment on above:Performed By: #### [id number] ####[facility] ([facility])[address] [place] [address]Cikhbxfua/100 WBC (Bld)5.6 %Normal 5.0-12.0UnUniversity Hospitals Beachwood Medical CenterComment on above:Performed By: #### [id number] ####[facility] ([facility])[address] [place] [address] Neutrophils (Bld) [#/Vol]2.84 10*3/uLNormal1.60-7.60UnUniversity Hospitals Beachwood Medical CenterComment on above:Performed By: #### [id number] ####[facility] ([facility])[address] [place], [place] [address]Xkegcrbapaq/100 WBC (Bld)92.8 %High 40.0-72.0UnUniversity Hospitals Beachwood Medical CenterComment on above:Performed By: #### [id number] ####[facility] ([facility])[address] [place], [place] [address]WYNQ (PER 100 WBCS) BY AUTOMATED COUNT0.0 %Onzsnj9KzoyjadhnpUniversity Hospitals Beachwood Medical Center Comment on above:Performed By: #### [id number] ####[facility] ([facility])[address] [place], [place] [address]MXLKVRWUI (10*3/UL) IN BLOOD AUTOMATED [id number] 10*3/iYLeukkk011-515RoajnfdvmuUniversity Hospitals Beachwood Medical CenterComment on above: Performed By: #### [id number] ####[facility] ([facility])[address] [place], [place] [address]PPX (Bld) [#/Vol]3.91 10*6/uLLow4.20-5.70UnUniversity Hospitals Beachwood Medical CenterComment on above:Performed By: #### [id number] ####[facility] ([facility])[address] [place] [address]TIW (Bld) [#/Vol]3.06 10*3/uLLow 4.00-10.60UnUniversity Hospitals Beachwood Medical CenterComment on above:Performed By: #### [id number] ####[facility] ([facility])[address] [place] [address] COMPREHENSIVE METABOLIC PANELon 76-41-8822Jzlurwj [Mass/Vol]4.1 g/dLNormal 3.5-5.7UnUniversity Hospitals Beachwood Medical CenterComment on above:Performed By: #### [id number] ####[facility] ([facility])[address] [place] [address]JUM [Catalytic activity/Vol]134 U/JRpqt44-084SnxolwnmdxUniversity Hospitals Beachwood Medical Center Comment on above:Performed By: #### [id number] ####[facility] ([facility])[address] [place] [address]MJH [Catalytic activity/Vol]11 U/LNormal7-52 [facility] CenterComment on above:Performed By: #### [id number] ####[facility] ([facility])[address], [place] [address]Eipdx gap [Moles/Vol]13 mmol/LNormal7-20UnUniversity Hospitals Beachwood Medical CenterComment on above:Performed By: #### [id number] ####[facility] ([facility])[address], [place] [address]JKR [Catalytic activity/Vol]10 U/MLnp11-98WszdihylyqUniversity Hospitals Beachwood Medical CenterComment on above:Performed By: #### [id number] ####[facility] ([facility])[address], [place] [address]Ogknorebf [Mass/Vol]0.4 mg/dL Normal0.3-1.0UnUniversity Hospitals Beachwood Medical CenterComment on above:Performed By: #### [id number] ####[facility] ([facility])[address] [place] [address] Calcium [Mass/Vol]9.1 mg/dLNormal8.6-10.3UnUniversity Hospitals [facility] Center Comment on above:Performed By: #### [id number] ####[facility] ([facility])[address] [place] [address]Znxntsij [Moles/Vol]109 mmol/SEmlg28-420XgkhmplureUniversity Hospitals Beachwood Medical CenterComment on above:Performed By: #### [id number] ####[facility] ([facility])[address] [place] [address]JO0 [Moles/Vol]20 mmol/L Mkb18-18DagvahvyffUniversity Hospitals Beachwood Medical CenterComment on above:Performed By: #### [id number] ####[facility] ([facility])[address] [place] [address]Faycofrcdw [Mass/Vol]3.04 mg/dLHigh0.70-1.30UnUniversity Hospitals Beachwood Medical CenterComment on above:Performed By: #### [id number] ####[facility] ([facility])[address], [place] [address]XKLADAAJFL FILTRATION RATE ML/MIN/1.73 SQ M.WPBGIUPOE94.8 mL/min/1.73m*2Low>60.0UnUniversity Hospitals Beachwood Medical CenterComment on above:Result Comment: The [facility]???s estimated glomerular filtration rate (eGFR) will no [...] potential consequences that do not disproportionately affect anyone group of individuals.Performed By: #### [id number] ####[facility] ([facility])[address], [place] [address]Fglgxaw [Mass/Vol]88 mg/rFLnzgnj15-942IfqnmxkzprUniversity Hospitals Beachwood Medical CenterComment on above:Performed By: #### [id number] ####[facility] ([facility])[address], [place] [address]Peolvojzp [Moles/Vol]3.5 mmol/LNormal3.5-5.1UnUniversity Hospitals Beachwood Medical CenterComment on above:Performed By: #### [id number] ####[facility] ([facility])[address] [place] [address] Protein [Mass/Vol]6.3 g/dLNormal6.0-8.3UnUniversity [facility]als [facility] Center Comment on above:Performed By: #### [id number] ####[facility] ([facility])[address], [place] [address]Szhztb [Moles/Vol]138 mmol/BHuxmij646-669WtilsojdxtUniversity Hospitals Beachwood Medical CenterComment on above:Performed By: #### [id number] ####[facility] ([facility])[address], [place] [address]Ohkh nitrogen [Mass/Vol] 27 mg/dLHigh7-25UnUniversity Hospitals Beachwood Medical CenterComment on above:Performed By: #### [id number] ####[facility] ([facility])[address] [place] [address] UREA NITROGEN/CREATININE (MASS RATIO) IN SER/PLAS8.9NormalUniversPremier Health Atrium Medical CenterComment on above:Performed By: #### [id number] ####[facility] ([facility])[address] [place] [address]Wdknw 03-52-4721WbeNqrrlrWmqsnhufch of [place] Medical CenterMAGNESIUMon 91-96-7[address]Ttzlhenuw [Mass/Vol]1.5 mg/dLLow 1.9-2.7UnUniversity Hospitals Beachwood Medical CenterComment on above:Performed By: #### [id number] ####[facility] ([facility])[address] [place] [address] PHOSPHORUSon 59-82-4352Lxzwysovh [Mass/Vol]2.4 mg/dLLow2.5-5.0UnUniversity Hospitals Beachwood Medical CenterComment on above:Performed By: #### [id number] ####[facility] ([facility])[address] [facility] [place] [place] [address]ZYWTYH ANTIGEN CLASS Ion 05-12-4285GD SCREEN COMMENTSNo Class I donor specific antibody identifiedNoJoint Township District Memorial HospitalComment on above:Performed By: #### [id number] ####[facility] TISSUE TYPING (HISTOTRAC)[address] [place] [address] USACLASS I TESTED [id number] of [place] Medical CenterComment on above:Performed By: #### [id number] ####[facility] TISSUE TYPING (HISTOTRAC)[address] [place] [place] [address] USASINGLE ANTIGEN CLASS 1 TEST METHODClass I Single AntigenNoRegency Hospital Cleveland EastCombeaumont hospital on above: Performed By: #### [id number] ####[facility] TISSUE TYPING (HISTOTRAC)[address] [place] [address] USASINGLE ANTIGEN CLASS IIon [id number] SCREEN COMMENTSNo Class II donor specific antibody identifiedNoalUAvita Health System Bucyrus HospitalComment on above:Performed By: #### [id number] ####[facility] TISSUE TYPING (HISTOTRAC)[address] [place] [address] USACLASS II TESTED DATE [id number] [place], [place] [address]Combeaumont hospital on above: Performed By: #### [id number] ####[facility] TISSUE TYPING (HISTOTRAC)[address] [place] [address] USASIGNED BYSigned by Terrance Figueroa CHT([facility]) MT(ASCP), Upper [facility]utter Transplant ImmunologyNoRegency Hospital Cleveland EastCombeaumont hospital on above:Performed By: #### [id number] ####[facility] TISSUE TYPING (HISTOTRAC)[address] [place] [address] USAResult Comment: Class I Antigen Microbeads Performed By: #### [id number] ####[facility] TISSUE TYPING (HISTOTRAC)[address] [facility] [place] [address] USASINGLE ANTIGEN CLASS 2 TEST METHODClass II Single Antigen [facility] HospitalComment on above:Result Comment: Class II Antigen MicrobeadsPerformed By: #### [id number] ####[facility] TISSUE TYPING (HISTOTRAC)[address] [place] [address] USATACROLIMUS LEVELon 06-05-2024 Tacrolimus (Bld) [Mass/Vol]10.1 ng/mLNormal5.0-20.0UnUniversity Hospitals Beachwood Medical CenterComment on above:Result Comment: The [employer] Tacrolimus assay is a delayed one-step immunoassay for the quantitative determination of tacrolimus in human whole blood using the chemiluminescent microparticle immunoassay (CMIA) technology with flexible assay protocols, referred to as Chemiflex.Performed By: #### [id number] ####[facility] ([facility])[address] [place] [address] URIC ACIDon 12-35-1028Qvhdvdfvl [Mass/Vol]4.7 mg/dLNormal4.4-7.6UnUniversity Hospitals Beachwood Medical CenterComment on above:Performed By: #### [id number] ####[facility] (BE[facility]ER)[address] [place] [address]nu 23-07-878501Ieclge [facility] Medical CenterBILIRUBIN, DIRECTon 02-04-4690Ocmhpjbzy [Mass/Vol]0.2 mg/dLNormal0-0.2UnUniversity Hospitals Beachwood Medical CenterComment on above:Performed By: #### [id number] ####[facility] ([facility])[address] [place] [address]ELP WITH AUTO DIFFERENTIALon 78-67-6658Onxuclayi (Bld) [#/Vol]0.01 10*3/uLNormal0.00-0.20UnUniversity Hospitals Beach[facility] Medical CenterComment on above:Performed By: #### [id number] ####[facility] ([facility])[address] [place] [address]Gflulhxsn/100 WBC (Bld)0.4 %Normal0.0-1.0UnUniversity Hospitals Beachwood Medical CenterComment on above:Performed By: #### [id number] ####[facility] ([facility])[address] [place], [place] [address]Puvuukriink (Bld) [#/Vol]0.00 10*3/uL Normal0.00-0.50UnUniversity Hospitals Beachwood Medical CenterComment on above:Performed By: #### [id number] ####[facility] ([facility])[address] [place] [address] Eosinophils/100 WBC (Bld)0.0 %Normal0.0-6.0UnUniversity [facility]als [facility] Center Comment on above:Performed By: #### [id number] ####[facility] ([facility])[address] [facility] [place], [place] [address]Vkoxpjvnedi distribution width (RBC) [Ratio]15.8 % High11.5-15.0UnUniversity Hospitals Beachwood Medical CenterComment on above:Performed By: #### [id number] ####[facility] ([facility])[address] [place] [address] ERYTHROCYTE MEAN CORPUSCULAR HEMOGLOBIN CONCENTRATION (G/DL) BY QXKAVMCEE62.0 g/gBGhxpcu54.0-35.0UnUniversity Hospitals Beachwood Medical CenterComment on above:Performed By: #### [id number] ####[facility] ([facility])[address] [place], [place] [address]Hlerykquis (Bld) [Volume fraction]38.5 %Low39.0-55.0UnUniversity Hospitals Beachwood Medical CenterComment on above:Performed By: #### [id number] ####[facility] ([facility])[address] [facility] [place], [place] [address]Yyglgtysga (Bld) [Mass/Vol]13.1 g/dL Fpxalb19.0-17.0UnUniversity Hospitals Beachwood Medical CenterComment on above:Performed By: #### [id number] ####[facility] ([facility])[address] [place] [address] Immature granulocytes (Bld) [#/Vol]0.02 10*3/uLNormal0.00-0.20UnUniversity Hospitals Beach[facility] Medical CenterComment on above:Performed By: #### [id number] ####[facility] ([facility])[address] [place], [place] [address]Kmforxoz granulocytes/100 WBC (Bld)0.7 %Normal0.0-1.0UnUniversity Hospitals Beachwood Medical CenterComment on above: Performed By: #### [id number] ####[facility] ([facility])[address] [place], [place] [address]Tpdvtutdmbo (Bld) [#/Vol]0.03 10*3/uLLow1.20-4.00UnUniversity Hospitals [facility] Medical CenterComment on above:Performed By: #### [id number] ####[facility] ([facility])[address] [place], [place] [address]Edbaezfraij/100 WBC (Bld) 1.1 %Low20.0-45.0UnUniversity Hospitals Beachwood Medical CenterComment on above:Performed By: #### [id number] ####[facility] ([facility])[address] [place], [place] [address]KDP (RBC) [Entitic mass]30.5 brBlnmkd15.0-33.0UnUniversity Hospitals [facility] Medical CenterComment on above:Performed By: #### [id number] ####[facility] ([facility])[address] [place], [place] [address]IKM (RBC) [Entitic vol]89.5 fLNormal 82.0-98.0UnUniversity Hospitals Beachwood Medical CenterComment on above:Performed By: #### [id number] ####[facility] ([facility])[address] [place] [address] Monocytes (Bld) [#/Vol]0.14 10*3/uLNormal0.10-1.00UnUniversity Hospitals Beachwood Medical CenterComment on above:Performed By: #### [id number] ####[facility] ([facility])[address] [place], [place] [address]Ornvpalry/100 WBC (Bld)5.0 %Normal 5.0-12.0UnUniversity Hospitals Beachwood Medical CenterComment on above:Performed By: #### [id number] ####[facility] ([facility])[address] [place] [address] Neutrophils (Bld) [#/Vol]2.58 10*3/uLNormal1.60-7.60UnUniversity Hospitals Beachwood Medical CenterComment on above:Performed By: #### [id number] ####[facility] ([facility])[address] [place] [place] [address]Xqromycvxxw/100 WBC (Bld)92.8 %High 40.0-72.0UnUniversity Hospitals Beachwood Medical CenterComment on above:Performed By: #### [id number] ####[facility] ([facility])[address] [place] [address]ZHWD (PER 100 WBCS) BY AUTOMATED COUNT0.0 %Stexsh4CekxvmqydiUniversity Hospitals Beachwood Medical Center Comment on above:Performed By: #### [id number] ####[facility] ([facility])[address] [place] [place] [address]ARGRUAEDV (10*3/UL) IN BLOOD AUTOMATED [id number] 10*3/hRQccjwd060-849DpiuqxkbmsUniversity Hospitals Beachwood Medical CenterComment on above: Performed By: #### [id number] ####[facility] ([facility])[address] [place] [address]JFO (Bld) [#/Vol]4.30 10*6/uLNormal4.20-5.70UnUniversity Hospitals Beachwood Medical CenterComment on above:Performed By: #### [id number] ####[facility] ([facility])[address] [place] [place] [address]ETR (Bld) [#/Vol]2.78 10*3/uLLow4.00-10.60UnUniversity Hospitals Beachwood Medical CenterComment on above: Performed By: #### [id number] ####[facility] ([facility])[address] [place], [place] [address]ILURDRHOSLUBU METABOLIC PANELon 63-49-6963Flcluul [Mass/Vol] 4.3 g/dLNormal3.5-5.7UnUniversity Hospitals Beachwood Medical CenterComment on above: Performed By: #### [id number] ####[facility] ([facility])[address] [place] [place] [address]JRP [Catalytic activity/Vol]122 U/YObqi28-036LfcuotoagdUniversity Hospitals Beachwood Medical CenterComment on above:Performed By: #### [id number] ####[facility] (BEBANNER)[address] [place] [address]TNQ [Catalytic activity/Vol]13 U/L Normal7-52UnUniversity Hospitals Beachwood Medical CenterComment on above:Performed By: #### [id number] ####[facility] (AKER)[address] [place], [place] [address]Mqymr gap [Moles/Vol]15 mmol/LNormal7-20UnUniversity Hospitals Beachwood Medical CenterComment on above:Performed By: #### [id number] ####[facility] ([facility])[address] [place], [place] [address]BPU [Catalytic activity/Vol]11 U/YEjx82-96MletbeptlsUniversity Hospitals Beachwood Medical CenterComment on above:Performed By: #### [id number] ####[facility] ([facility])[address] [place], [place] [address]Bugeajmxm [Mass/Vol]0.5 mg/dL Normal0.3-1.0UnUniversity Hospitals Beachwood Medical CenterComment on above:Performed By: #### [id number] ####[facility] ([facility])[address] [place] [address] Calcium [Mass/Vol]9.5 mg/dLNormal8.6-10.3UnUniversity Hospitals Beachwood Medical Center Comment on above:Performed By: #### [id number] ####[facility] ([facility])[address] [place], [place] [address]Lhvbqgqj [Moles/Vol]109 mmol/TVhhn55-229YpmyzkmibyUniversity Hospitals Beachwood Medical CenterComment on above:Performed By: #### [id number] ####[facility] ([facility])[address] [place], [place] [address]UI4 [Moles/Vol]18 mmol/L Pfj35-67AgfasntrorUniversity Hospitals Beachwood Medical CenterComment on above:Performed By: #### [id number] ####[facility] ([facility])[address] [place], [place] [address]Jvendjjycn [Mass/Vol]3.33 mg/dLHigh0.70-1.30UnUniversity Hospitals Beachwood Medical CenterComment on above:Performed By: #### [id number] ####[facility] ([facility])[address] [place], [place] [address]KGNKYCFNIP FILTRATION RATE ML/MIN/1.73 SQ M.JOGLKWATY92.2 mL/min/1.73m*2Low>60.0UnUniversity Hospitals Beachwood Medical CenterComment on above:Result Comment: [facility]???s estimated glomerular filtration rate (eGFR) will no [...] potential consequences that do not disproportionately affect anyone group of individuals.Performed By: #### [id number] ####[facility] [facility] ([facility])[address] [place], [place] [address]Wdiultv [Mass/Vol]84 mg/pWXjmhtw28-454AgdmvebleiUniversity Hospitals Beachwood Medical CenterComment on above:Performed By: #### [id number] ####[facility] ([facility])[address] [place], [place] [address]Gqijurxgi [Moles/Vol]3.2 mmol/LLow3.5-5.1UnUniversity Hospitals Beachwood Medical CenterComment on above:Performed By: #### [id number] ####[facility] ([facility])[address] [place] [address] Protein [Mass/Vol]6.8 g/dLNormal6.0-8.3UnUniversity Hospitals Beachwood Medical Center Comment on above:Performed By: #### [id number] ####[facility] ([facility])[address]AMGE[facility] MEDICAL [place]ERK[place], [place] [address]Agcdgp [Moles/Vol]139 mmol/CDthclt874-546RqzvcflzcoUniversity Hospitals Beachwood Medical CenterComment on above:Performed By: #### [id number] ####[facility] ([facility])[address] [place], [place] [address]Uiay nitrogen [Mass/Vol] 31 mg/dLHigh7-25UnUniversity Hospitals Beachwood Medical CenterComment on above:Performed By: #### [id number] ####[facility] ([facility])[address] [place] [place] [address] UREA NITROGEN/CREATININE (MASS RATIO) IN SER/PLAS9.3NormalUniversPremier Health Atrium Medical CenterComment on above:Performed By: #### [id number] ####[facility] ([facility])[address] [facility]FA[facility] [place], [place] [address]THKLMTZPAJ, URINE, RANDOMon 06-03-2024 Creatinine (U) [Mass/Vol]88.0 mg/jHEraebi57-783JkskxtdcpcUniversity Hospitals Beachwood Medical CenterComment on above:Performed By: #### [id number] ####[facility] ([facility])[address] [facility] [place], [place] [address]CPZWKY CULTUREon 04-77-0955Rgmharap identified Cx Nom (Unsp spec)AbnormalUnUniversity Hospitals Beachwood Medical CenterComment on above:Order Comment: Multiple Gram Positive Organisms consistent with Uro- Genital FloraResult Comment: ENTEROCOCCUS FAECALIS>15 CFU Enterococcus faecalisCOAGULASE NEGATIVE STAPHYLOCOCCUS>15 CFU Coagulase Negative Staphylococcus speciesPerformed By: #### DEVICE CULTURE ####[facility] ([facility])[address] [facility] [place], [place] [address]Sotampvpaqnuyob 06-03-2024 DocumentationNormalUniversity of [facility] Health System McallenFollow-Upon 06-03-2024 Follow-UpNormalUniversPremier Health Atrium Medical CenterHCV QUANTITATIVE TMAon 86-72-6699UAG QUANTITATIVE LOG IU/MLNormalUnUniversity Hospitals Beachwood Medical Center Comment on above:Order Comment: The Aptima HCV Quant Dx assay is a real-time hydraulic auto jack mechanic-mediated amplification (TMA) test which has a dynamic range of 10- 100,000,000 IU/mL (1.0-8.0 log IU/mL). The Aptima HCV QuantDx assay is used for both detection and quantitation of hepatitis C virus (HCV) RNA in human serum a nd plasma from HCV-infected individuals.The results from the Aptima HCV Quant Dx assay must be interpreted within the context of all relevant clinical and laboratory findings. The Aptima HCV Quant Dxassay is not approved for use as a screening test for the presence of HCV RNA in blood or blood products.Result Comment: Not DetectedPerformed By: #### [id number] ####[facility] ([facility])[address] [place] [address]HBT QUANTITATIVE TMANormalUniSt. Vincent HospitalComment on above:Order Comment: The Aptima HCV Quant Dx assay is a real-time hydraulic auto jack mechanic-mediated amplification (TMA) test which has a dynamic range of 10-100,000,000 IU/mL (1.0-8.0 log IU/mL). The Aptima HCV Quant Dx assay is used for both detection and quantitation of hepatitis C virus (HCV) RNA in human serum and plasma from HCV-infected individuals.The results from the Aptima HCV Quant Dx assay must be interpreted within the context of all relevant clinical and laboratory findings. The Aptima HCV Quant Dxassay is not approved for use as a screening test for the presence of HCV RNA in blood or blood products.Result Comment: Not DetectedPerformed By: #### [id number] ####[facility] ([facility])[address] [place], [place] [address]SVB TMA INTERPNot detectedNormalNot DetectedUniversity Hospitals Parma Medical CenterComment on above: Order Comment: The Aptima HCV Quant Dx assay is a real-time hydraulic auto jack mechanic- mediated amplification (TMA) test which has a dynamic range of 10-100,000,000 IU/mL (1.0-8.0 log IU/mL). The Aptima HCV QuantDx assay is used for both detection and quantitation of hepatitis C virus (HCV) RNA in human serum and plasma from HCV-infected individuals.The results from the Aptima HCV Quant Dx assay must be interpreted within the context of all relevant clinical and laboratory findings. The Aptima HCV Quant Dxassay is not approved for use as a screening test for the presence of HCV RNA in blood or blood products.Performed By: #### [id number] ####[facility] ([facility])[address] [place], [place] [address]Dxzrj 38-44-0244ApeNozwtkTzrisnteoc of Toledo Medical CenterMAGNESIUMon 87-30-1447Kqpvpfwjj [Mass/Vol]1.5 mg/dLLow1.9-2.7UnUniversity Hospitals Beachwood Medical CenterComment on above:Performed By: #### [id number] ####[facility] ([facility])[address] [place], [place] [address]Xntcdc Onlyon 43-00-6438Mabcbu Only NormalUnUniversity Hospitals Beachwood Medical CenterPHOSPHORUSon 46-28-0767Lheqzxbio [Mass/Vol]3.3 mg/dLNormal2.5-5.0UnUniversity Hospitals Beachwood Medical CenterComment on above:Performed By: #### [id number] ####[facility] ([facility])[address] [place], [place] [address]KEGHNCS, URINE, RANDOMon 71-90-9907Kexjrnp (U) [Mass/Vol]54.3 mg/dLNormalUniversPremier Health Atrium Medical CenterComment on above:Result Comment: There are no established reference values for random urine specimens.Performed By: #### [id number] ####[facility] ([facility])[address] [place] [address] TACROLIMUS LEVELon 40-86-0151Noaktlbtrk (Bld) [Mass/Vol]9.9 ng/mLNormal5.0-20.0 University Hospitals Parma Medical CenterComment on above:Result Comment: The [employer] Tacrolimus assay is a delayed one-step immunoassay for the jose a titative determination of tacrolimus in human whole blood using the chemiluminescent microparticle immunoassay (CMIA) technology with flexible assay protocols, referred to as Chemiflex.Performed By: #### [id number] ####[facility] ([facility])[address] [place], [place] [address]SWWP ACIDon 08-51-5047Mgibzpsiz [Mass/Vol]5.0 mg/dLNormal4.4-7.6UnUniversity Hospitals Beachwood Medical CenterComment on above:Performed By: #### [id number] ####[facility] ([facility])[address] [place] [id number] [id number] with patient in clinic. He reports that delivery is expected today 05/28. Informed patient to call pharmacy for any questions and concerns. Pharmacy signing off at this time.NormalUnUniversity Hospitals Beachwood Medical CenterBILIRUBIN, DIRECTon 26-22-5324Jhcyoumgx [Mass/Vol]0.1 mg/dLNormal0-0.2UnUniversity Hospitals Beachwood Medical CenterComment on above:Performed By: #### [id number] ####[facility] ([facility])[address] [place] [address]QZT WITH AUTO DIFFERENTIALon 27-99-3933Cnaoahlnrii distribution width (RBC) [Ratio]15.3 %High11.5-15.0 University Hospitals Parma Medical CenterComment on above:Performed By: #### [id number] ####[facility] ([facility])[address] [place] [address]AAQRGYLLKZX MEAN CORPUSCULAR HEMOGLOBIN CONCENTRATION (G/DL) BY RNAGHNHQK37.4 g/dLNormal 32.0-35.0UnUniversity Hospitals Beachwood Medical CenterComment on above:Performed By: #### [id number] ####[facility] ([facility])[address] [place] [address] Hematocrit (Bld) [Volume fraction]36.2 %Low39.0-55.0UnUniversity Hospitals Beachwood Medical CenterComment on above:Performed By: #### [id number] ####[facility] ([facility])[address] [place] [address]Nlymncelce (Bld) [Mass/Vol]12.1 g/dL Low13.0-17.0UnUniversity Hospitals Beachwood Medical CenterComment on above:Performed By: #### [id number] ####[facility] ([facility])[address] [place] [address]XEL (RBC) [Entitic mass]30.5 mmWodxdt68.0-33.0UnUniversity Hospitals Beachwood Medical Center Comment on above:Performed By: #### [id number] ####[facility] ([facility])[address] [address]ZHS (RBC) [Entitic vol]91.2 jKYfrbva85.0-98.0 [facility] Hospitals Parma Medical CenterComment on above:Performed By: #### [id number] ####[facility] ([facility])[address] [address]NRBT (PER 100 WBCS) BY AUTOMATED COUNT0.0 %Zjdkcg7NjepnjypgoUniversity Hospitals Beachwood Medical CenterComment on above:Performed By: #### [id number] ####[facility] ([facility])[address] [address]SVEMLEWUX (10*3/UL) IN BLOOD AUTOMATED [id number] 10*3/uLLow 150-400UnUniversity Hospitals Beachwood Medical CenterComment on above:Performed By: #### [id number] ####[facility] ([facility])[address] [address]UIF (Bld) [#/Vol]3.97 10*6/uLLow4.20-5.70UnUniversity Hospitals Beachwood Medical CenterComment on above:Performed By: #### [id number] ####[facility] ([facility])[address] [address]RQQ (Bld) [#/Vol]2.95 10*3/uLLow4.00-10.60UnUniversity Hospitals Beachwood Medical CenterComment on above:Performed By: #### [id number] ####[facility] ([facility])[address] [address]RPSMIZMVIMVIA METABOLIC PANELon 98-86-9834Teiybqt [Mass/Vol]4.2 g/dLNormal3.5-5.7UnUniversity Hospitals Beachwood Medical CenterComment on above:Performed By: #### [id number] ####[facility] ([facility])[address] [address]JHH [Catalytic activity/Vol]103 U/L Krgxbz95-495PokejvuuxcUniversity Hospitals Beachwood Medical CenterComment on above:Performed By: #### [id number] ####[facility] ([facility])[address] [place], [place] [address]QXC [Catalytic activity/Vol]13 U/LNormal7-52UnUniversity Hospitals Beachwood Medical Center Comment on above:Performed By: #### [id number] ####[facility] ([facility])[address] [place], [place] [address]Cnopj gap [Moles/Vol]16 mmol/LNormal7-20UnUniversity Hospitals Beachwood Medical CenterComment on above:Performed By: #### [id number] ####[facility] ([facility])[address] [place], [place] [address]KYP [Catalytic activity/Vol]12 U/LMgv16-28DxqyvhkcnkUniversity Hospitals Beachwood Medical CenterComment on above: Performed By: #### [id number] ####[facility] ([facility])[address] [place], [place] [address]Paktlpwks [Mass/Vol]0.5 mg/dLNormal0.3-1.0UnUniversity Hospitals Beachwood Medical CenterComment on above:Performed By: #### [id number] ####[facility] ([facility])[address] [place], [place] [address]Cfyintx [Mass/Vol]9.3 mg/dLNormal 8.6-10.3UnUniversity Hospitals Beachwood Medical CenterComment on above:Performed By: #### [id number] ####[facility] ([facility])[address] [place], [place] [address]Qapdqzia [Moles/Vol]110 mmol/IYoww39-999KcsbthulcgUniversity Hospitals Beachwood Medical CenterComment on above:Performed By: #### [id number] ####[facility] ([facility])[address] [place], [place] [address]JK6 [Moles/Vol]18 mmol/YAgu80-75PimuzndrepUniversity Hospitals Beachwood Medical CenterComment on above:Performed By: #### [id number] ####[facility] ([facility])[address] [place], [place] [address]Ddkezmwotv [Mass/Vol]6.09 mg/dLHigh 0.70-1.30UnUniversity Hospitals Beachwood Medical CenterComment on above:Performed By: #### [id number] ####[facility] ([facility])[address] [address]FILIPCAMOH FILTRATION RATE ML/MIN/1.73 SQ M.EDMJCTVIL44.8 mL/min/1.73m*2Low>60.0UnUniversity Hospitals Beachwood Medical CenterComment on above:Result Comment: The [facility]???s estimated glomerular filtration rate (eGFR) will no [...] potential consequences that do not disproportionately affect anyone group of individuals. Performed By: #### [id number] ####[facility] ([facility])[address] [place] [address]Xqnzzcc [Mass/Vol]73 mg/qXIbznzf08-203AvztgulvclUniversity Hospitals Beachwood Medical CenterComment on above:Performed By: #### [id number] ####[facility] ([facility])[address] [place] [place] [address]Ibpgdtitv [Moles/Vol]3.8 mmol/LNormal 3.5-5.1UnUniversity Hospitals Beachwood Medical CenterComment on above:Performed By: #### [id number] ####[facility] ([facility])[address] [place] [address]Xmnlrqz [Mass/Vol]6.7 g/dLNormal6.0-8.3UnUniversity Hospitals Beachwood Medical CenterComment on above:Performed By: #### [id number] ####[facility] ([facility])[address] [place] [address]Sjrydj [Moles/Vol]140 mmol/XGwhgxn994-716HlxwajtlzyUniversity Hospitals Beachwood Medical CenterComment on above:Performed By: #### [id number] ####[facility] ([facility])[address] [place] [address]Erkh nitrogen [Mass/Vol]66 mg/dLHigh 7-25UnUniversity Hospitals Beachwood Medical CenterComment on above:Performed By: #### [id number] ####[facility] ([facility])[address] [place] [address]XFWZ NITROGEN/CREATININE (MASS RATIO) IN SER/PLAS10.8NormalUniversPremier Health Atrium Medical CenterComment on above:Performed By: #### [id number] ####[facility] ([facility])[address] [place] [place] [address]TZEASGIKXL, URINE, RANDOMon 05-28-2024 Creatinine (U) [Mass/Vol]67.0 mg/aNKushyz54-104MpeivnliceUniversity Hospitals Beachwood Medical CenterComment on above:Performed By: #### [id number] ####[facility] ([facility])[address] [place] [address]Pzrirx-Vkum 39-52-3478Yyhvmq-UpNormal [facility] Medical CenterLabon 88-72-4262WtbUoomuhItpajvgvtf of [place] Medical CenterMAGNESIUMon 88-76-1036Yfnlguxaw [Mass/Vol]1.7 mg/dLLow1.9-2.7 [facility] CenterComment on above:Performed By: #### [id number] ####[facility] ([facility])[address] [place] [address]ZSLCED DIFFERENTIALon 43-03-9872JAYXMWSRZ (10*3/UL) IN BLOOD BY CALCULATION0.00 10*3/uL Normal0.00-0.20UnUniversity Hospitals Beachwood Medical CenterComment on above:Performed By: #### [id number] ####[facility] ([facility])[address] [place] [address] BASOPHILS/100 LEUKOCYTES IN BLOOD BY AUTOMATED COUNT0.0 %Normal0.0-1.0UnUniversity Hospitals Beachwood Medical CenterComment on above:Performed By: #### [id number] ####[facility] ([facility])[address] [place], [place] [address]ACMTCVKQZZU (10*3/UL) IN BLOOD BY CALCULATION0.00 10*3/uLNormal0.00-0.50UnUniversity Hospitals Beachwood Medical CenterComment on above:Performed By: #### [id number] ####[facility] ([facility])[address] [place], [place] [address]BJFVFUAHGWB/100 LEUKOCYTES IN BLOOD BY AUTOMATED COUNT0.0 %Normal0.0-6.0UnUniversity Hospitals Beachwood Medical CenterComment on above:Performed By: #### [id number] ####[facility] ([facility])[address] [place], [place] [address]MYQYRZTB GRANULOCYTES (10*3/UL) IN BLOOD BY CALCULATION0.01 10*3/uLNormal0.00-0.20UnUniversity Hospitals Beachwood Medical CenterComment on above: Performed By: #### [id number] ####[facility] ([facility])[address] [place], [place] [address]XKAWNHPI GRANULOCYTES/100 LEUKOCYTES IN BLOOD BY AUTOMATED COUNT0.3 %Normal0.0-1.0UnUniversity Hospitals Beachwood Medical CenterComment on above: Performed By: #### [id number] ####[facility] ([facility])[address] [place], [place] [address]AFUGTXZICIY (10*3/UL) IN BLOOD BY CALCULATION0.00 10*3/uLLow 1.20-4.00UnUniversity Hospitals Beachwood Medical CenterComment on above:Performed By: #### [id number] ####[facility] ([facility])[address] [place] [address] LYMPHOCYTES/100 LEUKOCYTES IN BLOOD BY AUTOMATED COUNT0.0 %Low20.0-45.0 [facility] Medical CenterComment on above:Performed By: #### [id number] ####[facility] ([facility])[address] [place], [place] [address]ULTMQQOUI (10*3/UL) IN BLOOD BY CALCUATION0.00 10*3/uLLow0.10-1.00UnUniversity Hospitals Beachwood Medical CenterComment on above:Performed By: #### [id number] ####[facility] ([facility])[address] [place] [address]WUATGOFJZ/100 LEUKOCYTES IN BLOOD BY AUTOMATED COUNT0.0 %Low5.0-12.0UnUniversity Hospitals Beachwood Medical CenterComment on above:Performed By: #### [id number] ####[facility] ([facility])[address]GE[facility] [place] [address]XWUIABRVCTO (10*3/UL) IN BLOOD BY CALCULATION3.0 10*3/uL Normal1.6-7.6UnUniversity Hospitals Beachwood Medical CenterComment on above:Performed By: #### [id number] ####[facility] ([facility])[address] [place] [address] NEUTROPHILS/100 LEUKOCYTES IN BLOOD BY AUTOMATED MOBIV593.0 %High40.0-72.0 [facility] Medical CenterComment on above:Performed By: #### [id number] ####[facility] ([facility])[address] [place], [place] [address]MTTFTZ CELLS/100 LEUKOCYTES IN BLOOD0 %Rokrcc2GcennzvdkgUniversity Hospitals Beachwood Medical CenterComment on above:Performed By: #### [id number] ####[facility] ([facility])[address] [place] [address]AMYKXQLUD GIANT PRESENCE IN BLOOD BY LIGHT MICROSCOPYPresent NormalUnUniversity Hospitals Beachwood Medical CenterComment on above:Performed By: #### [id number] ####[facility] ([facility])[address]AGEISING[facility] COMM[facility]ITY MEDICAL [place]ERK[place], [place] [address]ZPIMGYU LYMPHOCYTES (10*3/UL) IN BLOOD BY CALCULATION0.00 10*3/uLNormal0.00UnUniversity Hospitals Beachwood Medical CenterComment on above:Performed By: #### [id number] ####[facility] ([facility])[address] [facility] [place] [address]OKIQUTC LYMPHOCYTES/100 LEUKOCYTES IN BLOOD CELLAVISION0.0 %Normal0.0-0.0UnUniversity Hospitals Beachwood Medical CenterComment on above:Performed By: #### [id number] ####[facility] ([facility])[address] [place], [place] [address]VOYPDBDMEVzt 82-18-9774Mevlapgdh [Mass/Vol]5.5 mg/dLHigh2.5-5.0UnUniversity Hospitals Beachwood Medical CenterComment on above:Performed By: #### [id number] ####[facility] ([facility])[address] [place], [place] [address]CJLCNAN, URINE, RANDOMon 25-46-6578Wgfihow (U) [Mass/Vol]57.2 mg/dLNormalUniversPremier Health Atrium Medical CenterComment on above:Result Comment: There are no established reference values for random urine specimens.Performed By: #### [id number] ####[facility] ([facility])[address] [place] [address] TACROLIMUS LEVELon 58-55-0868Vozojyaypy (Bld) [Mass/Vol]4.7 ng/mLLow5.0-20.0 [facility] Medical CenterComment on above:Result Comment: The [employer] Tacrolimus assay is a delayed one-step immunoassay for the jose a titative determination of tacrolimus in human whole blood using the chemiluminescent microparticle immunoassay (CMIA) technology with flexible assay protocols, referred to as Chemiflex.Performed By: #### [id number] ####[facility] ([facility])[address] [place], [place] [address]KNHP ACIDon 78-28-4945Nswavgyaf [Mass/Vol]5.6 mg/dLNormal4.4-7.6UnUniversity Hospitals Beachwood Medical CenterComment on above:Performed By: #### [id number] ####[facility] ([facility])[address], [place] [address]68ok 29-51-985611Czzhvs up with patient on Sunday to see if he got delivery - transplant APPE studentNormalUniversuc health of [facility] Mcallen36Patient got in contact with [facility] and was able to set up delivery -transplant APPE studentNormalUniversPremier Health Atrium Medical CenterBILIRUBIN, DIRECTon 02-51-2406Iftggszba [Mass/Vol]0.1 mg/dLNormal0-0.2UnUniversity Hospitals Beachwood Medical CenterComment on above:Performed By: #### [id number] ####[facility] ([facility])[address] [place] [place] [address]RYP WITH AUTO DIFFERENTIALon 60-17-3200Chcjjxloy (Bld) [#/Vol]0.01 10*3/uLNormal0.00-0.20UnUniversity Hospitals Beachwood Medical CenterComment on above:Performed By: #### [id number] ####[facility] ([facility])[address] [place] [address]Oqldslcby/100 WBC (Bld)0.2 %Normal 0.0-1.0UnUniversity Hospitals Beachwood Medical CenterComment on above:Performed By: #### [id number] ####[facility] ([facility])[address] [place] [address] Eosinophils (Bld) [#/Vol]0.01 10*3/uLNormal0.00-0.50UnUniversity Hospitals Beachwood Medical CenterComment on above:Performed By: #### [id number] ####[facility] ([facility])[address] [place], [place] [address]Pgvvrszjwev/100 WBC (Bld)0.2 %Normal 0.0-6.0UnUniversity Hospitals Beachwood Medical CenterComment on above:Performed By: #### [id number] ####[facility] ([facility])[address] [place] [address] Erythrocyte distribution width (RBC) [Ratio]15.4 %High11.5-15.0UnUniversity Hospitals Beachwood Medical CenterComment on above:Performed By: #### [id number] ####[facility] ([facility])[address] [facility] [place], [place] [address]SLUVCJZKLEA MEAN CORPUSCULAR HEMOGLOBIN CONCENTRATION (G/DL) BY EFUBNRQKB90.9 g/mRRievck07.0-35.0 [facility] Medical CenterComment on above:Performed By: #### [id number] ####[facility] ([facility])[address] [facility] [place], [place] [address]Hiumcbqzwr (Bld) [Volume fraction]37.5 %Low39.0-55.0UnUniversity Hospitals Beachwood Medical CenterComment on above:Performed By: #### [id number] ####[facility] ([facility])[address] [place] [address]Akkcijqkvr (Bld) [Mass/Vol]12.7 g/dLLow13.0-17.0UnUniversity Hospitals Beachwood Medical CenterComment on above:Performed By: #### [id number] ####[facility] ([facility])[address] [place], [place] [address]Kxforlzz granulocytes (Bld) [#/Vol]0.02 10*3/uLNormal0.00-0.20Un[facility]als [facility] Comment on above:Performed By: #### [id number] ####[facility] ([facility])[address] [place], [place] [address]Jkbanvdj granulocytes/100 WBC (Bld)0.5 %Normal 0.0-1.0UnUniversity Hospitals Beachwood Medical CenterComment on above:Performed By: #### [id number] ####[facility] ([facility]AKER)[address] [place] [address] Lymphocytes (Bld) [#/Vol]0.08 10*3/uLLow1.20-4.00Un[facility] CenterComment on above:Performed By: #### [id number] ####[facility] (BEAKER)[address] [place], [place] [address]Uzymqnyfpne/100 WBC (Bld)2.0 %Low 20.0-45.0Un[facility] CenterComment on above:Performed By: #### [id number] ####[facility] (BEAKER)[address] [place] [address]DFL (RBC) [Entitic mass]30.8 leGjawsg13.0-33.0Un[facility] Comment on above:Performed By: #### [id number] ####[facility] [facility] [place] [address]SNM (RBC) [Entitic vol]91.0 bKLjvaiq70.0-98.0 [facility] CenterComment on above:Performed By: #### [id number] ####[facility] ([facility])[address] [place] [address]Lxdavudvo (Bld) [#/Vol]0.05 10*3/uLLow0.10-1.00UnUniversity Hospitals Beachwood Medical CenterComment on above:Performed By: #### [id number] ####[facility] ([facility])[address] [place] [address]Tjpyxxrhn/100 WBC (Bld)1.2 %Low5.0-12.0UnUniversity Hospitals Beachwood Medical CenterComment on above:Performed By: #### [id number] ####[facility] ([facility])[address] [place] [address]Umagblbdllh (Bld) [#/Vol]3.85 10*3/uL Normal1.60-7.60UnUniversity Hospitals Beachwood Medical CenterComment on above:Performed By: #### [id number] ####[facility] ([facility])[address] [place] [address] Neutrophils/100 WBC (Bld)95.9 %High40.0-72.0UnUniversity Hospitals Beachwood Medical Center Comment on above:Performed By: #### [id number] ####[facility] ([facility])[address] [place] [address]GEBF (PER 100 WBCS) BY AUTOMATED COUNT0.0 %Normal0 [facility] CenterComment on above:Performed By: #### [id number] ####[facility] ([facility])[address] [facility] [place] [address]WQCKIXDIL (10*3/UL) IN BLOOD AUTOMATED EACLV063 10*3/hRZeeqgh855-823DbwdsitgnsUniversity Hospitals Beachwood Medical CenterComment on above:Performed By: #### [id number] ####[facility] ([facility])[address] [place] [address]QXL (Bld) [#/Vol]4.12 10*6/uLLow 4.20-5.70UnUniversity Hospitals Beachwood Medical CenterComment on above:Performed By: #### [id number] ####[facility] ([facility])[address] [place] [address]EKT (Bld) [#/Vol]4.02 10*3/uLNormal4.00-10.60UnUniversity Hospitals Beach[facility] Medical Center Comment on above:Performed By: #### [id number] ####[facility] ([facility])[address], [place] [address]BNFFTVMJHORGF METABOLIC PANELon 87-89-2983Kcaqeuk [Mass/Vol]4.4 g/dLNormal3.5-5.7UnUniversity Hospitals Beachwood Medical CenterComment on above:Performed By: #### [id number] ####[facility] ([facility])[address] [place] [address]NJK [Catalytic activity/Vol]101 U/FDccogt76-038AfditmbeqaUniversity Hospitals Beachwood Medical CenterComment on above:Performed By: #### [id number] ####[facility] ([facility])[address], [place] [address]RFN [Catalytic activity/Vol]14 U/L Normal7-52UnUniversity Hospitals Beachwood Medical CenterComment on above:Performed By: #### [id number] ####[facility] ([facility])[address], [place] [address]Rfsez gap [Moles/Vol]17 mmol/LNormal7-20UnUniversity Hospitals Beachwood Medical CenterComment on above:Performed By: #### [id number] ####[facility] ([facility])[address], [place] [address]RBC [Catalytic activity/Vol]12 U/ZJbp89-88UofkrevhktUniversity Hospitals Beachwood Medical CenterComment on above:Performed By: #### [id number] ####[facility] ([facility])[address], [place] [address]Rhuayjjdx [Mass/Vol]0.5 mg/dL Normal0.3-1.0UnUniversity Hospitals Beachwood Medical CenterComment on above:Performed By: #### [id number] ####[facility] ([facility])[address] [place] [address] Calcium [Mass/Vol]9.5 mg/dLNormal8.6-10.3UnUniversity [facility] Comment on above:Performed By: #### [id number] ####[facility] ([facility])[address] [place], [place] [address]Gvoqbdls [Moles/Vol]109 mmol/KGgcp83-520MlzpintoywUniversity Hospitals Beachwood Medical CenterComment on above:Performed By: #### [id number] ####[facility] ([facility])[address] [place], [place] [address]AB7 [Moles/Vol]18 mmol/L Mxs65-72QckpmywfluUniversity Hospitals Beachwood Medical CenterComment on above:Performed By: #### [id number] ####[facility] ([facility])[address] [place], [place] [address]Tvabgvzaih [Mass/Vol]7.65 mg/dLHigh0.70-1.30UnUniversity Hospitals Beachwood Medical CenterComment on above:Performed By: #### [id number] ####[facility] ([facility])[address] [place], [place] [address]KXUEQPUJEY FILTRATION RATE ML/MIN/1.73 SQ M.PREDICTED8.2 mL/min/1.73m*2Low>60.0UnUniversity Hospitals Beachwood Medical CenterComment on above:Result Comment: [facility]???s estimated glomerular filtration rate (eGFR) will no [...] potential consequences that do not disproportionately affect anyone group of individuals.Performed By: #### [id number] ####[facility] ([facility])[address] [place], [place] [address]Xatkbby [Mass/Vol]67 mg/qINdr67-639ZzymrwhschUniversity Hospitals Beachwood Medical CenterComment on above:Performed By: #### [id number] ####[facility] ([facility])[address] [place] [address]Ouikiwfil [Moles/Vol]3.7 mmol/L Normal3.5-5.1UnUniversity Hospitals Beachwood Medical CenterComment on above:Performed By: #### [id number] ####[facility] ([facility])[address] [place] [address] Protein [Mass/Vol]6.9 g/dLNormal6.0-8.3UnUniversity [facility] Center Comment on above:Performed By: #### [id number] ####[facility] ([facility])[address] [place] [address]Rvbieu [Moles/Vol]140 mmol/TAyrzsp761-871NoqaddivalUniversity Hospitals Beachwood Medical CenterComment on above:Performed By: #### [id number] ####[facility] ([facility])[address], [place] [address]Ymyr nitrogen [Mass/Vol] 74 mg/dLHigh7-25UnUniversity Hospitals Beachwood Medical CenterComment on above:Performed By: #### [id number] ####[facility] ([facility])[address] [place] [address] UREA NITROGEN/CREATININE (MASS RATIO) IN SER/PLAS9.7NormalUniversPremier Health Atrium Medical CenterComment on above:Performed By: #### [id number] ####[facility] ([facility])[address], [place] [address]LBHCTODHQY, URINE, RANDOMon 05-26-2024 Creatinine (U) [Mass/Vol]68.0 mg/cWDckfzf04-425HagpkdbrodUniversity Hospitals Beachwood Medical CenterComment on above:Performed By: #### [id number] ####[facility] ([facility])[address], [place] [address]Sesyjc-Wppw 51-92-5993Qyieye-UpNormal [facility] CenterLabon 47-41-2175ArwUufpzwVpvoxmiasv of [place] Medical CenterMAGNESIUMon 21-05-54[address]Lqpkbflkj [Mass/Vol]2.0 mg/dLNormal1.9-2.7 [facility] CenterComment on above:Performed By: #### [id number] ####[facility] ([facility])[address] [place] [address]GCOLNZYRMSis 64-46-3925Ttaetmwca [Mass/Vol]5.9 mg/dLHigh2.5-5.0UnUniversity Hospitals Beachwood Medical CenterComment on above:Performed By: #### [id number] ####[facility] ([facility])[address] [place] [address]VQJWIYH, URINE, RANDOMon 05-26-2024 Protein (U) [Mass/Vol]72.1 mg/dLNormalUniversPremier Health Atrium Medical CenterComment on above:Result Comment: There are no established reference values for random urine specimens.Performed By: #### [id number] ####[facility] ([facility])[address] [place] [address]JJDWCAEEGX LEVELon 53-62-2788Vfoygyiixj (Bld) [Mass/Vol]5.8 ng/mLNormal5.0-20.0UnUniversity Hospitals Beachwood Medical CenterComment on above:Result Comment: The [employer] Tacrolimus assay is a delayed one- step immunoassay for the quantitative determination of tacrolimus in human whole blood using the chemiluminescent microparticle immunoassay (CMIA) technology with flexible assay protocols, referred to as Chemiflex.Performed By: #### [id number] ####[facility] ([facility])[address] [place] [address]DIKX ACID on 91-24-6815Lxnouxace [Mass/Vol]6.4 mg/dLNormal4.4-7.6UnUniversity Hospitals Beachwood Medical CenterComment on above:Performed By: #### [id number] ####[facility] ([facility])[address], [place] [address]WFOMMNKKZ, DIRECTon 05-23-2024 Magnesium [Mass/Vol]0.1 mg/dLNormal0-0.2Un[facility] Comment on above:Performed By: #### [id number] ####[facility] ([facility])[address] [place] [address]QBF WITH AUTO DIFFERENTIALon 63-70-5370Urguemtui (Bld) [#/Vol]0.01 10*3/uLNormal0.00-0.20Un[facility] Comment on above:Performed By: #### [id number] ####[facility] ([facility])[address] [facility] [address]Acfvfefow/100 WBC (Bld)0.2 %Normal0.0-1.0UnUniversity Hospitals Beachwood Medical CenterComment on above:Performed By: #### [id number] ####[facility] ([facility])[address] [place], [place] [address]Ikdnwjkdlym (Bld) [#/Vol] 0.00 10*3/uLNormal0.00-0.50UnUniversity Hospitals Beachwood Medical CenterComment on above: Performed By: #### [id number] ####[facility] ([facility])[address] [place], [place] [address]Itqbgesmqgr/100 WBC (Bld)0.0 %Normal0.0-6.0UnUniversity Hospitals Beachwood Medical CenterComment on above:Performed By: #### [id number] ####[facility] ([facility])[address] [facility] [place] [address]Cpxjswmvzqv distribution width (RBC) [Ratio]15.3 %High11.5-15.0UnUniversity Hospitals Beachwood Medical CenterComment on above:Performed By: #### [id number] ####[facility] ([facility])[address] [facility] [place], [place] [address]IYIFXNIGYEM MEAN CORPUSCULAR HEMOGLOBIN CONCENTRATION (G/DL) BY NAVDXPDQZ03.9 g/zBVugywy46.0-35.0UnUniversity Hospitals Beachwood Medical CenterComment on above:Performed By: #### [id number] ####[facility] ([facility])[address] [place] [address]Thgujklemw (Bld) [Volume fraction]35.7 %Low39.0-55.0UnUniversity Hospitals Beachwood Medical CenterComment on above:Performed By: #### [id number] ####[facility] ([facility])[address] [place] [address] Hemoglobin (Bld) [Mass/Vol]12.1 g/dLLow13.0-17.0UnUniversity Hospitals Beachwood Medical CenterComment on above:Performed By: #### [id number] ####[facility] ([facility])[address] [place] [address]Vsswhfos granulocytes (Bld) [#/Vol] 0.02 10*3/uLNormal0.00-0.20UnUniversity [facility]als [facility] Medical CenterComment on above: Performed By: #### [id number] ####[facility] ([facility])[address] [place] [address]Ndgucqdp granulocytes/100 WBC (Bld)0.4 %Normal0.0-1.0 [facility] CenterComment on above:Performed By: #### [id number] ####[facility] ([facility])[address] [place] [address]Dwhdmxlglvj (Bld) [#/Vol]0.18 10*3/uLLow1.20-4.00UnUniversity [facility]als [facility] Medical CenterComment on above:Performed By: #### [id number] ####[facility] ([facility])[address] [place], [place] [address]Wvphtkfgvga/100 WBC (Bld)3.8 %Low20.0-45.0UnUniversity Hospitals Beachwood Medical CenterComment on above:Performed By: #### [id number] ####[facility] ([facility])[address] [place] [address]SFU (RBC) [Entitic mass] 30.7 gqPgtval64.0-33.0UnUniversity Hospitals Beachwood Medical CenterComment on above: Performed By: #### [id number] ####[facility] ([facility])[address] [place] [address]VAO (RBC) [Entitic vol]90.6 jRVdfvby56.0-98.0UnUniversity Hospitals Beachwood Medical CenterComment on above:Performed By: #### [id number] ####[facility] ([facility])[address] [place] [address]Zoplfyaoa (Bld) [#/Vol] 0.04 10*3/uLLow0.10-1.00UnUniversity [facility]als Beachwood Medical CenterComment on above: Performed By: #### [id number] ####[facility] ([facility])[address] [place] [address]Zxjmobckx/100 WBC (Bld)0.8 %Low5.0-12.0UnUniversity [facility]als Beachwood Medical CenterComment on above:Performed By: #### [id number] ####[facility] ([facility])[address] [place] [address]Anlaviancwr (Bld) [#/Vol]4.52 10*3/uL Normal1.60-7.60UnUniversity Hospitals Beachwood Medical CenterComment on above:Performed By: #### [id number] ####[facility] ([facility])[address] [place] [address] Neutrophils/100 WBC (Bld)94.8 %High40.0-72.0Un[facility] Comment on above:Performed By: #### [id number] ####[facility] ([facility])[address] [place] [address]AQNH (PER 100 WBCS) BY AUTOMATED COUNT0.0 %Normal0 [facility] CenterComment on above:Performed By: #### [id number] ####[facility] ([facility])[address] [facility] [place] [address]DDWYQAUZH (10*3/UL) IN BLOOD AUTOMATED DOCOF669 10*3/zRSjleuz515-929ElwppftsydUniversity Hospitals Beachwood Medical CenterComment on above:Performed By: #### [id number] ####[facility] ([facility])[address] [place] [address]TIF (Bld) [#/Vol]3.94 10*6/uLLow 4.20-5.70UnUniversity Hospitals Beachwood Medical CenterComment on above:Performed By: #### [id number] ####[facility] ([facility])[address] [place] [address]YGZ (Bld) [#/Vol]4.77 10*3/uLNormal4.00-10.60Un[facility] Comment on above:Performed By: #### [id number] ####[facility] ([facility])[address] [place] [address]RRHYSZIRXYXIU METABOLIC PANELon 76-16-3651Hnatxhi [Mass/Vol]4.2 g/dLNormal3.5-5.7UnUniversity [facility]als Beach[facility] Medical CenterComment on above:Performed By: #### [id number] ####[facility] ([facility])[address] [place] [address]WQJ [Catalytic activity/Vol]111 U/QZdaz48-404PxgolaoxihUniversity Hospitals Beachwood Medical CenterComment on above:Performed By: #### [id number] ####[facility] ([facility])[address] [place] [address]QDL [Catalytic activity/Vol]13 U/L Normal7-52UnUniversity Hospitals Beachwood Medical CenterComment on above:Performed By: #### [id number] ####[facility] ([facility])[address] [place] [address]Ktulf gap [Moles/Vol]18 mmol/LNormal7-20UnUniversity [facility]als [facility] Medical CenterComment on above:Performed By: #### [id number] ####[facility] ([facility])[address] [place] [address]WBI [Catalytic activity/Vol]10 U/QFct20-82FlrdhwtyubUniversity Hospitals Beachwood Medical CenterComment on above:Performed By: #### [id number] ####[facility] ([facility])[address] [place] [address]Rpcptdfun [Mass/Vol]0.4 mg/dL Normal0.3-1.0UnUniversity Hospitals Beachwood Medical CenterComment on above:Performed By: #### [id number] ####[facility] ([facility])[address] [place] [address] Calcium [Mass/Vol]9.4 mg/dLNormal8.6-10.3Un[facility] Comment on above:Performed By: #### [id number] ####[facility] ([facility])[address] [place] [address]Jbmhtldq [Moles/Vol]107 mmol/YSsldam33-847 [facility] CenterComment on above:Performed By: #### [id number] ####[facility] ([facility])[address] [place] [address]UX9 [Moles/Vol] 18 mmol/MXvt30-93LdlphmuvsmUniversity Hospitals Beachwood Medical CenterComment on above:Performed By: #### [id number] ####[facility] ([facility])[address] [place] [address] Creatinine [Mass/Vol]9.34 mg/dLHigh0.70-1.30Un[facility] Comment on above:Performed By: #### [id number] ####[facility] ([facility])[address] [place] [address]LGOFJBNFVU FILTRATION RATE ML/MIN/1.73 SQ M.PREDICTED6.4 mL/min/1.73m*2Low>60.0UnUniversity Hospitals Beachwood Medical CenterComment on above:Result Comment: [facility]???s estimated glomerular filtration rate (eGFR) will no [...] potential consequences that do not disproportionately affect anyone group of individuals.Performed By: #### [id number] ####[facility] ([facility])[address] [place] [address]Gcrxdwh [Mass/Vol]67 mg/xUZhi30-492 [facility] CenterComment on above:Performed By: #### [id number] ####[facility] ([facility])[address] [address]Izoxihiel [Moles/Vol]3.9 mmol/LNormal3.5-5.1UnUniversity Hospitals [facility] Medical CenterComment on above:Performed By: #### [id number] ####[facility] ([facility])[address] [place] [address]Yzzieiq [Mass/Vol]6.7 g/dLNormal6.0-8.3UnUniversity [facility]als [facility] Medical CenterComment on above:Performed By: #### [id number] ####[facility] ([facility])[address] [address]Onerfs [Moles/Vol]139 mmol/LNormal 136-145UnUniversity Hospitals [facility]wood Medical CenterComment on above:Performed By: #### [id number] ####[facility] ([facility])[address] [place] [address]Wqih nitrogen [Mass/Vol]83 mg/dLHigh7-25UnUniversity [facility] Medical CenterComment on above:Performed By: #### [id number] ####[facility] ([facility])[address] [place] [address]FXRN NITROGEN/CREATININE (MASS RATIO) IN SER/PLAS8.9Normal [facility] CenterComment on above:Performed By: #### [id number] ####[facility] ([facility])[address] [place] [address]Vzzqc 05-23-2024 LabNormalUniversity Protestant HospitalMAGNESIUMon 41-95-2146Zhiwghbyk [Mass/Vol]2.1 mg/dLNormal1.9-2.7UnUniversity [facility]als [facility] Medical CenterComment on above:Performed By: #### [id number] ####[facility] ([facility])[address] [place] [address]GSOZPHHGOVxj 79-28-1269Uikilcaxc [Mass/Vol]7.5 mg/dLHigh 2.5-5.0UnUniversity Hospitals [facility]wood Medical CenterComment on above:Performed By: #### [id number] ####[facility] ([facility])[place] [address] TACROLIMUS LEVELon 60-34-0916Zwwcttauvb (Bld) [Mass/Vol]5.3 ng/mLNormal5.0-20.0 [facility] CenterComment on above:Result Comment: The [employer] Tacrolimus assay is a delayed one-step immunoassay for the jose a titative determination of tacrolimus in human whole blood using the chemiluminescent microparticle immunoassay (CMIA) technology with flexible assay protocols, referred to as Chemiflex.Performed By: #### [id number] ####[facility] ([facility])[address] [place], [place] [address]NVBF ACIDon 85-58-3449Gfpcumiwk [Mass/Vol]6.7 mg/dLNormal4.4-7.6UnUniversity Hospitals Beachwood Medical CenterComment on above:Performed By: #### [id number] ####[facility] ([facility])[address] [place], [place] [address]rx [id number] said he had not called Anna yet, plans to do so later today. Informed patient that if he had any questions or problems to contact the pharmacy team. -Anabella Krueger, transplant APPE studentNormalUniversity of South Texas Health System McallenBILIRUBIN, DIRECTon 42-16-1730Npritigbs [Mass/Vol]0.1 mg/dLNormal0-0.2 [facility] CenterComment on above:Performed By: #### [id number] ####[facility] ([facility])[address] [place], [place] [address]WGZ WITH AUTO DIFFERENTIALon 90-24-9709Xquwvxlnk (Bld) [#/Vol]0.01 10*3/uLNormal0.00-0.20 [facility] CenterComment on above:Performed By: #### [id number] ####[facility] ([facility])[address] [place], [place] [address]Iccvlomob/100 WBC (Bld)0.2 %Normal0.0-1.0UnUniversity Hospitals Beachwood Medical CenterComment on above: Performed By: #### [id number] ####[facility] ([facility])[address] [address]Dobrxwgvkkm (Bld) [#/Vol]0.01 10*3/uLNormal0.00-0.50 [facility] CenterComment on above:Performed By: #### [id number] ####[facility] ([facility])[address], [place] [address]Xmrszlqkilh/100 WBC (Bld)0.2 %Normal0.0-6.0UnUniversity Hospitals Beachwood Medical CenterComment on above: Performed By: #### [id number] ####[facility] ([facility])[address], [place] [address]Zjzerzhgklt distribution width (RBC) [Ratio]15.3 %High 11.5-15.0UnUniversity Hospitals Beachwood Medical CenterComment on above:Performed By: #### [id number] ####[facility] ([facility])[address] [place] [address] ERYTHROCYTE MEAN CORPUSCULAR HEMOGLOBIN CONCENTRATION (G/DL) BY TBKNIAMRY46.2 g/xQFaqlva87.0-35.0UnUniversity [facility]als [facility] Medical CenterComment on above:Performed By: #### [id number] ####[facility] ([facility])[address], [place] [address]Vkcvtgkijp (Bld) [Volume fraction]37.6 %Low39.0-55.0UnUniversity Hospitals [facility] Medical CenterComment on above:Performed By: #### [id number] ####[facility] ([facility])[address], [place] [address]Zfwpmpiptd (Bld) [Mass/Vol]12.5 g/dL Low13.0-17.0UnUniversity Hospitals Beachwood Medical CenterComment on above:Performed By: #### [id number] ####[facility] ([facility])[address] [place] [address] Immature granulocytes (Bld) [#/Vol]0.03 10*3/uLNormal0.00-0.20UnUniversity [facility]als [facility] Medical CenterComment on above:Performed By: #### [id number] ####[facility] ([facility])[address] [place], [place] [address]Mhzfhrhg granulocytes/100 WBC (Bld)0.6 %Normal0.0-1.0UnUniversity [facility]als [facility]wood Medical CenterComment on above: Performed By: #### [id number] ####[facility] ([facility])[address] [place], [place] [address]Mdcdkkwkbdh (Bld) [#/Vol]0.19 10*3/uLLow1.20-4.00UnUniversity [facility]als [facility] Medical CenterComment on above:Performed By: #### [id number] ####[facility] ([facility])[address] [place] [address]Ypkezhpvfib/100 WBC (Bld) 3.9 %Low20.0-45.0UnUniversity [facility]als [facility] Medical CenterComment on above:Performed By: #### [id number] ####[facility] ([facility])[address] [place], [place] [address]KYT (RBC) [Entitic mass]30.5 jrJpkdqb92.0-33.0UnUniversity Hospitals Beachwood Medical CenterComment on above:Performed By: #### [id number] ####[facility] ([facility])[address] [place], [place] [address]BYT (RBC) [Entitic vol]91.7 fLNormal 82.0-98.0UnUniversity Hospitals Beachwood Medical CenterComment on above:Performed By: #### [id number] ####[facility] ([facility])[address] [place] [address] Monocytes (Bld) [#/Vol]0.05 10*3/uLLow0.10-1.00UnUniversity Hospitals Beachwood Medical CenterComment on above:Performed By: #### [id number] ####[facility] ([facility])[address] [place] [address]Snkzeqorh/100 WBC (Bld)1.0 %Low 5.0-12.0UnUniversity Hospitals Beachwood Medical CenterComment on above:Performed By: #### [id number] ####[facility] ([facility])[address] [place] [address] Neutrophils (Bld) [#/Vol]4.53 10*3/uLNormal1.60-7.60UnUniversity Hospitals Beachwood Medical CenterComment on above:Performed By: #### [id number] ####[facility] ([facility])[address] [place] [address]Goiddzbvhzy/100 WBC (Bld)94.1 %High 40.0-72.0UnUniversity Hospitals Beachwood Medical CenterComment on above:Performed By: #### [id number] ####[facility] ([facility])[address] [place] [address]WONO (PER 100 WBCS) BY AUTOMATED COUNT0.0 %Ogwpie2XptfcsacbbUniversity Hospitals Beach[facility] Center Comment on above:Performed By: #### [id number] ####[facility] ([facility])[address] [place] [address]ZCSVCMAEP (10*3/UL) IN BLOOD AUTOMATED [id number] 10*3/rXOffcmn463-991BjkhxkcfdsUniversity Hospitals Beachwood Medical CenterComment on above: Performed By: #### [id number] ####[facility] ([facility])[address] [place] [address]EYB (Bld) [#/Vol]4.10 10*6/uLLow4.20-5.70UnUniversity Hospitals Beachwood Medical CenterComment on above:Performed By: #### [id number] ####[facility] ([facility])[address] [place] [address]TIZ (Bld) [#/Vol]4.82 10*3/uLNormal 4.00-10.60UnUniversity Hospitals Beachwood Medical CenterComment on above:Performed By: #### [id number] ####[facility] ([facility])[address] [place] [address] COMPREHENSIVE METABOLIC PANELon 69-64-2317Uzqctld [Mass/Vol]4.4 g/dLNormal 3.5-5.7UnUniversity Hospitals Beachwood Medical CenterComment on above:Performed By: #### [id number] ####[facility] ([facility])[address], [place] [address]DXB [Catalytic activity/Vol]112 U/KCmrb55-188YgmtiikumoUniversity Hospitals Beachwood Medical Center Comment on above:Performed By: #### [id number] ####[facility] ([facility])[address], [place] [address]YEL [Catalytic activity/Vol]13 U/LNormal7-52 [facility] Medical CenterComment on above:Performed By: #### [id number] ####[facility] ([facility])[address], [place] [address]Qmpja gap [Moles/Vol]19 mmol/LNormal7-20UnUniversity Hospitals Beachwood Medical CenterComment on above:Performed By: #### [id number] ####[facility] ([facility])[address], [place] [address]GGL [Catalytic activity/Vol]11 U/LIkz60-47CupjfgcnslUniversity Hospitals Beachwood Medical CenterComment on above:Performed By: #### [id number] ####[facility] ([facility])[address], [place] [address]Wtmyrqkrc [Mass/Vol]0.4 mg/dL Normal0.3-1.0UnUniversity Hospitals Beachwood Medical CenterComment on above:Performed By: #### [id number] ####[facility] ([facility])[address] [place] [address] Calcium [Mass/Vol]9.5 mg/dLNormal8.6-10.3UnUniversity Hospitals Beachwood Medical Center Comment on above:Performed By: #### [id number] ####[facility] ([facility])[address] [place], [place] [address]Nikfzyju [Moles/Vol]104 mmol/TVsiswd49-187 [facility] CenterComment on above:Performed By: #### [id number] ####[facility] ([facility])[address] [address]OA4 [Moles/Vol] 20 mmol/WMwk74-05AddayopvosUniversity Hospitals Beachwood Medical CenterComment on above:Performed By: #### [id number] ####[facility] ([facility])[address] [place] [address] Creatinine [Mass/Vol]9.48 mg/dLHigh0.70-1.30UnUniversity Hospitals [facility] Medical Center Comment on above:Performed By: #### [id number] ####[facility] ([facility])[address] [place] [address]WWHGFUHLFR FILTRATION RATE ML/MIN/1.73 SQ M.PREDICTED6.3 mL/min/1.73m*2Low>60.0UnUniversity Hospitals Beachwood Medical CenterComment on above:Result Comment: The [facility]???s estimated glomerular filtration rate (eGFR) will no [...] potential consequences that do not disproportionately affect anyone group of individuals.Performed By: #### [id number] ####[facility] ([facility])[address] [address]Gohdpba [Mass/Vol]67 mg/kNSmp27-499 [facility] Medical CenterComment on above:Performed By: #### [id number] ####[facility] ([facility])[address], [place] [address]Tzysfcvzl [Moles/Vol]4.1 mmol/LNormal3.5-5.1UnUniversity Hospitals Beachwood Medical CenterComment on above:Performed By: #### [id number] ####[facility] ([facility])[address], [place] [address]Toclgry [Mass/Vol]6.8 g/dLNormal6.0-8.3UnUniversity Hospitals Beachwood Medical CenterComment on above:Performed By: #### [id number] ####[facility] ([facility])[address] [place] [address]Zdqtvs [Moles/Vol]139 mmol/LNormal 136-145UnUniversity Hospitals Beachwood Medical CenterComment on above:Performed By: #### [id number] ####[facility] ([facility])[address] [place] [address]Gfof nitrogen [Mass/Vol]74 mg/dLHigh7-25UnUniversity Hospitals Beachwood Medical CenterComment on above:Performed By: #### [id number] ####[facility] ([facility])[address] [place] [address]ZBVY NITROGEN/CREATININE (MASS RATIO) IN SER/PLAS7.8Normal [facility] Medical CenterComment on above:Performed By: #### [id number] ####[facility] ([facility])[address] [place], [place] [address]IHDTLDNGZW, URINE, RANDOMon 53-90-3036Nvayxxmpgn (U) [Mass/Vol]55.0 mg/zVWbuxnz76-229 [facility] CenterComment on above:Performed By: #### [id number] ####[facility] ([facility])[address] [place] [address]Kgfhib-Pmdx 18-63-1591Sulpqg-UpNormalUniversity Protestant HospitalLabon 33-22-5820Eej NormalUnUniversity Hospitals Beachwood Medical CenterMAGNESIUMon 22-98-7219Gvzigcbmz [Mass/Vol]2.2 mg/dLNormal1.9-2.7UnUniversity Hospitals Beachwood Medical CenterComment on above:Performed By: #### [id number] ####[facility] ([facility])[address] [place] [address]OVGVIXMEQOun 73-56-5308Vtpcximfg [Mass/Vol]7.6 mg/dLHigh 2.5-5.0[facility] Medical CenterComment on above:Performed By: #### [id number] ####[facility] ([facility])[address] [place] [address]DYNXTKV, URINE, RANDOMon 33-77-3841Mmevizw (U) [Mass/Vol]71.7 mg/dLNormalUniversPremier Health Atrium Medical CenterComment on above:Result Comment: There are no established reference values for random urine specimens.Performed By: #### [id number] ####[facility] ([facility])[address] [place] [address]KHJYICXAVO LEVELon 57-64-8558Zubrdeewgb (Bld) [Mass/Vol]4.6 ng/mLLow5.0-20.0UnUniversity Hospitals Beachwood Medical CenterComment on above:Result Comment: The [employer] Tacrolimus assay is a delayed one-step immunoassay for the quantitative determination of tacrolimus in human whole blood using the chemiluminescent microparticle i mmunoassay (CMIA) technology with flexible assay protocols, referred to as Chemiflex.Performed By: #### [id number] ####[facility] ([facility])[address] [place] [address]DGEA ACIDon 87-97-1829Tzvcboyzo [Mass/Vol]6.6 mg/dLNormal 4.4-7.6UnUniversity Hospitals Beachwood Medical CenterComment on above:Performed By: #### [id number] ####[facility] ([facility])[address] [place] [address]Smyuac-Qd on 74-17-0736Hbtllx-UpNormalUniversPremier Health Atrium Medical CenterBILIRUBIN, DIRECT on 37-23-5612Xtcqbkwxr [Mass/Vol]0.1 mg/dLNormal0-0.2UnUniversity Hospitals Beachwood Medical CenterComment on above:Performed By: #### [id number] ####[facility] ([facility])[address] [place] [address]KRL WITH AUTO DIFFERENTIALon 82-79-4300Hdxbbtlvo (Bld) [#/Vol]0.02 10*3/uLNormal0.00-0.20UnUniversity Hospitals Beachwood Medical CenterComment on above:Performed By: #### [id number] ####[facility] ([facility])[address], [place] [address]Hronfzuve/100 WBC (Bld)0.4 %Normal 0.0-1.0UnUniversity Hospitals Beachwood Medical CenterComment on above:Performed By: #### [id number] ####[facility] ([facility])[address] [address] Eosinophils (Bld) [#/Vol]0.01 10*3/uLNormal0.00-0.50UnUniversity Hospitals Beachwood Medical CenterComment on above:Performed By: #### [id number] ####[facility] ([facility])[address] [facility] [place] [place], [place] [address]Mtephdgaycg/100 WBC (Bld)0.2 %Normal 0.0-6.0UnUniversity Hospitals Beachwood Medical CenterComment on above:Performed By: #### [id number] ####[facility] ([facility])[address] [address] Erythrocyte distribution width (RBC) [Ratio]15.0 %Kvtwls30.5-15.0UnUniversity Hospitals Beachwood Medical CenterComment on above:Performed By: #### [id number] ####[facility] ([facility])[address], [place] [address]TAUTFUGXRCP MEAN CORPUSCULAR HEMOGLOBIN CONCENTRATION (G/DL) BY SPSGLOJXA50.6 g/cWExcylq96.0-35.0 [facility] CenterComment on above:Performed By: #### [id number] ####[facility] ([facility])[address] [facility] [place] [address]Ubsktybqck (Bld) [Volume fraction]37.2 %Low39.0-55.0UnUniversity Hospitals Beachwood Medical CenterComment on above:Performed By: #### [id number] ####[facility] ([facility])[address] [facility] [place] [address]Clmfjbelwj (Bld) [Mass/Vol]12.5 g/dLLow13.0-17.0UnUniversity Hospitals Beachwood Medical CenterComment on above:Performed By: #### [id number] ####[facility] ([facility])[address] [place], [place] [address]Icpemjab granulocytes (Bld) [#/Vol]0.02 10*3/uLNormal0.00-0.20Un[facility] Comment on above:Performed By: #### [id number] ####[facility] ([facility])[address] [place], [place] [address]Rzoqhihx granulocytes/100 WBC (Bld)0.4 %Normal 0.0-1.0UnUniversity Hospitals Beachwood Medical CenterComment on above:Performed By: #### [id number] ####[facility] ([facility])[address] [place] [address] Lymphocytes (Bld) [#/Vol]0.06 10*3/uLLow1.20-4.00UnUniversity Hospitals Beach[facility] Medical CenterComment on above:Performed By: #### [id number] ####[facility] ([facility])[address] [place], [place] [address]Uuentugnzyx/100 WBC (Bld)1.1 %Low 20.0-45.0UnUniversity Hospitals Beachwood Medical CenterComment on above:Performed By: #### [id number] ####[facility] ([facility])[address] [facility], [place] [address]MZU (RBC) [Entitic mass]30.3 reCfbscw09.0-33.0UnUniversity [facility]als [facility] Comment on above:Performed By: #### [id number] ####[facility] ([facility])[address] [facility], [place] [address]ASB (RBC) [Entitic vol]90.3 nFSgfekf05.0-98.0 [facility] CenterComment on above:Performed By: #### [id number] ####[facility] ([facility])[address] [facility], [place] [address]Akxcdaaoc (Bld) [#/Vol]0.09 10*3/uLLow0.10-1.00UnUniversity Hospitals Beachwood Medical CenterComment on above:Performed By: #### [id number] ####[facility] ([facility])[address] [place] [address]Xjrvzyhdq/100 WBC (Bld)1.6 %Low5.0-12.0UnUniversity Hospitals Beachwood Medical CenterComment on above:Performed By: #### [id number] ####[facility] ([facility])[address] [place] [address]Sgddhzvdzzy (Bld) [#/Vol]5.26 10*3/uL Normal1.60-7.60UnUniversity Hospitals Beachwood Medical CenterComment on above:Performed By: #### [id number] ####[facility] ([facility])[address] [place] [address] Neutrophils/100 WBC (Bld)96.3 %High40.0-72.0Un[facility] Comment on above:Performed By: #### [id number] ####[facility] ([facility])[address] [place] [address]NCNX (PER 100 WBCS) BY AUTOMATED COUNT0.0 %Normal0 [facility] CenterComment on above:Performed By: #### [id number] ####[facility] ([facility])[address] [place] [address]CTTQBZZSI (10*3/UL) IN BLOOD AUTOMATED [id number] 10*3/eLMemmhd550-987NkflvxyrxlUniversity Hospitals Beachwood Medical CenterComment on above:Performed By: #### [id number] ####[facility] ([facility])[address] [place] [address]DTL (Bld) [#/Vol]4.12 10*6/uLLow 4.20-5.70UnUniversity Hospitals Beachwood Medical CenterComment on above:Performed By: #### [id number] ####[facility] ([facility])[address] [place] [address]XJA (Bld) [#/Vol]5.46 10*3/uLNormal4.00-10.60Un[facility] Comment on above:Performed By: #### [id number] ####[facility] ([facility])[address] [place] [address]HPMXBAGIUAYCO METABOLIC PANELon 23-43-1739Whlnotn [Mass/Vol]4.0 g/dLNormal3.5-5.7UnUniversity Hospitals Beach[facility] Medical CenterComment on above:Performed By: #### [id number] ####[facility] ([facility])[address] [place] [address]WZH [Catalytic activity/Vol]112 U/IVcjj88-035OhdavsyltfUniversity Hospitals Beachwood Medical CenterComment on above:Performed By: #### [id number] ####[facility] ([facility])[address] [place] [address]KFD [Catalytic activity/Vol]14 U/L Normal7-52UnUniversity Hospitals Beachwood Medical CenterComment on above:Performed By: #### [id number] ####[facility] ([facility])[address], [place] [address]Zxlyp gap [Moles/Vol]18 mmol/LNormal7-20UnUniversity Hospitals [facility] Medical CenterComment on above:Performed By: #### [id number] ####[facility] ([facility])[address] [place] [address]WFB [Catalytic activity/Vol]12 U/UKmz94-67MikdoddqezUniversity Hospitals Beachwood Medical CenterComment on above:Performed By: #### [id number] ####[facility] ([facility])[address], [place] [address]Wkwchvueb [Mass/Vol]0.4 mg/dL Normal0.3-1.0UnUniversity Hospitals Beachwood Medical CenterComment on above:Performed By: #### [id number] ####[facility] ([facility])[address] [place] [address] Calcium [Mass/Vol]9.1 mg/dLNormal8.6-10.3Un[facility] Comment on above:Performed By: #### [id number] ####[facility] ([facility])[address] [place] [address]Rbxcdrbz [Moles/Vol]105 mmol/HZjbqmq34-671 [facility] CenterComment on above:Performed By: #### [id number] ####[facility] ([facility])[address] [place] [address]BO9 [Moles/Vol] 21 mmol/RBjlzjk58-90GwlchknkoyUniversity Hospitals Beachwood Medical CenterComment on above: Performed By: #### [id number] ####[facility] ([facility])[address] [place] [address]Aptwjjmqfq [Mass/Vol]8.69 mg/dLHigh0.70-1.30UnUniversity Hospitals Beachwood Medical CenterComment on above:Performed By: #### [id number] ####[facility] ([facility])[address], [place] [address]VGLIXOPSDR FILTRATION RATE ML/MIN/1.73 SQ M.PREDICTED7.0 mL/min/1.73m*2Low>60.0Un[facility] Comment on above:Result Comment: The [facility]???s estimated glomerular filtration rate (eGFR) will no longer include consideration of race in its calculation. The National Kidney Foundation???s eGFR Task Force developed new recommendations for the estimation of the glomerular filtration ra te in the [place] They recommend immediate implementation of the new equation refit without the race variable in all laboratories because the calculation does not include race. In addition to not including race in the calculation and reporting, it included diversity in its development, and has acceptable performance characteristics and potential consequences that do not disproportionately affect anyone group of individuals.Performed By: #### [id number] ####[facility] ([facility])[address] [place] [address]Llmuvlg [Mass/Vol]109 mg/zMUzrh54-874CmvexzrbphUniversity Hospitals Beachwood Medical CenterComment on above:Performed By: #### [id number] ####[facility] ([facility])[address] [place] [address]Yknhvsgrt [Moles/Vol]4.0 mmol/LNormal3.5-5.1UnUniversity Hospitals [facility] Medical CenterComment on above:Performed By: #### [id number] ####[facility] ([facility])[address] [place] [address]Olktbso [Mass/Vol]6.2 g/dLNormal 6.0-8.3UnUniversity Hospitals Beachwood Medical CenterComment on above:Performed By: #### [id number] ####[facility] ([facility])[address] [place] [address]Pdoaxg [Moles/Vol]140 mmol/YPbfwil251-742TdcddjgaxnUniversity Hospitals Beachwood Medical CenterComment on above:Performed By: #### [id number] ####[facility] ([facility])[address], [place] [address]Bkeq nitrogen [Mass/Vol]69 mg/dLHigh7-25UnUniversity Hospitals [facility] Medical CenterComment on above:Performed By: #### [id number] ####[facility] ([facility])[address], [place] [address]KPJB NITROGEN/CREATININE (MASS RATIO) IN SER/PLAS7.9NormalUniversPremier Health Atrium Medical CenterComment on above: Performed By: #### [id number] ####[facility] ([facility])[address], [place] [address]ATTNUOATDT, URINE, RANDOMon 97-04-3466Delxepwkwe (U) [Mass/Vol]51.0 mg/fIQyftpn01-922FqtqbxtsuzUniversity Hospitals Beachwood Medical CenterComment on above:Performed By: #### [id number] ####[facility] ([facility])[address] [place] [address] Follow-Upon 01-70-5838Ufauxv-UpNormalUniversity of [facility] Health System McallenLabon 72-73-4115GmrMlzbzbDyoymmlbmw of [facility] McallenMAGNESIUMon 05-19-2024 Magnesium [Mass/Vol]2.2 mg/dLNormal1.9-2.7Un[facility] Comment on above:Performed By: #### [id number] ####[facility] ([facility])[address], [place] [address]DQYWPGCFEAzc 70-67-3807Jyeyoraua [Mass/Vol]6.3 mg/dLHigh2.5-5.0UnUniversity Hospitals [facility] Medical CenterComment on above:Performed By: #### [id number] ####[facility] ([facility])[address] [place] [address] PROTEIN, URINE, RANDOMon 93-64-6673Ypimmxz (U) [Mass/Vol]82.5 mg/dLNormal [facility] CenterComment on above:Result Comment: There are no established reference values for random urine specimens.Performed By: #### [id number] ####[facility] ([facility])[address] [place] [address] TACROLIMUS LEVELon 20-17-8077Zpkjlndqcd (Bld) [Mass/Vol]3.6 ng/mLLow5.0-20.0 [facility] CenterComment on above:Result Comment: The [employer] Tacrolimus assay is a delayed one-step immunoassay for the jose a titative determination of tacrolimus in human whole blood using the chemiluminescent microparticle immunoassay (CMIA) technology with flexible assay protocols, referred to as Chemiflex.Performed By: #### [id number] ####[facility] ([facility])[address] [place], [place] [address]LZZC ACIDon 00-56-8819Scjsqvqrc [Mass/Vol]6.0 mg/dLNormal4.4-7.6UnUniversity [facility]als [facility] Medical CenterComment on above:Performed By: #### [id number] ####[facility] ([facility])[address] [place], [place] [address]MTDKTAOBU, DIRECTon 81-82-0715Cblxxxrpm [Mass/Vol]0.1 mg/dL Normal0-0.2UnUniversity [facility]als [facility] Medical CenterComment on above:Performed By: #### [id number] ####[facility] ([facility])[address] [place], [place] [address]EHR WITH AUTO DIFFERENTIALon 36-59-5593Qsbjqmwgw (Bld) [#/Vol]0.00 10*3/uLNormal 0.00-0.20UnUniversity [facility]als [facility] Medical CenterComment on above:Performed By: #### [id number] ####[facility] ([facility])[address] [place] [address] Basophils/100 WBC (Bld)0.0 %Normal0.0-1.0Un[facility]als [facility] Comment on above:Performed By: #### [id number] ####[facility] ([facility])[address] [place], [place] [address]Ljspnoeiiui (Bld) [#/Vol]0.01 10*3/uLNormal 0.00-0.50UnUniversity Hospitals [facility] Medical CenterComment on above:Performed By: #### [id number] ####[facility] ([facility])[address] [place] [address] Eosinophils/100 WBC (Bld)0.2 %Normal0.0-6.0Un[facility] Comment on above:Performed By: #### [id number] ####[facility] ([facility])[address] [place], [place] [address]Tipjodlvxvx distribution width (RBC) [Ratio]15.2 % High11.5-15.0UnUniversity Hospitals [facility]wood Medical CenterComment on above:Performed By: #### [id number] ####[facility] ([facility])[address] [place] [address] ERYTHROCYTE MEAN CORPUSCULAR HEMOGLOBIN CONCENTRATION (G/DL) BY TQBXCHNRS58.9 g/pCJrshfk32.0-35.0UnUniversity Hospitals [facility] Medical CenterComment on above:Performed By: #### [id number] ####[facility] ([facility])[address] [place], [place] [address]Kgiogywyfl (Bld) [Volume fraction]39.2 %Ogpylu31.0-55.0UnUniversity Hospitals [facility] Medical CenterComment on above:Performed By: #### [id number] ####[facility] ([facility])[address] [place], [place] [address]Ywvudmrzrm (Bld) [Mass/Vol]12.9 g/dL Low13.0-17.0UnUniversity Hospitals Beachwood Medical CenterComment on above:Performed By: #### [id number] ####[facility] ([facility])[address] [facility] [place] [address] Immature granulocytes (Bld) [#/Vol]0.04 10*3/uLNormal0.00-0.20UnUniversity [facility]als [facility] Medical CenterComment on above:Performed By: #### [id number] ####[facility] ([facility])[address] [facility] [address]Agshbiwo granulocytes/100 WBC (Bld)0.6 %Normal0.0-1.0UnUniversity Hospitals [facility]wood Medical CenterComment on above: Performed By: #### [id number] ####[facility] ([facility])[address] [place], [place] [address]Qibtuevmkpu (Bld) [#/Vol]0.08 10*3/uLLow1.20-4.00UnUniversity [facility]als [facility] Medical CenterComment on above:Performed By: #### [id number] ####[facility] ([facility])[address] [facility] [place], [place] [address]Witqxzsdrko/100 WBC (Bld) 1.3 %Low20.0-45.0UnUniversity Hospitals [facility]wood Medical CenterComment on above:Performed By: #### [id number] ####[facility] ([facility])[address] [place], [place] [address]DCM (RBC) [Entitic mass]30.1 akMjigyr55.0-33.0UnUniversity Hospitals [facility]wood Medical CenterComment on above:Performed By: #### [id number] ####[facility] ([facility])[address] [place], [place] [address]VYH (RBC) [Entitic vol]91.6 fLNormal 82.0-98.0UnUniversity Hospitals Beachwood Medical CenterComment on above:Performed By: #### [id number] ####[facility] ([facility])[address] [place] [address] Monocytes (Bld) [#/Vol]0.17 10*3/uLNormal0.10-1.00UnUniversity Hospitals Beachwood Medical CenterComment on above:Performed By: #### [id number] ####[facility] ([facility])[address] [place] [address]Hehjpzcgi/100 WBC (Bld)2.8 %Low 5.0-12.0UnUniversity Hospitals Beachwood Medical CenterComment on above:Performed By: #### [id number] ####[facility] ([facility])[address] [place] [address] Neutrophils (Bld) [#/Vol]5.88 10*3/uLNormal1.60-7.60UnUniversity Hospitals Beachwood Medical CenterComment on above:Performed By: #### [id number] ####[facility] ([facility])[address], [place] [address]Bmrllgzkuqe/100 WBC (Bld)95.1 %High 40.0-72.0UnUniversity [facility] Beachwood Medical CenterComment on above:Performed By: #### [id number] ####[facility] ([facility])[address] [address]NUFW (PER 100 WBCS) BY AUTOMATED COUNT0.0 %Dndadv8ScoirkfiedUniversity Hospitals [facility] Center Comment on above:Performed By: #### [id number] ####[facility] ([facility])[address] [place] [address]XPEBRSENI (10*3/UL) IN BLOOD AUTOMATED [id number] 10*3/oLPqkpkb365-654EjfybwxkihUniversity Hospitals Beachwood Medical CenterComment on above: Performed By: #### [id number] ####[facility] ([facility])[address], [place] [address]NUC (Bld) [#/Vol]4.28 10*6/uLNormal4.20-5.70UnUniversity Hospitals Beachwood Medical CenterComment on above:Performed By: #### [id number] ####[facility] ([facility])[address], [place] [address]DQP (Bld) [#/Vol]6.18 10*3/uLNormal4.00-10.60UnUniversity Hospitals Beachwood Medical CenterComment on above: Performed By: #### [id number] ####[facility] ([facility])[address] [place] [address]NRGIPHLLYUMSN METABOLIC PANELon 80-97-8414Sxopgtf [Mass/Vol] 4.2 g/dLNormal3.5-5.7UnUniversity Hospitals Beachwood Medical CenterComment on above: Performed By: #### [id number] ####[facility] ([facility])[address] [place] [place] [address]HKF [Catalytic activity/Vol]110 U/SVszl12-574SnyyclrkxqUniversity Hospitals Beachwood Medical CenterComment on above:Performed By: #### [id number] ####[facility] ([facility])[address] [place] [address]WIJ [Catalytic activity/Vol]18 U/L Normal7-52UnUniversity Hospitals Beachwood Medical CenterComment on above:Performed By: #### [id number] ####[facility] ([facility])[address], [place] [address]Wazwp gap [Moles/Vol]20 mmol/LNormal7-20UnUniversity Hospitals [facility] Medical CenterComment on above:Performed By: #### [id number] ####[facility] ([facility])[address] [place] [address]ZLM [Catalytic activity/Vol]11 U/VFyy14-13JsicucevxdUniversity Hospitals Beachwood Medical CenterComment on above:Performed By: #### [id number] ####[facility] ([facility])[address], [place] [address]Ugkuonszi [Mass/Vol]0.4 mg/dL Normal0.3-1.0UnUniversity Hospitals Beachwood Medical CenterComment on above:Performed By: #### [id number] ####[facility] ([facility])[address] [place] [address] Calcium [Mass/Vol]9.5 mg/dLNormal8.6-10.3UnUniversity [facility]als [facility] Comment on above:Performed By: #### [id number] ####[facility] ([facility])[address] [place] [address]Ytsyceyk [Moles/Vol]104 mmol/OPmsgoq62-904 [facility] CenterComment on above:Performed By: #### [id number] ####[facility] ([facility])[address] [place] [address]OG1 [Moles/Vol] 20 mmol/WUni69-21EooroqlsptUniversity Hospitals Beachwood Medical CenterComment on above:Performed By: #### [id number] ####[facility] ([facility])[address] [facility] [place] [address] Creatinine [Mass/Vol]11.41 mg/dLHigh0.70-1.30UnUniversity [facility] Comment on above:Performed By: #### [id number] ####[facility] ([facility])[address] [place] [address]LEKGIFXUMD FILTRATION RATE ML/MIN/1.73 SQ M.PREDICTED5.1 mL/min/1.73m*2Low>60.0UnUniversity Hospitals Beachwood Medical CenterComment on above:Result Comment: [facility]???s estimated glomerular filtration rate (eGFR) will no [...] potential consequences that do not disproportionately affect anyone group of individuals.Performed By: #### [id number] ####[facility] ([facility])[address] [place] [address]Ynlzysg [Mass/Vol]94 mg/aJLietxa23-621 [facility] CenterComment on above:Performed By: #### [id number] ####[facility] ([facility])[address] [place] [address]Xiwedexgl [Moles/Vol]4.3 mmol/LNormal3.5-5.1UnUniversity Hospitals [facility] Medical CenterComment on above:Performed By: #### [id number] ####[facility] ([facility])[address] [place] [address]Jormbsw [Mass/Vol]6.5 g/dLNormal6.0-8.3UnUniversity Hospitals [facility] Medical CenterComment on above:Performed By: #### [id number] ####[facility] ([facility])[address] [address]Hyjtdp [Moles/Vol]140 mmol/LNormal 136-145UnUniversity Hospitals [facility] Medical CenterComment on above:Performed By: #### [id number] ####[facility] ([facility])[address] [place] [address]Vcpw nitrogen [Mass/Vol]106 mg/dLHigh7-25UnUniversity Hospitals [facility] Medical CenterComment on above:Performed By: #### [id number] ####[facility] ([facility])[address] [place] [address]QEGG NITROGEN/CREATININE (MASS RATIO) IN SER/PLAS9.3Normal [facility] CenterComment on above:Performed By: #### [id number] ####[facility] ([facility])[address] [place] [address]VAFQWRDBKJ, URINE, RANDOMon 91-45-9693Mhxpzystni (U) [Mass/Vol]57.0 mg/pQVgtmvj73-187 [facility] CenterComment on above:Performed By: #### [id number] ####[facility] ([facility])[address] [place] [address]Uutrjt-Ufmp 48-09-6078Jffwlg-UpNormalUniversity Protestant HospitalLabon 98-41-2641Dsz NormalUnUniversity Hospitals [facility] Medical CenterMAGNESIUMon 51-84-9046Ihguyyjgx [Mass/Vol]2.4 mg/dLNormal1.9-2.7UnUniversity Hospitals [facility] Medical CenterComment on above:Performed By: #### [id number] ####[facility] ([facility])[address] [place] [address]BWJUGGHUTZcx 75-59-4882Mewzegzwv [Mass/Vol]6.9 mg/dLHigh 2.5-5.0UnUniversity Hospitals [facility] Medical CenterComment on above:Performed By: #### [id number] ####[facility] ([facility])[address] [facility]INAGE[facility] [place] [address]JFQVZBT, URINE, RANDOMon 64-91-6550Qqzebdb (U) [Mass/Vol]72.5 mg/dLNormalUniversPremier Health Atrium Medical CenterComment on above:Result Comment: There are no established reference values for random urine specimens.Performed By: #### [id number] ####[facility] ([facility])[address] [place], [place] [address]KSKPJLYHXA LEVELon 99-66-2524Vljmlvczcd (Bld) [Mass/Vol]4.3 ng/mLLow5.0-20.0UnUniversity Hospitals [facility]wood Medical CenterComment on above:Result Comment: The [employer] Tacrolimus assay is a delayed one-step immunoassay for the quantitative determination of tacrolimus in human whole blood using the chemiluminescent microparticle i mmunoassay (CMIA) technology with flexible assay protocols, referred to as Chemiflex.Performed By: #### [id number] ####[facility] ([facility])[address] [place], [place] [address]RZTJ ACIDon 10-20-6240Wrsyqzhei [Mass/Vol]8.6 mg/dLHigh 4.4-7.6UnUniversity Hospitals [facility] Medical CenterComment on above:Performed By: #### [id number] ####[facility] ([facility])[address] [place] [address] BILIRUBIN, DIRECTon 12-16-7638Knzdrggek [Mass/Vol]0.1 mg/dLNormal0-0.2UnUniversity Hospitals [facility] Medical CenterComment on above:Performed By: #### [id number] ####[facility] ([facility])[address] [place], [place] [address]RVI WITH AUTO DIFFERENTIALon 24-62-0041Rwfqgwulm (Bld) [#/Vol]0.01 10*3/uLNormal0.00-0.20 [facility] CenterComment on above:Performed By: #### [id number] ####[facility] ([facility])[address] [place], [place] [address]Yvnsicntr/100 WBC (Bld)0.2 %Normal0.0-1.0UnUniversity Hospitals [facility] Medical CenterComment on above: Performed By: #### [id number] ####[facility] ([facility])[address] [place], [place] [address]Mwuhjhabpcv (Bld) [#/Vol]0.01 10*3/uLNormal0.00-0.50 [facility] CenterComment on above:Performed By: #### [id number] ####[facility] ([facility])[address] [place], [place] [address]Qkqjulhimfj/100 WBC (Bld)0.2 %Normal0.0-6.0UnUniversity Hospitals [facility] Medical CenterComment on above: Performed By: #### [id number] ####[facility] ([facility])[address] [place], [place] [address]Dqbdbwwtywm distribution width (RBC) [Ratio]14.8 %Normal 11.5-15.0UnUniversity Hospitals [facility] Medical CenterComment on above:Performed By: #### [id number] ####[facility] ([facility])[address] [place] [address] ERYTHROCYTE MEAN CORPUSCULAR HEMOGLOBIN CONCENTRATION (G/DL) BY YKYHBSKCG94.6 g/wGGbpqzq55.0-35.0UnUniversity Hospitals Beachwood Medical CenterComment on above:Performed By: #### [id number] ####[facility] ([facility])[address] [place], [place] [address]Bmuiuawjln (Bld) [Volume fraction]38.1 %Low39.0-55.0UnUniversity Hospitals [facility] Medical CenterComment on above:Performed By: #### [id number] ####[facility] ([facility])[address] [place], [place] [address]Jvyoklqbqj (Bld) [Mass/Vol]12.8 g/dL Low13.0-17.0UnUniversity Hospitals [facility] Medical CenterComment on above:Performed By: #### [id number] ####[facility] ([facility])[address] [facility]GE[facility] [place] [address] Immature granulocytes (Bld) [#/Vol]0.02 10*3/uLNormal0.00-0.20UnUniversity Hospitals [facility] Medical CenterComment on above:Performed By: #### [id number] ####[facility] ([facility])[address] [facility] [place], [place] [address]Ahpihpxv granulocytes/100 WBC (Bld)0.3 %Normal0.0-1.0UnUniversity Hospitals [facility] Medical CenterComment on above: Performed By: #### [id number] ####[facility] ([facility])[address] [place], [place] [address]Lpcytrgrlqi (Bld) [#/Vol]0.11 10*3/uLLow1.20-4.00UnUniversity Hospitals [facility] Medical CenterComment on above:Performed By: #### [id number] ####[facility] ([facility])[address] [facility] [place], [place] [address]Xmtbuozvxsq/100 WBC (Bld) 1.9 %Low20.0-45.0UnUniversity Hospitals [facility] Medical CenterComment on above:Performed By: #### [id number] ####[facility] ([facility])[address] [facility]GE[facility] MEDICAL C[place]ERK[place], [place] [address]GMW (RBC) [Entitic mass]30.0 ewFmvqzo41.0-33.0UnUniversity Hospitals [facility] Medical CenterComment on above:Performed By: #### [id number] ####[facility] ([facility])[address] [facility] [place], [place] [address]AQB (RBC) [Entitic vol]89.4 fLNormal 82.0-98.0UnUniversity Hospitals [facility] Medical CenterComment on above:Performed By: #### [id number] ####[facility] ([facility])[address] [facility] [place] [address] Monocytes (Bld) [#/Vol]0.25 10*3/uLNormal0.10-1.00UnUniversity Hospitals [facility] Medical CenterComment on above:Performed By: #### [id number] ####[facility] ([facility])[address] [place] [address]Ynpjdyxhb/100 WBC (Bld)4.2 %Low 5.0-12.0UnUniversity Hospitals Beachwood Medical CenterComment on above:Performed By: #### [id number] ####[facility] ([facility])[address] [place] [address] Neutrophils (Bld) [#/Vol]5.52 10*3/uLNormal1.60-7.60UnUniversity Hospitals [facility] Medical CenterComment on above:Performed By: #### [id number] ####[facility] ([facility])[address], [place] [address]Bkqilawhnwv/100 WBC (Bld)93.2 %High 40.0-72.0UnUniversity Hospitals [facility]wood Medical CenterComment on above:Performed By: #### [id number] ####[facility] ([facility])[address], [place] [address]MGZO (PER 100 WBCS) BY AUTOMATED COUNT0.0 %Zddlqq9SjsdhxazweUniversity Hospitals [facility] Center Comment on above:Performed By: #### [id number] ####[facility] ([facility])[address], [place] [address]IPCPPCQPT (10*3/UL) IN BLOOD AUTOMATED [id number] 10*3/cXMjevft352-963DpdwoukjppUniversity Hospitals Beachwood Medical CenterComment on above: Performed By: #### [id number] ####[facility] ([facility])[address], [place] [address]XZQ (Bld) [#/Vol]4.26 10*6/uLNormal4.20-5.70UnUniversity Hospitals [facility] Medical CenterComment on above:Performed By: #### [id number] ####[facility] ([facility])[address], [place] [address]FPV (Bld) [#/Vol]5.92 10*3/uLNormal4.00-10.60UnUniversity Hospitals [facility] Medical CenterComment on above: Performed By: #### [id number] ####[facility] ([facility])[address] [place], [place] [address]BCCROXILNKLIJ METABOLIC PANELon 20-14-8724Scfxepb [Mass/Vol] 4.0 g/dLNormal3.5-5.7UnUniversity Hospitals [facility] Medical CenterComment on above: Performed By: #### [id number] ####[facility] ([facility])[address] [place], [place] [address]HRV [Catalytic activity/Vol]105 U/VYsno34-244TrdiydiwqhUniversity Hospitals Beachwood Medical CenterComment on above:Performed By: #### [id number] ####[facility] ([facility])[address], [place] [address]ZFD [Catalytic activity/Vol]19 U/L Normal7-52UnUniversity Hospitals Beachwood Medical CenterComment on above:Performed By: #### [id number] ####[facility] ([facility])[address] [place], [place] [address]Jhtpi gap [Moles/Vol]17 mmol/LNormal7-20UnUniversity Hospitals [facility] Medical CenterComment on above:Performed By: #### [id number] ####[facility] ([facility])[address] [place], [place] [address]XKI [Catalytic activity/Vol]12 U/WFmn35-35MdqppaudfaUniversity Hospitals Beachwood Medical CenterComment on above:Performed By: #### [id number] ####[facility] ([facility])[address] [place], [place] [address]Bllfxkcfq [Mass/Vol]0.4 mg/dL Normal0.3-1.0UnUniversity Hospitals [facility] Medical CenterComment on above:Performed By: #### [id number] ####[facility] ([facility])[address] [place] [address] Calcium [Mass/Vol]9.1 mg/dLNormal8.6-10.3UnUniversity [facility] Comment on above:Performed By: #### [id number] ####[facility] ([facility])[address], [place] [address]Tbwncdvx [Moles/Vol]104 mmol/CMladfy87-197 [facility] CenterComment on above:Performed By: #### [id number] ####[facility] ([facility])[address], [place] [address]TY9 [Moles/Vol] 22 mmol/HNvppug87-98VjmmilulaaUniversity Hospitals Beachwood Medical CenterComment on above: Performed By: #### [id number] ####[facility] ([facility])[address], [place] [address]Bxronxilhx [Mass/Vol]10.95 mg/dLHigh0.70-1.30UnUniversity Hospitals [facility] Medical CenterComment on above:Performed By: #### [id number] ####[facility] ([facility])[address], [place] [address]ICDDTUBZBM FILTRATION RATE ML/MIN/1.73 SQ M.PREDICTED5.3 mL/min/1.73m*2Low>60.0UnUniversity [facility] Comment on above:Result Comment: The [facility]???s estimated glomerular filtration rate (eGFR) will no longer include consideration of race in its calculation. The National Kidney Foundation???s eGFR Task Force developed new recommendations for the estimation of the glomerular filtration ra te in the [place] They recommend immediate implementation of the new equation refit without the race variable in all laboratories because the calculation does not include race. In addition to not including race in the calculation and reporting, it included diversity in its development, and has acceptable performance characteristics and potential consequences that do not disproportionately affect anyone group of individuals.Performed By: #### [id number] ####[facility] ([facility])[address], [place] [address]Tiewzuj [Mass/Vol]67 mg/zJDuh30-863TxgxuuwktbUniversity Hospitals Beachwood Medical CenterComment on above: Performed By: #### [id number] ####[facility] ([facility])[address], [place] [address]Qlwhaagmp [Moles/Vol]4.0 mmol/LNormal3.5-5.1UnUniversity Hospitals [facility] Medical CenterComment on above:Performed By: #### [id number] ####[facility] ([facility])[address] [place] [address]Elndwil [Mass/Vol]6.1 g/dLNormal 6.0-8.3UnUniversity Hospitals [facility] Medical CenterComment on above:Performed By: #### [id number] ####[facility] ([facility])[address] [place] [address]Hmkjcy [Moles/Vol]139 mmol/WTquiwm421-231FtatzwuxlqUniversity Hospitals [facility]wood Medical CenterComment on above:Performed By: #### [id number] ####[facility] ([facility])[address] [place] [address]Kfce nitrogen [Mass/Vol]103 mg/dLHigh7-25UnUniversity [facility]als [facility] Medical CenterComment on above:Performed By: #### [id number] ####[facility] ([facility])[address] [place], [place] [address]KSSS NITROGEN/CREATININE (MASS RATIO) IN SER/PLAS9.4NormalUniversPremier Health Atrium Medical CenterComment on above: Performed By: #### [id number] ####[facility] ([facility])[address] [place], [place] [address]QGSNMGPEKB, URINE, RANDOMon 07-80-7721Vdlbthjctf (U) [Mass/Vol]54.0 mg/iIFomaxe67-680VqtfvuagvoUniversity Hospitals Beachwood Medical CenterComment on above:Performed By: #### [id number] ####[facility] ([facility])[address] [place] [address] Follow-Upon 11-89-3005Yjjyiq-UpNormalUniversity of South [facility] Health System McallenLabon 89-42-3305TzdLnjsoxHjolomenol of [facility] Health System McallenMAGNESIUMon 05-14-2024 Magnesium [Mass/Vol]2.4 mg/dLNormal1.9-2.7UnUniversity [facility] Comment on above:Performed By: #### [id number] ####[facility] ([facility])[address] [place] [address]BJCKEVDCOGdq 46-23-8270Wwycplyhk [Mass/Vol]6.8 mg/dLHigh2.5-5.0UnUniversity Hospitals [facility] Medical CenterComment on above:Performed By: #### [id number] ####[facility] ([facility])[place] [address] PROTEIN, URINE, RANDOMon 89-39-4782Xgxjjtb (U) [Mass/Vol]65.6 mg/dLNormal [facility] CenterComment on above:Result Comment: There are no established reference values for random urine specimens.Performed By: #### [id number] ####[facility] ([facility])[address] ADAMGE[facility] [place] [address] TACROLIMUS LEVELon 82-03-1747Zbhkfkszbd (Bld) [Mass/Vol]3.8 ng/mLLow5.0-20.0 [facility] CenterComment on above:Result Comment: The [employer] Tacrolimus assay is a delayed one-step immunoassay for the jose a titative determination of tacrolimus in human whole blood using the chemiluminescent microparticle immunoassay (CMIA) technology with flexible assay protocols, referred to as Chemiflex.Performed By: #### [id number] ####[facility] ([facility])[address] [place] [address]DEAF ACIDon 42-62-0333Pxmzjqdqz [Mass/Vol]8.8 mg/dLHigh4.4-7.6UnUniversity [facility]als [facility] CenterComment on above:Performed By: #### [id number] ####[facility] ([facility])[address] [place], [place] [address]WTRGHLSPC, DIRECTon 31-57-1679Msviyralk [Mass/Vol]0.1 mg/dL Normal0-0.2UnUniversity [facility]als [facility] Medical CenterComment on above:Performed By: #### [id number] ####[facility] ([facility])[address] [place] [address]YCF WITH AUTO DIFFERENTIALon 79-50-9921Btjxvgduc (Bld) [#/Vol]0.00 10*3/uLNormal 0.00-0.20UnUniversity [facility]als [facility] CenterComment on above:Performed By: #### [id number] ####[facility] ([facility])[address] [place] [address] Basophils/100 WBC (Bld)0.0 %Normal0.0-1.0Un[facility] Comment on above:Performed By: #### [id number] ####[facility] ([facility])[address] [place], [place] [address]Bkyumnmnhzu (Bld) [#/Vol]0.02 10*3/uLNormal 0.00-0.50UnUniversity [facility]als [facility] Medical CenterComment on above:Performed By: #### [id number] ####[facility] ([facility])[address] [place] [address] Eosinophils/100 WBC (Bld)0.3 %Normal0.0-6.0Un[facility] Comment on above:Performed By: #### [id number] ####[facility] ([facility])[address] [place], [place] [address]Vxnexepgxjk distribution width (RBC) [Ratio]14.7 % Ubufik96.5-15.0UnUniversity Hospitals [facility] Medical CenterComment on above:Performed By: #### [id number] ####[facility] ([facility])[address] [place] [address] ERYTHROCYTE MEAN CORPUSCULAR HEMOGLOBIN CONCENTRATION (G/DL) BY TMIOQMSUE95.1 g/oVVnlkdu08.0-35.0UnUniversity Hospitals [facility] Medical CenterComment on above:Performed By: #### [id number] ####[facility] ([facility])[address] [place], [place] [address]Gpxwreylbq (Bld) [Volume fraction]41.1 %Oqpuie17.0-55.0UnUniversity [facility]als [facility] Medical CenterComment on above:Performed By: #### [id number] ####[facility] ([facility])[address] [place], [place] [address]Zqxssjvlpv (Bld) [Mass/Vol]13.6 g/dL Uoxaky09.0-17.0UnUniversity Hospitals [facility] Medical CenterComment on above:Performed By: #### [id number] ####[facility] ([facility])[address] [place] [address] Immature granulocytes (Bld) [#/Vol]0.04 10*3/uLNormal0.00-0.20UnUniversity [facility] Medical CenterComment on above:Performed By: #### [id number] ####[facility] ([facility])[address] [facility] [place], [place] [address]Lzkwpqnd granulocytes/100 WBC (Bld)0.7 %Normal0.0-1.0UnUniversity [facility]als [facility] Medical CenterComment on above: Performed By: #### [id number] ####[facility] ([facility])[address] [place], [place] [address]Obwgtcrunnc (Bld) [#/Vol]0.06 10*3/uLLow1.20-4.00UnUniversity [facility]als [facility] Medical CenterComment on above:Performed By: #### [id number] ####[facility] ([facility])[address] [facility] [place], [place] [address]Zoxsqsbyqyu/100 WBC (Bld) 1.0 %Low20.0-45.0UnUniversity Hospitals Beachwood Medical CenterComment on above:Performed By: #### [id number] ####[facility] ([facility])[address], [place] [address]JJL (RBC) [Entitic mass]30.0 tvNsevkt08.0-33.0UnUniversity Hospitals Beachwood Medical CenterComment on above:Performed By: #### [id number] ####[facility] ([facility])[address] [facility], [place] [address]LHZ (RBC) [Entitic vol]90.5 fLNormal 82.0-98.0UnUniversity Hospitals Beachwood Medical CenterComment on above:Performed By: #### [id number] ####[facility] ([facility])[address] [place] [address] Monocytes (Bld) [#/Vol]0.22 10*3/uLNormal0.10-1.00UnUniversity Hospitals Beachwood Medical CenterComment on above:Performed By: #### [id number] ####[facility] ([facility])[address] [place] [address]Perqflvvy/100 WBC (Bld)3.8 %Low 5.0-12.0UnUniversity Hospitals Beachwood Medical CenterComment on above:Performed By: #### [id number] ####[facility] ([facility])[address] [place] [address] Neutrophils (Bld) [#/Vol]5.51 10*3/uLNormal1.60-7.60UnUniversity Hospitals Beachwood Medical CenterComment on above:Performed By: #### [id number] ####[facility] ([facility])[address], [place] [address]Dtjucvmyuad/100 WBC (Bld)94.2 %High 40.0-72.0UnUniversity Hospitals Beachwood Medical CenterComment on above:Performed By: #### [id number] ####[facility] ([facility])[address] [place] [address]GNHR (PER 100 WBCS) BY AUTOMATED COUNT0.0 %Wvghez1JqwjvqvbgnUniversity Hospitals Beachwood Medical Center Comment on above:Performed By: #### [id number] ####[facility] ([facility])[address] [address]IXBQPOYGM (10*3/UL) IN BLOOD AUTOMATED VIOUQ978 10*3/tRXrgnyd839-516SdoxgtmcvkUniversity Hospitals Beachwood Medical CenterComment on above: Performed By: #### [id number] ####[facility] ([facility])[address], [place] [address]LFZ (Bld) [#/Vol]4.54 10*6/uLNormal4.20-5.70UnUniversity Hospitals Beachwood Medical CenterComment on above:Performed By: #### [id number] ####[facility] ([facility])[address], [place] [address]OTD (Bld) [#/Vol]5.85 10*3/uLNormal4.00-10.60UnUniversity Hospitals Beachwood Medical CenterComment on above: Performed By: #### [id number] ####[facility] ([facility])[address] [place], [place] [address]XMSSMLWSSQPSS METABOLIC PANELon 79-00-6380Fdrvagj [Mass/Vol] 3.9 g/dLNormal3.5-5.7UnUniversity Hospitals Beachwood Medical CenterComment on above: Performed By: #### [id number] ####[facility] ([facility])[address] [place], [place] [address]EXH [Catalytic activity/Vol]106 U/YOata18-505VkoqnnqppvUniversity Hospitals Beachwood Medical CenterComment on above:Performed By: #### [id number] ####[facility] ([facility])[address], [place] [address]FLX [Catalytic activity/Vol]22 U/L Normal7-52UnUniversity Hospitals Beachwood Medical CenterComment on above:Performed By: #### [id number] ####[facility] ([facility])[address] [place], [place] [address]Knelf gap [Moles/Vol]16 mmol/LNormal7-20UnUniversity Hospitals Beachwood Medical CenterComment on above:Performed By: #### [id number] ####[facility] ([facility])[address] [place], [place] [address]LLY [Catalytic activity/Vol]14 U/PDqpwkk58-33AgvezwuytxUniversity Hospitals Beachwood Medical CenterComment on above:Performed By: #### [id number] ####[facility] ([facility])[address] [place], [place] [address]Oopeyoaxy [Mass/Vol]0.4 mg/dL Normal0.3-1.0UnUniversity Hospitals Beachwood Medical CenterComment on above:Performed By: #### [id number] ####[facility] ([facility])[address] [place] [address] Calcium [Mass/Vol]9.4 mg/dLNormal8.6-10.3UnUniversity Hospitals Beachwood Medical Center Comment on above:Performed By: #### [id number] ####[facility] ([facility])[address], [place] [address]Yvbwebbd [Moles/Vol]101 mmol/TNgkcre55-490 [facility] Parma Medical CenterComment on above:Performed By: #### [id number] ####[facility] ([facility])[address] [place], [place] [address]PQ9 [Moles/Vol] 27 mmol/JMpvpgu47-93SbqssprnquUniversity Hospitals Beachwood Medical CenterComment on above: Performed By: #### [id number] ####[facility] ([facility])[address] [place], [place] [address]Ptmfbmforw [Mass/Vol]10.61 mg/dLHigh0.70-1.30UnUniversity Hospitals Beachwood Medical CenterComment on above:Performed By: #### [id number] ####[facility] ([facility])[address] [place], [place] [address]XJRVSKEBEH FILTRATION RATE ML/MIN/1.73 SQ M.PREDICTED5.5 mL/min/1.73m*2Low>60.0UnUniversity Hospitals Beachwood Medical Center Comment on above:Result Comment: The [facility]???s estimated glomerular filtration rate (eGFR) will no longer include consideration of race in its calculation. The National Kidney Foundation???s eGFR Task Force developed new recommendations for the estimation of the glomerular filtration ra te in the [place] They recommend immediate implementation of the new equation refit without the race variable in all laboratories because the calculation does not include race. In addition to not including race in the calculation and reporting, it included diversity in its development, and has acceptable performance characteristics and potential consequences that do not disproportionately affect anyone group of individuals.Performed By: #### [id number] ####[facility] ([facility])[address] [place], [place] [address]Sltgjxt [Mass/Vol]86 mg/uCIskbkn31-808OnrkgruaeoUniversity Hospitals Beachwood Medical CenterComment on above:Performed By: #### [id number] ####[facility] ([facility])[address] [place], [place] [address]Xdhuiajuz [Moles/Vol]3.6 mmol/LNormal3.5-5.1UnUniversity Hospitals Beachwood Medical CenterComment on above:Performed By: #### [id number] ####[facility] ([facility])[address] [place] [address]Ufcneyr [Mass/Vol]6.3 g/dLNormal 6.0-8.3UnUniversity Hospitals Beachwood Medical CenterComment on above:Performed By: #### [id number] ####[facility] ([facility])[address] [place] [address]Saipvp [Moles/Vol]140 mmol/WKuggfp860-129InvdunypjzUniversity Hospitals Beachwood Medical CenterComment on above:Performed By: #### [id number] ####[facility] ([facility])[address] [place] [address]Chfe nitrogen [Mass/Vol]98 mg/dLHigh7-25UnUniversity Hospitals Beachwood Medical CenterComment on above:Performed By: #### [id number] ####[facility] ([facility])[address] [place] [address]AJXE NITROGEN/CREATININE (MASS RATIO) IN SER/PLAS9.2NormalUnUniversity Hospitals Beachwood Medical CenterComment on above: Performed By: #### [id number] ####[facility] ([facility])[address] [place] [address]IIGBYIQOMU, URINE, RANDOMon 62-03-3130Gtlzlctrjh (U) [Mass/Vol]50.0 mg/uXXpinhj49-375BthncnewdeUniversity Hospitals Beachwood Medical CenterComment on above:Performed By: #### [id number] ####[facility] ([facility])[address] [place] [address] Labon 09-27-5926DbmWtaitlEcctxcukaf of [place] Medical CenterMAGNESIUMon 32-80-8070Bodjlwqvj [Mass/Vol]2.4 mg/dLNormal1.9-2.7UnUniversity Hospitals Beachwood Medical CenterComment on above:Performed By: #### [id number] ####[facility] ([facility])[address] [place] [address]HRUQKAXLOKqy 04-81-6800Unykwivfi [Mass/Vol]7.6 mg/dLHigh2.5-5.0University [facility] Parma Medical CenterComment on above:Performed By: #### [id number] ####[facility] ([facility])[address] [place], [place] [address]GGKXEDT, URINE, RANDOMon 75-51-1995Ylrcguw (U) [Mass/Vol]68.5 mg/dLNoalUniSt. Vincent HospitalComment on above:Result Comment: There are no established reference values for random urine specimens.Performed By: #### [id number] ####[facility] ([facility])[address] [place] [address] SINGLE ANTIGEN CLASS Ion [id number] SCREEN COMMENTSNo Class I donor specific antibody identifiedNoalUAvita Health System Bucyrus HospitalComment on above: Performed By: #### [id number] ####[facility] TISSUE TYPING (HISTOTRAC)[address] [place] [address] USACLASS I TESTED [id number] of [place] Medical CenterComment on above:Performed By: #### [id number] ####[facility] TISSUE TYPING (HISTOTRAC)[address] [place] [address] USASIGNED BYSigned by Terrance Figueroa CHT([facility]) MT[facility] Upper Cutter Transplant ImmunologyNoRegency Hospital Cleveland EastComment on above:Result Comment: Class I Antigen MicrobeadsPerformed By: #### [id number] ####[facility] TISSUE TYPING (HISTOTRAC)[address] [place] [address] USAPerformed By: #### [id number] ####[facility] TISSUE TYPING (HISTOTRAC)[address] [place] [address] USASINGLE ANTIGEN CLASS 1 TEST METHODClass I Single AntigenNoRegency Hospital Cleveland East Comment on above:Performed By: #### [id number] ####[facility] TISSUE TYPING (HISTOTRAC)[address] [place] [address] USASINGLE ANTIGEN CLASS IIon [id number] SCREEN COMMENTSNo Class II donor specific antibody identifiedNormal [facility] Parma Medical CenterComment on above:Performed By: #### [id number] ####[facility] TISSUE TYPING (HISTOTRAC)[address] [place] [address] USACLASS II TESTED [id number] of [place] Medical CenterComment on above:Performed By: #### [id number] ####[facility] TISSUE TYPING (HISTOTRAC)[address] [place] [address] USASINGLE ANTIGEN CLASS 2 TEST METHODClass II Single AntigenNormalUAvita Health System Bucyrus HospitalComment on above:Result Comment: Class II Antigen MicrobeadsPerformed By: #### [id number] ####[facility] TISSUE TYPING (HISTOTRAC)[address] [place] [address] USATACROLIMUS LEVELon 12-80-2761Olujzrafkt (Bld) [Mass/Vol]4.1 ng/mLLow5.0-20.0UnUniversity Hospitals Beachwood Medical CenterCombeaumont hospital on above:Result Comment: The [employer] Tacrolimus assay is a delayed one-step immunoassay for the quantitative determination of tacrolimus in human whole blood using the chemiluminescent microparticle i mmunoassay (CMIA) technology with flexible assay protocols, referred to as Chemiflex.Performed By: #### [id number] ####[facility] ([facility])[address] [place], [place] [address]SCVM ACIDon 95-49-4820Bsacuoobn [Mass/Vol]8.4 mg/dLHigh 4.4-7.6UnUniversity Hospitals Beachwood Medical CenterComment on above:Performed By: #### [id number] ####[facility] ([facility])[address] [place], [place] [address]kw 61-46-878383Fkwl refills of all transplant medications, including prednisone, to [facility] on behalf of Dr. Serrano. Zack Lezama, PharmD, BCPS Solid Organ Transplant Clinical PharmacistNormalUniSt. Vincent HospitalBILIRUBIN, DIRECTon 75-43-4337Lzhaihunn [Mass/Vol]0.1 mg/dLNormal0-0.2 [facility] CenterComment on above:Performed By: #### [id number] ####[facility] ([facility])[address] [place] [address]VEW WITH AUTO DIFFERENTIALon 28-82-9353Jeozefkbi (Bld) [#/Vol]0.00 10*3/uLNormal0.00-0.20 [facility] Medical CenterComment on above:Performed By: #### [id number] ####[facility] ([facility])[address] [place] [address]Sorepgqxd/100 WBC (Bld)0.0 %Normal0.0-1.0UnUniversity Hospitals Beachwood Medical CenterComment on above: Performed By: #### [id number] ####[facility] ([facility])[address] [facility] MEDICAL [place]ERKleber[place], [place] [address]Ycvicpihhyv (Bld) [#/Vol]0.00 10*3/uLNormal0.00-0.50 [facility] CenterComment on above:Performed By: #### [id number] ####[facility] ([facility])[address] [place] [address]Qjvorrwnogw/100 WBC (Bld)0.0 %Normal0.0-6.0UnUniversity Hospitals Beachwood Medical CenterComment on above: Performed By: #### [id number] ####[facility] ([facility])[address] [facility] [place], [place] [address]Xihvbvphyys distribution width (RBC) [Ratio]14.3 %Normal 11.5-15.0UnUniversity Hospitals Beachwood Medical CenterComment on above:Performed By: #### [id number] ####[facility] ([facility])[address] [address] ERYTHROCYTE MEAN CORPUSCULAR HEMOGLOBIN CONCENTRATION (G/DL) BY BCELHJYUB60.8 g/vNGqcjti96.0-35.0UnUniversity Hospitals Beachwood Medical CenterComment on above:Performed By: #### [id number] ####[facility] ([facility])[address] [place] [address]Vahmtpjifp (Bld) [Volume fraction]41.2 %Wuynjv75.0-55.0UnUniversity Hospitals Beachwood Medical CenterComment on above:Performed By: #### [id number] ####[facility] ([facility])[address] [place] [address]Knxghomltf (Bld) [Mass/Vol]13.5 g/dL Gfucwc28.0-17.0UnUniversity Hospitals Beachwood Medical CenterComment on above:Performed By: #### [id number] ####[facility] ([facility])[address] [place] [address] Immature granulocytes (Bld) [#/Vol]0.02 10*3/uLNormal0.00-0.20UnUniversity Hospitals Beachwood Medical CenterComment on above:Performed By: #### [id number] ####[facility] ([facility])[address] [place] [address]Paiazhds granulocytes/100 WBC (Bld)0.3 %Normal0.0-1.0UnUniversity Hospitals Beachwood Medical CenterComment on above: Performed By: #### [id number] ####[facility] ([facility])[address] [place] [address]Kppbiefxwom (Bld) [#/Vol]0.02 10*3/uLLow1.20-4.00UnUniversity Hospitals Beachwood Medical CenterComment on above:Performed By: #### [id number] ####[facility] ([facility])[address] [place], [place] [address]Crcewwueuoq/100 WBC (Bld) 0.3 %Low20.0-45.0UnUniversity Hospitals Beachwood Medical CenterComment on above:Performed By: #### [id number] ####[facility] ([facility])[address] [place] [address]SCB (RBC) [Entitic mass]30.1 mdRhddju70.0-33.0UnUniversity Hospitals Beachwood Medical CenterComment on above:Performed By: #### [id number] ####[facility] ([facility])[address] [place] [address]IKW (RBC) [Entitic vol]91.8 fLNormal 82.0-98.0UnUniversity Hospitals Beachwood Medical CenterComment on above:Performed By: #### [id number] ####[facility] ([facility])[address] [place] [address] Monocytes (Bld) [#/Vol]0.34 10*3/uLNormal0.10-1.00UnUniversity Hospitals Beachwood Medical CenterComment on above:Performed By: #### [id number] ####[facility] ([facility])[address] [place] [address]Floxutvvy/100 WBC (Bld)5.2 %Normal 5.0-12.0UnUniversity Hospitals Beachwood Medical CenterComment on above:Performed By: #### [id number] ####[facility] ([facility])[address] [place] [address] Neutrophils (Bld) [#/Vol]6.12 10*3/uLNormal1.60-7.60UnUniversity Hospitals Beachwood Medical CenterComment on above:Performed By: #### [id number] ####[facility] ([facility])[address] [place] [address]Ogkfpltkpet/100 WBC (Bld)94.2 %High 40.0-72.0UnUniversity Hospitals Beachwood Medical CenterComment on above:Performed By: #### [id number] ####[facility] ([facility])[address] [place] [address]KWTE (PER 100 WBCS) BY AUTOMATED COUNT0.0 %Xqmcfi0EzdemqtmsfUniversity Hospitals Beachwood Medical Center Comment on above:Performed By: #### [id number] ####[facility] ([facility])[address] [facility]AGE[facility] CENTERKleber [place] [address]GTHYUOQLE (10*3/UL) IN BLOOD AUTOMATED PLRSP790 10*3/jREhx536-901AkvgakkthjUniversity Hospitals Beachwood Medical CenterComment on above:Performed By: #### [id number] ####[facility] ([facility])[address] [place] [address]DSY (Bld) [#/Vol]4.49 10*6/uLNormal4.20-5.70UnUniversity Hospitals Beachwood Medical CenterComment on above:Performed By: #### [id number] ####[facility] ([facility])[address] [place] [address]ZKP (Bld) [#/Vol]6.50 10*3/uLNormal 4.00-10.60UnUniversity Hospitals Beachwood Medical CenterComment on above:Performed By: #### [id number] ####[facility] ([facility])[address] [place] [address] COMPREHENSIVE METABOLIC PANELon 39-57-7696Lewbfpn [Mass/Vol]3.9 g/dLNormal 3.5-5.7UnUniversity Hospitals Beachwood Medical CenterComment on above:Performed By: #### [id number] ####[facility] ([facility])[address] [place] [address]BTR [Catalytic activity/Vol]77 U/JWgiyev54-775LmjeiiqxaaUniversity Hospitals Beachwood Medical Center Comment on above:Performed By: #### [id number] ####[facility] ([facility])[address] [place] [address]SOP [Catalytic activity/Vol]30 U/LNormal7-52 [facility] CenterComment on above:Performed By: #### [id number] ####[facility] ([facility])[address] [place] [address]Zpfft gap [Moles/Vol]16 mmol/LNormal7-20UnUniversity Hospitals Beachwood Medical CenterComment on above:Performed By: #### [id number] ####[facility] ([facility])[address] [place], [place] [address]BST [Catalytic activity/Vol]15 U/SZibsvk13-38TljyoaiydbUniversity Hospitals Beachwood Medical CenterComment on above:Performed By: #### [id number] ####[facility] ([facility])[address] [place] [address]Egcydzhqh [Mass/Vol]0.5 mg/dL Normal0.3-1.0UnUniversity Hospitals Beachwood Medical CenterComment on above:Performed By: #### [id number] ####[facility] ([facility])[address] [place] [address] Calcium [Mass/Vol]9.4 mg/dLNormal8.6-10.3UnUniversity [facility]als [facility] Center Comment on above:Performed By: #### [id number] ####[facility] ([facility])[address] [place] [address]Ktycsoxm [Moles/Vol]99 mmol/YGfehwo16-862AeyctmllatUniversity Hospitals Beachwood Medical CenterComment on above:Performed By: #### [id number] ####[facility] ([facility])[address] [place] [address]TI[address] [Moles/Vol]29 mmol/L Jlwzxt10-61ZejtphrtvtUniversity Hospitals Beachwood Medical CenterComment on above:Performed By: #### [id number] ####[facility] ([facility])[address] [place] [address] Creatinine [Mass/Vol]10.84 mg/dLHigh0.70-1.30Un[facility]als [facility] Comment on above:Performed By: #### [id number] ####[facility] ([facility])[address] [place], [place] [address]FARRCGRVPG FILTRATION RATE ML/MIN/1.73 SQ M.PREDICTED5.4 mL/min/1.73m*2Low>60.0UnUniversity Hospitals Beachwood Medical CenterComment on above:Result Comment: The [facility]???s estimated glomerular filtration rate (eGFR) will no [...] potential consequences that do not disproportionately affect anyone group of individuals.Performed By: #### [id number] ####[facility] ([facility])[address] [place], [place] [address]Nanqndu [Mass/Vol]86 mg/aPAxtljt50-156 [facility] CenterComment on above:Performed By: #### [id number] ####[facility] ([facility])[address] [place], [place] [address]Foyadnpep [Moles/Vol]4.0 mmol/LNormal3.5-5.1UnUniversity Hospitals Beachwood Medical CenterComment on above:Performed By: #### [id number] ####[facility] ([facility])[address] [place], [place] [address]Lvlvnrp [Mass/Vol]6.3 g/dLNormal6.0-8.3UnUniversity Hospitals Beachwood Medical CenterComment on above:Performed By: #### [id number] ####[facility] ([facility])[address] [place], [place] [address]Wotnhm [Moles/Vol]140 mmol/LNormal 136-145UnUniversity Hospitals Beachwood Medical CenterComment on above:Performed By: #### [id number] ####[facility] ([facility])[address] [place], [place] [address]Sfaj nitrogen [Mass/Vol]98 mg/dLHigh7-25UnUniversity Hospitals Beachwood Medical CenterComment on above:Performed By: #### [id number] ####[facility] ([facility])[address] [place], [place] [address]BZSF NITROGEN/CREATININE (MASS RATIO) IN SER/PLAS9.0Normal [facility] CenterComment on above:Performed By: #### [id number] ####[facility] ([facility])[address] [place], [place] [address]GGLCQQOEUS, URINE, RANDOMon 83-28-5054Jbltytkfku (U) [Mass/Vol]51.0 mg/pOTlatgj28-938 [facility] CenterComment on above:Performed By: #### [id number] ####[facility] ([facility])[address] [place], [place] [address]Twgbguyl Support on 58-68-6693Buvqekna SupportNormalUniversPremier Health Atrium Medical CenterFollow-Up on 27-43-3823Bbvkqe-UpNormalUniversPremier Health Atrium Medical CenterHEMOGLOBIN A1Con 25-75-0335Ooqzcei [Mass/Vol]108 mg/dLNormalUniSt. Vincent Hospital Comment on above:Performed By: #### [id number] ####[facility] ([facility])[address] [place] [address]BaB9x (Bld) [Mass fraction]5.4 %Normal4.0-6.0 [facility] CenterComment on above:Performed By: #### [id number] ####[facility] ([facility])[address] [place], [place] [address]SKSIZ PANELon 77-93-2208HEWO/HDL5.6 mg/dLNormalUniSt. Vincent HospitalComment on above:Performed By: #### [id number] ####[facility] ([facility])[address] [place], [place] [address]Qwphllefthe [Mass/Vol]203 mg/yYYblr473-898OfvbvpznjiUniversity Hospitals Beachwood Medical CenterComment on above:Performed By: #### [id number] ####[facility] ([facility])[address] [place], [place] [address]Gkzscasxl [Mass/Vol]272 mg/dLHigh 40-149UnUniversity Hospitals Beachwood Medical CenterComment on above:Result Comment: TRIGLYCERIDE REFERENCE RANGE:20 YEARS AND OLDER CARDIOVASCULAR RISKLESS THAN 150 mg/dL LOW WEZH473 TO 199 mg/dL BORDERLINE VIPQ981 mg/dL AND GREATER HIGH RISK Performed By: #### [id number] ####[facility] ([facility])[address] [place], [place] [address]Necpqhmgm [Mass/Vol]113 mg/dLNormal0-160UnUniversity Hospitals Beachwood Medical CenterComment on above:Performed By: #### [id number] ####[facility] ([facility])[address] [place], [place] [address]Cewivesdj [Mass/Vol]36 mg/dLNormal 23-92UnUniversity Hospitals Beachwood Medical CenterComment on above:Performed By: #### [id number] ####[facility] ([facility])[address] [place] [address]JIV HDL CHOL. (LDL+VLDL)167NormalUniversPremier Health Atrium Medical CenterComment on above: Performed By: #### [id number] ####[facility] ([facility])[address] [place] [address]SMUVG VLDL-C54 mg/dLHigh0-40UnUniversity Hospitals Beachwood Medical CenterComment on above:Performed By: #### [id number] ####[facility] ([facility])[address] [place] [address]Alkve 44-57-5729YwhSzcmozSgbqkypepi of [facility] MAGNESIUMon 36-06-1917Ppuxetosc [Mass/Vol]2.6 mg/dLNormal1.9-2.7UnUniversity Hospitals Beachwood Medical CenterComment on above:Performed By: #### [id number] ####[facility] ([facility])[address] [facility]GE[facility] MEDICAL CENTERKleber[place], [place] [address]PMTOEWHGQFxl 05-09-2024 Magnesium [Mass/Vol]9.0 mg/dLHigh2.5-5.0UnUniversity [facility]als [facility] Comment on above:Performed By: #### [id number] ####[facility] ([facility])[address] [facility] [place], [place] [address]TSMVAUR, URINE, RANDOMon [id number] (U) [Mass/Vol]61.6 mg/dLNoalUniSt. Vincent HospitalComment on above: Result Comment: There are no established reference values for random urine specimens.Performed By: #### [id number] ####[facility] ([facility])[address] [place], [place] [address]AVRQKB ANTIGEN CLASS Ion [id number] SCREEN COMMENTSNo Class I donor specific antibody identifiedNormalUniSt. Vincent HospitalComment on above:Performed By: #### [id number] ####[facility] TISSUE TYPING (HISTOTRAC)[address] [place] [address] USACLASS I TESTED DATE [id number]. Vincent HospitalComment on above: Performed By: #### [id number] ####[facility] TISSUE TYPING (HISTOTRAC)[address] [place], [place] [address]AL[facility] REGIONAL HOSPITALSINGLE ANTIGEN CLASS 1 TEST METHODClass I Single Antigen NormalUnUniversity Hospitals Beachwood Medical CenterComment on above:Performed By: #### [id number] ####[facility] TISSUE TYPING (HISTOTRAC)[address] SINGLE ANTIGEN CLASS IIon 09-57-7496BT SCREEN COMMENTSNo Class II donor specific antibody identifiedNormalUAvita Health System Bucyrus HospitalComment on above: Performed By: #### [id number] ####[facility] TISSUE TYPING (HISTOTRAC)[address] [place], [place] [address] HOSPITALCLASS II TESTED [id number] Hospital Cleveland EastCombeaumont hospital on above:Performed By: #### [id number] ####[facility] TISSUE TYPING (HISTOTRAC)[address] [place] [address] USASIGNED BYSigned by Terrance Figueroa CHT([facility]) MT(ASCP), Upper Cutter Transplant ImmunologyNoRegency Hospital Cleveland EastComment on above:Performed By: #### [id number] ####[facility] TISSUE TYPING (HISTOTRAC)[address] [place] [address] USAResult Comment: Class I Antigen MicrobeadsPerformed By: #### [id number] ####[facility] TISSUE TYPING (HISTOTRAC)[address] [place], [place] [address] HOSPITALSINGLE ANTIGEN CLASS 2 TEST METHODClass II Single AntigenNoRegency Hospital Cleveland EastCombeaumont hospital on above:Result Comment: Class II Antigen MicrobeadsPerformed By: #### [id number] ####[facility] TISSUE TYPING (HISTOTRAC)[address] TACROLIMUS LEVELon 07-85-5701Pfppgurcml (Bld) [Mass/Vol]9.8 ng/mLNormal5.0-20.0 [facility] Medical CenterComment on above:Result Comment: The [employer] Tacrolimus assay is a delayed one-step immunoassay for the jose a titative determination of tacrolimus in human whole blood using the chemiluminescent microparticle immunoassay (CMIA) technology with flexible assay protocols, referred to as Chemiflex.Performed By: #### [id number] ####[facility] LAB (WENDIE)[address] [place], [place] [address]OHFDXPEOSKQP, FREE AND TOTAL, AND SHBGon 91-91-6594ADA HORMONE BINDING GLOBULIN (NMOL/L) IN SER/PLAS29 nmol/L Uqwokf13-38SnglkuisddUniversity Hospitals Beachwood Medical CenterComment on above:Performed By: #### [id number] ####[facility] [id number] [place], [place] [address]PKATRKXTTSAI (NG/DL) IN SER/JSEU773 ng/tLYifqbg308-500WjfyuxyecuUniversity Hospitals Beachwood Medical Center Comment on above:Performed By: #### [id number] ####[facility] [id number] [place], [place] [address]EWTLVZLCGVQF FREE (NG/ML) IN SER/KVTP495.5 pg/mLNormal 47.0-244.0UnUniversity Hospitals Beachwood Medical CenterComment on above:Result Comment: The concentration of free testosterone is derived from a mathematical expression based on the constant for the binding of testosterone to albumin and/or sex hormone binding globulin.Test Performed by [employer] [address] [place] [id number] - Released 05/09/2024 17:10Performed By: #### [id number] ####[facility] [id number] [place], [place] [address]MNVR ACIDon 00-46-5822Wrqtfyqoh [Mass/Vol]9.7 mg/dLHigh4.4-7.6UnUniversity Hospitals Beachwood Medical CenterComment on above:Performed By: #### [id number] ####[facility] ([place]ENDIE)[address] [place] [address]44tp 55-00-048211SmcfvfQdsqroxqat Protestant HospitalTelephoneon 57-73-8088DtecebrrfJbgrecQdwiauxbmr Protestant HospitalBASIC METABOLIC PANELon 52-16-3081Oksmj gap [Moles/Vol]23 mmol/L High7-20UnUniversity Hospitals Beachwood Medical CenterComment on above:Performed By: #### [id number] ####[facility] ([facility])[address] [place] [address]Lgfxpwn [Mass/Vol]9.3 mg/dLNormal8.6-10.3UnUniversity Hospitals Beachwood Medical CenterComment on above:Performed By: #### [id number] ####[facility] ([facility])[address] [place] [address]Jnwgmtki [Moles/Vol]98 mmol/RLxeuug83-359SfuxxgehjzUniversity Hospitals Beachwood Medical CenterComment on above:Performed By: #### [id number] ####[facility] ([facility])[address] [place] [address]XC5 [Moles/Vol]23 mmol/ZLtfmtd37-84 [facility] Medical CenterComment on above:Performed By: #### [id number] ####[facility] ([facility])[address] [place] [address]Junhirvrmy [Mass/Vol]11.76 mg/dLHigh0.70-1.30UnUniversity Hospitals Beachwood Medical CenterComment on above:Performed By: #### [id number] ####[facility] ([facility])[address] [place] [address]RDRBEBTEIZ FILTRATION RATE ML/MIN/1.73 SQ M.PREDICTED4.9 mL/min/1.73m*2Low>60.0UnUniversity Hospitals Beachwood Medical CenterComment on above:Result Comment: The [facility]???s estimated glomerular filtration rate (eGFR) will no [...] potential consequences that do not disproportionately affect anyone group of individuals.Performed By: #### [id number] ####[facility] ([facility])[address] [place], [place] [address]Ixuuqzs [Mass/Vol]97 mg/rXQlowcx90-692LxlynoawrpUniversity Hospitals Beachwood Medical CenterComment on above:Performed By: #### [id number] ####[facility] ([facility])[address] [place], [place] [address]Ukrvzcoen [Moles/Vol]3.9 mmol/LNormal3.5-5.1UnUniversity Hospitals Beachwood Medical CenterComment on above:Performed By: #### [id number] ####[facility] ([facility])[address] [place] [address] Sodium [Moles/Vol]140 mmol/HXahmyh380-592QivlynvwagUniversity Hospitals Beachwood Medical Center Comment on above:Performed By: #### [id number] ####[facility] ([facility])[address] [place], [place] [address]Luyr nitrogen [Mass/Vol]109 mg/dLHigh7-25UnUniversity Hospitals Beachwood Medical CenterComment on above:Performed By: #### [id number] ####[facility] ([facility])[address] [place], [place] [address]ZTBI NITROGEN/CREATININE (MASS RATIO) IN SER/PLAS9.3NormalUniversPremier Health Atrium Medical CenterComment on above:Performed By: #### [id number] ####[facility] ([facility])[address] [place], [place] [address]CZNre 87-65-8553Sugmwdqjtys distribution width (RBC) [Ratio] 14.9 %Rlvlhp98.5-15.0UnUniversity Hospitals Beachwood Medical CenterComment on above: Performed By: #### [id number] ####[facility] ([facility])[address] [place], [place] [address]BEZPKOGGVNK MEAN CORPUSCULAR HEMOGLOBIN CONCENTRATION (G/DL) BY TDQSACPEF91.2 g/hNSggeuk55.0-35.0UnUniversity Hospitals Beachwood Medical CenterComment on above:Performed By: #### [id number] ####[facility] ([facility])[address] [place], [place] [address]Lsyoodbylj (Bld) [Volume fraction]37.9 %Low39.0-55.0 [facility] Medical CenterComment on above:Performed By: #### [id number] ####[facility] ([place])[address] [place] [address]Mpbtngaxek (Bld) [Mass/Vol]12.6 g/dLLow13.0-17.0UnUniversity Hospitals Beachwood Medical CenterComment on above:Performed By: #### [id number] ####[facility] ([facility])[address] [place] [address]LNT (RBC) [Entitic mass]29.9 cxZdkddm33.0-33.0UnUniversity Hospitals Beachwood Medical CenterComment on above:Performed By: #### [id number] ####[facility] ([facility])[address] [place] [address]KNW (RBC) [Entitic vol] 90.0 pLTixeur86.0-98.0UnUniversity Hospitals Beachwood Medical CenterComment on above: Performed By: #### [id number] ####[facility] ([facility])[address] [place] [address]ZTSPWQQRL (10*3/UL) IN BLOOD AUTOMATED IYBQG935 10*3/uLLow 150-400UnUniversity Hospitals Beachwood Medical CenterComment on above:Performed By: #### [id number] ####[facility] ([facility])[address] [place] [address]WXK (Bld) [#/Vol]4.21 10*6/uLNormal4.20-5.70UnUniversity Hospitals Beachwood Medical CenterComment on above:Performed By: #### [id number] ####[facility] ([facility])[address] [place] [address]QUO (Bld) [#/Vol]11.50 10*3/uLHigh4.00-10.60UnUniversity Hospitals Beachwood Medical CenterComment on above:Performed By: #### [id number] ####[facility] ([place])[address] [place] [address]TVmx 28-87-5801GCAswnfg [facility] Medical CenterMAGNESIUMon 89-05-9950Leduuifnq [Mass/Vol]2.6 mg/dLNormal1.9-2.7UnUniversity Hospitals Beachwood Medical CenterComment on above:Performed By: #### [id number] ####[facility] ([facility])[address] [place] [address]PZBTGTWUUDly 82-73-7509Hbxoxtxaw [Mass/Vol]10.1 mg/dLHigh2.5-5.0UnUniversity Hospitals Beachwood Medical CenterComment on above:Performed By: #### [id number] ####[facility] ([facility])[address] [place] [address]KLXQDWPJYZ LEVELon 30-56-4224Yauxnvxxkm (Bld) [Mass/Vol]5.7 ng/mLNormal5.0-20.0UnUniversity Hospitals Beachwood Medical CenterComment on above:Order Comment: POD#2 @5am, just prior to the administration of Tacrolimus.Result Comment: POD#2 @5am, just prior to the administration of TaPerformed By: #### [id number] ####[facility] ([facility])[address] [place] [address]px 25-90-538[address]Duy patient is Moderately Stable - Low risk of patient condition declining or worsening The patient's goals for the shift include comfort The clinical goals for the shift include pain controlNormalUniversity of [facility] Health System McallenNhxmpw70FxoqlbTxoyevvwdm Protestant HospitalBASIC METABOLIC PANELon 20-71-3392Tliss gap [Moles/Vol]21 mmol/LHigh7-20UnUniversity Hospitals Beachwood Medical CenterComment on above:Performed By: #### [id number] ####[facility] ([facility])[address] [place] [address]Izacjgb [Mass/Vol]9.0 mg/dLNormal 8.6-10.3UnUniversity Hospitals Beachwood Medical CenterComment on above:Performed By: #### [id number] ####[facility] ([facility])[address] [place], [place] [address]Xascewfe [Moles/Vol]99 mmol/PCkbvka54-983XehfapdvtlUniversity Hospitals Beachwood Medical CenterComment on above:Performed By: #### [id number] ####[facility] ([facility])[address] [place] [address]XE2 [Moles/Vol]24 mmol/ZEemuqu56-43WdepdppejwUniversity Hospitals Beachwood Medical CenterComment on above:Performed By: #### LAB15 ####[facility] ([facility])[address] [place] [address]Mxjgewdebp [Mass/Vol]10.49 mg/dLHigh 0.70-1.30UnUniversity Hospitals Beachwood Medical CenterComment on above:Performed By: #### LAB15 ####[facility] ([facility])[address] [place] [address]XYPUTAFQCA FILTRATION RATE ML/MIN/1.73 SQ M.PREDICTED5.6 mL/min/1.73m*2Low>60.0UnUniversity Hospitals Beachwood Medical CenterComment on above:Result Comment: The [facility]???s estimated glomerular filtration rate (eGFR) will no [...] potential consequences that do not disproportionately affect anyone group of individuals. Performed By: #### [id number] ####[facility] ([facility])[address] [place] [address]Jblwwez [Mass/Vol]116 mg/bVTatz00-006CoxliikldaUniversity Hospitals Beachwood Medical CenterComment on above:Performed By: #### [id number] ####[facility] ([facility])[address] [place] [address]Plvronwwi [Moles/Vol]4.0 mmol/LNormal 3.5-5.1UnUniversity Hospitals Beachwood Medical CenterComment on above:Performed By: #### LAB15 ####[facility] ([place])[address] [place], [place] [address]Grwrxf [Moles/Vol]140 mmol/XPwwplu776-979QfykcbqokvUniversity Hospitals Beachwood Medical CenterComment on above:Performed By: #### [id number] ####[facility] ([facility])[address] [place], [place] [address]Pylt nitrogen [Mass/Vol]90 mg/dLHigh7-25UnUniversity Hospitals Beachwood Medical CenterComment on above:Performed By: #### [id number] ####[facility] ([facility])[address] [place], [place] [address]CHQE NITROGEN/CREATININE (MASS RATIO) IN SER/PLAS8.6NormalUniversPremier Health Atrium Medical CenterComment on above: Performed By: #### [id number] ####[facility] ([facility])[address] [place], [place] [address]IAXsm 66-76-3088Gnsxqsvhobe distribution width (RBC) [Ratio]14.9 % Lylrts10.5-15.0UnUniversity Hospitals Beachwood Medical CenterComment on above:Performed By: #### [id number] ####[facility] ([facility])[address] [place] [address] ERYTHROCYTE MEAN CORPUSCULAR HEMOGLOBIN CONCENTRATION (G/DL) BY JNWNYRWSZ32.3 g/oRGntope63.0-35.0UnUniversity Hospitals Beachwood Medical CenterComment on above:Performed By: #### [id number] ####[facility] ([facility])[address] [place], [place] [address]Dbgqdsfhrq (Bld) [Volume fraction]37.5 %Low39.0-55.0UnUniversity Hospitals Beachwood Medical CenterComment on above:Performed By: #### [id number] ####[facility] ([facility])[address] [place], [place] [address]Wizvmupodi (Bld) [Mass/Vol]12.5 g/dL Low13.0-17.0UnUniversity Hospitals Beachwood Medical CenterComment on above:Performed By: #### [id number] ####[facility] ([facility])[address] [place] [address]RRL (RBC) [Entitic mass]30.3 bjXhmfqw94.0-33.0UnUniversity Hospitals [facility] Center Comment on above:Performed By: #### [id number] ####[facility] ([facility])[address] [place] [address]SOD (RBC) [Entitic vol]90.8 kNOpqnix70.0-98.0 [facility] CenterComment on above:Performed By: #### [id number] ####[facility] ([facility])[address] [place] [address]PEDQTDMVK (10*3/UL) IN BLOOD AUTOMATED ARUYX333 10*3/lTMxp165-939DlmjeakxqjUniversity Hospitals Beachwood Medical CenterComment on above:Performed By: #### [id number] ####[facility] ([facility])[address] [place] [address]RUG (Bld) [#/Vol]4.13 10*6/uLLow 4.20-5.70UnUniversity Hospitals Beachwood Medical CenterComment on above:Performed By: #### [id number] ####[facility] ([facility])[address] [place] [address]OZG (Bld) [#/Vol]13.55 10*3/uLHigh4.00-10.60UnUniversity Hospitals Beachwood Medical CenterComment on above:Performed By: #### [id number] ####[facility] ([facility])[address] [place] [address]TLLXFGEURkv 08-37-9904Drelgohrx [Mass/Vol]2.4 mg/dLNormal 1.9-2.7UnUniversity Hospitals Beachwood Medical CenterComment on above:Performed By: #### [id number] ####[facility] ([facility])[address] [place] [address]AZNNGAFO on 32-31-4485FIJUTQRCTk Chris notified of patient having 2.53 second pause. Nurse into check on patient who is sleeping. Patient current blood pressure is 125/85 and heart rate 44. No new orders at this time.NormalUniversity Hospitals Parma Medical CenterNURSNOTE Call from [facility] and patient had a 2.53 second pause. Nurse into check on patient who is sleeping and current blood pressure is 125/85 and heart rate 44. Nurse will notify Dr Perez of 2.53 second pause.NormalUnUniversity Hospitals Beachwood Medical CenterPHOSPHORUSon 47-35-0287Dhaedinie [Mass/Vol]9.1 mg/dLHigh2.5-5.0UnUniversity Hospitals Beachwood Medical CenterComment on above:Performed By: #### [id number] ####[facility] ([facility])[address] [place], [place] [address]WDBURPNSQE LEVELon 05-06-2024 Tacrolimus (Bld) [Mass/Vol]5.8 ng/mLNormal5.0-20.0UnUniversity Hospitals Beachwood Medical CenterComment on above:Order Comment: POD#2 @5am, just prior to the administration of Tacrolimus.Result Comment: POD#2 @5am, just prior to the administration of TaPerformed By: #### [id number] ####[facility] ([facility])[address] [place], [place] [address]zc 30-49-426[address]Dpx patient is Moderately Stable - Low risk of patient condition declining or worsening The patient's goals for the shift include comfort The clinical goals for the shift include pain controlNormalUniversity of [facility] Health System McallenMzpruz28EaqxckRdeyqugmmq of [facility] McallenTiwyvo73SzweuxKlgangaanf of [facility] Mcallen36on 92-12-[address]OgslgoDvzqvyscyv of [facility] BASIC METABOLIC PANELon 27-74-6313Paupg gap [Moles/Vol]20 mmol/LNormal7-20 [facility] CenterComment on above:Performed By: #### LAB15 ####[facility] ([place])[address] [place], [place] [address]Krqcynr [Mass/Vol]9.1 mg/dLNormal8.6-10.3UnUniversity Hospitals Beachwood Medical CenterComment on above:Performed By: #### LAB15 ####[facility] ([facility])[address] [place] [address]Kgxsdntb [Moles/Vol]100 mmol/RQrzyie02-241YquwrixwlqUniversity Hospitals Beachwood Medical CenterComment on above:Performed By: #### LAB15 ####[facility] ([facility])[address] [place] [address]SQ0 [Moles/Vol]23 mmol/LNormal 21-31UnUniversity Hospitals Beachwood Medical CenterComment on above:Performed By: #### LAB15 ####[facility] ([facility])[address] [place] [address]Qmosmvazwy [Mass/Vol]9.76 mg/dLHigh0.70-1.30UnUniversity Hospitals Beachwood Medical CenterComment on above:Performed By: #### LAB15 ####[facility] ([facility])[address] [place] [address]SPXJHRVNUS FILTRATION RATE ML/MIN/1.73 SQ M.PREDICTED6.1 mL/min/1.73m*2Low>60.0UnUniversity Hospitals Beachwood Medical CenterComment on above:Result Comment: The [facility]???s estimated glomerular filtration rate (eGFR) will no [...] potential consequences that do not disproportionately affect anyone group of individuals.Performed By: #### LAB15 ####[facility] ([facility])[address] [place] [address]Dwwhonn [Mass/Vol]125 mg/xOJuvt31-897GfjyvpjwyfUniversity Hospitals Beachwood Medical CenterComment on above:Performed By: #### LAB15 ####[facility] ([facility])[address] [place] [address]Flslfkhsg [Moles/Vol]4.6 mmol/L Normal3.5-5.1UnUniversity Hospitals Beachwood Medical CenterComment on above:Performed By: #### LAB15 ####[facility] ([facility])[address] [place] [address] Sodium [Moles/Vol]138 mmol/GGwurty174-662BcuktntnsmUniversity Hospitals Beachwood Medical Center Comment on above:Performed By: #### LAB15 ####[facility] ([facility])[address] [place], [place] [address]Ciju nitrogen [Mass/Vol]70 mg/dLHigh7-25UnUniversity Hospitals Beachwood Medical CenterComment on above:Performed By: #### LAB15 ####[facility] ([facility])[address] [facility] [place], [place] [address]JLZZ NITROGEN/CREATININE (MASS RATIO) IN SER/PLAS7.2NormalUnUniversity Hospitals Beachwood Medical CenterComment on above:Performed By: #### LAB15 ####[facility] ([facility])[address] [place], [place] [address]ZJADI CULTUREon 91-24-1952Ulnwhpwl identified Cx Nom (Bld)No growth at 5 daysNormalUniSt. Vincent HospitalComment on above:Order Comment: From a different site than #1.Performed By: #### [id number] ####[facility] ([facility])[address] [place], [place] [address]Znheiiro identified Cx Nom (Bld)No growth at 5 daysNormalUniSt. Vincent HospitalComment on above:Performed By: #### [id number] ####[facility] ([facility])[address] [place], [place] [address]KGTmz 57-50-4058Rrmympxejtd distribution width (RBC) [Ratio] 14.7 %Tcwivi23.5-15.0UnUniversity Hospitals Beachwood Medical CenterComment on above: Performed By: #### [id number] ####[facility] ([facility])[address] [facility] [place], [place] [address]JZZAAZTFLXS MEAN CORPUSCULAR HEMOGLOBIN CONCENTRATION (G/DL) BY TRGIHZUWP68.1 g/qMJewedw74.0-35.0UnUniversity Hospitals Beachwood Medical CenterComment on above:Performed By: #### [id number] ####[facility] ([facility])[address] [place] [address]Twdjagiqrx (Bld) [Volume fraction]41.7 %Ishsxk87.0-55.0 [facility] CenterComment on above:Performed By: #### [id number] ####[facility] ([facility])[address] [place] [address]Pzgqvrcihq (Bld) [Mass/Vol]13.8 g/zHNxnubx88.0-17.0UnUniversity Hospitals Beachwood Medical CenterComment on above:Performed By: #### [id number] ####[facility] ([facility])[address] [place] [address]QIL (RBC) [Entitic mass]30.2 zpUsrtvh20.0-33.0UnUniversity Hospitals Beachwood Medical CenterComment on above:Performed By: #### [id number] ####[facility] ([facility])[address] [place] [address]NOI (RBC) [Entitic vol] 91.2 zCIdpfzc94.0-98.0UnUniversity Hospitals Beachwood Medical CenterComment on above: Performed By: #### [id number] ####[facility] ([facility])[address] [place] [address]LXIUULDKD (10*3/UL) IN BLOOD AUTOMATED UGGEX332 10*3/uLNormal 150-400UnUniversity Hospitals Beachwood Medical CenterComment on above:Performed By: #### [id number] ####[facility] ([facility])[address] [place] [address]OBE (Bld) [#/Vol]4.57 10*6/uLNormal4.20-5.70UnUniversity Hospitals Beachwood Medical CenterComment on above:Performed By: #### [id number] ####[facility] ([facility])[address] [place] [address]AFQ (Bld) [#/Vol]17.15 10*3/uLHigh4.00-10.60UnUniversity Hospitals Beachwood Medical CenterComment on above:Performed By: #### [id number] ####[facility] ([facility])[address] [place] [address]OBIISNAxg 05-05-2024 CONSULTNormalUniversPremier Health Atrium Medical CenterMAGNESIUMon 49-79-1896Prkllutmy [Mass/Vol]2.4 mg/dLNormal1.9-2.7UnUniversity Hospitals Beachwood Medical CenterComment on above:Performed By: #### [id number] ####[facility] ([facility])[address] MEDINAGEISING[facility] COMM[facility]ITY [place]ERK[place] [address]Jsnggo Onlyon 05-50-2352Sqnjjw OnlyNormalUniversPremier Health Atrium Medical CenterPHOSPHORUSon 16-90-6818Lfvirnkvj [Mass/Vol]7.7 mg/dLHigh2.5-5.0 [facility] CenterComment on above:Performed By: #### [id number] ####[facility] ([facility])[address] [place], [place] [address]YTPYESMLFZ LEVEL on 29-67-7265Pgpswgvshe (Bld) [Mass/Vol]ng/mLLow5.0-20.0UnUniversity Hospitals Beachwood Medical CenterComment on above:Order Comment: POD#2 @5am, just prior to the administration of Tacrolimus.Result Comment: POD#2 @5am, just prior to the administration of TaPerformed By: #### [id number] ####[facility] ([facility])[address] [place], [place] [address]Iwtsjnfxeco 66-00-8600BisurybzdIbulmkUllwvksnrz of [facility] Medical CenterURINE CULTURE, ROUTINEon 09-95-5683Dfkagcmt identified Cx Nom (U)No growth at 48 hoursNormalUniSt. Vincent HospitalComment on above:Performed By: #### [id number] ####[facility] ([facility])[address] [place], [place] [address]ITBFU METABOLIC PANELon [id number] gap [Moles/Vol]20 mmol/LNormal7-20UnUniversity Hospitals Beachwood Medical CenterComment on above:Performed By: #### [id number] ####[facility] ([facility])[address] [place] [address] Calcium [Mass/Vol]7.2 mg/dLLow8.6-10.3UnUniversity Hospitals Beachwood Medical CenterComment on above:Performed By: #### [id number] ####[facility] ([facility])[address] [place], [place] [address]Yvhbgkzo [Moles/Vol]99 mmol/DGszpxp52-519FgkouihnobUniversity Hospitals Beachwood Medical CenterComment on above:Performed By: #### [id number] ####[facility] ([facility])[address] [place], [place] [address]EP2 [Moles/Vol]25 mmol/RUwlemh28-27 [facility] Medical CenterComment on above:Performed By: #### [id number] ####[facility] ([facility])[address] [place], [place] [address]Tpzunoasjh [Mass/Vol]7.75 mg/dLHigh0.70-1.30UnUniversity Hospitals Beachwood Medical CenterComment on above:Performed By: #### [id number] ####[facility] ([facility])[address], [place] [address]WKMYGUFKEC FILTRATION RATE ML/MIN/1.73 SQ M.PREDICTED8.1 mL/min/1.73m*2Low>60.0UnUniversity Hospitals Beachwood Medical CenterComment on above:Result Comment: [facility]???s estimated glomerular filtration rate (eGFR) will no [...] potential consequences that do not disproportionately affect anyone group of individuals.Performed By: #### [id number] ####[facility] ([facility])[address], [place] [address]Quvqbbp [Mass/Vol]144 mg/aOWyxu62-946IszcpqyxhpUniversity Hospitals Beachwood Medical CenterComment on above:Performed By: #### [id number] ####[facility] ([facility])[address] [place], [place] [address]Jovnzahec [Moles/Vol]3.7 mmol/L Normal3.5-5.1UnUniversity Hospitals Beachwood Medical CenterComment on above:Performed By: #### [id number] ####[facility] ([facility])[address] [place] [address] Sodium [Moles/Vol]140 mmol/FGevawz521-941NmyfseutefUniversity Hospitals Beachwood Medical Center Comment on above:Performed By: #### [id number] ####[facility] ([facility])[address] [place], [place] [address]Yodb nitrogen [Mass/Vol]59 mg/dLHigh7-25UnUniversity Hospitals Beachwood Medical CenterComment on above:Performed By: #### [id number] ####[facility] ([facility])[address] [place], [place] [address]RPAL NITROGEN/CREATININE (MASS RATIO) IN SER/PLAS7.6NormalUniversPremier Health Atrium Medical CenterComment on above:Performed By: #### [id number] ####[facility] ([facility])[address] [place], [place] [address]Ujpun gap [Moles/Vol]17 mmol/LNormal7-20UnUniversity Hospitals Beachwood Medical CenterComment on above:Performed By: #### [id number] ####[facility] ([facility])[address] [place], [place] [address]Wcisyrn [Mass/Vol]8.9 mg/dLNormal 8.6-10.3UnUniversity Hospitals Beachwood Medical CenterComment on above:Performed By: #### [id number] ####[facility] ([facility])[address] [place], [place] [address]Bchsfcrs [Moles/Vol]103 mmol/USlszjf26-756MgmifhhbgmUniversity Hospitals Beachwood Medical CenterComment on above:Performed By: #### [id number] ####[facility] ([facility])[address] [place], [place] [address]WS8 [Moles/Vol]24 mmol/PWbpylp30-54ZudlszfktoUniversity Hospitals Beachwood Medical CenterComment on above:Performed By: #### [id number] ####[facility] ([facility])[address] [place] [address]Drlyqusnqb [Mass/Vol]8.08 mg/dLHigh 0.70-1.30UnUniversity Hospitals Beachwood Medical CenterComment on above:Performed By: #### [id number] ####[facility] ([facility])[address] [place] [address]VBNPTABFIN FILTRATION RATE ML/MIN/1.73 SQ M.PREDICTED7.7 mL/min/1.73m*2Low>60.0UnUniversity Hospitals Beachwood Medical CenterComment on above:Result Comment: [facility]???s estimated glomerular filtration rate (eGFR) will no [...] potential consequences that do not disproportionately affect anyone group of individuals. Performed By: #### [id number] ####[facility] ([facility])[address] [place] [address]Apmzujf [Mass/Vol]115 mg/jWUlkp53-762YdwfargtetUniversity Hospitals Beachwood Medical CenterComment on above:Performed By: #### [id number] ####[facility] ([facility])[address] [place] [address]Vayzrspgm [Moles/Vol]4.4 mmol/LNormal 3.5-5.1UnUniversity Hospitals Beachwood Medical CenterComment on above:Performed By: #### [id number] ####[facility] ([facility])[address] [place] [address]Unjtwf [Moles/Vol]140 mmol/NZmgage602-745MqtksjcggfUniversity Hospitals Beachwood Medical CenterComment on above:Performed By: #### [id number] ####[facility] ([facility])[address] [place] [address]Jgek nitrogen [Mass/Vol]43 mg/dLHigh7-25UnUniversity Hospitals Beachwood Medical CenterComment on above:Performed By: #### [id number] ####[facility] ([facility])[address] [address]IBXH NITROGEN/CREATININE (MASS RATIO) IN SER/PLAS5.3NormalUniversPremier Health Atrium Medical CenterComment on above: Performed By: #### [id number] ####[facility] ([facility])[address] [address]VNNdt 86-54-5653Wayftepftnx distribution width (RBC) [Ratio]14.3 % Bkfkmp78.5-15.0University [facility] Medical CenterComment on above:Performed By: #### [id number] ####[facility] ([facility])[address] [place] [address] ERYTHROCYTE MEAN CORPUSCULAR HEMOGLOBIN CONCENTRATION (G/DL) BY XSMMBRNCX91.3 g/kMTfparz49.0-35.0UnUniversity Hospitals Beachwood Medical CenterComment on above:Performed By: #### [id number] ####[facility] ([facility])[address] [place] [address]Knwndmohsv (Bld) [Volume fraction]40.6 %Ujvcai04.0-55.0UnUniversity Hospitals Beachwood Medical CenterComment on above:Performed By: #### [id number] ####[facility] ([facility])[address] [place] [address]Pwkourllzy (Bld) [Mass/Vol]13.5 g/dL Bxozeh43.0-17.0UnUniversity Hospitals Beachwood Medical CenterComment on above:Performed By: #### [id number] ####[facility] ([facility])[address] [place] [address]VNH (RBC) [Entitic mass]30.2 jqFqoloo11.0-33.0UnUniversity Hospitals [facility] Medical Center Comment on above:Performed By: #### [id number] ####[facility] ([facility])[address] [place] [address]WKS (RBC) [Entitic vol]90.8 fWKbpcpd80.0-98.0 [facility] CenterComment on above:Performed By: #### [id number] ####[facility] ([facility])[address] [address]HQMWFOULE (10*3/UL) IN BLOOD AUTOMATED RMTMY434 10*3/iLFvvaef284-887RecnqecykwUniversity Hospitals Beachwood Medical CenterComment on above:Performed By: #### [id number] ####[facility] ([facility])[address] [place] [address]XMD (Bld) [#/Vol]4.47 10*6/uLNormal 4.20-5.70UnUniversity Hospitals Beachwood Medical CenterComment on above:Performed By: #### [id number] ####[facility] ([facility])[address] [address]ITE (Bld) [#/Vol]19.66 10*3/uLHigh4.00-10.60UnUniversity Hospitals Beachwood Medical CenterComment on above:Performed By: #### [id number] ####[facility] ([facility])[address] [address]OGXKCCAta 93-97-9338WWUTXGECkdtrvZtqcjqzhoo Protestant HospitalFERRITINon 98-09-5869QIAJGBEN (NG/ML) IN SER/PLAS32.0 ng/mLNormal 24.0-336.0UnUniversity Hospitals Beachwood Medical CenterComment on above:Performed By: #### [id number] ####[facility] ([facility])[address] [place] [address]LCFF AND TIBCon 82-20-6304QEYU (UG/DL) IN SER/PLAS27 ug/qGRpz69-540EjkwkkrkidUniversity Hospitals Beachwood Medical CenterComment on above:Performed By: #### [id number] ####[facility] ([facility])[address] [place] [address]XFIC BINDING CAPACITY (UG/DL) IN SER/NPCR152 ug/kOQgubxp705-370ZqjkxmkdybUniversity Hospitals Beachwood Medical CenterComment on above:Performed By: #### [id number] ####[facility] ([facility])[address] [place] [address]IFQV BINDING CAPACITY.UNSATURATED (UG/DL) IN SER/SLLQ818.0 ug/pOVftkat854.0-355.0UnUniversity Hospitals Beachwood Medical CenterComment on above: Performed By: #### [id number] ####[facility] ([facility])[address] [place] [address]DBDA SATURATION (%) IN SER/PLAS9 %Wfr52-86OkxalvkplhUniversity Hospitals Beachwood Medical CenterComment on above:Performed By: #### [id number] ####[facility] ([facility])[address] [place] [address]IUSCACBHZvg 05-04-2024 Magnesium [Mass/Vol]1.7 mg/dLLow1.9-2.7[facility] Comment on above:Performed By: #### [id number] ####[facility] ([facility])[address] [place], [place] [address]Rbjjrjxno [Mass/Vol]1.9 mg/dLNormal1.9-2.7 [facility] CenterComment on above:Performed By: #### [id number] ####[facility] ([facility])[address] [place], [place] [address]OXVPTYGQfi 85-68-9470CZTGZXKDVpjdxqSxnwlgmrfs of [place] Medical CenterNURSNOTETalked to Dr Sanchez to inform that pt c/o pain and pressure in abd and feels that he can not urinate. RN did give Levisin. Dr Sanchez informed to do bladder scan.NormalUnUniversity Hospitals Beachwood Medical CenterPHOSPHORUSon 27-21-1654Knwpfdexb [Mass/Vol]5.7 mg/dLHigh2.5-5.0UnUniversity Hospitals Beachwood Medical CenterComment on above:Performed By: #### [id number] ####[facility] ([facility])[address] [facility] [place], [place] [address]JKLQJULQ Ion 74-28-8409Jkogztgm I.cardiac [Mass/Vol]0.03 ng/mLNormal0.00-0.04UnUniversity Hospitals Beachwood Medical CenterComment on above: Performed By: #### [id number] ####[facility] ([facility])[address] [place] [address]82xc 26-64-074739FxokocUdwtbxkarg of [place] [facility] Gsfwgk83 on 48-64-750084FypiaeKggdgplxuk of [place] Medical CenterANESon 43-17-7120HGVN NormalUnUniversity Hospitals Beachwood Medical CenterANESNormalUniversPremier Health Atrium Medical CenterAPTTon 71-19-0705PMGLHUFQU PARTIAL THROMBOPLASTIN TIME IN PPP BY COAGULATION ASSAY28.8 QhomohvHotuhu76.0-35.0UnUniversity [facility] Center Comment on above:Result Comment: Clinical significance of the APTT is questionable in the presence of heparin.Performed By: #### [id number] ####[facility] ([facility])[address] [place], [place] [address]YSDHE METABOLIC PANELon 54-86-9210Mdxnk gap [Moles/Vol]12 mmol/LNormal7-20UnUniversity Hospitals Beachwood Medical CenterComment on above:Performed By: #### [id number] ####[facility] ([facility])[address] [place], [place] [address]Rfquxec [Mass/Vol]9.3 mg/dLNormal 8.6-10.3UnUniversity Hospitals Beachwood Medical CenterComment on above:Performed By: #### [id number] ####[facility] ([facility])[address] [place], [place] [address]Rezxntvg [Moles/Vol]104 mmol/HIupkxw47-623MnlaghmtoxUniversity Hospitals Beachwood Medical CenterComment on above:Performed By: #### [id number] ####[facility] ([facility])[address], [place] [address]DD9 [Moles/Vol]26 mmol/PHlpqgs68-86EnjiowvibaUniversity Hospitals Beachwood Medical CenterComment on above:Performed By: #### [id number] ####[facility] ([facility])[address] [place] [address]Jtimebyjmd [Mass/Vol]7.19 mg/dLHigh 0.70-1.30UnUniversity Hospitals Beachwood Medical CenterComment on above:Performed By: #### [id number] ####[facility] ([facility])[address] [address]TRCYLMLRTP FILTRATION RATE ML/MIN/1.73 SQ M.PREDICTED8.8 mL/min/1.73m*2Low>60.0UnUniversity Hospitals Beachwood Medical CenterComment on above:Result Comment: [facility]???s estimated glomerular filtration rate (eGFR) will no [...] potential consequences that do not disproportionately affect anyone group of individuals. Performed By: #### [id number] ####[facility] ([facility])[address] [place] [address]Bslirzv [Mass/Vol]88 mg/qTPuoknv25-068TtazodqbhjUniversity Hospitals Beachwood Medical CenterComment on above:Performed By: #### [id number] ####[facility] ([facility])[address] [place] [address]Szvgifabr [Moles/Vol]4.0 mmol/LNormal 3.5-5.1UnUniversity Hospitals Beachwood Medical CenterComment on above:Performed By: #### [id number] ####[facility] ([facility])[address] [place] [address]Onjjjb [Moles/Vol]138 mmol/XYrknnw814-596JrqjpqvclqUniversity Hospitals Beachwood Medical CenterComment on above:Performed By: #### [id number] ####[facility] ([facility])[address] [address]Ixzg nitrogen [Mass/Vol]33 mg/dLHigh7-25UnUniversity Hospitals Beachwood Medical CenterComment on above:Performed By: #### [id number] ####[facility] ([facility])[address] [place], [place] [address]DSIP NITROGEN/CREATININE (MASS RATIO) IN SER/PLAS4.6NormalUniversPremier Health Atrium Medical CenterComment on above: Performed By: #### [id number] ####[facility] ([facility])[address] [place], [place] [address]GQLqd 31-08-1783Ofrlieahxgi distribution width (RBC) [Ratio]14.3 % Nvbihi18.5-15.0UnUniversity Hospitals Beachwood Medical CenterComment on above:Performed By: #### [id number] ####[facility] ([facility])[address] [place] [address] ERYTHROCYTE MEAN CORPUSCULAR HEMOGLOBIN CONCENTRATION (G/DL) BY ERMFYWVCZ02.2 g/kFOufzfx15.0-35.0UnUniversity Hospitals Beachwood Medical CenterComment on above:Performed By: #### [id number] ####[facility] ([facility])[address] [place], [place] [address]Vpufqqamjs (Bld) [Volume fraction]42.6 %Cdbjnb94.0-55.0[facility] CenterComment on above:Performed By: #### [id number] ####[facility] ([facility])[address] [place], [place] [address]Drprmiwgum (Bld) [Mass/Vol]13.7 g/dL Isnhtr12.0-17.0UnUniversity Hospitals Beachwood Medical CenterComment on above:Performed By: #### [id number] ####[facility] ([facility])[address] [place], [place] [address]SFX (RBC) [Entitic mass]29.8 otBjjpkp19.0-33.0[facility] Comment on above:Performed By: #### [id number] ####[facility] ([facility])[address], [place] [address]ZBS (RBC) [Entitic vol]92.6 jGUnjrcg89.0-98.0 [facility] CenterComment on above:Performed By: #### [id number] ####[facility] ([facility])[address] [place] [address]AFSAOARDM (10*3/UL) IN BLOOD AUTOMATED FZJOY625 10*3/gTUdjshw893-773HtislwswkiUniversity Hospitals Beachwood Medical CenterComment on above:Performed By: #### [id number] ####[facility] ([facility])[address] [place] [address]KBJ (Bld) [#/Vol]4.60 10*6/uLNormal 4.20-5.70UnUniversity Hospitals Beachwood Medical CenterComment on above:Performed By: #### [id number] ####[facility] ([facility])[address] [place] [address]BMN (Bld) [#/Vol]5.60 10*3/uLNormal4.00-10.60UnUniversity Hospitals Beachwood Medical CenterComment on above:Performed By: #### [id number] ####[facility] ([facility])[address] [place] [address]MUH WITH AUTO DIFFERENTIALon 90-62-8404Olvfjgrfs (Bld) [#/Vol]0.04 10*3/uLNormal0.00-0.20UnUniversity Hospitals Beachwood Medical CenterComment on above:Performed By: #### [id number] ####[facility] ([facility])[address] [place], [place] [address]Hygphmlfi/100 WBC (Bld)0.7 %Normal0.0-1.0UnUniversity Hospitals Beachwood Medical CenterComment on above:Performed By: #### [id number] ####[facility] ([facility])[address] [address]Kbecsaeafkw (Bld) [#/Vol]0.19 10*3/uL Normal0.00-0.50UnUniversity Hospitals Beachwood Medical CenterComment on above:Performed By: #### [id number] ####[facility] ([facility])[address] [place] [address] Eosinophils/100 WBC (Bld)3.5 %Normal0.0-6.0Un[facility] Comment on above:Performed By: #### [id number] ####[facility] ([facility])[address] [place] [address]Ixdstrdpzln distribution width (RBC) [Ratio]14.1 % Ectoom80.5-15.0UnUniversity Hospitals Beachwood Medical CenterComment on above:Performed By: #### [id number] ####[facility] ([facility])[address] [place] [address] ERYTHROCYTE MEAN CORPUSCULAR HEMOGLOBIN CONCENTRATION (G/DL) BY FOMTRJHET71.9 g/aUPelszx77.0-35.0UnUniversity Hospitals Beachwood Medical CenterComment on above:Performed By: #### [id number] ####[facility] ([facility])[address] [facility] MEDICAL [place]ERK[place], [place] [address]Sbprdrfuuh (Bld) [Volume fraction]43.9 %Uevpba40.0-55.0UnUniversity Hospitals Beachwood Medical CenterComment on above:Performed By: #### [id number] ####[facility] ([facility])[address] [facility] MEDICAL [place]ERK[place]ber[place], [place] [address]Rnjmgkelgr (Bld) [Mass/Vol]14.9 g/dL Kxnkag45.0-17.0UnUniversity Hospitals Beachwood Medical CenterComment on above:Performed By: #### [id number] ####[facility] ([facility])[address] [place] [address] Immature granulocytes (Bld) [#/Vol]0.01 10*3/uLNormal0.00-0.20UnUniversity Hospitals Beachwood Medical CenterComment on above:Performed By: #### [id number] ####[facility] ([facility])[address] [place], [place] [address]Zrpwiuhm granulocytes/100 WBC (Bld)0.2 %Normal0.0-1.0UnUniversity Hospitals Beachwood Medical CenterComment on above: Performed By: #### [id number] ####[facility] ([facility])[address] [place] [address]Xtpfeqcroom (Bld) [#/Vol]1.12 10*3/uLLow1.20-4.00UnUniversity Hospitals Beachwood Medical CenterComment on above:Performed By: #### [id number] ####[facility] ([facility])[address] [place] [address]Oaqbasiytdx/100 WBC (Bld) 20.8 %Gfsedh03.0-45.0UnUniversity Hospitals Beachwood Medical CenterComment on above: Performed By: #### [id number] ####[facility] ([facility])[address] [place] [address]SXS (RBC) [Entitic mass]30.0 tnCpnhrb33.0-33.0UnUniversity Hospitals Beachwood Medical CenterComment on above:Performed By: #### [id number] ####[facility] ([facility])[address] [address]LJY (RBC) [Entitic vol] 88.3 yOAeihek49.0-98.0UnUniversity Hospitals Beachwood Medical CenterComment on above: Performed By: #### [id number] ####[facility] ([facility])[address] [place] [place] [address]Ethyrhdpz (Bld) [#/Vol]0.56 10*3/uLNormal0.10-1.00UnUniversity Hospitals Beachwood Medical CenterComment on above:Performed By: #### [id number] ####[facility] ([facility])[address] [place] [address]Olbgcjdzr/100 WBC (Bld) 10.4 %Normal5.0-12.0UnUniversity Hospitals Beachwood Medical CenterComment on above: Performed By: #### [id number] ####[facility] ([facility])[address] [place] [address]Zhmcbpkcddn (Bld) [#/Vol]3.47 10*3/uLNormal1.60-7.60 [facility] CenterComment on above:Performed By: #### [id number] ####[facility] ([facility])[address] [address]Qernekmqaiu/100 WBC (Bld)64.4 %Xwosdd78.0-72.0UnUniversity Hospitals Beachwood Medical CenterComment on above:Performed By: #### [id number] ####[facility] ([facility])[address] [address]QIRI (PER 100 WBCS) BY AUTOMATED COUNT0.0 %Ntqzbf0IvyppbknoyUniversity Hospitals Beachwood Medical CenterComment on above:Performed By: #### [id number] ####[facility] ([facility])[address] [address]SUZJPDBXX (10*3/UL) IN BLOOD AUTOMATED FYUSI446 10*3/vBEilmfs717-636FpiddnkqyhUniversity Hospitals Beachwood Medical Center Comment on above:Performed By: #### [id number] ####[facility] ([facility])[address] [address]KEW (Bld) [#/Vol]4.97 10*6/uLNormal4.20-5.70 [facility] CenterComment on above:Performed By: #### [id number] ####[facility] ([facility])[address] [address]GIJ (Bld) [#/Vol]5.39 10*3/uLNormal4.00-10.60UnUniversity Hospitals Beachwood Medical CenterComment on above:Performed By: #### [id number] ####[facility] ([facility])[address], [place] [address]JLGFKSBMHSKOQ METABOLIC PANELon 07-61-8847Jcpgcck [Mass/Vol] 4.4 g/dLNormal3.5-5.7UnUniversity Hospitals Beachwood Medical CenterComment on above: Performed By: #### [id number] ####[facility] ([facility])[address] [address]QSH [Catalytic activity/Vol]124 U/ISxha30-253IihoxezxroUniversity Hospitals Beachwood Medical CenterComment on above:Performed By: #### [id number] ####[facility] ([facility])[address] [place], [place] [address]VJV [Catalytic activity/Vol]11 U/L Normal7-52UnUniversity Hospitals Beachwood Medical CenterComment on above:Performed By: #### [id number] ####[facility] ([facility])[address] [place], [place] [address]Llase gap [Moles/Vol]14 mmol/LNormal7-20UnUniversity Hospitals [facility] Medical CenterComment on above:Performed By: #### [id number] ####[facility] ([facility])[address] [place], [place] [address]XKS [Catalytic activity/Vol]14 U/DSiyeut67-17DonncyokxiUniversity Hospitals Beachwood Medical CenterComment on above:Performed By: #### [id number] ####[facility] ([facility])[address] [place], [place] [address]Tdtfroofy [Mass/Vol]0.6 mg/dL Normal0.3-1.0UnUniversity Hospitals Beachwood Medical CenterComment on above:Performed By: #### [id number] ####[facility] ([facility])[address] [place] [address] Calcium [Mass/Vol]9.8 mg/dLNormal8.6-10.3Un[facility]als [facility] Center Comment on above:Performed By: #### [id number] ####[facility] ([facility])[address] [place], [place] [address]Xkkamsby [Moles/Vol]101 mmol/NOuxfxr63-489 [facility] CenterComment on above:Performed By: #### [id number] ####[facility] ([facility])[address] [place], [place] [address] [Moles/Vol] 28 mmol/HRvsyjv96-45VcdzcmidzyUniversity Hospitals Beachwood Medical CenterComment on above: Performed By: #### [id number] ####[facility] ([facility])[address], [place] [address]Gaezlzufpn [Mass/Vol]7.45 mg/dLHigh0.70-1.30UnUniversity Hospitals Beachwood Medical CenterComment on above:Performed By: #### [id number] ####[facility] ([facility])[address] [place] [place] [address]EPXCHOCSNL FILTRATION RATE ML/MIN/1.73 SQ M.PREDICTED8.4 mL/min/1.73m*2Low>60.0UnUniversity Hospitals Beachwood Medical Center Comment on above:Result Comment: [facility]???s estimated glomerular filtration rate (eGFR) will no longer include consideration of race in its calculation. The [employer]???s eGFR Task Force developed new recommendations for the estimation of the glomerular filtration ra te in the [place] They recommend immediate implementation of the new equation refit without the race variable in all laboratories because the calculation does not include race. In addition to not including race in the calculation and reporting, it included diversity in its development, and has acceptable performance characteristics and potential consequences that do not disproportionately affect anyone group of individuals.Performed By: #### [id number] ####[facility] ([facility])[address], [place] [address]Btopgaz [Mass/Vol]70 mg/fNVyedmv13-960XdfribjrfoUniversity Hospitals Beachwood Medical CenterComment on above:Performed By: #### [id number] ####[facility] ([facility])[address] [place] [place] [address]Alebjifwz [Moles/Vol]3.6 mmol/LNormal3.5-5.1UnUniversity Hospitals Beachwood Medical CenterComment on above:Performed By: #### [id number] ####[facility] ([facility])[address] [place], [place] [address]Qebfmwu [Mass/Vol]7.2 g/dLNormal 6.0-8.3UnUniversity Hospitals Beachwood Medical CenterComment on above:Performed By: #### [id number] ####[facility] ([facility])[address] [place], [place] [address]Quosnf [Moles/Vol]139 mmol/QLtnabz787-696GpdvrnhufzUniversity Hospitals Beachwood Medical CenterComment on above:Performed By: #### [id number] ####[facility] ([facility])[address] [place], [place] [address]Dquf nitrogen [Mass/Vol]30 mg/dLHigh7-25University Hospitals Parma Medical CenterComment on above:Performed By: #### [id number] ####[facility] ([facility])[address] [place] [address]RIYX NITROGEN/CREATININE (MASS RATIO) IN SER/PLAS4.0NoalUniSt. Vincent HospitalCombeaumont hospital on above: Performed By: #### [id number] ####[facility] ([facility])[address] [place], [place] [address]PKZ QUANTITATIVE TMAon 13-03-7903DSR QUANTITATIVE LOG IU/MLNPremier HealthComment on above:Order Comment: The Aptima HCV Quant Dx assay is a real-time hydraulic auto jack mechanic-mediated amplification (TMA) test which has a dynamic range of 10-100,000,000 IU/mL (1.0-8.0 log IU/mL). The Aptima HCV QuantDx assay is used for both detection and quantitation of hepatitis C virus (HCV) RNA in human serum and plasma from HCV-infected individuals.The results from the Aptima HCV Quant Dx assay must be interpreted within the context of all relevant clinical and laboratory findings. The Aptima HCV Quant Dxassay is not approved for use as a screening test for the presence of HCV RNA in blood or blood products.Result Comment: Not DetectedPerformed By: #### [id number] ####[facility] ([facility])[address] [place], [place] [address]WVH QUANTITATIVE TMANormalUniSt. Vincent HospitalComment on above:Order Comment: The Aptima HCV Quant Dx assay is a real-time hydraulic auto jack mechanic-mediated amplification (TMA) test which has a dynamic range of 10-100,000,000 IU/mL (1.0- 8.0 log IU/mL). The Aptima HCV QuantDx assay is used for both detection and quantitation of hepatitis C virus (HCV) RNA in human serum and plasma from HCV- infected individuals.The results from the Aptima HCV Quant Dx assay must be interpreted within the context of all relevant clinical and laboratory findings. The Aptima HCV Quant Dxassay is not approved for use as a screening test for the presence of HCV RNA in blood or blood products.Result Comment: Not Detected Performed By: #### [id number] ####[facility] ([facility])[address] [place], [place] [address]RKF TMA INTERPNot detectedNormalNot DetectedUniversity Hospitals Parma Medical CenterComment on above:Order Comment: The Aptima HCV Quant Dx assay is a real-time hydraulic auto jack mechanic-mediated amplification (TMA) test which has a dynamic range of 10-100,000,000 IU/mL (1.0-8.0 log IU/mL). The Aptima HCV Quant Dx assay is used for both detection and quantitation of hepatitis C virus (HCV) RNA in human serum and plasma from HCV-infected individuals.The results from the Aptima HCV Quant Dx assay must be interpreted within the context of all relevant clinical and laboratory findings. The Aptima HCV Quant Dxassay is not approved for use as a screening test for the presence of HCV RNA in blood or blood products.Performed By: #### [id number] ####[facility] ([facility])[address] [place] [address]CSBEZQYIJ B CORE ANTIBODY, TOTALon 05-03-2024 HEPATITIS B VIRUS CORE AB (PRESENCE) IN SER/PLAS BY IMMNon-ReactiveNormal NonreactiveUniversity Hospitals Parma Medical CenterComment on above:Performed By: #### [id number] ####[facility] ([facility])[address] [place] [address] HEPATITIS B SURFACE ANTIBODY QUANTon 18-13-7283RZQJTAGAY B VIRUS SURFACE AB (MIU/ML) IN SERUM3.48 mIU/mLNormalUniversity Hospitals Parma Medical CenterComment on above:Result Comment: INTERPRETATION: NONREACTIVE <8.00 mIU/mL INDETERMINATE 8.00 - 12.00 mIU/mL REACTIVE >12 mIU/mLPerformed By: #### [id number] ####[facility] ([facility])[address] [place], [place] [address]YOPRADXXR B SURFACE ANTIGENon 19-93-6507ZNTPBMIRV B VIRUS SURFACE AG PRESENCE IN SERUMNon-Reactive NormalNonreactiveUniversity Hospitals Parma Medical CenterComment on above:Performed By: #### [id number] ####[facility] ([facility])[address] [place] [address] HEPATITIS C ANTIBODYon 94-97-1687UHOPJCIQB C VIRUS AB PRESENCE IN SERUM Non-ReactiveNormalNonreactiveUnUniversity Hospitals Beachwood Medical CenterComment on above:Performed By: #### [id number] ####[facility] ([facility])[address] [place], [place] [address]WMW COMBO 4Gon 61-82-8220PCR COMBO 4GNegativeNormalNegative University Hospitals Parma Medical CenterComment on above:Performed By: #### [id number] ####[facility] ([facility])[address] [place], [place] [address]SEsl 05-03-2024 HPNormalUniversPremier Health Atrium Medical CenterHPThis report has been cancelled. NormalUnUniversity Hospitals Beachwood Medical CenterMAGNESIUMon 49-04-3182Cltmwpelf [Mass/Vol]2.1 mg/dLNormal1.9-2.7UnUniversity Hospitals Beachwood Medical CenterComment on above:Performed By: #### [id number] ####[facility] ([facility])[address] [place], [place] [address]FHRSFUACnu 52-62-4277MBSBFJDTGaqdjgDpjnnnqfet of [place] Medical CenterOPNOTEon 64-01-4822TCPZJFJqrerjBkjbvpiarp of [facility] Orders Onlyon 64-53-7380Kaizhp OnlyNormalUniversPremier Health Atrium Medical Center PHOSPHORUSon 49-58-2761Egwutyjbu [Mass/Vol]5.0 mg/dLNormal2.5-5.0UnUniversity Hospitals Beachwood Medical CenterComment on above:Performed By: #### [id number] ####[facility] ([facility])[address] [place], [place] [address]AGQC GLUCOSE METER UNSOLICITED RESULTSon 98-39-1392Hrbwaof [Mass/Vol]71 mg/tCJjzvun42-630VflkhgmykyUniversity Hospitals Beachwood Medical CenterComment on above:Order Comment: Waived Testing in the ED is performed under the ED CLIA certificate #[id number].Result Comment: ngrothaPerformed By: #### [id number] ####[facility] ([facility])[address] [place] [address]WXMQPFISXce 56-44-0848Heqtgemvr [Moles/Vol]3.5 mmol/LNormal 3.5-5.1UnUniversity Hospitals Beachwood Medical CenterComment on above:Performed By: #### [id number] ####[facility] ([facility])[address] [place] [address] PROTIME-INRon 87-52-8012GVF IN PPP BY COAGULATION ASSAY1.50Gdfkxp6.90-1.10 University Hospitals Parma Medical CenterComment on above:Result Comment: ACCCP RECOMMENDED INR FOR WARFARIN THERAPY CONDITION INRPROPHYLAXIS OF VENOUS THROMBOSIS 2-3(HIGH-RISK SURGERY)TREATMENT OF VENOUS THROMBOSIS 2-3TREATMENT OF PULMONARY EMBOLISM 2-3PREVENTION OF SYSTEMIC EMBOLISM: 2-3 ACUTE MYOCARDIAL INFARCTION TISSUE HEART VALVES VALVULAR HEART DISEASE ATRIAL FIBRILLATION RECURRENT SYSTEMIC EMBOLISMMECHANICAL HEART VALVE 2.5-3.5 FROM: ORAL ANTICOAGULANTS. MECHANISM OF ACTION, CLINICAL EFFECTIVENESS, AND OPTIMAL THERAPE UTIC RANGE. CHEST 1995;108:231S-246S.Performed By: #### [id number] ####[facility] ([facility])[address] [place] [address]ZFTIFSWALFU TIME (PT) IN PPP BY COAGULATION ASSAY13.2 EturxduYhgcfv27.3-14.8UnUniversity Hospitals Beachwood Medical CenterComment on above:Performed By: #### [id number] ####[facility] ([facility])[address] [place] [address]VPHN AND SCREENon 16-01-2582II SCREEN NegativeNormalUniversuc health of South Texas Health System McallenComment on above:Performed By: #### [id number] ####[facility] BLOOD BANK,ABO group Nom (Bld)ONMorrow County HospitalComment on above:Performed By: #### [id number] ####[facility] BLOOD BANK,RH TYPE IN BLOODPositiveNormalUniversPremier Health Atrium Medical CenterComment on above: Performed By: #### [id number] ####[facility] BLOOD BANK,URINE CULTURE, ROUTINEon 00-55-5996Vrewnkbi identified Cx Nom (U)No growth at 48 hoursNormalUniSt. Vincent HospitalComment on above:Order Comment: Pre-op diagnosis:ESRD Performed By: #### [id number] ####[facility] ([facility])[address] [facility] [place] [address]wj 56-18-769203Ujxvtpsj by: EMILY ROCKWELL on: 05/03/2024 02:00 PM Modules accepted: OrdersNormalUniversPremier Health Atrium Medical Center36on 04-28-2024 36Patient here to do monthly PRA and coordinator ordered PRA kits to be sent to patient home for future use. Sara Jarrell, RNNormalUniversPremier Health Atrium Medical CenterDECEASED DONOR CROSSMATCHon 04-28-2024 CELL CHANNEL GJXUR7XixkggLootdkzkdnAvita Health System Bucyrus HospitalComment on above:Performed By: #### [id number] ####[facility] TISSUE TYPING (HISTOTRAC)[address] [place] [address] USAB CELL CHANNEL SHIFT 20Normal University Hospitals Parma Medical CenterComment on above:Performed By: #### [id number] ####[facility] TISSUE TYPING (HISTOTRAC)[address] [facility] [place] [address] [place] CROSSMATCH OVERALL RESULTNegativeNoalUniSt. Vincent Hospital Comment on above:Performed By: #### [id number] ####[facility] TISSUE TYPING (HISTOTRAC)[address] [place] [address] USADDXMATCH TESTED DATE [id number] Hospital Cleveland EastComment on above: Performed By: #### [id number] ####[facility] TISSUE TYPING (HISTOTRAC)[address] [place] [address] USADONOR [id number] DONORNoRegency Hospital Cleveland EastComment on above:Performed By: #### [id number] ####[facility] TISSUE TYPING (HISTOTRAC)[address] [place] [address] USAHLA COMMENTSFinal Crossmatch retrospective to transplant. Patient met criteria for surgeon to waive a prospective final crossmatch.[facility] HospitalComment on above:Performed By: #### [id number] ####[facility] TISSUE TYPING (HISTOTRAC)[address] [place] [address] USASAMPLE [id number] County HospitalComment on above:Performed By: #### [id number] ####[facility] TISSUE TYPING (HISTOTRAC)[address] [place] [address] USASAMPLE NUMBER [id number] County HospitalComment on above:Performed By: #### [id number] ####[facility] TISSUE TYPING (HISTOTRAC)[address] [place] [address] USASERA DATE04/28/2024NoalUniSt. Vincent HospitalComment on above:Performed By: #### [id number] ####[facility] TISSUE TYPING (HISTOTRAC)[address] [place] [address] USASERA DATE NoalUniSt. Vincent HospitalComment on above:Performed By: #### [id number] ####[facility] TISSUE TYPING (HISTOTRAC)[address] [place] [address] USASIGNED BYSigned by Terrance Figueroa CHT([facility]) [place](ASCP), Upper Cutter Transplant ImmunologyNoRegency Hospital Cleveland EastComment on above:Performed By: #### [id number] ####[facility] TISSUE TYPING (HISTOTRAC)[address] [place] [address] USAPerformed By: #### [id number] ####[facility] TISSUE TYPING (HISTOTRAC)[address] [place] [address] [place] Result Comment: Class I Antigen MicrobeadsPerformed By: #### [id number] ####[facility] TISSUE TYPING (HISTOTRAC)[address] [place] [address] USAT CELL CHANNEL MRMQH8FkesrpXicalpvjkmRegency Hospital Cleveland EastComment on above:Performed By: #### [id number] ####[facility] TISSUE TYPING (HISTOTRAC)[address] [place] [address] USAT CELL CHANNEL SHIFT 20NoRegency Hospital Cleveland EastComment on above:Performed By: #### [id number] ####[facility] TISSUE TYPING (HISTOTRAC)[address] [place] [address] USATEST METHODFLOWAdams County HospitalComment on above:Performed By: #### [id number] ####[facility] TISSUE TYPING (HISTOTRAC)[address] [place] [address] USALabon 01-87-0559QahYgthmy University Hospitals Parma Medical CenterPANEL REACTIVE ANTIBODYon 68-60-8047ETKZ SPECIMENHold for add-ons.Ad[facility] County HospitalComment on above:Result Comment: Auto resulted.Performed By: #### [id number] ####[facility] TISSUE TYPING (HISTOTRAC)[address] [place] [address] USASINGLE ANTIGEN CLASS Ion 29-59-7367SRODH I SPECIFICITY ABB:48[facility] Comment on above:Performed By: #### [id number] ####[facility] TISSUE TYPING (HISTOTRAC)[address] [place] [address] USACLASS I TESTED DATE [id number] Hospital Cleveland EastComment on above:Result Comment: Corrected result: Previously reported as [id number] (reference range: ) on 05/02/2024 at 1638 EST.Performed By: #### [id number] ####[facility] TISSUE TYPING (HISTOTRAC)[address] [place] [address] USASINGLE ANTIGEN CLASS 1 TEST METHODClass I Single AntigenAdams County Hospital Comment on above:Performed By: #### [id number] ####[facility] TISSUE TYPING (HISTOTRAC)[address] [place] [address] USASINGLE ANTIGEN CLASS IIon 04-91-7955QX SCREEN COMMENTSNo Specificites FoundAdams County HospitalComment on above:Performed By: #### [id number] ####[facility] TISSUE TYPING (HISTOTRAC)[address] [place] [address] USACLASS II TESTED DATE [id number] County HospitalComment on above:Result Comment: Corrected result: Previously reported as [id number] (reference range: ) on 05/02/2024 at 1638 EST.Performed By: #### [id number] ####[facility] TISSUE TYPING (HISTOTRAC)[address] [place] [address] OCOUDMM7GwzurzFaymcuukodAdams County HospitalComment on above:Performed By: #### [id number] ####[facility] TISSUE TYPING (HISTOTRAC)[address] [facility] [address] USAPerformed By: #### [id number] ####[facility] TISSUE TYPING (HISTOTRAC)[address] [place] [address] USASINGLE ANTIGEN CLASS 2 TEST METHODClass II Single AntigenNormal [facility]ma Medical CenterComment on above:Result Comment: Class II Antigen MicrobeadsPerformed By: #### [id number] ####[facility] TISSUE TYPING (HISTOTRAC)[address] [address] JRI79ai 14-45-149570Pwyqqe [facility]als Parma Medical CenterMR IAC W AND WO IV CONTRASTon 04-01-2024 Interpreted By: Rayshawn Jolley, STUDY: MR IAC W AND WO IV CONTRAST; 03/31/2024 11:25 am INDICATION: Signs/Symptoms:right vocal cord paralysis, assymmetry at skull base on ct. 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 ACCESSION NUMBER(S): [id number] ORDERING CLINICIAN: JESSENIA BELLO TECHNIQUE: Standard multiplanar multisequence MR imaging was performed through the brain prior to and following administration of 19.5 ML Dotarem intravenous contrast. Additional dedicated pre and post-contrast MR imaging was performed through the internal auditory canals. FINDINGS: Parenchyma: There is no diffusion restriction abnormality to suggest acute infarct. No evidence of recent hemorrhage. There is no mass effect or midline shift. No abnormal parenchymal enhancement. No significant focal parenchymal signal abnormality. CSF Spaces: The ventricles, sulci and basal cisterns are within normal limits for age with minimal sulcal prominence. Basilar cisterns are patent. Extra-axial spaces: No extra-axial fluid collection. Intracranial Flow Voids: Patent appearing. There is asymmetry of the jugular bulbs appearing larger in caliber on the right with no additional abnormality evident. Paranasal Sinuses: Mucosal thickening and small amount of secretions within the left frontoethmoidal region. Otherwise mild diffuse mucosal thickening of the bilateral ethmoid air cells. Polypoid mucosal thickening of the inferior right maxillary paranasal sinus and mild mucosal thickening of the inferior left maxillary paranasal sinus. Mastoids: Trace fluid within the inferior mastoids bilaterally. Otherwise well aerated. IAC region: There is no focus of abnormal enhancement or mass effect in bilateral cerebellopontine angle cisterns. There is no focus of abnormal enhancement within bilateral internal auditory canals. Bilateral inner ear structures demonstrate expected signal and postcontrast appearance. Orbits: Normal. Calvarium: No suspicious osseous marrow signal. IMPRESSION: No acute infarct, recent hemorrhage, intracranial mass effect, or abnormal enhancement. Unremarkable MR appearance of the internal auditory canals and inner ear structures. MACRO: None Signed by: Rayshawn Jolley 04/01/2024 1:24 PM Dictation workstation: [id number], Radiologist, - 04/01/2024 Interpreted By: Rayshawn Jolley, STUDY: MR IAC W AND WO IV CONTRAST; 03/31/2024 11:25 am INDICATION: Signs/Symptoms:right vocal cord paralysis, assymmetry at skull base on ct. 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 ACCESSION NUMBER(S): [id number] ORDERING CLINICIAN: JESSENIA BELLO TECHNIQUE: Standard multiplanar multisequence MR imaging was performed through the brain prior to and following administration of 19.5 ML Dotarem intravenous contrast. Additional dedicated pre and post-contrast MR imaging was performed through the internal auditory canals. FINDINGS: Parenchyma: There is no diffusion restriction abnormality to suggest acute infarct. No evidence of recent hemorrhage. There is no mass effect or midline shift. No abnormal parenchymal enhancement. No significant focal parenchymal signal abnormality. CSF Spaces: The ventricles, sulci and basal cisterns are within normal limits for age with minimal sulcal prominence. Basilar cisterns are patent. Extra-axial spaces: No extra-axial fluid collection. Intracranial Flow Voids: Patent appearing. There is asymmetry of the jugular bulbs appearing larger in caliber on the right with no additional abnormality evident. Paranasal Sinuses: Mucosal thickening and small amount of secretions within the left frontoethmoidal region. Otherwise mild diffuse mucosal thickening of the bilateral ethmoid air cells. Polypoid mucosal thickening of the inferior right maxillary paranasal sinus and mild mucosal thickening of the inferior left maxillary paranasal sinus. Mastoids: Trace fluid within the inferior mastoids bilaterally. Otherwise well aerated. IAC region: There is no focus of abnormal enhancement or mass effect in bilateral cerebellopontine angle cisterns. There is no focus of abnormal enhancement within bilateral internal auditory canals. Bilateral inner ear structures demonstrate expected signal and postcontrast appearance. Orbits: Normal. Calvarium: No suspicious osseous marrow signal. IMPRESSION: No acute infarct, recent hemorrhage, intracranial mass effect, or abnormal enhancement. Unremarkable MR appearance of the internal auditory canals and inner ear structures. MACRO: None Signed by: Rayshawn Jolley 04/01/2024 1:24 PM Dictation workstation: [id number] [facility] IAC W AND WO IV CONTRASTOrdered By: Radiologist Radiology on 43-21-5735CRUO [employer] Work Phone: MR IAC W AND WO IV CONTRASTon 11-78-0526PM IAC W AND WO IV CONTRASTInterpreted By: Rayshawn Jolley, STUDY: MR IAC W AND WO IV CONTRAST; 03/31/2024 11:25 am INDICATION: Signs/Symptoms:right vocal cord paralysis, assymmetry at skull base on ct. 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 ACCESSION NUMBER(S): [id number] ORDERING CLINICIAN: JESSENIA BELLO TECHNIQUE: Standard multiplanar multisequence MR imaging was performed through the brain prior to and following administration of 19.5 ML Dotarem intravenous contrast. Additional dedicated pre and post-contrast MR imaging was performed through the internal auditory canals. FINDINGS: Parenchyma: There is no diffusion restriction abnormality to suggest acute infarct. No evidence of recent hemorrhage. There is no mass effect or midline shift. No abnormal parenchymal enhancement. No significant focal parenchymal signal abnormality. CSF Spaces: The ventricles, sulci and basal cisterns are within normal limits for age with minimal sulcal prominence. Basilar cisterns are patent. Extra-axial spaces: No extra-axial fluid collection. Intracranial Flow Voids: Patent appearing. There is asymmetry of the jugular bulbs appearing larger in caliber on the right with no additional abnormality evident. Paranasal Sinuses: Mucosal thickening and small amount of secretions within the left frontoethmoidal region. Otherwise mild diffuse mucosal thickening of the bilateral ethmoid air cells. Polypoid mucosal thickening of the inferior right maxillary paranasal sinus and mild mucosal thickening of the inferior left maxillary paranasal sinus. Mastoids: Trace fluid within the inferior mastoids bilaterally. Otherwise well aerated. IAC region: There is no focus of abnormal enhancement or mass effect in bilateral cerebellopontine angle cisterns. There is no focus of abnormal enhancement within bilateral internal auditory canals. Bilateral inner ear structures demonstrate expected signal and postcontrast appearance. Orbits: Normal. Calvarium: No suspicious osseous marrow signal. IMPRESSION: No acute infarct, recent hemorrhage, intracranial mass effect, or abnormal enhancement. Unremarkable MR appearance of the internal auditory canals and inner ear structures. MACRO: None Signed by: Rayshawn Jolley 04/01/2024 1:24 PM Dictation workstation: [id number] Clinic Medina HospitalRadiology Study observation (narrative)NOMS [id number] Addended by: FAWN TREVIÑO on: 03/31/2024 06:29 AM Modules accepted: OrdersNormalUniversity Protestant HospitalLabon 12-18-7039LlmSsbqxvEjmtdtybqnAvita Health System Bucyrus HospitalPANEL REACTIVE ANTIBODYon 80-98-0552KWDF SPECIMENHold for add-ons.[facility] HospitalCombeaumont hospital on above:Result Comment: Auto resulted.Performed By: #### [id number] ####[facility] TISSUE TYPING (HISTOTRAC)[address] [place] [address] USASINGLE ANTIGEN CLASS Ion 77-38-5576FONMH I LOW RISK JUSTEN:29 68 B:48NormalUniSt. Vincent HospitalCombeaumont hospital on above:Performed By: #### [id number] ####[facility] TISSUE TYPING (HISTOTRAC)[address] [place] [address] USACLASS I SPECIFICITY AB Cw:17Ad[facility] HospitalCombeaumont hospital on above:Performed By: #### [id number] ####[facility] TISSUE TYPING (HISTOTRAC)[address] [place] [address] USACLASS I TESTED [id number] Hospital Cleveland EastCombeaumont hospital on above:Performed By: #### [id number] ####[facility] TISSUE TYPING (HISTOTRAC)[address] [place] [address] SQHVQGE0CkwahdTumwdfufdoAdams County HospitalCombeaumont hospital on above:Performed By: #### [id number] ####[facility] TISSUE TYPING (HISTOTRAC)[address] [place] [address] USAPerformed By: #### [id number] ####[facility] TISSUE TYPING (HISTOTRAC)[address] [place] [address] [place] SIGNED BYSigned by Terrance Figueroa CHT([facility]) MT(ASCP), Upper Cutter Transplant ImmunologyNoRegency Hospital Cleveland EastCombeaumont hospital on above:Result Comment: Class I Antigen MicrobeadsPerformed By: #### [id number] ####[facility] [facility] TISSUE TYPING (HISTOTRAC)[address] [place] [address] USAPerformed By: #### [id number] ####[facility] TISSUE TYPING (HISTOTRAC)[address] [place] [address] [place] SINGLE ANTIGEN CLASS 1 TEST METHODClass I Single AntigenNormalUniSt. Vincent HospitalComment on above:Performed By: #### [id number] ####[facility] TISSUE TYPING (HISTOTRAC)[address] [place] [address] USASINGLE ANTIGEN CLASS II on 76-76-8895SI SCREEN COMMENTSNo Specificites FoundNormalUniSt. Vincent HospitalComment on above:Performed By: #### [id number] ####[facility] TISSUE TYPING (HISTOTRAC)[address] [place] [address] USACLASS II TESTED DATE [id number]. Vincent HospitalComment on above: Performed By: #### [id number] ####[facility] TISSUE TYPING (HISTOTRAC)[address] [place] [address] USASINGLE ANTIGEN CLASS 2 TEST METHODClass II Single Antigen NormalUnUniversity Hospitals Beachwood Medical CenterComment on above:Result Comment: Class II Antigen MicrobeadsPerformed By: #### [id number] ####[facility] TISSUE TYPING (HISTOTRAC)[address] [place] [address] [id number] returned patient call patient still nervous but wants to go active on the list on Sunday he will be in to get a pra over the weekend. Sara Jarrell, RNNormalUniversPremier Health Atrium Medical Center36on 02-12-2024 36NormalUniversPremier Health Atrium Medical CenterXR foot BI 2Von 06-75-7147QU foot BI 2[place] [address] XRay Report Signed Patient: Jordi Huerta MR#: [id number] 8 : 1975 Acct:[id number] Age/Sex: 47 / M ADM Date: 04/12/23 Loc: [facility] Room: Type: [facility] Attending Dr: Rayshawn Chahal MD Copies to: Rayshawn Chahal MD Ordering Provider: Rayshawn Chahal MD Date of Service: 04/12/23 XR/XR foot BI 2V: . Bilateral feet 2 views each Reason for exam: Painful bilateral feet. XR/XR foot BI 2V IMPRESSION: None. FINDINGS: Bones are grossly demineralized limiting evaluation for fracture. Vascular calcifications are noted. No focal soft tissue abnormality. No acute bony process is seen involving either foot. Scattered mild degenerative changes are seen relatively symmetric bilaterally without bony erosions. Plantar spurring bilaterally. IMPRESSION: Degenerative changes of both feet with plantar spurring. No acute bony process is noted. Impression dictated by: Coco Frank Jr.OJorgito04/12/2023 4:44 PM Dictation Location: RADIO-PC-14 Transcribed By: RIDGE 04/12/23 1644 Dictated By: Rivera Nelson Jr, DO 04/12/23 1642 Signed By: 04/12/[address]XR knee BI 2Von 22-97-6691PS [facility] BI [facility] [place] [address] [place] [address] XRay Report Signed Patient: Jordi Huerta MR#: [id number] 8 : 1975 Acct:[id number] Age/Sex: 47 / M ADM Date: 04/12/23 Loc: [facility] Room: Type: [facility] Attending Dr: Rayshawn Chahal MD Copies to: Rayshawn Chahal MD Ordering Provider: Rayshawn Chahal MD Date of Service: 04/12/23 XR/XR knee BI 2V: PAIN BILATERAL KNEES - 2 views each CLINICAL HISTORY: Painful feet and knees. No known injury. COMPARISON: None. FINDINGS: No knee joint effusion. No acute bony process. Minimal degenerative change. XR/XR knee BI 2V IMPRESSION: MINIMAL DEGENERATIVE CHANGES OF BOTH KNEES WITHOUT ACUTE BONY PROCESS. Impression dictated by: Coco Frank Jr.OJorgito04/12/2023 4:33 PM Dictation Location: RADIO-PC-14 Transcribed By: RIDGE 04/12/23 1633 Dictated By: Rivera Nelson Jr, DO 04/12/23 1630 Signed By: 04/12/23 1633NormalUniversity Hospitals Conneaut Medical CenterANA Antinuclear Antibodieson 40-74-1315Zbojyzkyylw Abs, IFANegativeNormal.[facility] Comment on above:Result Comment: Negative <1:80 Borderline 1:80 Positive >1:80 ICAP nomenclature: AC-0 For more information about Hep-2 cell patterns use ANApatterns.org, the official website for the International Consensus on Antinuclear Antibody (CHAD) Patterns (ICAP). Performed at: [facility] Lab[address] [id number] [employer]: Minor Baugh PhD, Phone: [phone] PERFORMED BY: [place] [address] PATHOLOGIST CLINICAL LAB SCIENTIST SUSANNE BEE M.D.Performed By: #### PTH #### [place] [address] USAC-Reactive Proteinon 24-93-1459N-Reactive Protein2.9 mg/dL High0.0-0.5FParma Community General HospitalComment on above:Result Comment: PERFORMED BY: [place] [address] PATHOLOGIST CLINICAL LAB SCIENTIST SUSANNE BEE M.D.Performed By: #### HBSAG, HCV RX PCR #### [facility] ,Complete Blood Count Auto Diffon 87-24-1730Eawblgqog (Bld) [#/Vol]0.1 10*3/uL Normal0.0-0.2FParma Community General HospitalComment on above:Performed By: #### HBSAG, HCV RX PCR #### [facility] ,Basophils/100 WBC (Bld)0.7 %Normal.[facility] Hospitals Conneaut Medical CenterComment on above:Performed By: #### HBSAG, HCV RX PCR #### [facility] ,Eosinophils (Bld) [#/Vol]0.1 10*3/uLNormal0.0-0.45University Hospitals Conneaut Medical CenterComment on above:Performed By: #### HBSAG, HCV RX PCR #### [facility] ,Eosinophils/100 WBC (Bld)0.8 %Normal.[facility] Hospitals Conneaut Medical CenterComment on above:Performed By: #### HBSAG, HCV RX PCR #### [facility] ,Erythrocyte distribution width (RBC) [Ratio]15.5 %High12.0-14.8University Hospitals Conneaut Medical CenterComment on above:Performed By: #### HBSAG, HCV RX PCR #### [facility] ,Hematocrit (Bld) [Volume fraction]46.7 %Rdfqhb13.8-50.0[facility] Hospitals Conneaut Medical CenterComment on above:Performed By: #### HBSAG, HCV RX PCR #### [facility] ,Hemoglobin (Bld) [Mass/Vol]15.9 g/nMEcsurf97.0-17.0[facility] Hospitals Conneaut Medical CenterComment on above:Performed By: #### HBSAG, HCV RX PCR #### [facility] ,Lymphocytes (Bld) [#/Vol]1.1 10*3/uLNormal1.00-4.8[facility]als Conneaut Medical CenterComment on above:Performed By: #### HBSAG, HCV RX PCR #### [facility] ,Lymphocytes/100 WBC (Bld)12.9 %Normal.[facility] Hospitals Conneaut Medical CenterComment on above:Performed By: #### HBSAG, HCV RX PCR #### [facility] ,MCH (RBC) [Entitic mass]31.4 drWgudot02.5-35.2FParma [facility] Comment on above:Performed By: #### HBSAG, HCV RX PCR #### [facility] ,MCV (RBC) [Entitic vol]92.5 yRQpkqyg73.5-101[facility] Comment on above:Performed By: #### HBSAG, HCV RX PCR #### [facility] ,Mean Corpuscular HGB Conc34.0 g/kCGzxzmk60.5-35.6FParma Community General HospitalComment on above:Performed By: #### HBSAG, HCV RX PCR #### [facility] ,Monocytes (Bld) [#/Vol]0.7 10*3/uLNormal0.0-0.8[facility] Conne[facility] Medical CenterComment on above:Performed By: #### HBSAG, HCV RX PCR #### [facility] ,Monocytes/100 WBC (Bld)8.8 %Normal.[facility] Conneaut Medical CenterComment on above:Performed By: #### HBSAG, HCV RX PCR #### [facility] ,Neutrophils (Bld) [#/Vol]6.3 10*3/uLNormal1.8-7.7FParma Community General HospitalComment on above:Performed By: #### HBSAG, HCV RX PCR #### [facility] ,Neutrophils/100 WBC (Bld)76.8 %Normal.[facility] Hospitals Conneaut Medical CenterComment on above:Performed By: #### HBSAG, HCV RX PCR #### [facility] ,NRBC%0.1 /100{WBC}Normal0-0.5FParma Community General HospitalComment on above: Performed By: #### HBSAG, HCV RX PCR #### [facility] ,Platelet mean volume (Bld) [Entitic vol]7.8 fLNormal6.6-10.1FParma Community General HospitalComment on above:Performed By: #### HBSAG, HCV RX PCR #### [facility] ,Platelets (Bld) [#/Vol]237 10*3/iCVhhqox107-058SaylnmpnfUniversity Hospitals Conneaut Medical CenterComment on above:Performed By: #### HBSAG, HCV RX PCR #### [facility] ,RBC (Bld) [#/Vol]5.05 10*6/uLNormal3.90-5.60[facility] Comment on above:Performed By: #### HBSAG, HCV RX PCR #### [facility] ,WBC (Bld) [#/Vol]8.2 10*3/uLNormal4.1-10.5FParma [facility] Hospital Comment on above:Performed By: #### HBSAG, HCV RX PCR #### [facility] ,Comprehensive Metabolic Panelon 97-84-6742Eccoubw [Mass/Vol]4.3 g/dLNormal 3.5-5.7FParma Community General HospitalComment on above:Performed By: #### HBSAG, HCV RX PCR #### [facility] ,Albumin/Globulin [Mass ratio]1.6 {ratio}NormalUniversity Hospitals Conneaut Medical Center Comment on above:Performed By: #### HBSAG, HCV RX PCR #### [facility] ,ALP [Catalytic activity/Vol]66 U/NTrsnwb72-225UeocghqpzUniversity Hospitals Conneaut Medical Center Comment on above:Performed By: #### HBSAG, HCV RX PCR #### [facility] ,ALT [Catalytic activity/Vol]11 U/LNormal7-52[facility] Comment on above:Performed By: #### HBSAG, HCV RX PCR #### [facility] ,Anion gap [Moles/Vol]19.2 mmol/LHigh6.0-15.0[facility] Comment on above:Performed By: #### HBSAG, HCV RX PCR #### [facility] ,AST [Catalytic activity/Vol]11 U/JLrp11-07WhaqnbswnUniversity Hospitals Conneaut Medical Center Comment on above:Performed By: #### HBSAG, HCV RX PCR #### [facility] ,Bilirubin [Mass/Vol]0.6 mg/dLNormal0.3-1.0[facility] Comment on above:Performed By: #### HBSAG, HCV RX PCR #### [facility] ,Calcium [Mass/Vol]9.5 mg/dLNormal8.6-10.3FParma [facility] Hospital Comment on above:Performed By: #### HBSAG, HCV RX PCR #### [facility] ,Chloride [Moles/Vol]99 mmol/LZsjdgo22-222RmoryvcztUniversity Hospitals Conneaut Medical Center Comment on above:Performed By: #### HBSAG, HCV RX PCR #### [facility] ,CO2 [Moles/Vol]24.4 mmol/KGfvzgs30.0-31.0[facility] Comment on above:Performed By: #### HBSAG, HCV RX PCR #### [facility] ,Creatinine [Mass/Vol]6.87 mg/dLHigh0.70-1.30[facility] Comment on above:Performed By: #### HBSAG, HCV RX PCR #### [facility] ,GFR/1.73 sq M.predicted MDRD (S/P/Bld) [Vol rate/Area]9.365 mL/min/{1.73_m2} NormalUniversity Hospitals Conneaut Medical CenterComment on above:Performed By: #### HBSAG, HCV RX PCR #### [facility] ,Globulin (S) [Mass/Vol]2.7 g/dLNoWilson Street HospitalComment on above:Performed By: #### HBSAG, HCV RX PCR #### [facility] ,Glucose [Mass/Vol]68 mg/cRJel15-692CvgxwztaeUniversity Hospitals Conneaut Medical CenterComment on above:Result Comment: Random Glucose Reference Range is dependent on time and content of last meal. Glucose of more than 200 mg/dL in a nonstressed, ambulatory subject supports the diagnosis of Diabetes Mellitus. ADA recommended reference rangePerformed By: #### HBSAG, HCV RX PCR #### [facility] ,Potassium [Moles/Vol]3.6 mmol/LNormal3.5-5.1FParma [facility] Hospital Comment on above:Performed By: #### HBSAG, HCV RX PCR #### [facility] ,Protein [Mass/Vol]7.0 g/dLNonovant health medical park hospital6.4-8.9[facility] Conneaut Medical CenterComment on above:Performed By: #### HBSAG, HCV RX PCR #### [facility] ,Sodium [Moles/Vol]139 mmol/KQlhbnm679-726JwpetzruxUniversity Hospitals Conneaut Medical Center Comment on above:Performed By: #### HBSAG, HCV RX PCR #### [facility] ,Urea nitrogen [Mass/Vol]53 mg/dLHigh7-25[facility] Comment on above:Performed By: #### HBSAG, HCV RX PCR #### [facility] ,Erythrocyte Sedimentation Rateon 61-84-1749XTL (Bld) [Velocity]41 mm/hHigh0-14 [facility] Conneaut Medical CenterComment on above:Result Comment: PERFORMED BY: [facility] [address] [place] [address] PATHOLOGIST CLINICAL LAB SCIENTIST SUSANNE BEE M.D.Performed By: #### HBSAG, HCV RX PCR #### [facility] ,Hep C Ab wRfx to Qnt PCRon 73-22-3419Hamtkdptg C Virus AntibodyNon-Reactive NormalNon ReactiveUniversity Hospitals Conneaut Medical CenterComment on above:Performed By: #### HBSAG, HCV RX PCR #### [facility] ,Interpretation Hepatitis CNormal.[facility] Conneaut Medical CenterComment on above:Result Comment: Not infected with HCV unless early or acute infection is suspected (which may be delayed in an immunocompromised individual), or other evidence exists to indicate HCV infection.Performed By: #### HBSAG, HCV RX PCR #### [facility] ,Hepatitis B Core Antibodyon 43-38-6590Wormzfixg B Core AntibodyNegativeNormal NegativeUniversity Hospitals Conneaut Medical CenterComment on above:Result Comment: Performed at: [address] [id number] [employer]: Minor Baugh PhD, Phone: [phone] By: #### HBSAG, HCV RX PCR #### [facility] ,Hepatitis B Surface Antibodyon 77-64-4621Pnqkhawwc B Surface Antibody Non-ReactiveNormal.[facility] Conneaut Medical CenterComment on above:Result Comment: Non Reactive: Inconsistent with immunity, less than 10 mIU/mL Reactive: Consistent with immunity, greater than 9.9 mIU/mLPerformed By: #### HBSAG, HCV RX PCR #### [facility] ,Hepatitis B Surface Antigenon 33-14-7743KRqCs ScreenNegativeNormalNegative [facility] Conneaut Medical CenterComment on above:Result Comment: PERFORMED BY: [address] [place] [address] PATHOLOGIST CLINICAL LAB SCIENTIST SUSANNE BEE M.D.Performed By: #### HBSAG, HCV RX PCR #### [facility] ,Parathyroid Hormone Intacton 62-39-9134Qdlqmolgzrs Hormone Puzfkk752.0 pg/mL Ydpi81-42Kiqwfwifb21 Meyer StreetComment on above:Result Comment: PERFORMED BY: [address] [place] [address] PATHOLOGIST CLINICAL LAB SCIENTIST SUSANNE BEE M.D.Performed By: #### HBSAG, HCV RX PCR #### [facility] ,Uric Acidon 32-93-0847Vhoot [Mass/Vol]8.1 mg/dLHigh4.4-7.6FParma Community General HospitalComment on above:Performed By: #### HBSAG, HCV RX PCR #### [facility] ,Alanine aminotransferase [Enzymatic activity/volume] in Serum or PlasmaOrdered By: Jesse Huerta on 04-38-3823XBA [Catalytic activity/Vol]23 U/L7-52[facility] Hospit[facility] Conneaut Medical CenterAlbumin [Mass/volume] in Serum or Plasma by Bromocresol green (BCG) dye binding methoOrdered By: Jesse Huerta on 06-92-1499Afofiah BCG dye [Mass/Vol]4.6 g/dL3.5-5.7FParma Community General HospitalAlkaline phosphatase [Enzymatic activity/volume] in Serum or PlasmaOrdered By: Jesse Huerta on 53-80-2043FWV [Catalytic activity/Vol]94 U/I86-347SlousbittUniversity Hospitals Conneaut Medical CenterAspartate aminotransferase [Enzymatic activity/volume] in Serum or PlasmaOrdered By: Jesse Deanna on 34-56-5939RFC [Catalytic activity/Vol]17 U/L 13-39[facility] Medical CenterBasophils Auto (Bld) [#/Vol]Ordered By: Jesse Deanna on 27-39-6236Pdefbtayj (Bld) [#/Vol]0.0 10*3/uL0.0-0.2FParma Community General HospitalBasophils/100 WBC Auto (Bld)Ordered By: Jesse Huerta on 91-87-7332Aqpcgytqm/100 WBC (Bld)0.4 %.[facility] Bilirubin.total [Mass/volume] in Serum or PlasmaOrdered By: Jesse Huerta on 42-89-6816Pvhygmpnr [Mass/Vol]0.7 mg/dL0.3-1.0[facility] CT abdomen pelvis wo conon 15-37-1265LA abdomen pelvis [place] [facility] [place] [address] CT Scan Report Signed Patient: Jordi Huerta MR#: [id number] 8 : 1975 Acct:[id number] Age/Sex: 47 / M ADM Date: 09/15/22 Loc: ER Room: Type: [facility] ER Attending Dr: Copies to: Jesse Huerta PA-C Ordering Provider: Jesse Huerta PA-C Date of Service: 09/15/22 CT/CT abdomen pelvis wo con: recent colostomy, rule out obstruction CT Abdomen and Pelvis withoutcontrast TECHNIQUE: Axial imaging with 2-D reconstruction. . The CT exam was performed using one or more the following dose reduction techniques: Automated exposure control, adjustment of the MA and/or Kv according to patient size, or use of the iterative reconstruction technique. COMPARISON: None History: Nausea. Colostomy filling up with liquid stool. LIMITATIONS: None LOWER THORAX Unremarkable LIVER: Numerous small hepatic cysts. GALLBLADDER: No gallbladder abnormality identified. BILE DUCTS: No dilatation SPLEEN: Unremarkable PANCREAS: Unremarkable ADRENAL GLANDS: Unremarkable KIDNEYS:Polycystic kidneys. Right measures up to 20.5 cm. The left measures up to 22.2 cm. AORTA: No abdominal aortic aneurysm identified. RETROPERITONEUM: No significant retroperitoneal abnormalities identified. MESENTERY:Unremarkable SMALL BOWEL: The small bowel loops are nondistended. Right lower quadrant double barrel ileostomy. Small parastomal hernia. No abscess. APPENDIX: The appendix is normal. COLON: Unremarkable distal colonic anastomosis. Nondistended colon. URINARY BLADDER: Urinary bladder is unremarkable. REPRODUCTIVE SYSTEM: Reproductive structures are unremarkable. PNEUMOPERITONEUM: None PERITONEAL FLUID:None BONY STRUCTURES: Right hip replacement. ABDOMINAL WALL: The umbilical hernia repair. CT/CT abdomen pelvis wo con IMPRESSION: Nondistended small bowel. right lower quadrant double barrel ileostomy. Small parastomal hernia. Unremarkable distal colonic anastomosis. Polycystic kidneys. Numerous tiny hepatic cyst. Impression dictated by: Joe Panda M.D.09/15/2022 6:21 PM Dictation Location: [place] [address] Transcribed By: [facility] 09/15/221820 Dictated By: Joe Panda DO 09/15/221813 Signed By: 09/15/221820NormDoctors HospitalCalcium [Mass/volume] in Serum or PlasmaOrdered By: Jesse Huerta on 51-38-5018Bptvmtf [Mass/Vol]10.7 mg/dL8.6-10.3FParma Community General HospitalCarbon dioxide, total [Moles/volume] in Serum or PlasmaOrdered By: Jesse Huerta on 28-28-1786LV4 [Moles/Vol]24.4 mmol/L21.0-31.0[facility] Medical CenterChloride [Moles/volume] in Serum or PlasmaOrdered By: Jesse Huerta on 33-27-9233Ungodmvj [Moles/Vol]99 mmol/U51-957NfhyxbzolUniversity Hospitals Conneaut Medical CenterClostridium Difficile on 45-99-0793Ydtozxchpnx DifficileNegativeNormalNegativeUniversity Hospitals Conneaut Medical CenterComment on above:Order Comment: > or = to 3 loose/watery stools in the last 24 HRS? Y Is patient on promotility agents or tube feeding? NResult Comment: Testing performed by RT-PCR PERFORMED BY: [facility] [place] [address] PATHOLOGIST CLINICAL LAB SCIENTIST SUSANNE BEE M.D.Performed By: #### OPEXAM #### [facility] , #### CUSTOOL, CDT, LACTO SWBC #### [facility] [address] [place] [address] USAComplete Blood Count Auto Diffon 35-48-3763Qxpzfrcjx (Bld) [#/Vol]0.0 10*3/uLNormal0.0-0.2FParma Community General HospitalComment on above:Result Comment: PERFORMED BY: [facility] [address] [place] [address] PATHOLOGIST CLINICAL LAB SCIENTIST SUSANNE BEE M.D.Performed By: #### HBSAG, HCV RX PCR #### [facility] ,Basophils/100 WBC (Bld)0.4 %Normal.[facility] Medical CenterComment on above:Performed By: #### HBSAG, HCV RX PCR #### [facility] ,Eosinophils (Bld) [#/Vol]0.1 10*3/uLNormal0.0-0.45[facility] Medical CenterComment on above:Performed By: #### HBSAG, HCV RX PCR #### [facility] ,Eosinophils/100 WBC (Bld)0.9 %Normal.[facility] Medical CenterComment on above:Performed By: #### HBSAG, HCV RX PCR #### [facility] ,Erythrocyte distribution width (RBC) [Ratio]16.6 %High12.0-14.8[facility] Medical CenterComment on above:Performed By: #### HBSAG, HCV RX PCR #### [facility] ,Hematocrit (Bld) [Volume fraction]48.3 %Prrjou81.8-50.0[facility] Medical CenterComment on above:Performed By: #### HBSAG, HCV RX PCR #### [facility] ,Hemoglobin (Bld) [Mass/Vol]16.4 g/eDGpqaur25.0-17.0[facility] Medical CenterComment on above:Performed By: #### HBSAG, HCV RX PCR #### [facility] ,Lymphocytes (Bld) [#/Vol]0.6 10*3/uLLow1.00-4.8[facility] Medical CenterComment on above:Performed By: #### HBSAG, HCV RX PCR #### [facility] ,Lymphocytes/100 WBC (Bld)4.6 %Normal.[facility] Medical CenterComment on above:Performed By: #### HBSAG, HCV RX PCR #### [facility] ,MCH (RBC) [Entitic mass]30.8 zkGpbmhr07.5-35.2FPar[facility] Comment on above:Performed By: #### HBSAG, HCV RX PCR #### [facility] ,MCV (RBC) [Entitic vol]90.6 jGYfqsvx47.5-101[facility] Comment on above:Performed By: #### HBSAG, HCV RX PCR #### [facility] ,Mean Corpuscular HGB Conc34.0 g/xXQpdrjw36.5-35.6FParma Community General HospitalComment on above:Performed By: #### HBSAG, HCV RX PCR #### [facility] ,Monocytes (Bld) [#/Vol]0.5 10*3/uLNormal0.0-0.8[facility] Medical CenterComment on above:Performed By: #### HBSAG, HCV RX PCR #### [facility] ,Monocytes/100 WBC (Bld)21.21 %High0.00-20.00[facility] Comment on above:Result Comment: For adults in ED, MDW > 20.0 may be associated with a higher risk of sepsis during the first 12 hrs of hospital admissionPerformed By: #### HBSAG, HCV RX PCR #### [facility] ,Monocytes/100 WBC (Bld)4.2 %Normal.[facility] Medical CenterComment on above:Performed By: #### HBSAG, HCV RX PCR #### [facility] ,Neutrophils (Bld) [#/Vol]10.9 10*3/uLHigh1.8-7.7FParma Community General HospitalComment on above:Performed By: #### HBSAG, HCV RX PCR #### [facility] ,Neutrophils/100 WBC (Bld)89.9 %Normal.[facility] Medical CenterComment on above:Performed By: #### HBSAG, HCV RX PCR #### [facility] ,NRBC%0.1 /100{WBC}Normal0-0.5FParma Community General HospitalComment on above: Performed By: #### HBSAG, HCV RX PCR #### [facility] ,Platelet mean volume (Bld) [Entitic vol]7.7 fLNormal6.6-10.1FParma Community General HospitalComment on above:Performed By: #### HBSAG, HCV RX PCR #### [facility] ,Platelets (Bld) [#/Vol]208 10*3/lYMjmhdw296-169HgygssgarUniversity Hospitals Conneaut Medical CenterComment on above:Performed By: #### HBSAG, HCV RX PCR #### [facility] ,RBC (Bld) [#/Vol]5.33 10*6/uLNormal3.90-5.60[facility] Comment on above:Performed By: #### HBSAG, HCV RX PCR #### [facility] ,WBC (Bld) [#/Vol]12.1 10*3/uLHigh4.1-10.5FParma [facility] Comment on above:Performed By: #### HBSAG, HCV RX PCR #### [facility] ,Comprehensive Metabolic Panelon 08-34-2297Bqcxvte [Mass/Vol]4.6 g/dLNormal 3.5-5.7FParma Community General HospitalComment on above:Performed By: #### HBSAG, HCV RX PCR #### [facility] ,Albumin/Globulin [Mass ratio]1.4 {ratio}[facility] Comment on above:Performed By: #### HBSAG, HCV RX PCR #### [facility] ,ALP [Catalytic activity/Vol]94 U/OJbxiet45-898NxoezoruqUniversity Hospitals Conneaut Medical Center Comment on above:Performed By: #### HBSAG, HCV RX PCR #### [facility] ,ALT [Catalytic activity/Vol]23 U/LNormal7-52[facility] Comment on above:Performed By: #### HBSAG, HCV RX PCR #### [facility] ,Anion gap [Moles/Vol]17.8 mmol/LHigh6.0-15.0[facility] Comment on above:Performed By: #### HBSAG, HCV RX PCR #### [facility] ,AST [Catalytic activity/Vol]17 U/ZRiuvjq93-40GdlhtdryfUniversity Hospitals Conneaut Medical Center Comment on above:Performed By: #### HBSAG, HCV RX PCR #### [facility] ,Bilirubin [Mass/Vol]0.7 mg/dLNormal0.3-1.0[facility] Comment on above:Performed By: #### HBSAG, HCV RX PCR #### [facility] ,Calcium [Mass/Vol]10.7 mg/dLHigh8.6-10.3FPar[facility] Comment on above:Performed By: #### HBSAG, HCV RX PCR #### [facility] ,Chloride [Moles/Vol]99 mmol/KKimnca45-052IamtsurrwUniversity Hospitals Conneaut Medical Center Comment on above:Performed By: #### HBSAG, HCV RX PCR #### [facility] ,CO2 [Moles/Vol]24.4 mmol/CMtdnol72.0-31.0[facility] Comment on above:Performed By: #### HBSAG, HCV RX PCR #### [facility] ,Creatinine [Mass/Vol]5.98 mg/dLHigh0.70-1.30[facility] Comment on above:Performed By: #### HBSAG, HCV RX PCR #### [facility] ,Creatinine Clr Calc Uixbrzxd76.46NoWilson [address] HospitalComment on above:Performed By: #### HBSAG, HCV RX PCR #### [facility] ,GFR/1.73 sq M.predicted MDRD (S/P/Bld) [Vol rate/Area]11.061 mL/min/{1.73_m2} [facility] CenterComment on above:Performed By: #### HBSAG, HCV RX PCR #### [facility] ,Globulin (S) [Mass/Vol]3.3 g/dLNoWilson Street HospitalComment on above:Performed By: #### HBSAG, HCV RX PCR #### [facility] ,Glucose [Mass/Vol]90 mg/xDGyuusp15-518FitqxtezdUniversity Hospitals Conneaut Medical CenterComment on above:Result Comment: Random Glucose Reference Range is dependent on time and content of last meal. Glucose of more than 200 mg/dL in a nonstressed, ambulatory subject supports the diagnosis of Diabetes Mellitus. ADA recommended reference rangePerformed By: #### HBSAG, HCV RX PCR #### [facility] ,Potassium [Moles/Vol]4.2 mmol/LNormal3.5-5.1[facility] Comment on above:Performed By: #### HBSAG, HCV RX PCR #### [facility] ,Protein [Mass/Vol]7.9 g/dLNonovant health medical park hospital6.4-8.9[facility] CenterComment on above:Performed By: #### HBSAG, HCV RX PCR #### [facility] ,Sodium [Moles/Vol]137 mmol/SNpxxkz048-671EggqtqucgUniversity Hospitals Conneaut Medical Center Comment on above:Performed By: #### HBSAG, HCV RX PCR #### [facility] ,Urea nitrogen [Mass/Vol]28 mg/dLHigh7-25[facility] Comment on above:Performed By: #### HBSAG, HCV RX PCR #### [facility] ,Creatinine [Mass/volume] in Serum or PlasmaOrdered By: Jesse Huetra on 33-20-3350Flfsqlfglx [Mass/Vol]5.98 mg/dL0.70-1.30[facility] CenterEosinophils Auto (Bld) [#/Vol]Ordered By: Jesse Huerta on 09-15-2022 Eosinophils (Bld) [#/Vol]0.1 10*3/uL0.0-0.45[facility] Eosinophils/100 WBC Auto (Bld)Ordered By: Jesse Huerta on 09-15-2022 Eosinophils/100 WBC (Bld)0.9 %.[facility] CenterErythrocyte distribution width Auto (RBC) [Ratio]Ordered By: Jesse Huerta on 09-15-2022 Erythrocyte distribution width (RBC) [Ratio]16.6 %12.0-14.8[facility] CenterGlobulin Calc (S) [Mass/Vol]Ordered By: Jesse Huerta on 09-15-2022 Globulin (S) [Mass/Vol]3.3 g/dLUniversity Hospitals Conneaut Medical CenterGlucose [Mass/volume] in Serum or PlasmaOrdered By: Jesse Huerta on 79-46-9662Lltqefj [Mass/Vol]90 mg/hN05-587NbadysbcjUniversity Hospitals Conneaut Medical CenterComment on above:ADA recommended reference rangeRandom Glucose Reference Range is dependent on time and content of last meal. Glucose of more than 200 mg/dL in a nonstressed, ambulatory subject supports the diagnosisof Diabetes Mellitus.Hematocrit Auto (Bld) [Volume fraction]Ordered By: Jesse Huerta on 63-84-0400Zmppmqscfl (Bld) [Volume fraction]48.3 %38.8-50.0[facility] CenterHemoglobin [Mass/volume] in BloodOrdered By: Jesse Huerta on 15-56-7096Lchuallvmp (Bld) [Mass/Vol]16.4 g/dL13.0-17.0[facility] Medical CenterLactoferrin, Stool WBCon 40-91-7861Adkdehuetkj, Stool WBCLACTOFERRIN Positive for Fecal Lactoferrin Review patient history for chronic inflammatory conditions and status which can cause positive results unrelated to acute infectious disease. Reference range = Negative PERFORMED BY: [place] [address] PATHOLOGIST CLINICAL LAB SCIENTIST SUSANNE BEE M.D.NormalUniversity Hospitals Conneaut Medical CenterComment on above: Performed By: #### OPEXAM #### [facility] , #### CUSTOOL, CDT, LACTO SWBC #### [address] [address] USALeukocytes [#/volume] corrected for nucleated erythrocytes in Blood by Automated counOrdered By: Jesse Huerta on 97-17-5968JCI corrected for nucl RBC Auto (Bld) [#/Vol]12.1 10*3/uL4.1-10.5FPar[facility] General HospitalLipaseon 52-66-8004Yugzvs [Catalytic activity/Vol]49.0 U/XWentlc16.0-82.0 [facility] CenterComment on above:Result Comment: PERFORMED BY: [place] [address] PATHOLOGIST CLINICAL LAB SCIENTIST SUSANNE BEE M.D.Performed By: #### HBSAG, HCV RX PCR #### [facility] ,Lipase [Enzymatic activity/volume] in Serum or PlasmaOrdered By: Jesse Huerta on 18-42-3064Opepxr [Catalytic activity/Vol]49.0 U/L11.0-82.0[facility] CenterLymphocytes Auto (Bld) [#/Vol]Ordered By: Jesse Huerta on 01-62-9047Emoljkekphe (Bld) [#/Vol]0.6 10*3/uL1.00-4.8[facility] CenterLymphocytes/100 WBC Auto (Bld)Ordered By: Jesse Huerta on 09-15-2022 Lymphocytes/100 WBC (Bld)4.6 %.[facility] Medical CenterMCH Auto (RBC) [Entitic mass]Ordered By: Jesse Huerta on 74-81-1426XSI (RBC) [Entitic mass]30.8 pg27.5-35.2FPar[facility] HospitalMCHC Auto (RBC) [Mass/Vol]Ordered By: Jesse Huerta on 88-83-9158KUAR (RBC) [Mass/Vol]34.0 g/dL32.5-35.6FPar[facility] HospitalMCV Auto (RBC) [Entitic vol]Ordered By: Jesse Huerta on 92-71-6061LLZ (RBC) [Entitic vol]90.6 fL83.5-101[facility] CenterMonocyte distribution width [Entitic volume] in Blood by AutomatedOrdered By: Jesse Huerta on 29-48-3072Ahjkmgws distribution width Auto (Bld) [Entitic vol]21.21 %0.00-20.00[facility] CenterComment on above:For adults in ED, MDW > 20.0 may be associated with a higher risk of sepsis during the first 12 hrs of hospital admissionMonocytes Auto (Bld) [#/Vol]Ordered By: Jesse Huerta on 74-45-8983Maocrzaku (Bld) [#/Vol]0.5 10*3/uL0.0-0.8[facility] CenterMonocytes/100 WBC Auto (Bld)Ordered By: Jesse Huerta on 81-81-4001Ukygjuktk/100 WBC (Bld)4.2 %.[facility] Neutrophils Auto (Bld) [#/Vol]Ordered By: Jesse Huerta on 08-54-9839Krsuwsfzusg (Bld) [#/Vol]10.9 10*3/uL1.8-7.7FPar[facility] HospitalNeutrophils/100 WBC Auto (Bld)Ordered By: Jesse Huerta on 44-93-2616Jkujkepnbqu/100 WBC (Bld) 89.9 %.[facility] CenterNo Panel InformationOrdered By: Jesse Huerta on 84-94-7661Spmioztuz GFR (CKD-EPI)11.061 mL/MinUniversity Hospitals Conneaut Medical CenterPharmacy Creatinine Clearance (Chem17.46[facility] CenterNucleated erythrocytes [Presence] in Blood by Automated countOrdered By: Jesse Huerta on 20-05-3275Qmrgqzgnj RBC Auto Ql (Bld)0.1 /100{WBC}0-0.5FPar[facility] HospitalOVA AND PARASITEon 69-48-4242ZXO AND PARASITEFinal report These results were obtained using wet preparation(s) and trichrome stained smear. This test does not include testing for Cryptosporidium parvum, Cyclospora, or Microsporidia. No ova, cysts, or parasites seen. One negative specimen does not rule out the possibility of a parasitic infection. Performed at: [address] [id number] [employer]: Minor Baugh PhD, Phone: [phone] PERFORMED BY: [place] [address] PATHOLOGIST CLINICAL LAB SCIENTIST SUSANNE BEE M.D.[facility] Medical CenterComment on above: Performed By: #### OPEXAM #### [facility] , #### CUSTOOL, CDT, LACTO SWBC #### [place] [address] USAPlatelet mean volume Auto (Bld) [Entitic vol]Ordered By: Jesse Huerta on 77-46-3582Rxwtwhxh mean volume (Bld) [Entitic vol]7.7 fL6.6-10.1 [facility] CenterPlatelets Auto (Bld) [#/Vol]Ordered By: Jesse Huerta on 61-97-3991Czqhbvbmn (Bld) [#/Vol]208 10*3/iQ754-804EphfbpskdUniversity Hospitals Conneaut Medical CenterPotassium [Moles/volume] in Serum or PlasmaOrdered By: Jesse Huerta on 77-92-7324Vcxbqqbge [Moles/Vol]4.2 mmol/L3.5-5.1FPar[facility] HospitalProtein [Mass/volume] in Serum or PlasmaOrdered By: Jesse Huerta on 88-04-5285Zscdtmp [Mass/Vol]7.9 g/dL6.4-8.9[facility] RBC Auto (Bld) [#/Vol]Ordered By: Jesse Huerta on 35-66-6398GLO (Bld) [#/Vol] 5.33 10*6/uL3.90-5.60[facility] Medical Centererum or plasma albumin/globulin mass ratioOrdered By: Jesse Huerta on 09-15-2022 Albumin/Globulin [Mass ratio]1.4 {ratio}[facility] Medical Centererum or plasma anion gap determinationOrdered By: Jesse Huerta on 53-40-2013Rjpjs gap [Moles/Vol]17.8 mmol/L6.0-15.0[facility] Medical Centerodium [Moles/volume] in Serum or PlasmaOrdered By: Jesse Huerta on 14-55-3682Wjjtyf [Moles/Vol]137 mmol/M047-933XckhbjwssUniversity Hospitals St. John Medical Centertool Cultureon 14-78-4550Gvims cultureNegative for Shiga Toxin 1 Negative for Shiga Toxin 2 A negative Shiga Toxin result may occur if the antigen level in the specimen is below the detection limit of the assay. Stool culture results No Salmonella, Shigella, Campy or E. coli 0157:H7 Isolated PERFORMED BY: [place] [address] PATHOLOGIST CLINICAL LAB SCIENTIST SUSANNE EBE M.D.[facility] CenterComment on above: Performed By: #### OPEXAM #### [facility] , #### CUSTOOL, CDT, LACTO SWBC #### [place] [address] USAStool lactoferrin detectionOrdered By: Jesse Huerta on 81-20-1732Ffogzhpnrrz Ql (Stl)[facility] CenterUrea nitrogen [Mass/volume] in Serum or PlasmaOrdered By: Jesse Huerta on 98-13-3129Bemz nitrogen [Mass/Vol]28 mg/dL7-25[facility] CenterWBC Auto (Bld) [#/Vol]Ordered By: Jesse Huerta on 43-89-7907FJF (Bld) [#/Vol]12.1 10*3/uL 4.1-10.5FPar[facility] HospitalAlbumin [Mass/volume] in Serum or Plasma by Bromocresol green (BCG) dye binding methoOrdered By: Fredy Bryant on 99-94-7125Jyaqtsq BCG dye [Mass/Vol]3.6 g/dL3.5-5.7FPar[facility] HospitalCalcium [Mass/volume] in Serum or PlasmaOrdered By: Fredy Bryant on 71-48-4208Izxbdcy [Mass/Vol]9.5 mg/dL8.6-10.3[facility] Carbon dioxide, total [Moles/volume] in Serum or PlasmaOrdered By: Fredy Bryant on 66-82-5857YQ6 [Moles/Vol]22.1 mmol/L21.0-31.0[facility] CenterChloride [Moles/volume] in Serum or PlasmaOrdered By: Fredy Bryant on 56-96-6798Dojraeec [Moles/Vol]97 mmol/S53-153GrgoguvzcUniversity Hospitals Conneaut Medical Center Creatinine [Mass/volume] in Serum or PlasmaOrdered By: Fredy Bryant on 08-10-2022 Creatinine [Mass/Vol]9.08 mg/dL0.70-1.30[facility] CenterComment on above:Delta: 7.72 on 08/08/22-0558Erythrocyte distribution width Auto (RBC) [Ratio]Ordered By: Melquiades Ayala on 55-51-6798Jxihizywmcx distribution width (RBC) [Ratio]14.7 %12.0-14.8[facility] CenterGlucose [Mass/volume] in Serum or PlasmaOrdered By: Fredy Bryant on 96-64-0959Kxeshai [Mass/Vol]97 mg/mK20-684UiuzhzxsmUniversity Hospitals Conneaut Medical CenterComment on above:ADA recommended reference rangeRandom Glucose Reference Range is dependent on time and content of last meal. Glucose of more than 200 mg/dL in a nonstressed, ambulatory subject supports the diagnosisof Diabetes Mellitus.Hematocrit Auto (Bld) [Volume fraction]Ordered By: Melquiades Ayala on 79-52-3340Qchxrbfsqj (Bld) [Volume fraction]39.0 %38.8-50.0[facility] Hemoglobin [Mass/volume] in BloodOrdered By: Melquiades Ayala on 08-10-2022 Hemoglobin (Bld) [Mass/Vol]12.8 g/dL13.0-17.0[facility] Hemogram CBC Without Diffon 91-54-9919Peaqysnrgrl distribution width (RBC) [Ratio]14.7 %Afmjjm62.0-14.8[facility] CenterComment on above: Performed By: #### PTH #### [facility] [address] [place] [address] USAHematocrit (Bld) [Volume fraction]39.0 %Mdbeoo69.8-50.0 [facility] CenterComment on above:Performed By: #### PTH #### [facility] [address] [place] [address] USAHemoglobin (Bld) [Mass/Vol]12.8 g/dLLow13.0-17.0[facility] CenterComment on above:Performed By: #### PTH #### [facility] [address] [place] [address] USAMCH (RBC) [Entitic mass]30.1 tdHtclva04.5-35.2FPar[facility] HospitalComment on above:Performed By: #### PTH #### [facility] [address] [place] [address] USAMCV (RBC) [Entitic vol]91.7 oHSkbtie42.5-101[facility] CenterComment on above:Performed By: #### PTH #### [facility] [address] [place] [address] USAMean Corpuscular HGB Conc32.8 g/sLXtjoog86.5-35.6FPar[facility] HospitalComment on above:Performed By: #### PTH #### [facility] [address] [place] [address] USAPlatelet mean volume (Bld) [Entitic vol]8.3 fLNormal 6.6-10.1FPar[facility] HospitalComment on above:Result Comment: PERFORMED BY: [place] [address] PATHOLOGIST CLINICAL LAB SCIENTIST SUSANNE BEE M.D.Performed By: #### PTH #### [facility] [address] [place] [address] USAPlatelets (Bld) [#/Vol]244 10*3/uSVhggiq642-243HaabrlrkjUniversity Hospitals Conneaut Medical CenterComment on above:Performed By: #### PTH #### [facility] [address] [place] [address] USARBC (Bld) [#/Vol]4.25 10*6/uLNormal3.90-5.60[facility] CenterComment on above:Performed By: #### PTH #### [facility] [address] [place] [address] USAWBC (Bld) [#/Vol]13.8 10*3/uLHigh4.1-10.5FPar[facility] HospitalComment on above:Performed By: #### PTH #### [facility] [address] [place] [address] USALeukocytes [#/volume] corrected for nucleated erythrocytes in Blood by Automated counOrdered By: Melquiades Ayala on 68-01-8161TNW corrected for nucl RBC Auto (Bld) [#/Vol]13.8 10*3/uL4.1-10.5[facility] Auto (RBC) [Entitic mass]Ordered By: Melquiades Ayala on 62-88-4548OJV (RBC) [Entitic mass]30.1 pg27.5-35.2FFayette County Memorial Hospital Auto (RBC) [Mass/Vol]Ordered By: Melquiades Ayala on 28-42-6586DMDG (RBC) [Mass/Vol]32.8 g/dL32.5-35.6FPar[facility] HospitalMCV Auto (RBC) [Entitic vol]Ordered By: Melquiades Ayala on 56-54-0997PID (RBC) [Entitic vol]91.7 fL83.5-101[facility] CenterNo Panel InformationOrdered By: Fredy Bryant on 85-82-7366Lrwohmeqw GFR (CKD-EPI)6.701 mL/MinUniversity Hospitals Conneaut Medical CenterPharmacy Creatinine Clearance (Chem12.16[facility] CenterPhosphate [Mass/volume] in Serum or PlasmaOrdered By: Fredy rByant on 25-24-6227Bviijqlzf [Mass/Vol]7.7 mg/dL3.7-7.2FPar[facility] HospitalPlatelet mean volume Auto (Bld) [Entitic vol]Ordered By: Melquiades Ayala on 32-57-4527Jkybvqor mean volume (Bld) [Entitic vol]8.3 fL6.6-10.1 [facility] Medical CenterPlatelets Auto (Bld) [#/Vol]Ordered By: Melquiades Ayala on 20-84-9894Jjtvdstxe (Bld) [#/Vol]244 10*3/oB255-305YjvdpqruwUniversity Hospitals Conneaut Medical CenterPotassium [Moles/volume] in Serum or PlasmaOrdered By: Fredy Bryant on 72-12-3022Obylueeja [Moles/Vol]3.7 mmol/L3.5-5.1FPar[facility] General HospitalRBC Auto (Bld) [#/Vol]Ordered By: Melquiades Ayala on 80-68-5559ZGR (Bld) [#/Vol]4.25 10*6/uL3.90-5.60[facility] Medical CenterRenal Function Panelon 83-38-4509Qhvpkpi [Mass/Vol]3.6 g/dLNormal3.5-5.7 [facility] CenterComment on above:Performed By: #### PTH #### [place] [address] USAAnion gap [Moles/Vol]21.6 mmol/LHigh6.0-15.0[facility] CenterComment on above:Performed By: #### PTH #### [facility] [address] [place] [address] USACalcium [Mass/Vol]9.5 mg/dLNormal8.6-10.3FPar[facility] HospitalComment on above:Performed By: #### PTH #### [facility] [address] [place] [address] USAChloride [Moles/Vol]97 mmol/PUoq28-059ErozqnkqdUniversity Hospitals Conneaut Medical CenterComment on above:Performed By: #### PTH #### [facility] [address] [place] [address] USACO2 [Moles/Vol]22.1 mmol/DCicxli54.0-31.0[facility] CenterComment on above:Performed By: #### PTH #### [place] [address] USACreatinine [Mass/Vol]9.08 mg/dLSignificant change up 0.70-1.30[facility] CenterComment on above:Performed By: #### PTH #### [place] [address] USACreatinine Clr Calc Qywkrqlq23.16NormalUniversity Hospitals Conneaut Medical CenterComment on above:Result Comment: PERFORMED BY: [place] [address] PATHOLOGIST CLINICAL LAB SCIENTIST SUSANNE BEE M.D.Performed By: #### PTH #### [facility] [address] [place] [address] USAGFR/1.73 sq M.predicted MDRD (S/P/Bld) [Vol rate/Area] 6.701 mL/min/{1.73_m2}NormalUniversity Hospitals Conneaut Medical CenterComment on above: Performed By: #### PTH #### [place] [address] USAGlucose [Mass/Vol]97 mg/gMHiivoy83-978PjruwxahlUniversity Hospitals Conneaut Medical CenterComment on above:Result Comment: Random Glucose Reference Range is dependent on time and content of last meal. Glucose of more than 200 mg/dL in a nonstressed, ambulatory subject supports the diagnosis of Diabetes Mellitus. ADA recommended reference rangePerformed By: #### PTH #### [facility] [address] [place] [address] USAPhosphate [Mass/Vol]7.7 mg/dLHigh3.7-7.2FPar[facility] HospitalComment on above:Performed By: #### PTH #### [facility] [address] [place] [address] USAPotassium [Moles/Vol]3.7 mmol/LNormal3.5-5.1FPar[facility] General HospitalComment on above:Performed By: #### PTH #### [facility] [address] [place] [id number] USASodium [Moles/Vol]137 mmol/CVeamaw329-506ZmspjcytkUniversity Hospitals Conneaut Medical CenterComment on above:Performed By: #### PTH #### [facility] [address] [place] [id number] USAUrea nitrogen [Mass/Vol]87 mg/dLHigh7-25[facility] CenterComment on above:Performed By: #### PTH #### [facility] [address] [place], [place] [address] USASerum or plasma anion gap determinationOrdered By: Fredy Manny on 16-38-4509Ewdby gap [Moles/Vol]21.6 mmol/L6.0-15.0[facility] Medical Centerodium [Moles/volume] in Serum or PlasmaOrdered By: Fredy Manny on 71-44-5189Asdfki [Moles/Vol]137 mmol/B814-352QanplibexUniversity Hospitals Conneaut Medical Center Urea nitrogen [Mass/volume] in Serum or PlasmaOrdered By: Fredy Manny on 70-53-1676Xryl nitrogen [Mass/Vol]87 mg/dL7-25[facility] Hemogram CBC Without Diffon 37-15-6206Khvtstbpplv distribution width (RBC) [Ratio]14.9 %High12.0-14.8[facility] CenterComment on above: Performed By: #### CBCNO #### [facility] [address] [place] [address] USAHematocrit (Bld) [Volume fraction]40.3 %Ggljfy39.8-50.0 [facility] CenterComment on above:Performed By: #### CBCNO #### [place] [address] USAHemoglobin (Bld) [Mass/Vol]13.2 g/oUJmjxcv47.0-17.0 [facility] CenterComment on above:Performed By: #### CBCNO #### [place] [address] USAMCH (RBC) [Entitic mass]30.1 yuIxjvye19.5-35.2FParma [facility] General HospitalComment on above:Performed By: #### CBCNO #### [place] [address] USAMCV (RBC) [Entitic vol]91.8 mKLnzgys02.5-101[facility] CenterComment on above:Performed By: #### CBCNO #### [place] [address] USAMean Corpuscular HGB Conc32.8 g/aFMcnwlz64.5-35.6FParma Community General HospitalComment on above:Performed By: #### CBCNO #### [place] [address] USAPlatelet mean volume (Bld) [Entitic vol]8.0 fLNormal 6.6-10.1FParma Community General HospitalComment on above:Result Comment: PERFORMED BY: [place] [address] PATHOLOGIST CLINICAL LAB SCIENTIST SUSANNE BEE M.D.Performed By: #### CBCNO #### [place] [address] USAPlatelets (Bld) [#/Vol]202 10*3/bRMeatgm790-521TvydtxcidUniversity Hospitals Conneaut Medical CenterComment on above:Performed By: #### CBCNO #### [facility] [address] [place] [address] USARBC (Bld) [#/Vol]4.39 10*6/uLNormal3.90-5.60[facility] CenterComment on above:Performed By: #### CBCNO #### [facility] [address] [place] [address] USAWBC (Bld) [#/Vol]12.5 10*3/uLHigh4.1-10.5FParma Community General HospitalComment on above:Performed By: #### CBCNO #### [facility] [address] [place] [id number] USAAlanine aminotransferase [Enzymatic activity/volume] in Serum or PlasmaOrdered By: Alma Delia Arteaga on 35-30-2405MYD [Catalytic activity/Vol]7 U/L7-52[facility] Medical CenterAlkaline phosphatase [Enzymatic activity/volume] in Serum or PlasmaOrdered By: Alma Delia Arteaga on 04-89-7349GCJ [Catalytic activity/Vol]58 U/Q12-660YsbqrhkicUniversity Hospitals Conneaut Medical CenterAspartate aminotransferase [Enzymatic activity/volume] in Serum or Plasma Ordered By: Alma Delia Arteaga on 04-04-1097TAD [Catalytic activity/Vol]9 U/L13-39 [facility] Medical CenterBasophils Auto (Bld) [#/Vol]Ordered By: Alma Delia Arteaga on 36-44-4003Kajljkeus (Bld) [#/Vol]0.1 10*3/uL0.0-0.2FParma [facility] General HospitalBasophils/100 WBC Auto (Bld)Ordered By: Alma Delia Arteaga on 75-66-3566Bwcbgrvit/100 WBC (Bld)0.5 %.[facility] Bilirubin.total [Mass/volume] in Serum or PlasmaOrdered By: Alma Delia Arteaga on 50-85-8351Flvqgkbkl [Mass/Vol]0.6 mg/dL0.3-1.0[facility] Complete Blood Count Auto Diffon 00-19-7328Vwowtwusp (Bld) [#/Vol]0.1 10*3/uL Normal0.0-0.2FParma Community General HospitalComment on above:Result Comment: PERFORMED BY: [place] [address] PATHOLOGIST CLINICAL LAB SCIENTIST SUSANNE BEE M.D.Performed By: #### CMP, CBC #### [place] [address] USABasophils/100 WBC (Bld)0.5 %Normal.[facility] Medical CenterComment on above:Performed By: #### CMP, CBC #### [place] [address] USAEosinophils (Bld) [#/Vol]0.1 10*3/uLNormal0.0-0.45 [facility] CenterComment on above:Performed By: #### CMP, CBC #### [place] [address] USAEosinophils/100 WBC (Bld)0.5 %Normal.[facility] Medical CenterComment on above:Performed By: #### CMP, CBC #### [place] [address] USAErythrocyte distribution width (RBC) [Ratio]14.9 %High 12.0-14.8[facility] Medical CenterComment on above:Performed By: #### CMP, CBC #### [place] [address] USAHematocrit (Bld) [Volume fraction]37.7 %Low38.8-50.0 [facility] Medical CenterComment on above:Performed By: #### CMP, CBC #### [place] [address] USAHemoglobin (Bld) [Mass/Vol]12.4 g/dLLow13.0-17.0[facility] CenterComment on above:Performed By: #### CMP, CBC #### [place] [address] USALymphocytes (Bld) [#/Vol]1.1 10*3/uLNormal1.00-4.8 [facility] CenterComment on above:Performed By: #### CMP, CBC #### [facility] [address] [place] [address] USALymphocytes/100 WBC (Bld)9.2 %Normal.[facility] Medical CenterComment on above:Performed By: #### CMP, CBC #### [facility] [address] (RBC) [Entitic mass]29.8 wzGwtlud60.5-35.2FParma Community General HospitalComment on above:Performed By: #### CMP, CBC #### [place] [address] USAMCV (RBC) [Entitic vol]91.2 yWFxltvr30.5-101[facility] CenterComment on above:Performed By: #### CMP, CBC #### [place] [address] USAMean Corpuscular HGB Conc32.7 g/aTMmejlh88.5-35.6FParma Community General HospitalComment on above:Performed By: #### CMP, CBC #### [place] [address] USAMonocytes (Bld) [#/Vol]1.0 10*3/uLHigh0.0-0.8[facility] CenterComment on above:Performed By: #### CMP, CBC #### [place] [id number] USAMonocytes/100 WBC (Bld)7.8 %Normal.[facility] Medical CenterComment on above:Performed By: #### CMP, CBC #### [place] [address] USANeutrophils (Bld) [#/Vol]10.1 10*3/uLHigh1.8-7.7FParma Community General HospitalComment on above:Performed By: #### CMP, CBC #### [facility] [address] [place] [id number] USANeutrophils/100 WBC (Bld)82.0 %Normal.[facility] CenterComment on above:Performed By: #### CMP, CBC #### [facility] [address] [place] [address] USANRBC%0.0 /100{WBC}Normal0-0.5FParma Community General HospitalComment on above:Performed By: #### CMP, CBC #### [facility] [address] [place] [address] USAPlatelet mean volume (Bld) [Entitic vol]8.1 fLNormal 6.6-10.1FParma Community General HospitalComment on above:Performed By: #### CMP, CBC #### [place] [address] USAPlatelets (Bld) [#/Vol]184 10*3/pLLzjadm307-706FzqhrywchUniversity Hospitals Conneaut Medical CenterComment on above:Performed By: #### CMP, CBC #### [facility] [address] [place] [address] USARBC (Bld) [#/Vol]4.14 10*6/uLNormal3.90-5.60University [facility]als Conneaut Medical CenterComment on above:Performed By: #### CMP, CBC #### [facility] [address] [place] [address] USAWBC (Bld) [#/Vol]12.3 10*3/uLHigh4.1-10.5FParma Community General HospitalComment on above:Performed By: #### CMP, CBC #### [place] [address] USAComprehensive Metabolic Panelon 94-92-2973Hiykxhx [Mass/Vol]3.6 g/dLNormal3.5-5.7FParma Community General HospitalComment on above:Performed By: #### HBSAG, HCV RX PCR #### [facility] ,Albumin/Globulin [Mass ratio]1.2 {ratio}NormalUniversity Hospitals Conneaut Medical Center Comment on above:Performed By: #### HBSAG, HCV RX PCR #### [facility] ,ALP [Catalytic activity/Vol]58 U/UUvgprc28-650VbwonthobUniversity Hospitals Conneaut Medical Center Comment on above:Performed By: #### HBSAG, HCV RX PCR #### [facility] ,ALT [Catalytic activity/Vol]7 U/LNormal7-52[facility] Comment on above:Performed By: #### HBSAG, HCV RX PCR #### [facility] ,Anion gap [Moles/Vol]18.9 mmol/LHigh6.0-15.0[facility] Comment on above:Performed By: #### HBSAG, HCV RX PCR #### [facility] ,AST [Catalytic activity/Vol]9 U/LHms14-84HlkmefjewUniversity Hospitals Conneaut Medical Center Comment on above:Performed By: #### HBSAG, HCV RX PCR #### [facility] ,Bilirubin [Mass/Vol]0.6 mg/dLNormal0.3-1.0[facility] Comment on above:Performed By: #### HBSAG, HCV RX PCR #### [facility] ,Calcium [Mass/Vol]8.8 mg/dLNormal8.6-10.3FParma [facility] Hospital Comment on above:Performed By: #### HBSAG, HCV RX PCR #### [facility] ,Chloride [Moles/Vol]103 mmol/QDtjbss51-327MldqyuiqoUniversity Hospitals Conneaut Medical Center Comment on above:Performed By: #### HBSAG, HCV RX PCR #### [facility] ,CO2 [Moles/Vol]20.8 mmol/LLow21.0-31.0[facility] Medical CenterComment on above:Performed By: #### HBSAG, HCV RX PCR #### [facility] ,Creatinine [Mass/Vol]7.72 mg/dLHigh0.70-1.30[facility] Comment on above:Performed By: #### HBSAG, HCV RX PCR #### [facility] ,Creatinine Clr Calc Rhvujtyw85.59No[address] HospitalComment on above:Result Comment: PERFORMED BY: [facility] [place] [id number] PATHOLOGIST CLINICAL LAB SCIENTIST SUSANNE BEE M.D.Performed By: #### HBSAG, HCV RX PCR #### [facility] ,GFR/1.73 sq M.predicted MDRD (S/P/Bld) [Vol rate/Area]8.141 mL/min/{1.73_m2} [facility] CenterComment on above:Performed By: #### HBSAG, HCV RX PCR #### [facility] ,Globulin (S) [Mass/Vol]2.9 g/dLNoWilson Street HospitalComment on above:Performed By: #### HBSAG, HCV RX PCR #### [facility] ,Glucose [Mass/Vol]74 mg/kPZqvtwt79-219UmnduhbwcUniversity Hospitals Conneaut Medical CenterComment on above:Result Comment: Random Glucose Reference Range is dependent on time and content of last meal. Glucose of more than 200 mg/dL in a nonstressed, ambulatory subject supports the diagnosis of Diabetes Mellitus. ADA recommended reference rangePerformed By: #### HBSAG, HCV RX PCR #### [facility] ,Potassium [Moles/Vol]3.7 mmol/LNormal3.5-5.1FParma [facility] Comment on above:Performed By: #### HBSAG, HCV RX PCR #### [facility] ,Protein [Mass/Vol]6.5 g/dLNoal6.4-8.9[facility] CenterComment on above:Performed By: #### HBSAG, HCV RX PCR #### [facility] ,Sodium [Moles/Vol]139 mmol/RUgvidn627-001VimzwacrzUniversity Hospitals Conneaut Medical Center Comment on above:Performed By: #### HBSAG, HCV RX PCR #### [facility] ,Urea nitrogen [Mass/Vol]74 mg/dLHigh7-25[facility] Comment on above:Performed By: #### HBSAG, HCV RX PCR #### [facility] ,Eosinophils Auto (Bld) [#/Vol]Ordered By: Alma Delia Arteaga on 08-08-2022 Eosinophils (Bld) [#/Vol]0.1 10*3/uL0.0-0.45[facility] Eosinophils/100 WBC Auto (Bld)Ordered By: Alma Delia Arteaga on 08-08-2022 Eosinophils/100 WBC (Bld)0.5 %.[facility] Conneaut Medical CenterGlobulin Calc (S) [Mass/Vol]Ordered By: Alma Delia Arteaga on 63-60-1616Nyugrcle (S) [Mass/Vol]2.9 g/dLUniversity Hospitals Conneaut Medical CenterLymphocytes Auto (Bld) [#/Vol]Ordered By: Alma Delia Arteaga on 63-13-5033Eornquovarv (Bld) [#/Vol]1.1 10*3/uL1.00-4.8[facility] Conneaut Medical CenterLymphocytes/100 WBC Auto (Bld)Ordered By: Alma Delia Arteaga on 61-39-5680Mtvgnwicuoq/100 WBC (Bld)9.2 %.[facility] Monocytes Auto (Bld) [#/Vol]Ordered By: Alma Delia Arteaga on 62-88-6874Gvqvdwatg (Bld) [#/Vol]1.0 10*3/uL0.0-0.8[facility] Medical CenterMonocytes/100 WBC Auto (Bld)Ordered By: Alma Delia Arteaga on 35-15-1451Qilxqsmtq/100 WBC (Bld)7.8 %.[facility] Conne[facility] Medical CenterNeutrophils Auto (Bld) [#/Vol]Ordered By: Alma Delia Arteaga on 41-77-0117Zrvokgkvlcy (Bld) [#/Vol]10.1 10*3/uL1.8-7.7FParma Community General HospitalNeutrophils/100 WBC Auto (Bld)Ordered By: Alma eDlia Arteaga on 40-47-9749Glaepvbupij/100 WBC (Bld)82.0 %.[facility] Nucleated erythrocytes [Presence] in Blood by Automated countOrdered By: Alma Delia Arteaga on 40-37-1742Aycabzven RBC Auto Ql (Bld)0.0 /100{WBC}0-0.5FParma Community General HospitalProtein [Mass/volume] in Serum or PlasmaOrdered By: Alma Delia Arteaga on 45-74-9515Qffqqiq [Mass/Vol]6.5 g/dL6.4-8.9[facility] Medical Centererum or plasma albumin/globulin mass ratioOrdered By: Alma Delia Arteaga on 57-91-9184Duaysxg/Globulin [Mass ratio]1.2 {ratio}[facility] Conne[facility] Medical CenterWBC Auto (Bld) [#/Vol]Ordered By: Alma Delia Arteaga on 07-85-3902DZS (Bld) [#/Vol]12.3 10*3/uL4.1-10.5FParma Community General HospitalAMYLASEon 16-89-2761Jkrgeoe [Catalytic activity/Vol]104 U/HWytwxu34-716Gct [facility] HospitalComment on above:Performed By: #### LIPA, CMP, DARREN #### [facility] [address] [address] [address] Johanna Quintero AUTO DIFFon 44-31-7604ZBCW #0.0 103/ulNormal0.0-0.1The [facility]ruder HospitalComment on above:Performed By: #### CBC #### [facility] [address] [address] [address] Johanna Jesussophils/100 WBC (Bld)0.2 %Normal0.2-2.0[facility] Comment on above:Performed By: #### CBC #### [facility] [address] [address] [address] Johanna Tejeda #0.1 103/ulNormal0.0-0.7The [facility]uder HospitalComment on above: Performed By: #### CBC #### [facility] [address] [place] [address] Dr. Johanna Hudsonosinophils/100 WBC (Bld)0.3 %Critically low0.9-7.0The [facility] Medical Centerment on above:Performed By: #### CBC #### [facility] [address] [place] [address] Dr. Johanna Hudsonrythrocyte distribution width (RBC) [Ratio]13.6 %Aubbnz13.0-15.0 [facility] Medical Centerment on above:Performed By: #### CBC #### [facility] [address] [place] [address] Dr. Johanna BoothHematocrit (Bld) [Volume fraction]41.2 %Critically low42.0-54.0 [facility] CenterComment on above:Performed By: #### CBC #### [facility] [address] [place] [address] Dr. Johanna BoothHemoglobin (Bld) [Mass/Vol]13.6 g/dLCritically low14.0-18.0The [facility] Medical Centerment on above:Performed By: #### CBC #### [facility] [address] [place] [address] Dr. Johanna Antunez #0.08 10e3/ulCritically high0.00-0.03The [facility] Comment on above:Performed By: #### CBC #### [facility] [address] [place] [address] Dr. Johanna Antunez %0.4 %Normal0.0-0.5The [facility] HospitalComment on above: Performed By: #### CBC #### [facility] [address] [place] [address] Dr. Johanna Bal #1.6 103/ulNormal1.2-3.8The [facility] Centerment on above:Performed By: #### CBC #### [facility] [address] [place] [address] Dr. Johanna Felicianomphocytes/100 WBC (Bld)8.9 %Critically low20.5-60.0The [facility] HospitalComment on above:Performed By: #### CBC #### [facility] [address] [place] [address] Dr. Johanna Armenta DIFF REQNONormalThe [facility]uder HospitalComment on above: Performed By: #### CBC #### [facility] [address] [place] [address] Dr. Johanna Barnard (RBC) [Entitic mass]30.2 euGpckwa81.9-34.0The [facility] HospitalComment on above:Performed By: #### CBC #### [facility] [address] [place] [address] Dr. Johanna Barnard (RBC) [Mass/Vol]33.0 g/tKEughul09.9-35.2The [facility] HospitalComment on above:Performed By: #### CBC #### [facility] [address] [place] [address] Dr. Johnana Cunningham (RBC) [Entitic vol]91.6 xPFnghpv32.0-94.0[facility] CenterComment on above:Performed By: #### CBC #### [facility] [address] [place] [address] Dr. Johanna Almanzar #0.9 103/ulCritically high0.3-0.8ThRegency Hospital [facility] Comment on above:Performed By: #### CBC #### [facility] [address] [place] [address] Dr. Johanna Horneocytes/100 WBC (Bld)5.1 %Normal1.7-12.0[facility] Comment on above:Performed By: #### CBC #### [facility] [address] [place] [address] Dr. Johanna Pruitt #15.3 103/ulCritically high1.4-6.5ThRegency Hospital [facility] Comment on above:Performed By: #### CBC #### [facility] [address] [place] [address] Dr. Yilan ChangNeutrophils/100 WBC (Bld)85.1 %Critically high43.0-75.0The [facility] HospitalComment on above:Performed By: #### CBC #### [facility] [address] [place] [address] Dr. Johanna Sebastian mean volume (Bld) [Entitic vol]9.6 fLNormal9.5-13.5The [facility] HospitalComment on above:Performed By: #### CBC #### [facility] [address] [place] [address] Dr. Johanna BoothPLT226 103/vgKroyda213-926Qlk [facility] HospitalComment on above: Performed By: #### CBC #### [facility] [address] [place] [address] Dr. Johanna BoothRBC4.50 106/ulCritically low4.70-6.10The [facility] HospitalComment on above:Performed By: #### CBC #### [facility] [address] [place] [address] Dr. Johanna BoothWBC18.0 103/ulCritically high4.0-11.0The [facility] HospitalComment on above:Performed By: #### CBC #### [facility] [address] [place] [address] Dr. Johanna BoothCT ABD/PELVIS WO CONon 10-80-9850FG ABD/PELVIS WO CONCT ABD/PELVIS WO CON: 08/07/2022 1:34 AM EDT CLINICAL HISTORY: 47 years old Male with UNSPECIFIED ABDOMINAL PAIN. Left lower quadrant. TECHNIQUE: Axial CT images through the abdomen and pelvis are obtained without the intravenous administration of contrast. Coronal and sagittal reformations are also obtained. Dose reduction techniques were achieved by using automated exposure control and/or adjustment of mA and/or kV according to patient size and/or use of iterative reconstruction technique. COMPARISON: CT abdomen pelvis 05/05/2021. FINDINGS: The lung bases are clear with no dependent infiltrate or effusion. Without the use of IV or oral contrast the study is limited by incomplete evaluation of the blood vessels, solid visceral organs and bowel. The gallbladder, spleen, pancreas and bilateral adrenal glands are unremarkable. Numerous simple hepatic cysts are present. The kidneys are massively enlarged with numerous simple and complicated cysts bilaterally compatible with polycystic kidneys. No hydronephrosis or ureteral abnormality. The stomach and small bowel are unremarkable. The appendix is visualized without inflammatory change. Multiple diverticula of the descending and sigmoid colon are present with abnormal mucosal thickening and stranding at the proximal sigmoid colon with small regions of free air compatible with focal perforation. No abscess formation or free fluid. Right total hip prosthesis resulting spray artifact at the pelvis degrading evaluation. The bladder appears unremarkable. There is no evidence of aortic aneurysm. No enlarged lymph nodes are seen. The prostate gland is within normal limits. No acute compression fracture deformity. Lucent right iliac lesion with probably benign appearance is again present. IMPRESSION: 1. Acute sigmoid diverticulitis with focal small free air/perforation. No large pneumoperitoneum or abscess formation. 2. Polycystic kidneys and multiple hepatic cysts. Findings discussed with Dr. Marcus 08/07/2022 2:22 AM. Electronically authenticated by: NII ABBOTT Date: 2022-08-07 02:23Normal The Magruder HospitalLIPASEon 61-86-1124Cjfbmb [Catalytic activity/Vol]104.0 U/L Tbrxla12.0-393.0The [facility] HospitalComment on above:Performed By: #### LIPKetty CMP, DARREN #### [facility] [address] [place] [address] Dr. Johanna Goddard 14(COMP METB)on 36-61-1082Xdaqisu [Mass/Vol]3.7 g/dLNormal 3.4-5.0The [facility] HospitalComment on above:Performed By: #### LIPKetty CMP, DARREN #### [facility] [address] [place] [address] Dr. Johanna BoothAlbumin/Globulin [Mass ratio]0.9 {ratio}NormalThe [facility] on above:Performed By: #### LIPKetty CMP, DARREN #### [facility] [address] [place] [address] Dr. Johanna MurphyP [Catalytic activity/Vol]83 U/JDrgukn23-767Qyu [facility] on above:Performed By: #### LIPA CMP, DARREN #### [facility] [address] [address] [address] Johanna MurphyT [Catalytic activity/Vol]16 U/WPwaiet49-94Eoa [facility] HospitalComment on above:Performed By: #### LIPA, CMP, DARREN #### [facility] [address] [place] [address] Dr. Jhoanna Parkeron gap [Moles/Vol]15.1 mmol/LNormalThe [facility] Comment on above:Performed By: #### LIPA, CMP, DARREN #### [facility] [address] [place] [address] Dr. Johanna BoothAST [Catalytic activity/Vol]14 U/LCritically aru59-23Nwq [facility] HospitalComment on above:Performed By: #### LIPA, CMP, DARREN #### [facility] [address] [place] [address] Dr. Johanna BoothBilirubin [Mass/Vol]0.3 mg/dLNormal0.2-1.0[facility] Comment on above:Performed By: #### LIPA, CMP, DARREN #### [facility] [address] [place] [address] Dr. Johanna BoothCalcium [Mass/Vol]10.0 mg/dLNormal8.5-10.1[facility] Comment on above:Performed By: #### LIPA, CMP, DARREN #### [facility] [address] [place] [address] Dr. Johanna BoothChloride [Moles/Vol]100 mmol/QHjmqns47-569Yii [facility] Comment on above:Performed By: #### LIPA, CMP, DARREN #### [facility] [address] [place] [address] Dr. Johanna BoothCO2 [Moles/Vol]26.0 mmol/XKkooaf14.0-32.0The [facility] Comment on above:Performed By: #### LIPA, CMP, DARREN #### [facility] [address] [place] [address] Dr. Johanna BoothCreatinine [Mass/Vol]6.65 mg/dLCritically high0.70-1.30The [facility] HospitalComment on above:Performed By: #### LIPA, CMP, DARREN #### [facility] [address] [place] [address] Dr. Johanna HudsonGFR-AF KDQYFBBZ62 mL/min/1.50i2Cqpfbjpowc low>=60The [facility] HospitalComment on above:Performed By: #### LIPA, CMP, DARREN #### [facility] [address] [place] [address] Dr. Johanna HudsonGFR-NON AF AMERICAN9 mL/min/1.85q0Chtxvbkigx low>=60The [facility] HospitalComment on above:Performed By: #### LIPA, CMP, DARREN #### [facility] [address] [place] [address] Dr. Johanna BoothGlobulin (S) [Mass/Vol]4.0 g/dLNormalThe [facility] HospitalComment on above:Performed By: #### LIPA, CMP, DARREN #### [facility] [address] [place] [address] Dr. Johanna BoothGlucose [Mass/Vol]100 mg/dAVtbywg32-565WbiAshtabula County Medical Center Comment on above:Performed By: #### LIPA, CMP, DARREN #### [facility] [address] [place] [address] Dr. Johanna BoothPotassium [Moles/Vol]3.1 mmol/LCritically low3.5-5.1[facility] CenterComment on above:Performed By: #### LIPA, CMP, DARREN #### [facility] [address] [place] [address] Dr. Johanna BoothProtein [Mass/Vol]7.7 g/dLNormal6.4-8.2[facility] Comment on above:Performed By: #### LIPA, CMP, DARREN #### [facility] [address] [place] [address] Dr. Johanna BoothSodium [Moles/Vol]138 mmol/FWmrivw239-889QguAshtabula County Medical Center Comment on above:Performed By: #### LIPA, CMP, DARREN #### [facility] [address] [place], [place] [address] Dr. Johanna Beasley nitrogen [Mass/Vol]55.0 mg/dLCritically high7.0-18.0[facility] CenterComment on above:Performed By: #### WILDER BINGHAM, DARREN #### [facility] [address] [place], [place] [address] Dr. Johanna Beasley nitrogen/Creatinine [Mass ratio]8.3 mg/mgNoPomerene HospitalComment on above:Performed By: #### WILDER BINGHAM, DARREN #### [facility] [address] [place], [place] [address] Dr. Johanna BoothRAD - CT Reporton 81-77-5074LPO - CT Report [id number]#1.00CD:[address] [place], [place] [address]Coding Summary.on 86-67-6293Ryiidh Summary. CD:[id number]+PGhlYWQ+YP3GWJYvF37zuPXinA4dK7RIJLlUCqqpYQOCICiOWiUrrdArE O1ssUJyJWKp [file] z1S3RXOt (more content not included)...NormalFishUniversity of Maryland Medical CenterConsent for Procedure/Surgeryon 47-86-9614Durrzpd for Procedure/Surgery [id number]#1.00CD:127NormZanesville City HospitalConsent for Treatmenton 02-04-9366Arcawov for Treatment [id number]#1.00CD:127NormZanesville City HospitalIntraOperative Documentson 43-23-2999ObaosXpgyxtdsu Documents [id number]#1.00CD:127NormZanesville City HospitalMain OR Intraoperative Recordon 21-87-7926Vpvu OR Intraoperative Record IntraOp Document Type FTURO Summary Primary Physician: Cali DUGGAN MD Finalized Date/Time: 07/11/22 08:19:46 Pt. Name: JORDI HUERTA/Sex: 1975 Male Med Rec #: [id number] Physician: Cali DUGGAN MD Financial #: [id number] Pt. Type: O Room/Bed: / Admit/Disch: 07/11/22 07:21:28 - Institution: Case Times FTURO Entry 1 Patient Times In Room 07/11/22 08:13:00 Out Room 07/11/22 08:23:00 Procedure Times Start 07/11/22 08:14:00 Stop 07/11/22 08:20:00 Anesthesia Times Last Modified By: Ok STRONG, CJOR, Michelle 07/11/22 08:19:28 Case Attendance FTURO Entry 1 Entry 2 Entry 3 Case Attendee Cali DUGGAN MD [facility], Brittany Euceda RN, CJOR, Michelle Role Performed Surgeon - Primary Scrub - Primary Inspector Final Assembly Conveyor Line - Primary Time In 07/11/22 08:13:00 07/11/22 08:13:00 07/11/22 08:13:00 Time Out 07/11/22 08:23:00 07/11/22 08:23:00 07/11/22 08:23:00 Procedure CYSTOSCOPY LOCAL(.) CYSTOSCOPY LOCAL(.) CYSTOSCOPY LOCAL(.) Comments Last Modified By: Ok RN, CNOR, Ok STRONG, CJOR, Ok STRONG, CJOR, Michelle 07/11/22 Michelle 07/11/22 Michelle 07/11/22 08:19:30 08:19:30 08:19:30 Surgical Procedures FTURO Entry 1 Procedure Description Procedure CYSTOSCOPY LOCAL Modifiers . Surgeon Description cysto Primary Procedure Yes Primary Surgeon Cali DUGGAN MD Start 07/11/22 08:14:00 Stop 07/11/22 08:20:00 Anesthesia Type Local Surgical Service Urology Wound Class 2 - Clean-Contaminated Last Modified By: Ok STRONG, CJOR, Michelle 07/11/22 08:19:32 General Case Data FTURO Pre-Care Text: Classifies surgical wound, implements aseptic technique, initiates traffic control Entry 1 Case Information OR URO 1 FT Case Level None Wound Class 2 - Clean-Contaminated Specialty Urology Preop Diagnosis MICROHEMATURIA Postop Same As Preop No Postop Diagnosis bladder diverticulum Outcomes Met? Yes Last Modified By: SIMBA Euceda RN, Ruthann 07/11/22 08:18:11 Post-Care Text: The patient is free from signs and symptoms of infection EU IntraOp - FTURO Pre-Care Text: Implements protective measures prior to operative or invasive procedure, confirms identity before the operative or invasive procedure, verifies operative procedure, surgical site, and laterality Entry 1 EU Perioperative Protocols Procedure(s) CYSTOSCOPY LOCAL(.) Patient Identity Birthday, ID Band Verified (select at Check, Patient least 2): Participation Consents / H and P HandP, Surgery/Procedure Operative Site N/A Verified Consent Marking Verified Surgical Site Yes Laterality Verified n/a Verified Procedure Verified Yes Correct Patient Yes Position Verified Availability Equipment, Medication Time Out URBAN JASSO, Cali Youssef, Verified (If Participants Brittany Headley CST Applicable) Ok Hdez RN, CNOR, Ruthann Time Out Complete 07/11/22 08:14:00 Allergies Reviewed? Yes Allergies Reviewed Self/Patient With Body Position Supine Prep Area penis Prep Agents Betadine Solution Skin. Condition Unable to Visualize Additional None Specimens Collected Vitals - EU Blood Pressure 130/84 Pulse 95 bpm Respirations SPO2 EBL 0 IandO - EU Total Intake 0 mL Total Output 0 mL Outcomes Met? Yes Last Modified By: SIMBA Euceda RN, Ruthann 07/11/22 08:16:48 Post-Care Text: The patient is free from signs and symptoms of injury caused by extraneous objects Sign Out FTURO Entry 1 Before Patient Leaves OR Nurse verbally Yes Nurse verbally n/a confirms with the confirms with the team the name of team that the procedure(s) instrument, sponge, recorded and needle counts are correct (or N/A) Nurse verbally n/a Nurse verbally n/a confirms with the confirms with the team how the team whether there specimen is labeled are any equipment (including patient problems to be name), if applicable addressed Sign Out Complete 07/11/22 08:22:00 Last Modified By: SIMBA Euceda RN, Ruthann 07/11/22 08:19:44 Case Comments Finalized By: SIMBA Euceda RN, Ruthann Document Signatures Signed By: SIMBA Euceda RN, Ruthann 07/11/22 08:19NormZanesville City HospitalMain OR Preoperative Recordon 37-44-2997Wrhr OR Preoperative RecordHolding Area Document Type FTURO Summary Primary Physician: Cali DUGGAN MD Finalized Date/Time: 07/11/22 07:42:53 Pt. Name: JORDI HUERTA/Sex: 1975 Male Med Rec #: [id number] Physician: Cali DUGGAN MD Financial #: [id number] Pt. Type: O Room/Bed: / Admit/Disch: 07/11/22 07:21:28 - Institution: Case Times Holding FTURO Pre-Care Text: Verifies consent for planned procedure, identifies individual values and wishes concerning care, includes family members in perioperative teaching Secures patient's records' belongings, and valuables, maintains patient's dignity and privacy, and maintains patient confidentiality Entry 1 In Holding 07/11/22 07:30:00 Outcomes Met? Yes Last Modified By: Marjorie Payne LPN 07/11/22 07:31:00 Post-Care Text: The patient participates in decisions affecting his or her perioperative plan of care The patient'sright to privacy is maintained Surgery Checklist FTURO Entry 1 Patient Birthday, Patient Procedure History and Physical, Identification: Participation Verification: Surgical Consent, With Patient NPO after Midnight: No Date/Time: 07/11/22 07:31:00 Personal Items clothes Limitations: na Comment: Complaints of Pain: No Pain Comment: na Skin Integrity Intact, [place], Warm, & Dry Vitals - EU Blood Pressure 130/84 Pulse 95 bpm Respirations 18 br/min SPO2 98 % RN Reviewed Yes Last Modified By: SIMBA Euceda RN, Ruthann 07/11/22 07:42:51 General Comments: temp:36.8 Finalized By: SIMBA Euceda RN, Ruthann Document Signatures Signed By: Marjorie Payne LPN 07/11/22 07:34 Marjorie Payne LPN 07/11/22 07:35 SIMBA Euceda RN, Ruthann 07/11/22 07:42NoHol[facility] Operative Reporton [id number] ReportPatient: JORDI HUERTA Age: 46 years Sex: Male : 1975 Associated Diagnoses: None Author: Cali DUGGAN MD Procedure Operative Information Details: Date/ Time: 07/11/2022 08:21:00. Pre-Op Dx: Micro Hematuria - Asymptomatic - R31.21. Post-Op Dx: Same. Anesthesia Type: Local. Procedure: Local Cystoscopy. Complications: None. Risks/Benefits/Informed Consent: Surgical risks, benefits, details of the procedure have been explained to the patient, Full informed consent has been obtained. Intraoperative Information Prepped: Patient is brought back to the endoscopy suite, Patient is placed in supine position, Patient prepped in the usual fashion with Betadine solution, 2% Xylocaine Jelly is placed per Urethra, After waiting several minutes the Cystoscope is introduced. The Urethra is: Normal. The Prostatic Urethra is: Obstructed, Short. Minimal median lobe enlargement. The Bladder is: Trabeculated No bladder tumors. Mild trabeculation. 1 open diverticulum on the leftwall.. The ureteral orifices: Show efflux of clear urine. Devices Implanted: None. Removal: Cystoscope is removed, The patient tolerated it well. Postoperative Information Discharge: Patient is discharged home with antibiotic coverage, Follow up arranged.[facility] CenterComment on above:Result Comment: Electronically Signed By: Cali DUGGAN MD\.br\Date and Time Signed: 07/11/22 08:22 EDTLab Reportson [id number] Reports [id number]:127[facility] CenterFormson 06-68-8237Xsolu [id number]#1.00CD:[address] [place], [place] [address]Physician Referralon 31-64-1874Kbmahgsno Referral [id number]:127[facility] CenterAmbulatory Visit Summaryon 28-13-4462Bdzgoepibd Visit Summary JORDI HUERTA :1975 Visit Date:06/16/2022 Ambulatory Visit Instructions Your Diagnosis Asymptomatic microscopic hematuria Polycystic kidney disease Tests Performed Urnls Dip Stick Auto w/o Microscopy POC 17050 Your Care Team Attending Physician - Cali DUGGAN MD Primary Care Physician - JOE JAUREGUI DO Referring Physician - JOE JAUREGUI DO This Is Your Medications List Contact prescribing physician if questions or concerns allopurinol (allopurinol 100 mg Tab) amlodipine (Norvasc 10 mg Tab) calcitriol (calcitriol 0.5 mcg oral capsule) furosemide (furosemide 40 mg Tab) hydrochlorothiazide-valsartan (Diovan HCT 320 mg-25 mg oral tablet) hydrochlorothiazide-valsartan (hydrochlorothiazide-valsartan 25 mg-320 mg oral tablet) pantoprazole (Pantoprazole [address] Tab) potassium chloride (potassium chloride 10 mEq Cap-ER) sertraline (sertraline 50 mg Tab) Procedures Performed EGD (esophagogastroduodenoscopy) gastric outlet reduction (04/02/2014), excision dorsal mass, left hand (11/13/2013), Umbilical hernia (04/02/2013), Umbilical hernia (04/02/2011), Hand, Hernia. Discharge Vitals Blood Pressure 130/90 Height 175 cm Height 69 in Weight 104.5 kg Weight 229.9 lb BMI 34.12 What to do next You Need to Schedule the Following Appointments Follow Up with URBAN JASSO, Cali Youssef, TAIWO When: Where: [address] [place] [address]- Medications What How Much When Instructions Unchanged allopurinol (allopurinol 100 mg Tab) 1 Tablets By Mouth Every day Contact prescribing physician if questions or concerns Unchanged amlodipine (Norvasc 10 mg Tab) 1 Tablets By Mouth Every day Contact prescribing physicianif questions or concerns Unchanged calcitriol (calcitriol 0.5 mcg oral capsule) Contact prescribing physician if questions or concerns Unchanged furosemide (furosemide 40 mg Tab) Contact prescribing physician if questions or concerns Unchanged hydrochlorothiazide-valsartan (Diovan HCT 320 mg-25 mg oral tablet) 1 Tablets By Mouth Every day Contact prescribing physician if questions or concerns Unchanged hydrochlorothiazide-valsartan (hydrochlorothiazide-valsartan 25 mg-320 mg oral tablet) Contact prescribing physician if questions or concerns Unchanged pantoprazole (Pantoprazole [address] Tab) Contact prescribing physician if questions or concerns Unchanged potassium chloride (potassium chloride 10 mEq Cap-ER) 1 Capsules By Mouth Every day Contact prescribing physician if questions or concerns Unchanged sertraline (sertraline 50 mg Tab) Contact prescribing physician if questions or concerns Test Results Urnls Dip Stick Auto w/o Microscopy POC 05018 (06/16/2022) Bilirubin Urine Dipstick - Negative Blood Urine Dipstick - Trace-intact Glucose Urine Dipstick - Negative Ketones Urine Dipstick - Negative Leukocytes Urine Dipstick - 2+ Moderate Nitrite Urine Dipstick - Negative Protein Urine Dipstick - 2+ (100 mg/dl) Specific [place] Urine Dipstick - 1.020 Urine Appearance Urine Dipstick - Clear Urine Color Urine Dipstick - Yellow Urobilinogen Urine Dipstick - Normal 0.2-1 EU/dl pH Urine Dipstick - 6 Allergies Escitalopram Oxalate (Unknown) amoxicillin (Nausea) Problems Ongoing - Any problem that you are currently receiving treatment for. 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 Blood may be visible in the urine, or it may be identified with a test. This condition can be caused by infections of the bladder, urethra, kidney, or prostate. Otherpossible causes include: ? Kidney stones. ? Cancer of the urinary tract. ? Too much calcium in the urine. ? Conditions that are passed from parent to child (inherited conditions). ? Exercise that requires a lot of energy. Infections can usually be treated with medicine, and a kidney stone usually will pass through your urine. If neither of these is the cause of your hematuria, more tests may be needed to identify the cause of your symptoms. It is very important to tell your health care provider about any blood in your urine, even if it ispainless or the blood stops wit (more content not included)...[facility] Educationon 06-16-2022 Patient EducationUrology Hematuria, Adult Hematuria is blood in the urine. Blood may be visible in the urine, or it may be identified with a test. This condition can be caused by infections of the bladder, urethra, kidney, or prostate. Otherpossible causes include: ? Kidney stones. ? Cancer of the urinary tract. ? Too much calcium in the urine. ? Conditions that are passed from parent to child (inherited conditions). ? Exercise that requires a lot of energy. Infections can usually be treated with medicine, and a kidney stone usually will pass through your urine. If neither of these is the cause of your hematuria, more tests may be needed to identify the cause of your symptoms. It is very important to tell your health care provider about any blood in your urine, even if it ispainless or the blood stops without treatment. Blood in the urine, when it happens and then stops and then happens again, can be a symptom of a very serious condition, including cancer. There is no pain in the initial stages of many urinary cancers. Follow these instructions at home: Medicines ? Take fctd-icv-bzlktoh and prescription medicines only as told by your health care provider. ? If you were prescribed an antibiotic medicine, take it as told by your health care provider. Do not stop taking the antibiotic even if you start to feel better. Eating and drinking ? Drink enough fluid to keep your urine clear or pale yellow. It is recommended that you drink 3?4 quarts (2.8?3.8 L) a day. If you have been diagnosed with an infection, it is recommended that you drink cranberry juice in addition to large amounts of water. ? Avoid caffeine, tea, and carbonated beverages. These tend to irritate the bladder. ? Avoid alcohol because it may irritate the prostate (men). General instructions ? If you have been diagnosed with a kidney stone, follow your health care provider's instructions about straining your urine to catch the stone. ? Empty your bladder often. Avoid holding urine for long periods of time. ? If you are female: ? After a bowel movement, wipe from front to back and use each piece of toilet paper only once. ? Empty your bladder before and after sex. ? Pay attention to any changes in your symptoms. Tell your health care provider about any changes or any new symptoms. ? It is your responsibility to get your test results. Ask your health care provider, or the department performing the test, when your results will be ready. ? Keep all follow-up visits as told by your health care provider. This is important. Contact a health care provider if: ? You develop back pain. ? You have a fever. ? You have nausea or vomiting. ? Your symptoms do not improve after 3 days. ? Your symptoms get worse. Get help right away if: ? You develop severe vomiting and are unable take medicine without vomiting. ? You develop severe pain in your back or abdomen even though you are taking medicine. ? You pass a large amount of blood in your urine. ? You pass blood clots in your urine. ? You feel very weak or like you might faint. ? You faint. Summary ? Hematuria is blood in the urine. It has many possible causes. ? It is very important that you tell your health care provider about any blood in your urine, even if it is painless or the blood stops without treatment. ? Take pcdg-dkd-btxprdo and prescription medicines only as told by your health care provider. ? Drink enough fluid to keep your urine clear or pale yellow. This information is not intended to replace advice given to you by your health care provider. Make sure you discuss any questions you have with your health care provider. Document Released: 03/19/2006 Document Revised: 08/13/2019 Document Reviewed: 04/21/2017 [employer] Patient Education ? 2019 [employer].[facility] Pre-Certification Formon 72-22-2369Hzx-Certification Form [id number]:127NoHol[facility] – JacksonUrology Office/Clinic Noteon 63-27-1619Dckehvf Office/Clinic NoteChief Complaint new patient HPI Staff Evaluation requested by Dr Joe Jauregui due to micro hematuria. Pt is a new pt, never before seen in our office. (Verified on [employer]) CT a/p done 06/13/22 PSA done 06/13/22- 1.1 UA 06/13/22 Testosterone 06/13/22 523 (220-1000) CMp & CBC 06/13/22 Patient states that he recently started doing dialysis 3x a week, and is in the process of a kidneytransplant. Dysuria: mild burning a few weeks ago but did not last very long Incomplete bladder emptying: no Hematuria: denies any gross hematuria, UA shows trace-intact Frequency: no Urgency: no Nocturia: no Stream: good stream Leaking: no Post void dripping: no Wearing pads/ Depends: no Urge incontinence: no Stress incontinence: no Incontinence without Sensory Awareness: no Abdominal pain: no Flank pain: no Sexual complaints: no History of Present Illness Tests reviewed: Reviewed UA & referral records. I have reviewed the previous health record information and history for this patient from Dr. Duggan. I have reviewed and verified the staff HPI to be accurate for this encounter. There have been no associated fever, chills, flank pain, or blood in the urine. Denies any urinary infections since last encounter. Review of Systems PHQ Score Initial Depression Screen Score: 0 ROS - Provider Constitutional: denies weight loss, denies hot flashes. Eyes: denies eye problems. Gastrointestinal: denies nausea, denies vomiting. Cardiovascular: denies chest pain or angina. Integumentary: no dryness Musculoskeletal: denies musculoskeletal symptoms. ENMT: denies otolaryngeal symptoms. Respiratory: no shortness of breath. Heme/Lymph: denies easy bleeding tendency, denies easy bruising tendency. Psychiatric: no confusion, no anxiety. Genitourinary: denies dysuria, denies hematuria, denies discharge, denies urinary frequency, deniesurinary hesitancy, denies nocturia, denies incontinence, denies genital sores, denies decreased libido, and denies erectile dysfunction. Physical Exam Vitals & Measurements BP: 130/90 HT: 69 in HT: 175 cm WT: 104.5 kg WT: 229.9 lb BMI: 34.12 General Appearance: alert, no distress, well nourished, well developed male. Head: normocephalic . Eyes: normal orbit and globe. ENMT: normal examination of external ears. Chest: Lungs CTA, respirations non labored. Cardiovascular: regular rate and rhythm. Abdomen: soft, non distended, no tenderness, no mass or organomegaly, no hernia. Genitourinary: normal scrotum, normal testes, normal urethra, normal epididymis, normal vas deferens/spermatic cord. Flank Pain: none. Bladder: nonpalpable. Penis: normal shaft, normal glans. Lymph Nodes: unremarkable palpation of the cervical area. Skin: warm, dry, no bruising. Psychiatric: cooperative, affect appropriate for age, normal judgement, euthymic mood. Assessment/Plan PSA 1.1, testosterone 523, 108.7 all drawn 06/13/22. 1. Asymptomatic microscopic hematuria (R31.21: Asymptomatic microscopic hematuria) New patient referred by Dr. Jauregui for microscopic hematuria. Denies gross hematuria. CT AP w/o renal recipient 06/13/22 neg for abnormalities. UA 06/13/22 neg for RBC (0-2). Pt. shares at the time of urinalysis, he was experiencing burning but was not treated for infection. Discussed with patient that polycystic kidney disease can cause microscopic hematuria. UA today neg for microscopic blood. Discussed options. The patient is aware that a distinct etiology of the hematuria may not be clear upon conclusion of the workup. Will initiate hematuria workup to include evaluation of the urinary cells with urine cytology and possible a FISH test. A cystoscopy will be scheduled to rule out lower u rinary tract pathology. The rationale for this workup has been discussed, and all questions have been answered. Informed consent will be obtained. Prophylactic antibiotics will be given. Will schedule Cysto/FISH/cytology. The risks and benefits for cystoscopy have been discussed. The risks include bleeding, infection, and irritation of the bladder and urinary channel, among others. The patient, after being informed of procedural details and after questions have been answered, wishes to proceed. Full informed consent has been obtained. Will order Local anesthesia. Cipro sent to [facility]. 2. Polycystic kidney disease (Q61.3: Polycystic kidney, unspecified) Diffuse bilateral renal cysts, some hyperattenuating suggesting hemorrhagic cyst, compatible with polycystic kidney disease. Patient shares he recently started dialysis 3x/week, and is in the processof a kidney transplant. Follow-up With When Contact Information URBAN JASSO, Cali Youssef, [place] [address] [place] [address]- Additional Instructions: Schedule Cysto Patient Education Hematuria, Adult I, Joanna He, personally scribed for Dr. Duggan on 06/16/2022 10:38:57. (more content not included)...[facility] CenterComment on above:Result Comment: Electronically Signed By: Cali DUGGAN MD\.br\Date and Time Signed: 06/16/22 10:49 EDT\.br\Electronically Co-Signed By: Joanna He.br\Date and Time Co-Signed: 06/16/2309:39 EDTXR chest 2V*on 50-66-7861UU chest 2V*[facility] [place] [address] [place] [address] XRay Report Signed Patient: Jordi Huerta MR#: [id number] 8 : 1975 Acct:[id number] Age/Sex: 46 / M ADM Date: 06/09/22 Loc: XD Room: Type: [facility] Attending Dr: Elisa Garcia MD Copies to: Elisa Garcia MD Ordering Provider: Elisa Garcia MD Date of Service: 06/09/22 XR/XR chest 2V*: Q61.2, N18.2 Plain film chest2 view HISTORY:Starting dialysis. Hypertension. COMPARISON:None FINDINGS: The cardiac, mediastinal and hilar silhouettes are within normal limits. No acute lung process, pleural effusion or pneumothorax identified. Bony structures are intact. XR/XR chest 2V* IMPRESSION: No acute process. Impression dictated by: Joe Panda M.D.06/09/2022 9:54 AM Dictation Location: [place] [address] Transcribed By: [facility] 06/09/22 0954 Dictated By: Joe Panda DO 06/09/22 0928 Signed By: 06/09/[address] HospitalHep C Ab wRfx to Qnt PCRon 41-13-0649Dqqxvaopo C Virus AntibodyNon-ReactiveNormalNon ReactiveUniversity Hospitals Conneaut Medical CenterComment on above:Performed By: #### HBSAG, HCV RX PCR #### [facility] ,Interpretation Hepatitis CNormal.[facility] Conneaut Medical CenterComment on above:Result Comment: Not infected with HCV unless early or acute infection is suspected (which may be delayed in an immunocompromised individual), or other evidence exists to indicate HCV infection.Performed By: #### HBSAG, HCV RX PCR #### [facility] ,Hepatitis B Surface Antigenon 39-26-4337SMvJx ScreenNegativeNormalNegative [facility] Conneaut Medical CenterComment on above:Result Comment: Performed at: [address] [id number] [employer] Wood: Minor Baugh PhD, Phone: [phone] PERFORMED BY: [address] [place] [address] PATHOLOGIST CLINICAL LAB SCIENTIST SUSANNE BEE M.D.Performed By: #### HBSAG, HCV RX PCR #### [facility] ,Hepatitis B virus surface Ag [Presence] in Serum or Plasma by Immunoassay Ordered By: Elisa Garcia on 82-68-8135OXS surface Ag IA QlNegativeNegative [facility] Medical CenterComment on above:Performed at: [address] [id number] Director: Minor Baugh PhD, Phone: [phone] C virus IgG Ab [Presence] in Serum or Plasma by ImmunoassayOrdered By: Elisa Garcia on 82-38-5178QHL IgG IA QlNon-ReactiveNon ReactiveUniversity Hospitals Conneaut Medical CenterNo Panel InformationOrdered By: Elisa Garcia on 98-51-1077Okmzvvbwc C InterpretationSee comment.[facility] Medical CenterComment on above:Not infected with HCV unless early or acute infection issuspected (which may be delayed in an immunocompromisedindividual), or other evidence exists to indicate HCVinfection.Hepatitis C RNA Quantitative N/AFParma Community General HospitalAlanine aminotransferase [Enzymatic activity/volume] in Serum or PlasmaOrdered By: Elisa Garcia on 94-13-0806EUR [Catalytic activity/Vol]10 U/L7-52[facility] Medical CenterAlbumin [Mass/volume] in Serum or Plasma by Bromocresol green (BCG) dye binding metho Ordered By: Elisa Garcia on 30-74-8481Mjtteab BCG dye [Mass/Vol]4.5 g/dL3.5-5.7 [facility] Medical CenterAlkaline phosphatase [Enzymatic activity/volume] in Serum or PlasmaOrdered By: Elisa Garcia on 63-40-4854LNX [Catalytic activity/Vol]90 U/Q39-521AudqtmgzfUniversity Hospitals Conneaut Medical CenterAspartate aminotransferase [Enzymatic activity/volume] in Serum or PlasmaOrdered By: Elisa Garcia on 81-08-1020TYH [Catalytic activity/Vol]14 U/F06-96QtnwmqbeeUniversity Hospitals Conneaut Medical CenterAutomated erythrocytes count in urine sediment (number/area) Ordered By: Elisa Garcia on 97-32-9024MCM Auto (Urine sed) [#/Area]0-1 [HPF]0-4 [facility] Medical CenterAutomated leukocytes count in urine sediment (number/area)Ordered By: Elisa Garcia on 89-95-5545EQG Auto (Urine sed) [#/Area] 0-1 [HPF]0-4FParma Community General HospitalBilirubin Test strip Ql (U)Ordered By: Elisa Garcia on 24-14-5767Grgpvreua Ql (U)NegativeNegativeUniversity Hospitals Conneaut Medical CenterBilirubin.total [Mass/volume] in Serum or PlasmaOrdered By: Elisa Garcia 65-09-7825Wewuqrsld [Mass/Vol]0.4 mg/dL0.3-1.0[facility] Medical CenterCalcium [Mass/volume] in Serum or PlasmaOrdered By: Elisa Garcia 60-61-0175Cfnyqsd [Mass/Vol]9.5 mg/dL8.6-10.3FParma Community General HospitalCarbon dioxide, total [Moles/volume] in Serum or PlasmaOrdered By: Elisa Garcia on 42-96-6166PJ6 [Moles/Vol]22.1 mmol/L21.0-31.0[facility] Medical CenterChloride [Moles/volume] in Serum or PlasmaOrdered By: Elisa Garcia on 76-05-9467Xkcxphit [Moles/Vol]105 mmol/Y65-388ZzaitzddzUniversity Hospitals Conneaut Medical CenterColor Auto (U)Ordered By: Elisa Garcia on 50-03-1087Lxrri (U)YellowMccullough-Hyde Memorial HospitalComprehensive Metabolic Panelon 06-06-2022 Albumin [Mass/Vol]4.5 g/dLNormal3.5-5.7FParma Community General HospitalComment on above:Order Comment: Reason for Exam CKD (chronic kidney disease) stage 4, GFR 15-29 ml/min;ADPKDPerformed By: #### HBSAG, HCV RX PCR #### [facility] ,Albumin/Globulin [Mass ratio]1.9 {ratio}NormalUniversity Hospitals Conneaut Medical Center Comment on above:Order Comment: Reason for Exam CKD (chronic kidney disease) stage 4, GFR 15-29 ml/min;ADPKDPerformed By: #### HBSAG, HCV RX PCR #### [facility] ,ALP [Catalytic activity/Vol]90 U/RDheayc41-537JrxexynigUniversity Hospitals Conneaut Medical Center Comment on above:Order Comment: Reason for Exam CKD (chronic kidney disease) stage 4, GFR 15-29 ml/min;ADPKDPerformed By: #### HBSAG, HCV RX PCR #### [facility] ,ALT [Catalytic activity/Vol]10 U/LNormal7-52[facility] Comment on above:Order Comment: Reason for Exam CKD (chronic kidney disease) stage 4, GFR 15-29 ml/min;ADPKDPerformed By: #### HBSAG, HCV RX PCR #### [facility] ,Anion gap [Moles/Vol]16.6 mmol/LHigh6.0-15.0[facility] Comment on above:Order Comment: Reason for Exam CKD (chronic kidney disease) stage 4, GFR 15-29 ml/min;ADPKDPerformed By: #### HBSAG, HCV RX PCR #### [facility] ,AST [Catalytic activity/Vol]14 U/OXnicys86-68LhvulyebyUniversity Hospitals Conneaut Medical Center Comment on above:Order Comment: Reason for Exam CKD (chronic kidney disease) stage 4, GFR 15-29 ml/min;ADPKDPerformed By: #### HBSAG, HCV RX PCR #### [facility] ,Bilirubin [Mass/Vol]0.4 mg/dLNormal0.3-1.0[facility] Comment on above:Order Comment: Reason for Exam CKD (chronic kidney disease) stage 4, GFR 15-29 ml/min;ADPKDPerformed By: #### HBSAG, HCV RX PCR #### [facility] ,Calcium [Mass/Vol]9.5 mg/dLNormal8.6-10.3FParma Community General Hospital Comment on above:Order Comment: Reason for Exam CKD (chronic kidney disease) stage 4, GFR 15-29 ml/min;ADPKDPerformed By: #### HBSAG, HCV RX PCR #### [facility] ,Chloride [Moles/Vol]105 mmol/NKngefp54-531IglgfwwbsUniversity Hospitals Conneaut Medical Center Comment on above:Order Comment: Reason for Exam CKD (chronic kidney disease) stage 4, GFR 15-29 ml/min;ADPKDPerformed By: #### HBSAG, HCV RX PCR #### [facility] ,CO2 [Moles/Vol]22.1 mmol/MKbdrph92.0-31.0[facility] Comment on above:Order Comment: Reason for Exam CKD (chronic kidney disease) stage 4, GFR 15-29 ml/min;ADPKDPerformed By: #### HBSAG, HCV RX PCR #### [facility] ,Creatinine [Mass/Vol]6.64 mg/dLHigh0.70-1.30[facility] Comment on above:Order Comment: Reason for Exam CKD (chronic kidney disease) stage 4, GFR 15-29 ml/min;ADPKDPerformed By: #### HBSAG, HCV RX PCR #### [facility] ,GFR/1.73 sq M.predicted MDRD (S/P/Bld) [Vol rate/Area]9.816 mL/min/{1.73_m2} [facility] CenterComment on above:Order Comment: Reason for Exam CKD (chronic kidney disease) stage 4, GFR 15-29 ml/min;ADPKDPerformed By: #### HBSAG, HCV RX PCR #### [facility] ,Globulin (S) [Mass/Vol]2.4 g/dLNoWilson Street HospitalComment on above:Order Comment: Reason for Exam CKD (chronic kidney disease) stage 4, GFR 15-29 ml/min;ADPKDPerformed By: #### HBSAG, HCV RX PCR #### [facility] ,Glucose [Mass/Vol]83 mg/ySHcadoy70-594XpsrxldckUniversity Hospitals Conneaut Medical CenterComment on above:Order Comment: Reason for Exam CKD (chronic kidney disease) stage 4, GFR 15-29 ml/min;ADPKDResult Comment: Random Glucose Reference Range is dependent on time and content of last meal. Glucose of more than 200 mg/dL in a nonstressed, ambulatory subject supports the diagnosis of Diabetes Mellitus. ADA recommended reference rangePerformed By: #### HBSAG, HCV RX PCR #### [facility] ,Potassium [Moles/Vol]3.7 mmol/LNormal3.5-5.1FParma Community General Hospital Comment on above:Order Comment: Reason for Exam CKD (chronic kidney disease) stage 4, GFR 15-29 ml/min;ADPKDPerformed By: #### HBSAG, HCV RX PCR #### [facility] ,Protein [Mass/Vol]6.9 g/dLNonovant health [facility]6.4-8.9[facility] Medical CenterComment on above:Order Comment: Reason for Exam CKD (chronic kidney disease) stage 4, GFR 15-29 ml/min;ADPKDPerformed By: #### HBSAG, HCV RX PCR #### [facility] ,Sodium [Moles/Vol]140 mmol/QJnyebq480-092MjfbvvzsvUniversity Hospitals Conneaut Medical Center Comment on above:Order Comment: Reason for Exam CKD (chronic kidney disease) stage 4, GFR 15-29 ml/min;ADPKDPerformed By: #### HBSAG, HCV RX PCR #### [facility] ,Urea nitrogen [Mass/Vol]61 mg/dLSt. Mary'S Medical Center7-25[facility] Comment on above:Order Comment: Reason for Exam CKD (chronic kidney disease) stage 4, GFR 15-29 ml/min;ADPKDPerformed By: #### HBSAG, HCV RX PCR #### [facility] ,Creatinine [Mass/volume] in Serum or PlasmaOrdered By: Elisa Garcia on 71-51-9323Bjsgzbijle [Mass/Vol]6.64 mg/dL0.70-1.30[facility] Medical CenterDipstick and Microscopicon 93-10-0289Rmuxrhukoa (U)ClearNormalClear [facility] CenterComment on above:Order Comment: Reason for Exam CKD (chronic kidney disease) stage 4, GFR 15-29 ml/min;ADPKD Name Collection Type:: Clean-Voided MidstreamPerformed By: #### HBSAG, HCV RX PCR #### [facility] ,Bacteria,UrineNone SeenNormalNone SeenUniversity Hospitals Conneaut Medical CenterComment on above:Order Comment: Reason for Exam CKD (chronic kidney disease) stage 4, GFR 15-29 ml/min;ADPKD Name Collection Type:: Clean-Voided MidstreamPerformed By: #### HBSAG, HCV RX PCR #### [facility] ,Bilirubin,UrineNegativeNormorNegativeUniversity Hospitals Conneaut Medical CenterComment on above:Order Comment: Reason for Exam CKD (chronic kidney disease) stage 4, GFR 15-29 ml/min;ADPKD Name Collection Type:: Clean-Voided MidstreamPerformed By: #### HBSAG, HCV RX PCR #### [facility] ,Color (U)YellowNormalYellowUniversity Hospitals Conneaut Medical CenterComment on above: Order Comment: Reason for Exam CKD (chronic kidney disease) stage 4, GFR 15-29 ml/min;ADPKD Name Collection Type:: Clean-Voided MidstreamPerformed By: #### HBSAG, HCV RX PCR #### [facility] ,Glucose Ql (U)NormalNormalNormDoctors HospitalComment on above:Order Comment: Reason for Exam CKD (chronic kidney disease) stage 4, GFR 15-29 ml/min;ADPKD Name Collection Type:: Clean-Voided MidstreamPerformed By: #### HBSAG, HCV RX PCR #### [facility] ,Hyaline Casts,UrineNone SeenNormal0-8[facility] CenterComment on above:Order Comment: Reason for Exam CKD (chronic kidney disease) stage 4, GFR 15-29 ml/min;ADPKD Name Collection Type:: Clean-Voided MidstreamResult Comment: PERFORMED BY: [address] [place] [address] PATHOLOGIST CLINICAL LAB SCIENTIST SUSANNE BEE M.D.Performed By: #### HBSAG, HCV RX PCR #### [facility] ,Ketones Ql (U)NegativeNormalNegMercy Health St. Elizabeth Boardman HospitalComment on above:Order Comment: Reason for Exam CKD (chronic kidney disease) stage 4, GFR 15-29 ml/min;ADPKD Name Collection Type:: Clean-Voided MidstreamPerformed By: #### HBSAG, HCV RX PCR #### [facility] ,Leukocyte esterase Test strip Ql (U)NegativeNormThe MetroHealth SystemComment on above:Order Comment: Reason for Exam CKD (chronic kidney disease) stage 4, GFR 15-29 ml/min;ADPKD Name Collection Type:: Clean- Voided MidstreamPerformed By: #### HBSAG, HCV RX PCR #### [facility] ,Nitrite,UrineNegativeNormalNegMercy Health St. Elizabeth Boardman HospitalComment on above:Order Comment: Reason for Exam CKD (chronic kidney disease) stage 4, GFR 15-29 ml/min;ADPKD Name Collection Type:: Clean-Voided MidstreamPerformed By: #### HBSAG, HCV RX PCR #### [facility] ,Occult Blood,UrineTraceHighNegMercy Health St. Elizabeth Boardman HospitalComment on above:Order Comment: Reason for Exam CKD (chronic kidney disease) stage 4, GFR 15-29 ml/min;ADPKD Name Collection Type:: Clean-Voided MidstreamResult Comment: PERFORMED BY: [facility] [place] [address] PATHOLOGIST CLINICAL LAB SCIENTIST SUSANNE BEE M.D.Performed By: #### HBSAG, HCV RX PCR #### [facility] ,pH (U)6.0 [pH]Normal5.0-9.0[facility] CenterComment on above: Order Comment: Reason for Exam CKD (chronic kidney disease) stage 4, GFR 15-29 ml/min;ADPKD Name Collection Type:: Clean-Voided MidstreamPerformed By: #### HBSAG, HCV RX PCR #### [facility] ,Protein (U) [Mass/Vol]30 mg/dLHighNegativeUniversity [facility]als [facility] Comment on above:Order Comment: Reason for Exam CKD (chronic kidney disease) stage 4, GFR 15-29 ml/min;ADPKD Name Collection Type:: Clean-Voided Midstream Performed By: #### HBSAG, HCV RX PCR #### [facility] ,RBC LM.HPF (Urine sed) [#/Area]0 /[HPF]Normal0-4FParma Community General HospitalComment on above:Order Comment: Reason for Exam CKD (chronic kidney disease) stage 4, GFR 15-29 ml/min;ADPKD Name Collection Type:: Clean-Voided MidstreamPerformed By: #### HBSAG, HCV RX PCR #### [facility] ,Specificy [place],Urine1.858Mggvhb7.001-1.030[facility] Comment on above:Order Comment: Reason for Exam CKD (chronic kidney disease) stage 4, GFR 15-29 ml/min;ADPKD Name Collection Type:: Clean-Voided Midstream Performed By: #### HBSAG, HCV RX PCR #### [facility] ,Squamous Epithelial Cell,UrineNone SeenNormal0-2FParma Community General HospitalComment on above:Order Comment: Reason for Exam CKD (chronic kidney disease) stage 4, GFR 15-29 ml/min;ADPKD Name Collection Type:: Clean-Voided MidstreamPerformed By: #### HBSAG, HCV RX PCR #### [facility] ,Urobilinogen,UrineNormalNormalNormalUniversity Hospitals Conneaut Medical CenterComment on above:Order Comment: Reason for Exam CKD (chronic kidney disease) stage 4, GFR 15-29 ml/min;ADPKD Name Collection Type:: Clean-Voided MidstreamPerformed By: #### HBSAG, HCV RX PCR #### [facility] ,WBC LM.HPF (Urine sed) [#/Area]0 /[HPF]Normal0-4FParma Community General HospitalComment on above:Order Comment: Reason for Exam CKD (chronic kidney disease) stage 4, GFR 15-29 ml/min;ADPKD Name Collection Type:: Clean-Voided MidstreamPerformed By: #### HBSAG, HCV RX PCR #### [facility] ,Erythrocyte distribution width Auto (RBC) [Ratio]Ordered By: Elisa Garcia on 60-02-4710Ytytgjzpqmh distribution width (RBC) [Ratio]14.3 %12.0-14.8[facility] Medical CenterGlobulin Calc (S) [Mass/Vol]Ordered By: Elisa Garcia on 18-04-3464Gbdozqfd (S) [Mass/Vol]2.4 g/dLUniversity Hospitals Conneaut Medical Center Glucose [Mass/volume] in Serum or PlasmaOrdered By: Elisa Garcia on 06-06-2022 Glucose [Mass/Vol]83 mg/gP79-844UalgcwbghUniversity Hospitals Conneaut Medical CenterComment on above:ADA recommended reference rangeRandom Glucose Reference Range is dependent on time and content of last meal. Glucose of more than 200 mg/dL in a nonstressed, ambulatory subject supports the diagnosisof Diabetes Mellitus. Hematocrit Auto (Bld) [Volume fraction]Ordered By: Elisa Garcia on 06-06-2022 Hematocrit (Bld) [Volume fraction]40.7 %38.8-50.0[facility] CenterHemoglobin [Mass/volume] in BloodOrdered By: Elisa Garcia on 06-06-2022 Hemoglobin (Bld) [Mass/Vol]13.7 g/dL13.0-17.0[facility] Hemogram CBC Without Diffon 06-83-0669Egyqtwgzpey distribution width (RBC) [Ratio]14.3 %Ujmujh49.0-14.8[facility] CenterComment on above: Order Comment: Reason for Exam CKD (chronic kidney disease) stage 4, GFR 15-29 ml/min;ADPKDPerformed By: #### HBSAG, HCV RX PCR #### [facility] ,Hematocrit (Bld) [Volume fraction]40.7 %Bdcluh60.8-50.0[facility] CenterComment on above:Order Comment: Reason for Exam CKD (chronic kidney disease) stage 4, GFR 15-29 ml/min;ADPKDPerformed By: #### HBSAG, HCV RX PCR #### [facility] ,Hemoglobin (Bld) [Mass/Vol]13.7 g/dSYlupdr45.0-17.0[facility] CenterComment on above:Order Comment: Reason for Exam CKD (chronic kidney disease) stage 4, GFR 15-29 ml/min;ADPKDPerformed By: #### HBSAG, HCV RX PCR #### [facility] ,MCH (RBC) [Entitic mass]30.1 wvFgwlqr14.5-35.2FParma [facility] Comment on above:Order Comment: Reason for Exam CKD (chronic kidney disease) stage 4, GFR 15-29 ml/min;ADPKDPerformed By: #### HBSAG, HCV RX PCR #### [facility] ,MCV (RBC) [Entitic vol]89.5 sPRjtjmn77.5-101[facility] Comment on above:Order Comment: Reason for Exam CKD (chronic kidney disease) stage 4, GFR 15-29 ml/min;ADPKDPerformed By: #### HBSAG, HCV RX PCR #### [facility] ,Mean Corpuscular HGB Conc33.6 g/kSBiulqi75.5-35.6FParma Community General HospitalComment on above:Order Comment: Reason for Exam CKD (chronic kidney disease) stage 4, GFR 15-29 ml/min;ADPKDPerformed By: #### HBSAG, HCV RX PCR #### [facility] ,Platelet mean volume (Bld) [Entitic vol]8.7 fLNormal6.6-10.1FParma Community General HospitalComment on above:Order Comment: Reason for Exam CKD (chronic kidney disease) stage 4, GFR 15-29 ml/min;ADPKDResult Comment: PERFORMED BY: [facility] John [place] [address] PATHOLOGIST CLINICAL LAB SCIENTIST SUSANNE BEE M.D.Performed By: #### HBSAG, HCV RX PCR #### [facility] ,Platelets (Bld) [#/Vol]229 10*3/uJZonbvr401-626KscbqlnsoUniversity Hospitals Conneaut Medical CenterComment on above:Order Comment: Reason for Exam CKD (chronic kidney disease) stage 4, GFR 15-29 ml/min;ADPKDPerformed By: #### HBSAG, HCV RX PCR #### [facility] ,RBC (Bld) [#/Vol]4.55 10*6/uLNormal3.90-5.60[facility] Comment on above:Order Comment: Reason for Exam CKD (chronic kidney disease) stage 4, GFR 15-29 ml/min;ADPKDPerformed By: #### HBSAG, HCV RX PCR #### [facility] ,WBC (Bld) [#/Vol]7.3 10*3/uLNormal4.1-10.5FPar[facility] Comment on above:Order Comment: Reason for Exam CKD (chronic kidney disease) stage 4, GFR 15-29 ml/min;ADPKDPerformed By: #### HBSAG, HCV RX PCR #### [facility] ,Ketones Auto test strip (U) [Mass/Vol]Ordered By: Elisa Garcia on 06-06-2022 Ketones (U) [Mass/Vol]NegativeNegativeUniversity Hospitals Conneaut Medical Center Laboratory - Chemistry and Chemistry - challengeOrdered By: Elisa Garcia on 99-82-1235MUX/1.73 sq M.predicted MDRD (S/P/Bld) [Vol rate/Area]9.816 mL/min/{1.73_m2}[facility] CenterLaboratory - UrinalysisOrdered By: Elisa Garcia on 99-57-2029Avkkhoj casts LM Ql (Urine sed)None seen [LPF]0-8 [facility] CenterLeukocytes [#/volume] corrected for nucleated erythrocytes in Blood by Automated counOrdered By: Elisa Garcia on 96-22-9968JKL corrected for nucl RBC Auto (Bld) [#/Vol]7.3 10*3/uL4.1-10.5FGerman HospitalH Auto (RBC) [Entitic mass]Ordered By: Elisa Garcia on 23-62-7326QAJ (RBC) [Entitic mass]30.1 pg27.5-35.2FParma Community General HospitalMCHC Auto (RBC) [Mass/Vol]Ordered By: Elisa Garcia on 75-85-9599DWND (RBC) [Mass/Vol]33.6 g/dL32.5-35.6FParma Community General HospitalMCV Auto (RBC) [Entitic vol]Ordered By: Elisa Garcia on 12-27-7233QWT (RBC) [Entitic vol]89.5 fL83.5-101[facility] CenterMagnesiumon 33-70-5011Bugfmuvfu [Mass/Vol]1.9 mg/dLNormal1.9-2.7FParma Community General HospitalComment on above:Order Comment: Reason for Exam CKD (chronic kidney disease) stage 4, GFR 15-29 ml/min;ADPKDPerformed By: #### HBSAG, HCV RX PCR #### [facility] ,Magnesium [Mass/volume] in Serum or PlasmaOrdered By: Elisa Garcia on 01-12-7395Kwmzptbzk [Mass/Vol]1.9 mg/dL1.9-2.7FPar[facility] Nitrite Test strip Ql (U)Ordered By: Elisa Garcia on 79-10-5947Jpaktas Ql (U) NegativeNegativeUniversity Hospitals Conneaut Medical CenterNo Panel InformationOrdered By: Elisa Garcia on 84-92-9571Pnqvldna Creatinine Clearance (ChemN/AFParma Community General HospitalParathyrin.intact [Mass/volume] in Serum or PlasmaOrdered By: Elisa Garcia on 34-14-9919Tbfvjjzloy.intact [Mass/Vol]740.8 pg/mL [facility] Medical CenterParathyroid Hormone Intacton 06-06-2022 Parathyroid Hormone Wtqtuq729.8 pg/qOBygk19-76KgdmvhcdfUniversity Hospitals Conneaut Medical Center Comment on above:Order Comment: Reason for Exam CKD (chronic kidney disease) stage 4, GFR 15-29 ml/min;ADPKDResult Comment: PERFORMED BY: [place] [address] PATHOLOGIST CLINICAL LAB SCIENTIST SUSANNE BEE M.D.Performed By: #### PTH #### [place] [address] USAPhosphate [Mass/volume] in Serum or PlasmaOrdered By: Elisa Garcia on 90-86-3948Zcscuocbr [Mass/Vol]5.4 mg/dL3.7-7.2FParma Community General HospitalPhosphoruson 91-90-3244Blnxxrohv [Mass/Vol]5.4 mg/dLNormal3.7-7.2 [facility] CenterComment on above:Order Comment: Reason for Exam CKD (chronic kidney disease) stage 4, GFR 15-29 ml/min;ADPKDPerformed By: #### HBSAG, HCV RX PCR #### [facility] ,Platelet mean volume Auto (Bld) [Entitic vol]Ordered By: Elisa Garcia on 83-11-6297Npozaxes mean volume (Bld) [Entitic vol]8.7 fL6.6-10.1FParma Community General HospitalPlatelets Auto (Bld) [#/Vol]Ordered By: Elisa Garcia on 05-10-5375Aynzbsedp (Bld) [#/Vol]229 10*3/tW721-925EfhpigasxUniversity Hospitals Conneaut Medical CenterPotassium [Moles/volume] in Serum or PlasmaOrdered By: Elisa Garcia on 01-80-6066Cygltfmjo [Moles/Vol]3.7 mmol/L3.5-5.1FParma Community General HospitalProtein Auto test strip (U) [Mass/Vol]Ordered By: Elisa Garcia on 66-18-1772Elklqvb (U) [Mass/Vol]30 mg/dLNegativeUniversity Hospitals Conneaut Medical CenterProtein [Mass/volume] in Serum or PlasmaOrdered By: Elisa Garcia on 28-42-5950Vfaoxmx [Mass/Vol]6.9 g/dL6.4-8.9[facility] CenterRBC Auto (Bld) [#/Vol]Ordered By: Elisa Garcia on 76-38-0549DGH (Bld) [#/Vol]4.55 10*6/uL3.90-5.60[facility] Medical Centererum or plasma albumin/globulin mass ratioOrdered By: Elisa Garcia on 06-06-2022 Albumin/Globulin [Mass ratio]1.9 {ratio}[facility] Medical Centererum or plasma anion gap determinationOrdered By: Elisa Garcia on 37-46-1986Gjwuk gap [Moles/Vol]16.6 mmol/L6.0-15.0[facility] Medical Centerodium [Moles/volume] in Serum or PlasmaOrdered By: Elisa Garcia on 02-08-5626Hfhytb [Moles/Vol]140 mmol/P383-108NtkpyumlgUniversity Hospitals St. John Medical Centerpecific gravity Auto test strip (U) [Rel density]Ordered By: Elisa Garcia on 89-48-9863Rhvosavp gravity (U) [Rel density]1.0081.001-1.030[facility] Squamous epithelial cells detection in urine sediment by light microscopyOrdered By: Elisa Garcia on 71-27-3781Zyxuniyjgx cells.squamous LM Ql (Urine sed)None seen [HPF]0-2FParma Community General HospitalUrate [Mass/volume] in Serum or PlasmaOrdered By: Elisa Garcia on 93-99-6606Digpa [Mass/Vol]8.4 mg/dL2.4-7.6 [facility] CenterUrea nitrogen [Mass/volume] in Serum or Plasma Ordered By: Elisa Garcia on 48-82-2766Hocs nitrogen [Mass/Vol]61 mg/dL7-25 [facility] CenterUric Acidon 37-04-9720Qsygr [Mass/Vol]8.4 mg/dL High2.4-7.6FParma Community General HospitalComment on above:Order Comment: Reason for Exam CKD (chronic kidney disease) stage 4, GFR 15-29 ml/min;ADPKD Result Comment: PERFORMED BY: [facility] [place] [address] PATHOLOGIST CLINICAL LAB SCIENTIST SUSANNE BEE M.D.Performed By: #### HBSAG, HCV RX PCR #### [facility] ,Urine bacteria detection by automated methodOrdered By: Elisa Garcia on 05-34-4995Xdcoxdag Auto Ql (U)None [facility] HospitalUrine clarity by refractometry automatedOrdered By: Elisa Garcia on 17-08-6360Zosqixy Refractometry automated (U)ClearClearFParma Community General HospitalUrine glucose measurement by automated test strip (mass/volume) Ordered By: Elisa Garcia on 65-42-3487Xiysnfx Auto test strip (U) [Mass/Vol] Normal mg/dLAshtabula County Medical CenterUrine hemoglobin detection by automated test stripOrdered By: Elisa Garcia on 19-84-1367Khrqjczbhw Auto test strip Ql (U)TraceNegMercy Health St. Elizabeth Boardman HospitalUrine leukocyte esterase detection by automated test stripOrdered By: Elisa Garcia on 06-06-2022 Leukocyte esterase Auto test strip Ql (U)NegativeNegMercy Health St. Elizabeth Boardman HospitalUrobilinogen Auto test strip (U) [Mass/Vol]Ordered By: Elisa Garcia on 77-90-7607Jonadsrmfcss (U) [Mass/Vol]Normal mg/dLNoWilson Street HospitalpH Auto test strip (U)Ordered By: Elisa Garcia on 24-83-6032wN (U)6.0 [pH]5.0-9.0[facility] CenterAutomated erythrocytes count in urine sediment (number/area)Ordered By: Joe Jauregui on 66-09-7382ZEF Auto (Urine sed) [#/Area]3-4 [HPF]0-4FParma Community General HospitalAutomated leukocytes count in urine sediment (number/area)Ordered By: Joe Jauregui on 20-16-1180AYB Auto (Urine sed) [#/Area]0-1 [HPF]0-4FParma Community General HospitalBilirubin Test strip Ql (U)Ordered By: Joe Jauregui on 82-66-8773Amsztkokg Ql (U)NegativeNegativeUniversity Hospitals Conneaut Medical CenterColor Auto (U)Ordered By: Joe aJuregui on 50-13-1896Klqfe (U)YellowYellowUniversity Hospitals Conneaut Medical CenterKetones Auto test strip (U) [Mass/Vol]Ordered By: Joe Jauregui on 21-92-1930Hdovkzf (U) [Mass/Vol]NegativeNegMercy Health St. Elizabeth Boardman HospitalLaboratory - UrinalysisOrdered By: Joe Jauregui on 04-17-2022 Hyaline casts LM Ql (Urine sed)None seen [LPF]0-8[facility] CenterNitrite Test strip Ql (U)Ordered By: Joe Jauregui on 96-62-6708Aiktglf Ql (U)NegativeNegMercy Health St. Elizabeth Boardman HospitalProtein Auto test strip (U) [Mass/Vol]Ordered By: Joe Jauregui on 81-21-9539Ycrzozf (U) [Mass/Vol]30 mg/dLNegOhioHealth Doctors Hospitalpecific gravity Auto test strip (U) [Rel density]Ordered By: oJe Jauregui on 44-87-2051Lyaibdgl gravity (U) [Rel density]1.0101.001-1.030[facility] Medical Centerquamous epithelial cells detection in urine sediment by light microscopyOrdered By: Joe Jauregui on 17-38-9111Pmtkoxlqlk cells.squamous LM Ql (Urine sed)None seen [HPF]0-2FParma Community General HospitalUrine bacteria detection by automated methodOrdered By: Joe Jauregui on 20-52-7499Nglrdxnu Auto Ql (U)None seenNone SeenUniversity Hospitals Conneaut Medical CenterUrine clarity by refractometry automated Ordered By: Joe Jauregui on 06-32-7241Xlxqhwp Refractometry automated (U)Clear ClearUniversity Hospitals Conneaut Medical CenterUrine culture routineOrdered By: Joe Jauregui on 28-34-4670Ddhndgts identified Cx Nom (U)2 DaysUniversity Hospitals Conneaut Medical CenterUrine glucose measurement by automated test strip (mass/volume) Ordered By: Joe Jauregui on 56-78-9184Aymjfjg Auto test strip (U) [Mass/Vol] Normal mg/dLNormDoctors HospitalUrine hemoglobin detection by automated test stripOrdered By: Joe Jauregui on 42-65-1645Mbziyxkmxn Auto test strip Ql (U)1+NegativeUniversity Hospitals Conneaut Medical CenterUrine leukocyte esterase detection by automated test stripOrdered By: Joe Jauregui on 34-14-3072Tfbqmbowt esterase Auto test strip Ql (U)NegativeNegMercy Health St. Elizabeth Boardman HospitalUrobilinogen Auto test strip (U) [Mass/Vol]Ordered By: Joe Jauregui on 15-51-7687Jkelvdfvcuta (U) [Mass/Vol]Normal mg/dLAshtabula County Medical CenterpH Auto test strip (U)Ordered By: Joe Jauregui on 01-25-8411jP (U)5.5 [pH]5.0-9.0[facility] Albumin [Mass/volume] in Serum or PlasmaOrdered By: Elisa Garcia on 03-31-2022 Albumin [Mass/Vol]4.1 g/dL3.2-5.5FParma Community General HospitalAutomated erythrocytes count in urine sediment (number/area)Ordered By: Elisa Garcia on 94-81-4529QVS Auto (Urine sed) [#/Area]0-1 [HPF]0-4FParma Community General HospitalAutomated leukocytes count in urine sediment (number/area)Ordered By: Elisa Garcia on 24-19-5302IPC Auto (Urine sed) [#/Area]0-1 [HPF]0-4FParma Community General HospitalBilirubin Test strip Ql (U)Ordered By: Elisa Garcia on 55-26-4336Btzsferqd Ql (U)NegativeNegativeUniversity Hospitals Conneaut Medical CenterColor Auto (U)Ordered By: Elisa Garcia on 64-57-8483Vqgek (U)YellowYellowUniversity Hospitals Conneaut Medical CenterCreatinine [Mass/volume] in UrineOrdered By: Elisa Garcia on 17-66-1626Vtfwrndffx (U) [Mass/Vol]42.8 mg/dLUniversity Hospitals Conneaut Medical CenterComment on above:No reference range establishedCreatinine and Glomerular filtration rate.predicted panel (S/P/Bld)Ordered By: Elisa Garcia on 03-31-2022 Creatinine [Mass/Vol]5.86 mg/dL0.64-1.27[facility] Erythrocyte distribution width Auto (RBC) [Ratio]Ordered By: Elisa Garcia on 48-10-4284Nqvmycdaemq distribution width (RBC) [Ratio]13.6 %12.0-14.8[facility] CenterEstimated glomerular filtration rate (GFR) non- AmericanOrdered By: Elisa Garcia on 44-63-7619FBK/1.73 sq M.predicted among non- blacks MDRD (S/P/Bld) [Vol rate/Area]11 mL/MinUniversity Hospitals Conneaut Medical Center Globulin Calc (S) [Mass/Vol]Ordered By: Elisa Garcia on 20-67-3500Lavfbqse (S) [Mass/Vol]2.8 g/dLUniversity Hospitals Conneaut Medical CenterHematocrit Auto (Bld) [Volume fraction]Ordered By: Elisa Garcia on 78-35-0704Jfdllyvwtk (Bld) [Volume fraction]44.7 %38.8-50.0[facility] CenterHemoglobin [Mass/volume] in BloodOrdered By: Elisa Garcia on 46-87-1868Fnlhmqkkqy (Bld) [Mass/Vol]14.9 g/dL13.0-17.0[facility] CenterKetones Auto test strip (U) [Mass/Vol]Ordered By: Elisa Garcia on 95-88-8006Fmrlxqm (U) [Mass/Vol] NegativeNegativeUniversity Hospitals Conneaut Medical CenterLaboratory - Chemistry and Chemistry - challengeOrdered By: Elisa Garcia on 99-42-9915Lcjmopzhz [Mass/Vol] 2.0 mg/dL1.6-2.6FParma Community General HospitalLaboratory - UrinalysisOrdered By: Elisa Garcia on 63-05-0536Wlcgbaa casts LM Ql (Urine sed)None seen [LPF]0-8 [facility] CenterLeukocytes [#/volume] corrected for nucleated erythrocytes in Blood by Automated counOrdered By: Elisa Garcia on 52-71-8947VWI corrected for nucl RBC Auto (Bld) [#/Vol]8.4 10*3/uL4.1-10.5FGerman HospitalH Auto (RBC) [Entitic mass]Ordered By: Elisa Garcia on 46-62-5187AXE (RBC) [Entitic mass]30.0 pg27.5-35.2FGerman HospitalHC Auto (RBC) [Mass/Vol]Ordered By: Elisa Garcia on 26-40-6740XHCE (RBC) [Mass/Vol]33.4 g/dL32.5-35.6FGerman HospitalV Auto (RBC) [Entitic vol]Ordered By: Elisa Garcia on 73-32-0933GNL (RBC) [Entitic vol]90.0 fL83.5-101[facility] CenterNitrite Test strip Ql (U)Ordered By: Elisa Garcia on 65-44-1079Oepykwq Ql (U)NegativeNegativeUniversity Hospitals Conneaut Medical CenterNo Panel InformationOrdered By: Elisa Garcia on 40-97-793720- Hydroxy Vitamin D Total26.4 ng/fN56-335EbuejqxfpUniversity Hospitals Conneaut Medical CenterComment on above:VITAMIN D STATUS 25(OH)VITAMIN D RANGE (ng/mL) Deficient <20 Insufficient 20 to <43Vwksjpykfq43 to 100Reference: Donell MF,Jh NC, Joaquín GONZALEZ, et al. Evaluation,treatment, and prevention of vitamin D deficiency; an Endocrine Society clinical practice guideline. JCEM. 2010; 96 (7):1911-30.Estimated GFR ()13 mL/MinUniversity Hospitals Conneaut Medical CenterComment on above:GFR estimated reference range: According to KDOQI guidelines, <60 ml/min/1.73m2 is sufficient todiagnose a patient with chronic kidney disease.Pharmacy Creatinine Clearance (ChemN/[facility] HospitalPlatelet mean volume Auto (Bld) [Entitic vol]Ordered By: Elisa Garcia on 62-81-4709Wfuofqlq mean volume (Bld) [Entitic vol]9.0 fL6.6-10.1FParma Community General HospitalPlatelets Auto (Bld) [#/Vol]Ordered By: Elisa Garcia on 84-41-7403Qapurejcw (Bld) [#/Vol]228 10*3/iP805-642HwopvwsynUniversity Hospitals Conneaut Medical CenterProtein Auto test strip (U) [Mass/Vol]Ordered By: Elisa Garcia on 07-10-8922Ipkkdlk (U) [Mass/Vol]Trace mg/dLNegativeUniversity Hospitals Conneaut Medical CenterProtein [Mass/volume] in Serum or PlasmaOrdered By: Elisa Garcia on 11-59-8223Ktjymqs [Mass/Vol]6.9 g/dL6.1-7.9[facility] Protein [Mass/volume] in UrineOrdered By: Elisa Garcia on 51-64-8454Henollo (U) [Mass/Vol]23 mg/dL0-9[facility] CenterRBC Auto (Bld) [#/Vol] Ordered By: Elisa Garcia on 12-60-6253WWJ (Bld) [#/Vol]4.97 10*6/uL3.90-5.[address] [facility] [facility] or plasma alanine aminotransferase measurement without P-5'-P (enzymatic activiOrdered By: Elisa Garcia on 59-33-0674YMC No additional P-5'-P [Catalytic activity/Vol]14 U/X01-26JyakpjvdbUniversity Hospitals St. John Medical Centererum or plasma albumin/globulin mass ratioOrdered By: Elisa Garcia on 65-27-2595Aqfkifr/Globulin [Mass ratio]1.5 {ratio}[facility] Centererum or plasma alkaline phosphatase measurement (enzymatic activity/volume)Ordered By: Elisa Garcia on 00-72-3812HMS [Catalytic activity/Vol]97 U/L88-16ImemcxnkeUniversity Hospitals St. John Medical Centererum or plasma anion gap determinationOrdered By: Elisa Garcia on 54-51-6408Zjrrh gap [Moles/Vol]15.7 mmol/L6.0-15.0[facility] Centererum or plasma aspartate aminotransferase measurement (enzymatic activity/volume)Ordered By: Elisa Garcia on 38-88-9080GNG [Catalytic activity/Vol]13 U/K90-83XhfyjmvemUniversity Hospitals St. John Medical Centererum or plasma calcium measurement (mass/volume)Ordered By: Elisa Garcia on 41-64-1968Jowpvje [Mass/Vol]9.5 mg/dL8.2-10.2FWexner Medical Centererum or plasma chloride measurement (moles/volume)Ordered By: Elisa Garcia on 34-45-5366Hstgljzn [Moles/Vol]105 mmol/C12-568ZybfrqlfyUniversity Hospitals St. John Medical Centererum or plasma glucose measurement (mass/volume)Ordered By: Elisa Garcia on 24-95-1186Gyyszir [Mass/Vol]67 mg/zE13-290KkrxlmorlUniversity Hospitals Conneaut Medical CenterComment on above:ADA recommended reference rangeRandom Glucose Reference Range is dependent on time and content of last meal. Glucose of more than 200 mg/dL in a nonstressed, ambulatory subject supports the diagnosisof Diabetes Mellitus.Serum or plasma intact parathyroid hormone measurement (mass/volume) Ordered By: Elsia Garcia 17-19-4962Zevctbddtx.intact [Mass/Vol]864.2 pg/mL [facility] Centererum or plasma potassium measurement (moles/volume)Ordered By: Elisa Garcia 89-28-8577Dxftfybjj [Moles/Vol]3.5 mmol/L3.5-5.1FWexner Medical Centererum or plasma sodium measurement (moles/volume)Ordered By: Elisa Garcia 56-75-5830Bxzalb [Moles/Vol]138 mmol/O138-723OvbgjpxcpUniversity Hospitals St. John Medical Centererum or plasma total bilirubin measurement (mass/volume)Ordered By: Elisa Garcia 45-91-3839Pgfharhus [Mass/Vol]0.5 mg/dL0.3-1.2FWexner Medical Centererum or plasma total carbon dioxide measurement (moles/volume)Ordered By: Elisa Garcia on 03-31-2022 CO2 [Moles/Vol]20.8 mmol/L22.0-30.0[facility] Centererum or plasma urea nitrogen measurement (mass/volume)Ordered By: Elisa Garcia on 00-95-9641Vddp nitrogen [Mass/Vol]80 mg/dL9-23[facility] Serum or plasma uric acid measurement (mass/volume)Ordered By: Elisa Garcia on 58-58-0728Xdoja [Mass/Vol]10.0 mg/dL2.6-7.2FPar[facility] Specific gravity Auto test strip (U) [Rel density]Ordered By: Elisa Garcia on 50-71-7650Jtduzmua gravity (U) [Rel density]1.0071.001-1.030[facility] Medical Centerquamous epithelial cells detection in urine sediment by light microscopyOrdered By: Elisa Garcia on 86-91-1041Kgmpixzwvy cells.squamous LM Ql (Urine sed)None seen [HPF]0-2FParma Community General HospitalUrine bacteria detection by automated methodOrdered By: Elisa Garcia on 26-72-7754Ddttrayx Auto Ql (U)None seenNone SeenUniversity Hospitals Conneaut Medical CenterUrine clarity by refractometry automatedOrdered By: Elisa Garcia 15-59-2059Fimbjks Refractometry automated (U)ClearClearFParma Community General HospitalUrine glucose measurement by automated test strip (mass/volume)Ordered By: Elisa Garcia on 90-39-9960Zkmiequ Auto test strip (U) [Mass/Vol]Normal mg/dLNormal [facility] CenterUrine hemoglobin detection by automated test stripOrdered By: Elisa Garcia on 23-28-5196Dwipizfdrv Auto test strip Ql (U) NegativeNegMercy Health St. Elizabeth Boardman HospitalUrine leukocyte esterase detection by automated test stripOrdered By: Elisa Garcia 09-01-5981Axjcnigjk esterase Auto test strip Ql (U)NegativeNegMercy Health St. Elizabeth Boardman HospitalUrine protein/creatinine ratioOrdered By: Elisa Garcia on 03-31-2022 Protein/Creatinine (U) [Ratio]537 mg/g{Cre}0-200[facility] Medical CenterUrobilinogen Auto test strip (U) [Mass/Vol]Ordered By: Elisa Garcia on 87-62-4823Pgsihgffdyis (U) [Mass/Vol]Normal mg/dLNormalUniversity Hospitals Conneaut Medical CenterpH Auto test strip (U)Ordered By: Elisa Garcia on 03-97-3534cV (U) 5.5 [pH]5.0-9.0[facility] CenterCreatinine and Glomerular filtration rate.predicted panel (S/P/Bld)Ordered By: Sadiq Garcia on 05-16-6708Bwhonxwtrq [Mass/Vol]6.15 mg/dL0.64-1.27[facility] CenterEstimated glomerular filtration rate (GFR) non- AmericanOrdered By: Sadiq Garcia on 73-97-3752LST/1.73 sq M.predicted among non-blacks MDRD (S/P/Bld) [Vol rate/Area]10 mL/MinUniversity Hospitals Conneaut Medical CenterNo Panel InformationOrdered By: Sadiq Garcia on 61-10-2359Aagygrjjh GFR ()12 mL/MinUniversity Hospitals Conneaut Medical CenterComment on above:GFR estimated reference range: According to KDOQI guidelines, <60 ml/min/1.73m2 is sufficient todiagnose a patient with chronic kidney disease.Pharmacy Creatinine Clearance (Chem18.44[facility] Centererum or plasma anion gap determinationOrdered By: Sadiq Garcia on 05-19-8525Xyoxl gap [Moles/Vol]15.6 mmol/L6.0-15.0[facility] Centererum or plasma calcium measurement (mass/volume)Ordered By: Sadiq Garcia on 58-25-3471Zqscyvk [Mass/Vol]9.1 mg/dL8.2-10.2FWexner Medical Centererum or plasma chloride measurement (moles/volume)Ordered By: Sadiq Garcia on 01-17-2022 Chloride [Moles/Vol]107 mmol/M58-568PkezfurpdUniversity Hospitals St. John Medical Centererum or plasma glucose measurement (mass/volume)Ordered By: Sadiq Garcia on 01-17-2022 Glucose [Mass/Vol]82 mg/kL13-536TnqzskziwUniversity Hospitals Conneaut Medical CenterComment on above:ADA recommended reference rangeRandom Glucose Reference Range is dependent on time and content of last meal. Glucose of more than 200 mg/dL in a nonstressed, ambulatory subject supports the diagnosisof Diabetes Mellitus.Serum or plasma potassium measurement (moles/volume)Ordered By: Sadiq Garcia on 23-67-4391Gdanxvlrs [Moles/Vol]3.3 mmol/L3.5-5.1FWexner Medical Centererum or plasma sodium measurement (moles/volume)Ordered By: Sadiq Garcia on 21-67-2680Wihpmq [Moles/Vol]139 mmol/I133-786AymbzzmweUniversity Hospitals St. John Medical Centererum or plasma total carbon dioxide measurement (moles/volume) Ordered By: Sadiq Garcia on 46-48-8014GL9 [Moles/Vol]19.7 mmol/L22.0-30.[address] [facility] Centererum or plasma urea nitrogen measurement (mass/volume)Ordered By: Sadiq Garcia on 18-57-4405Nxgf nitrogen [Mass/Vol]61 mg/dL9-23[facility] Medical CenterCOVID-19 Positive/NegativeOrdered By: Roshan Izaguirre on 46-20-7702QSIY-CoV-2 (COVID-19) N gene DARIUS+probe Ql (Resp) NegativeNegativeUniversity Hospitals Conneaut Medical CenterComment on above:Testing for SARS-CoV-2 by RT-PCRThis test was developed and its performance characteristics determined by [employer] ([employer]) and validated at the [facility]. This test has not been FDA cleared or approved. This test has been authorized by FDA under an Emergency Use Authorization (EUA). This test has been validated in accordance with the FDA's Guidance Document (Policy for Diagnostics Testing in Laboratories Certified to Perform High Complexity Testing under CLIA prior to Emergency Use Authorization for Coronavirus Disease- 2019 during the Public Health Emergency) issued on July 03, 2019. This test is only authorized for the duration of time the declaration that circumstances exist justifying the authorization of the emergency use of in vitro diagnostic tests for detection of SARS-CoV-2 virus and/or diagnosis of COVID-19 infection under section 564(b)(1) of the Act, 21 U.S.C. 360bbb-3(b)(1), unless the authorization is terminated or revoked sooner.Creatinine and Glomerular filtration rate.predicted panel (S/P/Bld)Ordered By: Zeferino Keys on 25-75-1655Ddjykypwpk [Mass/Vol]5.16 mg/dL0.64-1.27[facility] CenterEstimated glomerular filtration rate (GFR) non- AmericanOrdered By: Zeferino Keys on 74-96-8076JDP/1.73 sq M.predicted among non-blacks MDRD (S/P/Bld) [Vol rate/Area]12 mL/MinUniversity Hospitals Conneaut Medical CenterNo Panel InformationOrdered By: Zeferino Keys on 73-73-3621Voyaewizh GFR ()15 mL/MinUniversity Hospitals Conneaut Medical CenterComment on above:GFR estimated reference range: According to KDOQI guidelines, <60 ml/min/1.73m2 is sufficient todiagnose a patient with chronic kidney disease.Pharmacy Creatinine Clearance (Chem22.21[facility] Centererum or plasma anion gap determinationOrdered By: Zeferino Keys on 38-39-3688Cusuz gap [Moles/Vol]16.3 mmol/L6.0-15.0[facility] Centererum or plasma calcium measurement (mass/volume)Ordered By: Zeferino Keys on 47-00-2633Rtcxwmf [Mass/Vol]9.3 mg/dL8.2-10.2FWexner Medical Centererum or plasma chloride measurement (moles/volume)Ordered By: Zeferino Keys on 12-06-2021 Chloride [Moles/Vol]106 mmol/R28-101FzggxkfjbUniversity Hospitals St. John Medical Centererum or plasma glucose measurement (mass/volume)Ordered By: Zeferino Keys on 94-05-2626Waskozf [Mass/Vol]83 mg/lM21-299ArelbzvrfUniversity Hospitals Conneaut Medical Center Comment on above:ADA recommended reference range Random Glucose Reference Range is dependent on time and content of last meal. Glucose of more than 200 mg/dL in a nonstressed, ambulatory subject supports the diagnosis of Diabetes Mellitus.ADA recommended reference rangeRandom Glucose Reference Range is dependent on time and content of last meal. Glucose of more than 200 mg/dL in a nonstressed, ambulatory subject supports the diagnosisof Diabetes Mellitus.Serum or plasma potassium measurement (moles/volume)Ordered By: Zeferino Keys on 91-13-1881Emiznxrkj [Moles/Vol]3.5 mmol/L3.5-5.1FWexner Medical Centererum or plasma sodium measurement (moles/volume)Ordered By: Zeferino Keys on 27-79-9774Hcqczy [Moles/Vol]139 mmol/S135-869EayuctmstUniversity Hospitals St. John Medical Centererum or plasma total carbon dioxide measurement (moles/volume)Ordered By: Zeferino Keys on 42-51-3634ZQ7 [Moles/Vol]20.2 mmol/L22.0-30.0[facility] Centererum or plasma urea nitrogen measurement (mass/volume)Ordered By: Zeferino Bordenel on 78-75-5528Cubt nitrogen [Mass/Vol]44 mg/dL9-23[facility] CenterCOVID-19 Positive/NegativeOrdered By: Roshan Izaguirre on 62-81-2287JMRM-CoV-2 (COVID- 19) N gene DARIUS+probe Ql (Resp)NegativeNegativeUniversity Hospitals Conneaut Medical Center Comment on above:Testing for SARS-CoV-2 by RT-PCR This test was developed and its performance characteristics determined by [employer] ([employer]) and validated at the [facility]. This test has not been FDA cleared or approved. This test has been authorized by FDA under an Emergency Use Authorization (EUA). This test has been validated in accordance with the FDA's Guidance Document (Policy for Diagnostics Testing in Laboratories Certified to Perform High Complexity Testing under CLIA prior to Emergency Use Authorization for Coronavirus Disease-2019 during the Public Health Emergency) issued on July 03, 2019. This test is only authorized for the duration of time the declaration that circumstances exist ju stifying the authorization of the emergency use of in vitro diagnostic tests for detection of SARS-CoV-2 virus and/or diagnosis of COVID-19 infection under section 564(b)(1) of the Act, 21 U.S.C. 360bbb-3(b)(1), unless the authorization is terminated or revoked sooner.Testing for SARS-CoV-2 by RT-PCRThis test was developed and its performance characteristics determined by [employer] ([employer]) and validated at the [facility]. This test has not been FDA cleared or approved. This test has been authorized by FDA under an Emergency Use Authorization (EUA). This test has been validated in accordance with the FDA's Guidance Document (Policy for Diagnostics Testing in Laboratories Certified to Perform High Complexity Testing under CLIA prior to Emergency Use Authorization for Coronavirus Disease-2019 during the Public Health Emergency) issued on July 03, 2019. This test is only authorized for the duration of time the declaration that circumstances exist justifying the authorization of the emergency use of in vitro diagnostic tests for detection of SARS-CoV-2 virus and/or diagnosis of COVID-19 infection under section 564(b)(1) of the Act, 21 U.S.C. 360bbb-3(b)(1), unless the authorization is terminated or revoked sooner.Blood hemoglobin measurement (mass/volume)Ordered By: Elisa Garcia on 92-57-3287Unfpkrbwfr (Bld) [Mass/Vol]15.7 g/dL13.0-17.0[facility] CenterBody fluid albumin measurement (mass/volume)Ordered By: Elisa Garcia on 10-75-0375Fcnjkdh (Body fld) [Mass/Vol]4.2 g/dL3.2-5.5FParma Community General HospitalCreatinine and Glomerular filtration rate.predicted panel (S/P/Bld)Ordered By: Elisa Garcia on 73-59-9414Gvpbyedsgv [Mass/Vol]5.55 mg/dL 0.64-1.27[facility] CenterErythrocyte distribution width Auto (RBC) [Ratio]Ordered By: Elisa Garcia on 31-32-5814Xsgjmhapgic distribution width (RBC) [Ratio]13.6 %12.0-14.8[facility] CenterEstimated glomerular filtration rate (GFR) non- AmericanOrdered By: Elisa Garcia on 77-29-9069FBF/1.73 sq M.predicted among non-blacks MDRD (S/P/Bld) [Vol rate/Area]11 mL/MinUniversity Hospitals Conneaut Medical CenterGlobulin Calc (S) [Mass/Vol] Ordered By: Elisa Garcia on 08-72-5827Osbkggln (S) [Mass/Vol]3.1 g/dLUniversity Hospitals Conneaut Medical CenterHematocrit Auto (Bld) [Volume fraction]Ordered By: Elisa Garcia on 69-04-7341Uzhgoosxhu (Bld) [Volume fraction]46.4 %38.8-50.0[facility] HospitalH Auto (RBC) [Entitic mass]Ordered By: Elisa Garcia on 63-75-2951OOU (RBC) [Entitic mass]30.9 pg27.5-35.2FGerman HospitalHC Auto (RBC) [Mass/Vol]Ordered By: Elisa Garcia on 59-02-4179XMZU (RBC) [Mass/Vol]33.8 g/dL32.5-35.6FGerman HospitalV Auto (RBC) [Entitic vol]Ordered By: Elisa Garcia on 44-04-1545ZZU (RBC) [Entitic vol]91.5 fL83.5-101[facility] CenterNo Panel InformationOrdered By: Elisa Garcia on 44-57-4751Njritnsvk GFR ()14 mL/MinUniversity Hospitals Conneaut Medical CenterComment on above:GFR estimated reference range: According to KDOQI guidelines, <60 ml/min/1.73m2 is sufficient todiagnose a patient with chronic kidney disease.Pharmacy Creatinine Clearance (ChemN/[facility] HospitalPlatelet mean volume Auto (Bld) [Entitic vol]Ordered By: Elisa Garcia on 01-26-6793Caemukhf mean volume (Bld) [Entitic vol]9.7 fL6.6-10.1FParma Community General HospitalPlatelets Auto (Bld) [#/Vol]Ordered By: Elisa Garcia on 34-08-6680Xzdckqbrj (Bld) [#/Vol]245 10*3/fI285-808QetnvfcvlUniversity Hospitals Conneaut Medical CenterProtein [Mass/volume] in Serum or PlasmaOrdered By: Elisa Garcia on 58-13-9178Qtxdolq [Mass/Vol]7.3 g/dL6.1-7.9[facility] Medical CenterRBC Auto (Bld) [#/Vol]Ordered By: Elisa Garcia on 65-56-0026SFE (Bld) [#/Vol]5.07 10*6/uL3.90-5.60[facility] Centererum or plasma alanine aminotransferase measurement without P-5'-P (enzymatic activiOrdered By: Elisa Garcia on 81-35-1573VWM No additional P-5'-P [Catalytic activity/Vol]19 U/L 10-60[facility] Centererum or plasma albumin/globulin mass ratioOrdered By: Elisa Garcia on 60-57-7879Lhokrhj/Globulin [Mass ratio]1.4 {ratio}[facility] Centererum or plasma alkaline phosphatase measurement (enzymatic activity/volume)Ordered By: Elisa Garcia on 74-66-7073FZF [Catalytic activity/Vol]85 U/E14-97CznkndqakUniversity Hospitals St. John Medical Centererum or plasma aspartate aminotransferase measurement (enzymatic activity/volume)Ordered By: Eilsa Garcia on 19-68-0570OBC [Catalytic activity/Vol]18 U/G06-23LyvgfnjiwUniversity Hospitals St. John Medical Centererum or plasma calcium measurement (mass/volume)Ordered By: Elisa Garcia on 85-68-2501Flpxtqq [Mass/Vol]9.9 mg/dL8.2-10.2FWexner Medical Centererum or plasma chloride measurement (moles/volume) Ordered By: Elisa Garcia on 26-98-8594Tuukrxdz [Moles/Vol]104 mmol/L95-[address] [facility] Centererum or plasma glucose measurement (mass/volume)Ordered By: Elisa Garcia on 25-59-0263Gxlnzlc [Mass/Vol]141 mg/dL 70-100[facility] CenterComment on above:ADA recommended reference range Random Glucose Reference Range is dependent on time and content of last meal. Glucose of more than 200 mg/dL in a nonstressed, ambulatory subject supports the diagnosis of Diabetes Mellitus.ADA recommended reference rangeRandom Glucose Reference Range is dependent on time and content of last meal. Glucose of more than 200 mg/dL in a nonstressed, ambulatory subject supports the diagnosisof Diabetes Mellitus.Serum or plasma intact parathyroid hormone measurement (mass/volume)Ordered By: Elisa Garcia on 22-14-2792Xmfinftfej.intact [Mass/Vol] 416.6 pg/xF30-25BilwzzftsUniversity Hospitals St. John Medical Centererum or plasma potassium measurement (moles/volume)Ordered By: Elisa Garcia on 39-96-7873Pcxdnprti [Moles/Vol]4.2 mmol/L3.5-5.1FWexner Medical Centererum or plasma sodium measurement (moles/volume)Ordered By: Elisa Garcia on 15-44-8688Hsqnyy [Moles/Vol]137 mmol/R342-215DiahwmulyUniversity Hospitals St. John Medical Centererum or plasma total bilirubin measurement (mass/volume)Ordered By: Elisa Garcia on 10-18-2021 Bilirubin [Mass/Vol]0.9 mg/dL0.3-1.2FWexner Medical Centererum or plasma total carbon dioxide measurement (moles/volume)Ordered By: Elisa Garcia on 72-20-6913EZ2 [Moles/Vol]18.5 mmol/L22.0-30.0[facility] Centererum or plasma urea nitrogen measurement (mass/volume)Ordered By: Elisa Garcia on 98-32-1301Five nitrogen [Mass/Vol]60 mg/dL9-23[facility] Centererum or plasma uric acid measurement (mass/volume)Ordered By: Elisa Garcia on 38-24-6556Daoyv [Mass/Vol]10.9 mg/dL2.6-7.2FParma Community General HospitalWBC Auto (Bld) [#/Vol]Ordered By: Caalyse Garcia on 74-74-6968SUH (Bld) [#/Vol]7.9 10*3/uL4.1-10.5FParma Community General HospitalCreatinine and Glomerular filtration rate.predicted panel (S/P/Bld)Ordered By: Terrance Cedillo on 53-95-9925Pdnfhxoefp [Mass/Vol]4.53 mg/dL0.64-1.27[facility] CenterEstimated glomerular filtration rate (GFR) non- AmericanOrdered By: Terrance Cedillo on 58-60-2511YYX/1.73 sq M.predicted among non-blacks MDRD (S/P/Bld) [Vol rate/Area]14 mL/MinUniversity Hospitals Conneaut Medical CenterNo Panel Information Ordered By: Terrance Cedillo on 25-44-8590Gkkhilrzl GFR ()17 mL/Min [facility] CenterComment on above:GFR estimated reference range: According to KDOQI guidelines, <60 ml/min/1.73m2 is sufficient todiagnose a patient with chronic kidney disease.Pharmacy Creatinine Clearance (Chem25.[address] [facility] Centererum or plasma calcium measurement (mass/volume)Ordered By: Terrance Cedillo on 45-64-2440Lhhuxno [Mass/Vol]9.0 mg/dL 8.2-10.2FWexner Medical Centererum or plasma chloride measurement (moles/volume)Ordered By: Terrance Cedillo on 85-40-9007Abjtivax [Moles/Vol]108 mmol/L 95-114[facility] Centererum or plasma glucose measurement (mass/volume)Ordered By: Terrance Cedillo on 53-04-2571Xtdmica [Mass/Vol]95 mg/dL 70-100[facility] CenterComment on above:ADA recommended reference range Random Glucose Reference Range is dependent on time and content of last meal. Glucose of more than 200 mg/dL in a nonstressed, ambulatory subject supports the diagnosis of Diabetes Mellitus.ADA recommended reference rangeRandom Glucose Reference Range is dependent on time and content of last meal. Glucose of more than 200 mg/dL in a nonstressed, ambulatory subject supports the diagnosisof Diabetes Mellitus.Serum or plasma potassium measurement (moles/volume)Ordered By: Terrance Cedillo on 08-62-8035Sutvtvkff [Moles/Vol]3.4 mmol/L3.5-5.1FWexner Medical Centererum or plasma sodium measurement (moles/volume)Ordered By: Terrance Cedillo on 20-36-6418Rlltsn [Moles/Vol]140 mmol/H496-538DqdvhhmjcUniversity Hospitals St. John Medical Centererum or plasma total carbon dioxide measurement (moles/volume)Ordered By: Terrance Cedillo on 20-59-2048OI6 [Moles/Vol]19.2 mmol/L 22.0-30.0[facility] Centererum or plasma urea nitrogen measurement (mass/volume)Ordered By: Terrance Cedillo on 82-29-5888Tvfz nitrogen [Mass/Vol]71 mg/dL9-23[facility] CenterBasophils Auto (Bld) [#/Vol]Ordered By: Roshan Izaguirre on 16-40-4604Sbeowfllx (Bld) [#/Vol]0.0 10*3/uL0.0-0.2FParma Community General HospitalBasophils/100 WBC Auto (Bld) Ordered By: Roshan Zina on 56-45-0861Wghzniatq/100 WBC (Bld)0.1 %. [facility] CenterBlood hemoglobin measurement (mass/volume) Ordered By: Roshan Izaguirre on 30-73-8668Pbgtaboqjx (Bld) [Mass/Vol]14.4 g/dL 13.0-17.0[facility] CenterBlood leukocytes automated count (number/volume)Ordered By: Roshan Zina on 56-14-3056CML (Bld) [#/Vol]12.3 10*3/uL4.5-11.0[facility] CenterCOVID-19 Positive/Negative Ordered By: Roshan Izaguirre on 21-93-2385NEUJ-CoV-2 (COVID-19) N gene DARIUS+probe Ql (Resp)NegativeNegativeUniversity Hospitals Conneaut Medical CenterComment on above:Testing for SARS-CoV-2 by RT-PCR This test was developed and its performance characteristics determined by [employer] ([employer]) and validated at the [facility]. This test has not been FDA cleared or approved. This test has been authorized by FDA under an Emergency Use Authorization (EUA). This test has been validated in accordance with the FDA's Guidance Document (Policy for Diagnostics Testing in Laboratories Certified to Perform High Complexity Testing under CLIA prior to Emergency Use Authorization for Coronavirus Disease-2019 during the Public Health Emergency) issued on July 03, 2019. This test is only authorized for the duration of time the declaration that circumstances exist ju stifying the authorization of the emergency use of in vitro diagnostic tests for detection of SARS-CoV-2 virus and/or diagnosis of COVID-19 infection under section 564(b)(1) of the Act, 21 U.S.C. 360bbb-3(b)(1), unless the authorization is terminated or revoked sooner.Creatinine and Glomerular filtration rate.predicted panel (S/P/Bld)Ordered By: Roshan Izaguirre on 10-06-2021 Creatinine [Mass/Vol]5.18 mg/dL0.64-1.27[facility] Eosinophils Auto (Bld) [#/Vol]Ordered By: Roshan Izaguirre on 10-06-2021 Eosinophils (Bld) [#/Vol]0.0 10*3/uL0.0-0.45[facility] Eosinophils/100 WBC Auto (Bld)Ordered By: Roshan Izaguirre on 10-06-2021 Eosinophils/100 WBC (Bld)0.0 %.[facility] CenterErythrocyte distribution width Auto (RBC) [Ratio]Ordered By: Roshan Izaguirre on 33-09-2641Sqbumywcuwc distribution width (RBC) [Ratio]13.5 %12.0-14.8[facility] CenterEstimated glomerular filtration rate (GFR) non- AmericanOrdered By: Roshan Izaguirre on 86-18-7735DHH/1.73 sq M.predicted among non-blacks MDRD (S/P/Bld) [Vol rate/Area]12 mL/MinUniversity Hospitals Conneaut Medical CenterHematocrit Auto (Bld) [Volume fraction]Ordered By: Roshan Izaguirre on 11-06-4050Gqtxcnxyon (Bld) [Volume fraction]42.9 %38.8-50.0 [facility] [facility] CenterLabor[facility] - Hematology and Cell countsOrdered By: Roshan Izaguirre on 96-52-1371Okuryabiv RBC/100 WBC (Bld) [Ratio]0.1 % 0-0.5FParma Community General HospitalLymphocytes Auto (Bld) [#/Vol]Ordered By: Roshan Izaguirre on 26-61-2471Fikaltszmuz (Bld) [#/Vol]0.6 10*3/uL1.00-4.8 [facility] CenterLymphocytes/100 WBC Auto (Bld)Ordered By: Roshan Izaguirre on 05-52-2235Xaumcvivnzg/100 WBC (Bld)4.6 %.[facility] Auto (RBC) [Entitic mass]Ordered By: Roshan Izaguirre on 20-46-2505IFH (RBC) [Entitic mass]30.8 pg27.5-35.2FFayette [facility] Auto (RBC) [Mass/Vol]Ordered By: Roshan Izaguirre on 32-33-8267MWEC (RBC) [Mass/Vol]33.5 g/dL32.5-35.6FParma Community General HospitalMCV Auto (RBC) [Entitic vol]Ordered By: Roshan Izaguirre on 10-06-2021 MCV (RBC) [Entitic vol]91.9 fL83.5-101[facility] CenterMonocytes Auto (Bld) [#/Vol]Ordered By: Roshan Izaguirre on 52-76-4973Qhcoivfos (Bld) [#/Vol]0.3 10*3/uL0.0-0.8[facility] CenterMonocytes/100 WBC Auto (Bld)Ordered By: Roshan Izaguirre on 66-66-4159Clyapyhwt/100 WBC (Bld)2.5 %. [facility] CenterNeutrophils Auto (Bld) [#/Vol]Ordered By: Roshan Izaguirre on 41-30-0403Sldskocvtmv (Bld) [#/Vol]11.4 10*3/uL1.8-7.7 [facility] CenterNeutrophils/100 WBC Auto (Bld)Ordered By: Roshan Izaguirre on 26-84-5142Mpjjykkhdkd/100 WBC (Bld)92.8 %.[facility] CenterNo Panel InformationOrdered By: Roshan Izaguirre on 31-50-1721Gzcydlelj GFR ()15 mL/MinUniversity Hospitals Conneaut Medical CenterComment on above:GFR estimated reference range: According to KDOQI guidelines, <60 ml/min/1.73m2 is sufficient todiagnose a patient with chronic kidney disease.Pharmacy Creatinine Clearance (ChemN/AFParma Community General HospitalPlatelet mean volume Auto (Bld) [Entitic vol]Ordered By: Roshan Izaguirre on 46-72-4796Bawbohvy mean volume (Bld) [Entitic vol]8.7 fL6.6-10.1 [facility] CenterPlatelets Auto (Bld) [#/Vol]Ordered By: Roshan Izaguirre on 23-08-2098Kouspfiww (Bld) [#/Vol]291 10*3/fN657-333YfkpwktznUniversity Hospitals Conneaut Medical CenterRBC Auto (Bld) [#/Vol]Ordered By: Roshan Izaguirre on 21-14-4705CVA (Bld) [#/Vol]4.66 10*6/uL3.90-5.60[facility] Medical Centererum or plasma calcium measurement (mass/volume)Ordered By: Roshan Izaguirre on 97-37-5115Oipbqpx [Mass/Vol]9.7 mg/dL8.2-10.2FWexner Medical Centererum or plasma chloride measurement (moles/volume)Ordered By: Roshan Izaguirre on 92-21-2874Lyrgrwjs [Moles/Vol]107 mmol/C08-232HyxgfzfaiUniversity Hospitals St. John Medical Centererum or plasma glucose measurement (mass/volume)Ordered By: Roshan Izaguirre on 64-01-0634Wcvftec [Mass/Vol]136 mg/qP93-153OxkdxcvjyUniversity Hospitals Conneaut Medical CenterComment on above:ADA recommended reference range Random Glucose Reference Range is dependent on time and content of last meal. Glucose of more than 200 mg/dL in a nonstressed, ambulatory subject supports the diagnosis of Diabetes Mellitus.Serum or plasma potassium measurement (moles/volume)Ordered By: Roshan Izaguirre on 63-64-1834Koctbqssg [Moles/Vol] 4.1 mmol/L3.5-5.1FWexner Medical Centererum or plasma sodium measurement (moles/volume)Ordered By: Roshan Izaguirre on 25-61-2889Cbgduh [Moles/Vol]139 mmol/E518-401OebtsysugUniversity Hospitals St. John Medical Centererum or plasma total carbon dioxide measurement (moles/volume)Ordered By: Roshan Izaguirre on 37-84-9697AC6 [Moles/Vol]16.3 mmol/L22.0-30.0[facility] Serum or plasma urea nitrogen measurement (mass/volume)Ordered By: Roshan Izaguirre on 73-04-4016Yhwc nitrogen [Mass/Vol]81 mg/dL9-23[facility] Vital Signs Date TimeVital SignValuePerforming MxdjaaqozYhubikun90-25-1177 08:39-0400Body uucaha947.3 cmMicavani Marin NP Work Phone: [facility] HospitalXvgonhiwzl51-97-2325 08:39-0400Body mass index (BMI) [Ratio]29.3 kg/u3JvhxknuGregory Marin CARTOGRAPHIC AIDE Work Phone: [facility]Mwmmjzhrwf63-90-1407 08:39-0400Body pbfahh44.99 kgMicavani Marin CARTOGRAPHIC AIDE Work Phone: [facility] LouisBlpriabjpz70-38-9922 08:39-0400Diastolic blood knovqhgl23 mm[Hg]Gregory Marin CARTOGRAPHIC AIDE Work Phone: [facility] LouisLexnwzrokr71-60-7114 08:39-0400Heart rate75 /min Gregory Marin CARTOGRAPHIC AIDE Work Phone: [facility] LouisBerppcaedd43-94-2160 08:39-4112HkI4% (BldA) [Mass fraction]98 %Gregory Marni CARTOGRAPHIC AIDE Work Phone: [facility] LouisDuxtilhdxe96-47-9735 08:39-0400Systolic blood bfyywwsi499 mm[Hg]Gregory Marin CARTOGRAPHIC AIDE Work Phone: [phone] [place], [place] [address]Fujgqluyli88-44-7783 16:09-0400Body mass index (BMI) [Ratio]29.83 kg/n1Xyqphib Tali-Nossek [employer] Work Phone: [facility] LouisHnqmztseov41-71-7188 16:09-0400Body .63 kgFelicia Tali-Nossek FLAME [employer] Work Phone: [facility] LouisAxqbqxpndi59-54-2415 16:09-0400Diastolic blood tfoljvgb65 mm[Hg]Yanira Tali-Nossek FLAME C[employer]TER[employer]OST Work Phone: [phone] [place], [place] [address]Uttquyocnw66-10-0121 16:09-0400Heart rate85 /min Yanira Tali-Nossek [employer] Work Phone: [phone] [place], [place] [address]Gukfpinrni10-80-3633 16:09-0400Systolic blood wqwrukid156 mm[Hg]Yanira Tali-Nossek FLAME [employer] H[employer] Work Phone: [facility] LouisZevvfkqzay97-95-1722 14:32-0400Body wsvher324.26 cmUniversity Hospitals [facility] Center04-14-2025 14:32-0400Body mass index (BMI) [Ratio]29.9 kg/z8ImdvjfzmqUniversity Hospitals Conneaut Medical Center04-14-2025 14:32-0400Body eucycssxufi61.3 [degF][facility]04-14-2025 14:32-0400Body uqzkso75.07 kgUniversity Hospitals [facility] Medical Center04-14-2025 14:32-0400Diastolic blood njkqxwan84 mm[Hg][facility]04-14-2025 14:32-0400 Heart csop275 /[facility]04-14-2025 14:32-0400 Respiratory rate16 /[facility]04-14-2025 14:32-0400 SaO2% (BldA) [Mass fraction]98 %[facility]04-14-2025 14:32-0400Systolic blood qzzeamry123 mm[Hg][facility] 03-04-2024 13:50-0500Body rdcxhu632.3 cmJessenia Bello MD Work Phone: [phone] [place], [place] 6043112-03-2024 13:50-0500 Body mass index (BMI) [Ratio]32.8 kg/m2Jessenia Bello MD Work Phone: [phone]-[facility]12-03-2024 13:50-0500 Body wqtlifyxcpu60.2 [degF]Jessenia Bello MD Work Phone: [phone])060-[facility]12-03-2024 13:50-0500 Body .74 kgJessenia Bello MD Work Phone: [phone])985-[facility]11-14-2024 14:00-0500 Body mass index (BMI) [Ratio]32.93 kg/w9FlfdmaqYanira Beavers FL[employer] Work Phone: [facility] LouisTeqghmclpv22-01-0995 14:00-0500Body tiizzc031.15 kgYanira Beavers FLAME C[employer] HOST Work Phone: [facility] LouisNzmgcczujt20-36-9885 14:00-0500Diastolic blood xgaravkq005 mm[Hg]Yanira Beavers FLAME C[employer] HOST Work Phone: [facility] LouisYujyfbpbsz78-23-5756 14:00-0500Heart rate98 /min Yanira Beavers FL[employer] C[employer] H[employer] Work Phone: [facility] LouisCnxmlamleh99-41-1234 14:00-0500Systolic blood lscrwqwe480 mm[Hg]Yanira Beavers FL[employer] C[employer] H[employer] Work Phone: [facility] LouisDutduubimb87-02-4991 12:56-0400Body igjviv797.3 cmJessenia Bello MD Work Phone: [phone] [place], [place] 6043110-15-2024 12:56-0400 Body mass index (BMI) [Ratio]32.44 kg/m2Jessenia Bello MD Work Phone: [phone]10-15-2024 12:56-0400 Body .1 [degF]Jessenia Bello MD Work Phone: [phone])154-[address] [place], [place] 6043110-15-2024 12:56-0400 Body vgncyx40.66 kgJessenia Bello MD Work Phone: [phone]09-03-2024 15:45-0400 Body hlddzi322.3 cmJad Arndt MD Work Phone: [facility] LouisJuufnnltkt71-93-8505 15:45-0400Body mass index (BMI) [Ratio]32.19 kg/i0FaiciqJad Arndt MD Work Phone: [facility] LouisGmpcxgolkn27-19-3266 15:45-0400Body crnqpy28.88 kgJad Arndt MD Work Phone: [facility] LouisSnbxeosvgn81-03-0292 15:45-0400Diastolic blood mm[Hg]Jad Arndt MD Work Phone: [facility] LouisCcjjnexbpz26-45-7197 15:45-0400Systolic blood nccuqxoe401 mm[Hg]Jad Arndt MD Work Phone: [facility] LouisXviawzcwmz06-27-7742 14:40-0400Diastolic blood yzxshkfq624 mm[Hg]Jad Arndt MD Work Phone: [facility] HealthcareComment on above:Ofeyml78-50-6147 14:40-0400Systolic blood mm[Hg]Jad Arndt MD Work Phone: [facility] HealthcareComment on above:Jmfyua16-85-6354 14:29-0400Body lskqaa932.3 cmJad Arndt MD Work Phone: [facility] LouisRovqgxriyt44-00-0474 14:29-0400Body mass index (BMI) [Ratio]32.34 kg/r2JqptklJad Arndt MD Work Phone: [facility] LouisJrmybhydln60-04-8020 14:29-0400Body askcja54.34 kgJad Arndt MD Work Phone: [facility] LouisPnycfyetci19-71-3927 12:55-0400Body .26 cmUniversity [facility]06-06-2024 12:55-0400Body mass index (BMI) [Ratio]32.3 kg/g2DbkafhkrnUniversity Hospitals Conneaut Medical Center06-06-2024 12:55-0400Body hvtvocqissj02.1 [degF][facility]06-06-2024 12:55-0400Body axtljw11.33 kgUniversity Hospitals [facility] Center06-06-2024 12:55-0400Heart rate 100 /[facility]06-06-2024 12:55-0400Respiratory rate18 /[facility]06-06-2024 12:55-3643JhU7% (BldA) [Mass fraction]98 %[facility]06-16-2023 18:51-0400Diastolic blood zskjypnz01 mm[Hg]DO Joe Jauregui Work Phone: [facility]06-16-2023 18:51-0400 Heart rate91 /minDO Joe Jauregui Work Phone: [address] [place], [place] 3313906-16-2023 18:51-0400 Respiratory rate18 /minDKleber Jauregui Work Phone: [phone] [place], [place] 4994806-16-2023 18:51-0400 SaO2% (BldA) [Mass fraction]98 %DO Joe Jauregui Work Phone: [phone] [place], [place] 4994806-16-2023 18:51-0400 Systolic blood syibbjdl068 mm[Hg]DO Joe Jauregui Work Phone: [phone])259-[address] [place], [place] 4994806-16-2023 16:24-0400 Body ghqiym247.26 cmDO Joe Jauregui Work Phone: [phone]06-16-2023 16:24-0400 Body axiuuuvhlrg15.9 [degF]DO Joe Jauregui Work Phone: [phone] [place], [place] 4994806-16-2023 16:24-0400 Body .75 kgDO Joe Jauregui Work Phone: [phone] [place], [place] 4994805-12-2023 04:05-0400 Body eqdxpjvkyti64.3 [degF]DO Joe Jauregui Work Phone: [phone] [place], [place] 4994805-12-2023 04:05-0400 Diastolic blood lhywyrrx69 mm[Hg]DO Joe Jauregui Work Phone: [phone])814-[address] [place], [place] 4994805-12-2023 04:05-0400 Heart rate58 /Brooke Jauregui Work Phone: [phone])866-[address] [place], [place] 4994805-12-2023 04:05-0400 Respiratory rate16 /Brooke Jauregui Work Phone: [phone]05-12-2023 04:05-0400 SaO2% (BldA) [Mass fraction]93 %DO Joe Jauregui Work Phone: [phone]05-12-2023 04:05-0400 Systolic blood kcosybfi646 mm[Hg]DO Joe Jauregui Work Phone: [facility]05-11-2023 05:32-0400 Body oehuvu621.1 kgDO Joe Jauregui Work Phone: [facility]05-09-2023 13:01-0400 Body twmihc790.26 cmDO Joe Jauregui Work Phone: [facility]03-17-2023 09:40-0400 Blood Pressure LocationCadeepak DUGGAN [facility]03-17-2023 09:40-0400Diastolic blood xvtjsaby06 mm[Hg]Cali DUGGAN [facility]03-17-2023 09:40-0400Systolic blood smoeilnj838 mm[Hg]Cali DUGGAN [facility]03-08-2023 09:20-0500Body hwxifs557.26 cmAheather Garcia Other [facility] Other 504763-89-1169 09:20-0500Body mass index (BMI) [Ratio] 36.21 kg/m2Elisa Garcia Other [facility] Other 248277-37-1544 09:20-0500Body ldltussqiay82.4 [degF]Elisa Garcia Other [facility] Other 03-08-2023 09:20-0500Body ahgjlf709.22 kgElisa Garcia Other [facility] Other 03-08-2023 09:20-0500Diastolic blood skmawlnx76 mm[Hg] Elisa Garcia Other [employer] Other 03-08-2023 09:20-0500Respiratory rate18 /minAziz Bakharikas Other [place] [facility] Other 03-08-2023 09:20-1139BcK4% (BldA) [Mass fraction]97 % Aziz Bakhous Other [place] [facility] Other 03-08-2023 09:20-0500Systolic blood mm[Hg] Aziz Bakhous Other [place] [facility] Other 01-24-2023 14:20-0500Body yemqqo919.26 cmAziz Taylers Other [place] [facility] Other 01-24-2023 14:20-0500Body mass index (BMI) [Ratio] 35.32 kg/m2Aziz Bakhous Other [place] [facility] Other 01-24-2023 14:20-0500Body .9 [degF]Aziz Taylers Other [place] [facility] Other 01-24-2023 14:20-0500Body kddepw621.5 kgAziz Bakhous Other [employer] [facility] Other 01-24-2023 14:20-0500Diastolic blood yamzukhw61 mm[Hg] Aziz Bakhous Other [employer] [facility] Other 01-24-2023 14:20-0500Respiratory rate18 /minAziz Bakhous Other [employer] [facility] Other 01-24-2023 14:20-3110HiA9% (BldA) [Mass fraction]99 % Elisa Garcia Other [facility] Other 01-24-2023 14:20-0500Systolic blood mgsgauhe442 mm[Hg] Elisa Garcia Other [place] [facility] Other 12-15-2022 09:30-0500Body .26 cmHillary Panmahogany Other [facility] Other 12-15-2022 09:30-0500Body mass index (BMI) [Ratio] 36.32 kg/q8Gwtxac Vivianemahogany Other [employer] Other 12-15-2022 09:30-0500Body oeplunwpqse70.7 [degF]Hillary Yonathan Other [facility] Other 12-15-2022 09:30-0500Body hqamcc383.59 kgMatthewangely Panmahogany Other [employer] Other 12-15-2022 09:30-0500Diastolic blood hpifcqrf79 mm[Hg] Hillary Mcmanus Other [employer] Other 12-15-2022 09:30-1167FiE2% (BldA) [Mass fraction]97 % Hillary Mcmanus Other [employer] Other 12-15-2022 09:30-0500Systolic blood ygtvqgdb424 mm[Hg] Hillary Mcmanus Other [employer] Other 11-10-2022 13:45-0500Body .26 cmMafarrah Izaguirre Other [place] [facility] Other 11-10-2022 13:45-0500Body mass index (BMI) [Ratio] 36.32 kg/y8HyltoeuRoshan Izaguirre Other [place] [facility] Other 11-10-2022 13:45-0500Body sdxescrzrxb46.2 [degF] Roshan Izaguirre Other [place] [facility] Other 11-10-2022 13:45-0500Body irtqow717.59 kgMafarrah Izaguirre Other [place] [facility] Other 11-10-2022 13:45-0500Diastolic blood obrhnjid64 mm[Hg] Roshan Izaguirre Other [place] [facility] Other 11-10-2022 13:45-1787DvC6% (BldA) [Mass fraction]96 % Roshan Izaguirre Other [place] [facility] Other 11-10-2022 13:45-0500Systolic blood umojqkax060 mm[Hg] Roshan Izaguirre Other [place] [facility] Other 10-18-2022 10:34-0400Diastolic blood vdzvjurv43 mm[Hg] DO Joe Jauregui Work Phone: [facility]10-18-2022 10:34-0400 Heart rate50 /Brooke Jauregui Work Phone: [facility]10-18-2022 10:34-0400 Respiratory rate16 /minDO Joe Jauregui Work Phone: [phone] [place], [place] 4994810-18-2022 10:34-0400 SaO2% (BldA) [Mass fraction]94 %DO Joe Jauregui Work Phone: [phone] [place], [place] 4994810-18-2022 10:34-0400 Systolic blood jqtcidfa182 mm[Hg]DO Joe Jauregui Work Phone: [phone])208-[address] [place], [place] 4994810-18-2022 09:34-0400 Inhaled oxygen flow rate8 L/PatsyO Joe Jauregui Work Phone: [phone] [place], [place] 4994810-18-2022 07:10-0400 Body .26 cmDO Joe Jauregui Work Phone: [phone] [place], [place] 4994810-18-2022 07:10-0400 Body mass index (BMI) [Ratio]34.7 kg/m2DO Joe Jauregui Work Phone: [phone] [place], [place] 4994810-18-2022 07:10-0400 Body .59 kgDO Joe Jauregui Work Phone: [phone] [place], [place] 4994810-18-2022 06:39-0400 Body dfqlrezcjxr74.7 [degF]DO Joe Jauregui Work Phone: [phone] [place], [place] 4994810-10-2022 15:00-0400 Diastolic blood slqmxelt64 mm[Hg]DO Joe Jauregui Work Phone: [address] [place], [place] 3313910-10-2022 15:00-0400 Heart rate62 /Brooke Jauregui Work Phone: [address] [place], [place] 3313910-10-2022 15:00-0400 Respiratory rate16 /Brooke Jauregui Work Phone: [facility]10-10-2022 15:00-0400 SaO2% (BldA) [Mass fraction]100 %DO Joe Jauregui Work Phone: [address] [place], [place] 3313910-10-2022 15:00-0400 Systolic blood gbgfvyef673 mm[Hg]DO Joe Jauregui Work Phone: [facility]10-10-2022 12:07-0400 Body sbixbv531.26 cmDO Joe Jauregui Work Phone: [facility]10-10-2022 12:07-0400 Body jrsdna714.86 kgDO Joe Jauregui Work Phone: [facility]10-05-2022 10:00-0400 Body emayhi207.26 cmHillary Mcmanus Other [place] [facility] Other 10-05-2022 10:00-0400Body mass index (BMI) [Ratio] 36.32 kg/x1QsogcjHillary Mcmanus Other [place] [facility] Other 10-05-2022 10:00-0400Body hortxvlbcla45 [degF]Hillary Mcmanus Other [place] [facility] Other 10-05-2022 10:00-0400Body brczha269.59 kgHillary Mcmanus Other [facility] Other 10-05-2022 10:00-0400Diastolic blood nqnqhpuk30 mm[Hg] Hillary Mcmanus Other [facility] Other 10-05-2022 10:00-4912LbY9% (BldA) [Mass fraction]97 % Hillary Mcmanus Other [employer] Other 10-05-2022 10:00-0400Systolic blood mm[Hg] Hillary Mcmanus Other [employer] Other 09-28-2022 16:40-0400Body rkxxet717.26 cmAheather Garcia Other [facility] Other 09-28-2022 16:40-0400Body mass index (BMI) [Ratio] 36.44 kg/m2Elisa Garcia Other [employer] Other 09-28-2022 16:40-0400Body pdtabepcxme43.3 [degF]Elisa Garcia Other [employer] Other 09-28-2022 16:40-0400Body tbbyrz383.95 kgElisa Garcia Other [employer] Other 09-28-2022 16:40-0400Diastolic blood gcrzyykp90 mm[Hg] Elisa Garcia Other [facility] Other 09-28-2022 16:40-0400Respiratory rate18 /minElisa Garcia Other [employer] Other 09-28-2022 16:40-4052TgB9% (BldA) [Mass fraction]97 % Elisa Garcia Other [place] [facility] Other 09-28-2022 16:40-0400Systolic blood hropckcj896 mm[Hg] Elisa Lesters Other [employer] Other 09-06-2022 10:32-0400Diastolic blood pjgmvmud61 mm[Hg] DO Joe Jauregui Work Phone: [facility]09-06-2022 10:32-0400 Heart rate59 /minDO Joe Jauregui Work Phone: [facility]09-06-2022 10:32-0400 Respiratory rate16 /Brooke Jauregui Work Phone: [facility]09-06-2022 10:32-0400 SaO2% (BldA) [Mass fraction]96 %DO Joe Jauregui Work Phone: [facility]09-06-2022 10:32-0400 Systolic blood sruthcxg289 mm[Hg]DO Joe Jauregui Work Phone: [address] [place], [place] 3313909-06-2022 07:02-0400 Body lcxgyx493.26 cmDO Joe Jauregui Work Phone: [facility]09-06-2022 07:02-0400 Body mass index (BMI) [Ratio]35.4 kg/m2DO Joe Jauregui Work Phone: [address] [place], [place] 3313909-06-2022 07:02-0400 Body utsdxx018.86 kgDO Joe Jauregui Work Phone: [facility]09-06-2022 06:23-0400 Body sniiyygxunz48.9 [degF]DO Joe Jauregui Work Phone: [facility]08-24-2022 10:30-0400 Body umuqlm058.26 cmMafarrah Izaguirre Other [facility] Other 08-24-2022 10:30-0400Body mass index (BMI) [Ratio]38.1 kg/w7Pkrseoofarrah Izaguirre Other [facility] Other 08-24-2022 10:30-0400Body ouwcvjzoieo04.9 [degF] Roshan Izaguirre Other [facility] Other 08-24-2022 10:30-0400Body nsoghs242.03 kgMatttara Izaguirre Other [place] [facility] Other 08-24-2022 10:30-0400Diastolic blood jqimskia56 mm[Hg] Roshan Zina Other [facility] Other 08-24-2022 10:30-1195MyX2% (BldA) [Mass fraction]97 % Roshan Izaguirre Other [place] [facility] Other 08-24-2022 10:30-0400Systolic blood fylbvmms371 mm[Hg] Roshan Zina Other [place] [facility] Other 07-12-2022 12:50-0400Diastolic blood xcmdmpak21 mm[Hg] DO Joe Jauregui Work Phone: [facility]07-12-2022 12:50-0400 Heart rate58 /Brooke Jauregui Work Phone: [facility]07-12-2022 12:50-0400 Respiratory rate16 /PatsyO Joe Jauregui Work Phone: [facility]07-12-2022 12:50-0400 SaO2% (BldA) [Mass fraction]96 %DO Joe Jauregui Work Phone: [facility]07-12-2022 12:50-0400 Systolic blood hpkdgedj650 mm[Hg]DO Joe Steven Work Phone: [facility]07-12-2022 12:05-0400 Inhaled oxygen flow rate6 L/PatsyO Joe Steven Work Phone: [facility]07-12-2022 09:24-0400 Body mass index (BMI) [Ratio]33.7 kg/m2DO Joe Jauregui Work Phone: [facility]07-12-2022 09:19-0400 Body aciwpe273.8 cmDO Joe Jauregui Work Phone: [facility]07-12-2022 09:19-0400 Body bjcnoq428.59 kgDO Joe Jauregui Work Phone: [facility]07-12-2022 08:40-0400 Body wzdrsyelnuz27.9 [degF]DO Joe Jauregui Work Phone: [facility]06-23-2022 12:30-0400 Body hgotmx472.26 cmHillary Mcmanus Other [place] [facility] Other 06-23-2022 12:30-0400Body mass index (BMI) [Ratio]38.1 kg/x5UohgweHillary Mcmanus Other [place] [facility] Other 06-23-2022 12:30-0400Body vwdsodfiibi47.4 [degF]Hillary Mcmanus Other [place] [facility] Other 06-23-2022 12:30-0400Body .03 kgHillary Mcmanus Other [place] [facility] Other 06-23-2022 12:30-0400Diastolic blood mm[Hg] Hillary Mcmanus Other [facility] 06-23-2022 12:30-1799DfB8% (BldA) [Mass fraction]97 % Hillary Mcmanus Other [place] [facility] Other 06-23-2022 12:30-0400Systolic blood bzxeslmq854 mm[Hg] Hillary Mcmanus Other [employer] [facility] Other 05-10-2022 16:40-0400Body ogncwr958.26 cmAleylaantonia Garcia Other [employer] Other 05-10-2022 16:40-0400Body mass index (BMI) [Ratio]38.1 kg/m2Aziz Bakharikas Other [employer] Other 05-10-2022 16:40-0400Body svwuwlhtifa64.7 [degF]Azalyse Taylers Other [employer] Other 05-10-2022 16:40-0400Body .03 kgAzalyse Taylers Other [employer] Other 05-10-2022 16:40-0400Diastolic blood mifqzify556 mm[Hg]Aziz Bakharikas Other [employer] Other 05-10-2022 16:40-0400Respiratory rate18 /minAzalyse Bakharikas Other [facility] Other 05-10-2022 16:40-0167LwU4% (BldA) [Mass fraction]97 % Aziz Bakhous Other [facility] Other 05-10-2022 16:40-0400Systolic blood mm[Hg] Aziz Bakhous Other [facility] Other 03-12-2022 10:15-0500Body .26 Marilyn Norris Other [facility] Other 03-12-2022 10:15-0500Body mass index (BMI) [Ratio] 38.39 kg/b4Hayvewomg Myrna Other [facility] Other 03-12-2022 10:15-0500Body rnzypinspgc35.1 [degF] Meliza Leeault Other [facility] Other 03-12-2022 10:15-0500Body oerxen632.94 kgStadelso Leeault Other [facility] Other 03-12-2022 10:15-0500Diastolic blood mkvsvyez47 mm[Hg] Meliza Myrna Other [facility] Other 03-12-2022 10:15-0500Respiratory rate18 /minSjaun david Myrna Other [facility] Other 03-12-2022 10:15-5904MlW3% (BldA) [Mass fraction]98 % Meliza Myrna Other [facility] Other 03-12-2022 10:15-0500Systolic blood mm[Hg] Meliza Myrna Other [facility] Other 12-07-2021 17:00-0500Body xhpheh141.26 Albert Schrader Other [facility] Other 12-07-2021 17:00-0500Body mass index (BMI) [Ratio] 38.52 kg/c7PnqvaLeela Schrader Other [facility] Other 12-07-2021 17:00-0500Body jlbdecoeymn31.1 [degF]Leela Schrader Other [facility] Other 12-07-2021 17:00-0500Body xrjfio987.34 kgLeela Schrader Other [facility] Other 12-07-2021 17:00-0500Diastolic blood zizqtqcv498 mm[Hg]Leela Schrader Other [facility] Other 12-07-2021 17:00-0500Respiratory rate18 /minEmojgan Schrader [facility] 12-07-2021 17:00-3364HcY2% (BldA) [Mass fraction]98 % Leela Schrader Other [facility] Other 12-07-2021 17:00-0500Systolic blood fsbbezkk194 mm[Hg] Leela Schrader Other [facility] Other Encounters Encounter DateEncounter TypeCare ProviderFacilityStart: 89-31-3369ahrkyghrky YOHANNES MENESESOhioHealth [facility]ering[facility] Hospitaltart: 01-14-2025 End: 16-30-6501yhetqbuswtGVHLW YAOhio Valley Surgical Hospitaltart: 01-06-2025 End: 21-48-0196Hsomjwg encounter procedureMicavani Marin CARTOGRAPHIC AIDE Work Phone: [facility] Work Phone: Start: 01-06-2025 End: 82-73-9782Gpwbjwlk preventive med est patient 40-64yrsMichmary lou Marin CARTOGRAPHIC AIDE Work Phone: [facility] Internal MedicineComment on above:Annual physical exam (Primary Dx); Pure hypercholesterolemia; Renovascular hypertension; Prediabetes; End-stage renal failure with renal transplant (HCC); ADPKD (autosomal dominant polycystic kidney disease); Secondary hyperparathyroidism (HCC); Moderate major depression (HCC); FILIPPO (generalized anxiety disorder); Immunosuppressed status (HCC); Vitamin D deficiency; History of gout; S/P kidney transplant (HCC); Elevated alkaline phosphatase levelStart: 01-06-2025 End: 42-80-9651kckxjgsbppUCBQCHJ L POULOSNot AvailableStart: 12-27-2024 ambulatoryCleveland Clinic Mercy Hospitaltart: 12-15-2024 End: 27-82-2652mmnqspjlvdGCXCKMercy Health St. [facility] Warren Hospitaltart: 33-55-0388cuqjygrskuXQNJMTThe Christ Hospitaltart: 12-02-2024 End: 13-19-3824dfvacdsofbKZFGOMercy Health St. Joseph Warren Hospitaltart: 11-19-2024 End: 15-83-3764ifohplilzgUXPWBMercy Health St. [facility] Hospitaltart: 11-17-2024 End: 66-23-6048acxpvzxhkmFECZDMercy Health St. [facility] Hospitaltart: 11-67-0625ljegkotpefJHUVOJThe Christ Hospitaltart: 11-11-2024 End: 50-31-1030Dkgifg outpatient visit 25 minutesFeliccara Beavers FLAME CUTTER-SP[employer] HOST Work Phone: NOKS [facility] Behavioral HealthComment on above:Moderate episode of recurrent major depressive disorder (HCC)Start: 11-11-2024 End: 57-34-0492qdrypzasaxODEWAQRSravan Burgess AvailableStart: 11-11-2024 End: 54-37-5142Ddfpbu flowsheetYanira Beavers FL[employer] C[employer] HOST Work Phone: [facility] HealthStart: 11-11-2024 End: 86-52-7401Hczqrh flowsheetFelicia Abel Luan FLAME C[employer]TER[employer]SP[employer] HOST Work Phone: [facility] HealthStart: 11-07-2024 ambulatoryJORDYN [facility] Centertart: 11-03-2024 End: 87-53-9860ovxdfrxkbzMELXT [facility]ertart: 10-22-2024 End: 82-67-6304FvzgzsJanki Najera [facility] Work Phone: davery Adrian [facility] - Medical OncologyComment on above:Kidney transplant recipient (Primary Dx)Start: 10-20-2024 End: 29-80-4333moohwtuvteAZWLYEUniversity Hospitals [facility] Start: 10-17-2024 End: 56-32-4018qlntsaksowANIBJRGalion Community Hospital Start: 10-16-2024 End: 11-86-7000Xbspsuvlw department patient visitONSLOW MEMORIAL HOSPITALDELROY [facility] Systemtart: 10-15-2024 End: 36-99-4214bmamfwgjtmRLKZFKCenterville Start: 10-15-2024 End: 75-69-0612fqoeotxdqsVADWPEUniversity [facility]als [facility] Start: 10-13-2024 End: 89-72-1348gppjlxxjizQETJYHUniversity Hospitals [facility] Start: 10-13-2024 End: 13-72-7517qwrgngwwoxEYUAJJSt. [facility] Start: 76-47-8913Ovewtrtang and management of inpatientJORDYN [facility] Hospitaltart: 55-33-2808Jnabhrjsxa and management of inpatientJORDYN [facility] Centertart: 10-07-2024 Evaluation and management of inpatientSSOFI [facility]lsen [facility]tart: 57-62-0158Crfffytjxw and management of inpatientJORDYN [facility] Hospitaltart: 10-06-2024 End: 03-83-4646Jjfzodduck and management of inpatientKUNAL [facility] Centertart: 15-99-6439kkzqxaxxoyMKKTMLThe University of [facility] Medical Centertart: 12-43-2174velsxalhlgOXLOORThe University of [facility] Medical Centertart: 09-10-2024 End: 87-05-9370zifnobmpslQZVSU [facility]ertart: 37-00-9907lcjbwzsltfONYTZRThe University of [facility] Medical Centertart: 08-20-2024 End: 75-91-8041txqiebncyeSWHQUOUX DAVIDBucyrus Community Hospital Start: 08-13-2024 End: 69-60-5110Rviedddvg Result EncounterGeneric External Data ProviderNOMS External Department UnsolicitedStart: 08-13-2024 End: 91-39-2752Kiafikquy Result EncounterGeneric External Data ProviderNOMS External Department UnsolicitedStart: 08-06-2024 End: 28-47-7303moxcbeofudYMCQWBluffton Hospitaltart: 07-25-2024 End: 02-25-5305pshthgzavwOQVJJOUniversity Hospitals [facility] Start: 16-87-4303mpsvxmfekbVPKOGWUniversity Hospitals [facility] Start: 07-14-2024 End: 15-55-0616txotpsfsovQhjsqajbkHolzer Health System Work Phone: Start: 07-14-2024 End: 18-81-8104Icbkqon encounter procedureUnc Health [facility] [place] Work Phone: Start: 07-14-2024 End: 93-58-2289iqjgvqbkdiJGEXSTOhio State Health Systemtart: 68-56-3068hizisadjcqWHMROHThe University of [facility]edo Medical Centertart: 07-11-2024 End: 18-10-7144ynusbctunjFPOJRZCenterville Start: 36-07-1153gwwkisdgjjEMSWZB [facility] Start: 06-27-2024 End: 63-37-5663uskjrvebtaKYIFJR [facility] Start: 06-27-2024 End: 92-37-2311eugptmulthJKKTAH [facility] Start: 06-24-2024 End: 22-06-4685zinzsnwpohEPUTHHGSravan Burgess AvailableStart: 06-11-2024 End: 30-14-3955tgzlqjqjbuCHAFFBluffton Hospitaltart: 07-01-4688giifrmuqjiMPVGXP [facility]ertart: 06-03-2024 End: 52-21-8516hhqyffzqgjVOFQ [facility]tart: 05-28-2024 End: 71-70-4975jrqopsgaeaIHLOSBluffton Hospitaltart: 05-26-2024 End: 11-21-3690mpywxbzitbLTCBRW [facility] Start: 69-95-8534Ckt-patient / Non-visitFirelands Physician Group-Subhash [facility] Work Phone: Start: 54-47-6295cuskqqcvipCEUREC [facility] Centertart: 05-21-2024 End: 94-48-6644laexnzhhqcJDQNE [facility]ertart: 06-17-4138wtvlvjnhncWKYFNISW [facility]tart: 05-19-2024 End: 78-06-0185xmbewrfnwiKWAOTI [facility] Start: 05-16-2024 End: 77-38-7099qsyrdjphemHKYKLW [facility] Start: 05-14-2024 End: 90-73-5891zmvxqpkpjkYUTUQ [facility]tart: 05-12-2024 End: 72-87-9462znlfjuaddsTXJQRZ [facility] Start: 05-09-2024 End: 29-21-5802ulbnnubmwuSHRBZO [facility] Start: 66-29-3163wychylyghmGLNTTRGB [facility]tart: 05-09-2024 End: 22-97-1575aegmxbtkaoSTXENC [facility] Start: 84-86-4532Qipgmciphl and management of inpatientJORDYN [facility] Hospitaltart: 05-07-2024 End: 01-16-9582Hlmvdxkzja and management of inpatientJORDYN [facility] Centertart: 40-27-7076Vavykavegw and management of inpatient SUDHEER [facility] Centertart: 78-13-1108Btbzcaxijm and management of inpatientKUNAL [facility] Centertart: 83-04-6643Xwzwknnntb and management of inpatientKUNAL [facility]ertart: 79-47-6543Vombznyxgt and management of inpatientKUNAL [facility]tart: 05-03-2024 End: 01-84-1472Iqyuaakkvh and management of inpatientKUNAL [facility]ertart: 05-03-2024 End: 08-06-6269kqjulhcivjOEGXCBluffton Hospitaltart: 05-03-2024 End: 14-07-3811zslpaqhdgjDFMXPR [facility] Start: 70-17-3977pydinrlqmzQPRRXE [facility] Start: 01-14-0536Pya-patient / Non-visitFirelands Physician Group-Subhash [employer] Work Phone: Start: 03-31-2024 End: 43-50-2822Gtuwyamgq Result EncounterGeneric External Data ProviderNOMS External Department UnsolicitedStart: 03-31-2024 End: 21-18-6841Nuvbfvxkj Result EncounterGeneric External Data ProviderNOMS External Department UnsolicitedStart: 03-31-2024 End: 53-94-6372Haturbybxc hospital visit by physicianEla Rivera Mri [address] [place] [address] Medical Office BuildingComment on above:Vocal fold paralysis, right Start: 03-31-2024 End: 43-06-5211tbtexqejyxUJIVNewark Hospital Start: 16-58-6262bbfzehbfhjGQFDLQSt. [facility] Start: 03-64-7816Hbhfusoii for other preprocedural examinationJORegency Hospital Companytart: 03-04-2024 End: 78-64-5212Jsiouz outpatient visit 25 minutesJessenia Bello MD Work Phone: uh [facility] FacilityComment on above: Dysphonia (Primary Dx); Vocal fold paralysis, rightStart: 51-06-5484rdjgsjjnioJBNIWyandot Memorial Hospitaltart: 02-14-2024 End: 05-89-6148Akzrew flowsheetFelicia M Tali-Nossek FLAME C[employer]TER-SPA HOST Work Phone: [facility] CI BHStart: 02-14-2024 End: 02-83-6151Lqqjif flowsheetFelicia M Tali-Nossek FLAME C[employer]SP[employer] HOST Work Phone: [facility] CI BHStart: 02-14-2024 End: 16-57-3382Igluac outpatient visit 25 minutesFelicia M Tali-Nossek FLAME CUTTER-SPA HOST Work Phone: [facility] CI BHComment on above:Insomnia, unspecified type; Moderate episode of recurrent major depressive disorder (CMS/HCC)Start: 02-14-2024 End: 45-03-3971lnvfnxfqjeAECNCAX M TALI-NOSSEKNot AvailableStart: 01-15-2024 End: 98-40-1779Hvnjwy consultation new/estab patient 80 Francisco Javier Bello MD Work Phone: [facility] CenterComment on above: Dysphonia (Primary Dx); Vocal fold paralysis, right; 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]Start: 01-15-2024 End: 53-85-8181rxicbgjiyuVAOD W [facility]tart: 12-04-2023 End: 78-46-4538Sntrsd outpatient visit 15 minutesHitoyin Arndt MD Work Phone: noms CI ENTComment on above: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)Start: 12-04-2023 End: 93-00-3776Edddtj flowsMarivel Arndt MD Work Phone: noms CI ENTStart: 12-04-2023 End: 75-94-8280Mkyrgp Moose Arndt MD Work Phone: noms CI ENTStart: 11-20-2023 End: 08-16-7569Icmpfc outpatient new 45 minutesHitoyin Arndt MD Work Phone: noms CI ENTComment on above: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 [facility] Work Phone: Start: 09-06-2023 End: 67-35-8494Dmznonp encounter procedureUnc Health [facility] [place] Work Phone: Start: 30-15-1258Slh-patient / Non-visitUnc Health [facility]-[employer] Work Phone: Start: 81-08-6011Zar-patient / Non-visitUnc Health [facility]-[employer] Work Phone: Start: 69-79-5066Gdurjxemt for other preprocedural examinationJORAMYA [facility] Centertart: 04-12-2023 End: 22-08-9287dckjagrwytOiuxyux GarmanFacility:[facility] Centertart: 04-09-2023 End: 57-01-5509stzsyrjatcFbabwlw GarmanFacility:[facility] Centertart: 09-15-2022 End: 42-89-3521Olwjcuxpl department patient visitArthnelly Huerta Facility:[facility] Centertart: 09-15-2022 End: 98-26-6696Wislxxvtt department patient visitDO Joe Jauregui Work Phone: [facility]Emer[facility] Work Phone: Start: 08-07-2022 End: 00-28-3951Ywcvvyiyau and management of inpatientRuta Shon Facility:[facility] Centertart: 08-07-2022 End: 11-37-4662Mwpvoifthm and management of inpatientDO Joe Jauregui Work Phone: [facility] [place] [facility] Work Phone: Start: 08-07-2022 End: 37-95-3058dabgtqxlikPH JEFFREY GARMANFacility:G0Aqela: 07-11-2022 End: 79-66-5408hhcudrqlylVxrpvul R WATERSFacility:FTMCStart: 07-11-2022 End: 56-50-8300Fyrbtik encounter procedureCali DUGGAN [facility] Start: 59-08-4255Kkbpezmth encounterDashital Ledesma DO Work Phone: GastroenterologyComment on above:Patient UpdateStart: 06-16-2022 End: 05-12-2436ygxybodwriLvjhjeh R WATERSFacility:EU BellevueStart: 06-16-2022 End: 33-49-1001Dgwgjkk encounter procedureCali DUGGAN [facility] start: 06-09-2022 End: 82-98-0746meyvfwgxpsDdvl BakhousFacility:[facility] Start: 06-09-2022 End: 23-29-8117ktecswtdihRF Joe Jauregui Work Phone: [facility] Work Phone: Start: 06-09-2022 End: 41-92-6901Ddqgdrr encounter procedureDO Joe Jauregui Work Phone: [facility] Work Phone: Start: 62-37-9898Oumzfzeai encounterAzalyse Roche NephrologyStart: 06-08-2022 End: 01-59-1517kapdoocygvYnvp BakharikasFacility:[facility] Start: 06-08-2022 End: 58-20-0387xtekasoimrOD Joe Jauregui Work Phone: [facility] Work Phone: Start: 06-08-2022 End: 77-79-3023Vubawcb encounter procedureDO Joe Jauregui Work Phone: [facility]-Lab [facility]tart: 06-07-2022 End: 80-65-0344ltkmegjvupNsxx Bakharikas Other Nort discoapi Other Start: 05-34-7561Qmkmsx outpatient visit 25 minutes Aziz BakharikasPADMINIG NephrologyStart: 27-07-1845Ollhbxgje encounterAziz BakharikasFPG NephrologyStart: 06-06-2022 End: 46-29-1905mjilaugfatXwdb BakhousFacility:[facility] Start: 06-06-2022 End: 90-52-3688zzckxpffwlCX Joe Jauregui Work Phone: [facility] Work Phone: Start: 06-06-2022 End: 08-15-3627Hbaezrl encounter procedureDO Joe Jauregui Work Phone: [facility]-Lab [facility] [place] Work Phone: Start: 04-25-2022 End: 02-24-9054zigrcteedtQugo Bakhous Other [place] discoapi Other Start: 55-18-6179Meqtbq outpatient visit 25 minutes Elisa Roche NephrologyStart: 81-36-9870wazohmrlpvMewsduj WATERSFacility:CHAD BellevueStart: 04-17-2022 End: 48-40-4813svjxrjnkgqGH Joe Jauregui Work Phone: [facility] Work Phone: Start: 04-17-2022 End: 77-55-8822Uzccscb encounter procedureDO Joe Jauregui Work Phone: [facility] Hospitaltart: 03-31-2022 End: 47-32-7442uueimseqreQF Jeffrey Garman Work Phone: [facility] Work Phone: Start: 03-31-2022 End: 32-63-1779Hmdurbq encounter procedureDO Joe Jauregui Work Phone: [facility]tart: 03-26-2022 End: 85-26-0697tvbyscwkttUWZBSQ RODRIGUEZ .Facility:W2Cceav: 15-23-4918Crionp-up encounterShamirgregory JavidPG Vascular SurgeryStart: 03-16-2022 End: 97-88-9993suthxittgvBL Jeffrey Garman Work Phone: [facility] Work Phone: Start: 03-16-2022 End: 12-21-0215Kdjuqhm encounter procedureDO Joe Jauregui Work Phone: [facility]-Ultrasound [facility] VascularStart: 02-09-2022 End: 11-34-7007hpfljqgzcnGsyparf Zina Other [employer] Other Start: 18-88-7804Zxafdv follow up visit related to original pxMatthew LangenbergFPG Vascular SurgeryStart: 01-19-2022 End: 20-70-7227ripgpjdcscUxqczdv Langenberg Other [employer] Other Start: 04-29-2983Xrrseaulo encounterMattteresaw Zina FPG Vascular SurgeryStart: 01-18-2022 End: 47-48-3046uqunpxkyesKkpzrgc Zina Other [employer] Other Start: 14-94-4860Qaemtkrek encounterMatttara Izaguirre FPG Vascular SurgeryStart: 01-17-2022 End: 96-92-5730Llagnoamo to same day surgery centerDO Joe Jauregui Work Phone: [facility] Main CampusStart: 01-17-2022 End: 91-91-7779timgjhtscyHW Jeffrey Garman Work Phone: [facility] Work Phone: Start: 01-16-2022 End: 25-40-5722lumgrqklslGbjdbod Langenberg Other [employer] Other Start: 08-98-2930Eskytrmex for other preprocedural examinationMatthew [facility] Vascular SurgeryStart: 97-56-8069Pgghjpogn encounterMatthew [facility] Vascular SurgeryStart: 01-13-2022 End: 39-30-2363cxmqbhxvzeOT Joe Jauregui Work Phone: [facility] Work Phone: Start: 01-13-2022 End: 40-71-1966Kbefstt encounter procedureDO Joe Jauregui Work Phone: [facility] Jyj-Kvz-Rbucskkf Testing Start: 01-09-2022 End: 13-22-2925Lkszzjgvv to same day surgery centerDO Joe Jauregui Work Phone: [facility]-Interventional RadiologyStart: 01-09-2022 End: 26-60-9804jixiaagxybAO Joe Jauregui Work Phone: [facility] Work Phone: Start: 38-52-0418Jtphli-up encounterJaangely Hua Vascular SurgeryStart: 01-04-2022 End: 57-33-3049zhsdjrqnwsOL Jeffrey Garman Work Phone: [employer] Other Start: 01-04-2022 End: 54-49-7405Wxisrti encounter procedureDO Joe Jauregui Work Phone: [facility]trasound [facility] VascularStart: 12-28-2021 End: 91-15-2341ohjhrvtsnzAikz Bakhous Other [employer] Other Start: 35-57-6545Jhtbay outpatient visit 25 minutes Elisa Roche NephrologyStart: 12-06-2021 End: 84-87-9720Abqmvkred to same day surgery centerDO Joe Jauregui Work Phone: [facility]Start: 12-01-2021 End: 19-51-9933Pgsdiuh encounter procedureDO Joe Jauregui Work Phone: [facility]-Pre-Surgical Testing Start: 11-23-2021 End: 48-47-9106zawzfaufosWlpbvto Langenberg Other nocox [place] discoapi Other Start: 03-65-4925Qmrezlvlz for other preprocedural examinationMatthew LangenbergFPG Vascular SurgeryStart: 39-97-4749Ucekba follow up visit related to original pxMatthew LangenbergFPG Vascular SurgeryStart: 34-50-2284Nbpnoclds encounterMatthew LangenbergFPG Vascular SurgeryStart: 11-23-2021 End: 00-70-2901Joyattv encounter procedureDO Joe Jauregui Work Phone: [facility]tras[facility] VascularStart: 10-18-2021 End: 70-73-7748Zhmbach encounter procedureDO Joe Jauregui Work Phone: [facility] Hospitaltart: 10-11-2021 End: 72-22-8283Cgvqaqfgh to same day surgery centerDO Joe Jauregui Work Phone: [facility]-Surgery [facility]onStart: 10-06-2021 End: 41-20-7381czfctwsiacQssb Bakhous Other [facility]ox [place] discoapi Other Start: 40-34-7364Hghbutcer encounterAzalyse Roche NephrologyStart: 10-06-2021 End: 14-04-1071Mbxgaty encounter procedureDO Joe Jauregui Work Phone: [facility]-Pre-Surgical Testing Start: 10-04-2021 End: 42-46-8552banvivtqzsEIFFM PARKERFacility:N9Jubpk: 09-23-2021 End: 44-61-9144tluerzigstVgyogdg Zina Other noPiCloud Other Start: 01-91-6247Ksopurcpw for other preprocedural examinationMatthew LangenbergFPG Vascular SurgeryStart: 47-57-8008Fpdorqera encounterMatthew LangenbergFPG Vascular SurgeryStart: 09-22-2021 End: 56-71-0905sttzceunbiAehrzo Ruttino Other noPiCloud Other Start: 77-24-7702WZRA visit new patientHillary Mcmanus [facility] Vascular SurgeryStart: 09-22-2021 End: 96-71-5715Ehyzrgq encounter procedureDO Joe Jauregui Work Phone: [facility]-Ultras[facility] VascularStart: 08-09-2021 End: 05-80-8593vmccrrhvnyLkyu Bakhous Other noPiCloud Other Start: 11-35-7923Fgcdiv outpatient visit 25 minutes Azalyse GarciaFPG Nephrology ClydeStart: 06-11-2021 End: 76-33-7319jaryexczbhXrqdymytm Myrna Other noPiCloud Other Start: 97-10-3044Jfggcy outpatient visit 15 minutes Meliza NorrisFPG Urgent Care ClydeStart: 03-16-2021 End: 53-28-7525zxqwmpffgcUwfni Hykes Other [employer] Other Start: 82-01-8553Qduqtpfxq encounterDavid HykesFPG GastroenterologyStart: 03-09-2021 End: 49-21-3350gyxliffpriRdqqj Hykes Other [employer] Other Start: 81-76-6325Stuzlirbu encounterDavid Janett GastroenterologyStart: 03-08-2021 End: 50-40-3881uvfmwifzawIjora Elashi Other Nort discoapi Other Start: 74-83-1661Rhzcmg outpatient visit 25 minutes Essidania SchraderFPGabriela [facility] [place] Procedures DateProcedureProcedure DetailPerforming ClinicianStart: 37-55-7404Xqlauop of renal transplantKidney transplant recipientPatriccara Najera [facility] Work Phone: Start: 08-13-2024. DIFFICILE PCRGeneric External Data ProviderStart: 82-17-8689Xbrdgk-up visitJORDYN BLOCKSBURGStart: 05-09-2024 Follow-up visitJORDYN BLOCKSBURGStart: 55-55-9314SK IAC W AND WO IV CONTRAST Generic External Data ProviderStart: 93-67-2767JeayqcwueiwQqybpd Timmis MD Work Phone: Start: 59-25-7555ZK of abdomen and pelvis without contrastDO Joe Jauregui Work Phone: Start: 42-43-1766Shmwseczktc measurementDO Joe Jauregui Work Phone: Start: 33-13-1570VnrbyrgigmhOrtr Zhao MD Work Phone: Start: 91-20-1944Vqddv chest X-rayDO Joe Jauregui Work Phone: Start: 25-32-4873Atvha cultureDO Joe Jauregui Work Phone: Start: 48-00-0200Neygevoeznhvkdq of arteriovenous fistulaDO Joe Jauregui Work Phone: Start: 94-15-7110Vbutwwmfghqzs fistulizationDO Joe Jauregui Work Phone: Start: 66-27-8898YZ Fistulogram/TLA Stent (Left)DO oJe Jauregui Work Phone: Start: 20-38-8230Mfyneudczsnljjz of arteriovenous fistulaDO Joe Jauregui Work Phone: Start: 83-96-5345Bqceglbgjpjhz fistulizationDO Joe Jauregui Work Phone: Start: 75-54-7055Soyzzrsqjw (US) doppler flow mapping of vein of upper limbDO Joe Jauregui Work Phone: Start: 35-49-6228Lxzjwjeldyswr fistulizationDO Joe Jauregui Work Phone: Start: 42-32-6831VQ angiographyDO Joe Jauregui Work Phone: Start: 25-00-8902Qpvzlthgqjwzrkislgxnizarmj gastric outlet reductionPatrick URBAN Start: 17-63-1617tqbklcwn dorsal mass, left handPatrick URBAN Start: 76-93-7617Ncqprufmz hernia (disorder)Calidevika DUGGAN Start: 41-33-5686Xseufbedn hernia (disorder)Cali DUGGAN Entire hand (body structure)Cali DUGGAN Comment on above:17 years agoHerniated structure (morphologic abnormality)Cali DUGGAN History of renal transplantKidney transplantedComment on above:05/2024History of renal transplantS/P kidney transplant (HCC)Gregory Marin CARTOGRAPHIC AIDE Work Phone: Plan of Treatment DateCare ActivityDetailAuthorStart: 34-57-5706Aghyzvcxu for malignant neoplasm of colonNOMS HealthcareStart: 59-71-7910Bkdytvgti for malignant neoplasm of colonUnEast Liverpool City HospitalStmaine: 37-01-3746Ssjuyx Vaccines (1 of 2) Zoster Vaccines (1 of 2)Corey HospitalStmaine: 50-37-4669IKUOZ SCREENLIPID SCREENFremont ClinicStart: 07-14-2025 End: 24-73-8738Jzvhpqz encounter oldqvnavd22/14/2026 8:45 AM EDT Office Visit [facility] [address] [place] [address] [facility] Internal MedicineStart: 07-05-2025 End: 299698-yoeytoiwetrbeb D3 [Mass/volume] in Serum or PlasmaVitamin D 25 hydroxy Total Lab Routine Vitamin D deficiency Expected: 07/05/2025 (Approximate), Expires: 01/01/2026[facility] Work Phone: Comment on above:Expected: 07/05/2025 (Approximate), Expires: 01/01/2026Start: 07-05-2025 End: 57-68-4418Ugqezovu phosphatase, isoenzymesAlkaline phosphatase, isoenzymes Lab Routine Vitamin D deficiency Elevated alkaline phosphatase level Expected: 07/05/2025 (Approximate), Expires: 01/01/2026[facility] HealthcareComment on above: Expected: 07/05/2025 (Approximate), Expires: 01/01/2026Start: 07-05-2025 End: 90-85-5167Gefttfvnpejiv metabolic 2000 panel - Serum or PlasmaComprehensive metabolic panel Lab Routine Prediabetes Expected: 07/05/2025 (Approximate), Expires: 01/01/2026[facility] HealthcareComment on above:Expected: 07/05/2025 (Approximate), Expires: 01/01/2026Start: 07-05-2025 End: 36-75-1996Cjnruejxue a1c with eagHemoglobin a1c with eag Lab Routine Prediabetes Expected: 07/05/2025 (Approximate), Expires: 01/01/2026[facility] HealthcareComment on above:Expected: 07/05/2025 (Approximate), Expires: 01/01/2026Start: 07-05-2025 End: 27-79-9910Ccuqz 1996 panel - Serum or PlasmaLipid panel Lab Routine Pure hypercholesterolemia Expected: 07/05/2025 (Approximate), Expires: 01/01/2026[facility] HealthcareComment on above:Expected: 07/05/2025 (Approximate), Expires: 01/01/2026Start: 02-11-2025 End: 14-41-2944Xvjytgv encounter eunqevdeu56/12/2025 4:30 PM EST Office Visit [facility] [address] [place] [address] Yanira Beavers, FLAME CUTTER-SPA HOST [address] [place], [id number] [facility]al HealthStart: 43-08-1200Uaevjvxiw vaccinationNOMS HealthcareStart: 11-11-2024 End: 03-83-5141Zatpnxn encounter nifgftpaf21/12/2025 4:30 PM EDT Office Visit [facility] [address] [place] [address] Yanira Beavers, FLAME C[employer]TER[employer]OST [address] [place], [id number] ArrivedMS [facility] HealthComment on above:ArrivedStart: 10-27-2024 End: 90-49-5085Loiyxgg encounter ipltbsxxv40/28/2025 3:00 PM EDT Office Visit [facility] [address] [place] [address] Yanira Newton, FLAME C[employer]TER[employer]SPA HOST [address] [place] [address] [facility] CI BHStart: 06-17-2024 End: 13-25-8539Lxnywpb encounter quuljrlbi77/18/2025 2:00 PM EDT Office Visit [facility] [address] [place] [address] Yanira Newton, FLAME C[employer] HOST [address] [place] [address] [facility] CI BHStart: 03-04-2024 End: 22-03-6943Jqlcprx encounter yjqrtakmh85/03/2024 2:45 PM EST Office Visit [facility] [address] [place] [address] Joe Jauregui, DO [address] [place] [address] [facility] IMStart: 03-04-2024 End: 66-32-7651SG Internal auditory canal WO and W contrast IVMR IAC w and wo IV contrast Imaging Routine Vocal fold paralysis, right Expected: 03/04/2024, Expires: 03/04/2025[facility] Service Area Work Phone: comment on above:Expected: 03/04/2024, Expires: 03/04/2025Start: 02-07-2024 End: 46-75-6107Injuebv encounter ozpujimes13/07/2024 11:15 AM EST Office Visit [facility] [address] [place] [phone] Joe Jauregui, DO [address] [place] [address] [facility] IMStart: 02-05-2024 End: 25-22-7355Pnezcwn encounter mjkjtiriv21/05/2024 1:45 PM EST Office Visit [facility] [address] [facility] 2nd [place] [address] [place] [address] [facility] [place] [address] [facility]-15-2024 End: 85-09-1587Gxlkfsw encounter lujgtaoog84/15/2024 1:00 PM EDT Office Visit [facility] [address] [place] [address] Yanira Newton, FLAME C[employer] HOST [address] [facility] [address] [place] [address] [facility] CI BHStart: 73-10-5041WVUGQ-19 Vaccine ( season)COVID-19 Vaccine ()[facility]: 07-49-3207NDLCE-19 Vaccine ( season) COVID-19 Vaccine ()[facility]: 66-84-6199Ksyakhjln vaccinationInfluenza Vaccine (#1)[facility]: 11-20-2023 End: 95-97-3304Megsjiz encounter dzebaqayv96/20/2024 3:00 PM EDT Office Visit [facility] [address] [facility] [address] [place] [address] Jad Arndt MD [address] [address] [place] [address] ArrivedNOMS CI ENTComment on above:ArrivedStart: 03-72-6256YmyzhporpUniversity Hospitals St. John Medical Centertart: 60-21-7933IoiyebuujUniversity Hospitals St. John Medical Centertart: 84-03-6104Tuaiwezcvde of Urinary Filtration, Intermittent, Less than 6 Hours Per DayPerformance of Urinary Filtration, Intermittent, Less than [address]University [address] John Medical Centertart: 35-23-9839Luftrlkq to general surgeonUniversity Hospitals St. John Medical Centertart: 53-28-1829Neasxljg to nephrologistUniversity Hospitals St. John Medical Centertart: 07-03-3535Wkjegeln admission [facility] Centertart: 35-09-4594VSZWUTCDS (FIT-DNA)COLOGUARD (FIT-DNA)[facility]: 76-21-7006EndemyweeqkCWDJUHLHNJRHhbweafux Clinic Start: 89-03-9593EEADIRTYZQ CANCER SCREENINGCOLORECTAL CANCER SCREENINGAdams County Regional Medical Centertart: 05-90-2011DV COLONOGRAPHYCT COLONOGRAPHYAdams County Regional Medical Centertart: 47-40-4570RTRRXGNS SCREENDIABETES SCREENAdams County Regional Medical Centertart: 20-50-2822BFZBK OCCULT BLOODFECAL OCCULT BLOODAdams County Regional Medical Centertart: 40-04-4440PCBMJRJKZDILA SIGMOIDOSCOPYAdams County Regional Medical Centertart: 06-88-2943OfvbqhykuUniversity Hospitals Conneaut Medical Center Start: 87-07-4376Flfumkvb identified in Urine by CultureUrine CultureUniversity Hospitals St. John Medical Centertart: 44-31-2969DCSXQGKJIK ASSESSMENTDEPRESSION ASSESSMENTAdams County Regional Medical Centertart: 14-24-9234Mteagfffnonqjpp of arteriovenous fistulaUS AV [facility]ertart: 63-52-2421TB AV [facility]ertart: 24-16-8920UvkqppkmxUniversity Hospitals St. John Medical Centertart: 56-49-5028ZdfsigtewUniversity Hospitals St. John Medical Centertart: 59-33-1526EtlzoysshUniversity Hospitals St. John Medical Centertart: 62-34-4992Ngjbrhgioikscdr of arteriovenous fistulaUS AV FistulaUniversity Hospitals St. John Medical Centertart: 50-30-6982FE AV [facility]art: 12-06-[address] [facility] Centertart: 18-90-6615YutyodxijUniversity Hospitals St. John Medical Centertart: 12-01-2021 End: 43-48-3836Bnavkwq encounter procedureDeparted [facility]-Pre-Surgical TestingStart: 90-16-1608UvhutsyvdUniversity Hospitals St. John Medical Centertart: 23-91-5584JdzzqyetlUniversity Hospitals St. John Medical Centertart: 07-24-1999 DTaP/Tdap/Td Vaccines (1 - Tdap)DTaP/Tdap/Td Vaccines (1 - Tdap)[facility]: 32-63-6545OYoP,Tdap and Td Vaccines (1 - Tdap) DTaP,Tdap and Td Vaccines (1 - Tdap)[facility] LivingSocial SystemStart: 1996 Hepatitis B Vaccines (1 of 3 - 19+ 3-dose series)Hepatitis B Vaccines (1 of 3 - 19+ 3-dose series)[facility]: 56-14-7049Dxmzc microalbumin profileDTAP,TDAP,TD (1 - Tdap)[facility]ertart: 07-24-1995 Adult BMI ScreeningAdult BMI ScreeningQuorum Healthtart: 07-24-1995 Diabetes mellitus screeningDiabetes ScreeningCorey Hospital Start: 68-75-8113ARLXQLMQF C SCREENINGHEPATITIS C SCREENINGBarnesville [facility] Start: 42-76-8132Lyygdgvej C screeningHepatitis C ScreeningCorey HospitalStart: 58-27-3607HEG SCREENINGHIV SCREENINGAdams County Regional Medical Centertart: 72-58-7233Vfcbteexwj ScreeningDepression ScreeningQuorum Healthtart: 26-41-7130Qmnrnlj ScreeningTobacco ScreeningQuorum Healthtart: 54-70-3722MUD Vaccines (1 of 1 - Standard series)MMR Vaccines (1 of 1 - Standard series)[facility]: 95-93-2458SZMDQ-19 VACCINE (#1) COVID-19 VACCINE (#1)[facility]art: 15-44-8367QAZXKAQJS B (1 of 3 - 3- dose series)HEPATITIS B (1 of 3 - 3-dose series)[facility] Centertart: 78-23-0911GJF screeningHIV ScreeningHarrison Community Hospital: 33-25-5013[facility]c panelLipid PanelHarrison Community Hospital: 31-55-1952Eorcaiwvf for malignant neoplasm of colonHarrison Community Hospital: 33-82-2988Crqlvz Adult PhysicalYearly Adult PhysicalUnEast Liverpool City HospitalHeridgecrest regional hospital B virus surface Ag [Presence] in Serum or Plasma by ImmunoassayUniversity Hospitals Conneaut Medical CenterHepatitis C virus IgG Ab [Presence] in Serum or Plasma by ImmunoassayUniversity Hospitals Conneaut Medical Center End: 30-58-5237OB Internal auditory canal WO and W contrast [facility] Service Area Work Phone: comment on above:Once for 1 Occurrences starting 03/31/2024 until 03/31/2024Ova and parasites identified in Unspecified specimen by Light microscopyUniversity Hospitals Conneaut Medical CenterPatient EducationHocking Valley Community Hospital Ctr Work Phone: Patient referralHocking Valley Community Hospital Ctr Work Phone: [facility] Immunizations Immunization DateImmunizationNotesCare NwlvdsgmIadtjsom22-01-1205Binvfgrwihav Conjugate PCV 20Jad Arndt MD Work Phone: [facility] LouisXwhktdfayt15-26-7874zhfrmuwot virus vaccine, unspecified formulationPaRevelens [facility]12-27-2021influenza virus vaccine, unspecified formulationPaRevelens [facility]11-13-2020influenza virus vaccine, unspecified formulationPaRevelens [facility]11-06-2019influenza virus vaccine, unspecified formulationQuality Solicitors [facility]11-02-2017influenza virus vaccine, unspecified formulationQuality Solicitors [facility]09-29-2016influenza virus vaccine, unspecified formulationQuality Solicitors [facility] Payers DatePayer CategoryPayerPolicy [id number] 2023Self-pay [id number] Cross Blue ShieldBC [id number] [facility] CareANTHEM HMP [id number]9386.25775-72-3289Qwwnrdk 1.2.840.826598.1.13.159.2.7.3.696814.18578-68-9600PqhtDch Regional Medical Center Care - PPOANTHEM Member Subscriber Plan / Payer (Effective 2014-Present) Name: Jordi Huerta Relation to Subscriber: Self Name: Jordi Huerta Payer ID: [id number] ([facility]) Type: Not on file Address: [address] [place] [id number] [id number] ..1.122659.3.57[id number] ..1.811923.3.57[id number] 2..1.946604.3.57[id number] ..1.777054.3.57[id number] 2.0.1.354281.3.57[id number] 2..1.524383.3.57[id number] 2.840.1.285050.3.57[id number] 2..1.324977.3.579.2.1[id number] 2..1.041261.3.57[id number] 2..1.789294.3.57[id number] 2..1.258682.3.57[id number] 2..1.174815.3.57[id number] 2..1.268387.3.579.2.465291-51-5572Kxno Cross Blue [id number] 2.0.[id number] 2.0.1.4[id number] 2.0.1.394259.3.579.2.672Kyfnffm79234380 2..1.402234.3.579.2.531 [id number] 2.840.1.2[id number] 2.0.1.2[id number] 2.840.1.968718.3.579.2.531 [id number] 2.16.840.1.229286.3.579.2.531 Social History DateTypeDetailFacilityUnknown if ever smokedNorth discoapi Other Start: 01-15-2024 End: 84-66-2606Pxe Assigned At [facility] Hospitaltart: 10-11-2021 End: 62-38-4755Ptrrnnj smoking status NHISNever smoked tobacco (finding) [facility] Centertart: 82-88-1182Ube Assigned At [facility] Hospitaltart: 65-57-4367Tnrshyb smoking statusFormer smokeless tobacco user, quit more than 30 days agoExecutive [facility] BellevueToday [facility] smoking status NHISTobacco smoking consumption unknownAdams County Regional Medical Centertart: 02-92-2596Lrd Assigned At BirthNot on fileAdams County Regional Medical Centertart: 10-12-2022 End: 38-62-0592Stdjxel use and exposureUser of smokeless tobaccoNOMS Healthcare History of tobacco useChews TobaccoNOMS HealthcareStart: 01-15-2024 End: 61-19-4779Zgsqwertn beverage intakeLifetime non-drinker (finding)[facility] Work Phone: Start: 01-15-2024 End: 98-60-0926Dirhssp of Social functionNOMS HealthcareStart: 01-05-2024 End: 24-11-2574Pvgycstz to SARS-CoV-2 (event)Not sureCorey HospitalHistory of tobacco usePassive smokerNOMS HealthcareStart: 02-14-2024 End: 97-99-6078Qrqhkctxc beverage intakeEx-drinker (finding)[facility] HealthcareHow often to you have a drink containing alcohol?NeverNOMS HealthcareStart: 94-37-3904Khlgrgetj55CSPK HealthcareStart: 36-96-3329Gurtyef Commentno caffiene [facility] HealthcareStart: 11-05-2014 End: 49-42-8885EjaSxxd (finding)[facility] Centertart: 16-12-3340Muelmjg use and exposureFormer smokeless tobacco userNOMS Healthcare Start: 54-43-0244Gyszecuku beverage intakeCurrent non-drinker of alcohol (finding)[facility] Medical Equipment Procedure CodeEquipment CodeEquipment Original TextEquipment IdentifierDatesCup Actb 52mm Pncl Sect Hip Pinn Sector W/Gription 52mm - Sna - [id number] Start: 38-39-8970Pnp Actb 52mm 32mm +4 10d Altrx Lip Lnr 59czx31hp - Sna - [id number]: 46-48-1736Gdn Fem 150mm 12mm Crl Amt Ti Corail Amt Collar Size 12 - Sna - [id number]: 19-42-8799Bb Fem 32mm +5mm 12/14 Tpr Delta Cer Head 14 32mm +5 - Sna - [id number]: 47-69-7114Ncg Dep Pf Cerm/Cerm Construct - Sn/A - [id number]_hslHsaii: 39-39-4189Caaldm Hl Drlc Pncl Hip Mrthn [place] Positive Stop - Sna - [id number]: 58-16-2573Wiq Canc Hip Cnn Gription 20mm Pinn Can Bone Screw 6.6zlm08oa - Sna - [id number]: 09-10-2018 Goals DatePatient GoalDesired Activity/State Functional Status DxufKarinhogojAywaimKpvlkdvh42-60-7221Qkansqv Health Questionnaire 2 item (PHQ- 2) [Reported][facility]. LouisEqacycvvec97-87-2553Ubq difficult have these problems made it for you to do your work, take care of things at home, or get along with other people?Somewhat difficult 06/24/2024 3:36 PM LUBAT Judy Camarillo Somewhat difficultMercy Hospital St. LouisLdluffuuxr00-88-5277NMI-9 quick depression assessment panel [Reported.PHQ][facility] St. LouisNsmryglhlg33-70-1775Mbugmosqrde anxiety disorder 7 item (FILIPPO-7)[facility] St. LouisTaqgtrjjqi08-66-0927Dvcbicclqc statusPatient is Progressing Toward BaselineOhiohealth Riverside [facility] Work Phone: [phone] 413-50640563076-08-4481Fbnyekdkvw StatusN/AExec[facility] Mental Status HdbkEctanhgkftWubqpfAmpwmoxj00-69-2622Pvjhxpeeh functionCognitive Status Patient at BaselineHocking Valley Community Hospital Ctr Work Phone: Clinical Notes 08-31-2018 to 01-06-2025 Note Date & XmbpBeyyAdvrocyd05-89-4129 History of Present illness Narrative* Gregory Marin NP - 01/06/2025 8:45 AM EDT Images from the original note were not included. Jordi Huerta is a 49 y.o. male presents for routine follow up appt post renal transplant right lower quadrant. HPI: History of Present Illness The patient is a 49-year-old male who presents today to become established with Dr. Shabazz. He was last seen in [address] Jauregui. Kidney Transplant and Rejection Episode He underwent a successful kidney transplant on 05/03/2024 but experienced a rejection episode in 09/2024, which was managed with increased antirejection medication. He is under the care of Dr. Wan, with his next appointment scheduled for 01/14/2025. His tacrolimus level was less than 2, and he was taken off of it due to a viral infection. He continues to take Bactrim, sodium bicarbonate, valganciclovir (for a year post-transplant), amiloride 5 mg, amlodipine 10 mg, Imuran, hydralazine, Mag-Ox, prednisone, sertraline, and Protonix. He has discontinued trazodone, valsartan hydrochlorothiazide, allopurinol 100 mg, Sensipar, and clotrimazole. He reports no cough, shortness of breath, or chest pain. He monitors his blood pressure at home and maintains a low-salt diet. He is under the care of a second ride fare collector at [facility] and sees them every 2 weeks. He reports no leg swelling. He is not taking any vitamin D supplements. - Onset: Kidney transplant on 05/03/2024; rejection episode in 09/2024. - Duration: Ongoing management post-transplant. - Character: Rejection episode managed with increased antirejection medication. - Alleviating/Aggravating Factors: Taken off tacrolimus due to viral infection; continues various medications. - Timing: Next appointment with Dr. Wan on 01/14/2025; sees second ride fare collector every 2 weeks. - Severity: No cough, shortness of breath, chest pain, or leg swelling. Polycystic Kidney Disease and Dialysis He has a history of polycystic kidney disease and was on dialysis prior to his transplant. He has asurgical hernia but does not believe it affects his bowel movements. He has not had any polyps removed in the past. - Onset: History of polycystic kidney disease. - Duration: Dialysis prior to transplant. - Character: Surgical hernia present. - Severity: No impact on bowel movements. Loose Stools He experiences loose stools, which he attributes to his medications, and consumes probiotic yogurt.He has a stoma from a previous colostomy. - Onset: Loose stools attributed to medications. - Character: Loose stools. - Alleviating/Aggravating Factors: Consumes probiotic yogurt. Anxiety He has a history of anxiety and is currently on sertraline. He reports no feelings of depression. - Onset: History of anxiety. - Character: No feelings of depression. - Alleviating/Aggravating Factors: Currently on sertraline. Gout He has a history of gout but reports no recent flares. He is not currently taking allopurinol. - Onset: History of gout. - Character: No recent flares. Prediabetes He has a diagnosis of prediabetes but reports that his blood sugar levels are normal. He has not lost weight since his transplant and weighs between 198 to 202 pounds. He is not on any cholesterol medication. - Onset: Diagnosis of prediabetes. - Character: Blood sugar levels are normal. - Severity: Weight stable between 198 to 202 pounds. Occupation: Works for a [employer] Diet: Consumes potassium-rich foods and probiotic yogurt PAST SURGICAL HISTORY: - Kidney transplant on 05/03/2024 - Previous colostomy - Surgical hernia FAMILY HISTORY The patient mentions that the kidneys are hereditary. I have reviewed and reconciled the history and medication list with the patient today. HISTORIES: PAST MEDICAL HISTORY: Past Medical History: Diagnosis Date ADPKD (autosomal dominant polycystic kidney disease) 10/29/2014 Asymptomatic microscopic hematuria 08/18/2022 Rhodes's esophagus Chews tobacco 08/18/2022 Cytomegalovirus (CMV) viremia (HCC) 10/23/2024 Diverticulosis 05/26/2022 End-stage renal failure with renal transplant (HCC) 12/22/2024 FILIPPO (generalized anxiety disorder) 10/16/2023 GERD (gastroesophageal reflux disease) 05/15/2023 History of gout 12/22/2024 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 Hypomagnesemia 05/29/2024 Hypophosphatemia 05/21/2024 Immunosuppressed status (HCC) 12/22/2024 Lumbar and sacral spondyloarthritis 02/15/2018 Moderate major depression (HCC) 02/28/2021 Obstructive sleep apnea 10/29/2014 bipap has a cpap has a cpap Prediabetes 03/28/2021 Primary osteoarthritis involving multiple joints 04/18/2018 Pure hypercholesterolemia Renovascular hypertension 12/22/2024 Rheumatoid factor positive 10/13/2020 Secondary hyperparathyroidism (HCC) 03/07/2016 Unilateral complete paralysis of vocal cord 11/20/2023 Vitamin D deficiency 11/13/2017 SURGICAL HISTORY: Past Surgical History: Procedure Laterality Date AV FISTULA PLACEMENT Left 12/06/2021 upper arm AV FISTULA PLACEMENT Left 01/17/[address] ANGIOGRAM ABDOMEN PELVIS 06/13/2022 CT ANGIOGRAM ABDOMEN PELVIS 06/13/2022 CT ANGIOGRAM ABDOMEN PELVIS 06/20/2023 CT ANGIOGRAM ABDOMEN PELVIS 06/20/2023 CT ANGIOGRAM HEART CORONARY 07/14/2022 CT ANGIOGRAM TAVR 07/14/2022 CT GUIDED PERCUTANEOUS BIOPSY RENAL RIGHT Right 10/07/2024 CT GUIDED PERCUTANEOUS BIOPSY RENAL RIGHT 10/07/2024 DIALYSIS FISTULA CREATION 10/11/2021 EGD 2015 ILEOSTOMY CLOSURE MO INSERT MESH/PELVIC FLR ADDON 2014 Mesh Insertion Umbilical Hernia repair MO TOTAL HIP ARTHROPLASTY Right 09/10/[address] GORDON UMBILICAL HERNIA REPAIR 2012 SOCIAL HISTORY: Social History Tobacco Use Smoking status: Never Passive exposure: Past Smokeless tobacco: Former Types: Chew Vaping Use Vaping status: Never Used Substance Use Topics Alcohol use: Not Currently Comment: no caffiene Drug use: Never Depression: Not at risk (12/15/2024) Received from [facility] PHQ-2 Patient Health Questionnaire-2 Score: 0 FAMILY HISTORY: Family History Problem Relation Name Age of Onset Heart disease Father Hypertension Father Polycystic kidney disease Father Anxiety disorder Sister Polycystic kidney disease Sister Diabetes Maternal Grandmother Diabetes Maternal Grandfather Diabetes Paternal Grandmother Diabetes Paternal Grandfather Suicidality Neg Hx MEDICATIONS: Current Outpatient Medications Medication Instructions aMILoride (MIDAMOR) 5 mg, Daily RT amLODIPine (NORVASC) 10 mg, Oral, Daily atovaquone (MEPRON) 1,500 mg, Daily RT K Phos Wallace-Sod Phos Di & Wallace (David-Phos 250 Neutral) [phone] MG tablet 1 tablet, Oral, 2 times daily Mag Glycinate 200 mg, 2 times daily mycophenolate (MYFORTIC) 360 mg, 2 times daily ondansetron ODT (ZOFRAN-ODT) 4 mg, Every 8 hours PRN pantoprazole (PROTONIX) 40 mg, Daily before breakfast potassium chloride CR (Klor-Con M10) 10 MEQ ER tablet 10 mEq, Daily predniSONE (DELTASONE) 10 mg, Daily sertraline (ZOLOFT) 150 mg, Oral, Daily sodium bicarbonate 650 mg, 3 times daily sulfamethoxazole-trimethoprim (Bactrim DS) 800-160 MG per tablet 1 tablet, 3 times weekly tacrolimus ER (ENVARSUS XR) 1.5 mg, Daily RT tacrolimus ER (ENVARSUS XR) 3 mg, Daily RT valGANciclovir (VALCYTE) 450 mg, Daily RT ALLERGIES: Allergies Allergen Reactions Amoxicillin Nausea And Vomiting and Nausea Only Other reaction(s): Nausea Escitalopram Nausea Only Other reaction(s): Unknown Other reaction(s): Unknown Immunization History Administered Date(s) Administered Pneumococcal Conjugate PCV 20 10/12/2022 PHYSICAL EXAM: Visit Vitals BP 136/80 Pulse 75 Ht 5' 9 Wt 198 lb 6.4 oz SpO2 98% BMI 29.30 kg/m Smoking Status Never BSA 2.09 m BP Readings from Last 3 Encounters: 01/06/25 136/80 11/11/24 145/86 06/24/24 156/86 Wt Readings from Last 3 Encounters: 01/06/25 198 lb 6.4 oz 11/11/24 202 lb 06/24/24 206 lb Physical Exam Constitutional: Appearance: Normal appearance. HENT: Head: Normocephalic. Right Ear: Tympanic membrane normal. Left Ear: Tympanic membrane normal. Mouth/Throat: Mouth: Mucous membranes are moist. Pharynx: Oropharynx is clear. Eyes: Extraocular Movements: Extraocular movements intact. Neck: Thyroid: No thyromegaly. Vascular: No carotid bruit. Cardiovascular: Rate and Rhythm: Normal rate and regular rhythm. Heart sounds: Murmur heard. Systolic murmur is present with a grade of 1/6. Pulmonary: Effort: No respiratory distress. Breath sounds: Normal breath sounds. Abdominal: General: Bowel sounds are normal. Palpations: Abdomen is soft. There is no mass. Tenderness: There is no abdominal tenderness. Musculoskeletal: General: No swelling. Cervical back: Neck supple. No tenderness. Right lower leg: No edema. Left lower leg: No edema. Lymphadenopathy: Cervical: No cervical adenopathy. Skin: General: Skin is warm and dry. Neurological: Mental Status: He is oriented to person, place, and time. Psychiatric: Mood and Affect: Mood normal. Thought Content: Thought content normal. Judgment: Judgment normal. Results Labs - Sodium: Normal - Potassium: Normal - Creatinine: Improved from 1.49 to 1.42 mg/dL - GFR: 61.3 mL/min/1.73m - Total Protein: 6.6 g/dL - Alkaline Phosphatase: Slightly elevated - Magnesium: Normal - Phosphorus: Normal - Uric Acid: Normal - Tacrolimus: Less than 2 ng/mL - White Cell Count: Slightly low - Fasting Blood Sugar: 83 mg/dL ASSESSMENT AND PLAN: Assessment & Plan 1. Annual physical exam (Primary) -UTD on vaccines -checking with transplant team re: flu vaccine, shingrix etc 2. Pure hypercholesterolemia - Lipid panel; Future 3. Renovascular hypertension -well controlled Pt. is to limit sodium to 1800 mg per day. Avoid canned soups & vegetables, boxed foods, like rice & frozen TV dinners. Do not add salt, garlic or onion salt to your food. Use Mrs. Lugo whichhas no sodium. High/Low sodium list given to patient. -Stage II Chronic Kidney Disease: Stable. Creatinine has improved from 1.49 to 1.42, and GFR is now61.3. Sodium, potassium, magnesium, phosphorus, and uric acid levels are normal. Alkaline phosphatase is slightly elevated. White blood cell count is slightly low. - Check vitamin D levels during the next blood work. - Monitor white blood cell count closely. - Continue eating potassium-rich foods. Blood pressure today is 136/80 mmHg. - Continue monitoring blood pressure at home. - Watch salt intake. - Continue amlodipine 10 mg. - Continue hydralazine. 4. Prediabetes - Comprehensive metabolic panel; Future - Hemoglobin a1c with eag; Future -Pt. educated on carb counting, portion control, importance of exercising, reading food labels, healthy food choices. 5. End-stage renal failure with renal transplant (HCC) -had transplant in May 2024. -following with Dr. Serrano in [place] 6. ADPKD (autosomal dominant polycystic kidney disease) -s/p transplant -has an appt in January 14 7. Secondary hyperparathyroidism (HCC) -[place] [facility] [place]. Moderate major depression ([facility]) -follows with yanira -doing well with zoloft 9. FILIPPO (generalized anxiety disorder) -on zoloft 10. Immunosuppressed status ([facility]) -on medications, follows with Wan 11. Vitamin D deficiency - Vitamin D 25 hydroxy Total; Future - Alkaline phosphatase, isoenzymes; Future 12. History of gout -not taking allopurinol and no recent gout flareups 13. S/P kidney transplant (HCC) -doing well has appt on Jan 14 and will follow up every 2 weeks Acute on Chronic. Experienced a rejection episode in September and underwent treatment with increased antirejection medications. Off tacrolimus due to a viral infection. - Continue Bactrim. - Continue sodium bicarbonate. - Continue valganciclovir. - Continue amiloride 5 mg. - Continue amlodipine 10 mg. - Continue Imuran. - Continue hydralazine. - Continue Mag-Ox. - Continue prednisone. - Continue sertraline. 14. Elevated alkaline phosphatase level - Alkaline phosphatase, isoenzymes; Future Dr. Shabazz was present in office suite today and is supervising patient care and available for consult. I'm following his plan of care for the above problems. Previous notes and plan were reviewed and followed. - A follow-up visit is scheduled in 6 months. documented in this encounterMercy Hospital St. [id number] NoteUniversity [facility]07-17-2025 NoteUniversity Hospitals [facility]07-15-2025 Note [facility]07-14-2025 NoteUnUniversity [facility]als [facility]07-11-2025 NoteReceived phone call from Alexandro manager flight operations, Christiane, ext [phone] to assist with DC needs. DC plan is home with no needs. Christiane requested clinical updates. Sent message to to send updates. Pt has DC orders. [facility]07-11-2025 NoteUnUniversity Hospitals [facility]07-11-2025 NoteUnUniversity [facility]07-10-2025 Note [facility]07-10-2025 NoteUn[facility]07-10-2025 NoteUn[facility]07-09-2025 Note [facility]07-09-2025 NoteUn[facility]07-09-2025 NoteUn[facility]07-08-2025 NotePost scan after renal transplant biopsy shows developing hematoma. Dr. Oviedo holding pressure for minimum 10 minutes, Yohannes PRITCHARD notified and orders placed. Plan of care continuing.[facility]07-08-2025 Note [facility]07-08-2025 NoteUnUniversity [facility]07-07-2025 NoteUn[facility]07-07-2025 Note [facility]06-30-2025 NoteUniversity [facility] Center06-16-2025 NoteReviewed over the phone with Dr. Palacios patients Prospera result 1.08%, DSA negative, and creatinine 1.55. New orders to have labs and repeat Prospera done in next 1-2 weeks. New order for Prospera placed. Updated patient who verbalized understanding.[facility]06-12-2025 NoteUnUniversity [facility]06-11-2025 NoteUniversity [facility] 09-10-2024 NoteUnUniversity [facility]05-27-2025 NoteUniversity [facility]05-22-2025 NoteReturned [phone] voicemail from pt asking about WBC value. Encouraged to repeat the test on Sunday next week-no MD changes today and he verbalized understanding [facility]05-22-2025 NoteReviewed WBC by [employer] & phone notification to Dr. Holly Palacios and he has no changes. Pt will RV late September with nephrology and his 08/29/24 RV is being cancelled-pt notified in a voicemail message. Tac level from yesterday will not be true.[facility]05-21-2025 NoteUnUniversity [facility]05-21-2025 NoteUnUniversity [facility]05-21-2025 Note [facility]05-21-2025 NoteMailbox full. Unable to leave message. PT has RV with Dr. Holly Palacios today.[facility]05-14-2025 NotePer this MD order, fax C diff and reduce Imuran from 100mg to 50mg QD. Pt was notified and he will take specimen to [facility]-order faxed to [phone] and [phone] per pt request and he verbalized understanding. Has had 4 stools today.[facility]05-14-2025 NoteUnUniversity [facility]05-07-2025 NoteUnUniversity [facility]05-07-2025 Note [facility]04-25-2025 NoteUn[facility]04-25-2025 NoteUn[facility]04-25-2025 NoteWriter received verbal request from Eloina to obtain signature and fax. Credit Collections Specialist faxed forms and mailed original forms to address on file for patient. Patient doesn't have MyChart set up so I was unable to send it to his MyChart.[facility]04-25-2025 NoteUn[facility] 07-25-2024 NoteUnUniversity [facility]04-17-2025 Ana JASSO has no new orders. RV and repeat labs next Sunday as scheduledUnUniversity [facility]als [facility]04-17-2025 NoteCBC improved. Tac pending. Will updated Dr. Vargas Byers by phone and pt informed to continue his current IS regimen and RV with labs as scheduled 07/25/24. Pt will return home today and voiced no additional concerns. Pt verbalized understandingUnUniversity Hospitals [facility] Center04-16-2025 Note [facility]04-16-2025 NoteDrJorgito Byers gave no new orders. Approves neupogen if indicated tomorrow.[facility]04-14-2025 NoteUnUniversity [facility]04-11-2025 Note [facility]04-11-2025 NotePt sent to lab for CMV testing today following clinic visit by .[facility] 07-11-2024 NoteUnUniversity [facility]04-11-2025 NoteUniversity [facility]04-11-2025 NoteUniversity [facility] 06-27-2024 NoteUniversity [facility] Center03-28-2025 NoteUniversity [facility]03-28-2025 NoteUniversity [facility] 06-20-2024 NoteUniversity [facility] Center03-20-2025 NoteUniversity [facility]03-14-2025 NoteUniversity [facility] 06-11-2024 NoteUniversity [facility] Center03-06-20[address] NoteMag [address] Byers. No new orders today since pt just started this recent RX on Sunday.[facility]03-04-2025 Note [facility]03-04-2025 NoteUniversity [facility] Center02-27-2025 NoteUnUniversity [facility]02-26-2025 Note [facility]02-24-2025 NoteEvery other staple removed per physician order. Patient tolerated without complications. 3 steri-strips applied. Incision well approximated, clean, dry, and intact. Tac level 5.[address] Palacios. No new orders received.[facility]02-24-2025 NoteUniversity [facility] Center02-21-2025 Note [facility]02-19-2025 NoteUn[facility]02-18-2025 NoteUnUniversity [facility]02-18-2025 NoteWriter received disability forms via fax machine addressed as SECOND ATTEMPT. Credit Collections Specialist scanned blank form into patients chart and sat hard copy on Chencho's desk on 05-20-24 around 9am to be completed.[facility] 05-20-2024 NoteUnUniversity [facility]02-17-2025 NoteUnUniversity [facility]02-17-2025 NoteTac level today 3.6, per Dr Shana antunez, Left VM for patient to increase current dose of 2 mg to 3 mg every morning and will see what it is when repeated this week. Call back clinic number with any questions.[facility] 05-19-2024 NoteUnUniversity [facility]02-14-2025 NoteUn[facility]02-14-2025 NoteUn[facility] 05-14-2024 NoteUn[facility]02-10-2025 NoteTac level 4.[address] Sampson. Recent dosage adjustment 05/09/24. No new orders received.[facility]02-10-2025 NoteUn[facility]02-07-2025 NoteUn[facility] 05-09-2024 NoteUn[facility]02-07-2025 NoteUn[facility]02-07-2025 NoteUniversity [facility] 05-08-2024 NoteUn[facility]02-05-2025 NotePt on the unit for his 3 hour scheduled dialysis tx. Pt tolerated his tx well, 2 kg removed.[facility]02-05-2025 NoteUn[facility]02-05-2025 NoteUn[facility] 05-07-2024 NoteUniversity [facility]02-04-2025 NoteUniversity [facility]02-04-2025 NoteUniversity [facility] 05-06-2024 NoteUn[facility]02-04-2025 NoteUniversity [facility]02-03-2025 NoteUniversity [facility] 05-05-2024 NoteUniversity [facility]02-03-2025 NoteUniversity [facility]02-03-2025 NoteUniversity [facility] 05-05-2024 NoteUniversity [facility]02-02-2025 NoteUniversity [facility]02-01-2025 NoteUniversity [facility] 05-03-2024 NotePeripheral IV Date/Time: 05/03/2024 3:10 PM Placement Needle size: 18 G Laterality: left Location: external jugular Local anesthetic: none Site prep: alcohol Technique: anatomical landmarks Attempts: 1[facility]12-03-2024 History of Present illness Narrative* Jessenia Bello MD - 03/04/2024 1:45 PM EST Images from the original note were not included. Patient: Jordi Huerta Date of : 1975 Sex: male Age: 48 y.o. Date of Service: 03/04/2024 ASSESSMENT AND PLAN I discussed the findings with Jordi Huerta and have recommended the followin. Right vocal fold paralysis s/p in office vocal fold injection 01/15/[address] neck without contrast with asymmetric jugular bulb on right. He does not have any other obvious cranial nerve findings at this time. - MRI IAC ordered to further evaluate - Follow-up with me 6 months for repeat strobe, sooner as needed pending MRI results CHIEF COMPLAINT Chief Complaint Patient presents with Follow-up HISTORY OF PRESENT ILLNESS Jordi Huerta is a 48 y.o. 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 03/04/24 s/p in office vocal fold injection 01/15/24 with Restylane. Voice much improved. No other symptoms.CT neck images reviewed 01/15/24 The patient reports his voice change has been going on for several months. He just woke up one day with acute voice change. No preceeding illness. Referral notes reviewed, CT neck/chest at [facility] ([place], [place]) around December reportedly without masses or lesions. Since then his voice comes and goes,some times has good days and other days sounds worse. PMH: Polycystic kidneys, awaiting transplant, on dialysis. SH: Works for [employer]. No smoking, occ chewing tobacco ADDITIONAL HISTORY Past Medical History He has no past medical history on file. Surgical History He has no past surgical history on file. Social History He reports that he has never smoked. His smokeless tobacco use includes chew. He reports that he does not drink alcohol and does not use drugs. Allergies Amoxicillin and Escitalopram Family History No family history on file. REVIEW OF SYSTEMS All 10 systems were reviewed and negative except for above. PHYSICAL EXAM ENT Physical Exam GENERAL: Well-nourished and developed, alert and appropriate, no distress, voice [id number] RESPIRATORY: Breathing quietly, no stridor HEAD: Normocephalic atraumatic FACE: Symmetric, no masses or lesions EYES: Pupils reactive, sclera clear, external ocular muscles intact, no nystagmus. EARS: Pinnae normal. External auditory canals clear and tympanic membranes intact. NOSE: No anterior lesions, masses or polyps. ORAL CAVITY/OROPHARYNX: Buccal mucosa is moist without lesions or masses, tongue midline and palateelevates symmetrically. Tongue mobility intact. NECK: Soft. There is no lymphadenopathy or thyromegaly. NEUROLOGIC: Cranial nerves II-XII grossly intact. Last Recorded Vitals Temperature 36.8 C (98.2 F), height 1.753 m (5' 9 ), weight 101 kg (222 lb 1.6 oz). RESULTS Patient Reported Outcome Measures N/A Laboratory, Radiology, and Pathology I personally reviewed the following results, with the following interpretation: CT neck/chest 11/27/23 - limited by no IV contrast, on my review the jugular foramen appears asymmetric on the right compared to left PROCEDURES Flexible Fiberoptic Laryngoscopy with Stroboscopy Patient failed a mirror exam due to limitations of equipment and the need for stroboscopy to assessglottic vibration and closure. PREOPERATIVE DIAGNOSIS: Dysphonia POSTOPERATIVE DIAGNOSIS: Same PROCEDURE: Strobovideolaryngoscopy ANESTHESIA: Topical COMPLICATIONS: None SPECIMENS: None PROCEDURE IN DETAIL: The patient was seated in an upright position. The nasal cavity was topically decongested and anesthetized. The stroboscopic microphone was held to the neck at the level of the larynx. The distal chip video laryngoscope was passed through the nasal cavity. The nasal cavity and n asopharynx were within normal limits except noted below. The following findings on stroboscopy werenoted: Tongue Base: no masses or lesions Vocal Fold Mobility Right VF: immobile Left VF: mobile TVF Appearance Edema/Erythema: mild edema Lesions/vibratory margin irregularities: none Glottic Closure Pattern: complete Vibration: Phase: regular Periodicity: normal Amplitude: normal Waveform: normal Muscle Tension Patterns: improved Other Findings: none The patient tolerated the procedure well. Jessenia Bello MD, MAEd Hooker Inspector [facility] Department of Otolaryngology - Head and Neck Surgery [facility] The total time I spent in care of this patient today (excluding time spent on other billable services) is as follows: documented in this [facility] Work Phone: [phone]) 554-444911-14-2024 History of Present illness Narrative* Yanira Beavers, FLAME CUTTER-SPA HOST - 02/14/2024 2:00 PM EST Images from the original note were not included. Jordi Huerta is a 48 y.o. male presents for Medication Management. HPI: Patient is here for medication follow up. Just had dialysis. Patient has improved since last appt. Mood is reported as not sad or depressed. He feels he is better than previous. Anxiety is undercontrol. Sleeping 7 hours. Medication compliant. No reported side effects. Denies abuse of substances. Medical problems since last visit. Polycystic kidney disease. Psychosocial stressors include getting on kidney transplant list. grandbaby in house. SUBJECTIVE: PAST MEDICAL HISTORY: Past Medical History: Diagnosis Date Anxiety AVN (avascular necrosis of bone) (CMS/HCC) Rhodes's esophagus Congenital polycystic kidney disease Essential hypertension (CMS/HCC) Gout Pure hypercholesterolemia (CMS/HCC) Status post total hip replacement, right ALLERGIES: Allergies Allergen Reactions Amoxicillin Nausea And Vomiting and Nausea Only Other reaction(s): Nausea Escitalopram Nausea Only Other reaction(s): Unknown Other reaction(s): Unknown SURGICAL HISTORY: Past Surgical History: Procedure Laterality Date AV FISTULA PLACEMENT Left 12/06/2021 upper arm AV FISTULA PLACEMENT Left 01/17/[address] ANGIOGRAM ABDOMEN PELVIS 06/13/2022 CT ANGIOGRAM ABDOMEN PELVIS 06/13/2022 CT ANGIOGRAM ABDOMEN PELVIS 06/20/2023 CT ANGIOGRAM ABDOMEN PELVIS 06/20/2023 CT ANGIOGRAM HEART CORONARY 07/14/2022 CT ANGIOGRAM TAVR 07/14/2022 DIALYSIS FISTULA CREATION 10/11/2021 EGD 2015 MO INSERT MESH/PELVIC FLR ADDON 2014 Mesh Insertion Umbilical Hernia repair MO TOTAL HIP ARTHROPLASTY Right 09/10/[address] GORDON UMBILICAL HERNIA REPAIR 2012 FAMILY HISTORY: Family History Problem Relation Name Age of Onset Heart disease Father Hypertension Father Polycystic kidney disease Father Anxiety disorder Sister Polycystic kidney disease Sister Diabetes Maternal Grandmother Diabetes Maternal Grandfather Diabetes Paternal Grandmother Diabetes Paternal Grandfather Suicidality Neg Hx SOCIAL HISTORY: Social History Tobacco Use Smoking status: Never Passive exposure: Past Smokeless tobacco: Current Types: Chew Vaping Use Vaping status: Never Used Substance Use Topics Alcohol use: Not Currently Comment: no caffiene Drug use: Never Depression: Not at risk (01/15/2024) Received from [facility] PHQ-2 Patient Health Questionnaire-2 Score: 0 REVIEW OF SYMPTOMS - MENTAL STATUS EXAM Appearance Appearance: Casual dress, normal grooming and hygiene Attitude Attitude: Cooperative, conversant, engaged, and with good eye contact. Behavior Cooperative, conversant, engaged, and with good eye contact. Speech Normal, clear, regular rate, rhythm and volume Affect full affect appropriate with mood Mood euthymic irritable at times Thought Process Organized and Clear Thought Content No Suicidal Ideation and No Homicidal ideation Perception No perceptual abnormalities noted Orientation Appropriate to age, Person, Place, and Time Memory/Concentration Short term intact and reservation manager intact Insight/Judgement Good OBJECTIVE: Visit Vitals Smoking Status Never No results found for: TSH Lab Results Component Value Date GLU 100 06/20/2023 CALCIUM 10.5 (H) 06/20/2023 NA 140 06/20/2023 K 3.7 06/20/2023 CO2 31 06/20/2023 CL 99 09/15/2022 BUN 48 (H) 06/20/2023 CREATININE 6.89 (H) 06/20/2023 Lab Results Component Value Date WBC 12.1 (H) 09/15/2022 HGB 16.4 09/15/2022 HCT 48.3 09/15/2022 MCV 90.6 09/15/2022 PLT 208 09/15/2022 No results found for: CHOL No results found for: HDL No results found for: LDLCALC No results found for: TRIG ASSESSMENT AND PLAN: Assessment/Plan .1Major depressive disorder, recurrent, in partial remission - F33.41 (Primary) 2. Other specified anxiety disorders - F41.8 Psych Medication List Zoloft 150mg daily Trazodone 100mg nightly Patient to check with second ride fare collector if able to take vistaril for anxiety Patient was seen Face to Face, Reviewed chart documents and documentation, Visit time : 30 min 4 months. documented in this encounterMercy Hospital St. [id number] History of Present illness Narrative* Jessenia Bello MD - 01/15/2024 1:00 PM EDT Patient: Jordi Huerta Date of : 1975 Sex: male Age: 48 y.o. Date of Service: 01/15/2024 ASSESSMENT AND PLAN I discussed the findings with Jordi Huerta and have recommended the followin. Idiopathic right vocal fold paralysis s/p in office vocal fold injection 01/15/24 with Restylane. - NPO x 1 hr - Voice rest x 24 hr - Soft diet x 24 hr - Follow-up with me in 3-4 weeks for repeat strobe - CT images requested, will review when available CHIEF COMPLAINT Chief Complaint Patient presents with Laryngitis HISTORY OF PRESENT ILLNESS Jordi Huerta is a 48 y.o. male referred by Jad Calderon* for evaluation of dysphonia. The patient reports his voice change has been going on for several months. He just woke up one day with acute voice change. No preceeding illness. Referral notes reviewed, CT neck/chest at [facility] ([place], [place]) around December reportedly without masses or lesions. Since then his voice comes and goes, some times has good days and other days soundsworse. PMH: Polycystic kidneys, awaiting transplant, on dialysis. SH: Works for [employer]. No smoking, occ chewing tobacco ADDITIONAL HISTORY Past Medical History He has no past medical history on file. Surgical History He has no past surgical history on file. Social History He reports that he has never smoked. His smokeless tobacco use includes chew. He reports that he does not drink alcohol and does not use drugs. Allergies Amoxicillin and Escitalopram Family History No family history on file. REVIEW OF SYSTEMS All 10 systems were reviewed and negative except for above. PHYSICAL EXAM ENT Physical Exam GENERAL: Well-nourished and developed, alert and appropriate, no distress, voice [id number] RESPIRATORY: Breathing quietly, no stridor HEAD: Normocephalic atraumatic FACE: Symmetric, no masses or lesions EYES: Pupils reactive, sclera clear, external ocular muscles intact, no nystagmus. EARS: Pinnae normal. External auditory canals clear and tympanic membranes intact. NOSE: No anterior lesions, masses or polyps. ORAL CAVITY/OROPHARYNX: Buccal mucosa is moist without lesions or masses, tongue midline and palateelevates symmetrically. Tongue mobility intact. NECK: Soft. There is no lymphadenopathy or thyromegaly. NEUROLOGIC: Cranial nerves II-XII grossly intact. Last Recorded Vitals Temperature 36.7 C (98.1 F), height 1.753 m (5' 9 ), weight 99.7 kg (219 lb 11.2 oz). RESULTS Patient Reported Outcome Measures N/A Laboratory, Radiology, and Pathology I personally reviewed the following results, with the following interpretation: N/A PROCEDURES Flexible Fiberoptic Laryngoscopy with Stroboscopy Patient failed a mirror exam due to limitations of equipment and the need for stroboscopy to assessglottic vibration and closure. PREOPERATIVE DIAGNOSIS: Dysphonia POSTOPERATIVE DIAGNOSIS: Same PROCEDURE: Strobovideolaryngoscopy ANESTHESIA: Topical COMPLICATIONS: None SPECIMENS: None PROCEDURE IN DETAIL: The patient was seated in an upright position. The nasal cavity was topically decongested and anesthetized. The stroboscopic microphone was held to the neck at the level of the larynx. The distal chip video laryngoscope was passed through the nasal cavity. The nasal cavity and n asopharynx were within normal limits except noted below. The following findings on stroboscopy werenoted: Tongue Base: no masses or lesions Vocal Fold Mobility Right VF: immobile Left VF: mobile TVF Appearance Edema/Erythema: mild edema Lesions/vibratory margin irregularities: none Glottic Closure Pattern: severe hyperfunction, left plica ventricularis Vibration: Phase: asymmetric Periodicity: unable to evaluate due to hyperfunction Amplitude: unable to evaluate due to hyperfunction Waveform: unable to evaluate due to hyperfunction Muscle Tension Patterns: circumferential Other Findings: none The patient tolerated the procedure well. Following the diagnostic stroboscopy, options were discussed with the patient including observation, voice therapy, and/or injection laryngoplasty. He would like to proceed with injection laryngoplasty. Flexible Fiberoptic Laryngoscopy with Vocal Fold Injection PREOPERATIVE DIAGNOSIS: dysphonia POSTOPERATIVE DIAGNOSIS: Same PROCEDURE: Transnasal videolaryngoscopy/bronchoscopy with injection medialization of the right vocal fold, superior laryngeal nerve block ANESTHESIA: Topical COMPLICATIONS: None SPECIMENS: None PROCEDURE IN DETAIL: The risks, benefits, limitations, and alternatives of the procedure were described to the patient in detail. The patient understood and wished to proceed. The appropriate consents were obtained. The patient was placed in the upright position in the procedure chair. The nasal cavity was topically decongested anesthetized. The channeled distal chip video bronchoscope was passed through the nasal cavity. The cervical skin was prepped in the usual clean fashion with an alcohol swab. An ipsilateral superior laryngeal nerve block was performed and the region overlying the thyroid notch was infiltrated with 1% lidocaine with 1:100,000 units of epinephrine. 4 cc of 4% lidocaine was instilled over the vocal folds and into the trachea to provide laryngotracheal anesthesia. Under endoscopic visualization, through the thyrohyoid approach, 1 cc of Restylane was injected into the affected vocal fold just lateral and anterior to the vocal process into the thyroid arytenoid muscle. This provided excellentmedialization. The vocal fold was overcorrected by approximately 20%. The patient tolerated the procedure well. There were no immediate complications. Jessenia Bello MD, MAEd Hooker Inspector [facility] Department of Otolaryngology - Head and Neck Surgery [facility] The total time I spent in care of this patient today (excluding time spent on other billable services) is as follows: Time Spent Prep time on day of patient encounter: 10 minutes Time spent directly with patient, family or caregiver: 30 minutes Additional Time Spent on Patient Care Activities: 5 minutes Documentation Time: 10 minutes Other Time Spent: 0 minutes Total: 55 minutes documented in this encounterCore[facility] Work Phone: [phone]) 726-865109-03-2024 History of Present illness Narrative* Jad Arndt MD - 12/04/2023 3:40 PM EDT Subjective Patient ID: Jordi Huerta is a 48 y.o. male who presents for vocal cord paralysis (Follow up CT chest and CT neck, NOMS) CT neck and chest reviewed and no neoplasm evident that might cause TVC paralysis. Pt forgot to call with thyroid med. Family History Problem Relation Name Age of Onset Heart disease Father Hypertension Father Polycystic kidney disease Father Anxiety disorder Sister Polycystic kidney disease Sister Diabetes Maternal Grandmother Diabetes Maternal Grandfather Diabetes Paternal Grandmother Diabetes Paternal Grandfather Suicidality Neg Hx Active Ambulatory Problems Diagnosis Date Noted Asymptomatic microscopic hematuria 08/18/2022 Avascular necrosis of bone of right hip ([facility]) 08/26/2018 Barretts esophagus 08/10/2015 Chews tobacco 08/18/2022 Chronic gouty arthritis 04/11/2017 Polycystic kidney disease, childhood type (CPKD) 10/29/2014 Diverticular disease of colon 03/28/2021 Diverticulitis 08/11/2022 Diverticulosis 05/26/2022 Dysuria 08/18/2022 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 Hyperparathyroidism due to renal insufficiency ([facility]) 03/07/2016 Hyperuricemia 06/10/2014 Lumbar and sacral spondyloarthritis 02/15/2018 Impaired fasting glucose 03/28/2021 Morbid obesity ([facility]) 03/16/2020 Major depressive disorder, recurrent episode, in partial remission (HCC) ([facility]) 02/28/2021 Osteoarthritis of hip 04/18/2018 Polycystic kidney disease 05/26/2022 Pure hypercholesterolemia ([facility]) 05/12/2015 Rheumatoid factor positive 10/13/2020 Secondary hypertension ([facility]) 07/18/2018 Sinusitis 03/28/2021 Sleep apnea 10/29/2014 Status post right hip replacement 09/15/2018 Vitamin D deficiency 11/13/2017 CKD (chronic kidney disease) stage 5, GFR less than 15 ml/min ([facility]) 10/12/2022 History of colostomy reversal 03/22/2023 Anxiety 10/16/2023 Dialysis patient ([facility]) 11/20/2023 Diarrhea 11/20/2023 Diverticulitis of intestine with perforation without abscess 11/20/2023 ESRD (end stage renal disease) on dialysis ([facility]) 05/15/2023 GERD (gastroesophageal reflux disease) 05/15/2023 History of smokeless tobacco use 05/15/2023 Hyperlipidemia ([facility]) 05/15/2023 Nausea & vomiting 11/20/2023 Pre-transplant evaluation for kidney transplant 06/20/2023 S/P closure of ileostomy 03/22/2023 Unilateral complete paralysis of vocal cord 11/20/2023 Hoarse 11/20/2023 Resolved Ambulatory Problems Diagnosis Date Noted Aseptic necrosis of bone ([facility]) 05/31/2018 Benign essential hypertension ([facility]) 08/18/2022 Blood in urine 08/18/2022 Difficulty walking 09/15/2018 Panic disorder ([facility]) 12/30/2007 Perforated diverticulum of large intestine 03/16/2020 Right hip pain 09/11/2018 Stage 4 chronic kidney disease ([facility]) 07/05/2015 Tobacco dependence syndrome 05/26/[address] ([facility]) 10/12/2022 Past Medical History: Diagnosis Date AVN (avascular necrosis of bone) ([facility]) Rhodes's esophagus Congenital polycystic kidney disease Essential hypertension ([facility]) Gout Status post total hip replacement, right Past Surgical History: Procedure Laterality Date AV FISTULA PLACEMENT Left 12/06/2021 upper arm AV FISTULA PLACEMENT Left 01/17/[address] ANGIOGRAM ABDOMEN PELVIS 06/13/2022 CT ANGIOGRAM ABDOMEN PELVIS 06/13/2022 CT ANGIOGRAM ABDOMEN PELVIS 06/20/2023 CT ANGIOGRAM ABDOMEN PELVIS 06/20/2023 CT ANGIOGRAM HEART CORONARY 07/14/2022 CT ANGIOGRAM TAVR 07/14/2022 DIALYSIS FISTULA CREATION 10/11/2021 EGD 2015 MO INSERT MESH/PELVIC FLR ADDON 2014 Mesh Insertion Umbilical Hernia repair MO TOTAL HIP ARTHROPLASTY Right 09/10/[address] GORDON UMBILICAL HERNIA REPAIR 2011 Allergies Allergen Reactions Amoxicillin Nausea And Vomiting and Nausea Only Other reaction(s): Nausea Escitalopram Nausea Only Other reaction(s): Unknown Other reaction(s): Unknown Current Outpatient Medications on File Prior to Visit Medication Sig Dispense Refill allopurinol (Zyloprim) 100 MG tablet Take 100 mg by mouth 3 (three) times a week amLODIPine (Norvasc) 10 MG tablet Take 1 tablet (10 mg) by mouth Daily 90 tablet 3 cinacalcet (Sensipar) 30 MG tablet take 1 tablet by mouth 3 TIMES WEEKLY after DIALYSIS Sunday AND SUNDAY metoprolol succinate XL (Toprol-XL) 50 MG 24 hr tablet Take 50 mg by mouth in the morning. pantoprazole (ProtoNix) 40 MG EC tablet Take 40 mg by mouth in the morning. Take before meals. potassium chloride CR (Klor-Con M10) 10 MEQ ER tablet Take 10 mEq by mouth in the morning. sevelamer carbonate (Renvela) 800 MG tablet Take 800 mg by mouth in the morning and 800 mg at noon and 800 mg in the evening. Take with meals. valsartan-hydroCHLOROthiazide (Diovan-HCT) 320-25 MG tablet Take 1 tablet by mouth in the morning. 90 tablet 3 sertraline (Zoloft) 100 MG tablet Take 1.5 tablets (150 mg) by mouth Daily 45 tablet 2 traZODone (Desyrel) 50 MG tablet Take 2 tablets (100 mg) by mouth at bedtime Take 1-2 tablets prn for insomnia. 60 tablet 2 No current facility-administered medications on file prior to visit. Objective Last Recorded Vitals Vitals: 12/04/23 1545 BP: (!) 148/100 ENT Physical Exam Constitutional Appearance: patient appears well-developed, well-nourished and well-groomed, Communication/Voice: communication appropriate for developmental age; vocal quality normal; Assessment/Plan Diagnoses and all orders for this visit: Unilateral complete paralysis of vocal cord No cause of RT TVC paralysis evident on CT. Quality of pt's voice fluctuates, but I would like him to see a hydrodynamicist to be evaluated for TVC medialization. Pt will mushroom picker copies of his CT and take them to his appt documented in this encounterMercy Hospital St. [id number] History of Present illness Narrative* Jad Arndt MD - 11/20/2023 3:00 PM EDT Images from the original note were not included. Subjective Patient ID: Jordi Huerta is a 48 y.o. male who presents for Hoarseness Pr reports about a month ago he awoke with severe hoarseness. Fluctuates in severity, but always present. Pt seen at onset at for URI. Given abx, but did not take. After he became hoarse Dr Bhatttx with abx and steroids. No tobacco. No throat pain. Pt has heartburn. Pt states he just learned his thyroid numbers are high (TSH?) and he was started on a pill (synthroid?) by his kidney Dr. Pt to call back with the med and the dose. Review of Systems All other systems reviewed and are negative. Family History Problem Relation Name Age of Onset Heart disease Father Hypertension Father Polycystic kidney disease Father Anxiety disorder Sister Polycystic kidney disease Sister Diabetes Maternal Grandmother Diabetes Maternal Grandfather Diabetes Paternal Grandmother Diabetes Paternal Grandfather Suicidality Neg Hx Active Ambulatory Problems Diagnosis Date Noted Asymptomatic microscopic hematuria 08/18/2022 Avascular necrosis of bone of right hip ([facility]) 08/26/2018 Barretts esophagus 08/10/2015 Chews tobacco 08/18/2022 Chronic gouty arthritis 04/11/2017 Polycystic kidney disease, childhood type (CPKD) 10/29/2014 Diverticular disease of colon 03/28/2021 Diverticulitis 08/11/2022 Diverticulosis 05/26/2022 Dysuria 08/18/2022 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 Hyperparathyroidism due to renal insufficiency (CMS/HCC) 03/07/2016 Hyperuricemia 06/10/2014 Lumbar and sacral spondyloarthritis 02/15/2018 Impaired fasting glucose 03/28/2021 Morbid obesity ([facility]) 03/16/2020 Major depressive disorder, recurrent episode, in partial remission (HCC) ([facility]) 02/28/2021 Osteoarthritis of hip 04/18/2018 Polycystic kidney disease 05/26/2022 Pure hypercholesterolemia ([facility]) 05/12/2015 Rheumatoid factor positive 10/13/2020 Secondary hypertension ([facility]) 07/18/2018 Sinusitis 03/28/2021 Sleep apnea 10/29/2014 Status post right hip replacement 09/15/2018 Vitamin D deficiency 11/13/2017 CKD (chronic kidney disease) stage 5, GFR less than 15 ml/min ([facility]) 10/12/2022 History of colostomy reversal 03/22/2023 Anxiety 10/16/2023 Dialysis patient ([facility]) 11/20/2023 Diarrhea 11/20/2023 Diverticulitis of intestine with perforation without abscess 11/20/2023 ESRD (end stage renal disease) on dialysis ([facility]) 05/15/2023 GERD (gastroesophageal reflux disease) 05/15/2023 History of smokeless tobacco use 05/15/2023 Hyperlipidemia ([facility]) 05/15/2023 Nausea & vomiting 11/20/2023 Pre-transplant evaluation for kidney transplant 06/20/2023 S/P closure of ileostomy 03/22/2023 Resolved Ambulatory Problems Diagnosis Date Noted Aseptic necrosis of bone ([facility]) 05/31/2018 Benign essential hypertension ([facility]) 08/18/2022 Blood in urine 08/18/2022 Difficulty walking 09/15/2018 Panic disorder ([facility]) 12/30/2007 Perforated diverticulum of large intestine 03/16/2020 Right hip pain 09/11/2018 Stage 4 chronic kidney disease ([facility]) 07/05/2015 Tobacco dependence syndrome 05/26/[address] ([facility]) 10/12/2022 Past Medical History: Diagnosis Date AVN (avascular necrosis of bone) ([facility]) Rhodes's esophagus Congenital polycystic kidney disease Essential hypertension ([facility]) Gout Status post total hip replacement, right Past Surgical History: Procedure Laterality Date AV FISTULA PLACEMENT Left 12/06/2021 upper arm AV FISTULA PLACEMENT Left 01/17/[address] ANGIOGRAM ABDOMEN PELVIS 06/13/2022 CT ANGIOGRAM ABDOMEN PELVIS 06/13/2022 CT ANGIOGRAM ABDOMEN PELVIS 06/20/2023 CT ANGIOGRAM ABDOMEN PELVIS 06/20/2023 CT ANGIOGRAM HEART CORONARY 07/14/2022 CT ANGIOGRAM TAVR 07/14/2022 DIALYSIS FISTULA CREATION 10/11/2021 EGD 2014 MO INSERT MESH/PELVIC FLR ADDON 2014 Mesh Insertion Umbilical Hernia repair MO TOTAL HIP ARTHROPLASTY Right 09/10/[address] GORDON UMBILICAL HERNIA REPAIR 2011 Allergies Allergen Reactions Amoxicillin Nausea And Vomiting and Nausea Only Other reaction(s): Nausea Escitalopram Nausea Only Other reaction(s): Unknown Other reaction(s): Unknown Current Outpatient Medications on File Prior to Visit Medication Sig Dispense Refill allopurinol (Zyloprim) 100 MG tablet Take 100 mg by mouth 3 (three) times a week amLODIPine (Norvasc) 10 MG tablet Take 1 tablet (10 mg) by mouth Daily 90 tablet 3 cinacalcet (Sensipar) 30 MG tablet take 1 tablet by mouth 3 TIMES WEEKLY after DIALYSIS Sunday AND SUNDAY metoprolol succinate XL (Toprol-XL) 50 MG 24 hr tablet Take 50 mg by mouth in the morning. pantoprazole (ProtoNix) 40 MG EC tablet Take 40 mg by mouth in the morning. Take before meals. potassium chloride CR (Klor-Con M10) 10 MEQ ER tablet Take 10 mEq by mouth in the morning. sevelamer carbonate (Renvela) 800 MG tablet Take 800 mg by mouth in the morning and 800 mg at noon and 800 mg in the evening. Take with meals. valsartan-hydroCHLOROthiazide (Diovan-HCT) 320-25 MG tablet Take 1 tablet by mouth in the morning. 90 tablet 3 sertraline (Zoloft) 100 MG tablet Take 1.5 tablets (150 mg) by mouth Daily 45 tablet 2 traZODone (Desyrel) 50 MG tablet Take 2 tablets (100 mg) by mouth at bedtime Take 1-2 tablets prn for insomnia. 60 tablet 2 [DISCONTINUED] methylPREDNISolone (Medrol Dospak) 4 MG tablets Follow schedule on package instructions (Patient not taking: Reported on 11/15/2023) 21 tablet 0 No current facility-administered medications on file prior to visit. Objective Last Recorded Vitals Vitals: 08/20/24 1440 BP: (!) 162/102 ENT Physical Exam Constitutional Appearance: patient appears well-developed and well-nourished, Head and Face Appearance: head appears normal and face appears atraumatic; Ear Ear comments: Riley ears normal Nose External Nose: nares patent bilaterally; external nose normal; Internal Nose: nasal mucosa normal; Oral Cavity/Oropharynx Lips: normal; Teeth: normal; Gums: gingiva normal; Tongue: normal; Oral mucosa: normal; Hard palate: normal; Neck Neck: neck normal; neck palpation normal; Thyroid: thyroid normal; Respiratory Inspection: breathing unlabored; normal breathing rate; Auscultation: breath sounds are clear; Cardiovascular Inspection: extremities are warm and well perfused; no peripheral edema present; Auscultation: regular rate and rhythm; Patient ID: Jordi Huerta is a 48 y.o. male. Procedures A diagnostic flexible fiberoptic laryngoscopy was performed. The flexible fiberoptic laryngoscope was placed into the nose and advanced to the level of the tip of the epiglottis. Examination of the larynx including both surfaces of the epiglottis false and true vocal folds, arytenoids and surrounding mucosal surfaces show no evidence of lesion, ulceration or mass. The right TVC is immobile in a fairly lateral position. Bilateral piriform sinuses and base of tongue appear without lesion Assessment/Plan Diagnoses and all orders for this visit: Unilateral complete paralysis of vocal cord Hoarse Pt's hoarseness is due to a TVC paralysis. I will check a CT of the neck and chest to evaluate for a neoplasm that might have caused the paralysis. P{t will likely benefit from medialization as the TVC is in a fairly lateral position documented in this encounterMercy Hospital St. [id number] Discharge summary Author Redd Payton [facility] August 10, 2022 3:09pmNote Date/TimeMay 2022 2:18pmPaul Ville [id number] Discharge Summary Signed Patient: Jordi Huerta MR#: [id number] : 1975 Acct:[id number] Age/Sex: 47 / M Adm Date: 3 Loc: Room: [address] [place] [address]: Redd Payton MD Copies to: MD Joe Beth,DO~ Providers Date of Discharge: 08/10/22 Discharging Provider: Redd Payton Primary Care Provider: Joe Jauregui Consults: 08/07/22 06:11 Consult to Nephrology Routine 08/07/22 06:29 Consult to General Surgery Routine Discharge Diagnosis Final Diagnosis Final Discharge Diagnosis: Acute sigmoid diverticulitis with microperforations without abscess Chronic problems End-stage renal disease on hemodialysis, due to polycystic kidney disease Anxiety disorder Gout GERD Rhodes's esophagus Hypertension Sleep apnea Summary Hospital Course Hospital course: Patient is a 47-year-old male, with a number of chronic medical comorbidities, notably end-stage renal disease on hemodialysis. He presented to the emergency department on August 07, complaining of severe left lower quadrant pain. [facility] consistent with acute diverticulitis and microperforation. He had an episode of this in the past. He was admitted to the hospital. He was seen by general surgery. Conservative management was advised with IV antibiotics. Patient improved very slowly. Eventually, it was felt that given his potential renal transplant and subsequentimmunosuppressive therapy, his recurrent diverticulitis needs to be treated surgically with hemicolectomy. It was decided that this would be best achieved in the same tertiary care center where the renal transplant will be performed. In consequence, the patient was transferred in stable condition to [facility]. Time Spent with Patient Time spent providing/coordinating discharge services (# min): 20 Diagnostic Studies Completed and Pending Studies Labs on day of discharge: 08/10/22 05:40: Corrected WBC 13.8 H, RBC 4.25, Hgb 12.8 L, Hct 39.0, MCV 91.7, MCH 30.1, MCHC 32.8, RDW 14.7, Plt Count 244, MPV 8.3 08/10/22 05:40: PHA Creatinine Clear 12.16, Sodium 137, Potassium 3.7, Chloride 97 L, Carbon Dioxide 22.1, Anion Gap 21.6 H, BUN 87 H, Creatinine 9.08 H D, Est GFR (CKD-EPI) 6.701, Glucose 97, Calcium 9.5, Phosphorus 7.7 H, Albumin 3.6 Exam Physical Exam Vital Signs: Temp Pulse Resp BP Pulse Ox O2 Del Method 98.1 F 71 18 109/69 95 Room Air 08/10/22 13:18 08/10/22 13:18 08/10/22 13:18 08/10/22 13:18 08/10/22 13:18 08/10/22 13:18 Discharge Plan Discharge Plan Patient Disposition: Hospital Acute Care Other Activity: No Activity Restriction Diet: Clear Liquid Additional Instructions: Full code Continue Hemodialysis 3 times per week Prescriptions: New valsartan 320 mg tablet 320 mg PO DAILY 90 Days Qty: 90 1RF Continued amlodipine 10 mg tablet 10 mg PO QAM Patient Comments: take 1 tablet by mouth every morning pantoprazole 40 mg tablet,delayed release (DR/EC) 40 mg PO QAM Patient Comments: take 1 tablet by mouth once daily metoprolol tartrate 25 mg tablet 25 mg PO QHS Patient Comments: TAKE 1/2 TABLET BY MOUTH TWICE A DAY WITH FOOD allopurinol 100 mg Tablet 100 mg PO DAILY cinacalcet [Sensipar] 30 mg Tablet 30 mg PO DAILY pramipexole 0.25 mg tablet 0.25 mg PO QHS Patient Comments: take 1 tablet by mouth once daily 2 to 3 hours BEFORE BEDTIME sevelamer carbonate 800 mg tablet 800 mg PO TIDWM Patient Comments: take 1 tablet by mouth with meals furosemide 40 mg tablet 40 mg PO BID Patient Comments: take 1 tablet by mouth twice a day sertraline 50 mg tablet 50 mg PO QAM Patient Comments: take 1 tablet by mouth once daily calcitriol 0.25 mcg capsule 0.5 mcg PO DAILY Patient Comments: take 1 capsule by mouth THREE TIMES A WEEK Discontinued potassium chloride 10 mEq capsule, extended release 10 meq PO DAILY Patient Comments: take 1 capsule by mouth twice a day with food valsartan-hydrochlorothiazide 320-25 mg tablet 1 tab PO QAM Patient Comments: take 1 tablet by mouth every morning sodium bicarbonate 650 mg Tablet 650 mg PO BID prednisone 50 mg tablet 50 mg PO DAILY PRN (Reason: Pain) Patient Comments: take 1 tablet by mouth once daily Rx Instructions: take one tab daily as needed for gout Documented By: Redd Payton MD 08/10/22 1418 Signed By: <Electronically signed by Redd Payton MD> 08/10/22 [id number] [facility] Work Phone: 1(508) 383-611805-11-2023 Progress note Author Melquiades Ayala [facility] August 10, 2022 12:29pmNote Date/TimeMay 2022 7:17aRenee Ville [id number] General Surgery Progress Note Signed Patient: Jordi Huerta MR#: [id number] : 1975 Acct:[id number] Age/Sex: 47 / M Adm Date: 3 Loc: Room: [address] [place] [address] Type: ADM IN Attending Dr: Redd Payton MD Copies to: ~ Date of Service: 08/10/2022 Subjective Subjective Patient reports: no new complaints and feels better HPI: Mr. Huerta is a 47-year-old male seen for ongoing diverticulitis.? He states he is feeling better today.? Abdominal pain is reduced, localized to the LLQ. The pain is a 5/10 at rest and an 8/10 with movement. He has been tolerating ice chips and liquids without difficulty.? Denies any nausea or vomiting.? Denies any bowel movement, but flatus present. He is scheduled for dialysis today. Allergies & Medications Medications and Allergies Allergies amoxicillin Allergy (Verified 01/17/22 06:51) Nausea Home Medications amlodipine 10 mg tablet 10 mg PO QAM htn 03/25/20 [History Confirmed 08/07/22] metoprolol tartrate 25 mg tablet 25 mg PO QHS htn 03/25/20 [History Confirmed 08/07/22] pantoprazole 40 mg tablet,delayed release 40 mg PO QAM gerd 03/25/20 [History Confirmed 08/07/22] potassium chloride 10 mEq capsule,extended release 10 meq PO DAILY 03/25/20 [History Confirmed 08/07/22] valsartan 320 mg-hydrochlorothiazide 25 mg tablet 1 tab PO QAM htn 03/25/20 [History Confirmed 08/07/22] calcitriol 0.25 mcg capsule 0.5 mcg PO DAILY kidneys 10/06/21 [History Confirmed 08/07/22] furosemide 40 mg tablet 40 mg PO BID kidneys 10/06/21 [History Confirmed 08/07/22] sertraline 50 mg tablet 50 mg PO QAM anxiety 10/06/21 [History Confirmed 08/07/22] allopurinol 100 mg tablet 100 mg PO DAILY 01/09/22 [History Confirmed 08/07/22] cinacalcet 30 mg tablet (Sensipar) 30 mg PO DAILY 01/09/22 [History Confirmed 08/07/22] sodium bicarbonate 650 mg tablet 650 mg PO BID 01/09/22 [History Confirmed 08/07/22] pramipexole 0.25 mg tablet 0.25 mg PO QHS 08/07/22 [History Confirmed 08/07/22] sevelamer carbonate 800 mg tablet 800 mg PO TIDWM 08/07/22 [History Confirmed 08/07/22] prednisone 50 mg tablet 50 mg PO DAILY PRN Pain 08/08/22 [History Confirmed 08/08/22] valsartan 320 mg tablet 320 mg PO DAILY 90 days #90 tabs 08/10/22 [Rx] Active Medications Acetaminophen (Acetaminophen 500 Mg Tablet) 1,000 mg PO Q6HR PRN PRN Reason: Pain Scale 1 - 3 or fever Stop: 08/07/23 06:00 Allopurinol (Allopurinol 100 Mg Tablet) 100 mg PO DAILY FLAVIO Stop: 08/07/23 08:59 Last Admin: 08/09/22 08:44 Dose: 100 mg Amlodipine Besylate (Amlodipine 10 Mg Tablet) 10 mg PO DAILY FLAVIO Stop: 08/08/23 08:59 Last Admin: 08/09/22 08:43 Dose: 10 mg Calcitriol (Calcitriol 0.5 Mcg Capsule) 0.5 mcg PO DAILY FLAVIO Stop: 08/07/23 08:59 Last Admin: 08/09/22 08:43 Dose: 0.5 mcg Furosemide (Furosemide 40 Mg Tablet) 40 mg PO BID@0800,1600 FLAVIO Stop: 08/07/23 07:59 Last Admin: 08/08/22 09:28 Dose: Not Given Heparin Sodium (Porcine) (Heparin 5,000 Unit/Ml Vial) 5,000 unit SUBCUT Q12HR FLAVIO Stop: 08/07/23 08:59 Last Admin: 08/09/22 21:56 Dose: 5,000 unit Heparin Sodium (Porcine) (Heparin 10,000 Unit/10 Ml Vial) 1,000 unit IV PRN PRN PRN Reason: Dialysis Stop: 08/08/23 08:59 Last Admin: 08/08/22 10:16 Dose: 1,000 unit Heparin Sodium (Porcine) (Heparin 10,000 Unit/10 Ml Vial) 3,000 unit IV PRN PRN PRN Reason: Dialysis Stop: 08/08/23 08:59 Last Admin: 08/08/22 10:17 Dose: 3,000 unit Hydromorphone HCl (Hydromorphone 0.5 Mg/0.5 Ml Syringe) 0.25 mg IV-PUSH Q4H PRN PRN Reason: Pain Scale 8 - 10 Last Admin: 08/07/22 06:54 Dose: 0.25 mg Hydromorphone HCl (Hydromorphone 1 Mg/Ml Syringe) 1 mg IV-PUSH Q2H PRN PRN Reason: pain Last Admin: 08/10/22 05:25 Dose: 1 mg Metronidazole (Flagyl) 500 mg in 100 mls @ 100 mls/hr IV Q8H [facility] Last Admin: 08/10/22 05:30 Dose: 100 mls/hr Ceftriaxone Sodium (Rocephin) 2 gm in 50 mls @ 100 mls/hr IV Q24H [facility] Last Infusion: 08/09/22 15:09 Dose: Infused Sodium Chloride (0.9% Sodium Chloride 1,000 Ml) 1,000 mls @ 0 mls/hr MISCELLANE .Q0M PRN PRN Reason: Dialysis Stop: 08/08/23 08:58 Last Infusion: 08/08/22 10:18 Dose: Infused Melatonin (Melatonin 5 Mg Tablet) 5 mg PO QHS PRN PRN Reason: Insomnia Stop: 08/07/23 06:00 Last Admin: 08/09/22 21:55 Dose: 5 mg Metoprolol Tartrate (Metoprolol Tartrate 25 Mg Tablet) 25 mg PO BID [facility] Stop: 08/07/23 20:59 Last Admin: 08/09/22 21:56 Dose: 25 mg Naloxone HCl (Naloxone Hcl 0.4 Mg/Ml Vial) 0.1 mg IV-PUSH Q2M PRN PRN Reason: Opioid Reversal Stop: 08/07/23 06:00 Ondansetron HCl (Ondansetron 4 Mg/2 Ml Vial) 4 mg IV-PUSH Q8H PRN PRN Reason: Nausea And Vomiting Stop: 08/07/23 06:00 Pantoprazole Sodium (Pantoprazole 40 Mg Tablet.Dr) 40 mg PO DAILY [facility] Stop: 08/07/23 08:59 Last Admin: 08/09/22 08:43 Dose: 40 mg Potassium Chloride (Potassium Chloride Er 10 Meq Capsule.Er) 10 meq PO DAILY [facility] Stop: 08/07/23 08:59 Last Admin: 08/09/22 08:43 Dose: 10 meq Pramipexole Dihydrochloride (Pramipexole 0.25 Mg Tablet) 0.25 mg PO QHS [facility] Stop: 08/07/23 21:59 Last Admin: 08/09/22 21:55 Dose: 0.25 mg Prednisone (Prednisone 20 Mg Tablet) 40 mg PO DAILY [facility] Stop: 08/11/22 09:01 Last Admin: 08/09/22 08:43 Dose: 40 mg Sertraline HCl (Sertraline 50 Mg Tablet) 50 mg PO QAM [facility] Stop: 08/07/23 08:59 Last Admin: 08/09/22 08:43 Dose: 50 mg Sevelamer Carbonate (Sevelamer Carbonate 800 Mg Tablet) 800 mg PO TID.WITH.MEALS [facility] Stop: 08/07/23 07:59 Last Admin: 08/08/22 11:36 Dose: Not Given Sodium Chloride (Sodium Chloride 0.9 % 10 Ml Syringe) 10 ml IV-PUSH PRN PRN PRN Reason: Flush Stop: 08/07/23 13:32 Last Admin: 08/10/22 05:25 Dose: 10 ml Sodium Chloride (Sodium Chloride 0.9 % 10 Ml Syringe) 0 ml IV-PUSH PRN PRN PRN Reason: Flush Stop: 08/08/23 08:58 Last Admin: 08/08/22 10:16 Dose: 10 ml Valsartan (Valsartan 320 Mg Tablet) 320 mg PO DAILY [facility] Stop: 08/07/23 08:59 Last Admin: 08/09/22 08:43 Dose: 320 mg Exam Physical Exam Vital Signs: Temp Pulse Resp BP Pulse Ox O2 Del Method 98.4 F 72 18 115/66 93 L Room Air 08/09/22 21:53 08/09/22 21:53 08/09/22 21:53 08/09/22 21:53 08/09/22 21:53 08/09/22 23:24 Narrative: Patient resting in bed, able to move more freely without pain or discomfort. Abdomen mildly distended.? Tenderness to palpation in all 4 quadrants, predominantly LUQ today.? Pain is a 8 out of 10 with movement, sharp, aching, and stabbing.? Bowel sounds normal all 4 quadrants.? Heart regular rate and rhythm.? Lungs clear to auscultation bilaterally. Const General: cooperative Orientation: alert, awake and oriented x3 HEENT Head: normal to inspection Ears: hearing grossly normal bilaterally Face and sinus: normal facial exam Eyes General: appearance normal, both eyes and all related structures Neck Neck: normal visual inspection Resp Effort & Inspection: normal respiratory effort Auscultation: clear to auscultation bilaterally, no rales, no rhonchi and no wheezes Cardio Rate: regular rate Rhythm: regular rhythm Heart Sounds: no gallops, no murmurs and no rubs GI Inspection: distended Palpation: soft, no masses and tender Percussion: normal to percussion Auscultation: normal bowel sounds Neuro General: patient alert, patient awake and patient oriented x3 Objective Pain Assessment Generalized Abdomen: Pain Description: Intermittent, Sharp and Stabbing Pain Intensity: 5 Intake & Output 24 hour I&O: Intake & Output 08/09/22 08/09/22 08/10/22 15:59 23:59 07:59 Intake Total 250 / 800 400 / 800 150 / 150 Balance 250 / 800 400 / 800 150 / 150 Weight 103.1 kg Labs 08/10/22 05:40 08/08/22 05:58 Laboratory Results - Last 48 hrs. 08/10/22 05:40: Corrected WBC 13.8 H, RBC 4.25, Hgb 12.8 L, Hct 39.0, MCV 91.7, MCH 30.1, MCHC 32.8, RDW 14.7, Plt Count 244, MPV 8.3 08/09/22 05:54: Corrected WBC 12.5 H, RBC 4.39, Hgb 13.2, Hct 40.3, MCV 91.8, MCH 30.1, MCHC 32.8, RDW 14.9 H, Plt Count 202, MPV 8.0 A&P - General Surgery Assessment/Plan (1) Diverticulitis: Code(s): K57.92 - Diverticulitis of intestine, part unspecified, without perforation or abscess without bleeding Status: Acute (2) Diverticulitis of intestine with perforation without abscess: Code(s): K57.80 - Diverticulitis of intestine, part unspecified, with perforation and abscess without bleeding Status: Acute (3) Dialysis patient: Code(s): Z99.2 - Dependence on renal dialysis Status: Acute Plan I have personally seen and examined the patient on this date of the encounter. I have performed thekey parts of the physical examination, as well as review of the history, and pertinent tests. I have formulated the plan of care and made appropriate entries into the patient's chart. Mr Huerta is a 47 M admitted for diverticulitis. Previous history of diverticulitis 3 years ago, resolved with hospitalization and Antibiotics. He has no systemic symptoms, denies any fever or chills.States he has passed gas, no bowel movements. Pain is now an 8 out of 10 with movement. His pain and discomfort is continuing to improve in both character and intensity. Patient's white count today went up to 13.8. He continues to have abdominal pain with minimal improvements despite several days of antibiotics. I discussed with the patient the consideration for surgical resection in light of the fact that this is his second episode of perforated diverticulitis andhe is working towards having a kidney transplant in the near future. Once his transplant is completed he will be on immunosuppressive therapy and in light of his history of perforated diverticulitis I feel surgical resection of this area at this time should be strongly considered. Due to the fact that he is arranging his transplant care through [facility] we discussed transferring him to that facility so that all his care can be contained in the same facility. He is very much in favorof that. I attempted to get in touch with the nurse coordinator for the kidney transplant team Kirill [phone] but have not received a call back from her. I therefore contacted the main transfer line and spoke with Dr. Mcguire from general surgery who accepted him for transfer. I explainedthe situation and my recommendation for surgical resection, he appeared to be in agreement. The patient will be transferred to [facility] as soon as a bed is available. Documented By: Melquiades Ayala DO 08/10/22 07 10 Signed By: <Electronically signed by Melquiades Ayala DO> 08/10/22 0096 [facility] Work Phone: [phone]) 862-475105-11-2023 Progress note Author Fredy Bryant [facility] August 10, 2022 9:38amNote Date/TimeMay 2022 9:[address] [address] Nephrology Progress Note Signed Patient: Jordi Huerta MR#: [id number] : 1975 Acct:[id number] Age/Sex: 47 / M Adm Date: 3 Loc: Room: [address] [place] [address] Type: ADM IN Attending Dr: Redd Payton MD Copies to: ~ Date of Service: 08/10/2022 Subjective Subjective Narrative: This is a 47-year-old male with medical history of Rhodes's esophagus, arthritis, gout, hypertension, polycystic kidney disease, sleep apnea, ESRD and diverticulitis was presented to the [facility] for left lower quadrant pain. Patient had a CAT scan abdomen pelvis done in the emergency room which showed numerous simple and complex cysts on his kidneys, multiple diverticula inthe descending and sigmoid colon.? Most notable abnormal thickening of the proximal sigmoid with free air indicating microperforations.? No abscess or freefluid noted. Patient has a Palutsis focus and had diverticulitis in the past. He follows with Dr. Ledesma and scheduled to see me in August. Patient was started on IV antibiotic and was transferred to [facility] due tohis ESRD. He has a history of ESRD due to polycystic kidney disease and currently goes to the [facility] on TTS schedule. His last hemodialysis was Sunday. Currently has AV fistula as a dialysis access. Nephrologyis consulted for ESRD management during the hospital stay. Interval history Patient was seen and examined at bedside during hemodialysis. He still has abdominal pain but improving. His diet is not advanced to the clear liquid. Denies any nausea vomiting shortness of breath chest pain palpitation. Exam Physical Exam Vital Signs: Temp Pulse Resp BP Pulse Ox O2 Del Method 98.4 F 72 18 115/66 93 L Room Air 08/09/22 21:53 08/09/22 21:53 08/09/22 21:53 08/09/22 21:53 08/09/22 21:53 08/09/22 23:24 Narrative: General: Appears comfortable and not in distress Heart: S1-S2, no rub Lung: Bilateral air entry, no wheezing or crackles Abdomen: Soft, positive bowel sounds Extremities: No edema, no cyanosis Head: Atraumatic, normocephalic Ear: No gross hearing Deficit or external ear redness Eyes: No pallor or redness Neck: No JVD or visible mass Skin: No rashes or bruises SPA HOST: Awake,Alert, following simple command Musculoskeletal: No joint swelling or limitation of movement Psychiatric: Cooperative, normal mood and affect Objective Intake and Output I&O: Intake & Output 08/07/22 08/08/22 08/09/22 08/10/22 23:59 23:59 23:59 23:59 Intake Total 1410 / 1410 1150 / 1150 800 / 800 150 / 150 Output Total 3000 / 3000 Balance 1410 / 1410 -1850 / -1850 800 / 800 150 / 150 Weight 105.5 kg 107.3 kg 105.4 kg 103.1 kg Meds and Allergies Meds: Active Medications Acetaminophen (Acetaminophen 500 Mg Tablet) 1,000 mg PO Q6HR PRN PRN Reason: Pain Scale 1 - 3 or fever Stop: 08/07/23 06:00 Allopurinol (Allopurinol 100 Mg Tablet) 100 mg PO DAILY [facility] Stop: 08/07/23 08:59 Last Admin: 08/09/22 08:44 Dose: 100 mg Amlodipine Besylate (Amlodipine 10 Mg Tablet) 10 mg PO DAILY [facility] Stop: 08/08/23 08:59 Last Admin: 08/09/22 08:43 Dose: 10 mg Calcitriol (Calcitriol 0.5 Mcg Capsule) 0.5 mcg PO DAILY [facility] Stop: 08/07/23 08:59 Last Admin: 08/09/22 08:43 Dose: 0.5 mcg Furosemide (Furosemide 40 Mg Tablet) 40 mg PO BID@0800,1600 [facility] Stop: 08/07/23 07:59 Last Admin: 08/08/22 09:28 Dose: Not Given Heparin Sodium (Porcine) (Heparin 5,000 Unit/Ml Vial) 5,000 unit SUBCUT Q12HR [facility] Stop: 08/07/23 08:59 Last Admin: 08/09/22 21:56 Dose: 5,000 unit Heparin Sodium (Porcine) (Heparin 10,000 Unit/10 Ml Vial) 1,000 unit IV PRN PRN PRN Reason: Dialysis Stop: 08/08/23 08:59 Last Admin: 08/08/22 10:16 Dose: 1,000 unit Heparin Sodium (Porcine) (Heparin 10,000 Unit/10 Ml Vial) 3,000 unit IV PRN PRN PRN Reason: Dialysis Stop: 08/08/23 08:59 Last Admin: 08/08/22 10:17 Dose: 3,000 unit Hydromorphone HCl (Hydromorphone 0.5 Mg/0.5 Ml Syringe) 0.25 mg IV-PUSH Q4H PRN PRN Reason: Pain Scale 8 - 10 Last Admin: 08/07/22 06:54 Dose: 0.25 mg Hydromorphone HCl (Hydromorphone 1 Mg/Ml Syringe) 1 mg IV-PUSH Q2H PRN PRN Reason: pain Last Admin: 08/10/22 08:54 Dose: 1 mg Metronidazole (Flagyl) 500 mg in 100 mls @ 100 mls/hr IV Q8H [facility] Last Admin: 08/10/22 05:30 Dose: 100 mls/hr Ceftriaxone Sodium (Rocephin) 2 gm in 50 mls @ 100 mls/hr IV Q24H [facility] Last Infusion: 08/09/22 15:09 Dose: Infused Sodium Chloride (0.9% Sodium Chloride 1,000 Ml) 1,000 mls @ 0 mls/hr MISCELLANE.Q0M PRN PRN Reason: Dialysis Stop: 08/08/23 08:58 Last Infusion: 08/08/22 10:18 Dose: Infused Sodium Chloride (0.9% Sodium Chloride 1,000 Ml) 1,000 mls @ 0 mls/hr MISCELLANE.Q0M PRN PRN Reason: Dialysis Stop: 08/10/23 08:44 Melatonin (Melatonin 5 Mg Tablet) 5 mg PO QHS PRN PRN Reason: Insomnia Stop: 08/07/23 06:00 Last Admin: 08/09/22 21:55 Dose: 5 mg Metoprolol Tartrate (Metoprolol Tartrate 25 Mg Tablet) 25 mg PO BID [facility] Stop: 08/07/23 20:59 Last Admin: 08/09/22 21:56 Dose: 25 mg Naloxone HCl (Naloxone Hcl 0.4 Mg/Ml Vial) 0.1 mg IV-PUSH Q2M PRN PRN Reason: Opioid Reversal Stop: 08/07/23 06:00 Ondansetron HCl (Ondansetron 4 Mg/2 Ml Vial) 4 mg IV-PUSH Q8H PRN PRN Reason: Nausea And Vomiting Stop: 08/07/23 06:00 Pantoprazole Sodium (Pantoprazole 40 Mg Tablet.Dr) 40 mg PO DAILY [facility] Stop: 08/07/23 08:59 Last Admin: 08/09/22 08:43 Dose: 40 mg Potassium Chloride (Potassium Chloride Er 10 Meq Capsule.Er) 10 meq PO DAILY [facility] Stop: 08/07/23 08:59 Last Admin: 08/09/22 08:43 Dose: 10 meq Pramipexole Dihydrochloride (Pramipexole 0.25 Mg Tablet) 0.25 mg PO QHS [facility] Stop: 08/07/23 21:59 Last Admin: 08/09/22 21:55 Dose: 0.25 mg Prednisone (Prednisone 20 Mg Tablet) 40 mg PO DAILY [facility] Stop: 08/11/22 09:01 Last Admin: 08/09/22 08:43 Dose: 40 mg Sertraline HCl (Sertraline 50 Mg Tablet) 50 mg PO QAM [facility] Stop: 08/07/23 08:59 Last Admin: 08/09/22 08:43 Dose: 50 mg Sevelamer Carbonate (Sevelamer Carbonate 800 Mg Tablet) 800 mg PO TID.WITH.MEALS [facility] Stop: 08/07/23 07:59 Last Admin: 08/08/22 11:36 Dose: Not Given Sodium Chloride (Sodium Chloride 0.9 % 10 Ml Syringe) 10 ml IV-PUSH PRN PRN PRN Reason: Flush Stop: 08/07/23 13:32 Last Admin: 08/10/22 08:54 Dose: 10 ml Sodium Chloride (Sodium Chloride 0.9 % 10 Ml Syringe) 0 ml IV-PUSH PRN PRN PRN Reason: Flush Stop: 08/08/23 08:58 Last Admin: 08/08/22 10:16 Dose: 10 ml Sodium Chloride (Sodium Chloride 0.9 % 10 Ml Syringe) 0 ml IV-PUSH PRN PRN PRN Reason: Flush Stop: 08/10/23 08:44 Valsartan (Valsartan 320 Mg Tablet) 320 mg PO DAILY [facility] Stop: 08/07/23 08:59 Last Admin: 08/09/22 08:43 Dose: 320 mg Allergies amoxicillin Allergy (Verified 01/17/22 06:51) Nausea Results Labs 08/10/22 05:40 08/10/22 05:40 Labs: 08/10/22 05:40 BUN 87 H Creatinine 9.08 H D Phosphorus 7.7 H Albumin 3.6 Radiology Impressions Impressions - last 24 hours: Any impression(s) listed above is documentation that was entered by the reading physician into a diagnostic report(s) for Jordi Huerta. I have reviewed the report(s) and am incorporating any findings in the treatment plan of this patient where applicable. A&P - Nephrology Assessment/Plan (1) Diverticulitis of intestine with perforation without abscess: Plan: He presented abnormal pain and was found to have diverticulitis. Currently on IV antibiotics.General surgery has been consulted. (2) ESRD (end stage renal disease) on dialysis: Plan: He is a ESRD due to polycystic kidney disease. Currently goes to the [facility] on TTS schedule (3) Benign hypertension with end-stage renal disease: Plan: Blood count he takes multiple antihypertensive medication including amlodipine, furosemide, metoprolol, valsartan?hydrochlorothiazide (4) Secondary hyperparathyroidism: Plan: He has a secondary hyperparathyroidism currently takes calcitriol, sevelamer andSensipar (5) Polycystic kidney disease: Plan: Patient has a polycystic kidney disease runs in the family. Plan * Hemodialysis today as ordered * Continue IV antibiotics for diverticulitis. Pharmacy to dose medication. * Continue home dose of the antihypertensive medication including amlodipine, metoprolol, valsartan * Stop hydrochlorothiazide and sodium bicarbonate upon discharge. Patient should not be taking these medications. * Continue home dose of the calcitriol and Cinacalcet. * Will hold sevelamer as patient is currently on clear liquid diet. * Check renal function daily Documented By: Fredy Bryant MD 08/10/22927 Signed By: <Electronically signed by Fredy Bryant MD> 08/10/22937 [facility] Work Phone: [phone] Progress note Author Melquiades Ayala [facility] August 09, 2022 5:29pmNote Date/TimeMay 2022 7:00[place] [address] General Surgery Progress Note Signed Patient: Jordi Huerta MR#: [id number] : 1975 Acct:[id number] Age/Sex: 47 / M Adm Date: 3 Loc: Room: [address] [place] [address] Type: ADM IN Attending Dr: Redd Payton MD Copies to: ~ Date of Service: 08/09/2022 Subjective Subjective Patient reports: no new complaints, feels better, flatus, no bowel movement and afebrile HPI: Mr. Moss is a 47-year-old male seen for ongoing diverticulitis. He states he isfeeling better today. Abdominal pain is still present. His pain is 6 out of 10while lying in bed, aggravated to a 10 outof 10 with movement. He has been tolerating ice chips and liquids without difficulty. Denies any nausea or vomiting. Denies any bowel movement. Able to pass gas. Allergies & Medications Medications and Allergies Allergies amoxicillin Allergy (Verified 01/17/22 06:51) Nausea Home Medications amlodipine 10 mg tablet 10 mg PO QAM htn 03/25/20 [History Confirmed 08/07/22] metoprolol tartrate 25 mg tablet 25 mg PO QHS htn 03/25/20 [History Confirmed 08/07/22] pantoprazole 40 mg tablet,delayed release 40 mg PO QAM gerd 03/25/20 [History Confirmed 08/07/22] potassium chloride 10 mEq capsule,extended release 10 meq PO DAILY 03/25/20 [History Confirmed 08/07/22] valsartan 320 mg-hydrochlorothiazide 25 mg tablet 1 tab PO QAM htn 03/25/20 [History Confirmed 08/07/22] calcitriol 0.25 mcg capsule 0.5 mcg PO DAILY kidneys 10/06/21 [History Confirmed 08/07/22] furosemide 40 mg tablet 40 mg PO BID kidneys 10/06/21 [History Confirmed 08/07/22] sertraline 50 mg tablet 50 mg PO QAM anxiety 10/06/21 [History Confirmed 08/07/22] allopurinol 100 mg tablet 100 mg PO DAILY 01/09/22 [History Confirmed 08/07/22] cinacalcet 30 mg tablet (Sensipar) 30 mg PO DAILY 01/09/22 [History Confirmed 08/07/22] sodium bicarbonate 650 mg tablet 650 mg PO BID 01/09/22 [History Confirmed 08/07/22] pramipexole 0.25 mg tablet 0.25 mg PO QHS 08/07/22 [History Confirmed 08/07/22] sevelamer carbonate 800 mg tablet 800 mg PO TIDWM 08/07/22 [History Confirmed 08/07/22] prednisone 50 mg tablet 50 mg PO DAILY PRN Pain 08/08/22 [History Confirmed 08/08/22] Active Medications Acetaminophen (Acetaminophen 500 Mg Tablet) 1,000 mg PO Q6HR PRN PRN Reason: Pain Scale 1 - 3 or fever Stop: 08/07/23 06:00 Allopurinol (Allopurinol 100 Mg Tablet) 100 mg PO DAILY [facility] Stop: 08/07/23 08:59 Last Admin: 08/08/22 13:56 Dose: 100 mg Amlodipine Besylate (Amlodipine 10 Mg Tablet) 10 mg PO DAILY [facility] Stop: 08/08/23 08:59 Last Admin: 08/08/22 13:57 Dose: 10 mg Calcitriol (Calcitriol 0.5 Mcg Capsule) 0.5 mcg PO DAILY [facility] Stop: 08/07/23 08:59 Last Admin: 08/08/22 13:56 Dose: 0.5 mcg Furosemide (Furosemide 40 Mg Tablet) 40 mg PO BID@0800,1600 [facility] Stop: 08/07/23 07:59 Last Admin: 08/08/22 09:28 Dose: Not Given Heparin Sodium (Porcine) (Heparin 5,000 Unit/Ml Vial) 5,000 unit SUBCUT Q12HR [facility] Stop: 08/07/23 08:59 Last Admin: 08/08/22 22:00 Dose: 5,000 unit Heparin Sodium (Porcine) (Heparin 10,000 Unit/10 Ml Vial) 1,000 unit IV PRN PRN PRN Reason: Dialysis Stop: 08/08/23 08:59 Last Admin: 08/08/22 10:16 Dose: 1,000 unit Heparin Sodium (Porcine) (Heparin 10,000 Unit/10 Ml Vial) 3,000 unit IV PRN PRN PRN Reason: Dialysis Stop: 08/08/23 08:59 Last Admin: 05/09/23 10:17 Dose: 3,000 unit Hydromorphone HCl (Hydromorphone 0.5 Mg/0.5 Ml Syringe) 0.25 mg IV-PUSH Q4H PRN PRN Reason: Pain Scale 8 - 10 Last Admin: 08/07/22 06:54 Dose: 0.25 mg Hydromorphone HCl (Hydromorphone 1 Mg/Ml Syringe) 1 mg IV-PUSH Q2H PRN PRN Reason: pain Last Admin: 08/09/22 06:05 Dose: 1 mg Metronidazole (Flagyl) 500 mg in 100 mls @ 100 mls/hr IV Q8H [facility] Last Admin: 08/09/22 06:05 Dose: 100 mls/hr Ceftriaxone Sodium (Rocephin) 2 gm in 50 mls @ 100 mls/hr IV Q24H [facility] Last Infusion: 08/08/22 14:26 Dose: Infused Sodium Chloride (0.9% Sodium Chloride 1,000 Ml) 1,000 mls @ 0 mls/hr MISCELLANE.Q0M PRN PRN Reason: Dialysis Stop: 08/08/23 08:58 Last Infusion: 08/08/22 10:18 Dose: Infused Melatonin (Melatonin 5 Mg Tablet) 5 mg PO QHS PRN PRN Reason: Insomnia Stop: 08/07/23 06:00 Last Admin: 08/08/22 22:00 Dose: 5 mg Metoprolol Tartrate (Metoprolol Tartrate 25 Mg Tablet) 25 mg PO BID [facility] Stop: 08/07/23 20:59 Last Admin: 08/08/22 22:02 Dose: 25 mg Naloxone HCl (Naloxone Hcl 0.4 Mg/Ml Vial) 0.1 mg IV-PUSH Q2M PRN PRN Reason: Opioid Reversal Stop: 08/07/23 06:00 Ondansetron HCl (Ondansetron 4 Mg/2 Ml Vial) 4 mg IV-PUSH Q8H PRN PRN Reason: Nausea And Vomiting Stop: 08/07/23 06:00 Pantoprazole Sodium (Pantoprazole 40 Mg Tablet.Dr) 40 mg PO DAILY [facility] Stop: 08/07/23 08:59 Last Admin: 08/08/22 13:57 Dose: 40 mg Potassium Chloride (Potassium Chloride Er 10 Meq Capsule.Er) 10 meq PO DAILY [facility] Stop: 05/07/24 08:59 Last Admin: 08/08/22 13:57 Dose: 10 meq Pramipexole Dihydrochloride (Pramipexole 0.25 Mg Tablet) 0.25 mg PO QHS [facility] Stop: 08/07/23 21:59 Last Admin: 08/08/22 22:01 Dose: 0.25 mg Prednisone (Prednisone 20 Mg Tablet) 40 mg PO DAILY [facility] Stop: 08/11/22 09:01 Last Admin: 08/08/22 22:29 Dose: 40 mg Sertraline HCl (Sertraline 50 Mg Tablet) 50 mg PO QAM [facility] Stop: 08/07/23 08:59 Last Admin: 08/08/22 13:56 Dose: 50 mg Sevelamer Carbonate (Sevelamer Carbonate 800 Mg Tablet) 800 mg PO TID.WITH.MEALS [facility] Stop: 08/07/23 07:59 Last Admin: 08/08/22 11:36 Dose: Not Given Sodium Chloride (Sodium Chloride 0.9 % 10 Ml Syringe) 10 ml IV-PUSH PRN PRN PRN Reason: Flush Stop: 08/07/23 13:32 Last Admin: 08/09/22 06:05 Dose: 10 ml Sodium Chloride (Sodium Chloride 0.9 % 10 Ml Syringe) 0 ml IV-PUSH PRN PRN PRN Reason: Flush Stop: 08/08/23 08:58 Last Admin: 08/08/22 10:16 Dose: 10 ml Valsartan (Valsartan 320 Mg Tablet) 320 mg PO DAILY [facility] Stop: 08/07/23 08:59 Last Admin: 08/08/22 14:04 Dose: 320 mg Exam Physical Exam Vital Signs: Temp Pulse Resp BP Pulse Ox O2 Del Method 98.4 F 86 20 92/56 L 93 L Room Air 08/08/22 23:24 08/08/22 19:41 08/08/22 23:24 08/08/22 23:24 08/08/22 23:24 08/08/22 23:24 Narrative: Patient is resting in bed, well-appearing and conversant. Abdomen is still mildly distended. Tenderness to palpation in all 4 quadrants, predominantly in the left lower quadrant. Pain is a 10 out of 10 with movement, sharp, aching, and stabbing. Bowel sounds normal all 4 quadrants. Heart regular rate and rhythm. Lungs clear to auscultation bilaterally. Const General: cooperative and no acute distress Orientation: alert, awake and oriented x3 HEENT Head: normal to inspection Ears: hearing grossly normal bilaterally Nose: external nose normal Eyes General: appearance normal, both eyes and all related structures Neck Neck: normal visual inspection Resp Effort & Inspection: normal respiratory effort Auscultation: clear to auscultation bilaterally, no rales, no rhonchi and no wheezes Cardio Rate: regular rate Rhythm: regular rhythm Heart Sounds: no gallops, no murmurs and no rubs GI Inspection: distended Palpation: firm, no masses and tender Auscultation: normal bowel sounds Neuro General: patient alert, patient awake and patient oriented x3 Extrem General: normal to inspection Other: Endorses beginnings of some feeling of gout in the right foot. Objective Pain Assessment Generalized Abdomen: Pain Description: Intermittent, Sharp and Stabbing Pain Intensity: 6 Intake & Output 24 hour I&O: Intake & Output 08/08/22 08/08/22 08/09/22 15:59 23:59 07:59 Intake Total 700 / 1150 350 / 1150 50 / 50 Output Total 3000 / 3000 Balance -2300 / -1850 350 / -1850 50 / 50 Weight 105.4 kg Labs 08/09/22 05:54 08/08/22 05:58 Laboratory Results - Last 48 hrs. 08/09/22 05:54: Corrected WBC 12.5 H, RBC 4.39, Hgb 13.2, Hct 40.3, MCV 91.8, MCH 30.1, MCHC 32.8, RDW 14.9 H, Plt Count 202, MPV 8.0 08/08/22 05:58: PHA Creatinine Clear 14.59, Sodium 139, Potassium 3.7, Chloride 103, Carbon Ycxvqjf11.8 L, Anion Gap 18.9 H, BUN 74 H, Creatinine 7.72 H, Est GFR (CKD-EPI) 8.141, Glucose 74, Calcium8.8, Total Bilirubin 0.6, AST 9 L, ALT 7, Alkaline Phosphatase 58, Total Protein 6.5, Albumin 3.6, Globulin 2.9, Albumin/Globulin Ratio 1.2 08/08/22 05:58: Corrected WBC 12.3 H, Uncorrected WBC Count 12.3 H, RBC 4.14, Hgb 12.4 L, Hct 37.7 L, MCV 91.2, MCH 29.8, MCHC 32.7, RDW 14.9 H, Plt Count 184, MPV 8.1, Neut % (Auto) 82.0, Lymph % (Auto) 9.2, Wallace % (Auto) 7.8, Eos % (Auto) 0.5, Baso % (Auto) 0.5, Nucleat RBC Rel Count 0.0, Neut # (Auto) 10.1 H, Lymph # (Auto) 1.1, Wallace # (Auto) 1.0 H, Eos # (Auto) 0.1, Baso # (Auto) 0.1 A&P - General Surgery Assessment/Plan (1) Diverticulitis: Code(s): K57.92 - Diverticulitis of intestine, part unspecified, without perforation or abscess without bleeding Status: Acute (2) Diverticulitis of intestine with perforation without abscess: Code(s): K57.80 - Diverticulitis of intestine, part unspecified, with perforation and abscess without bleeding Status: Acute (3) Dialysis patient: Code(s): Z99.2 - Dependence on renal dialysis Status: Acute Plan I have personally seen and examined the patient on this date of the encounter. I have performed thekey parts of the physical examination, as well as review ofthe history, and pertinent tests. I haveformulated the plan of care and made appropriate entries into the patient's chart. Mr Huerta is a 47 M admitted for diverticulitis. Previous history of diverticulitis 3 years ago, resolved with hospitalization and Antibiotics. He has no systemic symptoms, denies any fever or chills.States he has passed gas, no bowel movements. Pain is 10 out of 10 with movement. He states he believes his pain is continuing to improve, less stabbing than before, less discomfort while resting. Continue pain control Continue antibiotics No acute surgical need at this time, continue to monitor for worsening symptoms or failure of medical management. Documented By: Melquiades Ayala DO 08/09/22 06 50 Signed By: <Electronically signed by Melquiades Ayala DO> 08/09/22 0732 [facility] Work Phone: [phone] Progress note Author Redd [facility] August 09, 2022 5:12pmNote Date/TimeMay 2022 5:11pm[place] [address] Hospitalist Progress Note Signed Patient: Jordi Huerta MR#: [id number] : 1975 Acct:[id number] Age/Sex: 47 / M Adm Date: 3 Loc: 3T Room: [address] [place] [address] Type: ADM IN Attending Dr: Redd Payton MD Copies to: ~ Date of Service: 08/09/2022 Subjective Subjective Narrative: Patient is resting in bed. His pain is much improved. Tinnitus in the left lower quadrant, no rebound rigidity organomegaly noted Heart is regular Lungs minimal crackles in bases Neurological nonfocal Assessment and plan 1.Acute diverticulitis. Clinically improving Continue ceftriaxone and metronidazole. Diet per surgery. Pain control 2. Borderline hypoxemia. Encouraged incentive spirometry Q10min WA DVT prophylaxis heparin #3 end-stage renal disease managed by nephrology Exam Physical Exam Vital Signs: Temp Pulse Resp BP Pulse Ox O2 Del Method 98.2 F 75 20 101/63 92 L Room Air 08/09/22 12:10 08/09/22 12:10 08/09/22 12:10 08/09/22 12:10 08/09/22 12:10 08/09/22 12:10 Objective Lab Results 08/09/22 05:54 08/08/22 05:58 Meds Allergies and Active Meds Allergies amoxicillin Allergy (Verified 01/17/22 06:51) Nausea Active Meds: Active Medications Generic Name Dose Route Start Last Admin Trade Name Freq PRN Reason Stop Dose Admin Acetaminophen 1,000 mg 08/07/22 06:01 Acetaminophen 500 Mg Tablet PO 08/07/23 06:00 Q6HR PRN Pain Scale 1 - 3 or fever Allopurinol 100 mg 08/07/22 09:00 08/09/22 08:44 Allopurinol 100 Mg Tablet PO 08/07/23 08:59 100 mg DAILY FLAVIO Administration Amlodipine Besylate 10 mg 08/08/22 09:00 08/09/22 08:43 Amlodipine 10 Mg Tablet PO 08/08/23 08:59 10 mg DAILY FLAVIO Administration Calcitriol 0.5 mcg 08/07/22 09:00 08/09/22 08:43 Calcitriol 0.5 Mcg Capsule PO 08/07/23 08:59 0.5 mcg DAILY FLAVIO Administration Furosemide 40 mg 08/07/22 08:00 08/08/22 09:28 Furosemide 40 Mg Tablet PO 08/07/23 07:59 Not Given BID@0800,1600 FLAVIO Heparin Sodium (Porcine) 5,000 unit 08/07/22 09:00 08/09/22 08:44 Heparin 5,000 Unit/Ml Vial SUBCUT 08/07/23 08:59 5,000 unit Q12HR FLAVIO Administration Heparin Sodium (Porcine) 1,000 unit 08/08/22 09:00 08/08/22 10:16 Heparin 10,000 Unit/10 Ml Vial IV 08/08/23 08:59 1,000 unit PRN PRN Administration Dialysis Heparin Sodium (Porcine) 3,000 unit 08/08/22 09:00 08/08/22 10:17 Heparin 10,000 Unit/10 Ml Vial IV 08/08/23 08:59 3,000 unit PRN PRN Administration Dialysis Hydromorphone HCl 0.25 mg 08/07/22 06:01 08/07/22 06:54 Hydromorphone 0.5 Mg/0.5 Ml Syringe IV-PUSH 0.25 mg Q4H PRN Administration Pain Scale 8 - 10 Hydromorphone HCl 1 mg 08/07/22 10:51 08/09/22 16:45 Hydromorphone 1 Mg/Ml Syringe IV-PUSH 1 mg Q2H PRN Administration pain Metronidazole 500 mg in 100 mls @ 100 mls/hr 08/07/22 06:30 08/09/22 15:40 Flagyl IV Infused Q8H FLAVIO Infusion Ceftriaxone Sodium 2 gm in 50 mls @ 100 mls/hr 08/08/22 11:00 08/09/22 15:09 Rocephin IV Infused Q24H FLAVIO Infusion Sodium Chloride 1,000 mls @ 0 mls/hr 08/08/22 08:59 08/08/22 10:18 0.9% Sodium Chloride 1,000 Ml MISCELLANE 08/08/23 08:58 Infused .Q0M PRN Infusion Dialysis As Directed Melatonin 5 mg 08/07/22 06:01 08/08/22 22:00 Melatonin 5 Mg Tablet PO 08/07/23 06:00 5 mg QHS PRN Administration Insomnia Metoprolol Tartrate 25 mg 08/07/22 21:00 08/09/22 08:43 Metoprolol Tartrate 25 Mg Tablet PO 08/07/23 20:59 25 mg BID FLAVIO Administration Naloxone HCl 0.1 mg 08/07/22 06:01 Naloxone Hcl 0.4 Mg/Ml Vial IV-PUSH 08/07/23 06:00 Q2M PRN Opioid Reversal Ondansetron HCl 4 mg 08/07/22 06:01 Ondansetron 4 Mg/2 Ml Vial IV-PUSH 08/07/23 06:00 Q8H PRN Nausea And Vomiting Pantoprazole Sodium 40 mg 08/07/22 09:00 08/09/22 08:43 Pantoprazole 40 Mg Tablet.Dr PO 08/07/23 08:59 40 mg DAILY FLAVIO Administration Potassium Chloride 10 meq 08/07/22 09:00 08/09/22 08:43 Potassium Chloride Er 10 Meq Capsule.Er PO 08/07/23 08:59 10 meq DAILY FLAVIO Administration Pramipexole Dihydrochloride 0.25 mg 08/07/22 22:00 08/08/22 22:01 Pramipexole 0.25 Mg Tablet PO 08/07/23 21:59 0.25 mg QHS FLAVIO Administration Prednisone 40 mg 08/08/22 22:25 08/09/22 08:43 Prednisone 20 Mg Tablet PO 08/11/22 09:01 40 mg DAILY FLAVIO Administration Sertraline HCl 50 mg 08/07/22 09:00 08/09/22 08:43 Sertraline 50 Mg Tablet PO 08/07/23 08:59 50 mg QAM FLAVIO Administration Sevelamer Carbonate 800 mg 08/07/22 08:00 08/08/22 11:36 Sevelamer Carbonate 800 Mg Tablet PO 08/07/23 07:59 Not Given TID.WITH.MEALS FLAVIO Sodium Chloride 10 ml 08/07/22 13:33 08/09/22 16:46 Sodium Chloride 0.9 % 10 Ml Syringe IV-PUSH 08/07/23 13:32 10 ml PRN PRN Administration Flush Sodium Chloride 0 ml 08/08/22 08:59 08/08/22 10:16 Sodium Chloride 0.9 % 10 Ml Syringe IV-PUSH 08/08/23 08:58 10 ml PRN PRN Administration Flush Valsartan 320 mg 08/07/22 09:00 08/09/22 08:43 Valsartan 320 Mg Tablet PO 08/07/23 08:59 320 mg DAILY FLAVIO Administration Documented By: Redd Payton MD 08/09/221709 Signed By: <Electronically signed by Redd Payton MD> 08/09/221711 [facility] Work Phone: [phone]) 826-951105-10-2023 Progress note Author Fredy Bryant [facility] August 09, 2022 12:16pmNote Date/TimeMay 2022 12:16pm[place] [address] Nephrology Progress Note Signed Patient: Jordi Huerta MR#: [id number] : 1975 Acct:[id number] Age/Sex: 47 / M Adm Date: 3 Loc: Room: [address] [place] [address] Type: ADM IN Attending Dr: Redd Payton MD Copies to: ~ Date of Service: 08/09/2022 Subjective Subjective Narrative: This is a 47-year-old male with medical history of Rhodes's esophagus, arthritis, gout, hypertension, polycystic kidney disease, sleep apnea, ESRD and diverticulitis was presented to the [facility] for left lower quadrant pain. Patient had a CAT scan abdomen pelvis done in the emergency room which showed numerous simple and complex cysts on his kidneys, multiple diverticula inthe descending and sigmoid colon.? Most notable abnormal thickening of the proximal sigmoid with free air indicating microperforations.? No abscess or freefluid noted. Patient has a Palutsis focus and had diverticulitis in the past. He follows with Dr. Ledesma and scheduled to see me in August. Patient was started on IV antibiotic and was transferred to [facility] due tohis ESRD. He has a history of ESRD due to polycystic kidney disease and currently goes to the [facility] on TTS schedule. His last hemodialysis was Sunday. Currently has AV fistula as a dialysis access. Nephrologyis consulted for ESRD management during the hospital stay. Interval history Patient was seen and examined in his room. He reported that his abdominal pain is slightly better today. He was allowed to have ice chips by the general surgery. Denies any nausea vomiting shortness of breath chest pain palpitation. Exam Physical Exam Vital Signs: Temp Pulse Resp BP Pulse Ox O2 Del Method 98.4 F 86 20 92/56 L 93 L Room Air 08/08/22 23:24 08/08/22 19:41 08/08/22 23:24 08/08/22 23:24 08/08/22 23:24 08/09/22 08:00 Narrative: General: Appears comfortable and not in distress Heart: S1-S2, no rub Lung: Bilateral air entry, no wheezing or crackles Abdomen: Soft, positive bowel sounds Extremities: No edema, no cyanosis Head: Atraumatic, normocephalic Ear: No gross hearing Deficit or external ear redness Eyes: No pallor or redness Neck: No JVD or visible mass Skin: No rashes or bruises SPA HOST: Awake,Alert, following simple command Musculoskeletal: No joint swelling or limitation of movement Psychiatric: Cooperative, normal mood and affect Objective Intake and Output I&O: Intake & Output 08/06/22 08/07/22 08/08/22 08/09/22 23:59 23:59 23:59 23:59 Intake Total 1410 / 1410 1150 / 1150 50 / 50 Output Total 3000 / 3000 Balance 1410 / 1410 -1850 / -1850 50 / 50 Weight 105.5 kg 107.3 kg 105.4 kg Meds and Allergies Meds: Active Medications Acetaminophen (Acetaminophen 500 Mg Tablet) 1,000 mg PO Q6HR PRN PRN Reason: Pain Scale 1 - 3 or fever Stop: 08/07/23 06:00 Allopurinol (Allopurinol 100 Mg Tablet) 100 mg PO DAILY FLAVIO Stop: 08/07/23 08:59 Last Admin: 08/09/22 08:44 Dose: 100 mg Amlodipine Besylate (Amlodipine 10 Mg Tablet) 10 mg PO DAILY FLAVIO Stop: 08/08/23 08:59 Last Admin: 08/09/22 08:43 Dose: 10 mg Calcitriol (Calcitriol 0.5 Mcg Capsule) 0.5 mcg PO DAILY FLAVIO Stop: 08/07/23 08:59 Last Admin: 08/09/22 08:43 Dose: 0.5 mcg Furosemide (Furosemide 40 Mg Tablet) 40 mg PO BID@0800,1600 FLAVIO Stop: 08/07/23 07:59 Last Admin: 08/08/22 09:28 Dose: Not Given Heparin Sodium (Porcine) (Heparin 5,000 Unit/Ml Vial) 5,000 unit SUBCUT Q12HR FLAVIO Stop: 08/07/23 08:59 Last Admin: 08/09/22 08:44 Dose: 5,000 unit Heparin Sodium (Porcine) (Heparin 10,000 Unit/10 Ml Vial) 1,000 unit IV PRN PRN PRN Reason: Dialysis Stop: 08/08/23 08:59 Last Admin: 08/08/22 10:16 Dose: 1,000 unit Heparin Sodium (Porcine) (Heparin 10,000 Unit/10 Ml Vial) 3,000 unit IV PRN PRN PRN Reason: Dialysis Stop: 08/08/23 08:59 Last Admin: 08/08/22 10:17 Dose: 3,000 unit Hydromorphone HCl (Hydromorphone 0.5 Mg/0.5 Ml Syringe) 0.25 mg IV-PUSH Q4H PRN PRN Reason: Pain Scale 8 - 10 Last Admin: 08/07/22 06:54 Dose: 0.25 mg Hydromorphone HCl (Hydromorphone 1 Mg/Ml Syringe) 1 mg IV-PUSH Q2H PRN PRN Reason: pain Last Admin: 08/09/22 08:44 Dose: 1 mg Metronidazole (Flagyl) 500 mg in 100 mls @ 100 mls/hr IV Q8H [facility] Last Admin: 08/09/22 06:05 Dose: 100 mls/hr Ceftriaxone Sodium (Rocephin) 2 gm in 50 mls @ 100 mls/hr IV Q24H [facility] Last Infusion: 08/08/22 14:26 Dose: Infused Sodium Chloride (0.9% Sodium Chloride 1,000 Ml) 1,000 mls @ 0 mls/hr MISCELLANE.Q0M PRN PRN Reason: Dialysis Stop: 08/08/23 08:58 Last Infusion: 08/08/22 10:18 Dose: Infused Melatonin (Melatonin 5 Mg Tablet) 5 mg PO QHS PRN PRN Reason: Insomnia Stop: 08/07/23 06:00 Last Admin: 08/08/22 22:00 Dose: 5 mg Metoprolol Tartrate (Metoprolol Tartrate 25 Mg Tablet) 25 mg PO BID [facility] Stop: 08/07/23 20:59 Last Admin: 08/09/22 08:43 Dose: 25 mg Naloxone HCl (Naloxone Hcl 0.4 Mg/Ml Vial) 0.1 mg IV-PUSH Q2M PRN PRN Reason: Opioid Reversal Stop: 08/07/23 06:00 Ondansetron HCl (Ondansetron 4 Mg/2 Ml Vial) 4 mg IV-PUSH Q8H PRN PRN Reason: Nausea And Vomiting Stop: 08/07/23 06:00 Pantoprazole Sodium (Pantoprazole 40 Mg Tablet.Dr) 40 mg PO DAILY FLAVIO Stop: 08/07/23 08:59 Last Admin: 08/09/22 08:43 Dose: 40 mg Potassium Chloride (Potassium Chloride Er 10 Meq Capsule.Er) 10 meq PO DAILY FLAVIO Stop: 08/07/23 08:59 Last Admin: 08/09/22 08:43 Dose: 10 meq Pramipexole Dihydrochloride (Pramipexole 0.25 Mg Tablet) 0.25 mg PO QHS FLAVIO Stop: 08/07/23 21:59 Last Admin: 08/08/22 22:01 Dose: 0.25 mg Prednisone (Prednisone 20 Mg Tablet) 40 mg PO DAILY FLAVIO Stop: 08/11/22 09:01 Last Admin: 08/09/22 08:43 Dose: 40 mg Sertraline HCl (Sertraline 50 Mg Tablet) 50 mg PO QAM FLAVIO Stop: 08/07/23 08:59 Last Admin: 08/09/22 08:43 Dose: 50 mg Sevelamer Carbonate (Sevelamer Carbonate 800 Mg Tablet) 800 mg PO TID.WITH.MEALS FLAVIO Stop: 08/07/23 07:59 Last Admin: 08/08/22 11:36 Dose: Not Given Sodium Chloride (Sodium Chloride 0.9 % 10 Ml Syringe) 10 ml IV-PUSH PRN PRN PRN Reason: Flush Stop: 08/07/23 13:32 Last Admin: 08/09/22 06:05 Dose: 10 ml Sodium Chloride (Sodium Chloride 0.9 % 10 Ml Syringe) 0 ml IV-PUSH PRN PRN PRN Reason: Flush Stop: 08/08/23 08:58 Last Admin: 08/08/22 10:16 Dose: 10 ml Valsartan (Valsartan 320 Mg Tablet) 320 mg PO DAILY FLAVIO Stop: 08/07/23 08:59 Last Admin: 08/09/22 08:43 Dose: 320 mg Allergies amoxicillin Allergy (Verified 01/17/22 06:51) Nausea Results Labs 08/09/22 05:54 08/08/22 05:58 Radiology Impressions Impressions - last 24 hours: Any impression(s) listed above is documentation that was entered by the reading physician into a diagnostic report(s) for Jordi Huerta. I have reviewed the report(s) and am incorporating any findings in the treatment plan of this patient where applicable. A&P - Nephrology Assessment/Plan (1) Diverticulitis of intestine with perforation without abscess: Plan: He presented abnormal pain and was found to have diverticulitis. Currently on IV antibiotics.General surgery has been consulted. (2) ESRD (end stage renal disease) on dialysis: Plan: He is a ESRD due to polycystic kidney disease. Currently goes to the [facility] on TTS schedule (3) Benign hypertension with end-stage renal disease: Plan: Blood count he takes multiple antihypertensive medication including amlodipine, furosemide, metoprolol, valsartan?hydrochlorothiazide (4) Secondary hyperparathyroidism: Plan: He has a secondary hyperparathyroidism currently takes calcitriol, sevelamer andSensipar (5) Polycystic kidney disease: Plan: Patient has a polycystic kidney disease runs in the family. Plan * No need for dialysis today. Next dialysis will be tomorrow as per schedule. * Continue IV antibiotics for diverticulitis. Pharmacy to dose medication. * Continue home dose of the antihypertensive medication including amlodipine, metoprolol, valsartan * Stop hydrochlorothiazide and sodium bicarbonate upon discharge. Patient should not be taking these medications. * Continue home dose of the calcitriol and Cinacalcet. * Will hold sevelamer as patient is currently NPO. * Check renal function daily Documented By: Fredy Bryant MD 08/09/22 121 Signed By: <Electronically signed by Fredy Bryant MD> 08/09/22 1216 [facility] Work Phone: [phone]) 343-700505-09-2023 Progress note Author Melquiades Ayala [facility] August 08, 2022 2:21pmNote Date/TimeMay 2022 7:35[place] [id number] General Surgery Progress Note Signed Patient: Jordi Huerta MR#: [id number] : 1975 Acct:[id number] Age/Sex: 47 / M Adm Date: 3 Loc: 3T Room: [address] [place] [address] Type: ADM IN Attending Dr: Redd Payton MD Copies to: ~ Date of Service: 08/08/2022 Subjective Subjective Patient reports: still having pain, flatus, no bowel movement and afebrile HPI: Patient states he is feeling a little better. He has passed more flatus today, but not had a bowel movement. He denies any nausea or vomiting. He is tolerating ice chips. Allergies & Medications Medications and Allergies Allergies amoxicillin Allergy (Verified 01/17/22 06:51) Nausea Home Medications amlodipine 10 mg tablet 10 mg PO QAM htn 03/25/20 [History Confirmed 08/07/22] metoprolol tartrate 25 mg tablet 25 mg PO QHS htn 03/25/20 [History Confirmed 08/07/22] pantoprazole 40 mg tablet,delayed release 40 mg PO QAM gerd 03/25/20 [History Confirmed 08/07/22] potassium chloride 10 mEq capsule,extended release 10 meq PO DAILY 03/25/20 [History Confirmed 08/07/22] valsartan 320 mg-hydrochlorothiazide 25 mg tablet 1 tab PO QAM htn 03/25/20 [History Confirmed 08/07/22] calcitriol 0.25 mcg capsule 0.5 mcg PO DAILY kidneys 10/06/21 [History Confirmed 08/07/22] furosemide 40 mg tablet 40 mg PO BID kidneys 10/06/21 [History Confirmed 08/07/22] sertraline 50 mg tablet 50 mg PO QAM anxiety 10/06/21 [History Confirmed 08/07/22] allopurinol 100 mg tablet 100 mg PO DAILY 01/09/22 [History Confirmed 08/07/22] cinacalcet 30 mg tablet (Sensipar) 30 mg PO DAILY 01/09/22 [History Confirmed 08/07/22] sodium bicarbonate 650 mg tablet 650 mg PO BID 01/09/22 [History Confirmed 08/07/22] pramipexole 0.25 mg tablet 0.25 mg PO QHS 08/07/22 [History Confirmed 08/07/22] sevelamer carbonate 800 mg tablet 800 mg PO TIDWM 08/07/22 [History Confirmed 08/07/22] Active Medications Acetaminophen (Acetaminophen 500 Mg Tablet) 1,000 mg PO Q6HR PRN PRN Reason: Pain Scale 1 - 3 or fever Stop: 08/07/23 06:00 Allopurinol (Allopurinol 100 Mg Tablet) 100 mg PO DAILY FLAVIO Stop: 08/07/23 08:59 Last Admin: 08/07/22 08:37 Dose: 100 mg Amlodipine Besylate (Amlodipine 10 Mg Tablet) 10 mg PO DAILY FLAVIO Stop: 08/08/23 08:59 Calcitriol (Calcitriol 0.5 Mcg Capsule) 0.5 mcg PO DAILY FLAVIO Stop: 08/07/23 08:59 Last Admin: 08/07/22 11:31 Dose: 0.5 mcg Furosemide (Furosemide 40 Mg Tablet) 40 mg PO BID@0800,1600 [facility] Stop: 08/07/23 07:59 Last Admin: 08/07/22 16:10 Dose: 40 mg Heparin Sodium (Porcine) (Heparin 5,000 Unit/Ml Vial) 5,000 unit SUBCUT Q12HR [facility] Stop: 08/07/23 08:59 Last Admin: 08/07/22 22:21 Dose: 5,000 unit Hydromorphone HCl (Hydromorphone 0.5 Mg/0.5 Ml Syringe) 0.25 mg IV-PUSH Q4H PRN PRN Reason: Pain Scale 8 - 10 Last Admin: 08/07/22 06:54 Dose: 0.25 mg Hydromorphone HCl (Hydromorphone 1 Mg/Ml Syringe) 1 mg IV-PUSH Q2H PRN PRN Reason: pain Last Admin: 08/08/22 05:23 Dose: 1 mg Sodium Chloride (0.9% Sodium Chloride 1,000 Ml) 1,000 mls @ 70 mls/hr IV .[id number] [facility] Stop: 08/07/23 06:14 Last Admin: 08/07/22 18:24 Dose: 100 mls/hr Metronidazole (Flagyl) 500 mg in 100 mls @ 100 mls/hr IV Q8H [facility] Last Admin: 08/08/22 05:30 Dose: 100 mls/hr Ceftriaxone Sodium (Rocephin) 2 gm in 50 mls @ 100 mls/hr IV Q24H [facility] Melatonin (Melatonin 5 Mg Tablet) 5 mg PO QHS PRN PRN Reason: Insomnia Stop: 08/07/23 06:00 Last Admin: 08/07/22 22:24 Dose: 5 mg Metoprolol Tartrate (Metoprolol Tartrate 25 Mg Tablet) 25 mg PO BID [facility]LA[facility]IO Stop: 08/07/23 20:59 Last Admin: 08/07/22 22:23 Dose: 25 mg Naloxone HCl (Naloxone Hcl 0.4 Mg/Ml Vial) 0.1 mg IV-PUSH Q2M PRN PRN Reason: Opioid Reversal Stop: 08/07/23 06:00 Ondansetron HCl (Ondansetron 4 Mg/2 Ml Vial) 4 mg IV-PUSH Q8H PRN PRN Reason: Nausea And Vomiting Stop: 08/07/23 06:00 Pantoprazole Sodium (Pantoprazole 40 Mg Tablet.Dr) 40 mg PO DAILY FLAVIO Stop: 08/07/23 08:59 Last Admin: 08/07/22 08:36 Dose: 40 mg Potassium Chloride (Potassium Chloride Er 10 Meq Capsule.Er) 10 meq PO DAILY FLA[facility]IO Stop: 08/07/23 08:59 Last Admin: 08/07/22 08:36 Dose: 10 meq Pramipexole Dihydrochloride (Pramipexole 0.25 Mg Tablet) 0.25 mg PO QHS [facility]LA[facility]IO Stop: 08/07/23 21:59 Last Admin: 08/07/22 22:23 Dose: 0.25 mg Sertraline HCl (Sertraline 50 Mg Tablet) 50 mg PO QAM [facility]LA[facility]IO Stop: 08/07/23 08:59 Last Admin: 08/07/22 08:37 Dose: 50 mg Sevelamer Carbonate (Sevelamer Carbonate 800 Mg Tablet) 800 mg PO TID.WITH.MEALS FLAVIO Stop: 08/07/23 07:59 Last Admin: 08/07/22 16:10 Dose: 800 mg Sodium Chloride (Sodium Chloride 0.9 % 10 Ml Syringe) 10 ml IV-PUSH PRN PRN PRN Reason: Flush Stop: 08/07/23 13:32 Last Admin: 08/07/22 20:24 Dose: 10 ml Valsartan (Valsartan 320 Mg Tablet) 320 mg PO DAILY FLAVIO Stop: 08/07/23 08:59 Last Admin: 08/07/22 08:37 Dose: 320 mg Exam Physical Exam Vital Signs: Temp Pulse Resp BP Pulse Ox O2 Del Method 97.9 F 85 18 146/77 H 95 Room Air 08/07/22 20:06 08/08/22 04:00 08/08/22 04:00 08/08/22 04:00 08/08/22 04:00 08/08/22 04:00 Narrative: Patient resting in bed, nontoxic-appearing, conversant and pleasant. Appears insomewhat discomfort,reluctant shift or move. Patient denies any pain while at rest but endorses pain with movement. Extremely tender to palpation in the lower left quadrant. Abdomen is still somewhat firm and distended.No tenderness to palpation in the right side. Normal bowel sounds all 4 quadrants,no palpable masses upon exam. Heart regular rate and rhythm. Lungs clear to auscultation bilaterally. Const General: cooperative and no acute distress Orientation: alert, awake and oriented x3 HEENT Head: normal to inspection Ears: hearing grossly normal bilaterally Nose: external nose normal Face and sinus: normal facial exam Eyes General: appearance normal, both eyes and all related structures Neck Neck: normal visual inspection Resp Effort & Inspection: normal respiratory effort and no respiratory distress Auscultation: clear to auscultation bilaterally, no rales, no rhonchi and no wheezes Cardio Rate: regular rate Rhythm: regular rhythm Heart Sounds: no murmurs and no rubs GI Inspection: distended Palpation: firm and tender Auscultation: normal bowel sounds Neuro General: patient alert, patient awake and patient oriented x3 Extrem General: normal to inspection Objective Pain Assessment Generalized Abdomen: Pain Description: Intermittent, Sharp, Aching and Stabbing Pain Intensity: 10 Intake & Output 24 hour I&O: Intake & Output 08/07/22 08/07/22 08/08/22 15:59 23:59 07:59 Intake Total 150 / 1410 1160 / 1410 0 / 0 Balance 150 / 1410 1160 / 1410 0 / 0 Weight 107.3 kg Labs 08/08/22 05:58 08/08/22 05:58 Laboratory Results - Last 48 hrs. 08/08/22 05:58: PHA Creatinine Clear 14.59, Sodium 139, Potassium 3.7, Chloride 103, Carbon Fquwvnl82.8 L, Anion Gap 18.9 H, BUN 74 H, Creatinine 7.72 H, Est GFR (CKD-EPI) 8.141, Glucose 74, Calcium8.8, Total Bilirubin 0.6, AST 9 L, ALT 7, Alkaline Phosphatase 58, Total Protein 6.5, Albumin 3.6, Globulin 2.9, Albumin/Globulin Ratio 1.2 08/08/22 05:58: Corrected WBC 12.3 H, Uncorrected WBC Count 12.3 H, RBC 4.14, Hgb 12.4 L, Hct 37.7 L, MCV 91.2, MCH 29.8, MCHC 32.7, RDW 14.9 H, Plt Count 184, MPV 8.1, Neut % (Auto) 82.0, Lymph % (Auto) 9.2, Wallace % (Auto) 7.8, Eos % (Auto) 0.5, Baso % (Auto) 0.5, Nucleat RBC Rel Count 0.0, Neut # (Auto) 10.1 H, Lymph # (Auto) 1.1, Wallace # (Auto) 1.0 H, Eos # (Auto) 0.1, Baso # (Auto) 0.1 A&P - General Surgery Assessment/Plan (1) Diverticulitis of intestine with perforation without abscess: Code(s): K57.80 - Diverticulitis of intestine, part unspecified, with perforation and abscess without bleeding Status: Acute Plan I have personally seen and examined the patient on this date of the encounter. I have performed thekey parts of the physical examination, as well as review ofthe history, and pertinent tests. I haveformulated the plan of care and made appropriate entries into the patient's chart. Mr. Huerta is a 47-year-old male who was admitted to the medical service for acute diverticulitis. He believes he is continuing to improve, he states he hasless stabbing sensation when his pain occurs. He continues to have pain with movement 10 out of 10. No pain when at rest. He endorses adequate control of pain while on medication. He is ambulating. He is urinating without difficulty. He is ableto pass gas but has not had a bowel movement. He is scheduled to have dialysis today per hospitalist. I provided him with a diet of ice pops, ice chips, sherbet and sips of water Continue antibiotics monitor for improvement. Continue pain control. No acute surgical abdomen at this time, continue to monitor for worsening symptoms or failure of medical management. Documented By: Melquiades Ayala DO 08/08/2210 22 Signed By: <Electronically signed by Melquiades Ayala DO> 08/08/22 1421 [facility] Work Phone: [phone] 396-110205-09-2023 Progress note Author Fredy Bryant [facility] August 08, 2022 12:05pmNote Date/TimeMay 2022 11:52[place], [place] [address] Nephrology Progress Note Signed Patient: Jordi Huerta MR#: [id number] : 1975 Acct:[id number] Age/Sex: 47 / M Adm Date: 3 Loc: Room: [address] [place] [address] Type: ADM IN Attending Dr: Redd Payton MD Copies to: ~ Date of Service: 08/08/2022 Subjective Subjective Narrative: This is a 47-year-old male with medical history of Rhodes's esophagus, arthritis, gout, hypertension, polycystic kidney disease, sleep apnea, ESRD and diverticulitis was presented to the [facility] for left lower quadrant pain. Patient had a CAT scan abdomen pelvis done in the emergency room which showed numerous simple and complex cysts on his kidneys, multiple diverticula inthe descending and sigmoid colon.? Most notable abnormal thickening of the proximal sigmoid with free air indicating microperforations.? No abscess or freefluid noted. Patient has a Palutsis focus and had diverticulitis in the past. He follows with Dr. Ledesma and scheduled to see me in August. Patient was started on IV antibiotic and was transferred to [facility] due tohis ESRD. He has a history of ESRD due to polycystic kidney disease and currently goes to the [facility] on TTS schedule. His last hemodialysis was Sunday. Currently has AV fistula as a dialysis access. Nephrologyis consulted for ESRD management during the hospital stay. Interval history Patient was seen and examined bedside during hemodialysis. He was seen by the general surgery stillreported to have abdominal pain but no surgical intervention was recommended. Denies any nausea vomiting shortness of breath chest pain palpitation. Exam Physical Exam Vital Signs: Temp Pulse Resp BP Pulse Ox O2 Del Method 99.1 F H 80 18 117/76 93 L Room Air 08/08/22 09:15 08/08/22 11:30 08/08/22 09:15 08/08/22 11:30 08/08/22 09:15 08/08/22 09:15 Narrative: General: Appears comfortable and not in distress Heart: S1-S2, no rub Lung: Bilateral air entry, no wheezing or crackles Abdomen: Soft, positive bowel sounds Extremities: No edema, no cyanosis Head: Atraumatic, normocephalic Ear: No gross hearing Deficit or external ear redness Eyes: No pallor or redness Neck: No JVD or visible mass Skin: No rashes or bruises SPA HOST: Awake,Alert, following simple command Musculoskeletal: No joint swelling or limitation of movement Psychiatric: Cooperative, normal mood and affect Objective Intake and Output I&O: Intake & Output 08/05/22 08/06/22 08/07/22 08/08/22 23:59 23:59 23:59 23:59 Intake Total 1410 / 1410 500 / 500 Balance 1410 / 1410 500 / 500 Weight 105.5 kg 107.3 kg Meds and Allergies Meds: Active Medications Acetaminophen (Acetaminophen 500 Mg Tablet) 1,000 mg PO Q6HR PRN PRN Reason: Pain Scale 1 - 3 or fever Stop: 08/07/23 06:00 Allopurinol (Allopurinol 100 Mg Tablet) 100 mg PO DAILY [facility] Stop: 08/07/23 08:59 Last Admin: 08/07/22 08:37 Dose: 100 mg Amlodipine Besylate (Amlodipine 10 Mg Tablet) 10 mg PO DAILY [facility] Stop: 08/08/23 08:59 Calcitriol (Calcitriol 0.5 Mcg Capsule) 0.5 mcg PO DAILY [facility] Stop: 08/07/23 08:59 Last Admin: 08/07/22 11:31 Dose: 0.5 mcg Furosemide (Furosemide 40 Mg Tablet) 40 mg PO BID@0800,1600 [facility] Stop: 08/07/23 07:59 Last Admin: 08/08/22 09:28 Dose: Not Given Heparin Sodium (Porcine) (Heparin 5,000 Unit/Ml Vial) 5,000 unit SUBCUT Q12HR [facility] Stop: 08/07/23 08:59 Last Admin: 08/08/22 09:28 Dose: Not Given Heparin Sodium (Porcine) (Heparin 10,000 Unit/10 Ml Vial) 1,000 unit IV PRN PRN PRN Reason: Dialysis Stop: 08/08/23 08:59 Last Admin: 08/08/22 10:16 Dose: 1,000 unit Heparin Sodium (Porcine) (Heparin 10,000 Unit/10 Ml Vial) 3,000 unit IV PRN PRN PRN Reason: Dialysis Stop: 08/08/23 08:59 Last Admin: 08/08/22 10:17 Dose: 3,000 unit Hydromorphone HCl (Hydromorphone 0.5 Mg/0.5 Ml Syringe) 0.25 mg IV-PUSH Q4H PRN PRN Reason: Pain Scale 8 - 10 Last Admin: 08/07/22 06:54 Dose: 0.25 mg Hydromorphone HCl (Hydromorphone 1 Mg/Ml Syringe) 1 mg IV-PUSH Q2H PRN PRN Reason: pain Last Admin: 08/08/22 10:59 Dose: 1 mg Metronidazole (Flagyl) 500 mg in 100 mls @ 100 mls/hr IV Q8H [facility] Last Admin: 08/08/22 05:30 Dose: 100 mls/hr Ceftriaxone Sodium (Rocephin) 2 gm in 50 mls @ 100 mls/hr IV Q24H [facility] Sodium Chloride (0.9% Sodium Chloride 1,000 Ml) 1,000 mls @ 0 mls/hr MISCELLANE.Q0M PRN PRN Reason: Dialysis Stop: 08/08/23 08:58 Last Infusion: 08/08/22 10:18 Dose: Infused Melatonin (Melatonin 5 Mg Tablet) 5 mg PO QHS PRN PRN Reason: Insomnia Stop: 08/07/23 06:00 Last Admin: 08/07/22 22:24 Dose: 5 mg Metoprolol Tartrate (Metoprolol Tartrate 25 Mg Tablet) 25 mg PO BID [facility] Stop: 08/07/23 20:59 Last Admin: 08/08/22 09:28 Dose: Not Given Naloxone HCl (Naloxone Hcl 0.4 Mg/Ml Vial) 0.1 mg IV-PUSH Q2M PRN PRN Reason: Opioid Reversal Stop: 08/07/23 06:00 Ondansetron HCl (Ondansetron 4 Mg/2 Ml Vial) 4 mg IV-PUSH Q8H PRN PRN Reason: Nausea And Vomiting Stop: 08/07/23 06:00 Pantoprazole Sodium (Pantoprazole 40 Mg Tablet.Dr) 40 mg PO DAILY [facility] Stop: 08/07/23 08:59 Last Admin: 08/07/22 08:36 Dose: 40 mg Potassium Chloride (Potassium Chloride Er 10 Meq Capsule.Er) 10 meq PO DAILY [facility] Stop: 08/07/23 08:59 Last Admin: 08/07/22 08:36 Dose: 10 meq Pramipexole Dihydrochloride (Pramipexole 0.25 Mg Tablet) 0.25 mg PO QHS [facility] Stop: 08/07/23 21:59 Last Admin: 08/07/22 22:23 Dose: 0.25 mg Sertraline HCl (Sertraline 50 Mg Tablet) 50 mg PO QAM [facility] Stop: 08/07/23 08:59 Last Admin: 08/07/22 08:37 Dose: 50 mg Sevelamer Carbonate (Sevelamer Carbonate 800 Mg Tablet) 800 mg PO TID.WITH.MEALS [facility] Stop: 08/07/23 07:59 Last Admin: 08/08/22 11:36 Dose: Not Given Sodium Chloride (Sodium Chloride 0.9 % 10 Ml Syringe) 10 ml IV-PUSH PRN PRN PRN Reason: Flush Stop: 08/07/23 13:32 Last Admin: 08/08/22 07:40 Dose: 10 ml Sodium Chloride (Sodium Chloride 0.9 % 10 Ml Syringe) 0 ml IV-PUSH PRN PRN PRN Reason: Flush Stop: 08/08/23 08:58 Last Admin: 08/08/22 10:16 Dose: 10 ml Valsartan (Valsartan 320 Mg Tablet) 320 mg PO DAILY [facility] Stop: 08/07/23 08:59 Last Admin: 08/07/22 08:37 Dose: 320 mg Allergies amoxicillin Allergy (Verified 01/17/22 06:51) Nausea Results Labs 08/08/22 05:58 08/08/22 05:58 Labs: 08/08/22 05:58 BUN 74 H Creatinine 7.72 H Albumin 3.6 Radiology Impressions Impressions - last 24 hours: Any impression(s) listed above is documentation that was entered by the reading physician into a diagnostic report(s) for Jordi Huerta. I have reviewed the report(s) and am incorporating any findings in the treatment plan of this patient where applicable. A&P - Nephrology Assessment/Plan (1) Diverticulitis of intestine with perforation without abscess: Plan: He presented abnormal pain and was found to have diverticulitis. Currently on IV antibiotics.General surgery has been consulted. (2) ESRD (end stage renal disease) on dialysis: Plan: He is a ESRD due to polycystic kidney disease. Currently goes to the [facility] on TTS schedule (3) Benign hypertension with end-stage renal disease: Plan: Blood count he takes multiple antihypertensive medication including amlodipine, furosemide, metoprolol, valsartan?hydrochlorothiazide (4) Secondary hyperparathyroidism: Plan: He has a secondary hyperparathyroidism currently takes calcitriol, sevelamer andSensipar (5) Polycystic kidney disease: Plan: Patient has a polycystic kidney disease runs in the family. Plan * Hemodialysis today as ordered * Will stop the IV fluid and hold Lasix. * Continue IV antibiotics for diverticulitis. Pharmacy to dose medication. * Continue home dose of the antihypertensive medication including amlodipine, metoprolol, valsartan * Stop hydrochlorothiazide and sodium bicarbonate upon discharge. Patient should not be taking these medications. * Continue home dose of the calcitriol and Cinacalcet. * Will hold sevelamer as patient is currently NPO. * Check renal function daily Documented By: Fredy Bryant MD 08/08/22 1148 Signed By: <Electronically signed by Fredy Bryant MD> 08/08/22 1201 [facility] Work Phone: [phone] 301-220705-08-2023 Progress note Author Redd Payton [facility] August 07, 2022 2:47pmNote Date/TimeMay 2022 2:48[place] [address] Hospitalist Progress Note Signed Patient: Jordi Huerta MR#: [id number] : 1975 Acct:[id number] Age/Sex: 47 / M Adm Date: 3 Loc: 3T Room: [address] [place] [address] Type: ADM IN Attending Dr: Redd Payton MD Copies to: ~ Date of Service: 08/07/2022 Subjective Subjective Narrative: Patient is resting in bed. Pain is controlled with IV Dilaudid. Tenderness in the left lower quadrant, no rebound rigidity organomegaly Heart regular Lungs clear Neurological nonfocal Assessment and plan 1.Acute diverticulitis. Continue treatment with ceftriaxone and metronidazole as ordered. Seen by surgery. Conservative management advised. Remains n.p.o. for today. IV fluids. Pain medications. DVT prophylaxis 2. End-stage renal disease managed by nephrology Exam Physical Exam Vital Signs: Temp Pulse Resp BP Pulse Ox O2 Del Method 98.2 F 88 16 110/68 92 L Room Air 08/07/22 11:38 08/07/22 07:32 08/07/22 11:38 08/07/22 11:38 08/07/22 11:38 08/07/22 11:38 Meds Allergies and Active Meds Allergies amoxicillin Allergy (Verified 01/17/22 06:51) Nausea Active Meds: Active Medications Generic Name Dose Route Start Last Admin Trade Name Freq PRN Reason Stop Dose Admin Acetaminophen 1,000 mg 08/07/22 06:01 Acetaminophen 500 Mg Tablet PO 08/07/23 06:00 Q6HR PRN Pain Scale 1 - 3 or fever Allopurinol 100 mg 08/07/22 09:00 08/07/22 08:37 Allopurinol 100 Mg Tablet PO 08/07/23 08:59 100 mg DAILY [facility] Administration Amlodipine Besylate 10 mg 08/08/22 09:00 Amlodipine 10 Mg Tablet PO 08/08/23 08:59 DAILY [facility] Calcitriol 0.5 mcg 08/07/22 09:00 08/07/22 11:31 Calcitriol 0.5 Mcg Capsule PO 08/07/23 08:59 0.5 mcg DAILY [facility] Administration Furosemide 40 mg 08/07/22 08:00 08/07/22 08:36 Furosemide 40 Mg Tablet PO 08/07/23 07:59 40 mg BID@0800,1600 [facility] Administration Heparin Sodium (Porcine) 5,000 unit 08/07/22 09:00 08/07/22 08:37 Heparin 5,000 Unit/Ml Vial SUBCUT 08/07/23 08:59 5,000 unit Q12HR [facility] Administration Hydromorphone HCl 0.25 mg 08/07/22 06:01 08/07/22 06:54 Hydromorphone 0.5 Mg/0.5 Ml Syringe IV-PUSH 0.25 mg Q4H PRN Administration Pain Scale 8 - 10 Hydromorphone HCl 1 mg 08/07/22 10:51 08/07/22 14:07 Hydromorphone 1 Mg/Ml Syringe IV-PUSH 1 mg Q2H PRN Administration pain Sodium Chloride 1,000 mls @ 100 mls/hr 08/07/22 06:15 08/07/22 06:45 0.9% Sodium Chloride 1,000 Ml IV 08/07/23 06:14 100 mls/hr .Q10H [facility] Administration Metronidazole 500 mg in 100 mls @ 100 mls/hr 08/07/22 06:30 08/07/22 14:10 Flagyl IV 100 mls/hr Q8H [facility] Administration Ceftriaxone Sodium 2 gm in 50 mls @ 100 mls/hr 08/08/22 11:00 Rocephin IV Q24H [facility] Melatonin 5 mg 08/07/22 06:01 Melatonin 5 Mg Tablet PO 08/07/23 06:00 QHS PRN Insomnia Metoprolol Tartrate 25 mg 08/07/22 21:00 Metoprolol Tartrate 25 Mg Tablet PO 08/07/23 20:59 BID [facility] Naloxone HCl 0.1 mg 08/07/22 06:01 Naloxone Hcl 0.4 Mg/Ml Vial IV-PUSH 08/07/23 06:00 Q2M PRN Opioid Reversal Ondansetron HCl 4 mg 08/07/22 06:01 Ondansetron 4 Mg/2 Ml Vial IV-PUSH 08/07/23 06:00 Q8H PRN Nausea And Vomiting Pantoprazole Sodium 40 mg 08/07/22 09:00 08/07/22 08:36 Pantoprazole 40 Mg Tablet. PO 08/07/23 08:59 40 mg DAILY [facility] Administration Potassium Chloride 10 meq 08/07/22 09:00 08/07/22 08:36 Potassium Chloride Er 10 Meq Capsule.Er PO 08/07/23 08:59 10 meq DAILY [facility] Administration Pramipexole Dihydrochloride 0.25 mg 08/07/22 22:00 Pramipexole 0.25 Mg Tablet PO 08/07/23 21:59 QHS [facility] Sertraline HCl 50 mg 08/07/22 09:00 08/07/22 08:37 Sertraline 50 Mg Tablet PO 08/07/23 08:59 50 mg QAM [facility] Administration Sevelamer Carbonate 800 mg 08/07/22 08:00 08/07/22 11:31 Sevelamer Carbonate 800 Mg Tablet PO 08/07/23 07:59 Not Given TID.WITH.MEALS [facility] Sodium Chloride 10 ml 08/07/22 13:33 Sodium Chloride 0.9 % 10 Ml Syringe IV-PUSH 08/07/23 13:32 PRN PRN Flush Valsartan 320 mg 08/07/22 09:00 08/07/22 08:37 Valsartan 320 Mg Tablet PO 08/07/23 08:59 320 mg DAILY [facility] Administration Documented By: Redd Payton MD 08/07/221445 Signed By: <Electronically signed by Redd Payton MD> 08/07/221446 [facility] Work Phone: [phone] 136-269905-08-2023 Consult note Author Fredy Bryant [facility] August 07, 2022 1:31pmNote Date/TimeMay 2022 11:09[place] [address] Nephrology Consult Note Signed Patient: Jordi Huerta MR#: [id number] : 1975 Acct:[id number] Age/Sex: 47 / M Adm Date: 3 Loc: Room: [address] [place] [address] Type: ADM IN Attending Dr: Redd Payton MD Copies to: MD Redd Purdy MD Jeffrey A Garman, DO~ Providers Consult Date: 08/07/22 Requesting Provider: Redd Payton MD Primary Care Provider: DO KLAUDIA Vallejo Reason for Consult: ESRD management History of Present Illness: This is a 47-year-old male with medical history of Rhodes's esophagus, arthritis, gout, hypertension, polycystic kidney disease, sleep apnea, ESRD and diverticulitis was presented to the [facility] for left lower quadrant pain. Patient had a CAT scan abdomen pelvis done in the emergency room which showed numerous simple and complex cysts on his kidneys, multiple diverticula inthe descending and sigmoid colon.? Most notable abnormal thickening of the proximal sigmoid with free air indicating microperforations.? No abscess or freefluid noted. Patient has a Palutsis focus and had diverticulitis in the past. He follows with Dr. Ledesma and scheduled to see me in August. Patient was started on IV antibiotic and was transferred to [facility] due tohis ESRD. He has a history of ESRD due to polycystic kidney disease and currently goes to the [facility] on TTS schedule. His last hemodialysis was Sunday. Currently has AV fistula as a dialysis access. Nephrologyis consulted for ESRD management during the hospital stay. Patient was seen examined bedside reported to have pain in his abdomen. Review of Systems Review of Systems All other systems reviewed & are negative unless noted below or in HPI Review of systems: Cardiovascular: denies any chest pain, palpitation Pulmonary: denies any cough, hemoptysis Neurological :denies any headache, numbness, weakness Endocrine: denies any polyuria, polydipsia Dermatological: denies any itching or rash PMFSH Vaccinated for COVID-19?: No Medical History Anxiety Arthritis feet Rhodes's esophagus Diverticulitis GERD (gastroesophageal reflux disease) Gout History of COVID-19 summer Hypertension Polycystic kidney disease Sleep apnea [id number] only uses occasionally Surgical History History of esophagogastroduodenoscopy (EGD) History of right hip replacement Hx of colonoscopy Hx of umbilical hernia repair Family History Sister Polycystic kidney disease Sister Polycystic kidney disease Father Polycystic kidney disease Social History Smoking Status: Never smoker Substance Use Type: None Meds Medications & Allergies Allergies amoxicillin Allergy (Verified 01/17/22 06:51) Nausea Home Medications amlodipine 10 mg tablet 10 mg PO QAM htn 03/25/20 [History Confirmed 08/07/22] metoprolol tartrate 25 mg tablet 25 mg PO QHS htn 03/25/20 [History Confirmed 08/07/22] pantoprazole 40 mg tablet,delayed release 40 mg PO QAM gerd 03/25/20 [History Confirmed 08/07/22] potassium chloride 10 mEq capsule,extended release 10 meq PO DAILY 03/25/20 [History Confirmed 08/07/22] valsartan 320 mg-hydrochlorothiazide 25 mg tablet 1 tab PO QAM htn 03/25/20 [History Confirmed 08/07/22] calcitriol 0.25 mcg capsule 0.5 mcg PO DAILY kidneys 10/06/21 [History Confirmed 08/07/22] furosemide 40 mg tablet 40 mg PO BID kidneys 10/06/21 [History Confirmed 08/07/22] sertraline 50 mg tablet 50 mg PO QAM anxiety 10/06/21 [History Confirmed 08/07/22] allopurinol 100 mg tablet 100 mg PO DAILY 01/09/22 [History Confirmed 08/07/22] cinacalcet 30 mg tablet (Sensipar) 30 mg PO DAILY 01/09/22 [History Confirmed 08/07/22] sodium bicarbonate 650 mg tablet 650 mg PO BID 01/09/22 [History Confirmed 08/07/22] pramipexole 0.25 mg tablet 0.25 mg PO QHS 08/07/22 [History Confirmed 08/07/22] sevelamer carbonate 800 mg tablet 800 mg PO TIDWM 08/07/22 [History Confirmed 08/07/22] Active Medications: Active Medications Acetaminophen (Acetaminophen 500 Mg Tablet) 1,000 mg PO Q6HR PRN PRN Reason: Pain Scale 1 - 3 or fever Stop: 08/07/23 06:00 Allopurinol (Allopurinol 100 Mg Tablet) 100 mg PO DAILY [facility] Stop: 08/07/23 08:59 Last Admin: 08/07/22 08:37 Dose: 100 mg Calcitriol (Calcitriol 0.5 Mcg Capsule) 0.5 mcg PO DAILY [facility] Stop: 08/07/23 08:59 Furosemide (Furosemide 40 Mg Tablet) 40 mg PO BID@0800,1600 [facility] Stop: 08/07/23 07:59 Last Admin: 08/07/22 08:36 Dose: 40 mg Heparin Sodium (Porcine) (Heparin 5,000 Unit/Ml Vial) 5,000 unit SUBCUT Q12HR [facility] Stop: 08/07/23 08:59 Last Admin: 08/07/22 08:37 Dose: 5,000 unit Hydrochlorothiazide (Hydrochlorothiazide 25 Mg Tablet) 25 mg PO DAILY [facility] Stop: 08/07/23 08:59 Last Admin: 08/07/22 08:36 Dose: 25 mg Hydromorphone HCl (Hydromorphone 0.5 Mg/0.5 Ml Syringe) 0.25 mg IV-PUSH Q4H PRN PRN Reason: Pain Scale 8 - 10 Last Admin: 08/07/22 06:54 Dose: 0.25 mg Hydromorphone HCl (Hydromorphone 1 Mg/Ml Syringe) 1 mg IV-PUSH Q2H PRN PRN Reason: pain Sodium Chloride (0.9% Sodium Chloride 1,000 Ml) 1,000 mls @ 100 mls/hr IV .[id number] Stop: 08/07/23 06:14 Last Admin: 08/07/22 06:45 Dose: 100 mls/hr Metronidazole (Flagyl) 500 mg in 100 mls @ 100 mls/hr IV Q8H [facility] Last Admin: 08/07/22 06:49 Dose: 100 mls/hr Ceftriaxone Sodium (Rocephin) 1 gm in 50 mls @ 100 mls/hr IV ONCE ONE Stop: 08/07/22 11:29 Ceftriaxone Sodium (Rocephin) 2 gm in 50 mls @ 100 mls/hr IV Q24H [facility] Melatonin (Melatonin 5 Mg Tablet) 5 mg PO QHS PRN PRN Reason: Insomnia Stop: 08/07/23 06:00 Metoprolol Tartrate (Metoprolol Tartrate 25 Mg Tablet) 25 mg PO BID [facility] Stop: 08/07/23 20:59 Naloxone HCl (Naloxone Hcl 0.4 Mg/Ml Vial) 0.1 mg IV-PUSH Q2M PRN PRN Reason: Opioid Reversal Stop: 08/07/23 06:00 Ondansetron HCl (Ondansetron 4 Mg/2 Ml Vial) 4 mg IV-PUSH Q8H PRN PRN Reason: Nausea And Vomiting Stop: 08/07/23 06:00 Pantoprazole Sodium (Pantoprazole 40 Mg Tablet.Dr) 40 mg PO DAILY [facility] Stop: 08/07/23 08:59 Last Admin: 08/07/22 08:36 Dose: 40 mg Potassium Chloride (Potassium Chloride Er 10 Meq Capsule.Er) 10 meq PO DAILY [facility] Stop: 05/07/24 08:59 Last Admin: 08/07/22 08:36 Dose: 10 meq Pramipexole Dihydrochloride (Pramipexole 0.25 Mg Tablet) 0.25 mg PO QHS [facility] Stop: 08/07/23 21:59 Sertraline HCl (Sertraline 50 Mg Tablet) 50 mg PO QAM [facility] Stop: 08/07/23 08:59 Last Admin: 08/07/22 08:37 Dose: 50 mg Sevelamer Carbonate (Sevelamer Carbonate 800 Mg Tablet) 800 mg PO TID.WITH.MEALS [facility] Stop: 08/07/23 07:59 Last Admin: 08/07/22 08:36 Dose: 800 mg Sodium Bicarbonate (Sodium Bicarbonate 650 Mg Tablet) 650 mg PO BID [facility] Stop: 08/07/23 08:59 Last Admin: 08/07/22 08:36 Dose: 650 mg Valsartan (Valsartan 320 Mg Tablet) 320 mg PO DAILY [facility] Stop: 08/07/23 08:59 Last Admin: 08/07/22 08:37 Dose: 320 mg Exam Physical Exam Vital Signs: Temp Pulse Resp BP Pulse Ox O2 Del Method 98.4 F 88 16 117/70 94 L Room Air 08/07/22 08:23 08/07/22 07:32 08/07/22 08:23 08/07/22 08:23 08/07/22 08:23 08/07/22 08:23 Narrative: General: Appears comfortable and not in distress Heart: S1-S2, no rub Lung: Bilateral air entry, no wheezing or crackles Abdomen: Soft, positive bowel sounds Extremities: No edema, no cyanosis Head: Atraumatic, normocephalic Ear: No gross hearing Deficit or external ear redness Eyes: No pallor or redness Neck: No JVD or visible mass Skin: No rashes or bruises SPA HOST: Awake,Alert, following simple command Musculoskeletal: No joint swelling or limitation of movement Psychiatric: Cooperative, normal mood and affect Results Radiology Impressions Impressions - last 24 hours: Any impression(s) listed above is documentation that was entered by the reading physician into a diagnostic report(s) for Jordi Huerta. I have reviewed the report(s) and am incorporating any findings in the treatment plan of this patient where applicable. A&P - Nephrology Assessment/Plan (1) Diverticulitis of intestine with perforation without abscess: Plan: He presented abnormal pain and was found to have diverticulitis. Currently on IV antibiotics.General surgery has been consulted. (2) ESRD (end stage renal disease) on dialysis: Plan: He is a ESRD due to polycystic kidney disease. Currently goes to the [facility] on TTS schedule (3) Benign hypertension with end-stage renal disease: Plan: Blood count he takes multiple antihypertensive medication including amlodipine, furosemide, metoprolol, valsartan?hydrochlorothiazide (4) Secondary hyperparathyroidism: Plan: He has a secondary hyperparathyroidism currently takes calcitriol, sevelamer andSensipar (5) Polycystic kidney disease: Plan: Patient has a polycystic kidney disease runs in the family. Plan * No need for dialysis today. Next dialysis will be tomorrow as per schedule. * Continue home dose of the antihypertensive medication including amlodipine, metoprolol, Lasix, valsartan * Stop hydrochlorothiazide * Continue home dose of the calcitriol and Cinacalcet. * Check renal function daily * Thanks for consult. We will continue follow with you. Please feel free to call us with any question. Documented By: Fredy Bryant MD 08/07/22 1103 Signed By: <Electronically signed by Fredy Bryant MD> 08/07/22 1331 [facility] Work Phone: [phone]) 713-791905-08-2023 Consult note Author Melquiades Ayala [facility] August 07, 2022 12:23pmNote Date/TimeMay 2022 11:17[place] [address] General Surgery Consult Note Signed Patient: Jordi Huerta MR#: [id number] : 1975 Acct:[id number] Age/Sex: 47 / M Adm Date: 3 Loc: Room: [address] [place] [address] Type: ADM IN Attending Dr: Redd Payton MD Copies to: MD Melquiades Beth DO Jeffrey A Garman, DO~ History of Present Illness Date of consult: 08/07/2022 Requesting/Attending Provider: Redd Payton MD History of present illness: Mr Huerta is a 47-year-old male presents today for an acute Diverticulitis consult. He has a past medical history of Diverticulitis, Rhodes's esophagus, GERD, gout, hypertension, polycystic kidney disease, and sleep apnea. He is being evaluated for a kidney transplant in [place], receives dialysis 3times perweek. Past surgical hx of two umbilical hernia repairs over 10 years ago. He presented to [facility] emergency department with severe left lower quadrant pain that started around 8:30 PM yesterday evening. He describes the pain as a 6/10 sharp LLQ pain, aggravated by movement and relieved byrest. He denies any fever, chills, constipation, diarrhea, or blood in the stool. His last bowel movement was yesterday and he does report passing flatus. He reports some improvement since starting on antibiotics at [facility]. ?CT abdomen at [facility] showed multiple diverticula in the descending andsigmoid colon with free air indicating microperforations in the proximal sigmoid colon. Review of Systems Constitutional Constitutional: Denies chills and Denies fever(s) Cardiovascular Cardiovascular: Denies chest pain and Denies leg edema Gastrointestinal Gastrointestinal: Reports abdominal pain, Reports bloating, Denies change in bowel habits, Denies constipation, Denies diarrhea, Denies fecal incontinence, Denies hematochezia and Denies melena Comments: Endorses feelings of having to pass gas, but hesitant to do so because of the abdominal pain. [facility] Attestation Statement: The following information was validated with the patient. Vaccinated for COVID-19?: No Medical History Anxiety Arthritis feet Rhodes's esophagus Diverticulitis GERD (gastroesophageal reflux disease) Gout History of COVID-19 summer Hypertension Polycystic kidney disease Sleep apnea [id number] only uses occasionally Surgical History History of esophagogastroduodenoscopy (EGD) History of right hip replacement Hx of colonoscopy Hx of umbilical hernia repair Family History Sister Polycystic kidney disease Sister Polycystic kidney disease Father Polycystic kidney disease Social History Marital Status: Household Members: spouse and children Housing: house Smoking Status: Never smoker Substance Use Type: None Current Occupational Status: employed Current Occupation: Works for [employer] Allergies & Medications Medications and Allergies Allergies amoxicillin Allergy (Verified 01/17/22 06:51) Nausea Home Medications amlodipine 10 mg tablet 10 mg PO QAM htn 03/25/20 [History Confirmed 08/07/22] metoprolol tartrate 25 mg tablet 25 mg PO QHS htn 03/25/20 [History Confirmed 08/07/22] pantoprazole 40 mg tablet,delayed release 40 mg PO QAM gerd 03/25/20 [History Confirmed 08/07/22] potassium chloride 10 mEq capsule,extended release 10 meq PO DAILY 03/25/20 [History Confirmed 08/07/22] valsartan 320 mg-hydrochlorothiazide 25 mg tablet 1 tab PO QAM htn 03/25/20 [History Confirmed 08/07/22] calcitriol 0.25 mcg capsule 0.5 mcg PO DAILY kidneys 10/06/21 [History Confirmed 08/07/22] furosemide 40 mg tablet 40 mg PO BID kidneys 10/06/21 [History Confirmed 08/07/22] sertraline 50 mg tablet 50 mg PO QAM anxiety 10/06/21 [History Confirmed 08/07/22] allopurinol 100 mg tablet 100 mg PO DAILY 01/09/22 [History Confirmed 08/07/22] cinacalcet 30 mg tablet (Sensipar) 30 mg PO DAILY 01/09/22 [History Confirmed 08/07/22] sodium bicarbonate 650 mg tablet 650 mg PO BID 01/09/22 [History Confirmed 08/07/22] pramipexole 0.25 mg tablet 0.25 mg PO QHS 08/07/22 [History Confirmed 08/07/22] sevelamer carbonate 800 mg tablet 800 mg PO TIDWM 08/07/22 [History Confirmed 08/07/22] Active Medications Acetaminophen (Acetaminophen 500 Mg Tablet) 1,000 mg PO Q6HR PRN PRN Reason: Pain Scale 1 - 3 or fever Stop: 08/07/23 06:00 Allopurinol (Allopurinol 100 Mg Tablet) 100 mg PO DAILY FLA[facility]IO Stop: 08/07/23 08:59 Last Admin: 08/07/22 08:37 Dose: 100 mg Calcitriol (Calcitriol 0.5 Mcg Capsule) 0.5 mcg PO DAILY FLAVIO Stop: 08/07/23 08:59 Furosemide (Furosemide 40 Mg Tablet) 40 mg PO BID@0800,1600 [facility] Stop: 08/07/23 07:59 Last Admin: 08/07/22 08:36 Dose: 40 mg Heparin Sodium (Porcine) (Heparin 5,000 Unit/Ml Vial) 5,000 unit SUBCUT Q12HR FLAVIO Stop: 08/07/23 08:59 Last Admin: 08/07/22 08:37 Dose: 5,000 unit Hydrochlorothiazide (Hydrochlorothiazide 25 Mg Tablet) 25 mg PO DAILY [facility] Stop: 08/07/23 08:59 Last Admin: 08/07/22 08:36 Dose: 25 mg Hydromorphone HCl (Hydromorphone 0.5 Mg/0.5 Ml Syringe) 0.25 mg IV-PUSH Q4H PRN PRN Reason: Pain Scale 8 - 10 Last Admin: 08/07/22 06:54 Dose: 0.25 mg Hydromorphone HCl (Hydromorphone 1 Mg/Ml Syringe) 1 mg IV-PUSH Q2H PRN PRN Reason: pain Sodium Chloride (0.9% Sodium Chloride 1,000 Ml) 1,000 mls @ 100 mls/hr IV .[id number] Stop: 08/07/23 06:14 Last Admin: 08/07/22 06:45 Dose: 100 mls/hr Metronidazole (Flagyl) 500 mg in 100 mls @ 100 mls/hr IV Q8H [facility] Last Admin: 08/07/22 06:49 Dose: 100 mls/hr Ceftriaxone Sodium (Rocephin) 1 gm in 50 mls @ 100 mls/hr IV ONCE ONE Stop: 08/07/22 11:29 Ceftriaxone Sodium (Rocephin) 2 gm in 50 mls @ 100 mls/hr IV Q24H [facility] Melatonin (Melatonin 5 Mg Tablet) 5 mg PO QHS PRN PRN Reason: Insomnia Stop: 08/07/23 06:00 Metoprolol Tartrate (Metoprolol Tartrate 25 Mg Tablet) 25 mg PO BID [facility] Stop: 08/07/23 20:59 Naloxone HCl (Naloxone Hcl 0.4 Mg/Ml Vial) 0.1 mg IV-PUSH Q2M PRN PRN Reason: Opioid Reversal Stop: 08/07/23 06:00 Ondansetron HCl (Ondansetron 4 Mg/2 Ml Vial) 4 mg IV-PUSH Q8H PRN PRN Reason: Nausea And Vomiting Stop: 08/07/23 06:00 Pantoprazole Sodium (Pantoprazole 40 Mg Tablet.Dr) 40 mg PO DAILY F[facility] Stop: 08/07/23 08:59 Last Admin: 08/07/22 08:36 Dose: 40 mg Potassium Chloride (Potassium Chloride Er 10 Meq Capsule.Er) 10 meq PO DAILY FLAVIO Stop: 08/07/23 08:59 Last Admin: 08/07/22 08:36 Dose: 10 meq Pramipexole Dihydrochloride (Pramipexole 0.25 Mg Tablet) 0.25 mg PO QHS [facility] Stop: 08/07/23 21:59 Sertraline HCl (Sertraline 50 Mg Tablet) 50 mg PO QAM [facility] Stop: 08/07/23 08:59 Last Admin: 08/07/22 08:37 Dose: 50 mg Sevelamer Carbonate (Sevelamer Carbonate 800 Mg Tablet) 800 mg PO TID.WITH.MEALS [facility]LA[facility] Stop: 08/07/23 07:59 Last Admin: 08/07/22 08:36 Dose: 800 mg Sodium Bicarbonate (Sodium Bicarbonate 650 Mg Tablet) 650 mg PO BID [facility] Stop: 08/07/23 08:59 Last Admin: 08/07/22 08:36 Dose: 650 mg Valsartan (Valsartan 320 Mg Tablet) 320 mg PO DAILY [facility]LA[facility]IO Stop: 08/07/23 08:59 Last Admin: 08/07/22 08:37 Dose: 320 mg Exam Physical Exam Vital Signs: Temp Pulse Resp BP Pulse Ox O2 Del Method 98.4 F 88 16 117/70 94 L Room Air 08/07/22 08:23 08/07/22 07:32 08/07/22 08:23 08/07/22 08:23 08/07/22 08:23 08/07/22 08:23 Narrative: Patient resting in bed in some discomfort, pleasant and conversant, nontoxic appearing. He reports 5/10 abdominal pain that is sharp and intermittent, aggravated by movement, began last night. The abdomen is tender to palpation, reproducing pain in the LLQ. Abdomen is somewhat distended, firmness throughout. Const General: cooperative and comfortable Nutritional Appearance: average body habitus Orientation: alert, awake and oriented x3 HEENT Head: normal to inspection Ears: hearing grossly normal bilaterally Eyes General: appearance normal, both eyes and all related structures Pupils: PERRL Neck Neck: full ROM Chest Chest palpation & inspection: normal inspection of the chest Resp Effort & Inspection: normal respiratory effort Auscultation: clear to auscultation bilaterally, no rales, no rhonchi and no wheezes Cardio Rate: regular rate Rhythm: regular rhythm GI Inspection: distended (Softly) Palpation: firm in the LLQ, guarding in the LLQ and tender Auscultation: normal bowel sounds Neuro General: patient alert, patient awake and patient oriented x3 Extrem General: normal to inspection Other: Left upper arm dialysis fistula Psych Appearance: grossly normal Results Pain Assessment Generalized Abdomen: Pain Description: Sharp, Tender and Stabbing Pain Intensity: 5 Intake and Output 24 hour I&O: Intake & Output 08/06/22 08/07/22 08/07/22 23:59 07:59 15:59 Intake Total 0 / 0 Balance 0 / 0 Weight 105.5 kg Imaging/EKG CT scan - abdomen: report reviewed CT scan - pelvis: report reviewed A&P - General Surgery (1) Diverticulitis of intestine with perforation without abscess: Code(s): K57.80 - Diverticulitis of intestine, part unspecified, with perforation and abscess without bleeding Status: Acute (2) Dialysis patient: Code(s): Z99.2 - Dependence on renal dialysis Status: Acute (3) Polycystic kidney disease: Code(s): Q61.3 - Polycystic kidney, unspecified Status: Acute Plan I have personally seen and examined the patient on this date of the encounter. I have performed thekey parts of the physical examination, as well as review ofthe history, and pertinent tests. I haveformulated the plan of care and made appropriate entries into the patient's chart. Mr Huerta is a 47 M who presents for diverticulitis consult post CT and transfer from [facility]. CT showed sigmoid diverticulitis and perforation per hospitalist. He receives dialysis 3x per week, and is being evaluated for a kidney transplant [facility]. Previous history of diverticulitis 3 years ago, resolved with hospitalization and Antibiotics. He has no systemic symptoms, denies any fever or chills,endorses some improvement of symptoms. No acute surgical abdomen at this time. Patient may still need surgery if his symptoms do not improve. No recent WBC, check CBC in the a.m. to check for response to antibiotics. Continue pain control Continue antibiotics I will keep him n.p.o. today, and see how he does throughout the day. Documented By: Melquiades Ayala DO 08/07/22 10 55 Signed By: <Electronically signed by Melquiades Ayala DO> 08/07/22 1223 [facility] Work Phone: [phone]) 583-291705-08-2023 History and physical note Author Irene Menendez [facility] August 07, 2022 6:33amNote Date/TimeMay 2022 6:01[place] [address] Hospitalist H&P Signed Patient: Jordi Huerta MR#: [id number] : 1975 Acct:[id number] Age/Sex: 47 / M Adm Date: 3 Loc: Room: [address] [place] [address] Type: ADM IN Attending Dr: Irene Menendez MD Copies to: DO Alma Delia Ch DO, RES Irene Menendez MD~ HPI DATE OF EXAMINATION: 08/07/22 CHIEF COMPLAINT: Abdominal pain HISTORY OF PRESENT ILLNESS: 47-year-old male with past medical history of anxiety, arthritis, Rhodes's esophagus, GERD, gout, hypertension, polycystic kidney disease, sleep apnea presented to [facility] emergency department withsevere left lower quadrant pain that started around 8:30 PM yesterday evening. Patient has a history of diverticulitis about 3 years ago with perforation and stated the pain was the exact same that he had before. Denies any other fevers, chills, nausea, vomiting, diarrhea, bloody bowel movements. Does follow with Dr. Ledesma for his Rhodes's esophagus and is due in September for checkup. States he did not have any follow-up colonoscopy after his last episode of diverticulitis. CT abdomen at [facility] showed numerous simple and complex cysts on his kidneys, multiple diverticula in the descending and sigmoid colon. Most notable abnormal thickening of the proximal sigmoid with free air indicating microperforations. No abscess or free fluid noted. He was given 4 mg of morphine, Levaquin, Flagyl. He did complete dialysis on Sunday and is due for dialysis again on Sunday which is why he was transferred to [facility]. Upon examination, patient is lying in bed comfortably and has intermittent painsthat are tolerable.States his pain is much better controlled than it was before. Confirms above history. States his last bowel movement was today and had no difficulty, endorses no recent constipation Review of Systems Review of Systems All other systems reviewed & are negative unless noted below or in HPI Gastrointestinal Gastrointestinal: Reports abdominal pain [facility] Medical History (Updated 08/07/22 @ 05:47 by Alma Delia Arteaga DO, RES) Anxiety Arthritis feet Rhodes's esophagus Diverticulitis GERD (gastroesophageal reflux disease) Gout History of COVID-summer Hypertension Polycystic kidney disease Sleep apnea [id number] only uses occasionally Surgical History History of esophagogastroduodenoscopy (EGD) History of right hip replacement Hx of colonoscopy Hx of umbilical hernia repair Family History Sister Polycystic kidney disease Sister Polycystic kidney disease Father Polycystic kidney disease Social History Smoking Status: Never smoker Substance Use Type: None Meds Medications and Allergies Allergies amoxicillin Allergy (Verified 01/17/22 06:51) Nausea Home Medications amlodipine 10 mg tablet 10 mg PO QAM htn 03/25/20 [History Confirmed 08/07/22] metoprolol tartrate 25 mg tablet 25 mg PO QHS htn 03/25/20 [History Confirmed 08/07/22] pantoprazole 40 mg tablet,delayed release 40 mg PO QAM gerd 03/25/20 [History Confirmed 08/07/22] potassium chloride 10 mEq capsule,extended release 10 meq PO DAILY 03/25/20 [History Confirmed 08/07/22] valsartan 320 mg-hydrochlorothiazide 25 mg tablet 1 tab PO QAM htn 03/25/20 [History Confirmed 08/07/22] calcitriol 0.25 mcg capsule 0.5 mcg PO DAILY kidneys 10/06/21 [History Confirmed 08/07/22] furosemide 40 mg tablet 40 mg PO BID kidneys 10/06/21 [History Confirmed 08/07/22] sertraline 50 mg tablet 50 mg PO QAM anxiety 10/06/21 [History Confirmed 08/07/22] allopurinol 100 mg tablet 100 mg PO BID 01/09/22 [History Confirmed 08/07/22] cinacalcet 30 mg tablet (Sensipar) 30 mg PO DAILY 01/09/22 [History Confirmed 08/07/22] sodium bicarbonate 650 mg tablet 650 mg PO BID 01/09/22 [History Confirmed 08/07/22] pramipexole 0.25 mg tablet 0.25 mg PO QHS 08/07/22 [History Confirmed 08/07/22] sevelamer carbonate 800 mg tablet 800 mg PO TIDWM 08/07/22 [History Confirmed 08/07/22] Exam Physical Exam Vital Signs: Temp Pulse Resp BP Pulse Ox O2 Del Method 98.2 F 79 18 118/70 98 Room Air 08/07/22 05:35 08/07/22 05:35 08/07/22 05:35 08/07/22 05:35 08/07/22 05:35 08/07/22 05:35 Narrative: CONSTITUTIONAL: Alert, oriented HEAD: Normocephalic, atraumatic EYES: EOMI, pupils equal and reactive, conjunctiva normal RESPIRATORY: No distress, lungs clear bilaterally, symmetric chest rise, no wheezes/rales/rhonchi CARDIOVASCULAR: Regular rate and regular rhythm, no murmurs, symmetric palpable radial and dorsalispedis pulses ABDOMEN: Soft, slightly distended, tender throughout all quadrants most notably in the left upper quadrant with moderate pain in left lower quadrant with severepain even with light palpation, hypoactive bowel sounds SKIN: Intact, no rash, no trauma NEURO: Cranial nerves grossly intact, no focal neurologic signs PSYCHIATRIC: Normal affect A&P - Hospitalist Assessment/Plan (1) Diverticulitis of intestine with perforation without abscess: (2) Dialysis patient: (3) Polycystic kidney disease: Plan Diverticulitis with microperforations, without abscess Symptoms started around 830 yesterday evening No systemic symptoms, changes in bowel habits, bloody stools Follows with Dr. Ledesma for history of Rhodes's esophagus Received Rocephin and Flagyl at [facility] Continue pain control Continue antibiotics Liquid diet until clinical improvement, progress diet as tolerated Surgery consult if progresses despite medical management Polycystic kidney disease on dialysis Completed dialysis on Sunday, due for dialysis on Sunday CT abdomen showed multiple simple and complex cysts Accepted to transplant list at [facility] Code Status: FULL Chronic Conditions: Unless mentioned above, all chronic conditions are stable and essential home medications have been continued DVT Px: Addressed The patient has been seen and examined. H&P written by Dr. Jenni DO. I personally obtained thekey and critical portions of the history and physical exam. I reviewed the chart, the team's documentation, and discussed the patientcare with the team. I agree with the team's medical decision making and have edited the note to reflect my clinical findings and my assessment and plan. MD Cheli Documented By: Irene Menendez MD 08/07/22 0541 Signed By: <Electronically signed by Irene Menendez MD> 08/07/22 0633 <Electronically signed by DO AZRA Arteaga> 08/07/22 0601 [facility] Work Phone: [phone]) [phone] Note [id number] 07-11-2022 Hospital Discharge instructions Patient Education 07/11/2022 08:20:43 EU - Cystoscopy Discharge Instructions (CUSTOM) Cystoscopy Voiding after the procedure: there may be some pain, burning, urgency, frequency and blood tinged urine following the procedure. These symptoms usually resolve within 2-5 days. Drink the amount of fluid it takes to keep the urine pink to yellow or clear in color. Drinking enough water and fluids will help to ease any discomfort after your procedure. If you are having problems that seem out of the ordinary, please call. If unable to contact your physician and you feel it is an emergency, go to the nearest emergency room or call 911 Diet you may resume your normal diet. Activity you may resume your normal activities Call if you have a fever over 100 degrees. Follow Up Care 06/16/2022 10:53:11 With:Cali DUGGAN Address: [facility] [address] [place] [address]- Business (1) When: Unknown Comments:Call for any problems. [facility]04-11-2023 NoteCustom Cystoscopy ? Voiding after the procedure: there may be some pain, burning, urgency, frequency and blood tingedurine following the procedure. These symptoms usually resolve within 2-5 days. Drink the amount of fluid it takes to keep the urine pink to yellow or clear in color. Drinking enough water and fluids will help to ease any discomfort after your procedure. ? If you are having problems that seem out of the ordinary, please call. ? If unable to contact your physician and you feel it is an emergency, go to the nearest emergency room or call 911 ? Diet ? you may resume your normal diet. ? Activity ? you may resume your normal activities ? Call if you have a fever over 100 degrees.[facility] 06-19-2022 Miscellaneous Notes* Telephone Encounter - Paula Valladares - 06/19/2022 3:46 PM EDT Patient rescheduled office visit to later date. He has dialysis on tuesdays. He will get medical records sent to Dr ledesma * Telephone Encounter - Paula Valladares - 06/19/2022 3:23 PM EDT I can not request medical records without signed medical release forms from patient. He has a referral from another physican outside the [facility]. I'll contact patient to call other office for medical records request. * Telephone Encounter - Kristina Mcnamara RN - 06/19/2022 1:57 PM EDT Ca someone please see if Dr. Ledesma's old office can send over past procedures ans last office visitnotes to [place] for an office visit tomorrow. Thank you Kristina Mcnamara RN [facility] Hospital Discharge instructions Patient Education 06/16/2022 10:36:24 Hematuria, Adult Hematuria, Adult Hematuria is blood in the urine. Blood may be visible in the urine, or it may be identified with a test. This condition can be caused by infections of the bladder, urethra, kidney, or prostate. Otherpossible causes include: Kidney stones. Cancer of the urinary tract. Too much calcium in the urine. Conditions that are passed from parent to child (inherited conditions). Exercise that requires a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 N18.4 Q61.2 I12.9 N2 5.81 M10.9 Z68.34 n18.6 z01.818 ESRD ESRD t82.898a ESRD ESRD Chief Complaint n18.6 z01.818 ESRD ESRD t82.898a ESRD ESRD ESRD Chief Complaint t82.898a ESRD ESRD ESRD n18.6 Chief Complaint ESRD ESRD ESRD n18.6 N18.4 Q61.2 Chief Complaint n18.6 N18.4 Q61.2 Dysuria Chief Complaint n18.6 N18.4 Q61.2 R30.0 Z01.818 R90.0Dysuria n18.4 q61.2 i12.9 n25.81 m10.9 z68.34 Chief Complaint n18.6 N18.4 Q61.2 R30.0 Z01.818 R90.0Dysuria n18.4 q61.2 i12.9 n25.81 m10.9 z68.34 N18.6 Chief Complaint n18.6 N18.4 Q61.2 R30.0 Z01.818 R90.0Dysuria n18.4 q61.2 i12.9 n25.81 m10.9 z68.34 N18.6 Q61.2 N18.6 Chief Complaint n18.4 q61.2 i12.9 n2 5.81 m10.9 z68.34 N18.6 Q61.2 N18.6 DiverticulitisReason for VisitBenign hypertension with end-stage renal disease Dialysis patient Diverticulitis Diverticulitis of intestine with perforation without abscess ESRD (end stage renal disease) on dialysis Polycystic kidney disease Secondary hyperparathyroidism Chief Complaint Diverticulitis colostomy issues, nausiaReason for VisitBenign hypertension with end-stage renal disease Dialysis patient Diverticulitis Diverticulitis of intestine with perforation without abscess ESRD (end stage renal disease) on dialysis Polycystic kidney disease Secondary hyperparathyroidism Chief Complaint Congestion Chief Complaint Admit Date congestion, cough July 14, 2024 2:2 5pm Family History No Family History Records Found Relationship Condition Age at Onset Recorded Date/T honey sister Polycystic kidney disease Unknown fatherPolycystic kidney diseaseUnknown Relationship Condition Age at Onset Recorded Date/T honey sister Polycystic kidney disease Unknown fatherPolycystic kidney diseaseUnknownfatherHeart diseaseUnknownDeceasedUnknown Advance Directives No Advanced Directives Records Found Advance Directive Response Recorded Date/ Time Advance Directives No April 17, 2017 11:27am Advance Directive Response Recorded Date/ Time Advance Directives No April 17, 2017 10:27am Date ActivatedDate InactivatedComments09/10/2018 5:05 PM09/11/2018 6:08 PM Summary Purpose Additional Source Comments REASON FOR VISIT (unrecogniz ed section and content) ReasonCommentsPatient UpdateReasonCommentsLaryngitisReasonCommentsMed Management Wadymt-khHgapjjNwbipofxOzphua-dnZxmdwhcjnOazledxuf / ProceduresReferred By ContactReferred To ContactOtolaryngology Diagnoses Dysphonia Vocal fold paralysis, right Procedures [place] [address] [address] Department [place] [address] Phone: tel: fax: Referral IDStatusReasonStart DateExpiration DateVisits RequestedVisits [id number]/15/202410/15/[id number] Commentsvocal cord paralysisFollow up CT chest and CT neck, NOMSReasonComments Annual ExamPt here today for annual exam/get established with Dr Shabazz team. Last saw Dr. Jauregui 11/07/23. Pt hadkidney transplant 05/03/24. Care Teams (unrecognized sec tion and content) Team Status: Active Member Role Status Dates Joe Jauregui DO Primary Care Provider Active Team Status: Active Member Role Status Dates Joe Jauregui DO Primary Care Provider Active Start: June 24, 2023 Leela Schrader MDAttending ProviderActiveStart: June 24, 2023 Team Status: Active Member Role Status Dates Joe Jauregui DO Primary Care Provider Active Start: July 26, 2023 Myron Barraza ProviderActiveStart: July 26, 2023 Team Status: Inactive Member Role Status Dates Joe Jauregui DO Primary Care Provider Active Start: September 06, 2023 End: September 05Sadia Duenas ProviderActiveStart: September 06, 2023 End: September 06, 2023 Team Status: Inactive Member Role Status Dates Joe Jauregui DO Primary Care Provider Active Myron Salmeron ProviderActive Team Status: Inactive Member Role Status Dates Joe Jauregui DO Primary Care Provider Active Myron Barraza ProviderActive Team Status: Inactive Member Role Status Dates Joe Jauregui DO Primary Care Provider, Attending Fran ramos Active Team MemberRelationshipSpecialtyStart DateEnd Date Joe Jauregui DO [address] [place] [address] PCP - GeneralInternal Medicine04/09/22 Team Status: Inactive Member Role Status Dates Joe Jauregui DO Primary Care Provider Active Giovanni Noeit ProviderActiveAndharini Payton MDAttending Provider ActiveFrodell Ayala DOOther ProviderActiveFredy Bryatn MDOther Provider Active Team Status: Inactive Member Role Status Dates Joe Jauregui DO Primary Care Provider Active Ryan Campbell ProviderActiveTeam MemberRelationshipSpecialty Start DateEnd Date Joe Jauregui DO [address] [place] [address] PCP - General05/14/19Team MemberRelationshipSpecialtyStart DateEnd Date Joe Jauregui, [address] [place] [address] PCP - GeneralInternal Medicine09/15/22 Yanira Beavers, [employer] [address] [place] [address] PCP - [place] Ikcicupbav18/1/23 Yanira Beavers, [employer] [facility] [address] [place] [address] Nurse PractitionerMeadville [facility]09/15/22Team MemberRelationshipSpecialtyStart DateEnd Date Joe Jauregui, [address] [place] [address] PCP - GeneralInternal Medicine09/15/22 Yanira Beavers, FL[employer] [address] [place] [address] PCP - [place] Nbygjbjtmd69/1/23 Yanira Beavers, FL[employer] C[employer] [address] [place] [address] Nurse PractitionerMeadville [facility] Center09/15/22Te MemberRelationshipSpecialtyStart DateEnd Date Joe Jauregui, DO [address] [place] [address] PCP - General05/14/19Team MemberRelationshipSpecialtyStart DateEnd Date Joe Jauregui DO [address] [place] [address] PCP - GeneralInternal Medicine09/15/22 Yanira Beavers, FL[employer] C[employer] [address] [place] [address] PCP - [place] Rbpcoecrpn87/1/23 Yanira Beavers, FLAME C[employer] [address] [place] [address] Nurse Practitionerhavioral Health09/15/22Team MemberRelationshipSpecialtyStart DateEnd Date Joe Jauregui DO [address] [place] [address] PCP - GeneralInternal Medicine09/15/22 Yanira Beavers, FLAME C[employer] [address] [facility] [address] [place] [address] PCP - [place] Pnpvnovfbh37/1/23 Yanira Beavers, FLAME C[employer] [address] [place] [address] Nurse PractitionerBehavioral Health09/15/22Team MemberRelationshipSpecialtyStart DateEnd Date Joe Jauregui DO [address] [place] [address] PCP - GeneralInternal Medicine09/15/22 Yanira Beavers, FL[employer] C[employer] [address] [facility] [address] [place] [address] PCP - [place] Tgynuluihm38/1/23 Yanira Beavers, FLAME C[employer]TER[employer] [address] [facility] [address] [place] [address] Nurse PractitionerMeadville Medical Center09/15/22Team MemberRelationshipSpecialtyStart DateEnd Date Joe Jauregui DO [address] [place] [address] [facility] - [facility]22 Yanira Beavers, FLAME C[employer] H[employer] [address] [facility] [address] [place] [address] PCP - [facility]12/31/22 Yanira Beavers, FLAME CUTTER[employer] [address] [facility] [address] [place] [address] Nurse PractitionerMeadville Medical Center09/15/22 Team Status: Active Member Role Status Dates Joe Jauregui DO Primary Care Provider Active Start: April 25, 2024 Myron Purdy ProviderActiveStart: April 25, 2024 Team Status: Active Member Role Status Dates Joe Jauregui DO Primary Care Provider Active Start: May 26, 2024 Myron Purdy ProviderActiveStart: May 26, 2024 Team Status: Inactive Member Role Status Dates Joe Jauregui DO Primary Care Provider Active Start: July 14, 2024 End: July 14Sadia Duenas ProviderActiveStart: July 14, 2024 End: July 14, 2024Team MemberRelationshipSpecialtyStart DateEnd Date Joe Jauregui DO [address] [place] [address] PCP - GeneralInternal Medicine09/15/22 Yanira Beavers, FL[employer] [address] [place] [address] Nurse PractitionerBehavioral Health09/15/22Team MemberRelationshipSpecialtyStart DateEnd Date Joe Jauregui DO [address] [facility], [address] [place] [address] PCP - GeneralInternal Medicine07/02/18Team MemberRelationshipSpecialtyStart Date End Date Joe Jauregui DO [address] [place] [address] PCP - GeneralInternal Medicine09/15/22 Yanira Beavers, FLAME C[employer] [address] [facility] [address] [place] [address] Nurse PractitionerMeadville Medical Center09/15/22Team MemberRelationshipSpecialtyStart DateEnd Date Rayshawn Shabazz MD [address] [place] [address] PCP - GeneralInternal Medicine12/22/24 Yanira Beavers, FL[employer] C[employer] [address] [place] [address] Nurse Practitionerhavioral Health09/15/22Team MemberRelationshipSpecialtyStart DateEnd Date Joe Jauregui DO [address] [place] [address] PCP - GeneralInternal Medicine Yanira Beavers, FLAME C[employer] [address] [facility] [address] [place] [address] PCP - [facility] Rayshawn Shabazz MD [address] [place] [address] PCP - GeneralInternal Medicine12/22/24 Yanira Beavers, FLAME CUTTER[employer] HOST [address] [facility] [address] [place] [address] Nurse PractitionerMeadville Medical Center09/15/22 Shreya Washington LPN [address] [place] [address] Licensed Practical NurseFamily Medicine Marjorie De La O, RN [address] [place] [address] Registered NurseFamily Medicine Goals (unrecognized section and content) Goals may be documented in a n alternate section (unrecognized sect ion and content) No Status Records FoundNo Status Records FoundNo Status Records FoundNo Status Records FoundNo Status Records FoundNo Status Records FoundNo Status Records Found INFORMATION SOURCE (unrecogn ized section and content) DATE CREATED AUTHOR 07/18/2022 [facility] DATE CREATED AUTHOR AUTHOR'S ORGANIZ ATION 08/10/2022 [facility] DATE CREATED AUTHOR AUTHOR'S ORGANIZ ATION 05/11/2023 [facility] DATE CREATED AUTHOR AUTHOR'S ORGANIZ ATION 03/06/2024 [facility] DATE CREATED AUTHOR AUTHOR'S ORGANIZ ATION 04/03/2024 [facility] DATE CREATED AUTHOR AUTHOR'S ORGANIZ ATION 01/08/2025 [facility] DATE CREATED AUTHOR AUTHOR'S ORGANIZ ATION 01/30/2025 [facility] Source Comments (unrecognize d section and content) In the event this informatio n is protected by the Federal Confidentiality of Alcohol and Drug Abuse Patient Records regulations: The Federal rules restrict any use of the information to criminally investigate or prosecute any alcohol or drug abuse patient.[facility] FOR RECORDS PERTAINING TO PATIENTS WHO ARE OR HAVE BEEN ENROLLED IN A CHEMICAL DEPENDENCY/SUBSTANCEABUSE PROGRAM, SOME INFORMATION MAY BE OMITTED. This clinical summary was aggregated from multiple sources. Caution should be exercised in using it in the provision of clinical care. This summary normalizes information from multiple sources, and as a consequence, information in this document may materially change the coding, format and clinical context of patient data. In addition, data may be omitted in some cases. CLINICAL DECISIONS SHOULD BE BASED ON THE PRIMARY CLINICAL RECORDS. [facility] [employer] [facility]. provides no warranty or guarantee of the accuracy or completeness of information in this document.
--- OUTSIDE RECORDS SUMMARY | 2025-02-04 18:07 | XMS_ITS ---
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 Procedures Procedure Date / Time Performed Performing Clinician Jazlyn ce Details AV Fistula 2021-12-06 04:00:00 Access SiteUpper Arm (Left)Access Use Start Nygi5330-15-59 04:00:00 DIALYSIS TREATMENT INFORMATION Conventional Hemodialysis Date Type Treatment Start Date Treatment End Date Pre-Treatment Vitals Post-Treatment Vitals Weight Gain BFR DFR Actual UF Dialysis Access May 17, 2024 Backup Hemodialysis Treatment 0671-97-02C29:24:04.000Z 2076-96-85U85:27:07.000Z BP Sitting (Pre-Dialysis) 157/115 mmHg BP Sitting (Post-Dialysis) 143/81 mmHg * Concurrent Access: false * AV Fistula Upper Arm (Left) Arterial Sitting Heart Rate Pre-Cfojgklf464 BPMBP Standing (Post-Dialysis)144/85 mmHg Temperature Pre-Rmpwapux21.6 degFSitting Heart Rate Post-Nehkicvj39 BPMStanding Heart Rate Post-Gqxtkhtm41 BPMTemperature Post-Hjsxectk39.6 degFFebruary 2024[facility] Pqtfiwdoj4517-90-07T07:48:39.000Z 2276-42-72Q88:56:40.000ZBP Sitting (Pre-Dialysis)153/95 mmHgBP Sitting (Post-Dialysis)157/78 mmHg* Concurrent Access: false * AV Fistula Upper Arm (Left) Arterial Sitting Heart Rate Pre-Tpzfaqkq85 BPMBP Standing (Post-Dialysis)152/74 mmHg Temperature Pre-Ujcxxmvk54.2 degFSitting Heart Rate Post-Lqxnckdg67 BPMStanding Heart Rate Post-Zipyersv84 BPMTemperature Post-Mirbhnpz80.7 degFJanuary 2024 [facility] Cchtguwvm8638-24-77Y61:14:06.640R3816-16-08Q11:13:09.000Z BP Sitting (Pre-Dialysis)165/103 mmHgBP Sitting (Post-Dialysis)131/81 mmHg* Concurrent Access: false * AV Fistula Upper Arm (Left) Arterial Sitting Heart Rate Pre-Zzwhwcvv88 BPMBP Standing (Post-Dialysis)130/86 mmHg Temperature Pre-Vcjerfkx10.4 degFSitting Heart Rate Post-Iqxhvqlw65 BPMStanding Heart Rate Post-Afjriqdf360 BPMTemperature Post-Jfqopboq14.8 degFJanuary 2024[facility] Xgkudoxif4478-26-59I24:13:33.000Z 3551-76-96W93:24:36.000ZBP Sitting (Pre-Dialysis)175/104 mmHgBP Sitting (Post-Dialysis)141/91 mmHg* Concurrent Access: false * AV Fistula Upper Arm (Left) Arterial Sitting Heart Rate Pre-Ygrtaidb74 BPMSitting Heart Rate Post-Uuivavvs90 BPM Temperature Pre-Xrzehrcw97.6 degFTemperature Post-Cmrzyuhn12 degFJanuary 2024[facility] Evylkdpon6536-86-14G67:14:44.000Z 8216-93-83S54:05:47.000ZBP Sitting (Pre-Dialysis)179/105 mmHgBP Sitting (Post-Dialysis)123/84 mmHg* Concurrent Access: false * AV Fistula Upper Arm (Left) Arterial Sitting Heart Rate Pre-Zxtxfrkc26 BPMBP Standing (Post-Dialysis)147/92 mmHg Temperature Pre-Hrfjiqmb83 degFSitting Heart Rate Post-Wegilety62 BPMStanding Heart Rate Post-Sduyyhlg412 BPMJanuary 2024[facility] Treatment 1570-57-67H78:15:21.378S0974-88-11B88:14:25.000ZBP Sitting (Pre-Dialysis)154/104 mmHgBP Sitting (Post-Dialysis)144/68 mmHg* Concurrent Access: false * AV Fistula Upper Arm (Left) Arterial Sitting Heart Rate Pre-Qqssbcix09 BPMBP Standing (Post-Dialysis)131/76 mmHg Temperature Pre-Puqvsfkw50.2 degFSitting Heart Rate Post-Ffejmnlj17 BPMStanding Heart Rate Post-Kretefhm41 BPMTemperature Post-Oqwfnwyu75.6 degFJanuary 2024 [facility] Yczxajxgm7030-97-71U13:13:48.862K0602-71-94A99:13:52.000Z BP Sitting (Pre-Dialysis)156/93 mmHgBP Sitting (Post-Dialysis)143/85 mmHg* Concurrent Access: false * AV Fistula Upper Arm (Left) Arterial Sitting Heart Rate Pre-Sxrposjo08 BPMSitting Heart Rate Post-Jftwuxnr81 BPM Temperature Pre-Orucriue93 degFTemperature Post-Dkgapceq50 degFJanuary 2024 [facility] Nozbjhqgp2215-53-14N21:25:59.605N1577-83-76E01:02:03.000Z BP Sitting (Pre-Dialysis)155/82 mmHgBP Sitting (Post-Dialysis)165/107 mmHg* Concurrent Access: false * AV Fistula Upper Arm (Left) Arterial Sitting Heart Rate Pre-Jvyxftrz24 BPMBP Standing (Post-Dialysis)120/87 mmHg Temperature Pre-Pdfoedij60.2 degFSitting Heart Rate Post-Qlbxdomh42 BPMStanding Heart Rate Post-Qeypcopq40 BPMTemperature Post-Gcdwbwne93.2 degFJanuary 2024 [facility] Ydbdqxztx3716-44-47T08:25:26.432S0819-69-40E19:26:31.000Z BP Sitting (Pre-Dialysis)159/99 mmHgBP Sitting (Post-Dialysis)144/92 mmHg* Concurrent Access: false * AV Fistula Upper Arm (Left) Arterial BP Standing (Pre-Dialysis)163/100 mmHgSitting Heart Rate Post-Qseurjoq896 BPM Sitting Heart Rate Pre-Ojrdzdzh61 BPMTemperature Post-Rdzzxhpy07.2 degFStanding Heart Rate Pre-Gvrdewle96 BPMTemperature Pre-Gwnmngec83.3 degFJanuary 2024 [facility] Eaiktjqub1352-82-86P88:16:54.682V7471-83-75L16:17:57.000Z BP Sitting (Pre-Dialysis)173/101 mmHgBP Sitting (Post-Dialysis)119/83 mmHg* Concurrent Access: false * AV Fistula Upper Arm (Left) Arterial Sitting Heart Rate Pre-Sigrtkfr01 BPMSitting Heart Rate Post-Fjpudvlo86 BPM Temperature Pre-Lvwtftok59.2 degFTemperature Post-Ckbfclfb04.7 degFJanuary 2024[facility] Lvwokoevn5069-63-82R48:16:04.000Z 6464-04-74A01:08:08.000ZBP Sitting (Pre-Dialysis)169/94 mmHgBP Sitting (Post-Dialysis)140/81 mmHg* Concurrent Access: false * AV Fistula Upper Arm (Left) Arterial Sitting Heart Rate Pre-Mvmnfpvd54 BPMBP Standing (Post-Dialysis)136/86 mmHg Temperature Pre-Crlelfzm31 degFSitting Heart Rate Post-Zguzgchi89 BPMStanding Heart Rate Post-Hpofefhi76 BPMTemperature Post-Wjhslbcy76 degFJanuary 2024 [facility] Dihukgxyk2987-53-96V85:14:32.249R3671-37-18F59:11:35.000Z BP Sitting (Pre-Dialysis)165/91 mmHgBP Sitting (Post-Dialysis)167/79 mmHg* Concurrent Access: false * AV Fistula Upper Arm (Left) Arterial Sitting Heart Rate Pre-Tzkgoqbp13 BPMSitting Heart Rate Post-Cbpivnvk86 BPM Temperature Pre-Peeyavki95.2 degFTemperature Post-Jsfnmbgq72.2 degFJanuary 2024[facility] Ktehfgxwm5165-62-22N56:11:59.000Z 9993-57-06E21:56:02.000ZBP Sitting (Pre-Dialysis)185/108 mmHgBP Sitting (Post-Dialysis)146/59 mmHg* Concurrent Access: false * AV Fistula Upper Arm (Left) Arterial Sitting Heart Rate Pre-Ajvawsey30 BPMBP Standing (Post-Dialysis)125/62 mmHg Temperature Pre-Lgqdjfjv03 degFSitting Heart Rate Post-Wrzdknpb59 BPMStanding Heart Rate Post-Azypfwln14 BPMTemperature Post-Xbeogiir76.5 degFJanuary 2024 [facility] Nhgvyazlg4163-54-09D63:25:10.142Z6928-57-32P87:23:14.000Z BP Sitting (Pre-Dialysis)149/87 mmHgBP Sitting (Post-Dialysis)148/90 mmHg* Concurrent Access: false * AV Fistula Upper Arm (Left) Arterial Sitting Heart Rate Pre-Pkaokfya84 BPMBP Standing (Post-Dialysis)149/86 mmHg Temperature Pre-Eievooav42.2 degFSitting Heart Rate Post-Mryhyppq81 BPMStanding Heart Rate Post-Gcvrjuas12 BPMTemperature Post-Zhscqdcj34.6 degFJanuary 2024 [facility] [facility] Ylxzydldl2669-84-64R35:17:37.362B8748-62-19H99:15:41.000Z BP Sitting (Pre-Dialysis)149/88 mmHgBP Sitting (Post-Dialysis)118/70 mmHg* Concurrent Access: false * AV Fistula Upper Arm (Left) Arterial Sitting Heart Rate Pre-Hzctxfxo74 BPMBP Standing (Post-Dialysis)105/71 mmHg Temperature Pre-Logxgkdg13.2 degFSitting Heart Rate Post-Iquclprr28 BPMStanding Heart Rate Post-Esfaudcl17 BPMTemperature Post-Lzyrndkl60.8 [facility]FD[facility] 2023[facility] Ptdzlsmkv2745-81-97V57:32:06.000Z 5838-15-79G98:29:10.000ZBP Sitting (Pre-Dialysis)144/95 mmHgBP Sitting (Post-Dialysis)132/80 mmHg* Concurrent Access: false * AV Fistula Upper Arm (Left) Arterial Sitting Heart Rate Pre-Inpislbn80 BPMBP Standing (Post-Dialysis)130/86 mmHg Temperature Pre-Rkhokobe91.1 degFSitting Heart Rate Post-Vahthlmi54 BPMStanding Heart Rate Post-Tzhdtspi77 BPMTemperature Post-Qrlvrtqe71 degFDmission hospital20[facility] Yzwyrpprf7152-22-87I41:48:16.487H0509-27-34R01:20:19.000Z BP Sitting (Pre-Dialysis)156/90 mmHgBP Sitting (Post-Dialysis)124/83 mmHg* Concurrent Access: false * AV Fistula Upper Arm (Left) Arterial Sitting Heart Rate Pre-Llvjjnlk97 BPMBP Standing (Post-Dialysis)125/76 mmHg Temperature Pre-Iinlfkyd83.6 degFSitting Heart Rate Post-Luhluxps23 BPMStanding Heart Rate Post-Ejmixvsv85 BPMTemperature Post-Gdficiar73.8 degFDb[facility] 2023[facility] Kwewchvcr8027-46-03K74:12:44.000Z 2139-19-82I83:27:13.000ZBP Sitting (Pre-Dialysis)165/95 mmHgBP Sitting (Post-Dialysis)135/96 mmHg* Concurrent Access: false * AV Fistula Upper Arm (Left) Arterial Sitting Heart Rate Pre-Ssjsfzan13 BPMBP Standing (Post-Dialysis)157/100 mmHg Temperature Pre-Tbtjmbce94 degFSitting Heart Rate Post-Jvbcjlnw12 BPMStanding Heart Rate Post-Xafqhwyo71 BPMTemperature Post-Omcbnams11.2 degFDecember 2023[facility] Dsbrtobef2375-21-87E70:12:00.000Z 8775-46-07X99:14:14.000ZBP Sitting (Pre-Dialysis)162/102 mmHgBP Sitting (Post-Dialysis)172/92 mmHg* Concurrent Access: false * AV Fistula Upper Arm (Left) Arterial Sitting Heart Rate Pre-Haqbmwox68 BPMSitting Heart Rate Post-Jogljpwl78 BPM Temperature Pre-Ipukagug71.3 degFTemperature Post-Priweaiz15.2 degFDecember 2023[facility] Feghymsur2886-32-08G53:15:22.000Z 2769-09-98K65:06:26.000ZBP Sitting (Pre-Dialysis)182/103 mmHgBP Sitting (Post-Dialysis)116/85 mmHg* Concurrent Access: false * AV Fistula Upper Arm (Left) Arterial Sitting Heart Rate Pre-Jzpcpnjy36 BPMSitting Heart Rate Post-Amiijmlu13 BPM Temperature Pre-Gdmfmojc16.2 degFTemperature Post-Dgkpyulw39.8 degFDecember 2023[facility] Zlunfsxmp0386-39-44T49:13:49.000Z 7634-49-35B65:14:52.000ZBP Sitting (Pre-Dialysis)151/94 mmHgBP Sitting (Post-Dialysis)139/83 mmHg* Concurrent Access: false * AV Fistula Upper Arm (Left) Arterial Sitting Heart Rate Pre-[place]42 BPMSitting Heart Rate Post-Rkoumnvx19 BPM Temperature Pre-Iygffycu03 degFTemperature Post-Bvsqicnx44.9 degFDecember 2023[facility] Mhbmbjblj3697-53-61G87:28:17.000Z 1213-40-28N63:32:20.000ZBP Sitting (Pre-Dialysis)134/93 mmHgBP Sitting (Post-Dialysis)149/91 mmHg* Concurrent Access: false * AV Fistula Upper Arm (Left) Arterial Sitting Heart Rate Pre-Jvedfklw96 BPMBP Standing (Post-Dialysis)123/83 mmHg Temperature Pre-Auvsepbx52.2 degFSitting Heart Rate Post-Ryvypbmp90 BPMStanding Heart Rate Post-Swyyobxy564 BPMTemperature Post-[facility]ykhpugh10.9 [facility]23[facility] Phbhsqcwb0017-13-74O61:23:27.000Z 0892-61-16D28:39:30.000ZBP Sitting (Pre-Dialysis)151/121 mmHgBP Sitting (Post-Dialysis)154/89 mmHg* Concurrent Access: false * AV Fistula Upper Arm (Left) Arterial Sitting Heart Rate Pre-Fkhgmqpg028 BPMBP Standing (Post-Dialysis)138/79 mmHg Temperature Pre-Ostvrlbg901.9 degFSitting Heart Rate Post-Wunwfcvs407 BPM Standing Heart Rate Post-Ofrjwujo063 BPMTemperature Post-Erwoajqj71.9 degF March 13, 2024[facility] Ikkrgaiyh7630-21-66Q33:09:53.000Z 1728-72-21C34:03:57.000ZBP Sitting (Pre-Dialysis)156/90 mmHgBP Sitting (Post-Dialysis)141/85 mmHg* Concurrent Access: false * AV Fistula Upper Arm (Left) Arterial Sitting Heart Rate Pre-Cmsutkpl68 BPMBP Standing (Post-Dialysis)133/81 mmHg Temperature Pre-Zxmljqyd63 degFSitting Heart Rate Post-Rlgjfvbh45 BPMStanding Heart Rate Post-Giagpxbu590 BPMTemperature Post-Lhqewiwl55.7 [facility] 2023[facility] Ubsguetii1476-97-90O22:07:21.000Z 4605-65-31G70:08:25.000ZBP Sitting (Pre-Dialysis)170/99 mmHgBP Sitting (Post-Dialysis)157/82 mmHg* Concurrent Access: false * AV Fistula Upper Arm (Left) Arterial Sitting Heart Rate Pre-Bssennrn65 BPMBP Standing (Post-Dialysis)137/87 mmHg Temperature Pre-Lszocmoi86.2 degFSitting Heart Rate Post-Obtlfcbr65 BPMStanding Heart Rate Post-Strdbepf57 BPMTemperature Post-Taojcrdc87.4 [facility] 2023[facility] Crmxywdeq2411-12-22A64:16:16.000Z 0178-51-65T80:14:19.000ZBP Sitting (Pre-Dialysis)150/96 mmHgBP Sitting (Post-Dialysis)113/85 mmHg* Concurrent Access: false * AV Fistula Upper Arm (Left) Arterial Sitting Heart Rate Pre-Noimvenf86 BPMBP Standing (Post-Dialysis)116/82 mmHg Temperature Pre-Wpffubfn75.4 degFSitting Heart Rate Post-Ycouyqmh35 BPMStanding Heart Rate Post-Qzoyvylq90 BPMTemperature Post-Muhczzis22.4 degFDecember 2023[facility] Wikhetrfa7313-91-39S59:35:00.000Z 3469-82-11L98:53:26.000ZBP Sitting (Pre-Dialysis)174/102 mmHgBP Sitting (Post-Dialysis)134/63 mmHg* Concurrent Access: false * AV Fistula Upper Arm (Left) Arterial Sitting Heart Rate Pre-Noqmhjns95 BPMSitting Heart Rate Post-Tuvjpyvt92 BPM Temperature Pre-Llyluzse48.5 degFTemperature Post-Tobnxqjo95.6 degFDecember 2023[facility] Gufzrigee0612-27-67T53:31:29.000Z 2434-01-67Q87:27:33.000ZBP Sitting (Pre-Dialysis)151/104 mmHgBP Sitting (Post-Dialysis)127/72 mmHg* Concurrent Access: false * AV Fistula Upper Arm (Left) Arterial Sitting Heart Rate Pre-Bulpfikr86 BPMBP Standing (Post-Dialysis)130/73 mmHg Temperature Pre-Qefniowf17.2 degFSitting Heart Rate Post-Eohbijvx14 BPMStanding Heart Rate Post-Ttcqpxlr65 BPMTemperature Post-Uwesznry05.5 degFNovember 2023[facility] Lfkwkypwy2259-24-76K73:41:16.000Z 3538-47-28Y75:06:19.000ZBP Sitting (Pre-Dialysis)149/95 mmHgBP Sitting (Post-Dialysis)139/88 mmHg* Concurrent Access: false * AV Fistula Upper Arm (Left) Arterial Sitting Heart Rate Pre-Njtqhriu75 BPMBP Standing (Post-Dialysis)108/66 mmHg Temperature Pre-Zmxwnoon65.2 degFSitting Heart Rate Post-Tgfjrkgv53 BPMStanding Heart Rate Post-Hsdcgcda30 BPMTemperature Post-Gfxpfdhz97 degFNovember 2023 [facility] Wqrbtvnsd5227-98-58J75:34:42.655N5842-42-70C91:35:44.000Z BP Sitting (Pre-Dialysis)162/101 mmHgBP Sitting (Post-Dialysis)138/92 mmHg* Concurrent Access: false * AV Fistula Upper Arm (Left) Arterial Sitting Heart Rate Pre-Zbzprhtq51 BPMSitting Heart Rate Post-Zeelensr47 BPM Temperature Pre-Sikrnbqe75.8 degFTemperature Post-Ggyjccxr22.2 degFNovember 2023[facility] Oaesnpzzp1603-70-02Q94:16:23.000Z 3140-20-38T86:14:27.000ZBP Sitting (Pre-Dialysis)163/90 mmHgBP Sitting (Post-Dialysis)142/83 mmHg* Concurrent Access: false * AV Fistula Upper Arm (Left) Arterial Sitting Heart Rate Pre-Adcnvbry49 BPMBP Standing (Post-Dialysis)116/77 mmHg Temperature Pre-Bxnlunqq94 degFSitting Heart Rate Post-Afqbsggn35 BPMStanding Heart Rate Post-Tknsakyk185 BPMTemperature Post-Sdqglrlo40.4 degFNovember 2023[facility] Hzgxpdinl9529-17-96T05:08:10.000Z 2918-66-66Y55:10:14.000ZBP Sitting (Pre-Dialysis)159/93 mmHgBP Sitting (Post-Dialysis)111/74 mmHg* Concurrent Access: false * AV Fistula Upper Arm (Left) Arterial Sitting Heart Rate Pre-Fbnkavmx81 BPMBP Standing (Post-Dialysis)101/74 mmHg Temperature Pre-Wkggbfxk00.9 degFSitting Heart Rate Post-Brpajijg80 BPMStanding Heart Rate Post-Aoypxkec95 BPMTemperature Post-Pcpgvfqv27.2 degFNovember 2023[facility] Gaobusgyr2259-96-73L90:24:10.000Z 9537-56-22K64:21:14.000ZBP Sitting (Pre-Dialysis)159/105 mmHgBP Sitting (Post-Dialysis)134/94 mmHg* Concurrent Access: false * AV Fistula Upper Arm (Left) Arterial Sitting Heart Rate Pre-Sjgysefb45 BPMBP Standing (Post-Dialysis)134/85 mmHg Temperature Pre-Isdswoef68 degFSitting Heart Rate Post-Rdmajatg998 BPMStanding Heart Rate Post-Ahxfdprq83 BPMTemperature Post-Zpiiajok21.2 degFNovember 2023[facility] Jhezynwun8038-63-57J95:10:10.000Z 6898-83-19S61:07:14.000ZBP Sitting (Pre-Dialysis)176/104 mmHgBP Sitting (Post-Dialysis)144/65 mmHg* Concurrent Access: false * AV Fistula Upper Arm (Left) Arterial Sitting Heart Rate Pre-Rygkfcpo83 BPMBP Standing (Post-Dialysis)132/70 mmHg Temperature Pre-Dqtyouln65 degFSitting Heart Rate Post-Hvcbhnsh58 BPMStanding Heart Rate Post-Aqxyumis82 BPMTemperature Post-Yurwispd41.5 degFNovember 2023[facility] Ayregertn0437-58-49A69:35:10.000Z 9733-54-68P10:02:14.000ZBP Sitting (Pre-Dialysis)161/104 mmHgBP Sitting (Post-Dialysis)142/102 mmHg* Concurrent Access: false * AV Fistula Upper Arm (Left) Arterial Sitting Heart Rate Pre-Rvhpvmrx41 BPMBP Standing (Post-Dialysis)168/89 mmHg Temperature Pre-Awlnbohv60.2 degFSitting Heart Rate Post-Vurzhvfv22 BPMStanding Heart Rate Post-Stdfvqld32 BPMTemperature Post-Swtpquvp21.2 degFNovember 2023[facility] Mjsnvqnqh1358-60-70H96:15:10.000Z 2741-84-25E95:18:14.000ZBP Sitting (Pre-Dialysis)165/99 mmHgBP Sitting (Post-Dialysis)158/82 mmHg* Concurrent Access: false * AV Fistula Upper Arm (Left) Arterial Sitting Heart Rate Pre-Zaggvrlg27 BPMSitting Heart Rate Post-Gybpqjnt92 BPM Temperature Pre-Uwdgtuxo64.2 degFTemperature Post-Hhwrnsey36.2 degFNovember 2023[facility] Ylznxbrgm2866-26-53N19:10:00.000Z 7025-03-10I13:14:14.000ZBP Sitting (Pre-Dialysis)166/103 mmHgBP Sitting (Post-Dialysis)181/118 mmHg* Concurrent Access: false * AV Fistula Upper Arm (Left) Arterial BP Standing (Pre-Dialysis)187/109 mmHgBP Standing (Post-Dialysis)195/109 mmHg Sitting Heart Rate Pre-Huzpokzx05 BPMSitting Heart Rate Post-Bkmsvfht41 BPM Standing Heart Rate Pre-Rtosmwug86 BPMStanding Heart Rate Post-Trputomc52 BPM Temperature Pre-Mtfeohie59.4 degFTemperature Post-Pisofvzb28.6 degFNovember 2023[facility] Tbmkwhyin5007-07-14E27:11:11.000Z 9699-29-02W59:55:15.000ZBP Sitting (Pre-Dialysis)162/100 mmHgBP Sitting (Post-Dialysis)155/75 mmHg* Concurrent Access: false * AV Fistula Upper Arm (Left) Arterial Sitting Heart Rate Pre-Vaoigogi97 BPMBP Standing (Post-Dialysis)181/102 mmHg Temperature Pre-Sjhsfuol38 degFSitting Heart Rate Post-Jyqiepca43 BPMStanding Heart Rate Post-Gwkzafcm29 BPMTemperature Post-Eapxtvwp10.8 degFNovember 2023[facility] Fsqhwbura9882-15-61X22:17:10.000Z 4961-82-38I64:33:13.000ZBP Sitting (Pre-Dialysis)152/91 mmHgBP Sitting (Post-Dialysis)151/79 mmHg* Concurrent Access: false * AV Fistula Upper Arm (Left) Arterial Sitting Heart Rate Pre-Tfqczaar41 BPMBP Standing (Post-Dialysis)147/75 mmHg Temperature Pre-Vkeqykfd01.2 degFSitting Heart Rate Post-Htrwaytk17 BPMStanding Heart Rate Post-Dhglhwto77 BPMTemperature Post-Lhtbvqph30.8 degFNovember 2023[facility] Tmnxndwnj6823-07-08R97:10:10.000Z 6835-51-75D67:42:14.000ZBP Sitting (Pre-Dialysis)170/101 mmHgBP Sitting (Post-Dialysis)160/85 mmHg* Concurrent Access: false * AV Fistula Upper Arm (Left) Arterial Sitting Heart Rate Pre-Mbwodvsj98 BPMSitting Heart Rate Post-Nzspexbz20 BPM Temperature Pre-Nipgwbre69.9 degFTemperature Post-Tpahtwdh13.7 degFNovember 2023[facility] Lkwolhtio9235-96-34G55:12:10.000Z 0661-44-00G18:59:13.000ZBP Sitting (Pre-Dialysis)156/100 mmHgBP Sitting (Post-Dialysis)159/89 mmHg* Concurrent Access: false * AV Fistula Upper Arm (Left) Arterial Sitting Heart Rate Pre-Tdaixfmr45 BPMBP Standing (Post-Dialysis)154/92 mmHg Temperature Pre-Ushcnmna55.2 degFSitting Heart Rate Post-Vcyjvmgb22 BPMStanding Heart Rate Post-Cvglqnjk552 BPMTemperature Post-Rleehtdw59.8 degFOctober 2023[facility] Bwfrhgnzp1840-90-61D10:13:10.000Z 3943-86-31Y15:03:13.000ZBP Sitting (Pre-Dialysis)174/96 mmHgBP Sitting (Post-Dialysis)158/78 mmHg* Concurrent Access: false * AV Fistula Upper Arm (Left) Arterial Sitting Heart Rate Pre-Jawrulvr23 BPMSitting Heart Rate Post-Dqsyksgw99 BPM Temperature Pre-Mlxwgxhb21 degFTemperature Post-Nkyrnkpa78 degFOctober 2023 [facility] Znflrmjsp8870-85-17P74:10:00.581P7543-67-40Q18:06:02.000Z BP Sitting (Pre-Dialysis)190/115 mmHgBP Sitting (Post-Dialysis)156/89 mmHg* Concurrent Access: false * AV Fistula Upper Arm (Left) Arterial Sitting Heart Rate Pre-Umuxajmw94 BPMSitting Heart Rate Post-Jkwqucgf76 BPM Temperature Pre-Imlboadw24.4 degFTemperature Post-Sjpifgij15.2 degFOctober 2023[facility] Talvvydhq8325-32-13F02:09:10.000Z 5350-52-02Q26:00:49.000ZBP Sitting (Pre-Dialysis)150/75 mmHgBP Sitting (Post-Dialysis)142/83 mmHg* Concurrent Access: false * AV Fistula Upper Arm (Left) Arterial Sitting Heart Rate Pre-Lspalhoq44 BPMSitting Heart Rate Post-Zcdoumvf10 BPM Temperature Pre-Fdkhtnbr50 degFTemperature Post-Lvjfabyf83 degFOctober 2023 [facility] Nvtoahphn5517-54-74Q62:07:00.376C1745-27-95G71:43:15.000Z BP Sitting (Pre-Dialysis)178/109 mmHgBP Sitting (Post-Dialysis)161/104 mmHg* Concurrent Access: false * AV Fistula Upper Arm (Left) Arterial BP Standing (Pre-Dialysis)169/109 mmHgSitting Heart Rate Post-Bhmqpxzx95 BPM Sitting Heart Rate Pre-Bngknmla55 BPMTemperature Post-Mwpxbpkf69.2 degFStanding Heart Rate Pre-Ewoekiex30 BPMTemperature Pre-Mlpprjbu67.3 degFOctober 2023 [facility] Yvtdspwok4275-83-63F95:16:10.016V4441-46-55E40:10:14.000Z BP Sitting (Pre-Dialysis)164/97 mmHgBP Sitting (Post-Dialysis)179/71 mmHg* Concurrent Access: false * AV Fistula Upper Arm (Left) Arterial Sitting Heart Rate Pre-Ssltasli91 BPMSitting Heart Rate Post-Jcesjdxq91 BPM Temperature Pre-Cngapqog09.2 degFTemperature Post-Tcptbokt45.2 degFOctober 2023[facility] Fexfjgtnn2976-66-31J14:22:15.000Z 9958-62-58J29:16:44.000ZBP Sitting (Pre-Dialysis)156/99 mmHgBP Sitting (Post-Dialysis)149/83 mmHg* Concurrent Access: false * AV Fistula Upper Arm (Left) Arterial Sitting Heart Rate Pre-Aethncjg77 BPMSitting Heart Rate Post-Jluawdde65 BPM Temperature Pre-Ivdnewso59.2 degFTemperature Post-Kdsldfto06.2 degFOctober 2023[facility] Vzzaizzku3371-60-48M69:14:16.000Z 3174-23-84L45:50:19.000ZBP Sitting (Pre-Dialysis)156/100 mmHgBP Sitting (Post-Dialysis)140/85 mmHg* Concurrent Access: false * AV Fistula Upper Arm (Left) Arterial Sitting Heart Rate Pre-Nusspxza69 BPMBP Standing (Post-Dialysis)141/90 mmHg Temperature Pre-Atzhitkw60.2 degFSitting Heart Rate Post-Aypcuhvz31 BPMStanding Heart Rate Post-Blgpptfx136 BPMTemperature Post-Yzximmka07.2 degFOctober 2023[facility] Xlajlurwc2041-29-30E64:15:00.000Z 5066-61-80P32:12:15.000ZBP Sitting (Pre-Dialysis)157/97 mmHgBP Sitting (Post-Dialysis)150/104 mmHg* Concurrent Access: false * AV Fistula Upper Arm (Left) Arterial BP Standing (Pre-Dialysis)167/98 mmHgBP Standing (Post-Dialysis)143/97 mmHg Sitting Heart Rate Pre-Wjbcjldb45 BPMSitting Heart Rate Post-Vqhlpexq928 BPM Standing Heart Rate Pre-Edzwmyfz86 BPMStanding Heart Rate Post-Ozvrfgev499 BPM Temperature Pre-Wkxvtarc11.8 degFTemperature Post-Sdqtwmsf14.5 degFOctober 2023[facility] Wtstbbxmg6673-74-40F35:08:10.000Z 1755-10-51M51:08:14.000ZBP Sitting (Pre-Dialysis)150/85 mmHgBP Sitting (Post-Dialysis)149/78 mmHg* Concurrent Access: false * AV Fistula Upper Arm (Left) Arterial BP Standing (Pre-Dialysis)158/87 mmHgSitting Heart Rate Post-Ckiwnuft59 BPM Sitting Heart Rate Pre-Gjzmueku15 BPMTemperature Post-Sfzragwp78.2 degFStanding Heart Rate Pre-Eqzvgcae83 BPMTemperature Pre-Lcmqbhui83.4 degFOctober 2023 [facility] Zdkrvhxlh7952-60-12F20:37:15.602V6480-42-60P12:42:19.000Z BP Sitting (Pre-Dialysis)123/86 mmHgBP Sitting (Post-Dialysis)107/60 mmHg* Concurrent Access: false * AV Fistula Upper Arm (Left) Arterial Sitting Heart Rate Pre-Qkkyppqg83 BPMBP Standing (Post-Dialysis)123/65 mmHg Temperature Pre-Uojyglvu66.2 degFSitting Heart Rate Post-Zubzlwix87 BPMStanding Heart Rate Post-Gjfvqbgo85 BPMTemperature Post-Qydhoqrb49.2 degFOctober 2023 [facility] Juxnhqlzo1665-99-43G56:12:10.554C5094-56-41D33:04:14.000Z BP Sitting (Pre-Dialysis)149/91 mmHgBP Sitting (Post-Dialysis)121/79 mmHg* Concurrent Access: false * AV Fistula Upper Arm (Left) Arterial Sitting Heart Rate Pre-Drsinzsp10 BPMSitting Heart Rate Post-Tohlokgc63 BPM Temperature Pre-Bpjmqhom73.2 degFTemperature Post-Zgrtxuod65.2 degFOctober 2023[facility] Wruevmtyf2140-91-95G29:08:00.000Z 2096-59-94X63:48:13.000ZBP Sitting (Pre-Dialysis)162/101 mmHgBP Sitting (Post-Dialysis)132/74 mmHg* Concurrent Access: false * AV Fistula Upper Arm (Left) Arterial Sitting Heart Rate Pre-Ypfjqhyf14 BPMBP Standing (Post-Dialysis)122/93 mmHg Temperature Pre-Ngkftvjn92.8 degFSitting Heart Rate Post-Caaonncc13 BPMStanding Heart Rate Post-Bwlooaqg426 BPMTemperature Post-Kamdomae92.2 degFOctober 2023[facility] Rxivtngwg8626-45-74N90:20:10.000Z 1006-32-63J28:23:14.000ZBP Sitting (Pre-Dialysis)142/84 mmHgBP Sitting (Post-Dialysis)128/80 mmHg* Concurrent Access: false * AV Fistula Upper Arm (Left) Arterial Sitting Heart Rate Pre-Edzgxicn32 BPMSitting Heart Rate Post-Fpoxjiln98 BPM Temperature Pre-Exwwqaxw71 degFTemperature Post-Pqhiogox93 degFSeptember 2023[facility] Hdgzxoxwp9640-57-16K29:10:00.000Z 8460-58-54S02:13:14.000ZBP Sitting (Pre-Dialysis)146/85 mmHgBP Sitting (Post-Dialysis)151/93 mmHg* Concurrent Access: false * AV Fistula Upper Arm (Left) Arterial Sitting Heart Rate Pre-Eognaajq09 BPMBP Standing (Post-Dialysis)128/88 mmHg Temperature Pre-Xaslwzhf01.3 degFSitting Heart Rate Post-Fhavckwk96 BPMStanding Heart Rate Post-Ywdtynmh55 BPMTemperature Post-Jawjhzpy83.3 degFSeptember 2023[facility] Povjpbjth6791-69-84K07:03:10.000Z 4947-57-09M45:58:13.000ZBP Sitting (Pre-Dialysis)162/106 mmHgBP Sitting (Post-Dialysis)132/87 mmHg* Concurrent Access: false * AV Fistula Upper Arm (Left) Arterial Sitting Heart Rate Pre-Cgrrulbk03 BPMSitting Heart Rate Post-Hqkeehlg53 BPM Temperature Pre-Hshofwzm42 degFTemperature Post-Uhererhd89.2 degFSeptember 2023[facility] Fmtbtcoly5445-61-21Z94:14:00.000Z 3354-71-88Z73:19:14.000ZBP Sitting (Pre-Dialysis)147/46 mmHgBP Sitting (Post-Dialysis)121/61 mmHg* Concurrent Access: false * AV Fistula Upper Arm (Left) Arterial Sitting Heart Rate Pre-Mrjnjlyy26 BPMBP Standing (Post-Dialysis)140/89 mmHg Temperature Pre-Ymzjnmik02 degFSitting Heart Rate Post-Cxwgeamy40 BPMStanding Heart Rate Post-Uvytogtt59 BPMTemperature Post-Wttxzixq32.6 degFSeptember 2023[facility] Ojxojdcul4468-06-34V03:15:10.000Z 1748-40-49A72:31:14.000ZBP Sitting (Pre-Dialysis)148/97 mmHgBP Sitting (Post-Dialysis)145/93 mmHg* Concurrent Access: false * AV Fistula Upper Arm (Left) Arterial Sitting Heart Rate Pre-Dtvlllte32 BPMBP Standing (Post-Dialysis)149/96 mmHg Temperature Pre-Atfyujdc34.2 degFSitting Heart Rate Post-Pilnirqi66 BPMStanding Heart Rate Post-Tpdhnwsn05 BPMTemperature Post-Uepjoztr43.6 degFSeptember 2023[facility] Zxjuqyqns3956-33-04H86:18:10.000Z 6768-97-70L30:13:00.000ZBP Sitting (Pre-Dialysis)152/94 mmHgBP Sitting (Post-Dialysis)123/101 mmHg* Concurrent Access: false * AV Fistula Upper Arm (Left) Arterial Sitting Heart Rate Pre-Ntcevrpm28 BPMBP Standing (Post-Dialysis)139/99 mmHg Temperature Pre-Oevrugot22.2 degFSitting Heart Rate Post-Xrizflku016 BPMStanding Heart Rate Post-Mnevktdi16 BPMTemperature Post-Hljyodza20.8 degFSeptember 2023[facility] Jrrrerqtx2788-89-67W36:17:10.000Z 8580-93-75A10:10:14.000ZBP Sitting (Pre-Dialysis)145/87 mmHgBP Sitting (Post-Dialysis)135/85 mmHg* Concurrent Access: false * AV Fistula Upper Arm (Left) Arterial Sitting Heart Rate Pre-Mqpjnzlr39 BPMSitting Heart Rate Post-Zbizowya72 BPM Temperature Pre-Lxjjajji64.2 degFTemperature Post-Nsoeehzy82.8 degFSeptember 2023[facility] Gnsfbntte6751-15-50D88:17:00.000Z 4744-36-38W73:19:14.000ZBP Sitting (Pre-Dialysis)152/93 mmHgBP Sitting (Post-Dialysis)134/79 mmHg* Concurrent Access: false * AV Fistula Upper Arm (Left) Arterial Sitting Heart Rate Pre-Diabmiyo05 BPMBP Standing (Post-Dialysis)113/91 mmHg Temperature Pre-Qdehwkgz54.2 degFSitting Heart Rate Post-Puikvelh52 BPMStanding Heart Rate Post-Ahdkmlxv81 BPMTemperature Post-Rqzlxlvv06.6 degFSeptember 2023[facility] Bxearadqm0913-71-27L46:27:10.000Z 8260-68-26I68:17:14.000ZBP Sitting (Pre-Dialysis)164/95 mmHgBP Sitting (Post-Dialysis)129/76 mmHg* Concurrent Access: false * AV Fistula Upper Arm (Left) Arterial Sitting Heart Rate Pre-Sklsghzf01 BPMBP Standing (Post-Dialysis)138/113 mmHg Temperature Pre-Rpiwqvuq95 degFSitting Heart Rate Post-Azoysjwj02 BPMStanding Heart Rate Post-Ehsoqrgu135 BPMTemperature Post-Kxbqtkfv55.5 degFSeptember 2023[facility] Cgdzdwysu9575-32-29E61:31:11.000Z 0480-24-65B02:33:16.000ZBP Sitting (Pre-Dialysis)154/100 mmHgBP Sitting (Post-Dialysis)165/96 mmHg* Concurrent Access: false * AV Fistula Upper Arm (Left) Arterial Sitting Heart Rate Pre-Htcoeiri11 BPMBP Standing (Post-Dialysis)137/91 mmHg Temperature Pre-Lkgwqszg26.2 degFSitting Heart Rate Post-Degataeg79 BPMStanding Heart Rate Post-Erxnrtec21 BPMTemperature Post-Btzvyieg39.5 degFSeptember 2023[facility] Iprkrbijw3065-81-55U66:22:00.000Z 1727-60-10G90:12:00.000ZBP Sitting (Pre-Dialysis)142/88 mmHgBP Sitting (Post-Dialysis)10/67 mmHg* Concurrent Access: false * AV Fistula Upper Arm (Left) Arterial Sitting Heart Rate Pre-Qxregcha49 BPMSitting Heart Rate Post-Klvsnqiw04 BPM Temperature Pre-Mjebdplf68.6 degFTemperature Post-Enqiykdp50.4 degFSeptember 2023[facility] Ajxbwizco3184-64-92T29:09:00.000Z 0853-63-10B50:30:22.000ZBP Sitting (Pre-Dialysis)163/85 mmHgBP Sitting (Post-Dialysis)156/144 mmHg* Concurrent Access: false * AV Fistula Upper Arm (Left) Arterial BP Standing (Pre-Dialysis)164/100 mmHgBP Standing (Post-Dialysis)122/47 mmHg Sitting Heart Rate Pre-Refecckt08 BPMSitting Heart Rate Post-Fkyksycj91 BPM Standing Heart Rate Pre-Wmvahfhl51 BPMStanding Heart Rate Post-Zfbobpsq430 BPM Temperature Pre-Lhoyqmtu12.4 degFTemperature Post-Qdvdhszb48.6 degFSeptember 2023[facility] Eqxpkefzo1735-36-79F18:18:40.000Z 7757-43-30J18:17:44.000ZBP Sitting (Pre-Dialysis)123/107 mmHgBP Sitting (Post-Dialysis)124/77 mmHg* Concurrent Access: false * AV Fistula Upper Arm (Left) Arterial Sitting Heart Rate Pre-Gxvnvuym50 BPMBP Standing (Post-Dialysis)105/72 mmHg Temperature Pre-Wrzfwsoz76.2 degFSitting Heart Rate Post-Ztxtirbp97 BPMStanding Heart Rate Post-Emtznzht64 BPMTemperature Post-Kbvqmqws50.8 degFAugust 2023 [facility] Pboizetba7651-84-31I47:12:00.417K6660-72-93I11:10:00.000Z BP Sitting (Pre-Dialysis)163/94 mmHgBP Sitting (Post-Dialysis)115/75 mmHg* Concurrent Access: false * AV Fistula Upper Arm (Left) Arterial Sitting Heart Rate Pre-Tywpvqbb03 BPMBP Standing (Post-Dialysis)121/78 mmHg Temperature Pre-Kqcbipqs21.2 degFSitting Heart Rate Post-Pjqlikpt99 BPMStanding Heart Rate Post-Rxgqjvrx76 BPMTemperature Post-Trhniefj69.5 degFAugu2023 [facility] Crcqbirtx6295-49-12G57:50:00.841I7912-01-73H83:29:22.000Z BP Sitting (Pre-Dialysis)171/99 mmHgBP Sitting (Post-Dialysis)136/68 mmHg* Concurrent Access: false * AV Fistula Upper Arm (Left) Arterial Sitting Heart Rate Pre-Pgyvazcv23 BPMSitting Heart Rate Post-Qzdrfink02 BPM Temperature Pre-Exmkpxpu26.3 degFTemperature Post-Xkhmdtew71.5 degFAugust 2023[facility] Zgbklpwga3153-36-58Z28:14:17.000Z 4441-72-64K87:00:21.000ZBP Sitting (Pre-Dialysis)133/86 mmHgBP Sitting (Post-Dialysis)128/74 mmHg* Concurrent Access: false * AV Fistula Upper Arm (Left) Arterial Sitting Heart Rate Pre-Auptjmos02 BPMBP Standing (Post-Dialysis)129/108 mmHg Temperature Pre-Ywloxwed48.2 degFSitting Heart Rate Post-Gvrbunli72 BPMStanding Heart Rate Post-Fxmkthhh547 BPMTemperature Post-Lxdgzste05.3 degFAugust 2023 [facility] Gbmnwfdrj3038-02-13W45:19:00.845Q5025-16-12X86:02:39.000Z BP Sitting (Pre-Dialysis)175/99 mmHgBP Sitting (Post-Dialysis)140/98 mmHg* Concurrent Access: false * AV Fistula Upper Arm (Left) Arterial Sitting Heart Rate Pre-Sofrjeek51 BPMBP Standing (Post-Dialysis)145/116 mmHg Temperature Pre-Sfmjzuyg56 degFSitting Heart Rate Post-Ysgixquo22 BPMStanding Heart Rate Post-Dskonjrh807 BPMTemperature Post-Brqszqfn05 degFAugust 2023 [facility] Imctchaam4244-59-31R41:14:35.163J6102-63-47S71:07:55.000Z BP Sitting (Pre-Dialysis)149/95 mmHgBP Sitting (Post-Dialysis)154/91 mmHg* Concurrent Access: false * AV Fistula Upper Arm (Left) Arterial Sitting Heart Rate Pre-Gphorxrt07 BPMBP Standing (Post-Dialysis)161/104 mmHg Temperature Pre-Utuvyaul86.2 degFSitting Heart Rate Post-Lgxnemom743 BPMStanding Heart Rate Post-Iuujztyh07 BPMTemperature Post-Inqoyaeg18.2 degFAugust 2023 [facility] Mblzbcpqr9535-93-64P68:13:35.031K7554-41-70Y78:21:39.000Z BP Sitting (Pre-Dialysis)149/93 mmHgBP Sitting (Post-Dialysis)156/102 mmHg* Concurrent Access: false * AV Fistula Upper Arm (Left) Arterial Sitting Heart Rate Pre-Becvbnnk11 BPMBP Standing (Post-Dialysis)157/95 mmHg Temperature Pre-Ruhkuttt43.5 degFSitting Heart Rate Post-Gtnmhbhy53 BPMStanding Heart Rate Post-Jvazbown972 BPMTemperature Post-Uifqnjeq73.4 degFAugust 2023 [facility] Cjuwzshsn8211-23-72K00:12:30.134G8487-79-04D00:02:35.000Z BP Sitting (Pre-Dialysis)133/88 mmHgBP Sitting (Post-Dialysis)137/87 mmHg* Concurrent Access: false * AV Fistula Upper Arm (Left) Arterial Sitting Heart Rate Pre-Rdvcpjkl88 BPMBP Standing (Post-Dialysis)134/85 mmHg Temperature Pre-Laojcltd66.2 degFSitting Heart Rate Post-Jfbogvnc78 BPMStanding Heart Rate Post-Dzdwgsak40 BPMTemperature Post-Rlwndyaw47.2 degFAugust 2023 [facility] Xpzfekczb5271-76-95O25:09:00.152T6978-64-24N35:07:38.000Z BP Sitting (Pre-Dialysis)137/110 mmHgBP Sitting (Post-Dialysis)158/93 mmHg* Concurrent Access: false * AV Fistula Upper Arm (Left) Arterial Sitting Heart Rate Pre-Rpsoytuu63 BPMBP Standing (Post-Dialysis)130/97 mmHg Temperature Pre-Ypeddipt66.3 degFSitting Heart Rate Post-Epdcqwwt88 BPMStanding Heart Rate Post-Docqcjwc68 BPMTemperature Post-Frostksp28.6 degFAugust 2023 [facility] Pkabjgzdj8703-47-82T98:22:30.015X8451-92-10D16:22:35.000Z BP Sitting (Pre-Dialysis)121/68 mmHgBP Sitting (Post-Dialysis)122/76 mmHg* Concurrent Access: false * AV Fistula Upper Arm (Left) Arterial Sitting Heart Rate Pre-Kfujcoca43 BPMSitting Heart Rate Post-Krmwmsko32 BPM Temperature Pre-Lruuzfin71.2 degFTemperature Post-Tlbcsqtp72.6 degFAugust 2023[facility] Daqmrlbvp0338-61-09P69:04:00.000Z 7600-32-88C65:11:34.000ZBP Sitting (Pre-Dialysis)155/114 mmHgBP Sitting (Post-Dialysis)146/86 mmHg* Concurrent Access: false * AV Fistula Upper Arm (Left) Arterial Sitting Heart Rate Pre-Rlhrqqfd55 BPMBP Standing (Post-Dialysis)125/81 mmHg Temperature Pre-Besmjgwg34.5 degFSitting Heart Rate Post-Snudnklw89 BPMStanding Heart Rate Post-Lcpuoqvr83 BPMTemperature Post-Tdhxwagf19.5 degFAugust 2023 [facility] Sezalfuxn2776-14-47L87:18:29.941P6139-22-92D85:16:33.000Z BP Sitting (Pre-Dialysis)137/68 mmHgBP Sitting (Post-Dialysis)144/89 mmHg* Concurrent Access: false * AV Fistula Upper Arm (Left) Arterial Sitting Heart Rate Pre-Oxzaplus49 BPMSitting Heart Rate Post-Edvaxrly38 BPM Temperature Pre-Dfqjsdab44.2 degFTemperature Post-Xsvrcpxl64.2 degFAugust 2023[facility] Scvdkuuby7642-37-62Z26:20:29.000Z 8573-89-88K22:24:34.000ZBP Sitting (Pre-Dialysis)163/100 mmHgBP Sitting (Post-Dialysis)143/99 mmHg* Concurrent Access: false * AV Fistula Upper Arm (Left) Arterial Sitting Heart Rate Pre-Ugnqetjn79 BPMSitting Heart Rate Post-Cqrudodz02 BPM Temperature Pre-Xfhnkecq22.2 degFTemperature Post-Hfstokrw58.4 degFAugust 2023[facility] Ejkpybrjk7523-22-09A62:45:40.000Z 2932-95-27Q14:37:42.000ZBP Sitting (Pre-Dialysis)155/94 mmHgBP Sitting (Post-Dialysis)118/81 mmHg* Concurrent Access: false * AV Fistula Upper Arm (Left) Arterial Sitting Heart Rate Pre-Lixyplqo21 BPMBP Standing (Post-Dialysis)133/97 mmHg Temperature Pre-Glpwadfz46.2 degFSitting Heart Rate Post-Ihowifqn64 BPMStanding Heart Rate Post-Bjpexjhd92 BPMTemperature Post-Qgsfollx76.7 degFAugust 2023 [facility] Ykwnvmkkx7399-45-29Y03:06:00.646C8337-71-06H27:09:45.000Z BP Sitting (Pre-Dialysis)171/100 mmHgBP Sitting (Post-Dialysis)152/99 mmHg* Concurrent Access: false * AV Fistula Upper Arm (Left) Arterial Sitting Heart Rate Pre-Ghjdmwos13 BPMBP Standing (Post-Dialysis)150/90 mmHg Temperature Pre-Juzmwswm65.7 degFSitting Heart Rate Post-Odipvzbc76 BPMStanding Heart Rate Post-Ujbicvtu564 BPMTemperature Post-Dcrkqsdw24.3 degFJuly 2023 [facility] Wcejzxlil8747-04-26S96:22:00.035N8582-01-62C62:27:02.000Z BP Sitting (Pre-Dialysis)169/87 mmHgBP Sitting (Post-Dialysis)183/95 mmHg* Concurrent Access: false * AV Fistula Upper Arm (Left) Arterial Sitting Heart Rate Pre-Jzigxvhf64 BPMBP Standing (Post-Dialysis)153/94 mmHg Temperature Pre-Cghohrhf92.8 degFSitting Heart Rate Post-Ypechvrx37 BPMStanding Heart Rate Post-Nzinjoeg83 BPMTemperature Post-Iilzdivn49.2 degFJuly 2023[facility] Dhikarcrl1030-04-34Q29:10:00.988A4521-72-15G15:06:42.000ZBP Sitting (Pre-Dialysis)160/100 mmHgBP Sitting (Post-Dialysis)166/80 mmHg* Concurrent Access: false * AV Fistula Upper Arm (Left) Arterial Sitting Heart Rate Pre-Thbnpsrb94 BPMBP Standing (Post-Dialysis)133/84 mmHg Temperature Pre-Lsvqamyl62.2 degFSitting Heart Rate Post-Xjykfnfk04 BPMStanding Heart Rate Post-Wkwtedps40 BPMTemperature Post-Skpijllu19.2 degFJuly 2023[facility] Grhynzsfr2813-52-01N60:14:00.731G1055-70-37O89:32:45.000ZBP Sitting (Pre-Dialysis)157/91 mmHgBP Sitting (Post-Dialysis)142/95 mmHg* Concurrent Access: false * AV Fistula Upper Arm (Left) Arterial Sitting Heart Rate Pre-Mjmunjnb26 BPMBP Standing (Post-Dialysis)138/98 mmHg Temperature Pre-Yihqgpqx56.1 degFSitting Heart Rate Post-Xiyaolgg22 BPMStanding Heart Rate Post-Blfrqvzc98 BPMTemperature Post-Fqpxkekw06.8 degFJuly 2023[facility] Bbegbdpkd8053-03-65C44:21:42.457J8462-83-17D17:15:45.000ZBP Sitting (Pre-Dialysis)164/103 mmHgBP Sitting (Post-Dialysis)128/78 mmHg* Concurrent Access: false * AV Fistula Upper Arm (Left) Arterial BP Standing (Pre-Dialysis)150/90 mmHgBP Standing (Post-Dialysis)110/78 mmHg Sitting Heart Rate Pre-Crhgrpla91 BPMSitting Heart Rate Post-Yksvyokk69 BPM Standing Heart Rate Pre-Mggxgtge66 BPMStanding Heart Rate Post-Zfmhetlp23 BPM Temperature Pre-Ddcfddcs26.8 degFTemperature Post-Dfceyiwr87.6 degFJuly 2023 [facility] Dlzmynkws2627-78-17M52:14:00.495T8368-42-15C20:18:28.000Z BP Sitting (Pre-Dialysis)140/85 mmHgBP Sitting (Post-Dialysis)143/86 mmHg* Concurrent Access: false * AV Fistula Upper Arm (Left) Arterial BP Standing (Pre-Dialysis)143/86 mmHgBP Standing (Post-Dialysis)129/75 mmHg Sitting Heart Rate Pre-Rjrlchse98 BPMSitting Heart Rate Post-Sxfohwxq87 BPM Standing Heart Rate Pre-Vhkkolyn23 BPMStanding Heart Rate Post-Zoohxpua52 BPM Temperature Pre-Yhsqywkb06.5 degFTemperature Post-Asephfqq72.8 degFJuly 2023 [facility] Tsfhnunwn7542-44-26Y72:07:00.244M5089-66-65O79:43:31.000Z BP Sitting (Pre-Dialysis)163/103 mmHgBP Sitting (Post-Dialysis)149/96 mmHg* Concurrent Access: false * AV Fistula Upper Arm (Left) Arterial Sitting Heart Rate Pre-Oqwserxq02 BPMBP Standing (Post-Dialysis)147/87 mmHg Temperature Pre-Afznprqj62.8 degFSitting Heart Rate Post-Becsqswj57 BPMStanding Heart Rate Post-Vgbfaebk61 BPMTemperature Post-Xxscwvul27.6 degFJuly 2023[facility] Yjgrlenoh5438-66-26P15:04:00.106J9120-34-90Y11:13:32.000ZBP Sitting (Pre-Dialysis)167/106 mmHgBP Sitting (Post-Dialysis)169/101 mmHg* Concurrent Access: false * AV Fistula Upper Arm (Left) Arterial Sitting Heart Rate Pre-Sjjkkoxg97 BPMBP Standing (Post-Dialysis)157/105 mmHg Temperature Pre-Mettiekv05.6 degFSitting Heart Rate Post-Rzgdvzwo529 BPMStanding Heart Rate Post-Egxwirga542 BPMTemperature Post-Emiveqgh46.4 degFJuly 2023 [facility] Ltinfkqme2217-97-00X37:25:11.022E3138-29-74K37:49:14.000Z BP Sitting (Pre-Dialysis)160/103 mmHgBP Sitting (Post-Dialysis)139/98 mmHg* Concurrent Access: false * AV Fistula Upper Arm (Left) Arterial Sitting Heart Rate Pre-Ifuzhiub19 BPMSitting Heart Rate Post-Xmwrvpki578 BPM Temperature Pre-Qxpaezgt00.2 degFTemperature Post-Jhfflxxj56.2 degFJuly 2023 [facility] Umzhwavja4190-14-87M69:24:00.873I6108-26-03B64:24:14.000Z BP Sitting (Pre-Dialysis)167/100 mmHgBP Sitting (Post-Dialysis)144/92 mmHg* Concurrent Access: false * AV Fistula Upper Arm (Left) Arterial BP Standing (Pre-Dialysis)172/107 mmHgBP Standing (Post-Dialysis)140/96 mmHg Sitting Heart Rate Pre-Bbojleei70 BPMSitting Heart Rate Post-Ednyfswh52 BPM Standing Heart Rate Pre-Yjgryonu44 BPMStanding Heart Rate Post-Dthykytj317 BPM Temperature Pre-Nxhirjow46.6 degFTemperature Post-Ctwvlvar61.9 degFJuly 2023 [facility] Nenfgotyl1681-02-49E42:34:00.468K2083-05-46L73:35:23.000Z BP Sitting (Pre-Dialysis)157/93 mmHgBP Sitting (Post-Dialysis)131/82 mmHg* Concurrent Access: false * AV Fistula Upper Arm (Left) Arterial Sitting Heart Rate Pre-Jukvlycv15 BPMBP Standing (Post-Dialysis)125/93 mmHg Temperature Pre-Xalgrrno53.7 degFSitting Heart Rate Post-Lgiylozr24 BPMStanding Heart Rate Post-Lehtbiut36 BPMTemperature Post-Mbfcdowi46.5 degFJuly 2023[facility] Bcqqwsxep6637-98-22P74:56:00.000L0777-72-67C45:18:32.000ZBP Sitting (Pre-Dialysis)174/108 mmHgBP Sitting (Post-Dialysis)151/78 mmHg* Concurrent Access: false * AV Fistula Upper Arm (Left) Arterial Sitting Heart Rate Pre-Tdtkzowp21 BPMBP Standing (Post-Dialysis)154/98 mmHg Temperature Pre-Oeowwxrl26.6 degFSitting Heart Rate Post-Dlvnvyzd51 BPMStanding Heart Rate Post-Fyfjrbxx61 BPMTemperature Post-Qsnsxhgd75.3 degFJuly 2023[facility] Rfrvgebqd8569-53-01H96:12:28.373J6849-51-02F62:02:32.000ZBP Sitting (Pre-Dialysis)164/101 mmHgBP Sitting (Post-Dialysis)160/102 mmHg* Concurrent Access: false * AV Fistula Upper Arm (Left) Arterial Sitting Heart Rate Pre-Rabgzrcf40 BPMBP Standing (Post-Dialysis)139/97 mmHg Temperature Pre-Mlscdvnh56.5 degFSitting Heart Rate Post-Mkfsvvlu66 BPMStanding Heart Rate Post-Ozpbuxtr13 BPMTemperature Post-Boajwkyc75.2 degFJuly 2023[facility] Gatptxysy1973-57-37H37:10:26.836A5770-58-67Y89:45:30.000ZBP Sitting (Pre-Dialysis)146/96 mmHgBP Sitting (Post-Dialysis)154/94 mmHg* Concurrent Access: false * AV Fistula Upper Arm (Left) Arterial Sitting Heart Rate Pre-Kmqaluwy86 BPMSitting Heart Rate Post-Oeutxqeh25 BPM Temperature Pre-Zmbrmfxr47.2 degFTemperature Post-Bhgxwflu33.2 degFJune 2023 [facility] Rwzdurfcv3472-97-01I61:37:56.057S4724-91-03P97:57:58.000Z BP Sitting (Pre-Dialysis)186/110 mmHgBP Sitting (Post-Dialysis)166/122 mmHg* Concurrent Access: false * AV Fistula Upper Arm (Left) Arterial Sitting Heart Rate Pre-Aopexdgp52 BPMBP Standing (Post-Dialysis)158/109 mmHg Temperature Pre-Uydzqwiz81.5 degFSitting Heart Rate Post-Wsfndymd26 BPMStanding Heart Rate Post-Znfjkdfy04 BPMTemperature Post-Bewsjwat84.5 degFJune 2023[facility] Gzhsdsxde1431-56-31D98:17:56.447H1264-09-12M97:01:59.000ZBP Sitting (Pre-Dialysis)160/100 mmHgBP Sitting (Post-Dialysis)177/85 mmHg* Concurrent Access: false * AV Fistula Upper Arm (Left) Arterial Sitting Heart Rate Pre-Dqrawtme49 BPMBP Standing (Post-Dialysis)140/83 mmHg Temperature Pre-Rndxyarl95.4 degFSitting Heart Rate Post-Jwwygqus104 BPMStanding Heart Rate Post-Cxaklwwp585 BPMTemperature Post-Hgdloksb03.3 degFJune 2023 [facility] Fgvnujefk3022-85-06X30:13:56.030Z4991-95-85P51:07:59.000Z BP Sitting (Pre-Dialysis)157/101 mmHgBP Sitting (Post-Dialysis)133/85 mmHg* Concurrent Access: false * AV Fistula Upper Arm (Left) Arterial Sitting Heart Rate Pre-Neqnisro92 BPMBP Standing (Post-Dialysis)122/83 mmHg Temperature Pre-Rdomoxcp85.2 degFSitting Heart Rate Post-Zdxldrll65 BPMStanding Heart Rate Post-Smwucghs57 BPMTemperature Post-Qgccbazp05.1 degFJune 2023[facility] Hqezctrjd0485-32-25H10:03:14.127O3912-86-24A78:00:19.000ZBP Sitting (Pre-Dialysis)175/105 mmHgBP Sitting (Post-Dialysis)142/106 mmHg* Concurrent Access: false * AV Fistula Upper Arm (Left) Arterial Sitting Heart Rate Pre-Aorzyohc67 BPMBP Standing (Post-Dialysis)144/95 mmHg Temperature Pre-Pyizzusg20.2 degFSitting Heart Rate Post-Weeblicw99 BPMStanding Heart Rate Post-Pxtklfxo40 BPMTemperature Post-Pwwueewa28.1 degFJune 2023[facility] Sewbocnii0959-37-46F58:02:15.571M2786-25-25U85:15:31.000ZBP Sitting (Pre-Dialysis)164/101 mmHgBP Sitting (Post-Dialysis)164/108 mmHg* Concurrent Access: false * AV Fistula Upper Arm (Left) Arterial Sitting Heart Rate Pre-Gpkijkah18 BPMSitting Heart Rate Post-Oexzotlz55 BPM Temperature Pre-Gjrprfhd11.8 degFTemperature Post-Yftqyhzd78.2 degFJune 2023 [facility] Viqdwwjpv0326-98-55X74:32:15.673O6934-38-41R24:19:19.000Z BP Sitting (Pre-Dialysis)157/95 mmHgBP Sitting (Post-Dialysis)130/80 mmHg* Concurrent Access: false * AV Fistula Upper Arm (Left) Arterial Sitting Heart Rate Pre-Wgqljttr73 BPMBP Standing (Post-Dialysis)148/99 mmHg Temperature Pre-Xqqfvaaf18.2 degFSitting Heart Rate Post-Maaoobik21 BPMStanding Heart Rate Post-Jxlewwwc63 BPMTemperature Post-Iphhgyaz25.2 degFJune 2023[facility] Gproofzdo4912-36-74F74:06:00.040Z3792-01-25E18:16:37.000ZBP Sitting (Pre-Dialysis)178/110 mmHgBP Sitting (Post-Dialysis)144/79 mmHg* Concurrent Access: false * AV Fistula Upper Arm (Left) Arterial Sitting Heart Rate Pre-Dhmynrzx00 BPMBP Standing (Post-Dialysis)150/87 mmHg Temperature Pre-Pgtgjcbn46.2 degFSitting Heart Rate Post-Atfploww41 BPMStanding Heart Rate Post-Tunrvwlh26 BPMTemperature Post-Ewpmwcjd69.6 degFJune 2023[facility] Dhdygxykc1710-82-35Y52:15:00.538L6184-29-24Z95:58:39.000ZBP Sitting (Pre-Dialysis)157/96 mmHgBP Sitting (Post-Dialysis)132/72 mmHg* Concurrent Access: false * AV Fistula Upper Arm (Left) Arterial Sitting Heart Rate Pre-Ikvqynyk62 BPMBP Standing (Post-Dialysis)125/68 mmHg Temperature Pre-Tpvqwppp30.2 degFSitting Heart Rate Post-Hjkwgyho30 BPMStanding Heart Rate Post-Cgtllvpn48 BPMTemperature Post-Fzsvcxix66.6 degFJune 2023[facility] Bssoyysjd3760-41-95V55:14:35.797Y7133-01-92Y89:12:39.000ZBP Sitting (Pre-Dialysis)173/102 mmHgBP Sitting (Post-Dialysis)149/98 mmHg* Concurrent Access: false * AV Fistula Upper Arm (Left) Arterial Sitting Heart Rate Pre-Fhwpqgkg32 BPMSitting Heart Rate Post-Biksrjkc68 BPM Temperature Pre-Jaablpdt66.2 degFTemperature Post-Taignkfs29.2 degFJune 2023 [facility] Wcbyiuttl2640-00-22X12:15:52.740B8461-04-02I69:09:55.000Z BP Sitting (Pre-Dialysis)163/103 mmHgBP Sitting (Post-Dialysis)142/97 mmHg* Concurrent Access: false * AV Fistula Upper Arm (Left) Arterial Sitting Heart Rate Pre-Hvtejfcn75 BPMBP Standing (Post-Dialysis)154/99 mmHg Temperature Pre-Htqfyymt00.1 degFSitting Heart Rate Post-Eghosvya582 BPMStanding Heart Rate Post-Uzldacwv998 BPMTemperature Post-Wwgpwjuc83 degFJune 2023[facility] Fscbmxlyg2020-47-78F70:14:51.922E8607-18-54B36:01:56.000ZBP Sitting (Pre-Dialysis)163/102 mmHgBP Sitting (Post-Dialysis)149/74 mmHg* Concurrent Access: false * AV Fistula Upper Arm (Left) Arterial Sitting Heart Rate Pre-Aqrczndo59 BPMBP Standing (Post-Dialysis)141/72 mmHg Temperature Pre-Wlqjuype82.4 degFSitting Heart Rate Post-Athohjpd27 BPMStanding Heart Rate Post-Zuyjvhdg61 BPMTemperature [facility]ff[facility]46.8 [facility] Txtshppxp8048-73-36G22:45:43.447H3255-58-09W37:14:46.000ZBP Sitting (Pre-Dialysis)155/90 mmHgBP Sitting (Post-Dialysis)144/93 mmHg* Concurrent Access: false * AV Fistula Upper Arm (Left) Arterial Sitting Heart Rate Pre-Fuixgolt47 BPMBP Standing (Post-Dialysis)137/83 mmHg Temperature Pre-Ufomswvg84.2 degFSitting Heart Rate Post-Puzlramq73 BPMStanding Heart Rate Post-Twsqtpis05 BPMTemperature Post-Kpszmbie39.9 [facility] 2023[facility] Eiftwttsx6839-81-45S26:14:13.033V2351-72-64C76:49:13.000ZBP Sitting (Pre-Dialysis)168/105 mmHgBP Sitting (Post-Dialysis)183/99 mmHg* Concurrent Access: false * AV Fistula Upper Arm (Left) Arterial Sitting Heart Rate Pre-Vgzltogc99 BPMBP Standing (Post-Dialysis)177/88 mmHg Temperature Pre-Fkqvggdz65.5 degFSitting Heart Rate Post-Oyevrfjx02 BPMStanding Heart Rate Post-Xtcpvniz43 BPMTemperature Post-Ymkcggdd87.2 [facility] 2023[facility] Wmnnoefvv9429-23-27V70:12:13.008M7340-59-78C59:01:36.000ZBP Sitting (Pre-Dialysis)161/100 mmHgBP Sitting (Post-Dialysis)157/106 mmHg* Concurrent Access: false * AV Fistula Upper Arm (Left) Arterial Sitting Heart Rate Pre-Fzqzcquk55 BPMBP Standing (Post-Dialysis)157/111 mmHg Temperature Pre-Spqtbmdf07.3 degFSitting Heart Rate Post-Dtgpepvr40 BPMStanding Heart Rate Post-Nmwnsfnt66 BPMTemperature Post-Efdiltug70.2 degFMay 2023[facility] Whbehlyon8840-34-98I04:15:13.990R3409-48-84Z12:13:16.000ZBP Sitting (Pre-Dialysis)132/83 mmHgBP Sitting (Post-Dialysis)124/72 mmHg* Concurrent Access: false * AV Fistula Upper Arm (Left) Arterial Sitting Heart Rate Pre-Dhgqmgyw49 BPMBP Standing (Post-Dialysis)144/97 mmHg Temperature Pre-Ljegkpqn03.2 degFSitting Heart Rate Post-Qcwrepyq66 BPMStanding Heart Rate Post-Osapmxso651 BPMTemperature Post-Tjuoenvj56.2 degay 2023[facility] Wphrteqon9828-52-10H68:09:00.601O3490-46-24D89:43:59.000ZBP Sitting (Pre-Dialysis)163/103 mmHgBP Sitting (Post-Dialysis)144/100 mmHg* Concurrent Access: false * AV Fistula Upper Arm (Left) Arterial Sitting Heart Rate Pre-Bjvsycku03 BPMBP Standing (Post-Dialysis)129/84 mmHg Temperature Pre-Wuhvhbqr96.9 degFSitting Heart Rate Post-Etqyyxyb28 BPMStanding Heart Rate Post-Naydbait10 BPMTemperature Post-Keguzqmd91.3 degay 2023[facility] Udjrjbzpx3472-98-76T11:20:37.409R3413-47-82X48:16:41.000ZBP Sitting (Pre-Dialysis)166/109 mmHgBP Sitting (Post-Dialysis)135/88 mmHg* Concurrent Access: false * AV Fistula Upper Arm (Left) Arterial Sitting Heart Rate Pre-Sraictkd60 BPMBP Standing (Post-Dialysis)147/98 mmHg Temperature Pre-Djaakkeh16.2 degFSitting Heart Rate Post-Axdmjjtl06 BPMStanding Heart Rate Post-Rjdmpilb671 BPMTemperature Post-Zgkzhcwu23.2 degFMay 2023[facility] Hltoymohb9943-45-21O60:11:17.690V8859-22-75M55:48:20.000ZBP Sitting (Pre-Dialysis)172/106 mmHgBP Sitting (Post-Dialysis)176/104 mmHg* Concurrent Access: false * AV Fistula Upper Arm (Left) Arterial Sitting Heart Rate Pre-Jjvixqid89 BPMBP Standing (Post-Dialysis)166/83 mmHg Temperature Pre-Gewxbrsd11.8 degFSitting Heart Rate Post-Mvksarls55 BPMStanding Heart Rate Post-Smuhpqqi63 BPMTemperature Post-Nsynkwyo32.1 degFMay 2023[facility] Cbofbakqs1068-01-44G17:53:36.490N5668-62-98Z48:09:40.000ZBP Sitting (Pre-Dialysis)145/96 mmHgBP Sitting (Post-Dialysis)124/82 mmHg* Concurrent Access: false * AV Fistula Upper Arm (Left) Arterial Sitting Heart Rate Pre-Ggekxnnl37 BPMBP Standing (Post-Dialysis)127/75 mmHg Temperature Pre-Xznoofje55 degFSitting Heart Rate Post-Xdubonpo62 BPMStanding Heart Rate Post-Itehauxc242 BPMTemperature Post-Giaoowoh08.1 degFMay 2023[facility] Goemqedii1658-80-06C59:13:36.370A4613-60-77Y39:06:40.000ZBP Sitting (Pre-Dialysis)166/98 mmHgBP Sitting (Post-Dialysis)157/84 mmHg* Concurrent Access: false * AV Fistula Upper Arm (Left) Arterial Sitting Heart Rate Pre-Bxeykdxm59 BPMBP Standing (Post-Dialysis)142/78 mmHg Temperature Pre-Zndehztf88.8 degFSitting Heart Rate Post-Nkoqgoqo74 BPMStanding Heart Rate Post-Twtghtfr05 BPMTemperature Post-Qqocaaqp61.7 degFMay 2023[facility] Ndjuyutuc9365-47-35A05:11:00.159D3979-36-91O92:48:14.000ZBP Sitting (Pre-Dialysis)153/91 mmHgBP Sitting (Post-Dialysis)159/100 mmHg* Concurrent Access: false * AV Fistula Upper Arm (Left) Arterial BP Standing (Pre-Dialysis)149/83 mmHgBP Standing (Post-Dialysis)145/95 mmHg Sitting Heart Rate Pre-Nzyhyenu82 BPMSitting Heart Rate Post-Rkswlilj09 BPM Standing Heart Rate Pre-Qndwfklu39 BPMStanding Heart Rate Post-Wbxweajx90 BPM Temperature Pre-Upzfzlgk97.6 degFTemperature Post-Buhayafi61.8 degFMay [facility]23 [facility] Upbtbqlhh6259-42-40C24:26:12.788L5381-19-75K73:54:15.000Z BP Sitting (Pre-Dialysis)170/111 mmHgBP Sitting (Post-Dialysis)163/103 mmHg* Concurrent Access: false * AV Fistula Upper Arm (Left) Arterial BP Standing (Pre-Dialysis)179/105 mmHgSitting Heart Rate Post-Evjyejsc15 BPM Sitting Heart Rate Pre-Rlbxvaff71 BPMTemperature Post-Bvcopfdp06.6 degFStanding Heart Rate Pre-Biziqocm92 BPMTemperature Pre-Mbiodxim65.2 degFMay 2023[facility] Yasvawort7674-13-05Z72:07:00.769T7351-62-11Q52:07:15.000ZBP Sitting (Pre-Dialysis)173/110 mmHgBP Sitting (Post-Dialysis)152/108 mmHg* Concurrent Access: false * AV Fistula Upper Arm (Left) Arterial Sitting Heart Rate Pre-Ijlmiyjt96 BPMBP Standing (Post-Dialysis)154/118 mmHg Temperature Pre-Ngbwfkzj16.5 degFSitting Heart Rate Post-Zazdxmbd32 BPMStanding Heart Rate Post-Cvufrngi267 BPMTemperature Post-Ofspmclv14 degFMay 2023[facility] Rszslcqaw5186-27-82X32:05:11.611C3858-11-51R63:03:15.000ZBP Sitting (Pre-Dialysis)164/107 mmHgBP Sitting (Post-Dialysis)168/105 mmHg* Concurrent Access: false * AV Fistula Upper Arm (Left) Arterial Sitting Heart Rate Pre-Qiiakxpa25 BPMBP Standing (Post-Dialysis)167/88 mmHg Temperature Pre-Hokvsomn22.1 degFSitting Heart Rate Post-Qhwzzycq76 BPMStanding Heart Rate Post-Vtwvgito239 BPMTemperature Post-Xxqndfgx72.2 degFMay 2023[facility] Ailedjjqr5821-95-69V84:08:00.541Y0093-16-24L46:08:51.000ZBP Sitting (Pre-Dialysis)184/105 mmHgBP Sitting (Post-Dialysis)173/98 mmHg* Concurrent Access: false * AV Fistula Upper Arm (Left) Arterial Sitting Heart Rate Pre-Qlikgwei36 BPMBP Standing (Post-Dialysis)179/99 mmHg Temperature Pre-Kplunhkp51.5 degFSitting Heart Rate Post-Njypolcs29 BPMStanding Heart Rate Post-Qxowooei06 BPMTemperature Post-Oekwcazj59 degFMay 2023[facility] Qdqymeurl9852-02-76J04:12:00.086T3656-05-69Q36:49:27.000ZBP Sitting (Pre-Dialysis)181/102 mmHgBP Sitting (Post-Dialysis)142/94 mmHg* Concurrent Access: false * AV Fistula Upper Arm (Left) Arterial BP Standing (Pre-Dialysis)190/135 mmHgSitting Heart Rate Post-Hmahtuvk72 BPM Sitting Heart Rate Pre-Smhmggkw07 BPMTemperature Post-Xxbhmsjz57.8 degFStanding Heart Rate Pre-Pkxybksy72 BPMTemperature Pre-Tujytyyo61.4 degFApril 2023[facility] Esqgnvoto3573-56-01Z77:11:47.856S6688-20-56W29:51:51.000ZBP Sitting (Pre-Dialysis)143/84 mmHgBP Sitting (Post-Dialysis)125/61 mmHg* Concurrent Access: false * AV Fistula Upper Arm (Left) Arterial Sitting Heart Rate Pre-Zrwxyyvs47 BPMBP Standing (Post-Dialysis)138/84 mmHg Temperature Pre-Isjoeywu93.2 degFSitting Heart Rate Post-Iqkywlkl62 BPMStanding Heart Rate Post-Bxxovdtz581 BPMTemperature Post-Dxrnwxpb58.6 degFApril 2023 [facility] Qngkxeynn0813-43-50Z56:13:21.948D2685-01-14D33:17:24.000Z BP Sitting (Pre-Dialysis)145/100 mmHgBP Sitting (Post-Dialysis)142/98 mmHg* Concurrent Access: false * AV Fistula Upper Arm (Left) Arterial Sitting Heart Rate Pre-Jzcsqfss52 BPMBP Standing (Post-Dialysis)149/99 mmHg Temperature Pre-Mzjqwwru47.2 degFSitting Heart Rate Post-Dxzlkspj44 BPMStanding Heart Rate Post-Fzbxytro328 BPMTemperature Post-Vztrnomm33.8 degFApril 2023 [facility] Mjdmvrvms5846-29-93T09:12:21.236T3439-56-02G80:09:24.000Z BP Sitting (Pre-Dialysis)166/105 mmHgBP Sitting (Post-Dialysis)167/103 mmHg* Concurrent Access: false * AV Fistula Upper Arm (Left) Arterial Sitting Heart Rate Pre-Nfrvyqld52 BPMBP Standing (Post-Dialysis)169/96 mmHg Temperature Pre-Uahqyznq64.7 degFSitting Heart Rate Post-Diribgoi66 BPMStanding Heart Rate Post-Ecpkciwt42 BPMTemperature Post-Jpvzcacm78.7 degFApril 2023 [facility] Kclpvafwd2545-90-33E51:14:20.352J2306-00-41U98:12:24.000Z BP Sitting (Pre-Dialysis)150/87 mmHgBP Sitting (Post-Dialysis)109/93 mmHg* Concurrent Access: false * AV Fistula Upper Arm (Left) Arterial Sitting Heart Rate Pre-Jdrffgch29 BPMBP Standing (Post-Dialysis)140/83 mmHg Temperature Pre-Ihfuitbr14.2 degFSitting Heart Rate Post-Dfzagkve66 BPMStanding Heart Rate Post-Qaldomde792 BPMTemperature Post-Fzlopcoz87.8 degFApril 2023 [facility] Hxodbmtcg0441-36-63V07:10:25.263L9716-01-56A07:52:29.000Z BP Sitting (Pre-Dialysis)159/96 mmHgBP Sitting (Post-Dialysis)131/93 mmHg* Concurrent Access: false * AV Fistula Upper Arm (Left) Arterial Sitting Heart Rate Pre-Hrqttjim57 BPMSitting Heart Rate Post-Cpmjwaoi81 BPM Temperature Pre-Osksbyxb71.1 degFTemperature Post-Eebzoppp03.6 degFApril 2023[facility] Pardvomaa4600-41-78N12:07:00.000Z 3666-22-79U14:07:30.000ZBP Sitting (Pre-Dialysis)160/96 mmHgBP Sitting (Post-Dialysis)167/89 mmHg* Concurrent Access: false * AV Fistula Upper Arm (Left) Arterial BP Standing (Pre-Dialysis)168/103 mmHgBP Standing (Post-Dialysis)135/93 mmHg Sitting Heart Rate Pre-Pkqijcts57 BPMSitting Heart Rate Post-Osggahgz47 BPM Standing Heart Rate Pre-Cyajrbsf14 BPMStanding Heart Rate Post-Imgxbchq799 BPM Temperature Pre-Vrivivup93.8 degFTemperature Post-Zieappwo76.2 degFApril 2023[facility] Tlmwsuhxn2754-18-65N02:08:00.000Z 1340-24-13R21:06:28.000ZBP Sitting (Pre-Dialysis)184/104 mmHgBP Sitting (Post-Dialysis)148/97 mmHg* Concurrent Access: false * AV Fistula Upper Arm (Left) Arterial Sitting Heart Rate Pre-Rejogpfm24 BPMBP Standing (Post-Dialysis)156/107 mmHg Temperature Pre-Vqopwxhs48.6 degFSitting Heart Rate Post-Pyjjvvfn88 BPMStanding Heart Rate Post-Xteguaev618 BPMTemperature Post-Lqyaospr54.2 degFApril 2023 [facility] Kynwjjmwn1271-25-09S88:09:00.222L6305-15-83N77:32:37.000Z BP Sitting (Pre-Dialysis)177/110 mmHgBP Sitting (Post-Dialysis)154/89 mmHg* Concurrent Access: false * AV Fistula Upper Arm (Left) Arterial Sitting Heart Rate Pre-Ybhnxtpr29 BPMSitting Heart Rate Post-Aquwoftx73 BPM Temperature Pre-Mdklwuow73.2 degFTemperature Post-Qyphtytu36.3 degFApril 2023[facility] Fyxlqgasg2255-72-67G25:14:34.000Z 0208-40-09M81:19:45.000ZBP Sitting (Pre-Dialysis)159/105 mmHgBP Sitting (Post-Dialysis)115/103 mmHg* Concurrent Access: false * AV Fistula Upper Arm (Left) Arterial Sitting Heart Rate Pre-Bctasqas38 BPMBP Standing (Post-Dialysis)125/96 mmHg Temperature Pre-Cnbrsuwy25.2 degFSitting Heart Rate Post-Hqtbemhn16 BPMStanding Heart Rate Post-Ajqpbryi02 BPMTemperature Post-Jzwfzxzf12.2 degFApril 2023 [facility] Hemod[facility] Imotjhior7746-07-58Q43:17:34.797C3087-03-31X41:27:38.000Z BP Sitting (Pre-Dialysis)172/105 mmHgBP Sitting (Post-Dialysis)175/108 mmHg* Concurrent Access: false * AV Fistula Upper Arm (Left) Arterial Sitting Heart Rate Pre-Afzpfkbj27 BPMBP Standing (Post-Dialysis)163/111 mmHg Temperature Pre-Lhmbjhng58.7 degFSitting Heart Rate Post-Oogoyonx53 BPMStanding Heart Rate Post-Dqnhqzqk795 BPMTemperature Post-Mvtezyoy34.3 degFApril 2023 [facility] Hemod[facility] Aukgufhib1092-25-95T99:11:09.197Z0045-57-57Q55:02:00.000Z BP Sitting (Pre-Dialysis)166/109 mmHgBP Sitting (Post-Dialysis)146/86 mmHg* Concurrent Access: false * AV Fistula Upper Arm (Left) Arterial Sitting Heart Rate Pre-Eatxsxnh20 BPMBP Standing (Post-Dialysis)137/90 mmHg Temperature Pre-Vcrmdpoo83 degFSitting Heart Rate Post-Fdkdqomz27 BPMStanding Heart Rate Post-Aovmuuzl78 BPMTemperature Post-Aoxgehjv99.6 degFApril 2023 [facility] Dkqtpzxvm7134-07-77R20:13:02.604F7383-84-18C35:18:03.000Z BP Sitting (Pre-Dialysis)158/101 mmHgBP Sitting (Post-Dialysis)147/85 mmHg* Concurrent Access: false * AV Fistula Upper Arm (Left) Arterial Sitting Heart Rate Pre-Ggtfbbim63 BPMBP Standing (Post-Dialysis)138/88 mmHg Temperature Pre-Kwgvdxqq56.5 degFSitting Heart Rate Post-Cxnojvai27 BPMStanding Heart Rate Post-Jdulbfsu907 BPMTemperature Post-Jvjatgjk86.5 degFApril 2023 [facility] Hemod[facility] Vqumbyvbj4706-94-12K26:06:02.721I9758-32-15M80:07:03.000Z BP Sitting (Pre-Dialysis)179/108 mmHgBP Sitting (Post-Dialysis)146/91 mmHg* Concurrent Access: false * AV Fistula Upper Arm (Left) Arterial Sitting Heart Rate Pre-Mvcgboqz78 BPMBP Standing (Post-Dialysis)167/105 mmHg Temperature Pre-Asagjiiz21.2 degFSitting Heart Rate Post-Lpvyezwk934 BPMStanding Heart Rate Post-Nnhlxktj282 BPMTemperature Post-Teovtafi86.2 degFMarch 2023 [facility] Hemod[facility] Cassoxvxe1293-52-32N92:07:00.771H2507-53-33T09:32:21.000Z BP Sitting (Pre-Dialysis)166/94 mmHgBP Sitting (Post-Dialysis)155/98 mmHg* Concurrent Access: false * AV Fistula Upper Arm (Left) Arterial Sitting Heart Rate Pre-Lprrxjff85 BPMBP Standing (Post-Dialysis)150/78 mmHg Temperature Pre-Okvvnemx52.7 degFSitting Heart Rate Post-Ocgkybbf55 BPMStanding Heart Rate Post-Lkiabbbc74 BPMTemperature Post-Vsqvhxgx44.8 degFMarch 2023 [facility] Hemod[facility] Mrfrgxmfe2840-89-07Y98:18:21.199C8263-75-27H07:18:21.000Z BP Sitting (Pre-Dialysis)189/108 mmHgBP Sitting (Post-Dialysis)192/104 mmHg* Concurrent Access: false * AV Fistula Upper Arm (Left) Arterial Sitting Heart Rate Pre-Aoiztaru33 BPMBP Standing (Post-Dialysis)168/96 mmHg Temperature Pre-Mnfdwyxx05.8 degFSitting Heart Rate Post-Rufwncui12 BPMStanding Heart Rate Post-Mfzbyuhv596 BPMTemperature Post-Xbytznuw68.7 degFMarch 2023 [facility]od[facility] Jcjwxhdpq0230-09-96K72:13:21.128P0351-73-26M43:12:21.000Z BP Sitting (Pre-Dialysis)158/89 mmHgBP Sitting (Post-Dialysis)162/96 mmHg* Concurrent Access: false * AV Fistula Upper Arm (Left) Arterial Sitting Heart Rate Pre-Wneegtrm27 BPMBP Standing (Post-Dialysis)153/95 mmHg Temperature Pre-Gxzrnphl76.2 degFSitting Heart Rate Post-Olqvzraw49 BPMStanding Heart Rate Post-Pzwgiizb622 BPMTemperature Post-Vakdsaal93.2 degFMarch 2023 [facility] Dxmoeqmhp9420-29-95Z13:12:00.327A1226-54-74Q23:16:21.000Z BP Sitting (Pre-Dialysis)155/110 mmHgBP Sitting (Post-Dialysis)161/95 mmHg* Concurrent Access: false * AV Fistula Upper Arm (Left) Arterial Sitting Heart Rate Pre-Wtcmwhqb11 BPMBP Standing (Post-Dialysis)130/95 mmHg Temperature Pre-Ibejpmov60.5 degFSitting Heart Rate Post-Kxwldljh13 BPMStanding Heart Rate Post-Atijjzwa334 BPMTemperature Post-Kjjkoixn25.2 degFMarch 2023 [facility]od[facility] Bfzivbuzp0728-83-24M47:18:48.967P1064-97-10O87:58:49.000Z BP Sitting (Pre-Dialysis)158/98 mmHgBP Sitting (Post-Dialysis)126/88 mmHg* Concurrent Access: false * AV Fistula Upper Arm (Left) Arterial Sitting Heart Rate Pre-Ldegqrtn71 BPMBP Standing (Post-Dialysis)132/86 mmHg Temperature Pre-Wxhtqgna44 degFSitting Heart Rate Post-Zmjzwrix93 BPMStanding Heart Rate Post-Cczqaunp311 BPMTemperature Post-Sucdqpwj28.2 degFMarch 2023 [facility] Hemod[facility] Nldxuisnh6540-48-51C91:18:00.554F9676-92-80B90:10:21.000Z BP Sitting (Pre-Dialysis)170/106 mmHgBP Sitting (Post-Dialysis)158/78 mmHg* Concurrent Access: false * AV Fistula Upper Arm (Left) Arterial Sitting Heart Rate Pre-Vegpnvgg11 BPMBP Standing (Post-Dialysis)134/98 mmHg Temperature Pre-Garczwpc15.6 degFSitting Heart Rate Post-Bhcbggut37 BPMStanding Heart Rate Post-Nebihcum46 BPMTemperature Post-Fnmydiub10.2 degFMarch 2023 [facility] Hemod[facility] Jvlkuhzwv2474-11-69V89:34:19.629O1979-06-80I43:44:20.000Z BP Sitting (Pre-Dialysis)174/107 mmHgBP Sitting (Post-Dialysis)152/72 mmHg* Concurrent Access: false * AV Fistula Upper Arm (Left) Arterial BP Standing (Pre-Dialysis)162/123 mmHgBP Standing (Post-Dialysis)158/80 mmHg Sitting Heart Rate Pre-Tzrtwmqw06 BPMSitting Heart Rate Post-Sjafvjge55 BPM Standing Heart Rate Pre-Pkdqbukf00 BPMStanding Heart Rate Post-Awymrfzk22 BPM Temperature Pre-Vccsndth30.8 degFTemperature Post-Ueeenkva69.8 degFMarch 2023[facility] Mfcnuript2081-05-57C45:20:19.000Z 9000-51-67T00:21:20.000ZBP Sitting (Pre-Dialysis)170/98 mmHgBP Sitting (Post-Dialysis)157/71 mmHg* Concurrent Access: false * AV Fistula Upper Arm (Left) Arterial Sitting Heart Rate Pre-Adbrhlab14 BPMBP Standing (Post-Dialysis)155/103 mmHg Temperature Pre-Ffzgvxkf70.1 degFSitting Heart Rate Post-Xaygcbtm268 BPMStanding Heart Rate Post-Orayqqzj75 BPMTemperature Post-Gretrxhb21.1 degFMarch 2023 [facility] Tsbwqzmsr3731-10-47Q57:13:20.979C5982-45-01E03:55:20.000Z BP Sitting (Pre-Dialysis)164/108 mmHgBP Sitting (Post-Dialysis)127/95 mmHg* Concurrent Access: false * AV Fistula Upper Arm (Left) Arterial Sitting Heart Rate Pre-Mpwoqrwa05 BPMBP Standing (Post-Dialysis)142/93 mmHg Temperature Pre-Digcrejg84.2 degFSitting Heart Rate Post-Phgbjevy224 BPMStanding Heart Rate Post-Xmvnbttk148 BPMTemperature Post-Fvqzhwmj83.3 degFMarch 2023 [facility]od[facility] Ritjltvsq2968-10-07V75:02:00.434Y6139-77-36I05:02:15.000Z BP Sitting (Pre-Dialysis)170/116 mmHgBP Sitting (Post-Dialysis)143/95 mmHg* Concurrent Access: false * AV Fistula Upper Arm (Left) Arterial Sitting Heart Rate Pre-Wmjwxnrx60 BPMBP Standing (Post-Dialysis)147/102 mmHg Temperature Pre-Hfmswccg18.3 degFSitting Heart Rate Post-Galkyxic894 BPMStanding Heart Rate Post-Tsuthnly034 BPMTemperature Post-Zrkrkefr74.2 degFMarch 2023 [facility] Ivimbehaa8739-06-53Y38:12:15.504H7423-11-82A40:09:15.000Z BP Sitting (Pre-Dialysis)183/109 mmHgBP Sitting (Post-Dialysis)129/86 mmHg* Concurrent Access: false * AV Fistula Upper Arm (Left) Arterial Sitting Heart Rate Pre-Mrtxexdx19 BPMBP Standing (Post-Dialysis)115/73 mmHg Temperature Pre-Ofonhlui58.2 degFSitting Heart Rate Post-Nvgcxrtw872 BPMStanding Heart Rate Post-Jyxlszop048 BPMTemperature Post-Zzzozmvc52.5 degFMarch 2023 [facility] Anovcnywn4003-22-81B91:29:15.396T5784-19-19X33:53:15.000Z BP Sitting (Pre-Dialysis)152/104 mmHgBP Sitting (Post-Dialysis)188/108 mmHg* Concurrent Access: false * AV Fistula Upper Arm (Left) Arterial Sitting Heart Rate Pre-Cqdoiqml55 BPMBP Standing (Post-Dialysis)178/104 mmHg Temperature Pre-Zmmkzuzk78.2 degFSitting Heart Rate Post-Lyoiajju44 BPMStanding Heart Rate Post-Ihmzlwvx812 BPMTemperature Post-Isvkgnbg00.3 degFMarch 2023 [facility] Rnzsvjzci4944-87-78X96:41:11.731D8245-59-16J75:02:11.000Z BP Sitting (Pre-Dialysis)152/93 mmHgBP Sitting (Post-Dialysis)142/78 mmHg* Concurrent Access: false * AV Fistula Upper Arm (Left) Arterial Sitting Heart Rate Pre-Axkbvshc20 BPMBP Standing (Post-Dialysis)106/71 mmHg Temperature Pre-Mrxzuxwf06.2 degFSitting Heart Rate Post-Edcnxelp33 BPMStanding Heart Rate Post-Utqtenxj61 BPMTemperature Post-Dulhbvxv42.8 degFFebruary 2023[facility] Dqwzjmywt1630-23-43B43:18:00.000Z 5765-96-68J83:03:11.000ZBP Sitting (Pre-Dialysis)179/101 mmHgBP Sitting (Post-Dialysis)166/84 mmHg* Concurrent Access: false * AV Fistula Upper Arm (Left) Arterial BP Standing (Pre-Dialysis)163/94 mmHgBP Standing (Post-Dialysis)161/82 mmHg Sitting Heart Rate Pre-Knzgwgoo82 BPMSitting Heart Rate Post-Srakrwlz53 BPM Standing Heart Rate Pre-Kaokgrbe23 BPMStanding Heart Rate Post-Vpeyqbtu891 BPM Temperature Pre-Mgrbalyp15.5 degFTemperature Post-Xlzwvuqr92.5 degFFebruary 2023[facility] Oruzasrdm2748-75-90E51:12:11.000Z 1014-66-80V97:56:11.000ZBP Sitting (Pre-Dialysis)169/108 mmHgBP Sitting (Post-Dialysis)164/100 mmHg* Concurrent Access: false * AV Fistula Upper Arm (Left) Arterial Sitting Heart Rate Pre-Hibzvzuh32 BPMBP Standing (Post-Dialysis)155/98 mmHg Temperature Pre-Iuvmopse87.5 degFSitting Heart Rate Post-Kmpvvzcv10 BPMStanding Heart Rate Post-Zirhwphz827 BPMTemperature Post-Hpjgggja52 degFFebruary 2023 In[facility]Center Hemodialysis Jgssidqie8614-81-11Z42:16:00.477Y9573-75-92A88:03:13.000Z BP Sitting (Pre-Dialysis)161/102 mmHgBP Sitting (Post-Dialysis)133/95 mmHg* Concurrent Access: false * AV Fistula Upper Arm (Left) Arterial Sitting Heart Rate Pre-Dtaqebyt58 BPMBP Standing (Post-Dialysis)152/102 mmHg Temperature Pre-Hbdsjxsu19.5 degFSitting Heart Rate Post-Vbednhgf43 BPMStanding Heart Rate Post-Yoxftsrb914 BPMTemperature Post-Srnygjko51.5 degFFebruary 2023[facility] Jvrwwpxsw6340-65-95Q39:10:25.000Z 4242-58-55Y14:12:26.000ZBP Sitting (Pre-Dialysis)162/95 mmHgBP Sitting (Post-Dialysis)147/88 mmHg* Concurrent Access: false * AV Fistula Upper Arm (Left) Arterial Sitting Heart Rate Pre-Hdizmpqx09 BPMSitting Heart Rate Post-Vxhminrl48 BPM Temperature Pre-Permnsvf46.9 degFTemperature Post-Xnneuwcx50.6 degFFebruary 2023[facility] Ydwwuisxa4838-53-51Y03:20:25.000Z 2491-81-46D43:17:26.000ZBP Sitting (Pre-Dialysis)151/94 mmHgBP Sitting (Post-Dialysis)147/78 mmHg* Concurrent Access: false * AV Fistula Upper Arm (Left) Arterial Sitting Heart Rate Pre-Ayyxckey92 BPMBP Standing (Post-Dialysis)153/82 mmHg Temperature Pre-Tfdajyrk35.2 degFSitting Heart Rate Post-Upweozlw33 BPMStanding Heart Rate Post-Otynbdkr38 BPMTemperature Post-Knuzdfqe80.2 degFFebruary 2023[facility] Llzxrwawx6605-57-74C95:11:00.000Z 9256-11-81R76:59:07.000ZBP Sitting (Pre-Dialysis)166/98 mmHgBP Sitting (Post-Dialysis)156/91 mmHg* Concurrent Access: false * AV Fistula Upper Arm (Left) Arterial BP Standing (Pre-Dialysis)175/106 mmHgBP Standing (Post-Dialysis)151/84 mmHg Sitting Heart Rate Pre-Loqjvhkd88 BPMSitting Heart Rate Post-Vrsiqqtu89 BPM Standing Heart Rate Pre-Djevhvsp97 BPMStanding Heart Rate Post-Bfzrhjaa63 BPM Temperature Pre-Piyfaxue88.6 degFTemperature Post-Shlnsvrk66.8 degFFebruary 2023[facility] Hkffaqhoj1937-17-29W16:12:07.000Z 5032-84-42K31:10:07.000ZBP Sitting (Pre-Dialysis)167/108 mmHgBP Sitting (Post-Dialysis)167/101 mmHg* Concurrent Access: false * AV Fistula Upper Arm (Left) Arterial Sitting Heart Rate Pre-Thezkame43 BPMBP Standing (Post-Dialysis)173/95 mmHg Temperature Pre-Zojfjwdh17.5 degFSitting Heart Rate Post-Yngbdvvf06 BPMStanding Heart Rate Post-Qqdqioqq602 BPMTemperature Post-Mfmlrzjc21.5 degFFebruary 2023[facility] Oqvaazegt9658-22-87S86:22:00.000Z 1264-24-12A72:26:07.000ZBP Sitting (Pre-Dialysis)182/102 mmHgBP Sitting (Post-Dialysis)160/87 mmHg* Concurrent Access: false * AV Fistula Upper Arm (Left) Arterial Sitting Heart Rate Pre-Awxnlxry44 BPMSitting Heart Rate Post-Qqzlqbxu977 BPM Temperature Pre-Bybxqumw13.4 degFTemperature Post-Pkjyzlkl76.2 degFFebruary 2023[facility] Amtwpmmoa1022-76-70U30:09:42.000Z 5274-51-36X91:04:42.000ZBP Sitting (Pre-Dialysis)137/112 mmHgBP Sitting (Post-Dialysis)172/83 mmHg* Concurrent Access: false * AV Fistula Upper Arm (Left) Arterial Sitting Heart Rate Pre-Yrnufkdz756 BPMBP Standing (Post-Dialysis)123/83 mmHg Temperature Pre-Mftriyxv32.2 degFSitting Heart Rate Post-Rkglfbbj23 BPMStanding Heart Rate Post-Dnhdngal318 BPMTemperature Post-Oulubydp95.6 degFFebruary 2023[facility] Aibglwuvw9476-95-31O93:07:42.000Z 8544-08-99Q91:31:42.000ZBP Sitting (Pre-Dialysis)158/95 mmHgBP Sitting (Post-Dialysis)145/97 mmHg* Concurrent Access: false * AV Fistula Upper Arm (Left) Arterial Sitting Heart Rate Pre-Ipvhppem59 BPMBP Standing (Post-Dialysis)162/100 mmHg Temperature Pre-Jhudcmce87.2 degFSitting Heart Rate Post-Rsenaole50 BPMStanding Heart Rate Post-Ehtezqdy25 BPMTemperature Post-Povlyhbh17.2 degFFebruary 2023[facility] Izszxkekw2327-71-29U44:14:42.000Z 2706-83-74S85:17:42.000ZBP Sitting (Pre-Dialysis)153/100 mmHgBP Sitting (Post-Dialysis)156/93 mmHg* Concurrent Access: false * AV Fistula Upper Arm (Left) Arterial Sitting Heart Rate Pre-Pqvtjlmb77 BPMBP Standing (Post-Dialysis)151/87 mmHg Temperature Pre-Xtbipwzx06.3 degFSitting Heart Rate Post-Cvbglpyd35 BPMStanding Heart Rate Post-Gzrxhnxz73 BPMTemperature Post-Zmokkvlw92.3 degFFebruary 2023[facility] Dtpftroqu2852-29-14K63:19:20.000Z 1698-96-90J37:46:21.000ZBP Sitting (Pre-Dialysis)151/96 mmHgBP Sitting (Post-Dialysis)157/94 mmHg* Concurrent Access: false * AV Fistula Upper Arm (Left) Arterial Sitting Heart Rate Pre-Afxszjuq64 BPMBP Standing (Post-Dialysis)145/97 mmHg Temperature Pre-Nfcafuvf85.2 degFSitting Heart Rate Post-Fhwbjrxb76 BPMStanding Heart Rate Post-Affniufi40 BPMTemperature Post-Zlgasguo76.5 degFFebruary 2023[facility] Wsrqznyhq1908-78-82O66:11:20.000Z 4166-66-93O15:15:21.000ZBP Sitting (Pre-Dialysis)144/84 mmHgBP Sitting (Post-Dialysis)126/71 mmHg* Concurrent Access: false * AV Fistula Upper Arm (Left) Arterial Sitting Heart Rate Pre-Urkbjscp25 BPMBP Standing (Post-Dialysis)114/68 mmHg Temperature Pre-Vipooetw42.2 degFSitting Heart Rate Post-Khlzzngu62 BPMStanding Heart Rate Post-Qwwkhrch65 BPMTemperature Post-Lkiappke43.8 degFJanuary 2023 [facility] Oxkreogve4502-21-77B51:33:20.971G2684-64-96X47:23:20.000Z BP Sitting (Pre-Dialysis)149/85 mmHgBP Sitting (Post-Dialysis)139/81 mmHg* Concurrent Access: false * AV Fistula Upper Arm (Left) Arterial Sitting Heart Rate Pre-Qepxhsnl84 BPMBP Standing (Post-Dialysis)135/76 mmHg Temperature Pre-Robqxvcc89 degFSitting Heart Rate Post-Pkepoftk85 BPMStanding Heart Rate Post-Zchjwbdx55 BPMTemperature Post-Mlppztfp72.5 degFJanuary 2023 [facility] Dagqexcjx2352-34-67Y94:07:09.983I8802-40-07L46:32:09.000Z BP Sitting (Pre-Dialysis)125/103 mmHgBP Sitting (Post-Dialysis)147/93 mmHg* Concurrent Access: false * AV Fistula Upper Arm (Left) Arterial BP Standing (Pre-Dialysis)163/103 mmHgBP Standing (Post-Dialysis)143/97 mmHg Sitting Heart Rate Pre-Rezjvhao62 BPMSitting Heart Rate Post-Pmootylb14 BPM Standing Heart Rate Pre-Uddzeweg46 BPMStanding Heart Rate Post-Goqnkolw08 BPM Temperature Pre-Rjovaccy69.6 degFTemperature Post-Gazwtneb59.5 degFJanuary 2023[facility] Vchmpqtom0013-48-99I98:13:09.000Z 0910-63-42V13:11:09.000ZBP Sitting (Pre-Dialysis)144/88 mmHgBP Sitting (Post-Dialysis)128/80 mmHg* Concurrent Access: false * AV Fistula Upper Arm (Left) Arterial Sitting Heart Rate Pre-Gnilfajv84 BPMBP Standing (Post-Dialysis)128/78 mmHg Temperature Pre-Gqpizlrj95 degFSitting Heart Rate Post-Xwbdcbyo86 BPMStanding Heart Rate Post-Govcemtd80 BPMTemperature Post-Typqhvyt77.2 degFJanuary 2023 [facility] Essozffjq0818-30-34O77:32:20.036A3113-84-52J10:29:20.000Z BP Sitting (Pre-Dialysis)140/94 mmHgBP Sitting (Post-Dialysis)138/85 mmHg* Concurrent Access: false * AV Fistula Upper Arm (Left) Arterial Sitting Heart Rate Pre-Wlihnmtw25 BPMSitting Heart Rate Post-Jdbpalof00 BPM Temperature Pre-Dkhgzmwm14 degFTemperature Post-Uidhjryl11.2 degFJanuary 20[facility] Ioowhppuf8545-93-18C66:13:25.000Z 7907-02-22H83:02:25.000ZBP Sitting (Pre-Dialysis)159/92 mmHgBP Sitting (Post-Dialysis)160/89 mmHg* Concurrent Access: false * AV Fistula Upper Arm (Left) Arterial BP Standing (Pre-Dialysis)156/99 mmHgBP Standing (Post-Dialysis)158/111 mmHg Sitting Heart Rate Pre-Stgbeyyz74 BPMSitting Heart Rate Post-Dboosmsi45 BPM Standing Heart Rate Pre-Chnzrxgk40 BPMStanding Heart Rate Post-Quiaczgp641 BPM Temperature Pre-Jwbysgma80.2 degFTemperature Post-Dpgdpkyf16.3 degFJanuary 2023[facility] Qsthyblga2258-98-82X88:16:20.000Z 4319-24-73Q62:02:20.000ZBP Sitting (Pre-Dialysis)155/97 mmHgBP Sitting (Post-Dialysis)161/97 mmHg* Concurrent Access: false * AV Fistula Upper Arm (Left) Arterial BP Standing (Pre-Dialysis)159/92 mmHgSitting Heart Rate Post-Luetjhrg97 BPM Sitting Heart Rate Pre-Kxefyjyf63 BPMTemperature Post-Ldbmzfda56.7 degFStanding Heart Rate Pre-Gqetyfkg14 BPMTemperature Pre-Ajyxtokh01.6 degFJanuary 2023 [facility] Lbotafkfn1349-85-51V87:57:26.874B7763-18-35R74:59:27.000Z BP Sitting (Pre-Dialysis)158/101 mmHgBP Sitting (Post-Dialysis)124/75 mmHg* Concurrent Access: false * AV Fistula Upper Arm (Left) Arterial Sitting Heart Rate Pre-Ddjlwqsv34 BPMBP Standing (Post-Dialysis)122/90 mmHg Temperature Pre-Hlaekyzh07.3 degFSitting Heart Rate Post-Fmoxocva99 BPMStanding Heart Rate Post-Mbscvwjd53 BPMTemperature Post-Hjzsupko42.2 degFJanuary 2023 [facility] Hlssbntjk9640-59-51B99:14:27.985Y9933-63-14H00:04:27.000Z BP Sitting (Pre-Dialysis)158/88 mmHgBP Sitting (Post-Dialysis)143/80 mmHg* Concurrent Access: false * AV Fistula Upper Arm (Left) Arterial Sitting Heart Rate Pre-Zfmrqdgw80 BPMBP Standing (Post-Dialysis)154/101 mmHg Temperature Pre-Qlggakfu10 degFSitting Heart Rate Post-Fqrjdzme46 BPMStanding Heart Rate Post-Tlajjvnm68 BPMTemperature Post-Vxwwiqwm57.2 degFJanuary 2023 [facility] Awznbfwkl1335-63-59E95:23:00.082F0175-04-32N27:26:27.000Z BP Sitting (Pre-Dialysis)130/84 mmHgBP Sitting (Post-Dialysis)163/97 mmHg* Concurrent Access: false * AV Fistula Upper Arm (Left) Arterial Sitting Heart Rate Pre-Gmccduqw03 BPMBP Standing (Post-Dialysis)158/109 mmHg Temperature Pre-Tkybtknq27.3 degFSitting Heart Rate Post-Ttelugda33 BPMStanding Heart Rate Post-Hwvuhojo221 BPMTemperature Post-Bvnhmsao50.5 degFJanuary 2023[facility] Thgzqkesa1303-56-41X25:16:00.000Z 5332-88-19A92:57:18.000ZBP Sitting (Pre-Dialysis)130/93 mmHgBP Sitting (Post-Dialysis)148/94 mmHg* Concurrent Access: false * AV Fistula Upper Arm (Left) Arterial Sitting Heart Rate Pre-Rmpxymsq32 BPMSitting Heart Rate Post-Ceyteijp06 BPM Temperature Pre-Mhifhqmh88 degFTemperature Post-Bpnkbofo03 degFJanuary 2023 [facility] Mvgybfrkl7439-70-27V18:03:00.004X2317-87-33M24:58:22.000Z BP Sitting (Pre-Dialysis)143/88 mmHgBP Sitting (Post-Dialysis)170/97 mmHg* Concurrent Access: false * AV Fistula Upper Arm (Left) Arterial BP Standing (Pre-Dialysis)155/98 mmHgBP Standing (Post-Dialysis)152/67 mmHg Sitting Heart Rate Pre-Iqzmwqhe33 BPMSitting Heart Rate Post-Uutacojf33 BPM Standing Heart Rate Pre-Ntgovlya14 BPMStanding Heart Rate Post-Lsvqxusk44 BPM Temperature Pre-Jypvltuh05.2 degFTemperature Post-Gowdnfhc20.2 degFJanuary 2023[facility] [facility] Yexjxvggc0510-47-88L94:07:42.000Z 7686-12-13I10:08:41.000ZBP Sitting (Pre-Dialysis)144/82 mmHgBP Sitting (Post-Dialysis)164/101 mmHg* Concurrent Access: false * AV Fistula Upper Arm (Left) Arterial Sitting Heart Rate Pre-Sayfdogo85 BPMSitting Heart Rate Post-Zzpzster97 BPM Temperature Pre-Qemsvhzr94 degFTemperature Post-Hrtchwhe41 degFDecember 2022 [facility] Pblzrmevk7294-34-18P69:05:00.159I6087-95-65G34:05:20.000Z BP Sitting (Pre-Dialysis)169/100 mmHgBP Sitting (Post-Dialysis)139/61 mmHg* Concurrent Access: false * AV Fistula Upper Arm (Left) Arterial Sitting Heart Rate Pre-Ssyztlsm36 BPMBP Standing (Post-Dialysis)145/103 mmHg Temperature Pre-Wwpgmnny64.5 degFSitting Heart Rate Post-Xfzxlsjj24 BPMStanding Heart Rate Post-Zuwhlbyf23 BPMTemperature Post-Yrydqynu11.9 degFDecember 2022[facility] Xzdidrmmr2230-15-96V83:17:19.000Z 6124-51-95M53:15:20.000ZBP Sitting (Pre-Dialysis)128/81 mmHgBP Sitting (Post-Dialysis)126/84 mmHg* Concurrent Access: false * AV Fistula Upper Arm (Left) Arterial BP Standing (Pre-Dialysis)137/85 mmHgBP Standing (Post-Dialysis)131/70 mmHg Sitting Heart Rate Pre-Mdwtoyxw42 BPMSitting Heart Rate Post-Qmzysxcm68 BPM Standing Heart Rate Pre-Vshtkrdn79 BPMStanding Heart Rate Post-Hopbdfgf228 BPM Temperature Pre-Ecztfrez39.2 degFTemperature Post-Buwjkyan57.6 degFDecember 2022[facility] Slckffycd1428-21-54S12:22:19.000Z 2289-63-61Z87:20:20.000ZBP Sitting (Pre-Dialysis)126/82 mmHgBP Sitting (Post-Dialysis)134/78 mmHg* Concurrent Access: false * AV Fistula Upper Arm (Left) Arterial Sitting Heart Rate Pre-Atbbnxjo38 BPMBP Standing (Post-Dialysis)120/89 mmHg Temperature Pre-Jsznuuzk66 degFSitting Heart Rate Post-Iryctisj45 BPMStanding Heart Rate Post-Kuywocmm89 BPMTemperature Post-Uotljwuv05.5 degFDecember 2022[facility] Oxgzfcxng3761-65-50R24:13:10.000Z 8675-75-73Q79:36:10.000ZBP Sitting (Pre-Dialysis)150/72 mmHgBP Sitting (Post-Dialysis)110/52 mmHg* Concurrent Access: false * AV Fistula Upper Arm (Left) Arterial BP Standing (Pre-Dialysis)121/80 mmHgBP Standing (Post-Dialysis)108/64 mmHg Sitting Heart Rate Pre-Agcwnqga99 BPMSitting Heart Rate Post-Rtfvttrp04 BPM Standing Heart Rate Pre-Bycoxgpx26 BPMStanding Heart Rate Post-Egwcqufh53 BPM Temperature Pre-Hbmewodz38.7 degFTemperature Post-Uxzjvkti81.2 degFDecember 2022[facility] Qxpflpfgy6534-38-92B87:12:10.000Z 0594-20-46F48:03:10.000ZBP Sitting (Pre-Dialysis)152/85 mmHgBP Sitting (Post-Dialysis)135/87 mmHg* Concurrent Access: false * AV Fistula Upper Arm (Left) Arterial BP Standing (Pre-Dialysis)155/89 mmHgBP Standing (Post-Dialysis)100/55 mmHg Sitting Heart Rate Pre-Ekjnrcln73 BPMSitting Heart Rate Post-Jqghtoeb20 BPM Standing Heart Rate Pre-Yhwnkdgy52 BPMStanding Heart Rate Post-Ypbmhnjy949 BPM Temperature Pre-Sbqbqvxu77.6 degFTemperature Post-Dqymyzlj23.6 degFDecember 2022[facility] Wxscqhsyd3503-30-67D98:17:00.000Z 2720-03-09D03:16:10.000ZBP Sitting (Pre-Dialysis)154/92 mmHgBP Sitting (Post-Dialysis)143/89 mmHg* Concurrent Access: false * AV Fistula Upper Arm (Left) Arterial Sitting Heart Rate Pre-Qbowmzkv86 BPMBP Standing (Post-Dialysis)134/78 mmHg Temperature Pre-Ydzcrmqm16.8 degFSitting Heart Rate Post-Ismmloqa09 BPMStanding Heart Rate Post-Ehaahfdu02 BPMTemperature Post-Kyjpdnwm42.6 degFDecember 2022[facility] Moqbfirvc7848-25-28W11:51:00.000Z 5864-55-25Y48:54:01.000ZBP Sitting (Pre-Dialysis)155/99 mmHgBP Sitting (Post-Dialysis)148/92 mmHg* Concurrent Access: false * AV Fistula Upper Arm (Left) Arterial BP Standing (Pre-Dialysis)145/98 mmHgBP Standing (Post-Dialysis)148/96 mmHg Sitting Heart Rate Pre-Ehqyjwrk09 BPMSitting Heart Rate Post-Tztprzpm44 BPM Standing Heart Rate Pre-Ucsplmrm38 BPMStanding Heart Rate Post-Cypejhjz009 BPM Temperature Pre-Nzdrzulq74.6 degFTemperature Post-Wmxyfajr75.4 degFDecember 2022[facility] Wqnyrrwyp2107-98-91X76:10:00.000Z 8313-62-20D25:18:01.000ZBP Sitting (Pre-Dialysis)162/95 mmHgBP Sitting (Post-Dialysis)165/93 mmHg* Concurrent Access: false * AV Fistula Upper Arm (Left) Arterial Sitting Heart Rate Pre-Ivhgwnrl30 BPMSitting Heart Rate Post-Kygavtaw37 BPM Temperature Pre-Stxtbldf07.8 degFTemperature Post-Qlhosscq49 degFDecember 2022[facility] Ggliaivti4602-05-03M66:05:07.000Z 8726-51-77C80:52:07.000ZBP Sitting (Pre-Dialysis)133/87 mmHgBP Sitting (Post-Dialysis)105/62 mmHg* Concurrent Access: false * AV Fistula Upper Arm (Left) Arterial BP Standing (Pre-Dialysis)142/89 mmHgBP Standing (Post-Dialysis)109/74 mmHg Sitting Heart Rate Pre-Xhoxkfpd43 BPMSitting Heart Rate Post-Czgakakh01 BPM Standing Heart Rate Pre-Xvwvejhb98 BPMStanding Heart Rate Post-Ffdoklkm64 BPM Temperature Pre-Jyugqwef16.6 degFTemperature Post-Nafcubsn14.6 degFDecember 2022[facility] Ydsjusrnh9019-57-65M91:32:57.000Z 6696-86-63S30:02:57.000ZBP Sitting (Pre-Dialysis)142/91 mmHgBP Sitting (Post-Dialysis)131/90 mmHg* Concurrent Access: false * AV Fistula Upper Arm (Left) Arterial Sitting Heart Rate Pre-Yblaizyg64 BPMSitting Heart Rate Post-Efirsfib61 BPM Temperature Pre-Bosxevun87 degFTemperature Post-Pynjmnyr27.4 degFDecember 2022[facility] Magdfhzwm0303-44-92B94:20:31.000Z 0429-47-39H11:14:32.000ZBP Sitting (Pre-Dialysis)156/92 mmHgBP Sitting (Post-Dialysis)129/95 mmHg* Concurrent Access: false * AV Fistula Upper Arm (Left) Arterial BP Standing (Pre-Dialysis)160/95 mmHgBP Standing (Post-Dialysis)126/94 mmHg Sitting Heart Rate Pre-Wmxqmphk74 BPMSitting Heart Rate Post-Dfvqxkei55 BPM Standing Heart Rate Pre-Ziaksswc11 BPMStanding Heart Rate Post-Yvjpieif809 BPM Temperature Pre-Xanxoiid41.6 degFTemperature Post-Axsfkvfm13.3 degFDecember 2022[facility] Lgmdcwiwm0489-13-57U57:14:00.000Z 9600-76-17X02:27:32.000ZBP Sitting (Pre-Dialysis)161/98 mmHgBP Sitting (Post-Dialysis)144/90 mmHg* Concurrent Access: false * AV Fistula Upper Arm (Left) Arterial Sitting Heart Rate Pre-Kysptfra57 BPMSitting Heart Rate Post-Zygwfbdu21 BPM Temperature Pre-Rluxhnfn56.3 degFTemperature Post-Dxjtayir63.3 degFNovember 2022[facility] Gqyqjkzeo6202-28-87L10:12:00.000Z 1076-17-00K54:06:22.000ZBP Sitting (Pre-Dialysis)159/96 mmHgBP Sitting (Post-Dialysis)142/109 mmHg* Concurrent Access: false * AV Fistula Upper Arm (Left) Arterial Sitting Heart Rate Pre-Sycqezuw41 BPMBP Standing (Post-Dialysis)136/94 mmHg Temperature Pre-Clfavnvm01.5 degFSitting Heart Rate Post-Kdcmuxlk25 BPMStanding Heart Rate Post-Plufnebc23 BPMTemperature Post-Dobuiguf33.8 degFNovember 2022[facility] Fdjafzzru5927-93-82A62:29:41.000Z 4881-84-51N57:23:41.000ZBP Sitting (Pre-Dialysis)136/84 mmHgBP Sitting (Post-Dialysis)128/78 mmHg* Concurrent Access: false * AV Fistula Upper Arm (Left) Arterial BP Standing (Pre-Dialysis)144/85 mmHgBP Standing (Post-Dialysis)143/94 mmHg Sitting Heart Rate Pre-Dgjgomoe80 BPMSitting Heart Rate Post-Jupsfmnk90 BPM Standing Heart Rate Pre-Utkhlytc72 BPMStanding Heart Rate Post-Rdctzghw255 BPM Temperature Pre-Jeubeaze27.6 degFTemperature Post-Yrojhaao53.6 degFNovember 2022[facility] Vrwjhsqpz9753-45-94V51:41:21.000Z 4973-67-41U14:42:22.000ZBP Sitting (Pre-Dialysis)138/92 mmHgBP Sitting (Post-Dialysis)134/62 mmHg* Concurrent Access: false * AV Fistula Upper Arm (Left) Arterial BP Standing (Pre-Dialysis)153/97 mmHgBP Standing (Post-Dialysis)136/96 mmHg Sitting Heart Rate Pre-Lpyqygif49 BPMSitting Heart Rate Post-Xabtdqnm86 BPM Standing Heart Rate Pre-Mieayxyi64 BPMStanding Heart Rate Post-Fydfogud384 BPM Temperature Pre-Giwlaxjp07.3 degFTemperature Post-Jsqhgpfo61.3 degFNovember 2022[facility] Vnydvsriu4306-23-73K80:16:58.000Z 5329-62-74U40:16:58.000ZBP Sitting (Pre-Dialysis)153/97 mmHgBP Sitting (Post-Dialysis)149/85 mmHg* Concurrent Access: false * AV Fistula Upper Arm (Left) Arterial BP Standing (Pre-Dialysis)161/99 mmHgBP Standing (Post-Dialysis)146/92 mmHg Sitting Heart Rate Pre-Yczidrru64 BPMSitting Heart Rate Post-Yihhgjyi67 BPM Standing Heart Rate Pre-Dweedgsw28 BPMStanding Heart Rate Post-Txsspjut48 BPM Temperature Pre-Hhxjkicb24.6 degFTemperature Post-Egaovyjg14.2 degFNovember 2022[facility] Uyvhliobh4651-86-14C68:12:58.000Z 4020-45-28K70:14:59.000ZBP Sitting (Pre-Dialysis)135/89 mmHgBP Sitting (Post-Dialysis)122/79 mmHg* Concurrent Access: false * AV Fistula Upper Arm (Left) Arterial Sitting Heart Rate Pre-Hpnosniq34 BPMSitting Heart Rate Post-Judvjmrl49 BPM Temperature Pre-Fhxtrmtm28.1 degFTemperature Post-Adprujvy25.2 degFNov2022[facility] Qylijwgmj8011-55-80Y66:16:36.000Z 4163-90-06M36:19:36.000ZBP Sitting (Pre-Dialysis)149/91 mmHgBP Sitting (Post-Dialysis)132/87 mmHg* Concurrent Access: false * AV Fistula Upper Arm (Left) Arterial BP Standing (Pre-Dialysis)156/90 mmHgBP Standing (Post-Dialysis)159/96 mmHg Sitting Heart Rate Pre-Smuxmogp36 BPMSitting Heart Rate Post-Khmbzxuv29 BPM Standing Heart Rate Pre-Atdnelbw90 BPMStanding Heart Rate Post-Agdjdwrk59 BPM Temperature Pre-Lbnqkqvz22.3 degFTemperature Post-Oqsuisdp91.3 degFNovember 2022[facility] Lgqnwffvg3678-62-74G49:14:42.000Z 1029-60-68P30:07:43.000ZBP Sitting (Pre-Dialysis)148/96 mmHgBP Sitting (Post-Dialysis)129/89 mmHg* Concurrent Access: false * AV Fistula Upper Arm (Left) Arterial Sitting Heart Rate Pre-Skgvrduh93 BPMBP Standing (Post-Dialysis)145/94 mmHg Temperature Pre-Vwqicldr98.2 degFSitting Heart Rate Post-Whnabavw70 BPMStanding Heart Rate Post-Zxsdgadp543 BPMTemperature Post-Hafrrpbp75.2 degFNovember 2022[facility] Efeipjsff9436-00-37W45:18:00.000Z 2518-78-83H54:19:43.000ZBP Sitting (Pre-Dialysis)161/92 mmHgBP Sitting (Post-Dialysis)145/76 mmHg* Concurrent Access: false * AV Fistula Upper Arm (Left) Arterial BP Standing (Pre-Dialysis)156/96 mmHgBP Standing (Post-Dialysis)134/51 mmHg Sitting Heart Rate Pre-Rssfwhkp97 BPMSitting Heart Rate Post-Fbfantfh93 BPM Standing Heart Rate Pre-Kfsypsdn32 BPMStanding Heart Rate Post-Hnztfoxh54 BPM Temperature Pre-Zaiyqrcd79.4 degFTemperature Post-Tnotfmnn84.2 degFNovember 2022[facility] Udsusoniz7079-43-11D13:13:42.000Z 4599-03-61H94:13:43.000ZBP Sitting (Pre-Dialysis)145/90 mmHgBP Sitting (Post-Dialysis)125/81 mmHg* Concurrent Access: false * AV Fistula Upper Arm (Left) Arterial Sitting Heart Rate Pre-Oxvfdzgi14 BPMBP Standing (Post-Dialysis)148/88 mmHg Temperature Pre-Iogtnoxs50.2 degFSitting Heart Rate Post-Yabivrpg18 BPMStanding Heart Rate Post-Qqhtndwv23 BPMTemperature Post-Nlxeslpp01.6 degFNovember 2022[facility] Pumrxeslj6180-43-73A58:11:16.000Z 2086-76-86C75:12:16.000ZBP Sitting (Pre-Dialysis)151/88 mmHgBP Sitting (Post-Dialysis)133/92 mmHg* Concurrent Access: false * AV Fistula Upper Arm (Left) Arterial Sitting Heart Rate Pre-Hrhhcppm46 BPMBP Standing (Post-Dialysis)141/96 mmHg Temperature Pre-Kptvluvl00.2 degFSitting Heart Rate Post-Jqjovmro01 BPMStanding Heart Rate Post-Sopazlzi92 BPMTemperature Post-Oodbqvgh15.2 degFNovember 2022[facility] Pbnnbrjgq4689-60-28S25:22:00.000Z 1148-58-86Y16:21:40.000ZBP Sitting (Pre-Dialysis)159/90 mmHgBP Sitting (Post-Dialysis)158/91 mmHg* Concurrent Access: false * AV Fistula Upper Arm (Left) Arterial Sitting Heart Rate Pre-Flrzrvsi08 BPMBP Standing (Post-Dialysis)190/72 mmHg Temperature Pre-Htohltwt59.2 degFSitting Heart Rate Post-Fdobsrld43 BPMStanding Heart Rate Post-Qdntqgnd60 BPMTemperature Post-Gsirazxa59.6 degFOctober 2022 [facility] Jhzhxvuea6552-59-92K12:13:06.021B9773-44-13W68:15:06.000Z BP Sitting (Pre-Dialysis)145/92 mmHgBP Sitting (Post-Dialysis)114/85 mmHg* Concurrent Access: false * AV Fistula Upper Arm (Left) Arterial Sitting Heart Rate Pre-Fdpzgmvk38 BPMSitting Heart Rate Post-Miuvikvy88 BPM Temperature Pre-Sbncqygj91.1 degFTemperature Post-Dbbqfqsn91.4 degFOctober 2022[facility] Zfoofiqbx0926-28-68K01:48:39.000Z 3684-59-04G91:25:40.000ZBP Sitting (Pre-Dialysis)140/96 mmHgBP Sitting (Post-Dialysis)161/100 mmHg* Concurrent Access: false * AV Fistula Upper Arm (Left) Arterial BP Standing (Pre-Dialysis)150/93 mmHgBP Standing (Post-Dialysis)130/91 mmHg Sitting Heart Rate Pre-Oezivzzw56 BPMSitting Heart Rate Post-Ukaueeqa84 BPM Standing Heart Rate Pre-Yvupclyd10 BPMStanding Heart Rate Post-Olgfnzye28 BPM Temperature Pre-Aqzausgg10 degFTemperature Post-Zacygmcj23.6 degFOctober 2022[facility] Uhuxfojnp9641-37-60A69:08:00.000Z 9011-87-41V39:10:40.000ZBP Sitting (Pre-Dialysis)136/89 mmHgBP Sitting (Post-Dialysis)132/74 mmHg* Concurrent Access: false * AV Fistula Upper Arm (Left) Arterial BP Standing (Pre-Dialysis)147/86 mmHgSitting Heart Rate Post-Wrhitcxg68 BPM Sitting Heart Rate Pre-Ycqvwbvw18 BPMTemperature Post-Nhlbmyoj95.4 degFStanding Heart Rate Pre-Scbitlhh47 BPMTemperature Pre-Gvgzkuze75.4 degFOctober 2022 [facility] Ilwqnxilw4469-27-42C63:43:39.156B9180-36-60X32:22:39.000Z BP Sitting (Pre-Dialysis)150/89 mmHgBP Sitting (Post-Dialysis)134/79 mmHg* Concurrent Access: false * AV Fistula Upper Arm (Left) Arterial BP Standing (Pre-Dialysis)159/92 mmHgBP Standing (Post-Dialysis)142/86 mmHg Sitting Heart Rate Pre-Trtzqjiz87 BPMSitting Heart Rate Post-Itnnujwq04 BPM Standing Heart Rate Pre-Bgpsxvff72 BPMStanding Heart Rate Post-Xlshvczw38 BPM Temperature Pre-Pkamzkec51.3 degFTemperature Post-Kbzuhglc80.6 degFOctober 2022[facility] Nqwcvnjqn5344-68-37M04:25:57.000Z 0635-45-75O27:34:58.000ZBP Sitting (Pre-Dialysis)139/90 mmHgBP Sitting (Post-Dialysis)121/78 mmHg* Concurrent Access: false * AV Fistula Upper Arm (Left) Arterial Sitting Heart Rate Pre-Epafomxu98 BPMBP Standing (Post-Dialysis)127/81 mmHg Temperature Pre-Erfhqtcw58 degFSitting Heart Rate Post-Iurolybj64 BPMStanding Heart Rate Post-Mvapnxck29 BPMTemperature Post-Hwxkspsh35.4 [facility]FOctober 2022 [facility] Sjaiebqyj6946-25-86Z76:19:57.361W9625-16-72J26:26:58.000Z BP Sitting (Pre-Dialysis)139/85 mmHgBP Sitting (Post-Dialysis)118/70 mmHg* Concurrent Access: false * AV Fistula Upper Arm (Left) Arterial BP Standing (Pre-Dialysis)146/89 mmHgBP Standing (Post-Dialysis)127/68 mmHg Sitting Heart Rate Pre-Kxxppbuh96 BPMSitting Heart Rate Post-Xcfyndqp91 BPM Standing Heart Rate Pre-Qkjtkzrc78 BPMStanding Heart Rate Post-Zenlfqiu28 BPM Temperature Pre-Dkqhznad97.3 degFTemperature Post-Yinhvpbx80.8 degFOctober 2022[facility] Kbcpucokd2682-48-68R01:58:58.000Z 9607-49-62N53:58:58.000ZBP Sitting (Pre-Dialysis)153/86 mmHgBP Sitting (Post-Dialysis)122/71 mmHg* Concurrent Access: false * AV Fistula Upper Arm (Left) Arterial Sitting Heart Rate Pre-Umlmricq18 BPMBP Standing (Post-Dialysis)116/74 mmHg Temperature Pre-Mrttxvqs06.2 degFSitting Heart Rate Post-Rmtucfvq29 BPMStanding Heart Rate Post-Pchmznoh643 BPMTemperature Post-Nfbgwyvw24.5 degFOctober 2022[facility] Gsgiyfrnu6992-27-14P54:21:12.000Z 4197-29-97T86:52:13.000ZBP Sitting (Pre-Dialysis)143/92 mmHgBP Sitting (Post-Dialysis)135/78 mmHg* Concurrent Access: false * AV Fistula Upper Arm (Left) Arterial BP Standing (Pre-Dialysis)150/93 mmHgBP Standing (Post-Dialysis)127/74 mmHg Sitting Heart Rate Pre-Chofztpz15 BPMSitting Heart Rate Post-Wqluhthy30 BPM Standing Heart Rate Pre-Wgtheueg74 BPMStanding Heart Rate Post-Aifpbmht20 BPM Temperature Pre-Sxtqmsrs83.6 degFTemperature Post-Uzjfksso50.5 degFOctober 2022[facility] Qpxqrlyue6137-54-05H61:38:00.000Z 9494-84-69S50:46:23.000ZBP Sitting (Pre-Dialysis)146/88 mmHgBP Sitting (Post-Dialysis)127/86 mmHg* Concurrent Access: false * AV Fistula Upper Arm (Left) Arterial Sitting Heart Rate Pre-Bdmiiycy35 BPMSitting Heart Rate Post-Ufafuutx16 BPM Temperature Pre-Giwthpmb98 degFTemperature Post-Zruuprog71.3 degFOctober 2022[facility] Sqnzhgyfj5334-49-84D21:19:12.000Z 8023-92-60Q89:24:13.000ZBP Sitting (Pre-Dialysis)144/93 mmHgBP Sitting (Post-Dialysis)158/90 mmHg* Concurrent Access: false * AV Fistula Upper Arm (Left) Arterial Sitting Heart Rate Pre-Nouqoesc50 BPMBP Standing (Post-Dialysis)132/88 mmHg Temperature Pre-Jyamrocy39 degFSitting Heart Rate Post-Wwxvspoz03 BPMStanding Heart Rate Post-Hdorwqxf12 BPMTemperature Post-Qulpogcz02.2 degFOctober 2022 [facility] Cfxzorkzc5984-36-00I53:21:50.855X3775-85-02K60:28:55.000Z BP Sitting (Pre-Dialysis)145/92 mmHgBP Sitting (Post-Dialysis)117/74 mmHg* Concurrent Access: false * AV Fistula Upper Arm (Left) Arterial Sitting Heart Rate Pre-Dseejdun36 BPMBP Standing (Post-Dialysis)125/84 mmHg Temperature Pre-Wonhouhc56 degFSitting Heart Rate Post-Lkfoxaum03 BPMStanding Heart Rate Post-Vskrrjvt260 BPMTemperature Post-Milbuwwe45.6 degFOctober 2022In-Center Hemodialysis Vxjnfnrie0176-10-61M73:14:00.000Z 6437-88-78Z70:01:51.000ZBP Sitting (Pre-Dialysis)135/82 mmHgBP Sitting (Post-Dialysis)106/67 mmHg* Concurrent Access: false * AV Fistula Upper Arm (Left) Arterial Sitting Heart Rate Pre-Mkjxjcha13 BPMBP Standing (Post-Dialysis)112/72 mmHg Temperature Pre-Bojtodzf24.2 degFSitting Heart Rate Post-Mqxvrwgl63 BPMStanding Heart Rate Post-Kygrymkm50 BPMTemperature Post-Jnwbwqwo57.8 degFOctober 2022 In-Center Hemodialysis Lhataycko9075-20-64B59:15:50.521Z6040-83-63R12:13:51.000Z BP Sitting (Pre-Dialysis)13/89 mmHgBP Sitting (Post-Dialysis)131/76 mmHg* Concurrent Access: false * AV Fistula Upper Arm (Left) Arterial Sitting Heart Rate Pre-Botmsvmm87 BPMBP Standing (Post-Dialysis)138/88 mmHg Temperature Pre-Qxmqzvdq80 degFSitting Heart Rate Post-Czyhbuoz60 BPMStanding Heart Rate Post-Ecjemqbt620 BPMTemperature Post-Ffiykuxb11.2 degFSeptember 2022In-Center Hemodialysis Rhzjqbovm3810-62-74B19:05:28.000Z 1562-06-64J43:39:28.000ZBP Sitting (Pre-Dialysis)136/83 mmHgBP Sitting (Post-Dialysis)116/78 mmHg* Concurrent Access: false * AV Fistula Upper Arm (Left) Arterial BP Standing (Pre-Dialysis)147/90 mmHgBP Standing (Post-Dialysis)129/86 mmHg Sitting Heart Rate Pre-Xhtbmvdt08 BPMSitting Heart Rate Post-Hytiziro21 BPM Standing Heart Rate Pre-Yrtixemk66 BPMStanding Heart Rate Post-Dsffndrb54 BPM Temperature Pre-Twkflgph22.3 degFTemperature Post-Hzjnfupo72.6 degFSeptember 2022[facility] Todedlddk6240-69-43O01:14:03.000Z 3252-28-55X59:49:03.000ZBP Sitting (Pre-Dialysis)133/84 mmHgBP Sitting (Post-Dialysis)121/68 mmHg* Concurrent Access: false * AV Fistula Upper Arm (Left) Arterial BP Standing (Pre-Dialysis)147/85 mmHgBP Standing (Post-Dialysis)131/83 mmHg Sitting Heart Rate Pre-Tjhmvgas44 BPMSitting Heart Rate Post-Qgwtmlph36 BPM Standing Heart Rate Pre-Hxqvnfvr23 BPMStanding Heart Rate Post-Onzmgjqo203 BPM Temperature Pre-Ghsfrxwa35.2 degFTemperature Post-Wezbkpxn00.2 degFSeptember 2022[facility] Ujlijsotz2712-06-14S24:18:03.000Z 3203-28-27Y43:32:03.000ZBP Sitting (Pre-Dialysis)133/90 mmHgBP Sitting (Post-Dialysis)117/80 mmHg* Concurrent Access: false * AV Fistula Upper Arm (Left) Arterial Sitting Heart Rate Pre-Nikprmbm24 BPMBP Standing (Post-Dialysis)121/67 mmHg Temperature Pre-Fsqshcii46 degFSitting Heart Rate Post-Yvejtdai24 BPMStanding Heart Rate Post-Ufhopmfy42 BPMTemperature Post-Ovgjlejr30.2 degFSeptember 2022[facility] Nowpicnzm3588-23-17J13:29:25.000Z 7730-64-51O06:33:25.000ZBP Sitting (Pre-Dialysis)127/83 mmHgBP Sitting (Post-Dialysis)127/72 mmHg* Concurrent Access: false * AV Fistula Upper Arm (Left) Arterial BP Standing (Pre-Dialysis)127/87 mmHgBP Standing (Post-Dialysis)126/90 mmHg Sitting Heart Rate Pre-Jswfjupe34 BPMSitting Heart Rate Post-Nenxkajn01 BPM Standing Heart Rate Pre-Zfoaeckk70 BPMStanding Heart Rate Post-Pgszxewt95 BPM Temperature Pre-Ypawnjss97.1 degFTemperature Post-Reoltivn61.2 degFSeptember 2022[facility] Mifwkyehp1095-08-26G45:16:24.000Z 3512-89-54P03:02:25.000ZBP Sitting (Pre-Dialysis)131/80 mmHgBP Sitting (Post-Dialysis)126/80 mmHg* Concurrent Access: false * AV Fistula Upper Arm (Left) Arterial BP Standing (Pre-Dialysis)146/79 mmHgSitting Heart Rate Post-Vednvica50 BPM Sitting Heart Rate Pre-Beiyihif55 BPMTemperature Post-Ytpfbanw11.4 degFStanding Heart Rate Pre-Xegzivjg92 BPMTemperature Pre-Xjhrcpbu73.1 degFSeptember 2022 [facility] Umpxrdqym0648-40-58K68:12:24.209N1808-62-00T39:14:25.000Z BP Sitting (Pre-Dialysis)154/90 mmHgBP Sitting (Post-Dialysis)148/92 mmHg* Concurrent Access: false * AV Fistula Upper Arm (Left) Arterial BP Standing (Pre-Dialysis)171/96 mmHgBP Standing (Post-Dialysis)137/87 mmHg Sitting Heart Rate Pre-Xzkkoyte02 BPMSitting Heart Rate Post-Awgeeobw13 BPM Standing Heart Rate Pre-Gogewdns25 BPMStanding Heart Rate Post-Ogesptji86 BPM Temperature Pre-Gtvnqsev23.6 degFTemperature Post-Jhdfajvz75.1 degFSeptember 2022[facility] Tjojvetir2907-76-39Q15:12:31.000Z 0987-37-14U75:51:32.000ZBP Sitting (Pre-Dialysis)141/70 mmHgBP Sitting (Post-Dialysis)145/89 mmHg* Concurrent Access: false * AV Fistula Upper Arm (Left) Arterial BP Standing (Pre-Dialysis)137/67 mmHgBP Standing (Post-Dialysis)135/75 mmHg Sitting Heart Rate Pre-Ymoqsvoq19 BPMSitting Heart Rate Post-Wraqlccc88 BPM Standing Heart Rate Pre-Pmeyrnwe53 BPMStanding Heart Rate Post-Sxnswnnw49 BPM Temperature Pre-Bzisnddo72.3 degFTemperature Post-Csdiwaym84.6 degFSeptember 2022[facility] Udzvprszv2849-62-47J00:12:31.000Z 8130-87-77F68:14:32.000ZBP Sitting (Pre-Dialysis)132/91 mmHgBP Sitting (Post-Dialysis)125/85 mmHg* Concurrent Access: false * AV Fistula Upper Arm (Left) Arterial BP Standing (Pre-Dialysis)140/89 mmHgBP Standing (Post-Dialysis)125/78 mmHg Sitting Heart Rate Pre-Ujojgfly38 BPMSitting Heart Rate Post-Nvupcpxo08 BPM Standing Heart Rate Pre-Xmemnync25 BPMStanding Heart Rate Post-Fagenyrz11 BPM Temperature Pre-Snpnikpf03.1 degFTemperature Post-Zyosykms93.6 degFSept2022[facility] Ltmmegqrb2316-96-63G37:29:31.000Z 7363-46-71G88:36:32.000ZBP Sitting (Pre-Dialysis)119/74 mmHgBP Sitting (Post-Dialysis)135/82 mmHg* Concurrent Access: false * AV Fistula Upper Arm (Left) Arterial BP Standing (Pre-Dialysis)126/76 mmHgBP Standing (Post-Dialysis)122/78 mmHg Sitting Heart Rate Pre-Fhdcdddb18 BPMSitting Heart Rate Post-Vsxdsopw40 BPM Standing Heart Rate Pre-Ryixjvjf59 BPMStanding Heart Rate Post-Awwnzfsb474 BPM Temperature Pre-Tinhxjmn37.2 degFTemperature Post-Aldzcfrm24.2 degFSeptember 2022[facility] Yhorwpvli9710-50-57H52:10:10.000Z 4841-24-44Z88:51:09.000ZBP Sitting (Pre-Dialysis)132/83 mmHgBP Sitting (Post-Dialysis)107/70 mmHg* Concurrent Access: false * AV Fistula Upper Arm (Left) Arterial Sitting Heart Rate Pre-Alstjldu71 BPMBP Standing (Post-Dialysis)110/74 mmHg Temperature Pre-Pzxkqrgh34 degFSitting Heart Rate Post-Vvbijvxa530 BPMStanding Heart Rate Post-Lqthfrsh044 BPMTemperature Post-Fjvzgmbj70.2 degFSeptember 2022[facility] Ucatrtjec9047-33-10P20:12:09.000Z 5834-94-36V10:12:00.000ZBP Sitting (Pre-Dialysis)142/89 mmHgBP Sitting (Post-Dialysis)118/73 mmHg* Concurrent Access: false * AV Fistula Upper Arm (Left) Arterial Sitting Heart Rate Pre-Myldnwbd20 BPMBP Standing (Post-Dialysis)120/72 mmHg Temperature Pre-Pplehoey46.2 degFSitting Heart Rate Post-Cpkwcfwd07 BPMStanding Heart Rate Post-Esxcnggm99 BPMTemperature Post-Bufrumtx70.6 degFSeptember 2022[facility] Vmzmbkysu0302-02-18Z32:27:09.000Z 3449-49-58T72:15:09.000ZBP Sitting (Pre-Dialysis)122/73 mmHgBP Sitting (Post-Dialysis)134/78 mmHg* Concurrent Access: false * AV Fistula Upper Arm (Left) Arterial BP Standing (Pre-Dialysis)128/73 mmHgBP Standing (Post-Dialysis)126/74 mmHg Sitting Heart Rate Pre-Mroaapbr15 BPMSitting Heart Rate Post-Ugtapgaa38 BPM Standing Heart Rate Pre-Gxstnifx54 BPMStanding Heart Rate Post-Qcqmwehc87 BPM Temperature Pre-Nzpfativ84 degFTemperature Post-Jrigzqhg91.4 degFSeptember 2022[facility] Vabqebvwx4195-67-06T51:36:43.000Z 7662-19-72V23:01:43.000ZBP Sitting (Pre-Dialysis)141/83 mmHgBP Sitting (Post-Dialysis)131/76 mmHg* Concurrent Access: false * AV Fistula Upper Arm (Left) Arterial BP Standing (Pre-Dialysis)150/95 mmHgSitting Heart Rate Post-Jvscohdx06 BPM Sitting Heart Rate Pre-Dupacvwr46 BPMTemperature Post-Srriatuz42.3 degFStanding Heart Rate Pre-Oyrzpzmo04 BPMTemperature Pre-Fzybilmt25.6 degFAugust 2022[facility] Xwgxdngxi4062-65-94L81:20:42.833T9817-54-78X23:27:43.000ZBP Sitting (Pre-Dialysis)129/81 mmHgBP Sitting (Post-Dialysis)123/86 mmHg* Concurrent Access: false * AV Fistula Upper Arm (Left) Arterial BP Standing (Pre-Dialysis)136/93 mmHgBP Standing (Post-Dialysis)123/87 mmHg Sitting Heart Rate Pre-Zfbdacqj40 BPMSitting Heart Rate Post-Sfxbycim72 BPM Standing Heart Rate Pre-Qccaxnjl68 BPMStanding Heart Rate Post-Xgbqcfsk65 BPM Temperature Pre-Rbnelbav78.2 degFTemperature Post-Obbyfckx69.6 degFAugust 2022[facility] Bednmlvla9086-59-79W09:34:09.000Z 7559-17-08X72:39:09.000ZBP Sitting (Pre-Dialysis)141/82 mmHgBP Sitting (Post-Dialysis)108/69 mmHg* Concurrent Access: false * AV Fistula Upper Arm (Left) Arterial BP Standing (Pre-Dialysis)145/90 mmHgBP Standing (Post-Dialysis)101/75 mmHg Sitting Heart Rate Pre-Duhaelso08 BPMSitting Heart Rate Post-Iwcknhvr15 BPM Standing Heart Rate Pre-Zavfohwy62 BPMStanding Heart Rate Post-Fxrpkwag22 BPM Temperature Pre-Qwhfovzg79.2 degFTemperature Post-Apaikdsz14.8 degFAugust 2022[facility] Geuhfnllv2203-39-65P75:36:09.000Z 5472-56-03Z36:27:09.000ZBP Sitting (Pre-Dialysis)130/81 mmHgBP Sitting (Post-Dialysis)117/81 mmHg* Concurrent Access: false * AV Fistula Upper Arm (Left) Arterial BP Standing (Pre-Dialysis)131/79 mmHgSitting Heart Rate Post-Txmhwnye37 BPM Sitting Heart Rate Pre-Bayjislo19 BPMTemperature Post-Nxherkba06.6 degFStanding Heart Rate Pre-Tujjqdyp69 BPMTemperature Pre-Lfpagtkf10.2 degFAugust 2022[facility] Ujfnbylsx4834-68-19J59:16:29.715A2985-67-39W48:20:29.000ZBP Sitting (Pre-Dialysis)128/77 mmHgBP Sitting (Post-Dialysis)129/91 mmHg* Concurrent Access: false * AV Fistula Upper Arm (Left) Arterial BP Standing (Pre-Dialysis)140/84 mmHgBP Standing (Post-Dialysis)137/84 mmHg Sitting Heart Rate Pre-Khejhezh97 BPMSitting Heart Rate Post-Pojofjcg51 BPM Standing Heart Rate Pre-Affsyuei58 BPMStanding Heart Rate Post-Gphqyyoz83 BPM Temperature Pre-Zfmssibe61.4 degFTemperature Post-Dfaamisd54.2 degFAugust 2022[facility] Rhdmnzten1312-28-98X50:12:29.000Z 9666-16-02D18:49:29.000ZBP Sitting (Pre-Dialysis)130/90 mmHgBP Sitting (Post-Dialysis)128/85 mmHg* Concurrent Access: false * AV Fistula Upper Arm (Left) Arterial BP Standing (Pre-Dialysis)136/84 mmHgBP Standing (Post-Dialysis)127/84 mmHg Sitting Heart Rate Pre-Zgctjgwx66 BPMSitting Heart Rate Post-Amiucrqj04 BPM Standing Heart Rate Pre-Kuiiswoy64 BPMStanding Heart Rate Post-Qqkzqiqa94 BPM Temperature Pre-Mfiztgin12.3 degFTemperature Post-Mhyibwcv39.3 degFAugust 2022[facility] Kdegintxx6766-58-94E50:29:45.000Z 8045-65-28J25:58:45.000ZBP Sitting (Pre-Dialysis)125/78 mmHgBP Sitting (Post-Dialysis)106/87 mmHg* Concurrent Access: false * AV Fistula Upper Arm (Left) Arterial BP Standing (Pre-Dialysis)119/74 mmHgSitting Heart Rate Post-Odgqfepg98 BPM Sitting Heart Rate Pre-Aoivwzkf45 BPMTemperature Post-Volhhhle50.7 degFStanding Heart Rate Pre-Vrfwdkul25 BPMTemperature Pre-Wfmbjbyz15.7 degFAugust 2022[facility] Xuhojuapu8205-95-08F41:19:45.020J3262-35-76M78:22:45.000ZBP Sitting (Pre-Dialysis)129/96 mmHgBP Sitting (Post-Dialysis)113/75 mmHg* Concurrent Access: false * AV Fistula Upper Arm (Left) Arterial BP Standing (Pre-Dialysis)118/78 mmHgBP Standing (Post-Dialysis)110/65 mmHg Sitting Heart Rate Pre-Uitqowku81 BPMSitting Heart Rate Post-Rwczfbkp89 BPM Standing Heart Rate Pre-Njkmnneg11 BPMStanding Heart Rate Post-Ketrzurm73 BPM Temperature Pre-Yikzrule79.6 degFTemperature Post-Odpqetwd75.6 degFAugust 2022[facility] Gtghaafiy6220-30-99T96:32:45.000Z 8378-49-59Q86:39:45.000ZBP Sitting (Pre-Dialysis)140/78 mmHgBP Sitting (Post-Dialysis)149/87 mmHg* Concurrent Access: false * AV Fistula Upper Arm (Left) Arterial BP Standing (Pre-Dialysis)134/85 mmHgBP Standing (Post-Dialysis)129/78 mmHg Sitting Heart Rate Pre-Vndwcype33 BPMSitting Heart Rate Post-Gtnausdt69 BPM Standing Heart Rate Pre-Dtrxxkik34 BPMStanding Heart Rate Post-Rmfsyqok00 BPM Temperature Pre-Kbokyhcp83.3 degFTemperature Post-Moxjrslb22.3 degFAugust 2022[facility] Nzgrsreos5142-77-86R24:27:56.000Z 8581-57-17R67:36:11.000ZBP Sitting (Pre-Dialysis)127/63 mmHgBP Sitting (Post-Dialysis)108/66 mmHg* Concurrent Access: false * AV Fistula Upper Arm (Left) Arterial BP Standing (Pre-Dialysis)128/78 mmHgBP Standing (Post-Dialysis)118/76 mmHg Sitting Heart Rate Pre-Cgbweuwi24 BPMSitting Heart Rate Post-Dajcxmag46 BPM Standing Heart Rate Pre-Zbhxiirm29 BPMStanding Heart Rate Post-Liubhilm97 BPM Temperature Pre-Lacfkcbj17.3 degFTemperature Post-Qzwyfyxc88.3 degFAugust 2022[facility] Httaehblq9974-39-86S39:10:32.000Z 3176-65-13W03:01:32.000ZBP Sitting (Pre-Dialysis)145/82 mmHgBP Sitting (Post-Dialysis)105/58 mmHg* Concurrent Access: false * AV Fistula Upper Arm (Left) Arterial BP Standing (Pre-Dialysis)134/80 mmHgBP Standing (Post-Dialysis)103/68 mmHg Sitting Heart Rate Pre-Ycohmjro42 BPMSitting Heart Rate Post-Sjqlzgzl23 BPM Standing Heart Rate Pre-Krapyuyg76 BPMStanding Heart Rate Post-Arzmdynt24 BPM Temperature Pre-Yrrfqkqf97.3 degFTemperature Post-Zceqoxkf14.2 degFAugust 2022[facility] Dfcnhbwaa3433-75-52V40:36:22.000Z 1768-36-38G20:57:45.000ZBP Sitting (Pre-Dialysis)134/84 mmHgBP Sitting (Post-Dialysis)124/77 mmHg* Concurrent Access: false * AV Fistula Upper Arm (Left) Arterial BP Standing (Pre-Dialysis)142/93 mmHgBP Standing (Post-Dialysis)125/76 mmHg Sitting Heart Rate Pre-Ztvpsnxc62 BPMSitting Heart Rate Post-Ogiqaevf63 BPM Standing Heart Rate Pre-Huwhzpcw44 BPMStanding Heart Rate Post-Erjfgomx05 BPM Temperature Pre-Dczhjxyg76.2 degFTemperature Post-Zolpjyss19.3 degFAugust 2022[facility] Rzthhzrnz3627-70-68U13:53:20.000Z 3896-47-11W21:25:20.000ZBP Sitting (Pre-Dialysis)125/86 mmHgBP Sitting (Post-Dialysis)100/64 mmHg* Concurrent Access: false * AV Fistula Upper Arm (Left) Arterial BP Standing (Pre-Dialysis)147/90 mmHgBP Standing (Post-Dialysis)144/77 mmHg Sitting Heart Rate Pre-Setbaxqw75 BPMSitting Heart Rate Post-Ekmzajwo51 BPM Standing Heart Rate Pre-Xmjomsrb57 BPMStanding Heart Rate Post-Ywhjirpk66 BPM Temperature Pre-Dlhlptrj86.8 degFTemperature Post-Qgioawce06.2 degFAugust 2022[facility] Hnfeefqoi2556-19-37C94:11:20.000Z 6556-75-54Y04:12:20.000ZBP Sitting (Pre-Dialysis)126/82 mmHgBP Sitting (Post-Dialysis)118/63 mmHg* Concurrent Access: false * AV Fistula Upper Arm (Left) Arterial BP Standing (Pre-Dialysis)120/86 mmHgBP Standing (Post-Dialysis)128/63 mmHg Sitting Heart Rate Pre-Gyouvpfp39 BPMSitting Heart Rate Post-Xbluvxey03 BPM Standing Heart Rate Pre-Otxytxjt44 BPMStanding Heart Rate Post-Qnvhapat69 BPM Temperature Pre-Qoejedun28 degFTemperature Post-Hqcbxcrl04.2 degFAugust 2022 [facility] Qktprsiry3619-37-75G06:35:20.830Z8649-68-57A70:35:20.000Z BP Sitting (Pre-Dialysis)125/80 mmHgBP Sitting (Post-Dialysis)104/75 mmHg* Concurrent Access: false * AV Fistula Upper Arm (Left) Arterial BP Standing (Pre-Dialysis)130/80 mmHgBP Standing (Post-Dialysis)100/70 mmHg Sitting Heart Rate Pre-Dseflslz84 BPMSitting Heart Rate Post-Atmfuftp94 BPM Standing Heart Rate Pre-Hxgegrts48 BPMStanding Heart Rate Post-Weogsegc942 BPM Temperature Pre-Prxszxkt32.6 degFTemperature Post-Kfoqxshp86.3 degFJu 2022 [facility] Ztccrdqfz0982-96-39O15:08:01.650Y0683-96-88X17:07:02.000Z BP Sitting (Pre-Dialysis)126/82 mmHgBP Sitting (Post-Dialysis)108/66 mmHg* Concurrent Access: false * AV Fistula Upper Arm (Left) Arterial BP Standing (Pre-Dialysis)143/88 mmHgBP Standing (Post-Dialysis)109/72 mmHg Sitting Heart Rate Pre-Qluxokaf09 BPMSitting Heart Rate Post-Gpnpyjrz26 BPM Standing Heart Rate Pre-Mqcvpunj65 BPMStanding Heart Rate Post-Pkcolpfm740 BPM Temperature Pre-Xczrszqw12.3 degFTemperature Post-Pplzcxzz22.3 degFJuly 2022 [facility] Wfwbpiqkb3341-72-34Z34:16:01.215T5435-59-30R00:17:01.000Z BP Sitting (Pre-Dialysis)132/85 mmHgBP Sitting (Post-Dialysis)135/67 mmHg* Concurrent Access: false * AV Fistula Upper Arm (Left) Arterial BP Standing (Pre-Dialysis)136/92 mmHgBP Standing (Post-Dialysis)122/71 mmHg Sitting Heart Rate Pre-Sqvvyyts50 BPMSitting Heart Rate Post-Gczefqpd35 BPM Standing Heart Rate Pre-Ykytojeb64 BPMStanding Heart Rate Post-Svheztgl57 BPM Temperature Pre-Oxnotoot63.2 degFTemperature Post-Gqucxotp72.3 degFJuly 2022 [facility] Kupbxsadc6182-87-76E17:11:01.003F1033-40-60E96:12:01.000Z BP Sitting (Pre-Dialysis)139/86 mmHgBP Sitting (Post-Dialysis)120/81 mmHg* Concurrent Access: false * AV Fistula Upper Arm (Left) Arterial BP Standing (Pre-Dialysis)140/91 mmHgSitting Heart Rate Post-Lpwbcipa96 BPM Sitting Heart Rate Pre-Ynzhqamg76 BPMTemperature Post-Xsuxwzkb71.4 degFStanding Heart Rate Pre-Axslermf81 BPMTemperature Pre-Akzjqjit92.4 degFJuly 2022[facility] Flssoavrl7676-94-81Z60:38:35.849X1882-96-64Z60:38:36.000ZBP Sitting (Pre-Dialysis)133/83 mmHgBP Sitting (Post-Dialysis)110/67 mmHg* Concurrent Access: false * AV Fistula Upper Arm (Left) Arterial BP Standing (Pre-Dialysis)130/88 mmHgBP Standing (Post-Dialysis)114/75 mmHg Sitting Heart Rate Pre-Mnsjhjdx77 BPMSitting Heart Rate Post-Wjansuym88 BPM Standing Heart Rate Pre-Zomwnfol95 BPMStanding Heart Rate Post-Kxbnogmx905 BPM Temperature Pre-Kftjysgv29.3 degFTemperature Post-Qxqnxcgm41.3 degFJuly 2022 [facility] Iysnvkzuc1465-00-60Z65:10:00.636N8663-38-53B34:50:35.000Z BP Sitting (Pre-Dialysis)117/76 mmHgBP Sitting (Post-Dialysis)109/77 mmHg* Concurrent Access: false * AV Fistula Upper Arm (Left) Arterial BP Standing (Pre-Dialysis)118/75 mmHgBP Standing (Post-Dialysis)119/71 mmHg Sitting Heart Rate Pre-Nezofcgf46 BPMSitting Heart Rate Post-Obhdybih49 BPM Standing Heart Rate Pre-Xqhajylr82 BPMStanding Heart Rate Post-Ebtvgufx55 BPM Temperature Pre-Hecinyug69.2 degFTemperature Post-Mdzekrve74.6 degFJuly 2022 [facility] Jrlizgync3100-63-44G40:32:35.278Y2269-15-52P56:58:00.000Z BP Sitting (Pre-Dialysis)141/87 mmHgBP Sitting (Post-Dialysis)148/86 mmHg* Concurrent Access: false * AV Fistula Upper Arm (Left) Arterial BP Standing (Pre-Dialysis)134/88 mmHgBP Standing (Post-Dialysis)128/74 mmHg Sitting Heart Rate Pre-Itkrauss10 BPMSitting Heart Rate Post-Ihlwsuvi61 BPM Standing Heart Rate Pre-Wbhrpowt13 BPMStanding Heart Rate Post-Bgqplbxo52 BPM Temperature Pre-Ngrcnmew99.3 degFTemperature Post-Ulpyoctx68.5 degFJuly 2022 [facility] Frxbgpekv4469-06-98Y14:08:09.930K9877-24-23V00:40:09.000Z BP Sitting (Pre-Dialysis)121/76 mmHgBP Sitting (Post-Dialysis)126/76 mmHg* Concurrent Access: false * AV Fistula Upper Arm (Left) Arterial BP Standing (Pre-Dialysis)136/84 mmHgBP Standing (Post-Dialysis)134/68 mmHg Sitting Heart Rate Pre-Jwvucomh09 BPMSitting Heart Rate Post-Xvueeunr95 BPM Standing Heart Rate Pre-Klvpxugl96 BPMStanding Heart Rate Post-Mtvxnpps86 BPM Temperature Pre-Qihtrkvv18.3 degFTemperature Post-Ycortkbb20.6 degFJuly 2022 [facility] Pwxzmsiqg0310-97-00R03:14:09.678N3314-54-82S90:47:09.000Z BP Sitting (Pre-Dialysis)122/71 mmHgBP Sitting (Post-Dialysis)122/75 mmHg* Concurrent Access: false * AV Fistula Upper Arm (Left) Arterial BP Standing (Pre-Dialysis)122/72 mmHgBP Standing (Post-Dialysis)125/82 mmHg Sitting Heart Rate Pre-Vwxmgpth13 BPMSitting Heart Rate Post-Bumtkouy69 BPM Standing Heart Rate Pre-Bmadrvan23 BPMStanding Heart Rate Post-Ulidkonp68 BPM Temperature Pre-Exjrtwri54.6 degFTemperature Post-Yvixffyo67.3 degFJuly 2022 [facility] Ymifpeiys6730-47-79K57:17:12.303W6715-57-36H57:32:12.000Z BP Sitting (Pre-Dialysis)125/77 mmHgBP Sitting (Post-Dialysis)122/77 mmHg* Concurrent Access: false * AV Fistula Upper Arm (Left) Arterial Sitting Heart Rate Pre-Uwmbxbqa74 BPMBP Standing (Post-Dialysis)121/67 mmHg Temperature Pre-Wizjnxmt35 degFSitting Heart Rate Post-Xmegddwq00 BPMStanding Heart Rate Post-Ndvybubw27 BPMTemperature Post-Iaochwia98.2 degFJuly 2022[facility] Oxhyiusdi9907-59-10U47:28:26.818S5822-13-30F09:31:26.000ZBP Sitting (Pre-Dialysis)124/68 mmHgBP Sitting (Post-Dialysis)104/66 mmHg* Concurrent Access: false * AV Fistula Upper Arm (Left) Arterial BP Standing (Pre-Dialysis)117/74 mmHgBP Standing (Post-Dialysis)114/74 mmHg Sitting Heart Rate Pre-Khzlvumm59 BPMSitting Heart Rate Post-Qthnfjiw26 BPM Standing Heart Rate Pre-Ntbjdixc25 BPMStanding Heart Rate Post-Amlqdpmn46 BPM Temperature Pre-Tdodqclt59 degFTemperature Post-Ukooelrw54.6 degFJuly 2022 [facility] Yynvkkybt1102-73-54K04:30:26.953O2208-71-22N74:35:26.000Z BP Sitting (Pre-Dialysis)99/66 mmHgBP Sitting (Post-Dialysis)98/66 mmHg* Concurrent Access: false * AV Fistula Upper Arm (Left) Arterial BP Standing (Pre-Dialysis)102/67 mmHgBP Standing (Post-Dialysis)110/69 mmHg Sitting Heart Rate Pre-Yacrzkiy81 BPMSitting Heart Rate Post-Xynnajfs23 BPM Standing Heart Rate Pre-Erwwxcwv52 BPMStanding Heart Rate Post-Jafxqegz09 BPM Temperature Pre-Qtnanqpy39.5 degFTemperature Post-Wjwiwhob93.6 degFJuly 2022 [facility] Jhkoufain7400-94-87A66:42:00.769C2355-34-12S75:39:29.000Z BP Sitting (Pre-Dialysis)106/64 mmHgBP Sitting (Post-Dialysis)101/65 mmHg* Concurrent Access: false * AV Fistula Upper Arm (Left) Arterial BP Standing (Pre-Dialysis)116/67 mmHgBP Standing (Post-Dialysis)112/69 mmHg Sitting Heart Rate Pre-Theblklk23 BPMSitting Heart Rate Post-Gcpajrdz40 BPM Standing Heart Rate Pre-Qlkbpmgv02 BPMStanding Heart Rate Post-Yexgkiku74 BPM Temperature Pre-Mxtyxszy85 degFTemperature Post-Imlfhztx64.2 degFJuly 2022 [facility] Yccsiumwg5318-52-25T45:48:00.894H3070-28-49Q15:38:29.000Z BP Sitting (Pre-Dialysis)115/67 mmHgBP Sitting (Post-Dialysis)120/71 mmHg* Concurrent Access: false * AV Fistula Upper Arm (Left) Arterial BP Standing (Pre-Dialysis)126/72 mmHgBP Standing (Post-Dialysis)105/70 mmHg Sitting Heart Rate Pre-Eqcdtgdx12 BPMSitting Heart Rate Post-Erkdnxtu33 BPM Standing Heart Rate Pre-Dglkuvwb27 BPMStanding Heart Rate Post-Wfkcsmho57 BPM Temperature Pre-Oopckdef95.8 degFTemperature Post-Xmldgctq82.4 degFJune 2022 [facility] Rspszhzqo1782-79-03G94:26:28.989Q3134-52-35H51:27:29.000Z BP Sitting (Pre-Dialysis)86/56 mmHgBP Sitting (Post-Dialysis)96/61 mmHg* Concurrent Access: false * AV Fistula Upper Arm (Left) Arterial BP Standing (Pre-Dialysis)94/50 mmHgBP Standing (Post-Dialysis)111/82 mmHg Sitting Heart Rate Pre-Phtiyfyh57 BPMSitting Heart Rate Post-Bgispvwr97 BPM Standing Heart Rate Pre-Jtsadwwx25 BPMStanding Heart Rate Post-Qqvwsbhe41 BPM Temperature Pre-Elsjdykh07.2 degFTemperature Post-Faxqwnhk82.7 degFJune 2022 [facility] Qtsbbieeq5796-56-06T23:17:28.735C9022-67-74F06:11:00.000Z BP Sitting (Pre-Dialysis)105/67 mmHgBP Sitting (Post-Dialysis)96/70 mmHg* Concurrent Access: false * AV Fistula Upper Arm (Left) Arterial BP Standing (Pre-Dialysis)116/71 mmHgBP Standing (Post-Dialysis)107/65 mmHg Sitting Heart Rate Pre-Qmplppgr68 BPMSitting Heart Rate Post-Tuzbrfin35 BPM Standing Heart Rate Pre-Mirwvrlm99 BPMStanding Heart Rate Post-Fvivhamv918 BPM Temperature Pre-Liryjizw35 degFTemperature Post-Ofxuiavd12.4 degFJune 2022 [facility] Xuomqcazk8403-49-51A11:14:00.898Y9722-72-68G22:31:00.000Z BP Sitting (Pre-Dialysis)92/59 mmHgBP Sitting (Post-Dialysis)93/68 mmHg* Concurrent Access: false * AV Fistula Upper Arm (Left) Arterial BP Standing (Pre-Dialysis)94/59 mmHgBP Standing (Post-Dialysis)94/65 mmHgSitting Heart Rate Pre-Pupochtv37 BPMSitting Heart Rate Post-Iphejqwk032 BPMStanding Heart Rate Pre-Cblwliyq99 BPMStanding Heart Rate Post-Ppbaptgx235 BPMTemperature Pre-Pgypchzu79.6 degFTemperature Post-Zkhnynok94.6 degFJune 2022[facility] Ajslntmcb0908-32-32C23:17:00.970V5493-12-44M73:21:01.000ZBP Sitting (Pre-Dialysis)117/72 mmHgBP Sitting (Post-Dialysis)106/67 mmHg* Concurrent Access: false * AV Fistula Upper Arm (Left) Arterial BP Standing (Pre-Dialysis)117/71 mmHgSitting Heart Rate Post-Sfvtujqw33 BPM Sitting Heart Rate Pre-Whzrrguv86 BPMTemperature Post-Elwokwxe02.4 degFStanding Heart Rate Pre-Xmzyjhvf18 BPMTemperature Pre-Wdeknghs40.8 degFJune 2022[facility] Jlfqehays2461-46-61B83:24:00.049W9276-80-12X13:13:01.000ZBP Sitting (Pre-Dialysis)108/62 mmHgBP Sitting (Post-Dialysis)99/56 mmHg* Concurrent Access: false * AV Fistula Upper Arm (Left) Arterial BP Standing (Pre-Dialysis)104/65 mmHgBP Standing (Post-Dialysis)112/64 mmHg Sitting Heart Rate Pre-Oketrjwv17 BPMSitting Heart Rate Post-Oaqcnuts21 BPM Standing Heart Rate Pre-Bvpiyqki61 BPMStanding Heart Rate Post-Bsejwhio040 BPM Temperature Pre-Zwcuitll37.4 degFTemperature Post-Nkqgaxtz69.4 degFJune 2022 [facility]Center Hemod[facility] Vsdwairay5598-60-44S96:08:00.590Z5249-22-92H79:16:07.000Z BP Sitting (Pre-Dialysis)102/51 mmHgBP Sitting (Post-Dialysis)106/67 mmHg* Concurrent Access: false * AV Fistula Upper Arm (Left) Arterial BP Standing (Pre-Dialysis)113/67 mmHgBP Standing (Post-Dialysis)114/71 mmHg Sitting Heart Rate Pre-Zmljnprw85 BPMSitting Heart Rate Post-Kuknmbyb41 BPM Standing Heart Rate Pre-Tpenughw38 BPMStanding Heart Rate Post-Vjlyawss44 BPM Temperature Pre-Dugculej42.2 degFTemperature Post-Ixdmojbf28.8 degFJune 2022 In-Center Hemodialysis Nslfqbbok1019-76-79O13:36:07.808G6713-89-14Z87:39:07.000Z BP Sitting (Pre-Dialysis)107/71 mmHgBP Sitting (Post-Dialysis)107/64 mmHg* Concurrent Access: false * AV Fistula Upper Arm (Left) Arterial BP Standing (Pre-Dialysis)114/67 mmHgBP Standing (Post-Dialysis)102/62 mmHg Sitting Heart Rate Pre-Laepndfy10 BPMSitting Heart Rate Post-Qiifkrcl20 BPM Standing Heart Rate Pre-Wgiuwdca10 BPMStanding Heart Rate Post-Hbbuloos33 BPM Temperature Pre-Meyngrbg75 degFTemperature Post-Geprkjtn74.2 degF Results Adequacy Description Draw Date Result/Unit Status Ref Range Result Comments WEIGHT (KG) 2024-04-17 17:57:56 99 kg F DIALYZER BAYS-CU1657-28-16 17:57:98903 mL/minFBSA BVGVAT4215-99-95 17:57:562.14 sq mFTotal Kt/V3635-84-08 17:57:561.25FWEIGHT - POST DAY 17:57:56 99.5 kgFStd Renal KT/R8461-45-66 17:57:56N/AFVM (KT/V MEAN VOL)2024-04-17 17:57:5650.1NsOKM5165-33-04 17:57:560.74 G/KG/DFTBW (Matthew)2024-04-17 17:57:56 50.34 LitersFResidual kt/v0131-14-99 17:57:56FHEIGHT IN BRSZDV1600-30-60 17:57:5669 InchesFspKt/X0065-62-87 17:57:561.25FKT/V IVHAPIKCGG2203-66-93 17:57:561.63FeKt/I6860-77-29 17:57:561.08FstdKt/V (DIAL)2024-04-17 17:57:56N/AF stdKT/V Ztyqk9931-20-65 17:57:56N/AFAMPUTATE VSFLNB6011-08-74 17:57:560FWEIGHT - PRE DAY 17:57:57897.5 kgFBLOOD WHSL-YRU3403-93-16 17:57:45964PTX (KT/V TX VOL)2024-04-17 17:57:5652.6 LFDialyzer ZSE6086-02-93 17:57:437809 CalcF LENGTH OF KGTKOLKP8655-55-42 17:57:80346 minFTOTAL HOURS/WEEK KBTIXDIR0320-55-31 17:57:5611 hrsFPRESCRIBED DAYS/OHOL8964-60-45 17:57:563 Day/WkFCURRENT KRU 2024-04-17 17:57:56FPATIENT PRA7976-63-96 17:57:5646 YearsFURR%2024-04-17 17:57:5667 %FDialyzer ZHT7186-79-38 17:57:010205 CalcFTOTAL HOURS/WEEK DIALYSIS 2024-04-17 17:57:5611 hrsFBSA RTTBHU3459-91-99 17:57:562.14 sq mFWEIGHT (KG) 2024-04-17 17:57:5699 kgFLENGTH OF UZKPSQHI5966-02-38 17:57:46728 minFDIALYZER JMUE-ME3244-74-16 17:57:72445 mL/minFCURRENT WGI8007-59-76 17:57:56FPRESCRIBED DAYS/SLBA4869-99-51 17:57:563 Day/WkFVT (KT/V TX VOL)2024-04-17 17:57:5652.6 LF Std Renal KT/L6372-17-14 17:57:56N/AFVM (KT/V MEAN VOL)2024-04-17 17:57:5650.2F HEIGHT IN WNUVDZ0666-95-26 17:57:5669 InchesFWEIGHT - POST DAY 17:57:5699.5 lvHeOBB4821-21-04 17:57:560.74 G/KG/DFspKt/V3195-38-96 17:57:561.25 FTBW (Matthew)2024-04-17 17:57:5650.34 LitersFTotal Kt/D8042-48-23 17:57:561.25F KT/V YSUWOMDXFW7864-09-04 17:57:561.63FBLOOD TKBE-ERE5812-37-16 17:57:29126C PATIENT KQT0763-12-97 17:57:5646 YearsFResidual kt/n5357-13-81 17:57:56FstdKt/V (DIAL)2024-04-17 17:57:56N/AFURR%2024-04-17 17:57:5667 %FstdKT/V Lmlti6911-32-18 17:57:56N/AFeKt/U6603-58-06 17:57:561.08FAMPUTATE OHYIWB1957-50-04 17:57:560F WEIGHT - PRE DAY 17:57:87965.5 kgFCreatinine [Mass/volume] in Serum or Qdocus9001-28-00 17:54:249.12 mg/dLF0.7-1.3Urea nitrogen [Mass/volume] in Serum or Vmbapv4672-72-02 17:54:2448 mg/dLF9.0-23.0Creatinine [Mass/volume] in Serum or Nwcwtw0106-86-75 17:54:249.12 mg/dLF0.7-1.3Urea nitrogen [Mass/volume] in Serum or Xmqiqr0980-66-20 17:54:2448 mg/dLF9.0-23.0Urea nitrogen [Mass/volume] in Serum or Plasma --post eatzfxqw3242-06-30 17:27:2316 mg/dLF 9.0-23.0Urea nitrogen [Mass/volume] in Serum or Plasma --post dpizweoy3173-88-37 17:27:2316 mg/dLF9.0-23.0Std Renal KT/P0779-14-98 00:54:08N/AFCURRENT KRU 2024-03-13 00:54:08FBSA ZIIWDX2207-54-57 00:54:082.14 sq mFstdKT/V Total 2024-03-13 00:54:08N/AFPRESCRIBED DAYS/FRKG7366-71-59 00:54:083 Day/WkFspKt/V 2024-03-13 00:54:081.29FLENGTH OF GBJGQDLT3516-92-36 00:54:13909 minFWEIGHT (KG) 2024-03-13 00:54:0899 kgFResidual kt/k3668-95-22 00:54:08FeKt/M7780-39-07 00:54:081.12FstdKt/V (DIAL)2024-03-13 00:54:08N/AFURR%2024-03-13 00:54:0869 %F TOTAL HOURS/WEEK YOZWUCOA6565-73-08 00:54:0810 yycUzJWD9231-57-12 00:54:080.74 G/KG/DFHEIGHT IN UJNSED4759-98-60 00:54:0869 InchesFTotal Kt/M8930-44-30 00:54:081.29FVM (KT/V MEAN VOL)2024-03-13 00:54:0849.4FDIALYZER FLOW-QD 2024-03-13 00:54:05321 mL/minFBLOOD OEJT-IQX9542-87-12 00:54:95284STWQYRF - POST DAY 00:54:0898.9 kgFDialyzer GID8321-12-15 00:54:648885 CalcFTBW (Matthew)2024-03-13 00:54:0850.14 LitersFVT (KT/V TX VOL)2024-03-13 00:54:0852.1 LFAMPUTATE UFHYWN4030-15-67 00:54:080FKT/V YMVLNZNIOQ6041-95-72 00:54:081.63F WEIGHT - PRE DAY 00:54:53820 kgFPATIENT PTA9298-49-21 00:54:0846 YearsFURR%2024-03-13 00:54:0869 %FPATIENT XBB8914-00-42 00:54:0846 YearsFBSA HHOVDE3767-51-09 00:54:082.14 sq mFVM (KT/V MEAN VOL)2024-03-13 00:54:0849.4F HEIGHT IN QMQYSC7542-34-73 00:54:0869 InchesFAMPUTATE BLNSFD2250-45-99 00:54:080 FKT/V KSEDECBTRM6410-39-99 00:54:081.63FStd Renal KT/V0289-07-38 00:54:08N/AF stdKT/V Fxtrc7500-13-20 00:54:08N/AFTOTAL HOURS/WEEK XTLMATCM1701-06-03 00:54:08 10 hrsFPRESCRIBED DAYS/MFMV8123-58-72 00:54:083 Day/WkFVT (KT/V TX VOL) 2024-03-13 00:54:0852.1 LFTotal Kt/Z0085-11-68 00:54:081.29FTBW (Matthew) 2024-03-13 00:54:0850.14 LitersFspKt/X5848-03-58 00:54:081.29FstdKt/V (DIAL) 2024-03-13 00:54:08N/AFBLOOD VYMW-CXS6230-47-12 00:54:21076QFYGHCWI KRU 2024-03-13 00:54:08FDIALYZER WELF-RW0942-55-12 00:54:11987 mL/minFWEIGHT - POST DAY 00:54:0898.9 kgFDialyzer CUT5041-18-32 00:54:024834 CalcFWEIGHT - PRE DAY 00:54:43998 kgFLENGTH OF KFGFJZDL4723-49-20 00:54:26409 minFWEIGHT (KG)2024-03-13 00:54:0899 paOoSVN5848-13-02 00:54:080.74 G/KG/DFeKt/V 2024-03-13 00:54:081.12FResidual kt/n9410-38-31 00:54:08FStd Renal KT/V 2024-03-13 00:54:08N/AFCURRENT GCU3174-37-77 00:54:13UlOFN2505-50-59 00:54:08 0.74 G/KG/DFstdKT/V Rihta6049-20-44 00:54:08N/AFPRESCRIBED DAYS/PMMD4056-02-36 00:54:083 Day/WkFBSA RVBRAY0052-10-41 00:54:082.14 sq mFHEIGHT IN INCHES 2024-03-13 00:54:0869 InchesFTBW (Matthew)2024-03-13 00:54:0850.14 LitersFWEIGHT (KG)2024-03-13 00:54:0899 kgFBLOOD ECAO-DLI4491-15-12 00:54:90284TNqttyvgl kt/v 2024-03-13 00:54:08FVM (KT/V MEAN VOL)2024-03-13 00:54:0849.4FWEIGHT - POST DAY 00:54:0898.9 kgFLENGTH OF QCMEODFY7363-58-91 00:54:46152 minF DIALYZER QDBN-YS9912-95-12 00:54:97144 mL/minFDialyzer BJQ9797-59-13 00:54:08 1264 CalcFTotal Kt/C9663-22-14 00:54:081.29FVT (KT/V TX VOL)2024-03-13 00:54:08 52.1 LFTOTAL HOURS/WEEK ABSEERNO4960-42-21 00:54:0810 hrsFKT/V PRESCRIBED 2024-03-13 00:54:081.63FURR%2024-03-13 00:54:0869 %FspKt/Z6077-12-74 00:54:08 1.29FstdKt/V (DIAL)2024-03-13 00:54:08N/AFAMPUTATE TVKCFX4609-61-59 00:54:080F eKt/B7489-58-30 00:54:081.12FPATIENT BPV1889-80-58 00:54:0846 YearsFWEIGHT - PRE DAY 00:54:16706 kgFUrea nitrogen [Mass/volume] in Serum or Plasma --post ddoxsbmf7911-77-13 00:52:2515 mg/dLF9.0-23.0Urea nitrogen [Mass/volume] in Serum or Plasma --post icjzyicq5645-27-87 00:52:2515 mg/dLF9.0-23.0Urea nitrogen [Mass/volume] in Serum or Plasma --post yonhmmqw9974-61-28 00:52:2515 mg/dLF9.0-23.0Creatinine [Mass/volume] in Serum or Pcecgv4246-21-70 00:20:189.2 mg/dLF0.7-1.3Urea nitrogen [Mass/volume] in Serum or Ropzli0487-84-44 00:20:1848 mg/dLF9.0-23.0Urea nitrogen [Mass/volume] in Serum or Wfppdg7586-01-33 00:20:18 48 mg/dLF9.0-23.0Creatinine [Mass/volume] in Serum or Opvtai1844-18-52 00:20:18 9.2 mg/dLF0.7-1.3Creatinine [Mass/volume] in Serum or Losgjh1335-28-04 00:20:18 9.2 mg/dLF0.7-1.3Urea nitrogen [Mass/volume] in Serum or Ngsfxr4273-52-87 00:20:1848 mg/dLF9.0-23.0TOTAL HOURS/WEEK DYXFLSQX3396-00-66 02:24:5110 hrsF Total Kt/F0442-44-65 02:24:511.24FBLOOD RVFD-VDJ6275-55-14 02:24:24911UVPJHDU OF ADAOLGHL2561-17-86 02:24:11142 minFDialyzer MIX4997-67-13 02:24:111170 CalcF WEIGHT (KG)2024-02-14 02:24:5199 kgFCURRENT JBT1043-48-88 02:24:51FVM (KT/V MEAN VOL)2024-02-14 02:24:5148.5FPRESCRIBED DAYS/RBGH3942-01-21 02:24:513 Day/WkF HEIGHT IN BIVBWD8729-67-16 02:24:5169 InchesFDIALYZER ZOQF-SU8102-87-14 02:24:51 500 mL/minFspKt/X6985-98-84 02:24:511.24FstdKt/V (DIAL)2024-02-14 02:24:51N/AF TBW (Matthew)2024-02-14 02:24:5150.24 LitersFWEIGHT - POST DAY 02:24:5199.2 kgFeKt/A5660-43-08 02:24:511.08FResidual kt/z3830-15-13 02:24:51F WEIGHT - PRE DAY 02:24:79525.5 kgFURR%2024-02-14 02:24:5167 %FKT/V ZPIEENKOIU1344-56-42 02:24:511.64FBSA CMABUC8438-79-43 02:24:512.14 sq mFPATIENT QFV4682-36-83 02:24:5146 YearsFVT (KT/V TX VOL)2024-02-14 02:24:5154.3 LF AMPUTATE FVIZDU8238-58-51 02:24:510FstdKT/V Tfgcn1257-80-41 02:24:51N/AFStd Renal KT/Y9080-96-31 02:24:51N/KZlOPS4024-93-23 02:24:510.88 G/KG/DFWEIGHT (KG) 2024-02-14 02:24:5199 kgFTotal Kt/Z8346-83-84 02:24:511.24FTBW (Matthew) 2024-02-14 02:24:5150.24 LitersFLENGTH OF ITAALXTL1344-54-99 02:24:73363 minF PRESCRIBED DAYS/YAIZ1241-79-90 02:24:513 Day/WkFstdKt/V (DIAL)2024-02-14 02:24:51N/AFWEIGHT - PRE DAY 02:24:30658.5 kgFWEIGHT - POST DAY 1 2024-02-14 02:24:5199.2 kgFURR%2024-02-14 02:24:5167 %FspKt/P2427-51-58 02:24:51 1.92PmGUK6327-21-08 02:24:510.88 G/KG/DFVT (KT/V TX VOL)2024-02-14 02:24:5154.3 LFKT/V NSXOBIJVYH5728-80-08 02:24:511.64FPATIENT SEE0275-70-92 02:24:5146 YearsF BLOOD BQZG-PVN1631-02-14 02:24:23503PIuemmzjb LDH7647-91-35 02:24:115555 CalcF CURRENT AZM4223-82-00 02:24:51FTOTAL HOURS/WEEK RYLPWAMZ8699-70-28 02:24:5110 hrsFVM (KT/V MEAN VOL)2024-02-14 02:24:5148.5FDIALYZER BJRD-XP2501-84-14 02:24:81895 mL/minFResidual kt/c8950-50-84 02:24:51FHEIGHT IN DKIPHE9998-47-56 02:24:5169 InchesFstdKT/V Bydtu1742-98-19 02:24:51N/AFeKt/Y5960-06-12 02:24:51 1.08FStd Renal KT/J1036-05-69 02:24:51N/AFBSA NCDPDU3916-56-30 02:24:512.14 sq m FAMPUTATE TQKLAV7577-32-67 02:24:510FWEIGHT (KG)2024-02-14 02:24:5199 kgFTotal Kt/P2062-83-11 02:24:511.24FDialyzer ALA8569-35-45 02:24:537338 CalcFTOTAL HOURS/WEEK NNISHEQA1369-75-33 02:24:5110 hrsFLENGTH OF XFLPMSBB0900-94-91 02:24:27960 minFCURRENT OZZ7201-93-91 02:24:51FBLOOD QENP-ZQQ8542-98-14 02:24:51 443FeKt/Y1760-97-42 02:24:511.08FPRESCRIBED DAYS/EFGW9341-06-78 02:24:513 Day/Wk FTBW (Matthew)2024-02-14 02:24:5150.24 LitersFstdKt/V (DIAL)2024-02-14 02:24:51 N/AFVM (KT/V MEAN VOL)2024-02-14 02:24:5148.5FspKt/U4298-21-17 02:24:511.24F WEIGHT - POST DAY 02:24:5199.2 kgFURR%2024-02-14 02:24:5167 %FHEIGHT IN KZAXRM6263-81-84 02:24:5169 InchesFWEIGHT - PRE DAY 02:24:51 100.5 kgFDIALYZER VJUF-JH7717-28-14 02:24:80392 mL/minFResidual kt/e2142-63-14 02:24:51FPATIENT NQF9116-18-71 02:24:5146 YearsFStd Renal KT/T9712-74-92 02:24:51N/AFAMPUTATE RYTZJK4349-48-78 02:24:510FBSA APVXZR9432-92-23 02:24:51 2.14 sq mFstdKT/V Hgwvb2136-39-94 02:24:51N/AFVT (KT/V TX VOL)2024-02-14 02:24:5154.3 LFKT/V IZDGHTVNVO8572-25-23 02:24:511.42RcDBM1235-60-12 02:24:51 0.88 G/KG/DFUrea nitrogen [Mass/volume] in Serum or Plasma --post dialysis 2024-02-14 02:23:1720 mg/dLF9.0-23.0Urea nitrogen [Mass/volume] in Serum or Plasma --post drnpadda2906-43-38 02:23:1720 mg/dLF9.0-23.0Urea nitrogen [Mass/volume] in Serum or Plasma --post qpormfmy9230-76-28 02:23:1720 mg/dLF 9.0-23.0Creatinine [Mass/volume] in Serum or Bxhrcp0832-58-38 23:58:209.58 mg/dL F0.7-1.3Urea nitrogen [Mass/volume] in Serum or Bwkuwd6370-71-13 23:58:2061 mg/dLF9.0-23.0Creatinine [Mass/volume] in Serum or Qwrjps7369-74-20 23:58:209.58 mg/dLF0.7-1.3Urea nitrogen [Mass/volume] in Serum or Jdxhks5941-23-46 23:58:20 61 mg/dLF9.0-23.0Creatinine [Mass/volume] in Serum or Sovoij8605-75-24 23:58:20 9.58 mg/dLF0.7-1.3Urea nitrogen [Mass/volume] in Serum or Oinnds6256-33-84 23:58:2061 mg/dLF9.0-23.0stdKT/V Lvpbf6312-09-20 04:57:31N/AFspKt/S4472-35-16 04:57:311.41FBLOOD NQNN-QMT3628-96-18 04:57:31942IDJCEFHY BCV1742-98-23 04:57:31 FstdKt/V (DIAL)2024-01-18 04:57:31N/AFTotal Kt/B2839-19-87 04:57:311.41FstdKt/V (DIAL)2024-01-18 04:57:31N/AFTotal Kt/R8784-82-07 04:57:311.41FstdKT/V Total 2024-01-18 04:57:31N/AFBLOOD IKKW-KXD0143-59-18 04:57:84572NlqLn/R0168-46-05 04:57:311.41FCURRENT DVL5366-90-07 04:57:31FstdKT/V Jdxfw9408-99-90 04:57:31N/AF stdKt/V (DIAL)2024-01-18 04:57:31N/AFTotal Kt/W0674-99-94 04:57:311.41FspKt/V 2024-01-18 04:57:311.41FCURRENT WGX6799-21-87 04:57:31FBLOOD AKFD-HQC1188-78-18 04:57:43663RaoLm/N3135-97-43 04:57:311.41FTotal Kt/L3257-69-27 04:57:311.41F BLOOD ROSR-NYE7614-78-18 04:57:96031WdzpAu/V (DIAL)2024-01-18 04:57:31N/AF stdKT/V Lfvro8211-04-84 04:57:31N/AFCURRENT GJW6291-22-92 04:57:31FVT (KT/V TX VOL)2024-01-18 04:57:3047.4 LFeKt/B4396-97-82 04:57:301.21FVM (KT/V MEAN VOL) 2024-01-18 04:57:3046.6FKT/V LGNWNAIUHQ7034-80-75 04:57:301.6FResidual kt/v 2024-01-18 04:57:30FTBW (Matthew)2024-01-18 04:57:3050.24 OusaldHwTKD5020-38-48 04:57:300.78 G/KG/DFDIALYZER MJKI-FN5223-60-18 04:57:31889 mL/minFWEIGHT - POST DAY 04:57:3099.2 kgFLENGTH OF GWJWAOCQ0021-71-81 04:57:83074 minF AMPUTATE XOTMSV3392-07-51 04:57:300FDialyzer ZMR8066-20-25 04:57:264379 CalcF WEIGHT - PRE DAY 04:57:69124.8 kgFWEIGHT (KG)2024-01-18 04:57:3099 kgFPATIENT PFB3556-17-38 04:57:3046 YearsFHEIGHT IN HIHIEY1252-49-56 04:57:3069 InchesFTOTAL HOURS/WEEK ZFZGYTVJ0951-37-65 04:57:307 hrsFStd Renal KT/V 2024-01-18 04:57:30N/AFURR%2024-01-18 04:57:3071 %FBSA OXFMRJ8691-88-46 04:57:30 2.14 sq mFPRESCRIBED DAYS/DAKN6576-15-57 04:57:303 Day/WkFVT (KT/V TX VOL) 2024-01-18 04:57:3047.4 LFeKt/Q0882-28-54 04:57:301.21FVM (KT/V MEAN VOL) 2024-01-18 04:57:3046.6FDIALYZER XAFL-WF7255-64-18 04:57:10705 mL/minFAMPUTATE PUOEEZ8832-70-19 04:57:300FLENGTH OF KVNRLPOK9689-40-07 04:57:31491 minFWEIGHT - POST DAY 04:57:3099.2 apExISO2321-73-01 04:57:300.78 G/KG/DFWEIGHT - PRE DAY 04:57:88295.8 kgFBSA LJNKKF4679-25-71 04:57:302.14 sq mF PRESCRIBED DAYS/MLHZ3470-96-53 04:57:303 Day/WkFDialyzer INU0950-02-08 04:57:30 1264 CalcFWEIGHT (KG)2024-01-18 04:57:3099 kgFPATIENT QKV2465-57-96 04:57:3046 YearsFKT/V KBUOOAJHRT2146-57-25 04:57:301.6FTBW (Matthew)2024-01-18 04:57:3050.24 LitersFResidual kt/a4237-97-24 04:57:30FHEIGHT IN QJSTJQ2523-45-02 04:57:3069 InchesFStd Renal KT/M1229-83-59 04:57:30N/AFURR%2024-01-18 04:57:3071 %FTOTAL HOURS/WEEK XWVDDUEG6248-33-57 04:57:307 hrsFKT/V UIFYMQSJCD1752-19-80 04:57:30 1.6FVT (KT/V TX VOL)2024-01-18 04:57:3047.4 LFVM (KT/V MEAN VOL)2024-01-18 04:57:3046.6FeKt/L9885-95-46 04:57:301.21FWEIGHT - POST DAY 04:57:30 99.2 kgFLENGTH OF RERYRAKU3700-30-13 04:57:14065 minFDIALYZER SOTU-NO7096-25-18 04:57:36657 mL/minFAMPUTATE EDFWJC7392-84-93 04:57:252VvEOX0977-82-04 04:57:30 0.78 G/KG/DFTBW (Matthew)2024-01-18 04:57:3050.24 LitersFTOTAL HOURS/WEEK SFKJIWRS9401-91-66 04:57:307 hrsFBSA VPHBEB0176-30-67 04:57:302.14 sq mFPATIENT NAB1596-91-05 04:57:3046 YearsFDialyzer VWI8603-32-06 04:57:241649 CalcFWEIGHT (KG)2024-01-18 04:57:3099 kgFURR%2024-01-18 04:57:3071 %FHEIGHT IN INCHES 2024-01-18 04:57:3069 InchesFStd Renal KT/A6860-94-42 04:57:30N/AFWEIGHT - PRE DAY 04:57:90517.8 kgFDIALYZER NLBA-XK8583-41-18 04:57:97161 mL/minF Dialyzer QZE5439-25-17 04:57:390764 CalcFVM (KT/V MEAN VOL)2024-01-18 04:57:30 46.6JlCEP1556-55-23 04:57:300.78 G/KG/DFTBW (Matthew)2024-01-18 04:57:3050.24 LitersFeKt/T4936-81-87 04:57:301.21FPATIENT JOI1925-04-26 04:57:3046 YearsFURR% 2024-01-18 04:57:3071 %FBSA YXJOLE4701-95-99 04:57:302.14 sq mFWEIGHT - PRE DAY 04:57:57513.8 kgFHEIGHT IN MQRFJZ3310-38-81 04:57:3069 InchesF PRESCRIBED DAYS/XVCM5053-70-65 04:57:303 Day/WkFAMPUTATE XLPMQF9889-28-26 04:57:300FLENGTH OF OHHRTZLT5259-84-40 04:57:00634 minFWEIGHT - POST DAY 1 2024-01-18 04:57:3099.2 kgFWEIGHT (KG)2024-01-18 04:57:3099 kgFVT (KT/V TX VOL) 2024-01-18 04:57:3047.4 LFResidual kt/l5239-53-64 04:57:30FKT/V PRESCRIBED 2024-01-18 04:57:301.6FStd Renal KT/T1238-42-99 04:57:30N/AFTOTAL HOURS/WEEK ZUURSPYO9643-92-51 04:57:307 hrsFResidual kt/f4893-63-81 04:57:30FPRESCRIBED DAYS/VNSL5219-00-05 04:57:303 Day/WkFCreatinine [Mass/volume] in Serum or Plasma 2024-01-18 04:55:3210.16 mg/dLF0.7-1.3Urea nitrogen [Mass/volume] in Serum or Fineaz0178-55-64 04:55:3278 mg/dLF9.0-23.0Urea nitrogen [Mass/volume] in Serum or Kyrrhg9862-14-29 04:55:3278 mg/dLF9.0-23.0Creatinine [Mass/volume] in Serum or Zoyxht4327-72-79 04:55:3210.16 mg/dLF0.7-1.3Creatinine [Mass/volume] in Serum or Abmxcl8984-57-53 04:55:3210.16 mg/dLF0.7-1.3Urea nitrogen [Mass/volume] in Serum or Buxfnj1179-05-18 04:55:3278 mg/dLF9.0-23.0Creatinine [Mass/volume] in Serum or Ugkvwh3961-82-43 04:55:3210.16 mg/dLF0.7-1.3Urea nitrogen [Mass/volume] in Serum or Jprsea5306-63-25 04:55:3278 mg/dLF9.0-23.0Urea nitrogen [Mass/volume] in Serum or Plasma --post lwrcthtd1367-46-54 22:42:1723 mg/dLF 9.0-23.0Urea nitrogen [Mass/volume] in Serum or Plasma --post lddyadsb3082-00-82 22:42:1723 mg/dLF9.0-23.0Urea nitrogen [Mass/volume] in Serum or Plasma --post bxaxxzjl6245-96-83 22:42:1723 mg/dLF9.0-23.0Urea nitrogen [Mass/volume] in Serum or Plasma --post tdnleftb7295-20-24 22:42:1723 mg/dLF9.0-23.0HEIGHT IN INCHES 2023-12-12 23:08:5169 InchesFDIALYZER PDNH-NP9682-66-11 23:08:57508 mL/minF PRESCRIBED DAYS/AYGH9391-96-16 23:08:513 Day/WkFVT (KT/V TX VOL)2023-12-12 23:08:51FUnable to calculate: Post BUN lab result is unknownKT/V PRESCRIBED 2023-12-12 23:08:51FUnable to calculate: Post BUN lab result is unknowneKt/V 2023-12-12 23:08:51FUnable to calculate: Post BUN lab result is unknownStd Renal KT/Y3390-66-35 23:08:51FUnable to calculate: Post BUN lab result is unknown Dialyzer HER5586-60-04 23:08:686173 CalcFWEIGHT - POST DAY 23:08:51 99.4 kgFWEIGHT (KG)2023-12-12 23:08:5199 kgFResidual kt/o1653-05-66 23:08:51F Unable to calculate: Post BUN lab result is hkmtazkwZJE2489-15-12 23:08:51F Unable to calculate: Post BUN lab result is unknownAMPUTATE CDMOYS3191-61-17 23:08:510FspKt/E6480-94-27 23:08:51FUnable to calculate: Post BUN lab result is unknownstdKt/V (DIAL)2023-12-12 23:08:51FUnable to calculate: Post BUN lab result is unknownTOTAL HOURS/WEEK ZNPBHSFA3627-21-81 23:08:5111 hrsFURR% 2023-12-12 23:08:51FUnable to calculate: Post BUN lab result is unknownLENGTH OF KCXKDSXD3332-06-26 23:08:48965 minFPATIENT EVC3569-46-14 23:08:5146 YearsFBSA MHTBDL0567-01-27 23:08:51FUnable to calculate: Post BUN lab result is unknown WEIGHT - PRE DAY 23:08:35449 kgFVM (KT/V MEAN VOL)2023-12-12 23:08:51FUnable to calculate: Post BUN lab result is unknownTBW (Matthew) 2023-12-12 23:08:51FUnable to calculate: Post BUN lab result is unknownstdKT/V Ovqmu3138-08-74 23:08:51FUnable to calculate: Post BUN lab result is unknown BLOOD YVQE-VAV4811-03-11 23:08:97872OOjvlm Kt/F2984-69-45 23:08:51FUnable to calculate: Post BUN lab result is unknownCURRENT VSW8352-10-65 23:08:51FUnable to calculate: Post BUN lab result is unknownPATIENT KVZ4909-32-20 23:08:5146 YearsFBLOOD QTMN-AOY4126-14-11 23:08:49429OAgoadgfi kt/d8352-92-36 23:08:51F Unable to calculate: Post BUN lab result is unknownspKt/M8829-57-81 23:08:51F Unable to calculate: Post BUN lab result is gocizfjkRPW2404-25-25 23:08:51F Unable to calculate: Post BUN lab result is unknownTotal Kt/L8152-82-48 23:08:51 FUnable to calculate: Post BUN lab result is unknownKT/V IJVHFDZCDR7299-73-95 23:08:51FUnable to calculate: Post BUN lab result is unknownWEIGHT - PRE DAY 1 2023-12-12 23:08:75198 kgFLENGTH OF ANLBKMYS1563-99-99 23:08:03761 minFeKt/V 2023-12-12 23:08:51FUnable to calculate: Post BUN lab result is unknownstdKT/V Zbrgc3366-42-81 23:08:51FUnable to calculate: Post BUN lab result is unknown Dialyzer BQF2333-98-19 23:08:885297 CalcFPRESCRIBED DAYS/WFBK4722-59-85 23:08:51 3 Day/WkFVT (KT/V TX VOL)2023-12-12 23:08:51FUnable to calculate: Post BUN lab result is unknownHEIGHT IN HJKXRM4096-48-37 23:08:5169 InchesFTOTAL HOURS/WEEK HFFRHNDU6432-87-16 23:08:5111 hrsFCURRENT MRR2709-32-54 23:08:51FUnable to calculate: Post BUN lab result is unknownVM (KT/V MEAN VOL)2023-12-12 23:08:51F Unable to calculate: Post BUN lab result is unknownWEIGHT - POST DAY 23:08:5199.4 kgFstdKt/V (DIAL)2023-12-12 23:08:51FUnable to calculate: Post BUN lab result is unknownURR%2023-12-12 23:08:51FUnable to calculate: Post BUN lab result is unknownTBW (Matthew)2023-12-12 23:08:51FUnable to calculate: Post BUN lab result is unknownAMPUTATE PVWPFF1226-47-20 23:08:510FDIALYZER FLOW-QD 2023-12-12 23:08:66183 mL/minFStd Renal KT/T8161-71-06 23:08:51FUnable to calculate: Post BUN lab result is unknownWEIGHT (KG)2023-12-12 23:08:5199 kgFBSA SLYPOE7702-90-39 23:08:51FUnable to calculate: Post BUN lab result is unknown Creatinine [Mass/volume] in Serum or Mnzzkd1663-62-49 23:07:129.59 mg/dLF0.7-1.3 Urea nitrogen [Mass/volume] in Serum or Twteir4504-55-07 23:07:1251 mg/dLF 9.0-23.0Creatinine [Mass/volume] in Serum or Zyzzxy2027-21-50 23:07:129.59 mg/dL F0.7-1.3Urea nitrogen [Mass/volume] in Serum or Qqulhy0776-45-65 23:07:1251 mg/dLF9.0-23.0Urea nitrogen [Mass/volume] in Serum or Plasma --post dialysis 2023-12-12 17:47:55FRecollect - Unspun specimenUrea nitrogen [Mass/volume] in Serum or Plasma --post emwzelxj9810-60-28 17:47:55FRecollect - Unspun specimen TOTAL HOURS/WEEK PQOFSSFX4280-03-38 02:08:2211 isuPjDJP3956-85-66 02:08:221.12 G/KG/DFAMPUTATE EAYGYG1974-65-36 02:08:220FBLOOD MUZF-BLQ1153-29-15 02:08:55600C WEIGHT - POST DAY 02:08:2299.1 kgFWEIGHT - PRE DAY 02:08:47842.4 kgFstdKt/V (DIAL)2023-11-15 02:08:22N/AFKT/V CVTKTZLJEO7763-64-16 02:08:221.63FPATIENT XPR2550-39-56 02:08:2246 YearsFHEIGHT IN CVSYDM5175-67-95 02:08:2269 InchesFstdKT/V Fcrji6075-70-06 02:08:22N/AFDIALYZER MHYA-NE7790-59-15 02:08:24725 mL/minFPRESCRIBED DAYS/HAUA9124-95-37 02:08:223 Day/WkFTotal Kt/V 2023-11-15 02:08:221.3FCURRENT XPG4226-78-55 02:08:22FResidual kt/r1314-29-08 02:08:22FURR%2023-11-15 02:08:2268 %FTBW (Matthew)2023-11-15 02:08:2250.21 Liters FBSA IBMBHY4937-01-45 02:08:222.14 sq mFStd Renal KT/C3681-65-57 02:08:22N/AF WEIGHT (KG)2023-11-15 02:08:2299 kgFVT (KT/V TX VOL)2023-11-15 02:08:2250.3 LF spKt/Z6905-99-95 02:08:221.3FVM (KT/V MEAN VOL)2023-11-15 02:08:2246.3FeKt/V 2023-11-15 02:08:221.13FLENGTH OF YKSUZEDA8056-11-21 02:08:61899 minFDialyzer KGC1019-49-04 02:08:454092 CalcFKT/V QJUSJGTTOS2850-57-15 02:08:221.63FAMPUTATE YZBPZY2353-35-23 02:08:220FBLOOD SGYL-ZMQ8638-19-15 02:08:77630YEXWYXU - POST DAY 02:08:2299.1 kgFTotal Kt/D1425-83-62 02:08:221.3FstdKt/V (DIAL) 2023-11-15 02:08:22N/AFTOTAL HOURS/WEEK NOGXKEBS4267-46-59 02:08:2211 hrsFVT (KT/V TX VOL)2023-11-15 02:08:2250.3 LFspKt/S1631-76-44 02:08:221.3FTBW (Matthew) 2023-11-15 02:08:2250.21 LitersFURR%2023-11-15 02:08:2268 %FPRESCRIBED DAYS/WEEK 2023-11-15 02:08:223 Day/WkFDIALYZER RVYJ-UR0172-70-15 02:08:82497 mL/minFWEIGHT - PRE DAY 02:08:59021.4 yvNpAAJ9699-54-90 02:08:221.12 G/KG/DF stdKT/V Bnrah0233-14-61 02:08:22N/AFHEIGHT IN ENZRIK0852-28-87 02:08:2269 Inches FPATIENT ZCE0881-46-07 02:08:2246 YearsFStd Renal KT/R9347-12-78 02:08:22N/AF WEIGHT (KG)2023-11-15 02:08:2299 kgFResidual kt/g7487-63-22 02:08:22FCURRENT KRU 2023-11-15 02:08:22FVM (KT/V MEAN VOL)2023-11-15 02:08:2246.3FeKt/Q4920-85-08 02:08:221.13FLENGTH OF KZPTMBWX9884-89-00 02:08:30545 minFBSA NWFODL5227-63-57 02:08:222.14 sq mFDialyzer KRK3303-32-54 02:08:376091 CalcFUrea nitrogen [Mass/volume] in Serum or Plasma --post gkkbvsux8580-61-95 00:33:4725 mg/dLF 9.0-23.0Urea nitrogen [Mass/volume] in Serum or Plasma --post isyxzcvt2099-25-48 00:33:4725 mg/dLF9.0-23.0Creatinine [Mass/volume] in Serum or Dlommb4446-96-12 15:57:409.4 mg/dLF0.7-1.3Urea nitrogen [Mass/volume] in Serum or Plasma 2023-11-14 15:57:4078 mg/dLF9.0-23.0Creatinine [Mass/volume] in Serum or Plasma 2023-11-14 15:57:409.4 mg/dLF0.7-1.3Urea nitrogen [Mass/volume] in Serum or Yrkykx6824-63-41 15:57:4078 mg/dLF9.0-23.0Residual kt/v8510-44-38 17:24:46F DIALYZER MWWB-FL9187-33-12 17:24:82192 mL/minFHEIGHT IN LWDBVZ9360-97-70 17:24:4669 InchesFKT/V ZIMRDYJNBS2349-22-50 17:24:461.63FeKt/M3794-56-26 17:24:461.26FLENGTH OF EYSFULJF6933-10-95 17:24:29411 minFTBW (Matthew)2023-10-12 17:24:4650.48 LitersFstdKt/V (DIAL)2023-10-12 17:24:46N/AFstdKT/V Total 2023-10-12 17:24:46N/AFURR%2023-10-12 17:24:4674 %FAMPUTATE UCTCVZ1503-77-90 17:24:460FTOTAL HOURS/WEEK AMJQUEGJ7161-77-76 17:24:4611 hrsFBLOOD FLOW-QWB 2023-10-12 17:24:62643PNbggodko UFJ4865-21-68 17:24:705311 CalcFWEIGHT - PRE DAY 17:24:50486 kgFTotal Kt/W3334-75-59 17:24:461.46FspKt/L5372-56-39 17:24:461.46FPATIENT EBB4285-77-86 17:24:4646 YearsFBSA SOIZOS2528-00-28 17:24:462.14 sq mFStd Renal KT/Q2557-51-21 17:24:46N/AFWEIGHT - POST DAY 1 2023-10-12 17:24:4699.9 kgFCURRENT GFD3834-30-46 17:24:46FWEIGHT (KG)2023-10-12 17:24:4699 kgFVT (KT/V TX VOL)2023-10-12 17:24:4646.3 LFVM (KT/V MEAN VOL) 2023-10-12 17:24:1090ZkVQH2886-65-29 17:24:460.72 G/KG/DFPRESCRIBED DAYS/WEEK 2023-10-12 17:24:463 Day/WkFWEIGHT - PRE DAY 17:24:34393 kgFDIALYZER BNCN-XW6860-46-12 17:24:99498 mL/minFPATIENT BNP8208-81-05 17:24:4646 YearsF Dialyzer OSH2652-10-81 17:24:818468 CalcFTOTAL HOURS/WEEK QPQJCRNW3714-75-55 17:24:4611 hrsFBLOOD UENK-JPH6376-87-12 17:24:75035HCvnrt Kt/M1547-38-32 17:24:461.46FspKt/M6497-28-78 17:24:461.46FResidual kt/m1714-95-44 17:24:46F HEIGHT IN SDLQGR0209-72-30 17:24:4669 InchesFKT/V LXMAQNDQDC3487-96-10 17:24:46 1.63FLENGTH OF YIWNDGNL1814-52-23 17:24:38916 minFeKt/M6243-51-31 17:24:461.26F CURRENT NAH1399-41-62 17:24:46FBSA GKTKHQ2911-60-19 17:24:462.14 sq mFWEIGHT (KG)2023-10-12 17:24:4699 kgFVM (KT/V MEAN VOL)2023-10-12 17:24:4645FStd Renal KT/D2915-17-31 17:24:46N/AFWEIGHT - POST DAY 17:24:4699.9 kgF PRESCRIBED DAYS/ZLQB4408-63-70 17:24:463 Day/WkFURR%2023-10-12 17:24:4674 %F AMPUTATE HMDNVT1944-50-49 17:24:460FstdKt/V (DIAL)2023-10-12 17:24:46N/AFTBW (Matthew)2023-10-12 17:24:4650.48 BrxdyjEbSMK0965-11-05 17:24:460.72 G/KG/DFVT (KT/V TX VOL)2023-10-12 17:24:4646.3 LFstdKT/V Lgkjy0346-49-32 17:24:46N/AFUrea nitrogen [Mass/volume] in Serum or Xaskse2610-96-49 17:22:3257 mg/dLF9.0-23.0 Creatinine [Mass/volume] in Serum or Yzloqw4167-25-08 17:22:3210.55 mg/dLF 0.7-1.3Creatinine [Mass/volume] in Serum or Pqopfp0022-95-22 17:22:3210.55 mg/dL F0.7-1.3Urea nitrogen [Mass/volume] in Serum or Otnkjs5298-74-68 17:22:3257 mg/dLF9.0-23.0Urea nitrogen [Mass/volume] in Serum or Plasma --post dialysis 2023-10-12 04:01:4015 mg/dLF9.0-23.0Urea nitrogen [Mass/volume] in Serum or Plasma --post wcailyov7301-57-25 04:01:4015 mg/dLF9.0-23.0AMPUTATE FACTOR 2023-09-13 04:35:090FPRESCRIBED DAYS/DFOL5732-07-83 04:35:093 Day/WkFResidual kt/c9321-88-88 04:35:09FspKt/O1307-21-67 04:35:091.2FVM (KT/V MEAN VOL) 2023-09-13 04:35:0944.6FBLOOD MRBR-NUP2648-46-13 04:35:12877FJNOPHF (KG) 2023-09-13 04:35:0999 kgFBSA TOCDZT0061-86-96 04:35:092.14 sq aQhVQQ4759-52-53 04:35:090.88 G/KG/DFWEIGHT - PRE DAY 04:35:54538.2 kgFTOTAL HOURS/WEEK FTSAYBMR0935-55-87 04:35:0911 hrsFKT/V WXFRHTMGDM6919-93-53 04:35:09 1.64FstdKt/V (DIAL)2023-09-13 04:35:09N/AFTotal Kt/X9657-36-57 04:35:091.2FStd Renal KT/V4238-25-68 04:35:09N/AFTBW (Matthew)2023-09-13 04:35:0950.38 LitersF PATIENT CDF2830-35-78 04:35:0946 YearsFDialyzer VIR6575-64-01 04:35:687744 CalcF VT (KT/V TX VOL)2023-09-13 04:35:0956.8 LFURR%2023-09-13 04:35:0966 %FLENGTH OF DKYGRWDC6715-58-59 04:35:94662 minFWEIGHT - POST DAY 04:35:0999.6 kg FHEIGHT IN ZZZWRO1671-85-43 04:35:0969 InchesFDIALYZER CMGO-BD4619-88-13 04:35:65520 mL/minFstdKT/V Uzado8898-53-45 04:35:09N/AFeKt/V6999-82-92 04:35:09 1.04FCURRENT FFU2683-04-80 04:35:09FVM (KT/V MEAN VOL)2023-09-13 04:35:0944.6F AMPUTATE XIWAZD8912-14-42 04:35:090FPRESCRIBED DAYS/JWTY3478-88-23 04:35:093 Day/WkFspKt/Q5839-89-72 04:35:091.2FWEIGHT - PRE DAY 04:35:24133.2 kgFDialyzer JGB9224-84-80 04:35:123184 CalcFstdKt/V (DIAL)2023-09-13 04:35:09N/A ZkPRA8972-37-45 04:35:090.88 G/KG/DFPATIENT JTT1125-38-90 04:35:0946 YearsFTotal Kt/J6458-62-59 04:35:091.2FBSA VIWSNG9140-84-52 04:35:092.14 sq mFBLOOD PHDF-HUY4524-87-13 04:35:81607OWte Renal KT/R3574-16-10 04:35:09N/AFResidual kt/m0950-46-39 04:35:09FKT/V IJTGEFEZTE8019-58-37 04:35:091.64FTOTAL HOURS/WEEK CHIWZMMK1548-85-65 04:35:0911 hrsFHEIGHT IN ZRYDIL8616-33-09 04:35:0969 InchesF DIALYZER MNPG-VI3132-70-13 04:35:06008 mL/minFWEIGHT (KG)2023-09-13 04:35:0999 kgFstdKT/V Lyvbo5170-19-31 04:35:09N/AFCURRENT ZFB6730-59-96 04:35:09FTBW (Matthew)2023-09-13 04:35:0950.38 LitersFVT (KT/V TX VOL)2023-09-13 04:35:0956.8 LFURR%2023-09-13 04:35:0966 %FeKt/Q3261-75-48 04:35:091.04FLENGTH OF DIALYSIS 2023-09-13 04:35:62161 minFWEIGHT - POST DAY 04:35:0999.6 kgFUrea nitrogen [Mass/volume] in Serum or Plasma --post ubchpqna8146-04-12 04:33:3821 mg/dLF9.0-23.0Urea nitrogen [Mass/volume] in Serum or Plasma --post dialysis 2023-09-13 04:33:3821 mg/dLF9.0-23.0Creatinine [Mass/volume] in Serum or Plasma 2023-09-13 00:37:388.99 mg/dLF0.7-1.3Urea nitrogen [Mass/volume] in Serum or Ulitto7929-36-67 00:37:3861 mg/dLF9.0-23.0Creatinine [Mass/volume] in Serum or Yquldb4126-84-78 00:37:388.99 mg/dLF0.7-1.3Urea nitrogen [Mass/volume] in Serum or Stpkfb1803-06-35 00:37:3861 mg/dLF9.0-23.0Creatinine [Mass/volume] in Serum or Aqbsxk6545-94-91 16:33:338.23 mg/dLF0.7-1.3spKt/N0897-66-10 13:37:301.46F BLOOD PGFG-CTX3184-36-11 13:37:89314SYUK%2023-07-12 13:37:3071 %FLENGTH OF QBISXEJJ1687-42-68 13:37:47167 minFPATIENT VAQ0339-26-08 13:37:3045 YearsFKT/V OCAKTNPLTT7698-92-01 13:37:301.68FResidual kt/a0371-54-01 13:37:30FnPCR 2023-07-12 13:37:300.89 G/KG/DFAMPUTATE MJCBQT2581-24-81 13:37:300FPRESCRIBED DAYS/RFJJ0785-93-25 13:37:303 Day/WkFDialyzer ANR8001-87-22 13:37:204543 CalcF Total Kt/Z4522-66-89 13:37:301.46FstdKt/V (DIAL)2023-07-12 13:37:30N/AFeKt/V 2023-07-12 13:37:301.27FTOTAL HOURS/WEEK UDOCUUID8760-15-45 13:37:3011 hrsF HEIGHT IN ZUBISY5204-92-35 13:37:3069 InchesFStd Renal KT/M5070-86-80 13:37:30 N/AFBSA RYYNYX6313-68-58 13:37:302.12 sq mFWEIGHT - PRE DAY 13:37:30 101.4 kgFWEIGHT - POST DAY 13:37:3098.5 kgFCURRENT WQS0405-19-02 13:37:30FVM (KT/V MEAN VOL)2023-07-12 13:37:3044FWEIGHT (KG)2023-07-12 13:37:30 96 kgFDIALYZER XYEO-SD7267-89-11 13:37:03817 mL/minFstdKT/V Urbhb1267-90-30 13:37:30N/AFVT (KT/V TX VOL)2023-07-12 13:37:3045 LFTBW (Matthew)2023-07-12 13:37:3050.1 LitersFspKt/K6643-37-62 13:37:301.46FURR%2023-07-12 13:37:3071 %F BLOOD YIDZ-JOI1697-11-11 13:37:21604GZtpkd Kt/V9706-53-51 13:37:301.46FstdKt/V (DIAL)2023-07-12 13:37:30N/AFBSA TJFNTK6085-19-54 13:37:302.12 sq mFHEIGHT IN OJLOCD9919-98-33 13:37:3069 InchesFCURRENT ABK8479-60-39 13:37:30FeKt/V 2023-07-12 13:37:301.27FPATIENT WCP9386-59-00 13:37:3045 YearsFStd Renal KT/V 2023-07-12 13:37:30N/AFWEIGHT (KG)2023-07-12 13:37:3096 kgFVM (KT/V MEAN VOL) 2023-07-12 13:37:3044FKT/V VAJLFVFRHQ7210-64-72 13:37:301.68FWEIGHT - PRE DAY 1 2023-07-12 13:37:30821.4 kgFLENGTH OF PIIVWLDF7298-38-27 13:37:45326 minFTOTAL HOURS/WEEK BXOCSSNC4237-78-72 13:37:3011 hrsFWEIGHT - POST DAY 13:37:3098.5 kgFDIALYZER ANFU-DO3451-62-11 13:37:01571 mL/minFAMPUTATE FACTOR 2023-07-12 13:37:616CrKSH2773-57-82 13:37:300.89 G/KG/DFResidual kt/g6987-55-81 13:37:30FstdKT/V Rluxm8173-52-96 13:37:30N/AFVT (KT/V TX VOL)2023-07-12 13:37:30 45 LFTBW (Matthew)2023-07-12 13:37:3050.[address]5093-73-38 13:37:30 1264 CalcFPRESCRIBED DAYS/YOAU0421-12-42 13:37:303 Day/WkFUrea nitrogen [Mass/volume] in Serum or Plasma --post wduyswmk3036-17-51 13:36:0916 mg/dLF 9.0-23.0Urea nitrogen [Mass/volume] in Serum or Plasma --post biqipbbr4768-88-24 13:36:0916 mg/dLF9.0-23.0Creatinine [Mass/volume] in Serum or Rbnjmg8697-02-86 01:57:337.11 mg/dLF0.7-1.3Urea nitrogen [Mass/volume] in Serum or Plasma 2023-07-12 01:57:3356 mg/dLF9.0-23.0Creatinine [Mass/volume] in Serum or Plasma 2023-07-12 01:57:337.11 mg/dLF0.7-1.3Urea nitrogen [Mass/volume] in Serum or Sosptn1590-20-56 01:57:3356 mg/dLF9.0-23.0BSA POGFZC4155-37-63 20:04:252.12 sq m FKT/V MEGQGIHGDW9564-05-30 20:04:251.52FDIALYZER EXGP-IE6094-13-27 20:04:50956 mL/minFTotal Kt/B5043-83-26 20:04:251.57FWEIGHT - PRE DAY 20:04:25 99.1 kgFPRESCRIBED DAYS/LYEM1061-12-51 20:04:253 Day/WkFstdKt/V (DIAL)2023-06-27 20:04:25N/AFHEIGHT IN DQKSCP8556-32-76 20:04:2569 InchesFPATIENT LGR2918-22-80 20:04:2545 YearsFURR%2023-06-27 20:04:2574 %FLENGTH OF PNEWBUMM9617-03-30 20:04:98279 minFVT (KT/V TX VOL)2023-06-27 20:04:2539.5 ACcUVC6247-85-89 20:04:250.94 G/KG/DFstdKT/V Ekago3740-93-97 20:04:25N/AFCURRENT SYN4587-77-45 20:04:25FVM (KT/V MEAN VOL)2023-06-27 20:04:2543.7FspKt/U4261-50-43 20:04:251.57 FAMPUTATE EHCTYY4871-74-95 20:04:250FTBW (Matthew)2023-06-27 20:04:2549.3 LitersF WEIGHT - POST DAY 20:04:2596.1 kgFResidual kt/j9797-62-81 20:04:25F eKt/X1792-74-40 20:04:251.34FWEIGHT (KG)2023-06-27 20:04:2596 kgFDialyzer RANDELL 2023-06-27 20:04:594626 CalcFBLOOD ZRGA-WJM7465-45-27 20:04:07342QQjs Renal KT/V 2023-06-27 20:04:25N/AFTOTAL HOURS/WEEK BPBUNPLS9616-79-34 20:04:2511 hrsFWEIGHT - PRE DAY 20:04:2599.1 kgFBSA GWGOSO7640-03-36 20:04:252.12 sq mF Total Kt/K5101-25-76 20:04:251.57FWEIGHT - POST DAY 20:04:2596.1 kgF stdKt/V (DIAL)2023-06-27 20:04:25N/AYgTGD4973-29-53 20:04:250.94 G/KG/DFAMPUTATE QWORXN0489-09-13 20:04:250FStd Renal KT/Q8719-53-79 20:04:25N/AFWEIGHT (KG) 2023-06-27 20:04:2596 kgFTBW (Matthew)2023-06-27 20:04:2549.3 LitersFDIALYZER AYIT-CT0494-37-27 20:04:30343 mL/minFKT/V SMJKPBBPJM7086-34-03 20:04:251.52F PRESCRIBED DAYS/ZYIB1094-51-75 20:04:253 Day/WkFLENGTH OF DSVGXLRR6732-46-26 20:04:95918 minFVT (KT/V TX VOL)2023-06-27 20:04:2539.5 LFspKt/Z1007-77-17 20:04:251.57FURR%2023-06-27 20:04:2574 %FstdKT/V Lxuvk1381-08-43 20:04:25N/AF PATIENT SSY6264-77-20 20:04:2545 YearsFCURRENT JAE7291-91-58 20:04:25FVM (KT/V MEAN VOL)2023-06-27 20:04:2543.7FResidual kt/w1760-82-47 20:04:25FTOTAL HOURS/WEEK BMEVGNMS0405-27-15 20:04:2511 hrsFHEIGHT IN OTKUIV4713-56-28 20:04:25 69 InchesFDialyzer DYW9799-76-77 20:04:361310 CalcFeKt/J7217-97-20 20:04:251.34F BLOOD YJPB-LCY9336-63-27 20:04:96302AWBC%2023-06-27 20:04:2574 %FDIALYZER TCNM-RK7615-67-27 20:04:01838 mL/minFPRESCRIBED DAYS/NHQQ7292-52-30 20:04:253 Day/WkFWEIGHT - PRE DAY 20:04:2599.1 kgFstdKT/V Gamyi6390-86-10 20:04:25N/AFTBW (Matthew)2023-06-27 20:04:2549.3 LitersFCURRENT FJS2800-49-89 20:04:25FDialyzer MBZ6209-85-84 20:04:589670 CalcFHEIGHT IN WASVNH3821-20-50 20:04:2569 InchesFWEIGHT (KG)2023-06-27 20:04:2596 kgFVT (KT/V TX VOL)2023-06-27 20:04:2539.5 ZQvLZU6137-42-03 20:04:250.94 G/KG/DFVM (KT/V MEAN VOL)2023-06-27 20:04:2543.7FStd Renal KT/A9642-03-41 20:04:25N/AFTOTAL HOURS/WEEK DIALYSIS 2023-06-27 20:04:2511 hrsFBLOOD OBMU-CAT3693-86-27 20:04:99369ZKCLLQM OF GMQYWNYO4942-69-07 20:04:32788 minFPATIENT VUJ7296-22-32 20:04:2545 YearsFBSA YIVTIE3969-26-91 20:04:252.12 sq mFWEIGHT - POST DAY 20:04:2596.1 kg FResidual kt/k7745-74-45 20:04:25FKT/V WNBZKEDRNO5554-05-25 20:04:251.52FTotal Kt/S2185-88-29 20:04:251.57FAMPUTATE GSHDWC9906-55-23 20:04:250FspKt/N4918-21-87 20:04:251.57FeKt/X4759-29-15 20:04:251.34FstdKt/V (DIAL)2023-06-27 20:04:25N/AF stdKt/V (DIAL)2023-06-27 16:59:52N/AFLENGTH OF KZXYCPKN0158-13-47 16:59:45354 minFspKt/T7517-71-30 16:59:521.44FResidual kt/h1013-62-03 16:59:52FVT (KT/V TX VOL)2023-06-27 16:59:5244.6 LFWEIGHT - PRE DAY 16:59:5296.1 kgF CURRENT XCW0484-11-32 16:59:52FPATIENT JZE0675-21-96 16:59:5245 YearsFeKt/V 2023-06-27 16:59:521.24FURR%2023-06-27 16:59:5273 %FstdKT/V Myrpv5977-56-99 16:59:52N/RIxYJO6353-09-58 16:59:520.76 G/KG/DFBSA CMSNOM8001-24-73 16:59:522.12 sq mFDIALYZER FCLO-CH5819-00-27 16:59:28543 mL/minFPRESCRIBED DAYS/WEEK 2023-06-27 16:59:523 Day/WkFWEIGHT (KG)2023-06-27 16:59:5296 kgFAMPUTATE FACTOR 2023-06-27 16:59:520FWEIGHT - POST DAY 16:59:5296 kgFTOTAL HOURS/WEEK ADPUAJLY4923-85-49 16:59:5211 hrsFBLOOD JQOH-HMH1922-80-27 16:59:52 385FKT/V RMATYAZYQV6890-26-26 16:59:521.68FDialyzer NZD1487-34-05 16:59:434263 CalcFStd Renal KT/G9473-05-90 16:59:52N/AFTBW (Matthew)2023-06-27 16:59:5249.26 LitersFHEIGHT IN VBFZLD7526-98-88 16:59:5269 InchesFTotal Kt/W4638-84-38 16:59:521.44FVM (KT/V MEAN VOL)2023-06-27 16:59:5245.1FstdKt/V (DIAL)2023-06-27 16:59:52N/AFVT (KT/V TX VOL)2023-06-27 16:59:5244.6 LFLENGTH OF DIALYSIS 2023-06-27 16:59:19690 minFspKt/E8358-22-61 16:59:521.44FeKt/W7685-35-32 16:59:521.24FstdKT/V Wdufw3953-67-73 16:59:52N/AFResidual kt/i4777-45-57 16:59:52FWEIGHT (KG)2023-06-27 16:59:5296 kgFWEIGHT - PRE DAY 16:59:5296.1 kgFURR%2023-06-27 16:59:5273 %FDIALYZER DVMZ-UZ9411-52-27 16:59:52 500 mL/lobZtDZH5306-56-11 16:59:520.76 G/KG/DFBSA SXDSIQ1513-98-48 16:59:522.12 sq mFCURRENT CIC8363-78-26 16:59:52FPRESCRIBED DAYS/BVYX8266-37-53 16:59:523 Day/WkFAMPUTATE TEIXHR9762-55-75 16:59:520FPATIENT KUN1290-81-09 16:59:5245 YearsFKT/V EVWCAKBOBK6145-46-99 16:59:521.68FVM (KT/V MEAN VOL)2023-06-27 16:59:5245.1FTotal Kt/Z9245-16-96 16:59:521.44FTOTAL HOURS/WEEK DIALYSIS 2023-06-27 16:59:5211 hrsFWEIGHT - POST DAY 16:59:5296 kgFDialyzer BWV9708-73-87 16:59:881903 CalcFTBW (Matthew)2023-06-27 16:59:5249.26 LitersF BLOOD ZEFR-PWP1072-11-27 16:59:28689FSKWXOO IN ALGRQI2539-66-40 16:59:5269 InchesFStd Renal KT/H2201-44-30 16:59:52N/AFUrea nitrogen [Mass/volume] in Serum or Plasma --post mebuemni1263-81-73 06:24:3315 mg/dLF9.0-23.0Urea nitrogen [Mass/volume] in Serum or Plasma --post edaawpaf9048-06-61 06:24:3315 mg/dLF 9.0-23.0Urea nitrogen [Mass/volume] in Serum or Plasma --post rlepuyjt4127-31-80 06:24:3315 mg/dLF9.0-23.0Creatinine [Mass/volume] in Serum or Axhjvo1617-83-07 05:16:297.45 mg/dLF0.7-1.3Urea nitrogen [Mass/volume] in Serum or Plasma 2023-06-14 05:16:2957 mg/dLF9.0-23.0Creatinine [Mass/volume] in Serum or Plasma 2023-06-14 05:16:297.45 mg/dLF0.7-1.3Urea nitrogen [Mass/volume] in Serum or Nucagj2948-27-96 05:16:2957 mg/dLF9.0-23.0Urea nitrogen [Mass/volume] in Serum or Ebwiec1172-63-40 05:16:2957 mg/dLF9.0-23.0Creatinine [Mass/volume] in Serum or Bwogkm0935-22-04 05:16:297.45 mg/dLF0.7-1.3Urea nitrogen [Mass/volume] in Serum or Qupiuw2599-89-27 05:03:4649 mg/dLF9.0-23.0Creatinine [Mass/volume] in Serum or Rwback6409-07-40 05:03:467.12 mg/dLF0.7-1.3Urea nitrogen [Mass/volume] in Serum or Gnycoh5026-60-59 05:03:4649 mg/dLF9.0-23.0Creatinine [Mass/volume] in Serum or Fqcezj4662-47-73 05:03:467.12 mg/dLF0.7-1.3Urea nitrogen [Mass/volume] in Serum or Plasma --post dcgnpgyx1516-99-80 03:21:4413 mg/dLF 9.0-23.0Urea nitrogen [Mass/volume] in Serum or Plasma --post zljqwoml3499-23-86 03:21:4413 mg/dLF9.0-23.0VM (KT/V MEAN VOL)2023-04-12 21:43:2945.3FTOTAL HOURS/WEEK HZLSKBNG1960-28-45 21:43:2915 hrsFTBW (Matthew)2023-04-12 21:43:29 48.96 LitersFBSA IZSTJG0112-59-38 21:43:292.12 sq mFeKt/Y6084-94-76 21:43:291.2F Dialyzer VXQ2246-54-03 21:43:603111 CalcFCURRENT NLE1159-96-18 21:43:29FStd Renal KT/J6914-04-36 21:43:29N/AFPRESCRIBED DAYS/DTTT2041-94-72 21:43:293 Day/Wk FTotal Kt/V8844-50-82 21:43:291.39FResidual kt/c3162-38-70 21:43:29FnPCR 2023-04-12 21:43:291.07 G/KG/DFVT (KT/V TX VOL)2023-04-12 21:43:2945.1 LFWEIGHT - PRE DAY 21:43:2998 kgFURR%2023-04-12 21:43:2970 %FstdKT/V Total 2023-04-12 21:43:29N/AFWEIGHT - POST DAY 21:43:2995.1 kgFspKt/V 2023-04-12 21:43:291.39FKT/V SICSAPAHSG9210-16-57 21:43:291.59FDIALYZER FLOW-QD 2023-04-12 21:43:39470 mL/minFWEIGHT (KG)2023-04-12 21:43:2996 kgFAMPUTATE GSRPLJ6719-14-92 21:43:290FLENGTH OF NEZVPGVJ5044-78-75 21:43:47872 minFPATIENT UPL8524-98-91 21:43:2945 YearsFHEIGHT IN UBKCRH6445-72-54 21:43:2969 InchesF BLOOD YLEB-JNV0440-80-11 21:43:03420FtqmTu/V (DIAL)2023-04-12 21:43:29N/AFVM (KT/V MEAN VOL)2023-04-12 21:43:2945.3FTBW (Matthew)2023-04-12 21:43:2948.96 LitersFBSA HVKGRN3197-71-09 21:43:292.12 sq mFeKt/E8464-69-80 21:43:291.2FTOTAL HOURS/WEEK MAKVWCAZ7979-87-93 21:43:2915 hrsFstdKT/V Crowz5055-55-78 21:43:29N/A FCURRENT PNT4486-03-68 21:43:29FWEIGHT - PRE DAY 21:43:2998 kgF WEIGHT - POST DAY 21:43:2995.1 kgFStd Renal KT/L6004-50-78 21:43:29 N/AFResidual kt/x9958-67-68 21:43:29FTotal Kt/T9964-02-10 21:43:291.39FDialyzer MJR2334-52-20 21:43:331520 CalcFPRESCRIBED DAYS/RWVO3953-36-02 21:43:293 Day/WkF xMZZ5728-35-60 21:43:291.07 G/KG/DFURR%2023-04-12 21:43:2970 %FVT (KT/V TX VOL) 2023-04-12 21:43:2945.1 LFDIALYZER LPMT-YC6774-51-11 21:43:87423 mL/minFPATIENT MGQ8871-86-38 21:43:2945 YearsFWEIGHT (KG)2023-04-12 21:43:2996 kgFspKt/V 2023-04-12 21:43:291.39FLENGTH OF RJTXJDBD1970-51-02 21:43:01029 minFAMPUTATE FGFGXT1227-65-07 21:43:290FstdKt/V (DIAL)2023-04-12 21:43:29N/AFBLOOD FLOW-QWB 2023-04-12 21:43:23864FHIEIFD IN VYBOKP0120-33-54 21:43:2969 InchesFKT/V QTIZRBPKYE0590-25-03 21:43:291.59FCreatinine [Mass/volume] in Serum or Plasma 2023-04-12 21:40:377.06 mg/dLF0.7-1.3Urea nitrogen [Mass/volume] in Serum or Omdwdm4862-53-58 21:40:3769 mg/dLF9.0-23.0Creatinine [Mass/volume] in Serum or Grfkni6203-65-71 21:40:377.06 mg/dLF0.7-1.3Urea nitrogen [Mass/volume] in Serum or Ifvsyw8937-41-88 21:40:3769 mg/dLF9.0-23.0Urea nitrogen [Mass/volume] in Serum or Plasma --post zqdpdfjh8487-14-39 16:35:5321 mg/dLF9.0-23.0Urea nitrogen [Mass/volume] in Serum or Plasma --post sxwfcmui8544-13-98 16:35:5321 mg/dLF 9.0-23.0stdKT/V Mfrxo8633-98-64 13:11:11N/AFLENGTH OF TSEYQHWW4003-39-68 13:11:33817 minFBLOOD OSSJ-GPR1693-62-14 13:11:86431GWfyfc Kt/F8242-26-88 13:11:111.38FAMPUTATE AUJSYV7713-80-06 13:11:110FTBW (Matthew)2023-03-15 13:11:11 48.22 LitersFWEIGHT (KG)2023-03-15 13:11:1192.3 kgFHEIGHT IN DZBFTS7597-32-78 13:11:1169 InchesFspKt/L0184-28-04 13:11:111.38FWEIGHT - POST DAY 13:11:1192.9 slZlHWV1685-70-91 13:11:110.91 G/KG/DFVT (KT/V TX VOL)2023-03-15 13:11:1146.2 LFCURRENT WDL4602-02-43 13:11:11FeKt/Q9169-53-66 13:11:111.18F DIALYZER BLIF-GC8007-91-14 13:11:21302 mL/minFWEIGHT - PRE DAY 13:11:1195.1 kgFDialyzer OPB5236-14-19 13:11:404661 CalcFKT/V PRESCRIBED 2023-03-15 13:11:111.61FVM (KT/V MEAN VOL)2023-03-15 13:11:1145.4FResidual kt/v 2023-03-15 13:11:11FURR%2023-03-15 13:11:1169 %FPRESCRIBED DAYS/NJKU1030-86-70 13:11:113 Day/WkFBSA LMONNT1628-18-97 13:11:112.08 sq mFStd Renal KT/E3793-48-99 13:11:11N/AFstdKt/V (DIAL)2023-03-15 13:11:11N/AFPATIENT UWH1908-00-64 13:11:11 47 YearsFTOTAL HOURS/WEEK GECBBTUK7757-53-74 13:11:1114 hrsFCreatinine [Mass/volume] in Serum or Rtzpqt4114-73-58 22:39:336.7 mg/dLF0.7-1.3Urea nitrogen [Mass/volume] in Serum or Digzoc2935-11-51 22:39:3342 mg/dLF9.0-23.0 Urea nitrogen [Mass/volume] in Serum or Plasma --post dcsvryqe6866-19-56 21:07:3013 mg/dLF9.0-23.0BSA WYALMZ0034-48-79 00:17:442.13 sq mFstdKT/V Total 2023-02-15 00:17:44N/AFVT (KT/V TX VOL)2023-02-15 00:17:4444.6 LFHEIGHT IN DXOOHP7553-59-27 00:17:4469 InchesFWEIGHT (KG)2023-02-15 00:17:4498 kgFTBW (Matthew)2023-02-15 00:17:4449.94 LitersFTOTAL HOURS/WEEK YLNCXHUF5718-89-91 00:17:4411 hrsFeKt/R0157-58-18 00:17:441.3FTotal Kt/P8825-59-08 00:17:441.51FVM (KT/V MEAN VOL)2023-02-15 00:17:4445.1FPRESCRIBED DAYS/GVSQ2946-12-36 00:17:443 Day/WkFAMPUTATE NMPCJZ4901-03-89 00:17:440FPATIENT QXX0171-54-84 00:17:4445 YearsFResidual kt/p3589-54-35 00:17:44FDIALYZER CZYW-IC6409-07-16 00:17:36821 mL/minFURR%2023-02-15 00:17:4473 %FCURRENT DVV5167-03-19 00:17:27DeGWG7016-53-92 00:17:440.89 G/KG/DFWEIGHT - PRE DAY 00:17:06967.2 kgFLENGTH OF CNALHQLP5516-85-30 00:17:47672 minFstdKt/V (DIAL)2023-02-15 00:17:44N/AFBLOOD BIOA-TLO6753-49-16 00:17:52332BUtk Renal KT/L7737-94-48 00:17:44N/AFKT/V SIPQENFZTD6797-31-69 00:17:441.65FDialyzer NQP5827-01-83 00:17:547941 CalcF WEIGHT - POST DAY 00:17:4498 kgFspKt/J4845-30-80 00:17:441.51FWEIGHT (KG)2023-02-15 00:17:4498 kgFstdKT/V Ydmex2515-07-78 00:17:44N/AFBSA ROSETTE 2023-02-15 00:17:442.13 sq mFVT (KT/V TX VOL)2023-02-15 00:17:4444.6 LFHEIGHT IN GNIXZQ6883-34-15 00:17:4469 InchesFResidual kt/k6761-69-23 00:17:44FTOTAL HOURS/WEEK UBMQBRSJ9210-46-14 00:17:4411 hrsFPATIENT IGC3072-67-53 00:17:4445 YearsFPRESCRIBED DAYS/VSWB5460-87-82 00:17:443 Day/WkFTotal Kt/E8629-94-31 00:17:441.51FVM (KT/V MEAN VOL)2023-02-15 00:17:4445.1FURR%2023-02-15 00:17:4473 %FTBW (Matthew)2023-02-15 00:17:4449.94 LitersFAMPUTATE AGFJIJ7483-09-65 00:17:440FeKt/X5123-51-28 00:17:441.3FCURRENT TDZ7050-55-89 00:17:44FstdKt/V (DIAL)2023-02-15 00:17:44N/AFDIALYZER CKAS-FP0178-42-16 00:17:68691 mL/minF WEIGHT - POST DAY 00:17:4498 kgFBLOOD IGFG-AWD5519-10-16 00:17:77059 FKT/V HVPNFNCNCL9014-85-36 00:17:441.65FspKt/C7951-17-90 00:17:441.51FLENGTH OF RDZKCZYE9750-87-14 00:17:84955 minFWEIGHT - PRE DAY 00:17:62200.2 kg LtIIH7911-77-63 00:17:440.89 G/KG/DFDialyzer KJW8066-48-59 00:17:037211 CalcFStd Renal KT/X7364-94-27 00:17:44N/AFWEIGHT (KG)2023-02-15 00:17:4498 kgFURR% 2023-02-15 00:17:4473 %FstdKT/V Mnwba7466-62-14 00:17:44N/AFDIALYZER FLOW-QD 2023-02-15 00:17:75628 mL/minFResidual kt/e4458-89-36 00:17:44FPRESCRIBED DAYS/RSDK0220-53-89 00:17:443 Day/WkFAMPUTATE GTZBKU9447-38-35 00:17:440FCURRENT YIK9428-78-64 00:17:44FspKt/P1280-06-96 00:17:441.51FKT/V BOKEOPWMFD5097-10-97 00:17:441.65FBLOOD MNVL-LEP2208-25-16 00:17:08118NFJWSMR - PRE DAY 00:17:58656.2 kgFVM (KT/V MEAN VOL)2023-02-15 00:17:4445.1FWEIGHT - POST DAY 1 2023-02-15 00:17:4498 kgFHEIGHT IN OBKFPS7571-93-17 00:17:4469 InchesFPATIENT BKB8532-21-70 00:17:4445 YearsFBSA QFZFAV2741-66-32 00:17:442.13 sq mFVT (KT/V TX VOL)2023-02-15 00:17:4444.6 LFeKt/N3246-36-41 00:17:441.3FTotal Kt/V 2023-02-15 00:17:441.51FTBW (Matthew)2023-02-15 00:17:4449.94 LitersFTOTAL HOURS/WEEK IWZSSFIW7488-95-08 00:17:4411 hrsFLENGTH OF ZPWCPSFB3468-46-14 00:17:54205 minFDialyzer XND5918-10-37 00:17:261334 CalcFStd Renal KT/V 2023-02-15 00:17:44N/CFgHHF6250-01-42 00:17:440.89 G/KG/DFstdKt/V (DIAL) 2023-02-15 00:17:44N/AFCreatinine [Mass/volume] in Serum or Yfrujn7360-78-25 00:16:327.25 mg/dLF0.7-1.3Urea nitrogen [Mass/volume] in Serum or Plasma 2023-02-15 00:16:3256 mg/dLF9.0-23.0Creatinine [Mass/volume] in Serum or Plasma 2023-02-15 00:16:327.25 mg/dLF0.7-1.3Urea nitrogen [Mass/volume] in Serum or Awcynj5242-89-59 00:16:3256 mg/dLF9.0-23.0Urea nitrogen [Mass/volume] in Serum or Wqicpm0190-55-85 00:16:3256 mg/dLF9.0-23.0Creatinine [Mass/volume] in Serum or Phmvwa4433-99-95 00:16:327.25 mg/dLF0.7-1.3Urea nitrogen [Mass/volume] in Serum or Plasma --post noqomfpb6564-53-99 17:25:3815 mg/dLF9.0-23.0Urea nitrogen [Mass/volume] in Serum or Plasma --post mhjcnokd5072-27-13 17:25:3815 mg/dLF 9.0-23.0Urea nitrogen [Mass/volume] in Serum or Plasma --post pvdrzhpv6306-53-33 17:25:3815 mg/dLF9.0-23.2qZDY8280-79-36 15:45:280.86 G/KG/DFTBW (Matthew) 2023-01-11 15:45:2850.04 LitersFWEIGHT - POST DAY 15:45:2898.3 kgF spKt/U7174-71-12 15:45:281.41FWEIGHT - PRE DAY 15:45:02598.5 kgF LENGTH OF PHNJGPEQ1442-49-59 15:45:18195 minFVT (KT/V TX VOL)2023-01-11 15:45:28 47.7 LFURR%2023-01-11 15:45:2871 %FstdKT/V Tfnjk0434-33-13 15:45:28N/AFDialyzer XFQ1092-74-63 15:45:112038 CalcFVM (KT/V MEAN VOL)2023-01-11 15:45:2845.3F Residual kt/m7608-07-82 15:45:28FDIALYZER BKQH-OG4411-97-12 15:45:06942 mL/minF WEIGHT (KG)2023-01-11 15:45:2898 kgFAMPUTATE VGDQPS3202-31-68 15:45:280FKT/V KJUEJYSXSV7852-23-98 15:45:281.67FBLOOD GFLH-ZTX8271-41-12 15:45:62685I PRESCRIBED DAYS/YLKD1733-76-29 15:45:283 Day/WkFTotal Kt/T5503-26-64 15:45:28 1.41FCURRENT GEI5155-78-58 15:45:28FeKt/S3210-68-53 15:45:281.22FPATIENT AGE 2023-01-11 15:45:2845 YearsFBSA JWWCEX1224-73-84 15:45:282.13 sq mFTOTAL HOURS/WEEK HKMIRHNA0483-20-09 15:45:2811 hrsFstdKt/V (DIAL)2023-01-11 15:45:28 N/AFStd Renal KT/H9715-49-91 15:45:28N/AFHEIGHT IN ZHMGYN5317-10-05 15:45:2869 InchesFKT/V GKZJJAYAMK5994-84-13 15:45:281.67FBLOOD RLWD-POS2212-75-12 15:45:28 318FnMED7978-10-67 15:45:280.86 G/KG/DFTBW (Matthew)2023-01-11 15:45:2850.04 LitersFTotal Kt/X7085-46-78 15:45:281.41FPATIENT FXD1545-45-08 15:45:2845 YearsF WEIGHT - POST DAY 15:45:2898.3 kgFDialyzer NNN3372-51-21 15:45:28 1264 CalcFBSA KDWFQR4475-13-26 15:45:282.13 sq mFeKt/U5370-06-50 15:45:281.22F stdKT/V Bnqqs2047-55-81 15:45:28N/AFPRESCRIBED DAYS/TWXN6672-96-64 15:45:283 Day/WkFspKt/H0212-61-02 15:45:281.41FTOTAL HOURS/WEEK QFFGOUCF1567-46-95 15:45:2811 hrsFURR%2023-01-11 15:45:2871 %FLENGTH OF ISPGTQKQ8800-85-39 15:45:28 243 minFCURRENT OWL0550-65-68 15:45:28FWEIGHT - PRE DAY 15:45:28 100.5 kgFVT (KT/V TX VOL)2023-01-11 15:45:2847.7 LFVM (KT/V MEAN VOL)2023-01-11 15:45:2845.3FAMPUTATE CTZNNX8292-66-22 15:45:280FstdKt/V (DIAL)2023-01-11 15:45:28N/AFStd Renal KT/X4432-79-70 15:45:28N/AFWEIGHT (KG)2023-01-11 15:45:28 98 kgFDIALYZER TSDY-EF8723-78-12 15:45:99500 mL/minFResidual kt/e1486-67-01 15:45:28FHEIGHT IN TWICMB9720-11-01 15:45:2869 InchesFCreatinine [Mass/volume] in Serum or Xelkvk1447-95-91 15:42:377.93 mg/dLF0.7-1.3Urea nitrogen [Mass/volume] in Serum or Etobza4202-87-78 15:42:3755 mg/dLF9.0-23.0Creatinine [Mass/volume] in Serum or Mpxcte3284-44-94 15:42:377.93 mg/dLF0.7-1.3Urea nitrogen [Mass/volume] in Serum or Ylutpp0938-12-57 15:42:3755 mg/dLF9.0-23.0 Urea nitrogen [Mass/volume] in Serum or Plasma --post azbvwbxo5698-31-96 15:17:3316 mg/dLF9.0-23.0Urea nitrogen [Mass/volume] in Serum or Plasma --post fusxbjen7170-07-72 15:17:3316 mg/dLF9.0-23.0Total Kt/Y6212-20-62 20:18:581.41F stdKT/V Npbog1087-56-37 20:18:58N/AFPATIENT TTB7447-37-64 20:18:5845 YearsF Dialyzer PXZ0028-35-83 20:18:649655 CalcFWEIGHT - POST DAY 20:18:58 97.2 kgFKT/V VLDZXMODZY3700-50-33 20:18:581.67FAMPUTATE OFFIFV3339-94-22 20:18:580FStd Renal KT/X1795-08-52 20:18:58N/AFDIALYZER ZLAM-BV5393-30-13 20:18:89539 mL/minFHEIGHT IN ZCTKBI7161-63-31 20:18:5869 InchesFstdKt/V (DIAL) 2022-12-13 20:18:58N/AFBLOOD ECUT-ABA2993-45-13 20:18:64982JKNSNVX OF DIALYSIS 2022-12-13 20:18:55546 minFURR%2022-12-13 20:18:5869 %FPRESCRIBED DAYS/WEEK 2022-12-13 20:18:583 Day/MdGvLNM2471-38-35 20:18:580.96 G/KG/DFVM (KT/V MEAN VOL)2022-12-13 20:18:5844.5FspKt/N9080-48-80 20:18:581.41FBSA DYCSIM8600-57-12 20:18:582.13 sq mFTBW (Matthew)2022-12-13 20:18:5849.67 LitersFTOTAL HOURS/WEEK RPQBEYRE4985-66-74 20:18:5811 hrsFResidual kt/v1734-84-72 20:18:58FWEIGHT (KG) 2022-12-13 20:18:5897 kgFWEIGHT - PRE DAY 20:18:83494.4 kgFVT (KT/V TX VOL)2022-12-13 20:18:5846.9 LFCURRENT WIW2504-46-03 20:18:58FeKt/C6025-27-96 20:18:581.22FUrea nitrogen [Mass/volume] in Serum or Plasma --post dialysis 2022-12-13 20:17:3219 mg/dLF9.0-23.0Urea nitrogen [Mass/volume] in Serum or Ifhcrd3396-77-46 18:16:4261 mg/dLF9.0-23.0Creatinine [Mass/volume] in Serum or Pvnzmz5881-36-75 18:16:407.55 mg/dLF0.7-1.3stdKt/V (DIAL)2022-11-15 15:20:27N/AF VT (KT/V TX VOL)2022-11-15 15:20:2745.8 LFspKt/M8335-11-03 15:20:271.39FStd Renal KT/U3537-91-01 15:20:27N/AFBSA NXSZBK0264-43-39 15:20:272.12 sq mFDialyzer KPE4835-92-34 15:20:880307 CalcFPATIENT YXB2891-30-63 15:20:2745 YearsFTotal Kt/A2152-06-04 15:20:271.39FKT/V YGJBDXYIGL3468-46-82 15:20:271.67FLENGTH OF UBXEZYXY2225-82-36 15:20:74305 minFVM (KT/V MEAN VOL)2022-11-15 15:20:2743.7F HEIGHT IN PLJNFT5151-02-21 15:20:2769 InchesFTOTAL HOURS/WEEK BJDOSWIP0610-55-20 15:20:2711FURR%2022-11-15 15:20:2770 %FAMPUTATE TALHHB5559-10-18 15:20:270F Residual kt/v0255-04-90 15:20:27FstdKT/V Mccfa8131-79-07 15:20:27N/AFDIALYZER XRGS-VZ6804-34-16 15:20:77690 mL/pvyWbQCI3217-27-70 15:20:270.67 G/KG/DFWEIGHT - PRE DAY 15:20:2798.2 kgFWEIGHT (KG)2022-11-15 15:20:2796 kgFBLOOD ARJC-QJF3000-79-16 15:20:27732RIWDXZIF FSK3871-44-26 15:20:27FeKt/P7457-25-91 15:20:271.2FPRESCRIBED DAYS/NHQM2693-34-31 15:20:273 Day/WkFWEIGHT - POST DAY 1 2022-11-15 15:20:2795.9 kgFTBW (Matthew)2022-11-15 15:20:2749.23 LitersFVT (KT/V TX VOL)2022-11-15 15:20:2745.8 LFspKt/C0381-97-28 15:20:271.39FDialyzer RANDELL 2022-11-15 15:20:794439 CalcFPATIENT RQE9722-87-45 15:20:2745 YearsFTotal Kt/V 2022-11-15 15:20:271.39FKT/V MIYPECRSPX5360-85-50 15:20:271.67FstdKt/V (DIAL) 2022-11-15 15:20:27N/TXpYNV5443-31-11 15:20:270.67 G/KG/DFPRESCRIBED DAYS/WEEK 2022-11-15 15:20:273 Day/WkFWEIGHT (KG)2022-11-15 15:20:2796 kgFURR%2022-11-15 15:20:2770 %FAMPUTATE SRXBPI5744-84-14 15:20:270FDIALYZER CBEY-LA5902-10-16 15:20:49189 mL/minFWEIGHT - POST DAY 15:20:2795.9 kgFResidual kt/v 2022-11-15 15:20:27FStd Renal KT/A4986-50-46 15:20:27N/AFBSA TSSKHA2681-76-61 15:20:272.12 sq mFVM (KT/V MEAN VOL)2022-11-15 15:20:2743.7FBLOOD FLOW-QWB 2022-11-15 15:20:38147YPEMHPU OF ADQIFOPG2922-54-31 15:20:54061 minFCURRENT KRU 2022-11-15 15:20:27FstdKT/V Ikrak3406-70-84 15:20:27N/AFHEIGHT IN INCHES 2022-11-15 15:20:2769 InchesFTOTAL HOURS/WEEK YRSKXFOL6549-67-00 15:20:2711F WEIGHT - PRE DAY 15:20:2798.2 kgFTBW (Vipul)2022-11-15 15:20:27 49.23 LitersFeKt/T1199-25-11 15:20:271.2FBSA MOKDLB6788-65-55 15:20:272.12 sq mF PATIENT NCR7540-58-66 15:20:2745 YearsFWEIGHT - PRE DAY 15:20:2798.2 kgFWEIGHT (KG)2022-11-15 15:20:2796 kgFVM (KT/V MEAN VOL)2022-11-15 15:20:27 43.7FTotal Kt/Q0001-75-48 15:20:271.51OuANI1942-07-24 15:20:270.67 G/KG/DF AMPUTATE FUOFHV3869-70-19 15:20:270FTBW (Vipul)2022-11-15 15:20:2749.23 LitersF Std Renal KT/Z0920-50-50 15:20:27N/AFCURRENT XWZ2019-65-45 15:20:27FLENGTH OF ZNGTLNCO4575-77-59 15:20:06327 minFWEIGHT - POST DAY 15:20:2795.9 kg FPRESCRIBED DAYS/ZHSW9038-62-51 15:20:273 Day/WkFResidual kt/n5764-20-91 15:20:27FspKt/P8445-68-57 15:20:271.39FTOTAL HOURS/WEEK KHSLUPCS6965-80-98 15:20:2711FstdKT/V Eowoy5728-98-73 15:20:27N/AFeKt/S1211-53-35 15:20:271.2F stdKt/V (DIAL)2022-11-15 15:20:27N/AFURR%2022-11-15 15:20:2770 %FDIALYZER WVVE-CZ3386-93-16 15:20:46653 mL/minFDialyzer NYG6024-90-87 15:20:002120 CalcF HEIGHT IN NYWEXH6722-87-53 15:20:2769 InchesFVT (KT/V TX VOL)2022-11-15 15:20:27 45.8 LFKT/V WIIWYKBZZW9880-81-43 15:20:271.67FBLOOD PLES-UAH2548-94-16 15:20:27 380FCreatinine [Mass/volume] in Serum or Ntfhfz3747-42-98 15:18:318.01 mg/dLF 0.7-1.3Urea nitrogen [Mass/volume] in Serum or Tjpmkw5810-85-58 15:18:3140 mg/dL F9.0-23.0Urea nitrogen [Mass/volume] in Serum or Mhjfxi0861-69-43 15:18:3140 mg/dLF9.0-23.0Creatinine [Mass/volume] in Serum or Twyjhg7902-82-93 15:18:318.01 mg/dLF0.7-1.3Urea nitrogen [Mass/volume] in Serum or Rtpeag3794-49-71 15:18:31 40 mg/dLF9.0-23.0Creatinine [Mass/volume] in Serum or Cpxcsw4787-00-58 15:18:31 8.01 mg/dLF0.7-1.3Urea nitrogen [Mass/volume] in Serum or Plasma --post dialysis 2022-11-15 13:57:2112 mg/dLF9.0-23.0Urea nitrogen [Mass/volume] in Serum or Plasma --post zsfqrzxn5561-42-86 13:57:2112 mg/dLF9.0-23.0Urea nitrogen [Mass/volume] in Serum or Plasma --post jcsakxnp8579-45-58 13:57:2112 mg/dLF 9.0-23.0stdKt/V (DIAL)2022-10-13 00:16:29N/AFeKt/F5069-81-62 00:16:291.06FTBW (Matthew)2022-10-13 00:16:2949.13 LitersFDIALYZER TAKZ-BE2326-20-14 00:16:60427 mL/minFResidual kt/b3946-10-53 00:16:29FWEIGHT (KG)2022-10-13 00:16:2995 kgF LENGTH OF RFPLUSOE9232-99-86 00:16:98118 minFPATIENT EZI8421-41-08 00:16:2945 YearsFVM (KT/V MEAN VOL)2022-10-13 00:16:2943FTOTAL HOURS/WEEK DIALYSIS 2022-10-13 00:16:299FspKt/C4601-88-10 00:16:291.25FCURRENT RJW9086-20-74 00:16:29FWEIGHT - PRE DAY 00:16:2996.3 kgFAMPUTATE SWZTXL3107-30-77 00:16:290FstdKT/V Mvgct7426-25-20 00:16:29N/AFBLOOD QAHD-WXE4504-66-14 00:16:29 450FURR%2022-10-13 00:16:2969 %FStd Renal KT/E3273-04-74 00:16:29N/AFHEIGHT IN WWYBIF2969-47-77 00:16:2969 InchesFPRESCRIBED DAYS/NGPU2585-47-25 00:16:293 Day/WkFDialyzer RZO7146-63-14 00:16:782722 CalcFVT (KT/V TX VOL)2022-10-13 00:16:2943.4 LFBSA RFVDUO1876-37-54 00:16:292.11 sq mFWEIGHT - POST DAY 1 2022-10-13 00:16:2995.6 ntZlSWA3604-78-25 00:16:290.56 G/KG/DFKT/V PRESCRIBED 2022-10-13 00:16:291.35FTotal Kt/M8923-52-92 00:16:291.25FstdKt/V (DIAL) 2022-10-13 00:16:29N/AFStd Renal KT/J3436-86-03 00:16:29N/AFTOTAL HOURS/WEEK NKSQUQKP1924-42-44 00:16:299FDialyzer MZK9858-87-58 00:16:288759 CalcFeKt/V 2022-10-13 00:16:291.06FAMPUTATE GZXDJT8641-24-31 00:16:290FBLOOD FLOW-QWB 2022-10-13 00:16:97440PGYRLFU IN LRGSKA7259-00-92 00:16:2969 InchesFWEIGHT - PRE DAY 00:16:2996.3 kgFTotal Kt/P2465-96-69 00:16:291.25FnPCR 2022-10-13 00:16:290.56 G/KG/DFBSA LIQBTS4204-03-63 00:16:292.11 sq mFDIALYZER PWZQ-JW2866-55-14 00:16:93257 mL/minFResidual kt/q7673-81-36 00:16:29FTBW (Matthew)2022-10-13 00:16:2949.13 LitersFWEIGHT (KG)2022-10-13 00:16:2995 kgF LENGTH OF BJNCBODK3076-34-09 00:16:53369 minFCURRENT AYR3802-88-92 00:16:29F stdKT/V Zrvfu7476-43-73 00:16:29N/AFPRESCRIBED DAYS/ZMWE7397-10-38 00:16:293 Day/WkFVM (KT/V MEAN VOL)2022-10-13 00:16:2943FspKt/S7997-96-75 00:16:291.25F PATIENT QQY5351-48-60 00:16:2945 YearsFURR%2022-10-13 00:16:2969 %FWEIGHT - POST DAY 00:16:2995.6 kgFKT/V KOZKFIFKZC9288-06-51 00:16:291.35FVT (KT/V TX VOL)2022-10-13 00:16:2943.4 LFCreatinine [Mass/volume] in Serum or Plasma 2022-10-13 00:14:268.8 mg/dLF0.7-1.3Urea nitrogen [Mass/volume] in Serum or Ldiuad9508-34-97 00:14:2645 mg/dLF9.0-23.0Creatinine [Mass/volume] in Serum or Sxjaqu5572-47-10 00:14:268.8 mg/dLF0.7-1.3Urea nitrogen [Mass/volume] in Serum or Joiqbb5506-85-83 00:14:2645 mg/dLF9.0-23.0Urea nitrogen [Mass/volume] in Serum or Plasma --post xwomaock2438-33-53 00:05:4314 mg/dLF9.0-23.0Urea nitrogen [Mass/volume] in Serum or Plasma --post ndeaogwo8205-21-06 00:05:4314 mg/dLF 9.0-23.0PRESCRIBED DAYS/EEPC0096-55-72 00:44:443 Day/WkFTBW (Matthew)2022-09-16 00:44:4448.59 LitersFCURRENT ATB2262-03-58 00:44:44FDIALYZER BVYP-QC5914-24-17 00:44:58265 mL/minFTOTAL HOURS/WEEK SWRMYROH2104-24-44 00:44:448FDialyzer RANDELL 2022-09-16 00:44:042698 CalcFVT (KT/V TX VOL)2022-09-16 00:44:4442.8 LFURR% 2022-09-16 00:44:4473 %FWEIGHT (KG)2022-09-16 00:44:4492.6 kgFspKt/E0575-67-37 00:44:441.5FTotal Kt/A3959-01-25 00:44:441.5FPATIENT BBD4545-64-93 00:44:4445 YearsFKT/V QKPEVDVDRF9675-95-40 00:44:441.71FHEIGHT IN SGFGJG6034-10-47 00:44:44 69 InchesFBLOOD KCSH-FGF9975-73-17 00:44:61536IMIZEUQ - PRE DAY 00:44:4495.7 kgFVM (KT/V MEAN VOL)2022-09-16 00:44:4442.8FstdKt/V (DIAL) 2022-09-16 00:44:44N/AFstdKT/V Brvpr2148-18-36 00:44:44N/UZuVTN6871-06-95 00:44:440.74 G/KG/DFWEIGHT - POST DAY 00:44:4494 kgFAMPUTATE FACTOR 2022-09-16 00:44:440FResidual kt/m5824-96-21 00:44:44FStd Renal KT/V2942-45-22 00:44:44N/AFLENGTH OF EIHKITZG4908-22-99 00:44:15435 minFeKt/A9775-46-51 00:44:441.3FBSA VGOXFE8037-42-02 00:44:442.08 sq mFPRESCRIBED DAYS/WEEK 2022-09-16 00:44:443 Day/WkFTBW (Matthew)2022-09-16 00:44:4448.59 LitersFCURRENT TQA4914-88-24 00:44:44FDIALYZER VHTB-WR2794-94-17 00:44:55521 mL/minFWEIGHT - PRE DAY 00:44:4495.7 kgFPATIENT XAV0860-76-73 00:44:4445 YearsFKT/V YTEHICHLUR2880-37-04 00:44:441.71FHEIGHT IN FOEQVL0654-46-66 00:44:4469 InchesF VM (KT/V MEAN VOL)2022-09-16 00:44:4442.8FVT (KT/V TX VOL)2022-09-16 00:44:44 42.8 LFstdKt/V (DIAL)2022-09-16 00:44:44N/AFBLOOD QVJF-VRK5238-51-17 00:44:48642 FDialyzer OAK5650-56-42 00:44:978630 CalcFURR%2022-09-16 00:44:4473 %FspKt/V 2022-09-16 00:44:441.5FTotal Kt/G3226-14-84 00:44:441.5FWEIGHT (KG)2022-09-16 00:44:4492.6 kgFTOTAL HOURS/WEEK QVFEGXXN5567-36-19 00:44:448FBSA ROSETTE 2022-09-16 00:44:442.08 sq mFResidual kt/b3800-97-78 00:44:44FStd Renal KT/V 2022-09-16 00:44:44N/AFWEIGHT - POST DAY 00:44:4494 kgFnPCR 2022-09-16 00:44:440.74 G/KG/DFeKt/J8186-29-23 00:44:441.3FLENGTH OF DIALYSIS 2022-09-16 00:44:89661 minFAMPUTATE BYFDIP9135-33-53 00:44:440FstdKT/V Total 2022-09-16 00:44:44N/AFTBW (Matthew)2022-09-16 00:44:4448.59 LitersFPRESCRIBED DAYS/ETPU2110-86-28 00:44:443 Day/WkFCURRENT ZLU0702-20-31 00:44:44FDIALYZER BIBA-QZ3140-79-17 00:44:82711 mL/minFBLOOD USIC-JHI6231-14-17 00:44:31912QvqJj/V 2022-09-16 00:44:441.5FHEIGHT IN PTBBYK0113-20-28 00:44:4469 InchesFTotal Kt/V 2022-09-16 00:44:441.5FTOTAL HOURS/WEEK PQJGOIKR8710-69-30 00:44:448FWEIGHT - POST DAY 00:44:4494 kgFVT (KT/V TX VOL)2022-09-16 00:44:4442.8 LF Residual kt/e8397-44-78 00:44:44FLENGTH OF DMOQRFKW0416-17-40 00:44:81592 minF stdKt/V (DIAL)2022-09-16 00:44:44N/AFKT/V QFKYKZOMVQ1667-68-36 00:44:441.71F WEIGHT (KG)2022-09-16 00:44:4492.6 kgFDialyzer WDT8381-74-59 00:44:145004 CalcF WEIGHT - PRE DAY 00:44:4495.7 kgFURR%2022-09-16 00:44:4473 %FPATIENT HSJ1035-34-18 00:44:4445 YearsFeKt/L7215-86-21 00:44:441.3FVM (KT/V MEAN VOL) 2022-09-16 00:44:4442.8FStd Renal KT/L8352-50-11 00:44:44N/AFBSA ROSETTE 2022-09-16 00:44:442.08 sq mFstdKT/V Hsypp0532-88-72 00:44:44N/PRrWOH2640-65-50 00:44:440.74 G/KG/DFAMPUTATE SMYLKB0523-23-91 00:44:440FCreatinine [Mass/volume] in Serum or Zssugj0255-34-69 00:43:166.7 mg/dLF0.7-1.3Urea nitrogen [Mass/volume] in Serum or Optwns7563-02-36 00:43:1641 mg/dLF9.0-23.0Creatinine [Mass/volume] in Serum or Thcdqg5038-36-53 00:43:166.7 mg/dLF0.7-1.3Urea nitrogen [Mass/volume] in Serum or Phgcfp1061-93-08 00:43:1641 mg/dLF9.0-23.0 Urea nitrogen [Mass/volume] in Serum or Psnzen4625-10-34 00:43:1641 mg/dLF 9.0-23.0Creatinine [Mass/volume] in Serum or Yrngwd1767-72-80 00:43:166.7 mg/dLF 0.7-1.3Urea nitrogen [Mass/volume] in Serum or Plasma --post soejglgw9325-78-18 21:55:1611 mg/dLF9.0-23.0Urea nitrogen [Mass/volume] in Serum or Plasma --post lfbpwesj6429-05-61 21:55:1611 mg/dLF9.0-23.0Urea nitrogen [Mass/volume] in Serum or Plasma --post pgyxzxsb0969-99-41 21:55:1611 mg/dLF9.0-23.0PATIENT AGEVT (KT/V TX VOL)CURRENT KRUVM (KT/V MEAN VOL)HEIGHT IN INCHESTotal Kt/VBSA ROSETTE Std Renal KT/VWEIGHT - POST DAY 1eKt/VnPCRstdKt/V (DIAL)DIALYZER FLOW-QDTBW (Matthew)LENGTH OF DIALYSISWEIGHT (KG)WEIGHT - PRE DAY 1AMPUTATE FACTORUrea nitrogen [Mass/volume] in Serum or PlasmaKT/V PRESCRIBEDPRESCRIBED DAYS/WEEK Residual kt/vDialyzer KOABLOOD FLOW-QWBspKt/VstdKT/V TotalTOTAL HOURS/WEEK DIALYSISURR%AnemiaDescriptionDraw DateResult/UnitStatusRef RangeResult Comments HCT CALC [id number] 19:19:27FRECOLLECT - OUTDATED SPECIMEN,Unable to Calculate.HCT CALC STXS43391-68-04 19:19:27FRECOLLECT - OUTDATED SPECIMEN,Unable to Calculate.Hemoglobin [Mass/volume] in Obpzr8513-60-66 19:18:54FRECOLLECT - OUTDATED SPECIMENErythrocyte distribution width [Ratio] by Automated count 2024-04-18 19:18:54FRECOLLECT - OUTDATED SPECIMENMCHC [Mass/volume] by Automated nzzmu5427-97-25 19:18:54FRECOLLECT - OUTDATED SPECIMENMCV [Entitic volume] by Automated qgkhu9165-76-82 19:18:54FRECOLLECT - OUTDATED SPECIMENPlatelets [#/volume] in Blood by Automated eozyk2394-52-55 19:18:54FRECOLLECT - OUTDATED SPECIMENHematocrit [Volume Fraction] of Blood by Automated xlhax2457-22-91 19:18:54FRECOLLECT - OUTDATED SPECIMENMCH [Entitic mass] by Automated count 2024-04-18 19:18:54FRECOLLECT - OUTDATED SPECIMENErythrocytes [#/volume] in Blood by Automated cfnyv2034-89-96 19:18:54FRECOLLECT - OUTDATED SPECIMEN Hemoglobin [Mass/volume] in Eqguv2652-97-30 19:18:54FRECOLLECT - OUTDATED SPECIMENPlatelets [#/volume] in Blood by Automated wnwxu3408-35-92 19:18:54F RECOLLECT - OUTDATED SPECIMENHematocrit [Volume Fraction] of Blood by Automated fewdk8552-92-60 19:18:54FRECOLLECT - OUTDATED SPECIMENMCV [Entitic volume] by Automated dlshr2058-19-43 19:18:54FRECOLLECT - OUTDATED SPECIMENMCH [Entitic mass] by Automated xthwc1906-23-40 19:18:54FRECOLLECT - OUTDATED SPECIMEN Erythrocyte distribution width [Ratio] by Automated gaood6288-96-84 19:18:54F RECOLLECT - OUTDATED SPECIMENMCHC [Mass/volume] by Automated qweeb8300-53-92 19:18:54FRECOLLECT - OUTDATED SPECIMENErythrocytes [#/volume] in Blood by Automated ksnyn0437-39-21 19:18:54FRECOLLECT - OUTDATED SPECIMENIRON SATURATION 2024-04-18 11:10:3316 %F21.0-49.1TWZB8295-39-10 11:10:12592 ug/aFL296.0-425.0 IRON IEIWKLPUUB5305-58-97 11:10:3316 %F21.0-49.8ZGLJ8432-99-71 11:10:74749 ug/dL F250.0-425.0Iron [Mass/volume] in Serum or Nlagry9696-87-60 08:18:4753 ug/dLF 65.0-175.0Iron binding capacity.unsaturated [Mass/volume] in Serum or Plasma 2024-04-18 08:18:88971 ug/dLF75.0-360.0Iron [Mass/volume] in Serum or Plasma 2024-04-18 08:18:4753 ug/dLF65.0-175.0Iron binding capacity.unsaturated [Mass/volume] in Serum or Qbgogr4695-41-62 08:18:57694 ug/dLF75.0-360.0Ferritin [Mass/volume] in Serum or Pigxjw8516-90-78 05:53:0911 ng/mLF22.0-322.0Ferritin [Mass/volume] in Serum or Vzvrxx9815-52-87 05:53:0911 ng/mLF22.0-322.0HCT CALC NRAC76964-92-04 15:29:41FRECOLLECT - OUTDATED SPECIMEN,Unable to Calculate.HCT CALC UUNT58288-87-91 15:29:41FRECOLLECT - OUTDATED SPECIMEN,Unable to Calculate. HCT CALC UYZF62906-11-64 15:29:41FRECOLLECT - OUTDATED SPECIMEN,Unable to Calculate.Erythrocytes [#/volume] in Blood by Automated xcndf3854-50-57 15:29:20 FRECOLLECT - OUTDATED SPECIMENHemoglobin [Mass/volume] in Sjvdr6812-74-60 15:29:20FRECOLLECT - OUTDATED SPECIMENHematocrit [Volume Fraction] of Blood by Automated qjnlk7821-60-59 15:29:20FRECOLLECT - OUTDATED SPECIMENMCH [Entitic mass] by Automated ovnje5497-18-69 15:29:20FRECOLLECT - OUTDATED SPECIMEN Platelets [#/volume] in Blood by Automated pjmno3258-77-22 15:29:20FRECOLLECT - OUTDATED SPECIMENMCHC [Mass/volume] by Automated bqzqr9727-00-91 15:29:20F RECOLLECT - OUTDATED SPECIMENMCV [Entitic volume] by Automated ctulu9774-43-32 15:29:20FRECOLLECT - OUTDATED SPECIMENErythrocyte distribution width [Ratio] by Automated xoqjp7846-71-28 15:29:20FRECOLLECT - OUTDATED SPECIMENHemoglobin [Mass/volume] in Wditx8183-39-75 15:29:20FRECOLLECT - OUTDATED SPECIMENMCH [Entitic mass] by Automated zalyb6803-77-89 15:29:20FRECOLLECT - OUTDATED SPECIMENErythrocyte distribution width [Ratio] by Automated hinht6352-32-37 15:29:20FRECOLLECT - OUTDATED SPECIMENMCHC [Mass/volume] by Automated count 2024-03-14 15:29:20FRECOLLECT - OUTDATED SPECIMENErythrocytes [#/volume] in Blood by Automated fmeyz4586-67-64 15:29:20FRECOLLECT - OUTDATED SPECIMEN Platelets [#/volume] in Blood by Automated ryxri3757-46-53 15:29:20FRECOLLECT - OUTDATED SPECIMENHematocrit [Volume Fraction] of Blood by Automated count 2024-03-14 15:29:20FRECOLLECT - OUTDATED SPECIMENMCV [Entitic volume] by Automated ecdbx2045-70-63 15:29:20FRECOLLECT - OUTDATED SPECIMENMCH [Entitic mass] by Automated iztdt8918-43-94 15:29:20FRECOLLECT - OUTDATED SPECIMEN Erythrocyte distribution width [Ratio] by Automated cxnnm5105-60-94 15:29:20F RECOLLECT - OUTDATED SPECIMENPlatelets [#/volume] in Blood by Automated count 2024-03-14 15:29:20FRECOLLECT - OUTDATED SPECIMENMCHC [Mass/volume] by Automated ehmgd6737-40-67 15:29:20FRECOLLECT - OUTDATED SPECIMENHemoglobin [Mass/volume] in Yfuxa0785-79-44 15:29:20FRECOLLECT - OUTDATED SPECIMENErythrocytes [#/volume] in Blood by Automated wcrku7356-56-06 15:29:20FRECOLLECT - OUTDATED SPECIMEN Hematocrit [Volume Fraction] of Blood by Automated ynqrt0836-08-93 15:29:20F RECOLLECT - OUTDATED SPECIMENMCV [Entitic volume] by Automated jlgvr2474-75-06 15:29:20FRECOLLECT - OUTDATED SPECIMENFerritin [Mass/volume] in Serum or Plasma 2024-03-14 08:17:5913 ng/mLF22.0-322.0Ferritin [Mass/volume] in Serum or Plasma 2024-03-14 08:17:5913 ng/mLF22.0-322.0Ferritin [Mass/volume] in Serum or Plasma 2024-03-14 08:17:5913 ng/mLF22.0-322.1NRCM9530-24-47 09:40:22609 ug/dLF 250.0-425.0IRON ONYECSFIST4436-70-06 09:40:0120 %F21.0-49.0IRON SATURATION 2024-03-13 09:40:0120 %F21.0-49.1AFIJ1103-44-09 09:40:95647 ug/zFQ768.0-425.0 IRON DAGKLVHYCU1041-28-25 09:40:0120 %F21.0-49.7ZBEG7329-98-93 09:40:29715 ug/dL F250.0-425.0Iron [Mass/volume] in Serum or Zgatce3681-25-94 08:07:3567 ug/dLF 65.0-175.0Iron binding capacity.unsaturated [Mass/volume] in Serum or Plasma 2024-03-13 08:07:16036 ug/dLF75.0-360.0Iron [Mass/volume] in Serum or Plasma 2024-03-13 08:07:3567 ug/dLF65.0-175.0Iron binding capacity.unsaturated [Mass/volume] in Serum or Jfsagn2127-95-39 08:07:27865 ug/dLF75.0-360.0Iron [Mass/volume] in Serum or Qifstr4411-84-12 08:07:3567 ug/dLF65.0-175.0Iron binding capacity.unsaturated [Mass/volume] in Serum or Nnxqhh4443-52-31 08:07:35 265 ug/dLF75.0-360.0IRON AADQEIQSAI9485-19-13 08:52:4821 %F21.0-49.0TIBC 2024-02-14 08:52:49015 ug/fQJ614.0-425.0IRON NRRKMVFFKC6753-44-79 08:52:4821 %F 21.0-49.0ZYSI5654-05-41 08:52:74624 ug/eEW400.0-425.0IRON KUWXKMYGFJ5688-91-96 08:52:4821 %F21.0-49.1VBEN8208-25-52 08:52:97623 ug/sMO112.0-425.0Iron [Mass/volume] in Serum or Ydewhi3096-80-22 07:50:1467 ug/dLF65.0-175.0Iron binding capacity.unsaturated [Mass/volume] in Serum or Xtujat1100-11-39 07:50:14 254 ug/dLF75.0-360.0Iron binding capacity.unsaturated [Mass/volume] in Serum or Cbayzp4013-14-56 07:50:01348 ug/dLF75.0-360.0Iron [Mass/volume] in Serum or Gqmwvd7766-92-81 07:50:1467 ug/dLF65.0-175.0Iron [Mass/volume] in Serum or Flutoj0713-84-63 07:50:1467 ug/dLF65.0-175.0Iron binding capacity.unsaturated [Mass/volume] in Serum or Cvvcbj9612-94-49 07:50:94007 ug/dLF75.0-360.0Ferritin [Mass/volume] in Serum or Bkusyb3155-19-24 05:23:3312 ng/mLF22.0-322.0Ferritin [Mass/volume] in Serum or Jcrfvj7351-61-63 05:23:3312 ng/mLF22.0-322.0Ferritin [Mass/volume] in Serum or Cwxphp2994-87-68 05:23:3312 ng/mLF22.0-322.0HCT CALC XYDD08979-49-50 20:39:3744.4 %F42.0-52.0HCT CALC WHUL24876-14-51 20:39:3744.4 %F 42.0-52.0HCT CALC LUFJ92066-68-29 20:39:3744.4 %F42.0-52.0Erythrocyte distribution width [Ratio] by Automated mrdbb3285-02-76 20:36:1613.9 %F11.0-15.0 Platelets [#/volume] in Blood by Automated rstgr7187-89-58 20:36:94930 x 10^3 cells/wHN727.0-450.0Hemoglobin [Mass/volume] in Mjelj9584-31-87 20:36:1614.8 g/dLF14.0-18.0MCH [Entitic mass] by Automated qscdw8468-65-31 20:36:1630.8 pgF 25.9-34.2MCHC [Mass/volume] by Automated btpoj8997-22-73 20:36:1632.8 g/dLF 29.6-35.3Erythrocytes [#/volume] in Blood by Automated cwmug3081-82-76 20:36:16 4.78 x 10'6 cells/uLF4.6-6.2Hematocrit [Volume Fraction] of Blood by Automated cezfs7079-88-53 20:36:1645 %F41.0-53.0MCV [Entitic volume] by Automated count 2024-02-13 20:36:1694.1 fLF80.0-100.0MCHC [Mass/volume] by Automated count 2024-02-13 20:36:1632.8 g/dLF29.6-35.3Erythrocytes [#/volume] in Blood by Automated gslkj6365-56-69 20:36:164.78 x 10'6 cells/uLF4.6-6.2MCV [Entitic volume] by Automated czqbm9245-48-59 20:36:1694.1 fLF80.0-100.0Hemoglobin [Mass/volume] in Fpxob4784-50-22 20:36:1614.8 g/dLF14.0-18.0Platelets [#/volume] in Blood by Automated hlwpt2965-76-03 20:36:41088 x 10^3 cells/uQT312.0-450.0 Erythrocyte distribution width [Ratio] by Automated jaomu3033-58-71 20:36:1613.9 %F11.0-15.0MCH [Entitic mass] by Automated znkpt2913-79-41 20:36:1630.8 pgF 25.9-34.2Hematocrit [Volume Fraction] of Blood by Automated gwjrq0662-12-19 20:36:1645 %F41.0-53.0Erythrocyte distribution width [Ratio] by Automated count 2024-02-13 20:36:1613.9 %F11.0-15.0Hemoglobin [Mass/volume] in Qyjpu9504-59-82 20:36:1614.8 g/dLF14.0-18.0Platelets [#/volume] in Blood by Automated count 2024-02-13 20:36:89884 x 10^3 cells/bXT696.0-450.0MCH [Entitic mass] by Automated gbstz8236-44-91 20:36:1630.8 pgF25.9-34.2MCHC [Mass/volume] by Automated myxyz4480-29-10 20:36:1632.8 g/dLF29.6-35.3Hematocrit [Volume Fraction] of Blood by Automated vsifu7410-71-27 20:36:1645 %F41.0-53.0 Erythrocytes [#/volume] in Blood by Automated bjyow9386-86-16 20:36:164.78 x 10'6 cells/uLF4.6-6.2MCV [Entitic volume] by Automated gveci2425-19-47 20:36:16 94.1 fLF80.0-100.0Ferritin [Mass/volume] in Serum or Sgwhwl7134-94-02 03:26:3313 ng/mLF22.0-322.0Ferritin [Mass/volume] in Serum or Whtgef5377-23-93 03:26:3313 ng/mLF22.0-322.0Ferritin [Mass/volume] in Serum or Lznwrq6326-83-59 03:26:3313 ng/mLF22.0-322.0Ferritin [Mass/volume] in Serum or Hzerxp1708-81-96 03:26:3313 ng/mLF22.0-322.0IRON KTOQXEVMRG5927-58-14 06:40:2617 %F21.0-49.7WJOC4354-43-46 06:40:25020 ug/hLS120.0-425.0IRON NOLXMBXSSG8728-07-21 06:40:2617 %F21.0-49.0 BEYC7052-34-51 06:40:67319 ug/lIO287.0-425.5KNVO5349-15-85 06:40:94773 ug/dLF 250.0-425.0IRON BSIWKFCLFD6577-44-45 06:40:2617 %F21.0-49.0IRON SATURATION 2024-01-18 06:40:2617 %F21.0-49.6NUTU1418-76-15 06:40:33687 ug/wUX022.0-425.0 Iron [Mass/volume] in Serum or Kvgfta3871-10-48 06:31:0457 ug/dLF65.0-175.0Iron binding capacity.unsaturated [Mass/volume] in Serum or Pxktve8982-85-01 06:31:04 270 ug/dLF75.0-360.0Iron [Mass/volume] in Serum or Qwyztu1419-31-70 06:31:0457 ug/dLF65.0-175.0Iron binding capacity.unsaturated [Mass/volume] in Serum or Qtzkey5007-74-64 06:31:15560 ug/dLF75.0-360.0Iron [Mass/volume] in Serum or Ydzwfk6928-94-40 06:31:0457 ug/dLF65.0-175.0Iron binding capacity.unsaturated [Mass/volume] in Serum or Hsckcj3364-57-05 06:31:87550 ug/dLF75.0-360.0Iron [Mass/volume] in Serum or Kqvxid2772-50-41 06:31:0457 ug/dLF65.0-175.0Iron binding capacity.unsaturated [Mass/volume] in Serum or Efztds2472-41-95 06:31:04 270 ug/dLF75.0-360.0HCT CALC PPAG43753-77-24 02:00:0143.2 %F42.0-52.0HCT CALC RSIT49833-44-69 02:00:0143.2 %F42.0-52.0HCT CALC OYHJ07083-25-15 02:00:0143.2 %F 42.0-52.0HCT CALC WEMX66769-89-38 02:00:0143.2 %F42.0-52.0Erythrocyte distribution width [Ratio] by Automated yahns2180-72-70 01:59:1214.3 %F11.0-15.0 Hemoglobin [Mass/volume] in Hxrzs3762-34-14 01:59:1214.4 g/dLF14.0-18.0Platelets [#/volume] in Blood by Automated upcjv5421-55-86 01:59:25904 x 10^3 cells/uLF 140.0-450.0MCH [Entitic mass] by Automated ulqgm9443-65-67 01:59:1231.4 pgF 25.9-34.2MCHC [Mass/volume] by Automated pnsdm4632-03-56 01:59:1231.3 g/dLF 29.6-35.3Erythrocytes [#/volume] in Blood by Automated udmsf8174-82-51 01:59:12 4.59 x 10'6 cells/uLF4.6-6.2Hematocrit [Volume Fraction] of Blood by Automated nuyhz7214-79-29 01:59:1246.1 %F41.0-53.0MCV [Entitic volume] by Automated count 2024-01-18 01:59:54756.3 fLF80.0-100.0Erythrocyte distribution width [Ratio] by Automated rdarf0163-93-47 01:59:1214.3 %F11.0-15.0Erythrocytes [#/volume] in Blood by Automated wniiz8151-51-96 01:59:124.59 x 10'6 cells/uLF4.6-6.2 Hematocrit [Volume Fraction] of Blood by Automated ifxnb1828-38-87 01:59:1246.1 %F41.0-53.0Hemoglobin [Mass/volume] in Ypckd4340-20-03 01:59:1214.4 g/dLF 14.0-18.0Platelets [#/volume] in Blood by Automated iybfo0355-94-29 01:59:66847 x 10^3 cells/fIL403.0-450.0MCH [Entitic mass] by Automated skvnd4990-97-97 01:59:1231.4 pgF25.9-34.2MCHC [Mass/volume] by Automated uktie8406-94-84 01:59:1231.3 g/dLF29.6-35.3MCV [Entitic volume] by Automated qfrrj3637-41-10 01:59:05208.3 fLF80.0-100.0MCV [Entitic volume] by Automated vgdti8658-31-51 01:59:11418.3 fLF80.0-100.0MCH [Entitic mass] by Automated ceqzt7529-64-12 01:59:1231.4 pgF25.9-34.2MCHC [Mass/volume] by Automated ppqct3697-04-74 01:59:1231.3 g/dLF29.6-35.3Platelets [#/volume] in Blood by Automated count 2024-01-18 01:59:24213 x 10^3 cells/zGU659.0-450.0Erythrocyte distribution width [Ratio] by Automated uaftu5225-89-58 01:59:1214.3 %F11.0-15.0Erythrocyte distribution width [Ratio] by Automated qkisi3519-00-80 01:59:1214.3 %F11.0-15.0 Hemoglobin [Mass/volume] in Nszeo7468-89-04 01:59:1214.4 g/dLF14.0-18.0 Hematocrit [Volume Fraction] of Blood by Automated tvnim6982-54-96 01:59:1246.1 %F41.0-53.0Erythrocytes [#/volume] in Blood by Automated ldndi2692-75-00 01:59:124.59 x 10'6 cells/uLF4.6-6.2Hemoglobin [Mass/volume] in Edkqv8346-15-56 01:59:1214.4 g/dLF14.0-18.0Platelets [#/volume] in Blood by Automated count 2024-01-18 01:59:18067 x 10^3 cells/kFS691.0-450.0MCH [Entitic mass] by Automated bohgg1756-51-53 01:59:1231.4 pgF25.9-34.2MCHC [Mass/volume] by Automated mhtqv4892-23-32 01:59:1231.3 g/dLF29.6-35.3Erythrocytes [#/volume] in Blood by Automated imhrg1675-29-39 01:59:124.59 x 10'6 cells/uLF4.6-6.2 Hematocrit [Volume Fraction] of Blood by Automated yusgr7036-00-34 01:59:1246.1 %F41.0-53.0MCV [Entitic volume] by Automated dvoiy2235-58-20 01:59:50343.3 fLF 80.0-100.0HCT CALC QGUW89657-29-79 14:23:0543.2 %F42.0-52.0HCT CALC HGBX3 2023-12-13 14:23:0543.2 %F42.0-52.0Erythrocyte distribution width [Ratio] by Automated ihtwz0670-63-04 14:22:0615 %F11.0-15.0MCV [Entitic volume] by Automated vxanl4860-84-20 14:22:0699 fLF80.0-100.0Hemoglobin [Mass/volume] in Wbtjg2428-54-71 14:22:0614.4 g/dLF14.0-18.0Erythrocytes [#/volume] in Blood by Automated hunzn5594-59-29 14:22:064.39 x 10'6 cells/uLF4.6-6.2Hematocrit [Volume Fraction] of Blood by Automated fwkww4413-08-14 14:22:0643.5 %F41.0-53.0MCHC [Mass/volume] by Automated llxdn8858-84-51 14:22:0633.2 g/dLF29.6-35.3Platelets [#/volume] in Blood by Automated dzezp3760-02-07 14:22:51733 x 10^3 cells/uLF 140.0-450.0MCH [Entitic mass] by Automated turct9863-49-29 14:22:0632.9 pgF 25.9-34.2Erythrocyte distribution width [Ratio] by Automated otfrf7215-48-94 14:22:0615 %F11.0-15.0Hemoglobin [Mass/volume] in Vmlzw7909-74-97 14:22:0614.4 g/dLF14.0-18.0Platelets [#/volume] in Blood by Automated fikxb8428-81-34 14:22:98265 x 10^3 cells/lQC456.0-450.0MCH [Entitic mass] by Automated count 2023-12-13 14:22:0632.9 pgF25.9-34.2MCHC [Mass/volume] by Automated count 2023-12-13 14:22:0633.2 g/dLF29.6-35.3Hematocrit [Volume Fraction] of Blood by Automated jxehp6005-58-04 14:22:0643.5 %F41.0-53.0Erythrocytes [#/volume] in Blood by Automated zrnxu2207-35-86 14:22:064.39 x 10'6 cells/uLF4.6-6.2MCV [Entitic volume] by Automated zippc6823-96-85 14:22:0699 fLF80.0-100.0Ferritin [Mass/volume] in Serum or Smdemr5668-24-25 07:18:0112 ng/mLF22.0-322.0Ferritin [Mass/volume] in Serum or Uwdtjy2075-73-95 07:18:0112 ng/mLF22.0-322.0TIBC 2023-12-13 06:25:80782 ug/dNC953.0-425.0IRON TJDXBIDYDV5812-08-97 06:25:3218 %F 21.0-49.0IRON RJTZYAETQH0143-56-94 06:25:3218 %F21.0-49.7YBGA7757-73-48 06:25:32 326 ug/hFX907.0-425.0Iron binding capacity.unsaturated [Mass/volume] in Serum or Yzqnox7108-71-95 06:20:96154 ug/dLF75.0-360.0Iron [Mass/volume] in Serum or Hwjukt3778-31-74 06:20:4658 ug/dLF65.0-175.0Iron [Mass/volume] in Serum or Bidlaf1331-66-70 06:20:4658 ug/dLF65.0-175.0Iron binding capacity.unsaturated [Mass/volume] in Serum or Usbyne4652-39-37 06:20:14080 ug/dLF75.0-360.0IRON JEOIKVSIOH1429-05-64 06:51:1814 %F21.0-49.2JVYN2219-17-38 06:51:17620 ug/dLF 250.0-425.0IRON VEBWLJPFPB2579-89-62 06:51:1814 %F21.0-49.0XOVL2039-50-75 06:51:17142 ug/kNJ193.0-425.0Iron [Mass/volume] in Serum or Izcsbo5809-04-65 06:47:4545 ug/dLF65.0-175.0Iron binding capacity.unsaturated [Mass/volume] in Serum or Vuizcn5977-08-66 06:47:50569 ug/dLF75.0-360.0Iron [Mass/volume] in Serum or Trmhyg6967-66-87 06:47:4545 ug/dLF65.0-175.0Iron binding capacity.unsaturated [Mass/volume] in Serum or Ilinbi4536-77-56 06:47:48642 ug/dLF75.0-360.0Ferritin [Mass/volume] in Serum or Aqclfb6654-08-07 04:00:0310 ng/mLF22.0-322.0Ferritin [Mass/volume] in Serum or Ddugzd6389-23-75 04:00:0310 ng/mLF22.0-322.0HCT CALC DAOT61381-01-96 01:20:2245.9 %F42.0-52.0HCT CALC HGBX3 2023-11-15 01:20:2245.9 %F42.0-52.0Erythrocyte distribution width [Ratio] by Automated dgjwc3143-96-33 01:19:4716.1 %F11.0-15.0Hemoglobin [Mass/volume] in Vedcs7823-60-26 01:19:4715.3 g/dLF14.0-18.0Platelets [#/volume] in Blood by Automated nvbzm3088-64-67 01:19:22097 x 10^3 cells/zYU909.0-450.0MCH [Entitic mass] by Automated lvduq9749-65-16 01:19:4731.8 pgF25.9-34.2MCHC [Mass/volume] by Automated kqyvd7070-35-77 01:19:4732.1 g/dLF29.6-35.3Erythrocytes [#/volume] in Blood by Automated qcnpn1596-79-71 01:19:474.8 x 10'6 cells/uLF4.6-6.2 Hematocrit [Volume Fraction] of Blood by Automated tseso8569-45-83 01:19:4747.5 %F41.0-53.0MCV [Entitic volume] by Automated deozh6335-52-64 01:19:4799 fLF 80.0-100.0Erythrocyte distribution width [Ratio] by Automated qnyzg7454-26-53 01:19:4716.1 %F11.0-15.0Platelets [#/volume] in Blood by Automated count 2023-11-15 01:19:77294 x 10^3 cells/dLA501.0-450.0MCH [Entitic mass] by Automated tanzc3643-10-65 01:19:4731.8 pgF25.9-34.2Erythrocytes [#/volume] in Blood by Automated llffm8478-56-64 01:19:474.8 x 10'6 cells/uLF4.6-6.2MCHC [Mass/volume] by Automated lrpef7633-85-15 01:19:4732.1 g/dLF29.6-35.3Hematocrit [Volume Fraction] of Blood by Automated qddhr3251-30-79 01:19:4747.5 %F 41.0-53.0Hemoglobin [Mass/volume] in Dsrhp8224-21-99 01:19:4715.3 g/dLF14.0-18.0 MCV [Entitic volume] by Automated sulxn1123-20-28 01:19:4799 fLF80.0-100.0IRON HOEWRFVOGE9821-35-54 07:26:2824 %F21.0-49.5EAQL7631-06-67 07:26:67942 ug/dLF 250.0-425.0IRON NIAKWEFDBN3191-28-23 07:26:2824 %F21.0-49.5ZMXG4987-78-49 07:26:39407 ug/hZI874.0-425.0Iron binding capacity.unsaturated [Mass/volume] in Serum or Jomvvh2613-84-19 07:15:83542 ug/dLF75.0-360.0Iron [Mass/volume] in Serum or Fsoxda1707-00-41 07:15:5171 ug/dLF65.0-175.0Iron [Mass/volume] in Serum or Cwcloj4580-20-43 07:15:5171 ug/dLF65.0-175.0Iron binding capacity.unsaturated [Mass/volume] in Serum or Uyyhoe5143-32-90 07:15:27833 ug/dLF75.0-360.0Ferritin [Mass/volume] in Serum or Zuhclw6458-16-56 07:05:2726 ng/mLF22.0-322.0Ferritin [Mass/volume] in Serum or Pnncrf1517-85-70 07:05:2726 ng/mLF22.0-322.0HCT CALC VRYB44511-81-82 17:21:2147.7 %F42.0-52.0HCT CALC HGBX3 2023-10-12 17:21:2147.7 %F42.0-52.0Erythrocyte distribution width [Ratio] by Automated sugkl8443-32-92 17:20:3716.8 %F11.0-15.0Hemoglobin [Mass/volume] in Sfzbl0425-20-10 17:20:3715.9 g/dLF14.0-18.0Platelets [#/volume] in Blood by Automated wnysq9736-40-49 17:20:14861 x 10^3 cells/yEV764.0-450.0MCHC [Mass/volume] by Automated zitzg2068-56-62 17:20:3731.5 g/dLF29.6-35.3 Erythrocytes [#/volume] in Blood by Automated hupve6493-07-52 17:20:375.07 x 10'6 cells/uLF4.6-6.2Hematocrit [Volume Fraction] of Blood by Automated count 2023-10-12 17:20:3750.6 %F41.0-53.0MCH [Entitic mass] by Automated count 2023-10-12 17:20:3731.4 pgF25.9-34.2MCV [Entitic volume] by Automated count 2023-10-12 17:20:3799.8 fLF80.0-100.0Erythrocyte distribution width [Ratio] by Automated huomk2789-58-60 17:20:3716.8 %F11.0-15.0Hemoglobin [Mass/volume] in Hsfvf5547-39-88 17:20:3715.9 g/dLF14.0-18.0Platelets [#/volume] in Blood by Automated vjzqo9138-12-50 17:20:76006 x 10^3 cells/eNO820.0-450.0MCH [Entitic mass] by Automated htstk1262-33-79 17:20:3731.4 pgF25.9-34.2MCHC [Mass/volume] by Automated grcdk1083-19-40 17:20:3731.5 g/dLF29.6-35.3Erythrocytes [#/volume] in Blood by Automated cgruv9502-51-99 17:20:375.07 x 10'6 cells/uLF4.6-6.2 Hematocrit [Volume Fraction] of Blood by Automated gwdlv6635-64-48 17:20:3750.6 %F41.0-53.0MCV [Entitic volume] by Automated iuljg6242-17-92 17:20:3799.8 fLF 80.0-100.0HCT CALC BUJB21464-37-36 04:59:5447.4 %F42.0-52.0HCT CALC HGBX3 2023-09-13 04:59:5447.4 %F42.0-52.0Erythrocyte distribution width [Ratio] by Automated lkbch8179-49-40 04:58:2616.9 %F11.0-15.0Hemoglobin [Mass/volume] in Hksln4746-06-30 04:58:2615.8 g/dLF14.0-18.0Platelets [#/volume] in Blood by Automated xoeso2769-59-76 04:58:93175 x 10^3 cells/kHT378.0-450.0MCH [Entitic mass] by Automated wdglm9146-90-88 04:58:2630.9 pgF25.9-34.2MCHC [Mass/volume] by Automated yqzbh7792-24-70 04:58:2632 g/dLF29.6-35.3Erythrocytes [#/volume] in Blood by Automated njzvv9575-73-93 04:58:265.11 x 10'6 cells/uLF4.6-6.2 Hematocrit [Volume Fraction] of Blood by Automated bddud5611-62-10 04:58:2649.3 %F41.0-53.0MCV [Entitic volume] by Automated xhtfd7215-72-07 04:58:2696.5 fLF 80.0-100.0Erythrocyte distribution width [Ratio] by Automated vndim6781-77-24 04:58:2616.9 %F11.0-15.0Hemoglobin [Mass/volume] in Byklb6147-40-47 04:58:2615.8 g/dLF14.0-18.0Platelets [#/volume] in Blood by Automated lcqkj5924-11-36 04:58:88850 x 10^3 cells/iXK944.0-450.0MCH [Entitic mass] by Automated count 2023-09-13 04:58:2630.9 pgF25.9-34.2MCHC [Mass/volume] by Automated count 2023-09-13 04:58:2632 g/dLF29.6-35.3Erythrocytes [#/volume] in Blood by Automated oqite4026-51-70 04:58:265.11 x 10'6 cells/uLF4.6-6.2Hematocrit [Volume Fraction] of Blood by Automated klqsz1541-63-63 04:58:2649.3 %F41.0-53.0MCV [Entitic volume] by Automated myjjg6374-89-84 04:58:2696.5 fLF80.0-100.0HCT CALC GEXR06712-84-71 16:46:1045.9 %F42.0-52.0Erythrocyte distribution width [Ratio] by Automated fmfse2683-74-26 16:45:2116 %F11.0-15.0Hemoglobin [Mass/volume] in Mghrk2448-97-55 16:45:2115.3 g/dLF14.0-18.0Platelets [#/volume] in Blood by Automated ibqds3713-56-35 16:45:17005 x 10^3 cells/oTW080.0-450.0MCH [Entitic mass] by Automated zmjcr8056-79-95 16:45:2130.2 pgF25.9-34.2MCHC [Mass/volume] by Automated lkdtk8988-90-16 16:45:2133 g/dLF29.6-35.3Erythrocytes [#/volume] in Blood by Automated tdeng0041-31-96 16:45:215.06 x 10'6 cells/uLF4.6-6.2 Hematocrit [Volume Fraction] of Blood by Automated hdave0533-08-37 16:45:2146.4 %F41.0-53.0MCV [Entitic volume] by Automated jklig2244-00-92 16:45:2191.6 fLF 80.0-100.0HCT CALC HZTC09419-94-78 12:24:4043.8 %F42.0-52.0HCT CALC HGBX3 2023-07-12 12:24:4043.8 %F42.0-52.0Erythrocyte distribution width [Ratio] by Automated rknmw5799-11-36 12:24:3115.7 %F11.0-15.0Hemoglobin [Mass/volume] in Mfwoi7955-46-02 12:24:3114.6 g/dLF14.0-18.0Platelets [#/volume] in Blood by Automated rlmrb9708-27-86 12:24:25312 x 10^3 cells/yWT480.0-450.0MCH [Entitic mass] by Automated mhinp7974-19-11 12:24:3130.1 pgF25.9-34.2MCHC [Mass/volume] by Automated udruy2715-04-82 12:24:3131.6 g/dLF29.6-35.3Erythrocytes [#/volume] in Blood by Automated mxpoz1894-40-06 12:24:314.86 x 10'6 cells/uLF4.6-6.2 Hematocrit [Volume Fraction] of Blood by Automated ossrw4097-74-05 12:24:3146.3 %F41.0-53.0MCV [Entitic volume] by Automated tpygs2725-61-07 12:24:3195.1 fLF 80.0-100.0Erythrocyte distribution width [Ratio] by Automated whrjy8940-62-30 12:24:3115.7 %F11.0-15.0Platelets [#/volume] in Blood by Automated count 2023-07-12 12:24:74914 x 10^3 cells/aDA341.0-450.0Hemoglobin [Mass/volume] in Ljseu7697-19-88 12:24:3114.6 g/dLF14.0-18.0MCH [Entitic mass] by Automated count 2023-07-12 12:24:3130.1 pgF25.9-34.2MCHC [Mass/volume] by Automated count 2023-07-12 12:24:3131.6 g/dLF29.6-35.3Erythrocytes [#/volume] in Blood by Automated bqfxo7849-86-59 12:24:314.86 x 10'6 cells/uLF4.6-6.2Hematocrit [Volume Fraction] of Blood by Automated ywhvv7722-60-81 12:24:3146.3 %F41.0-53.0MCV [Entitic volume] by Automated dpdyk3845-29-16 12:24:3195.1 fLF80.0-100.0TIBC 2023-07-12 07:27:27244 ug/aWC600.0-425.0IRON LCXFCQRVIS0667-01-48 07:27:3016 %F 21.0-49.0IRON QOJAMMEVHC5428-40-86 07:27:3016 %F21.0-49.4JCMX4047-16-89 07:27:30 280 ug/oNP849.0-425.0Ferritin [Mass/volume] in Serum or Yeimkf5645-80-31 07:14:3314 ng/mLF22.0-322.0Ferritin [Mass/volume] in Serum or Wqsinz0310-25-27 07:14:3314 ng/mLF22.0-322.0Iron [Mass/volume] in Serum or Zmyldq3137-86-93 07:12:4044 ug/dLF65.0-175.0Iron binding capacity.unsaturated [Mass/volume] in Serum or Jhcgyc8121-21-52 07:12:74685 ug/dLF75.0-360.0Iron binding capacity.unsaturated [Mass/volume] in Serum or Ipypcf5575-51-41 07:12:08890 ug/dLF75.0-360.0Iron [Mass/volume] in Serum or Pcdqpw8349-41-70 07:12:4044 ug/dL F65.0-175.0Ferritin [Mass/volume] in Serum or Xhalwg0287-97-45 05:34:1317 ng/mLF 22.0-322.0Ferritin [Mass/volume] in Serum or Ptsqai2186-29-53 05:34:1317 ng/mLF 22.0-322.0Ferritin [Mass/volume] in Serum or Dlgexd3786-67-16 05:34:1317 ng/mLF 22.0-322.0HCT CALC ZHAX39887-19-76 14:49:4147.7 %F42.0-52.0HCT CALC HGBX3 2023-06-14 14:49:4147.7 %F42.0-52.0HCT CALC XSHJ08776-23-37 14:49:4147.7 %F 42.0-52.0MCH [Entitic mass] by Automated yxcjo0631-72-94 14:49:3529.9 pgF 25.9-34.2MCV [Entitic volume] by Automated aowfc5123-91-59 14:49:3595.1 fLF 80.0-100.0MCH [Entitic mass] by Automated jbutg0968-70-78 14:49:3529.9 pgF 25.9-34.2MCV [Entitic volume] by Automated htqpj8568-49-31 14:49:3595.1 fLF 80.0-100.0MCV [Entitic volume] by Automated axops8488-64-14 14:49:3595.1 fLF 80.0-100.0MCH [Entitic mass] by Automated wyscy1774-67-74 14:49:3529.9 pgF 25.9-34.2Erythrocyte distribution width [Ratio] by Automated mfizx7589-65-39 14:49:3315.6 %F11.0-15.0Hemoglobin [Mass/volume] in Dojjq9090-06-97 14:49:3315.9 g/dLF14.0-18.0Platelets [#/volume] in Blood by Automated pcrhv7380-05-29 14:49:02074 x 10^3 cells/dFW449.0-450.0MCHC [Mass/volume] by Automated count 2023-06-14 14:49:3331.5 g/dLF29.6-35.3Hematocrit [Volume Fraction] of Blood by Automated teljt9550-99-82 14:49:3350.6 %F41.0-53.0Erythrocytes [#/volume] in Blood by Automated znbql9912-49-11 14:49:335.32 x 10'6 cells/uLF4.6-6.2 Erythrocyte distribution width [Ratio] by Automated wokoj3689-70-08 14:49:3315.6 %F11.0-15.0Platelets [#/volume] in Blood by Automated ragmg9994-08-49 14:49:33 236 x 10^3 cells/rEQ540.0-450.0Erythrocytes [#/volume] in Blood by Automated nytgi2445-58-46 14:49:335.32 x 10'6 cells/uLF4.6-6.2Hemoglobin [Mass/volume] in Hylrj1368-37-87 14:49:3315.9 g/dLF14.0-18.0MCHC [Mass/volume] by Automated count 2023-06-14 14:49:3331.5 g/dLF29.6-35.3Hematocrit [Volume Fraction] of Blood by Automated grbjy8826-13-50 14:49:3350.6 %F41.0-53.0Erythrocyte distribution width [Ratio] by Automated onmtq2430-13-11 14:49:3315.6 %F11.0-15.0Erythrocytes [#/volume] in Blood by Automated yqpmj1290-46-72 14:49:335.32 x 10'6 cells/uLF 4.6-6.2Platelets [#/volume] in Blood by Automated mlivk2534-32-44 14:49:07204 x 10^3 cells/zFI790.0-450.0Hematocrit [Volume Fraction] of Blood by Automated nwpgl0643-71-77 14:49:3350.6 %F41.0-53.0Hemoglobin [Mass/volume] in Blood 2023-06-14 14:49:3315.9 g/dLF14.0-18.0MCHC [Mass/volume] by Automated count 2023-06-14 14:49:3331.5 g/dLF29.6-35.3IRON ODNPBYSNBT5692-15-78 06:56:0222 %F 21.0-49.6WMRT5082-25-63 06:56:88966 ug/mRK843.0-425.1SQDW2975-44-17 06:56:06609 ug/fNI610.0-425.0IRON XKODNIQNGS4902-25-04 06:56:0222 %F21.0-49.0IRON SATURATION 2023-06-14 06:56:0222 %F21.0-49.4DJRU8093-83-64 06:56:80071 ug/oNA116.0-425.0 Iron [Mass/volume] in Serum or Ukcbys6680-74-13 06:53:1965 ug/dLF65.0-175.0Iron binding capacity.unsaturated [Mass/volume] in Serum or Kjrfai8210-25-90 06:53:19 235 ug/dLF75.0-360.0Iron [Mass/volume] in Serum or Ucebiu5544-28-81 06:53:1965 ug/dLF65.0-175.0Iron binding capacity.unsaturated [Mass/volume] in Serum or Fsbjoz5930-10-70 06:53:21268 ug/dLF75.0-360.0Iron [Mass/volume] in Serum or Evtffk2002-32-54 06:53:1965 ug/dLF65.0-175.0Iron binding capacity.unsaturated [Mass/volume] in Serum or Vheubz5838-90-55 06:53:45148 ug/dLF75.0-360.0Ferritin [Mass/volume] in Serum or Qxkrsz9657-93-42 08:14:2738 ng/mLF22.0-322.0Ferritin [Mass/volume] in Serum or Nuvlps3414-13-01 08:14:2738 ng/mLF22.0-322.0IRON CCRRQTNKBA6576-91-78 07:27:2715 %F21.0-49.1ZTRM5125-64-19 07:27:96828 ug/dLF 250.0-425.0IRON XPTNGGNTKG4378-97-23 07:27:2715 %F21.0-49.2NGZO3758-95-28 07:27:57227 ug/jTA571.0-425.0Iron [Mass/volume] in Serum or Jaiyho2066-06-32 07:26:0943 ug/dLF65.0-175.0Iron binding capacity.unsaturated [Mass/volume] in Serum or Bzhqhy2596-25-13 07:26:89442 ug/dLF75.0-360.0Iron [Mass/volume] in Serum or Pbtvur1063-60-53 07:26:0943 ug/dLF65.0-175.0Iron binding capacity.unsaturated [Mass/volume] in Serum or Piiexk7524-23-51 07:26:53454 ug/dLF75.0-360.0HCT CALC PBVS27375-37-32 02:52:2546.2 %F42.0-52.0HCT CALC HGBX3 2023-05-17 02:52:2546.2 %F42.0-52.0Platelets [#/volume] in Blood by Automated xkjgx1479-44-91 02:52:79756 x 10^3 cells/jDB621.0-450.0MCH [Entitic mass] by Automated encpt1884-51-91 02:52:0130.5 pgF25.9-34.2MCV [Entitic volume] by Automated agelj7579-12-67 02:52:0193.4 fLF80.0-100.0Platelets [#/volume] in Blood by Automated sbbeh1744-98-19 02:52:40886 x 10^3 cells/nWP782.0-450.0MCH [Entitic mass] by Automated xgkcx2161-50-84 02:52:0130.5 pgF25.9-34.2MCV [Entitic volume] by Automated ewkrv0602-08-55 02:52:0193.4 fLF80.0-100.0 Erythrocyte distribution width [Ratio] by Automated mcrzp7923-46-71 02:51:5816.1 %F11.0-15.0Hemoglobin [Mass/volume] in Qakxl1170-12-19 02:51:5815.4 g/dLF 14.0-18.0MCHC [Mass/volume] by Automated tciik0813-25-90 02:51:5832.7 g/dLF 29.6-35.3Hematocrit [Volume Fraction] of Blood by Automated kxcsn1641-96-88 02:51:5847.2 %F41.0-53.0Erythrocytes [#/volume] in Blood by Automated count 2023-05-17 02:51:585.06 x 10'6 cells/uLF4.6-6.2Erythrocyte distribution width [Ratio] by Automated ztkoe7971-07-98 02:51:5816.1 %F11.0-15.0Hemoglobin [Mass/volume] in Qubjg3903-94-83 02:51:5815.4 g/dLF14.0-18.0MCHC [Mass/volume] by Automated unbfd3978-13-95 02:51:5832.7 g/dLF29.6-35.3Hematocrit [Volume Fraction] of Blood by Automated qdhnk0621-19-96 02:51:5847.2 %F41.0-53.0 Erythrocytes [#/volume] in Blood by Automated lxekh4888-34-08 02:51:585.06 x 10'6 cells/uLF4.6-6.2IRON JAMDMYDEIG6700-20-46 08:31:1210 %F21.0-49.0TIBC 2023-04-13 08:31:71681 ug/eNH840.0-425.0IRON KLZTTQGWYY7390-23-53 08:31:1210 %F 21.0-49.7XELJ9490-67-08 08:31:69855 ug/tTO742.0-425.0Iron [Mass/volume] in Serum or Gesueb2817-62-23 08:11:5229 ug/dLF65.0-175.0Iron binding capacity.unsaturated [Mass/volume] in Serum or Cnwakz0119-92-43 08:11:75890 ug/dLF75.0-360.0Iron [Mass/volume] in Serum or Gsbqfy1949-52-13 08:11:5229 ug/dL F65.0-175.0Iron binding capacity.unsaturated [Mass/volume] in Serum or Plasma 2023-04-13 08:11:90953 ug/dLF75.0-360.0Ferritin [Mass/volume] in Serum or Plasma 2023-04-13 05:07:3025 ng/mLF22.0-322.0Ferritin [Mass/volume] in Serum or Plasma 2023-04-13 05:07:3025 ng/mLF22.0-322.0HCT CALC FWPC28363-11-04 01:24:4645.6 %F 42.0-52.0HCT CALC ONBE59047-89-76 01:24:4645.6 %F42.0-52.0Erythrocyte distribution width [Ratio] by Automated igsim8659-41-43 01:24:2414.4 %F11.0-15.0 Hemoglobin [Mass/volume] in Wiyqn6422-39-94 01:24:2415.2 g/dLF14.0-18.0Platelets [#/volume] in Blood by Automated pqgnz6755-61-17 01:24:52914 x 10^3 cells/uLF 140.0-450.0MCH [Entitic mass] by Automated oxchn9931-32-09 01:24:2431.2 pgF 25.9-34.2MCHC [Mass/volume] by Automated cjbdr1029-63-03 01:24:2432.3 g/dLF 29.6-35.3Erythrocytes [#/volume] in Blood by Automated xcitp7698-74-85 01:24:24 4.88 x 10'6 cells/uLF4.6-6.2Hematocrit [Volume Fraction] of Blood by Automated eiegf8473-23-15 01:24:2447.1 %F41.0-53.0MCV [Entitic volume] by Automated count 2023-04-12 01:24:2496.6 fLF80.0-100.0Erythrocyte distribution width [Ratio] by Automated jvbol6040-62-00 01:24:2414.4 %F11.0-15.0Platelets [#/volume] in Blood by Automated yhutk9031-27-29 01:24:01047 x 10^3 cells/fQF164.0-450.0Hemoglobin [Mass/volume] in Efkmx0534-60-77 01:24:2415.2 g/dLF14.0-18.0MCH [Entitic mass] by Automated upumu9349-61-08 01:24:2431.2 pgF25.9-34.2MCHC [Mass/volume] by Automated hybph8534-25-13 01:24:2432.3 g/dLF29.6-35.3Erythrocytes [#/volume] in Blood by Automated qzsbn9317-05-36 01:24:244.88 x 10'6 cells/uLF4.6-6.2 Hematocrit [Volume Fraction] of Blood by Automated syxjm9701-13-25 01:24:2447.1 %F41.0-53.0MCV [Entitic volume] by Automated uksrf1290-93-62 01:24:2496.6 fLF 80.0-100.0IRON DENOPIWEJW4394-05-35 07:58:5011 %F21.0-49.7UAKX2614-10-40 07:58:99578 ug/jYD101.0-425.0HCT CALC UFLQ93896-22-33 07:58:5046.5 %F42.0-52.0 Iron binding capacity.unsaturated [Mass/volume] in Serum or Lceyso5094-35-15 07:53:29366 ug/dLF75.0-360.0Iron [Mass/volume] in Serum or Mvqsmp0056-75-04 07:53:5431 ug/dLF65.0-175.0Erythrocyte distribution width [Ratio] by Automated ewjfm0591-16-72 07:05:3014.2 %F11.0-15.0Hemoglobin [Mass/volume] in Blood 2023-03-15 07:05:3015.5 g/dLF14.0-18.0Platelets [#/volume] in Blood by Automated ljxut5120-45-45 07:05:70768 x 10^3 cells/kYS180.0-450.0MCH [Entitic mass] by Automated dvghn1568-20-98 07:05:3032 pgF25.9-34.2MCHC [Mass/volume] by Automated jspdz6234-96-07 07:05:3032.6 g/dLF29.6-35.3Erythrocytes [#/volume] in Blood by Automated pplrc0797-31-65 07:05:304.84 x 10'6 cells/uLF4.6-6.2Hematocrit [Volume Fraction] of Blood by Automated inmiz7263-99-21 07:05:3047.5 %F41.0-53.0MCV [Entitic volume] by Automated ixfsh0387-11-71 07:05:3098.1 fLF80.0-100.0Ferritin [Mass/volume] in Serum or Ipuimi5936-47-46 06:35:1938 ng/mLF22.0-322.0IRON NPHQEYSLTW3343-13-18 08:26:2730 %F21.0-49.6PICU7051-58-79 08:26:54642 ug/dLF 250.0-425.0IRON RSQFHQFZIS5118-74-68 08:26:2730 %F21.0-49.4STLN8261-85-46 08:26:61274 ug/mIC563.0-425.0IRON DSLOUASZNR7761-34-58 08:26:2730 %F21.0-49.0 WHVP3958-66-08 08:26:25679 ug/jKU381.0-425.0Iron [Mass/volume] in Serum or Ojsfpr7642-57-82 08:12:2889 ug/dLF65.0-175.0Iron binding capacity.unsaturated [Mass/volume] in Serum or Mbyuox5582-34-96 08:12:61496 ug/dLF75.0-360.0Iron [Mass/volume] in Serum or Bccann5268-86-53 08:12:2889 ug/dLF65.0-175.0Iron binding capacity.unsaturated [Mass/volume] in Serum or Sblpks6896-41-03 08:12:28 211 ug/dLF75.0-360.0Iron [Mass/volume] in Serum or Tudxzu2680-77-74 08:12:2889 ug/dLF65.0-175.0Iron binding capacity.unsaturated [Mass/volume] in Serum or Heltei7420-77-50 08:12:67395 ug/dLF75.0-360.0Ferritin [Mass/volume] in Serum or Cxnjss2538-11-89 05:25:2923 ng/mLF22.0-322.0Ferritin [Mass/volume] in Serum or Zzsica6812-69-79 05:25:2923 ng/mLF22.0-322.0Ferritin [Mass/volume] in Serum or Dgkkar6521-08-26 05:25:2923 ng/mLF22.0-322.0HCT CALC GALX29863-06-76 20:18:23 50.1 %F42.0-52.0HCT CALC KLYZ39193-18-64 20:18:2350.1 %F42.0-52.0HCT CALC HGBX3 2023-02-14 20:18:2350.1 %F42.0-52.0Erythrocyte distribution width [Ratio] by Automated wrhbr5011-72-51 20:17:2914.6 %F11.0-15.0Platelets [#/volume] in Blood by Automated ebaoc0625-09-97 20:17:50729 x 10^3 cells/jRV573.0-450.0Hemoglobin [Mass/volume] in Echph6287-06-68 20:17:2916.7 g/dLF14.0-18.0MCH [Entitic mass] by Automated xfiot4652-39-05 20:17:2933 pgF25.9-34.2MCHC [Mass/volume] by Automated kvkwf6672-04-18 20:17:2933.9 g/dLF29.6-35.3Erythrocytes [#/volume] in Blood by Automated zscoq3411-01-10 20:17:295.05 x 10'6 cells/uLF4.6-6.2 Hematocrit [Volume Fraction] of Blood by Automated pguxh1314-92-88 20:17:2949.2 %F41.0-53.0MCV [Entitic volume] by Automated yepea9442-03-28 20:17:2997.3 fLF 80.0-100.0Erythrocyte distribution width [Ratio] by Automated ydweu3552-99-59 20:17:2914.6 %F11.0-15.0Hemoglobin [Mass/volume] in Lftmi6309-89-74 20:17:2916.7 g/dLF14.0-18.0Platelets [#/volume] in Blood by Automated buika6532-31-84 20:17:64064 x 10^3 cells/xZO921.0-450.0MCH [Entitic mass] by Automated count 2023-02-14 20:17:2933 pgF25.9-34.2MCHC [Mass/volume] by Automated count 2023-02-14 20:17:2933.9 g/dLF29.6-35.3Erythrocytes [#/volume] in Blood by Automated ggzee9322-66-38 20:17:295.05 x 10'6 cells/uLF4.6-6.2Hematocrit [Volume Fraction] of Blood by Automated htkxk9608-46-22 20:17:2949.2 %F41.0-53.0MCV [Entitic volume] by Automated gomki3232-66-65 20:17:2997.3 fLF80.0-100.0MCH [Entitic mass] by Automated vaciv6117-17-52 20:17:2933 pgF25.9-34.2MCHC [Mass/volume] by Automated hqatg7206-43-77 20:17:2933.9 g/dLF29.6-35.3 Erythrocytes [#/volume] in Blood by Automated btprk1620-78-38 20:17:295.05 x 10'6 cells/uLF4.6-6.2Hematocrit [Volume Fraction] of Blood by Automated count 2023-02-14 20:17:2949.2 %F41.0-53.0Erythrocyte distribution width [Ratio] by Automated ahbrw0865-84-75 20:17:2914.6 %F11.0-15.0Platelets [#/volume] in Blood by Automated osnjj0634-53-53 20:17:88201 x 10^3 cells/bTA674.0-450.0Hemoglobin [Mass/volume] in Vewgn2444-86-07 20:17:2916.7 g/dLF14.0-18.0MCV [Entitic volume] by Automated kfilu2002-16-76 20:17:2997.3 fLF80.0-100.0HCT CALC RHDO89928-36-56 21:34:1250.4 %F42.0-52.0HCT CALC BYAY39791-11-49 21:34:1250.4 %F42.0-52.0MCH [Entitic mass] by Automated kdykf5071-12-76 21:33:2932.4 pgF25.9-34.2Erythrocyte distribution width [Ratio] by Automated jykpj9080-97-88 21:33:2914.9 %F11.0-15.0 Platelets [#/volume] in Blood by Automated llxdh0772-20-03 21:33:16550 x 10^3 cells/rQX125.0-450.0MCHC [Mass/volume] by Automated tbihd8115-14-76 21:33:2932.5 g/dLF29.6-35.3MCV [Entitic volume] by Automated cwlea8227-76-42 21:33:2999.5 fL F80.0-100.0Erythrocyte distribution width [Ratio] by Automated ghycx5629-33-75 21:33:2914.9 %F11.0-15.0Platelets [#/volume] in Blood by Automated count 2023-01-11 21:33:70714 x 10^3 cells/pEC016.0-450.0MCH [Entitic mass] by Automated ywyao4703-30-87 21:33:2932.4 pgF25.9-34.2MCHC [Mass/volume] by Automated rexhg3176-47-86 21:33:2932.5 g/dLF29.6-35.3MCV [Entitic volume] by Automated dpbex1330-36-43 21:33:2999.5 fLF80.0-100.0Hematocrit [Volume Fraction] of Blood by Automated olipo5706-77-93 21:33:2851.5 %F41.0-53.0Hemoglobin [Mass/volume] in Geflg3286-43-78 21:33:2816.8 g/dLF14.0-18.0Erythrocytes [#/volume] in Blood by Automated dsywj2702-80-40 21:33:285.18 x 10'6 cells/uLF 4.6-6.2Hemoglobin [Mass/volume] in Zvsht1403-72-75 21:33:2816.8 g/dLF14.0-18.0 Erythrocytes [#/volume] in Blood by Automated ixclc0619-76-75 21:33:285.18 x 10'6 cells/uLF4.6-6.2Hematocrit [Volume Fraction] of Blood by Automated count 2023-01-11 21:33:2851.5 %F41.0-53.0Ferritin [Mass/volume] in Serum or Plasma 2023-01-11 18:49:0422 ng/mLF22.0-322.0Ferritin [Mass/volume] in Serum or Plasma 2023-01-11 18:49:0422 ng/mLF22.0-322.0IRON TAZPDSAGUJ2176-09-02 17:36:3028 %F 21.0-49.4BOGF4990-61-62 17:36:90401 ug/yBV860.0-425.0IRON LVGUNIOMJY1100-60-05 17:36:3028 %F21.0-49.9EIAL1760-80-38 17:36:07704 ug/eZL241.0-425.0Iron binding capacity.unsaturated [Mass/volume] in Serum or Iciqxu2263-54-67 17:35:86657 ug/dLF75.0-360.0Iron [Mass/volume] in Serum or Mzmnqt2418-29-27 17:35:1285 ug/dL F65.0-175.0Iron [Mass/volume] in Serum or Jipwgo7720-67-12 17:35:1285 ug/dLF 65.0-175.0Iron binding capacity.unsaturated [Mass/volume] in Serum or Plasma 2023-01-11 17:35:80987 ug/dLF75.0-360.0IRON KCGGQCEFNL3564-17-52 07:26:3424 %F 21.0-49.4HIFA5013-04-12 07:26:84545 ug/gBI051.0-425.0Iron [Mass/volume] in Serum or Utqizv2867-45-52 07:23:2671 ug/dLF65.0-175.0Iron binding capacity.unsaturated [Mass/volume] in Serum or Ngrxhp7148-18-77 07:23:35096 ug/dLF75.0-360.0Ferritin [Mass/volume] in Serum or Spgdzp3967-47-33 07:13:4634 ng/mLF22.0-322.0HCT CALC PNJY99419-73-38 06:51:0945.9 %F42.0-52.0Erythrocyte distribution width [Ratio] by Automated cdkdk1723-83-23 06:50:3114.7 %F11.0-15.0 Hemoglobin [Mass/volume] in Gbznu4399-59-68 06:50:3115.3 g/dLF14.0-18.0Platelets [#/volume] in Blood by Automated mbsqx0876-22-38 06:50:05660 x 10^3 cells/uLF 140.0-450.0MCH [Entitic mass] by Automated cdklo2050-57-79 06:50:3132.4 pgF 25.9-34.2MCHC [Mass/volume] by Automated kuqji7310-94-74 06:50:3132.9 g/dLF 29.6-35.3Erythrocytes [#/volume] in Blood by Automated qnzqw5677-15-87 06:50:31 4.74 x 10'6 cells/uLF4.6-6.2Hematocrit [Volume Fraction] of Blood by Automated dxgwc8818-49-47 06:50:3146.6 %F41.0-53.0MCV [Entitic volume] by Automated count 2022-12-14 06:50:3198.5 fLF80.0-100.0HCT CALC GIUC83355-73-50 19:54:2442.9 %F 42.0-52.0HCT CALC GCLY34083-35-82 19:54:2442.9 %F42.0-52.0HCT CALC HGBX3 2022-11-15 19:54:2442.9 %F42.0-52.0Erythrocyte distribution width [Ratio] by Automated phrnm5233-73-82 19:53:3016.6 %F11.0-15.0Hemoglobin [Mass/volume] in Nueik1187-33-38 19:53:3014.3 g/dLF14.0-18.0Platelets [#/volume] in Blood by Automated wryhz8060-40-89 19:53:51271 x 10^3 cells/nEL670.0-450.0MCH [Entitic mass] by Automated jdmmm8685-37-84 19:53:3032.5 pgF25.9-34.2MCHC [Mass/volume] by Automated wkngt8676-21-26 19:53:3033 g/dLF29.6-35.3Erythrocytes [#/volume] in Blood by Automated jkczk2542-15-85 19:53:304.39 x 10'6 cells/uLF4.6-6.2 Hematocrit [Volume Fraction] of Blood by Automated atfek8997-77-71 19:53:3043.3 %F41.0-53.0MCV [Entitic volume] by Automated izjzm0691-02-83 19:53:3098.5 fLF 80.0-100.0Erythrocyte distribution width [Ratio] by Automated unqvf0707-55-80 19:53:3016.6 %F11.0-15.0Platelets [#/volume] in Blood by Automated count 2022-11-15 19:53:86983 x 10^3 cells/uPF281.0-450.0Hemoglobin [Mass/volume] in Jfmua7192-13-98 19:53:3014.3 g/dLF14.0-18.0Erythrocytes [#/volume] in Blood by Automated rrsaw2610-95-53 19:53:304.39 x 10'6 cells/uLF4.6-6.2MCV [Entitic volume] by Automated oteyp3410-37-61 19:53:3098.5 fLF80.0-100.0MCHC [Mass/volume] by Automated ruidk5579-71-29 19:53:3033 g/dLF29.6-35.3MCH [Entitic mass] by Automated tdeft3123-67-49 19:53:3032.5 pgF25.9-34.2Hematocrit [Volume Fraction] of Blood by Automated xtewc6158-16-81 19:53:3043.3 %F41.0-53.0 Erythrocytes [#/volume] in Blood by Automated jluge8682-99-02 19:53:304.39 x 10'6 cells/uLF4.6-6.2MCHC [Mass/volume] by Automated cfqqj9206-01-55 19:53:3033 g/dLF29.6-35.3Hematocrit [Volume Fraction] of Blood by Automated zbmet5095-74-73 19:53:3043.3 %F41.0-53.0Platelets [#/volume] in Blood by Automated count 2022-11-15 19:53:16768 x 10^3 cells/jEK918.0-450.0MCV [Entitic volume] by Automated chwfe4653-72-37 19:53:3098.5 fLF80.0-100.0Hemoglobin [Mass/volume] in Neiwx6645-19-29 19:53:3014.3 g/dLF14.0-18.0MCH [Entitic mass] by Automated count 2022-11-15 19:53:3032.5 pgF25.9-34.2Erythrocyte distribution width [Ratio] by Automated tmamz7990-37-20 19:53:3016.6 %F11.0-15.0IRON LNVJUNFMGU5005-66-73 17:33:5117 %F21.0-49.5OZAA5785-32-73 17:33:06802 ug/yBQ741.0-425.0IRON XBJYGGIJHF2773-74-93 17:33:5117 %F21.0-49.7MVPR5629-13-95 17:33:35137 ug/dLF 250.0-425.1EKCT0240-83-39 17:33:48633 ug/jNW887.0-425.0IRON DLGWAGOWQX9838-55-02 17:33:5117 %F21.0-49.0Iron [Mass/volume] in Serum or Rmanhn3454-53-65 17:32:19 47 ug/dLF65.0-175.0Iron binding capacity.unsaturated [Mass/volume] in Serum or Lmnaay4702-78-14 17:32:21101 ug/dLF75.0-360.0Iron [Mass/volume] in Serum or Xjkjhg5077-64-08 17:32:1947 ug/dLF65.0-175.0Iron binding capacity.unsaturated [Mass/volume] in Serum or Vxksdk7858-46-76 17:32:23212 ug/dLF75.0-360.0Iron [Mass/volume] in Serum or Fztkyv9667-54-50 17:32:1947 ug/dLF65.0-175.0Iron binding capacity.unsaturated [Mass/volume] in Serum or Vciyqm5889-71-50 17:32:19 228 ug/dLF75.0-360.0Ferritin [Mass/volume] in Serum or Wzqnzb0590-79-99 14:54:31 48 ng/mLF22.0-322.0Ferritin [Mass/volume] in Serum or Mzlqmc8144-59-46 14:54:31 48 ng/mLF22.0-322.0Ferritin [Mass/volume] in Serum or Ryrdol2579-14-53 14:54:31 48 ng/mLF22.0-322.0IRON QNWGEMPHDO5646-72-99 05:02:3618 %F21.0-49.0TIBC 2022-10-13 05:02:47520 ug/qNB565.0-425.0IRON DWBLLWPSUD8634-26-25 05:02:3618 %F 21.0-49.4NPAR7503-14-60 05:02:22406 ug/bVY108.0-425.0Iron [Mass/volume] in Serum or Asmnib8043-33-85 04:55:0650 ug/dLF65.0-175.0Iron binding capacity.unsaturated [Mass/volume] in Serum or Zgwipz0211-40-90 04:55:66835 ug/dLF75.0-360.0Iron [Mass/volume] in Serum or Lwlshw2063-17-51 04:55:0650 ug/dL F65.0-175.0Iron binding capacity.unsaturated [Mass/volume] in Serum or Plasma 2022-10-13 04:55:80906 ug/dLF75.0-360.0Ferritin [Mass/volume] in Serum or Plasma 2022-10-13 02:01:2132 ng/mLF22.0-322.0Ferritin [Mass/volume] in Serum or Plasma 2022-10-13 02:01:2132 ng/mLF22.0-322.0HCT CALC PAPV71958-81-84 21:33:5444.1 %F 42.0-52.0HCT CALC VDNW18171-38-50 21:33:5444.1 %F42.0-52.0MCH [Entitic mass] by Automated spzfd6157-03-03 21:33:4832 pgF25.9-34.2MCHC [Mass/volume] by Automated kmfbj1720-67-17 21:33:4833.6 g/dLF29.6-35.3MCH [Entitic mass] by Automated omnof8301-54-02 21:33:4832 pgF25.9-34.2MCHC [Mass/volume] by Automated count 2022-10-12 21:33:4833.6 g/dLF29.6-35.3Erythrocyte distribution width [Ratio] by Automated xlhij3399-61-97 21:33:4618.1 %F11.0-15.0Hemoglobin [Mass/volume] in Jzcgx9540-64-97 21:33:4614.7 g/dLF14.0-18.0Platelets [#/volume] in Blood by Automated xtyec6636-42-80 21:33:36716 x 10^3 cells/cVA256.0-450.0Erythrocytes [#/volume] in Blood by Automated kamps9833-29-74 21:33:464.58 x 10'6 cells/uLF 4.6-6.2Hematocrit [Volume Fraction] of Blood by Automated ejqlp9940-92-23 21:33:4643.7 %F41.0-53.0MCV [Entitic volume] by Automated bunit0834-36-14 21:33:4695.3 fLF80.0-100.0Platelets [#/volume] in Blood by Automated count 2022-10-12 21:33:76262 x 10^3 cells/wHQ133.0-450.0MCV [Entitic volume] by Automated adzcq9113-20-20 21:33:4695.3 fLF80.0-100.0Erythrocyte distribution width [Ratio] by Automated khvap9035-03-08 21:33:4618.1 %F11.0-15.0Hemoglobin [Mass/volume] in Hjwbe2138-31-49 21:33:4614.7 g/dLF14.0-18.0Erythrocytes [#/volume] in Blood by Automated fgluh1707-99-88 21:33:464.58 x 10'6 cells/uLF 4.6-6.2Hematocrit [Volume Fraction] of Blood by Automated mrvyh3151-03-34 21:33:4643.7 %F41.0-53.0IRON ETTLFGMOBR3900-51-08 04:25:5624 %F21.0-49.0TIBC 2022-09-16 04:25:38316 ug/nQV268.0-425.0IRON SWSCPWSPRL7810-92-47 04:25:5624 %F 21.0-49.1ABJC1522-64-33 04:25:90338 ug/hWJ140.0-425.0IRON OTACEOUZNX7285-06-94 04:25:5624 %F21.0-49.6DGOZ1038-00-26 04:25:96055 ug/kQH837.0-425.0Iron [Mass/volume] in Serum or Iiscdj0165-46-06 03:49:3967 ug/dLF65.0-175.0Iron binding capacity.unsaturated [Mass/volume] in Serum or Ohpixb0582-67-93 03:49:39 216 ug/dLF75.0-360.0Iron [Mass/volume] in Serum or Yjnzds2130-95-18 03:49:3967 ug/dLF65.0-175.0Iron binding capacity.unsaturated [Mass/volume] in Serum or Rjxsbg3731-40-74 03:49:87099 ug/dLF75.0-360.0Iron binding capacity.unsaturated [Mass/volume] in Serum or Bskwbj3080-27-60 03:49:41502 ug/dLF75.0-360.0Iron [Mass/volume] in Serum or Baurpz7545-95-36 03:49:3967 ug/dLF65.0-175.0HCT CALC FBMR11624-62-37 21:55:0042.3 %F42.0-52.0HCT CALC GWPD63789-54-43 21:55:0042.3 %F 42.0-52.0HCT CALC FGXU51750-55-23 21:55:0042.3 %F42.0-52.0Erythrocyte distribution width [Ratio] by Automated dgoap3664-16-09 21:54:1717.4 %F11.0-15.0 Platelets [#/volume] in Blood by Automated bgzxp0496-61-02 21:54:03445 x 10^3 cells/vKK708.0-450.0Hemoglobin [Mass/volume] in Mgtlv1272-52-42 21:54:1714.1 g/dLF14.0-18.0MCH [Entitic mass] by Automated xyxmq2975-85-43 21:54:1730.4 pgF 25.9-34.2MCHC [Mass/volume] by Automated meadw4914-49-96 21:54:1732.6 g/dLF 29.6-35.3Erythrocytes [#/volume] in Blood by Automated mfsdb2276-31-77 21:54:17 4.64 x 10'6 cells/uLF4.6-6.2Hematocrit [Volume Fraction] of Blood by Automated thumr3833-88-37 21:54:1743.2 %F41.0-53.0MCV [Entitic volume] by Automated count 2022-09-15 21:54:1793.2 fLF80.0-100.0Erythrocyte distribution width [Ratio] by Automated ahnph0661-59-86 21:54:1717.4 %F11.0-15.0Hemoglobin [Mass/volume] in Dbfjc4394-57-91 21:54:1714.1 g/dLF14.0-18.0Platelets [#/volume] in Blood by Automated tnagg8654-04-34 21:54:83285 x 10^3 cells/cMF756.0-450.0MCH [Entitic mass] by Automated ftxxx6882-64-87 21:54:1730.4 pgF25.9-34.2MCHC [Mass/volume] by Automated ctepi0456-27-42 21:54:1732.6 g/dLF29.6-35.3Erythrocytes [#/volume] in Blood by Automated rtiav5774-01-44 21:54:174.64 x 10'6 cells/uLF4.6-6.2 Hematocrit [Volume Fraction] of Blood by Automated igttp4213-00-83 21:54:1743.2 %F41.0-53.0MCV [Entitic volume] by Automated lnomh3105-65-64 21:54:1793.2 fLF 80.0-100.0Hemoglobin [Mass/volume] in Ercko2572-86-63 21:54:1714.1 g/dLF 14.0-18.0Hematocrit [Volume Fraction] of Blood by Automated vouwd6231-41-11 21:54:1743.2 %F41.0-53.0MCV [Entitic volume] by Automated ovxqz6950-58-03 21:54:1793.2 fLF80.0-100.0Platelets [#/volume] in Blood by Automated count 2022-09-15 21:54:17354 x 10^3 cells/bJG531.0-450.0Erythrocyte distribution width [Ratio] by Automated ufala5052-94-88 21:54:1717.4 %F11.0-15.0MCH [Entitic mass] by Automated suvun8754-86-24 21:54:1730.4 pgF25.9-34.2MCHC [Mass/volume] by Automated bnajb6183-88-99 21:54:1732.6 g/dLF29.6-35.3Erythrocytes [#/volume] in Blood by Automated iqbgg5563-61-43 21:54:174.64 x 10'6 cells/uLF4.6-6.2Ferritin [Mass/volume] in Serum or Snjroq4370-89-81 19:07:0989 ng/mLF22.0-322.0Ferritin [Mass/volume] in Serum or Sjhyjp8261-93-38 19:07:0989 ng/mLF22.0-322.0Ferritin [Mass/volume] in Serum or Skodwj6052-41-28 19:07:0989 ng/mLF22.0-322.0TIBC Ferritin [Mass/volume] in Serum or PlasmaIron [Mass/volume] in Serum or Plasma Iron binding capacity.unsaturated [Mass/volume] in Serum or PlasmaIRON SATURATIONIron binding capacity.unsaturated [Mass/volume] in Serum or PlasmaTIBC IRON SATURATIONFerritin [Mass/volume] in Serum or PlasmaIron [Mass/volume] in Serum or PlasmaFerritin [Mass/volume] in Serum or PlasmaTIBCIron binding capacity.unsaturated [Mass/volume] in Serum or PlasmaIRON SATURATIONIron [Mass/volume] in Serum or PlasmaComorbiditiesDescriptionDraw DateResult/Unit StatusRef RangeResult CommentsHemoglobin A1c/Hemoglobin.total in Bsfva3354-97-69 21:54:464.9 %A1cF0.0-5.6Hemoglobin A1c/Hemoglobin.total in Lvkuw6626-71-02 21:54:464.9 %A1cF0.0-5.6Hemoglobin A1c/Hemoglobin.total in Rqhqz9744-20-62 21:54:464.9 %A1cF0.0-5.6Hemoglobin A1c/Hemoglobin.total in Mvrxb9020-12-32 02:58:384.9 %A1cF0.0-5.6Hemoglobin A1c/Hemoglobin.total in Iihxh0629-24-76 02:58:384.9 %A1cF0.0-5.6Hemoglobin A1c/Hemoglobin.total in Dlcym8037-19-13 17:53:595.1 %A1cF0.0-5.6Hemoglobin A1c/Hemoglobin.total in Lfkwj7279-49-77 07:55:215.1 %A1cF0.0-5.6Hemoglobin A1c/Hemoglobin.total in Mgoiq1748-43-40 07:55:215.1 %A1cF0.0-5.6Hemoglobin A1c/Hemoglobin.total in Rokyz5883-06-32 01:13:495.1 %A1cF0.0-5.6Hemoglobin A1c/Hemoglobin.total in Atxth8684-44-94 01:13:495.1 %A1cF0.0-5.6Hemoglobin A1c/Hemoglobin.total in Eeilx1717-07-67 01:13:495.1 %A1cF0.0-5.6Hemoglobin A1c/Hemoglobin.total in Ouoma2922-39-68 22:38:584.9 %A1cF0.0-5.6Hemoglobin A1c/Hemoglobin.total in Zpwtk8086-11-51 22:38:584.9 %A1cF0.0-5.6Hemoglobin A1c/Hemoglobin.total in Nzode4251-29-62 22:38:584.9 %A1cF0.0-5.6FluidBPDescriptionDraw DateResult/UnitStatusRef Range Result CommentsSodium [Moles/volume] in Serum or Tmwkjb9315-38-78 08:18:87232 mEq/LF132.0-146.0Sodium [Moles/volume] in Serum or Wylomt7804-98-17 08:18:28164 mEq/LF132.0-146.0Sodium [Moles/volume] in Serum or Afkglt5762-83-19 08:07:77761 mEq/LF132.0-146.0Sodium [Moles/volume] in Serum or Yqfwuh4301-48-83 08:07:66509 mEq/LF132.0-146.0Sodium [Moles/volume] in Serum or Povbye3277-00-70 08:07:85419 mEq/LF132.0-146.0Sodium [Moles/volume] in Serum or Gcgppw9622-61-45 07:50:74712 mEq/LF132.0-146.0Sodium [Moles/volume] in Serum or Nqicrn6118-16-60 07:50:86691 mEq/LF132.0-146.0Sodium [Moles/volume] in Serum or Nmwtsc8667-00-43 07:50:29504 mEq/LF132.0-146.0Sodium [Moles/volume] in Serum or Kkhjtx9235-07-38 06:31:64502 mEq/LF132.0-146.0Sodium [Moles/volume] in Serum or Ovidmq8027-07-41 06:31:81710 mEq/LF132.0-146.0Sodium [Moles/volume] in Serum or Pmoznh7959-98-62 06:31:34739 mEq/LF132.0-146.0Sodium [Moles/volume] in Serum or Tbhdme7976-16-68 06:31:15704 mEq/LF132.0-146.0Sodium [Moles/volume] in Serum or Ooubjg4634-41-51 06:20:06744 mEq/LF132.0-146.0Sodium [Moles/volume] in Serum or Mwgvrc8212-99-23 06:20:48045 mEq/LF132.0-146.0Sodium [Moles/volume] in Serum or Nefxxl2421-06-31 06:47:83633 mEq/LF132.0-146.0Sodium [Moles/volume] in Serum or Zrsili4234-88-51 06:47:47315 mEq/LF132.0-146.0Sodium [Moles/volume] in Serum or Aptmkp3201-04-95 07:15:57353 mEq/LF132.0-146.0Sodium [Moles/volume] in Serum or Haorsk4267-26-73 07:15:15200 mEq/LF132.0-146.0Sodium [Moles/volume] in Serum or Wtymkt3124-91-60 07:13:44998 mEq/LF132.0-146.0Sodium [Moles/volume] in Serum or Nxxsyv9143-64-02 07:13:02420 mEq/LF132.0-146.0Sodium [Moles/volume] in Serum or Nedend1318-79-50 19:19:45873 mEq/LF132.0-146.0Sodium [Moles/volume] in Serum or Fvbnee7309-07-73 07:12:36972 mEq/LF132.0-146.0Sodium [Moles/volume] in Serum or Qebjiy9308-98-89 07:12:24434 mEq/LF132.0-146.0Sodium [Moles/volume] in Serum or Bigiav1193-23-44 06:53:11564 mEq/LF132.0-146.0Sodium [Moles/volume] in Serum or Grdbif9659-63-30 06:53:96262 mEq/LF132.0-146.0Sodium [Moles/volume] in Serum or Rkxran5398-70-43 06:53:27152 mEq/LF132.0-146.0Sodium [Moles/volume] in Serum or Wowitc0769-24-45 07:26:23500 mEq/LF132.0-146.0Sodium [Moles/volume] in Serum or Luueta6617-09-80 07:26:19410 mEq/LF132.0-146.0Sodium [Moles/volume] in Serum or Ceapma6518-10-17 08:11:02673 mEq/LF132.0-146.0Sodium [Moles/volume] in Serum or Xkrxzv8742-09-21 08:11:14829 mEq/LF132.0-146.0Sodium [Moles/volume] in Serum or Hrfcgj0657-88-65 07:53:37802 mEq/LF132.0-146.0Sodium [Moles/volume] in Serum or Xyjjik7607-61-25 00:16:84580 mEq/LF132.0-146.0Sodium [Moles/volume] in Serum or Irfkzb0137-97-75 00:16:12752 mEq/LF132.0-146.0Sodium [Moles/volume] in Serum or Ngrevm0619-63-73 00:16:00430 mEq/LF132.0-146.0Sodium [Moles/volume] in Serum or Lptugv1521-48-06 15:42:55838 mEq/LF132.0-146.0Sodium [Moles/volume] in Serum or Jnphyn4696-14-15 15:42:66343 mEq/LF132.0-146.0Sodium [Moles/volume] in Serum or Nmjnth1256-33-51 18:16:85359 mEq/LF132.0-146.0Sodium [Moles/volume] in Serum or Bqngyb8712-89-34 15:18:41650 mEq/LF132.0-146.0Sodium [Moles/volume] in Serum or Ohldxv9538-38-41 15:18:60063 mEq/LF132.0-146.0Sodium [Moles/volume] in Serum or Gmowgj1053-42-36 15:18:86656 mEq/LF132.0-146.0Sodium [Moles/volume] in Serum or Swjzmh9504-41-72 00:14:61384 mEq/LF132.0-146.0Sodium [Moles/volume] in Serum or Acunme0918-58-18 00:14:42422 mEq/LF132.0-146.0Sodium [Moles/volume] in Serum or Mcmymg4121-12-12 00:43:69830 mEq/LF132.0-146.0Sodium [Moles/volume] in Serum or Sttlko9110-50-95 00:43:72282 mEq/LF132.0-146.0Sodium [Moles/volume] in Serum or Conpgx9752-02-70 00:43:96884 mEq/LF132.0-146.0GeneralDescriptionDraw DateResult/UnitStatusRef RangeResult CommentsChloride [Moles/volume] in Serum or Lhqwra1259-31-94 08:18:32777 mEq/LF 99.0-109.0Chloride [Moles/volume] in Serum or Eqdmje3018-63-54 08:18:90431 mEq/L F99.0-109.0Aspartate aminotransferase [Enzymatic activity/volume] in Serum or Xxtzzn2857-87-24 17:54:2413 U/LF0.0-33.0Alanine aminotransferase [Enzymatic activity/volume] in Serum or Swzrdn8168-33-75 17:54:2411 U/LF10.0-49.0Aspartate aminotransferase [Enzymatic activity/volume] in Serum or Jlvvlx0973-22-45 17:54:2413 U/LF0.0-33.0Alanine aminotransferase [Enzymatic activity/volume] in Serum or Vbalyh9686-21-84 17:54:2411 U/LF10.0-49.0Chloride [Moles/volume] in Serum or Exsntj6711-03-41 08:07:02277 mEq/LF99.0-109.0Chloride [Moles/volume] in Serum or Txatfw7969-10-85 08:07:05887 mEq/LF99.0-109.0Chloride [Moles/volume] in Serum or Ghezyv1583-22-28 08:07:05849 mEq/LF99.0-109.0Aspartate aminotransferase [Enzymatic activity/volume] in Serum or Yikkry7474-17-36 00:20:1816 U/LF0.0-33.0Alanine aminotransferase [Enzymatic activity/volume] in Serum or Ydayik1212-00-71 00:20:1812 U/LF10.0-49.0Alanine aminotransferase [Enzymatic activity/volume] in Serum or Idwqsg0697-60-77 00:20:1812 U/LF 10.0-49.0Aspartate aminotransferase [Enzymatic activity/volume] in Serum or Pzfhdr2024-45-76 00:20:1816 U/LF0.0-33.0Aspartate aminotransferase [Enzymatic activity/volume] in Serum or Rjasam8003-95-03 00:20:1816 U/LF0.0-33.0Alanine aminotransferase [Enzymatic activity/volume] in Serum or Nbmcmh8780-22-14 00:20:1812 U/LF10.0-49.0Chloride [Moles/volume] in Serum or Cwdmio7802-29-26 07:50:50324 mEq/LF99.0-109.0Chloride [Moles/volume] in Serum or Mjqgad9787-58-09 07:50:93765 mEq/LF99.0-109.0Chloride [Moles/volume] in Serum or Plasma 2024-02-14 07:50:61863 mEq/LF99.0-109.0Aspartate aminotransferase [Enzymatic activity/volume] in Serum or Calxfu2655-49-49 23:58:2015 U/LF0.0-33.0Alanine aminotransferase [Enzymatic activity/volume] in Serum or Govrmz7551-68-27 23:58:2012 U/LF10.0-49.0Aspartate aminotransferase [Enzymatic activity/volume] in Serum or Jarupv4317-65-21 23:58:2014 U/LF0.0-33.0Alanine aminotransferase [Enzymatic activity/volume] in Serum or Oghzdt5481-82-26 23:58:2012 U/LF 10.0-49.0Aspartate aminotransferase [Enzymatic activity/volume] in Serum or Xamcfa4605-30-76 23:58:2014 U/LF0.0-33.0Alanine aminotransferase [Enzymatic activity/volume] in Serum or Gqiqpx8600-34-99 23:58:2012 U/LF10.0-49.0Chloride [Moles/volume] in Serum or Jndilt6706-73-42 06:31:63238 mEq/LF99.0-109.0Chloride [Moles/volume] in Serum or Tuorwg6851-99-61 06:31:66792 mEq/LF99.0-109.0 Chloride [Moles/volume] in Serum or Zohmrh8829-75-99 06:31:69641 mEq/LF 99.0-109.0Chloride [Moles/volume] in Serum or Mojsax0420-23-00 06:31:95453 mEq/L F99.0-109.0Aspartate aminotransferase [Enzymatic activity/volume] in Serum or Ieahpa0909-14-30 04:55:3216 U/LF0.0-33.0Alanine aminotransferase [Enzymatic activity/volume] in Serum or Dkqkuh9057-02-80 04:55:3216 U/LF10.0-49.0Alanine aminotransferase [Enzymatic activity/volume] in Serum or Omcjst5526-43-49 04:55:3216 U/LF10.0-49.0Aspartate aminotransferase [Enzymatic activity/volume] in Serum or Dlrokp4999-73-85 04:55:3216 U/LF0.0-33.0Alanine aminotransferase [Enzymatic activity/volume] in Serum or Jmfuht8509-00-62 04:55:3216 U/LF 10.0-49.0Aspartate aminotransferase [Enzymatic activity/volume] in Serum or Wqsinl0817-63-96 04:55:3216 U/LF0.0-33.0Aspartate aminotransferase [Enzymatic activity/volume] in Serum or Hrbcab6972-26-11 04:55:3216 U/LF0.0-33.0Alanine aminotransferase [Enzymatic activity/volume] in Serum or Dvrbew5576-72-11 04:55:3216 U/LF10.0-49.0Chloride [Moles/volume] in Serum or Wbvzzj9301-48-27 06:20:06811 mEq/LF99.0-109.0Chloride [Moles/volume] in Serum or Xmnwpp4673-52-80 06:20:07053 mEq/LF99.0-109.0Alanine aminotransferase [Enzymatic activity/volume] in Serum or Wntfof4577-44-86 23:07:1216 U/LF10.0-49.0Aspartate aminotransferase [Enzymatic activity/volume] in Serum or Rltwhc3744-19-27 23:07:1222 U/LF0.0-33.0Aspartate aminotransferase [Enzymatic activity/volume] in Serum or Rbuzqn5411-08-00 23:07:1222 U/LF0.0-33.0Alanine aminotransferase [Enzymatic activity/volume] in Serum or Zuwxpl0196-58-64 23:07:1216 U/LF 10.0-49.0Chloride [Moles/volume] in Serum or Gplceu0876-76-26 06:47:76201 mEq/LF 99.0-109.0Chloride [Moles/volume] in Serum or Geuymf3663-52-66 06:47:15076 mEq/L F99.0-109.0Aluminum [Mass/volume] in Serum or Cuywni9986-64-36 17:44:3510 ug/LF 0.0-9.0Aluminum [Mass/volume] in Serum or Puczeh5032-65-79 17:44:3510 ug/LF 0.0-9.0Aspartate aminotransferase [Enzymatic activity/volume] in Serum or Plasma 2023-11-14 15:57:4013 U/LF0.0-33.0Alanine aminotransferase [Enzymatic activity/volume] in Serum or Jmtuko6887-57-62 15:57:4012 U/LF10.0-49.0Aspartate aminotransferase [Enzymatic activity/volume] in Serum or Frvuft7751-56-15 15:57:4013 U/LF0.0-33.0Alanine aminotransferase [Enzymatic activity/volume] in Serum or Yudjhm4432-87-04 15:57:4012 U/LF10.0-49.0Chloride [Moles/volume] in Serum or Eghzjw3720-31-01 07:15:62295 mEq/LF99.0-109.0Chloride [Moles/volume] in Serum or Viiwrg8895-54-22 07:15:51573 mEq/LF99.0-109.0Alanine aminotransferase [Enzymatic activity/volume] in Serum or Ukqfcz9174-09-39 17:22:329 U/LF10.0-49.0 Aspartate aminotransferase [Enzymatic activity/volume] in Serum or Plasma 2023-10-12 17:22:329 U/LF0.0-33.0Aspartate aminotransferase [Enzymatic activity/volume] in Serum or Fllwwf2380-64-59 17:22:329 U/LF0.0-33.0Alanine aminotransferase [Enzymatic activity/volume] in Serum or Jbqunm5898-34-64 17:22:329 U/LF10.0-49.0Chloride [Moles/volume] in Serum or Pldqhy6826-15-01 07:13:38498 mEq/LF99.0-109.0Chloride [Moles/volume] in Serum or Mujbuy8539-94-40 07:13:36145 mEq/LF99.0-109.0Aspartate aminotransferase [Enzymatic activity/volume] in Serum or Gduzus6129-76-83 00:37:3810 U/LF0.0-33.0Alanine aminotransferase [Enzymatic activity/volume] in Serum or Sihctu0761-56-94 00:37:3811 U/LF10.0-49.0Aspartate aminotransferase [Enzymatic activity/volume] in Serum or Abyovr0196-78-68 00:37:3810 U/LF0.0-33.0Alanine aminotransferase [Enzymatic activity/volume] in Serum or Ahpdjd7917-10-71 00:37:3811 U/LF 10.0-49.0Chloride [Moles/volume] in Serum or Bpvmoy8294-38-97 19:19:46207 mEq/LF 99.0-109.0Aspartate aminotransferase [Enzymatic activity/volume] in Serum or Nvqgfr5358-90-82 16:33:3310 U/LF0.0-33.0Alanine aminotransferase [Enzymatic activity/volume] in Serum or Cxppfk0058-05-43 16:33:3310 U/LF10.0-49.0Chloride [Moles/volume] in Serum or Zoeizh0653-77-63 07:12:62226 mEq/LF99.0-109.0Chloride [Moles/volume] in Serum or Pbxpvz1570-61-96 07:12:67279 mEq/LF99.0-109.0 Aspartate aminotransferase [Enzymatic activity/volume] in Serum or Plasma 2023-07-12 01:57:3315 U/LF0.0-33.0Alanine aminotransferase [Enzymatic activity/volume] in Serum or Ihllxy0927-56-12 01:57:3317 U/LF10.0-49.0Aspartate aminotransferase [Enzymatic activity/volume] in Serum or Zfyinx4853-45-63 01:57:3315 U/LF0.0-33.0Alanine aminotransferase [Enzymatic activity/volume] in Serum or Smwhhy0623-34-32 01:57:3317 U/LF10.0-49.0Chloride [Moles/volume] in Serum or Zxihnn7570-03-50 06:53:56462 mEq/LF99.0-109.0Chloride [Moles/volume] in Serum or Ogggkr2321-49-38 06:53:49945 mEq/LF99.0-109.0Chloride [Moles/volume] in Serum or Xkqfbc1852-66-56 06:53:36157 mEq/LF99.0-109.0Aspartate aminotransferase [Enzymatic activity/volume] in Serum or Hdxomp2422-54-07 05:16:2912 U/LF0.0-33.0Alanine aminotransferase [Enzymatic activity/volume] in Serum or Diodux6370-91-74 05:16:2912 U/LF10.0-49.0Alanine aminotransferase [Enzymatic activity/volume] in Serum or Ssomeq0737-09-94 05:16:2912 U/LF 10.0-49.0Aspartate aminotransferase [Enzymatic activity/volume] in Serum or Wjphny5729-82-61 05:16:2912 U/LF0.0-33.0Alanine aminotransferase [Enzymatic activity/volume] in Serum or Bbphle5533-93-40 05:16:2912 U/LF10.0-49.0Aspartate aminotransferase [Enzymatic activity/volume] in Serum or Myrknf2574-70-30 05:16:2912 U/LF0.0-33.0Chloride [Moles/volume] in Serum or Blvdsl2183-49-90 07:26:98949 mEq/LF99.0-109.0Chloride [Moles/volume] in Serum or Fmsffa7707-16-53 07:26:03169 mEq/LF99.0-109.0Aspartate aminotransferase [Enzymatic activity/volume] in Serum or Wxyyhs9649-09-30 05:03:4613 U/LF0.0-33.0Alanine aminotransferase [Enzymatic activity/volume] in Serum or Smlozl8403-79-37 05:03:4613 U/LF10.0-49.0Aspartate aminotransferase [Enzymatic activity/volume] in Serum or Olrqbi8313-15-54 05:03:4613 U/LF0.0-33.0Alanine aminotransferase [Enzymatic activity/volume] in Serum or Oconoz5279-03-49 05:03:4613 U/LF 10.0-49.0Chloride [Moles/volume] in Serum or Sbjryd0113-48-39 08:11:31628 mEq/LF 99.0-109.0Chloride [Moles/volume] in Serum or Gdbnxb4672-29-15 08:11:18267 mEq/L F99.0-109.0Aspartate aminotransferase [Enzymatic activity/volume] in Serum or Fqufkt7310-61-11 21:40:3710 U/LF0.0-33.0Alanine aminotransferase [Enzymatic activity/volume] in Serum or Pgotbc5519-68-73 21:40:3711 U/LF10.0-49.0Aspartate aminotransferase [Enzymatic activity/volume] in Serum or Qockxr7665-89-44 21:40:3710 U/LF0.0-33.0Alanine aminotransferase [Enzymatic activity/volume] in Serum or Cbrbfn1103-11-30 21:40:3711 U/LF10.0-49.0Chloride [Moles/volume] in Serum or Uvcvsm4090-91-79 07:53:5099 mEq/LF99.0-109.0Aspartate aminotransferase [Enzymatic activity/volume] in Serum or Zjzcsz9397-60-55 22:39:3316 U/LF0.0-33.0 Alanine aminotransferase [Enzymatic activity/volume] in Serum or Plasma 2023-03-14 22:39:3312 U/LF10.0-49.0Aspartate aminotransferase [Enzymatic activity/volume] in Serum or Kubqad9191-07-49 00:16:3213 U/LF0.0-33.0Alanine aminotransferase [Enzymatic activity/volume] in Serum or Ywmjjx4828-89-64 00:16:3215 U/LF10.0-49.0Chloride [Moles/volume] in Serum or Jvfhvu5876-88-79 00:16:62080 mEq/LF99.0-109.0Aspartate aminotransferase [Enzymatic activity/volume] in Serum or Cjlehn9211-91-33 00:16:3213 U/LF0.0-33.0Alanine aminotransferase [Enzymatic activity/volume] in Serum or Tetffh1212-41-43 00:16:3215 U/LF10.0-49.0Chloride [Moles/volume] in Serum or Ntcuyf8529-21-84 00:16:75855 mEq/LF99.0-109.0Alanine aminotransferase [Enzymatic activity/volume] in Serum or Humffi3557-77-14 00:16:3215 U/LF10.0-49.0Aspartate aminotransferase [Enzymatic activity/volume] in Serum or Ulkmsz1447-72-68 00:16:3213 U/LF0.0-33.0 Chloride [Moles/volume] in Serum or Bxvpoy8021-77-37 00:16:51046 mEq/LF 99.0-109.0Aspartate aminotransferase [Enzymatic activity/volume] in Serum or Zfmkpy5529-73-76 15:42:3714 U/LF0.0-33.0Alanine aminotransferase [Enzymatic activity/volume] in Serum or Izvfpl6411-63-14 15:42:3714 U/LF10.0-49.0Chloride [Moles/volume] in Serum or Lswynb2761-55-28 15:42:24868 mEq/LF99.0-109.0 Aspartate aminotransferase [Enzymatic activity/volume] in Serum or Plasma 2023-01-11 15:42:3714 U/LF0.0-33.0Alanine aminotransferase [Enzymatic activity/volume] in Serum or Gnihek5730-02-91 15:42:3714 U/LF10.0-49.0Chloride [Moles/volume] in Serum or Xbwvhk6404-44-42 15:42:79651 mEq/LF99.0-109.0 Aspartate aminotransferase [Enzymatic activity/volume] in Serum or Plasma 2022-12-13 18:16:4212 U/LF0.0-33.0Chloride [Moles/volume] in Serum or Plasma 2022-12-13 18:16:62798 mEq/LF99.0-109.0Alanine aminotransferase [Enzymatic activity/volume] in Serum or Qcyewb0137-06-13 18:16:4011 U/LF10.0-49.0Aluminum [Mass/volume] in Serum or Jqnnws2815-91-88 16:43:4610 ug/LF0.0-9.0Aluminum [Mass/volume] in Serum or Idzabv6401-59-11 16:43:4610 ug/LF0.0-9.0Aluminum [Mass/volume] in Serum or Rcunsr2704-64-56 16:43:4610 ug/LF0.0-9.0Aspartate aminotransferase [Enzymatic activity/volume] in Serum or Pkwrft8848-86-99 15:18:3112 U/LF0.0-33.0Alanine aminotransferase [Enzymatic activity/volume] in Serum or Aypfwf5104-53-80 15:18:3110 U/LF10.0-49.0Chloride [Moles/volume] in Serum or Qwghsj3025-08-05 15:18:82288 mEq/LF99.0-109.0Alanine aminotransferase [Enzymatic activity/volume] in Serum or Icctnf0241-65-79 15:18:3110 U/LF 10.0-49.0Aspartate aminotransferase [Enzymatic activity/volume] in Serum or Xdgchz8437-75-15 15:18:3112 U/LF0.0-33.0Chloride [Moles/volume] in Serum or Owfuvu7733-64-02 15:18:14657 mEq/LF99.0-109.0Chloride [Moles/volume] in Serum or Cewomk6052-28-06 15:18:39063 mEq/LF99.0-109.0Alanine aminotransferase [Enzymatic activity/volume] in Serum or Jbieet9846-75-59 15:18:3110 U/LF 10.0-49.0Aspartate aminotransferase [Enzymatic activity/volume] in Serum or Ntmwic1205-33-03 15:18:3112 U/LF0.0-33.0Aspartate aminotransferase [Enzymatic activity/volume] in Serum or Qkuyki2515-88-84 00:14:2613 U/LF0.0-33.0Alanine aminotransferase [Enzymatic activity/volume] in Serum or Thqnij5419-40-56 00:14:2612 U/LF10.0-49.0Chloride [Moles/volume] in Serum or Qopqfo5155-57-78 00:14:69110 mEq/LF99.0-109.0Alanine aminotransferase [Enzymatic activity/volume] in Serum or Jefkox5057-08-96 00:14:2612 U/LF10.0-49.0Chloride [Moles/volume] in Serum or Ldvudp0980-54-20 00:14:04865 mEq/LF99.0-109.0Aspartate aminotransferase [Enzymatic activity/volume] in Serum or Ddlvgf9163-46-47 00:14:2613 U/LF 0.0-33.0Aspartate aminotransferase [Enzymatic activity/volume] in Serum or Yhksmg7266-72-44 00:43:1616 U/LF0.0-33.0Alanine aminotransferase [Enzymatic activity/volume] in Serum or Kxuljj8281-77-31 00:43:1627 U/LF10.0-49.0Chloride [Moles/volume] in Serum or Teprvo5576-39-10 00:43:39213 mEq/LF99.0-109.0 Aspartate aminotransferase [Enzymatic activity/volume] in Serum or Plasma 2022-09-16 00:43:1616 U/LF0.0-33.0Alanine aminotransferase [Enzymatic activity/volume] in Serum or Nlqyun6476-18-76 00:43:1627 U/LF10.0-49.0Chloride [Moles/volume] in Serum or Sbhbaz1225-09-41 00:43:96580 mEq/LF99.0-109.0 Aspartate aminotransferase [Enzymatic activity/volume] in Serum or Plasma 2022-09-16 00:43:1616 U/LF0.0-33.0Alanine aminotransferase [Enzymatic activity/volume] in Serum or Mulaxz6174-70-00 00:43:1627 U/LF10.0-49.0Chloride [Moles/volume] in Serum or Uvdzhp0994-63-29 00:43:54049 mEq/LF99.0-109.0 InfectionVaccinationDescriptionDraw DateResult/UnitStatusRef RangeResult CommentsMonocytes/100 leukocytes in Blood by Automated pgmjn4302-42-88 19:18:54F RECOLLECT - OUTDATED SPECIMENNeutrophils/100 leukocytes in Blood by Automated tpsci8240-31-14 19:18:54FRECOLLECT - OUTDATED SPECIMENLymphocytes/100 leukocytes in Blood by Automated mxqve6605-23-95 19:18:54FRECOLLECT - OUTDATED SPECIMEN Monocytes [#/volume] in Blood by Automated zwflo5874-71-68 19:18:54FRECOLLECT - OUTDATED SPECIMENBasophils [#/volume] in Blood by Automated njjzv3802-76-16 19:18:54FRECOLLECT - OUTDATED SPECIMENNeutrophils [#/volume] in Blood by Automated lghfw4107-98-65 19:18:54FRECOLLECT - OUTDATED SPECIMENLeukocytes [#/volume] in Blood by Automated haisr4489-06-71 19:18:54FRECOLLECT - OUTDATED SPECIMENLymphocytes [#/volume] in Blood by Automated urnsb9156-51-40 19:18:54F RECOLLECT - OUTDATED SPECIMENEosinophils/100 leukocytes in Blood by Automated sxobf3653-01-77 19:18:54FRECOLLECT - OUTDATED SPECIMENEosinophils [#/volume] in Blood by Automated fgolf0915-66-41 19:18:54FRECOLLECT - OUTDATED SPECIMEN Basophils/100 leukocytes in Blood by Automated mpxqo1979-42-01 19:18:54F RECOLLECT - OUTDATED SPECIMENLymphocytes/100 leukocytes in Blood by Automated gojqd3561-81-03 19:18:54FRECOLLECT - OUTDATED SPECIMENMonocytes [#/volume] in Blood by Automated wriog3865-79-18 19:18:54FRECOLLECT - OUTDATED SPECIMEN Lymphocytes [#/volume] in Blood by Automated giixh5054-16-16 19:18:54FRECOLLECT - OUTDATED SPECIMENNeutrophils [#/volume] in Blood by Automated dazas8624-45-47 19:18:54FRECOLLECT - OUTDATED SPECIMENBasophils [#/volume] in Blood by Automated nketv2942-21-22 19:18:54FRECOLLECT - OUTDATED SPECIMENEosinophils [#/volume] in Blood by Automated odvnu5078-58-07 19:18:54FRECOLLECT - OUTDATED SPECIMEN Basophils/100 leukocytes in Blood by Automated iaezy7885-02-21 19:18:54F RECOLLECT - OUTDATED SPECIMENEosinophils/100 leukocytes in Blood by Automated hvkww4246-96-37 19:18:54FRECOLLECT - OUTDATED SPECIMENNeutrophils/100 leukocytes in Blood by Automated phkav3689-11-36 19:18:54FRECOLLECT - OUTDATED SPECIMEN Monocytes/100 leukocytes in Blood by Automated djiiq3319-67-45 19:18:54F RECOLLECT - OUTDATED SPECIMENLeukocytes [#/volume] in Blood by Automated count 2024-04-18 19:18:54FRECOLLECT - OUTDATED SPECIMENBasophils [#/volume] in Blood by Automated bimro4389-31-30 15:29:20FRECOLLECT - OUTDATED SPECIMENLymphocytes [#/volume] in Blood by Automated fdjcy5396-73-52 15:29:20FRECOLLECT - OUTDATED SPECIMENNeutrophils/100 leukocytes in Blood by Automated inkrm9477-73-72 15:29:20FRECOLLECT - OUTDATED SPECIMENEosinophils/100 leukocytes in Blood by Automated xdosn0081-69-56 15:29:20FRECOLLECT - OUTDATED SPECIMENLymphocytes/100 leukocytes in Blood by Automated airxe5659-06-53 15:29:20FRECOLLECT - OUTDATED SPECIMENMonocytes/100 leukocytes in Blood by Automated llxjk1946-49-98 15:29:20F RECOLLECT - OUTDATED SPECIMENNeutrophils [#/volume] in Blood by Automated count 2024-03-14 15:29:20FRECOLLECT - OUTDATED SPECIMENEosinophils [#/volume] in Blood by Automated zhhni4532-73-97 15:29:20FRECOLLECT - OUTDATED SPECIMENLeukocytes [#/volume] in Blood by Automated tqrze2241-00-29 15:29:20FRECOLLECT - OUTDATED SPECIMENMonocytes [#/volume] in Blood by Automated rblkd7328-18-09 15:29:20F RECOLLECT - OUTDATED SPECIMENBasophils/100 leukocytes in Blood by Automated todpt1519-83-30 15:29:20FRECOLLECT - OUTDATED SPECIMENLymphocytes/100 leukocytes in Blood by Automated bpkfm7830-30-80 15:29:20FRECOLLECT - OUTDATED SPECIMEN Neutrophils/100 leukocytes in Blood by Automated jsagw5707-51-04 15:29:20F RECOLLECT - OUTDATED SPECIMENMonocytes [#/volume] in Blood by Automated count 2024-03-14 15:29:20FRECOLLECT - OUTDATED SPECIMENBasophils [#/volume] in Blood by Automated peime2700-25-56 15:29:20FRECOLLECT - OUTDATED SPECIMENBasophils/100 leukocytes in Blood by Automated baqeo0751-89-21 15:29:20FRECOLLECT - OUTDATED SPECIMENEosinophils/100 leukocytes in Blood by Automated zucbv6723-33-09 15:29:20FRECOLLECT - OUTDATED SPECIMENNeutrophils [#/volume] in Blood by Automated edyla5429-66-42 15:29:20FRECOLLECT - OUTDATED SPECIMENMonocytes/100 leukocytes in Blood by Automated tsrea5217-00-26 15:29:20FRECOLLECT - OUTDATED SPECIMENLeukocytes [#/volume] in Blood by Automated eufgp5579-49-16 15:29:20F RECOLLECT - OUTDATED SPECIMENLymphocytes [#/volume] in Blood by Automated count 2024-03-14 15:29:20FRECOLLECT - OUTDATED SPECIMENEosinophils [#/volume] in Blood by Automated rhbqh0427-42-73 15:29:20FRECOLLECT - OUTDATED SPECIMEN Neutrophils/100 leukocytes in Blood by Automated fijwm0881-53-53 15:29:20F RECOLLECT - OUTDATED SPECIMENMonocytes [#/volume] in Blood by Automated count 2024-03-14 15:29:20FRECOLLECT - OUTDATED SPECIMENLymphocytes/100 leukocytes in Blood by Automated qlwbq6821-02-90 15:29:20FRECOLLECT - OUTDATED SPECIMEN Monocytes/100 leukocytes in Blood by Automated hywcj4711-10-66 15:29:20F RECOLLECT - OUTDATED SPECIMENNeutrophils [#/volume] in Blood by Automated count 2024-03-14 15:29:20FRECOLLECT - OUTDATED SPECIMENLymphocytes [#/volume] in Blood by Automated kwfaf8747-36-92 15:29:20FRECOLLECT - OUTDATED SPECIMENEosinophils [#/volume] in Blood by Automated neywt4621-63-37 15:29:20FRECOLLECT - OUTDATED SPECIMENBasophils [#/volume] in Blood by Automated qexkw5594-85-43 15:29:20F RECOLLECT - OUTDATED SPECIMENLeukocytes [#/volume] in Blood by Automated count 2024-03-14 15:29:20FRECOLLECT - OUTDATED SPECIMENBasophils/100 leukocytes in Blood by Automated mvkgs8911-41-78 15:29:20FRECOLLECT - OUTDATED SPECIMEN Eosinophils/100 leukocytes in Blood by Automated yxepu1204-01-59 15:29:20F RECOLLECT - OUTDATED SPECIMENLymphocytes/100 leukocytes in Blood by Automated lgmvq0675-38-35 20:36:1626.1 %FNeutrophils/100 leukocytes in Blood by Automated evhrf1864-79-92 20:36:1661.1 %FMonocytes/100 leukocytes in Blood by Automated wqsrr3365-51-38 20:36:168.3 %FEosinophils/100 leukocytes in Blood by Automated ptahz9714-41-20 20:36:164.3 %FBasophils/100 leukocytes in Blood by Automated cywzz2123-06-28 20:36:160.2 %FMonocytes [#/volume] in Blood by Automated count 2024-02-13 20:36:74364 Cells/uLF0.0-1100.0Eosinophils [#/volume] in Blood by Automated jcgue5291-48-82 20:36:77268 Cells/uLF0.0-700.0Basophils [#/volume] in Blood by Automated cgzlt5610-28-50 20:36:1612 Cells/uLF0.0-400.0Neutrophils [#/volume] in Blood by Automated bvmfx8864-93-60 20:36:391408 Cells/uLF 2000.0-8800.0Leukocytes [#/volume] in Blood by Automated kuuuk3824-37-83 20:36:165.9 x 10^3 cells/uLF4.0-11.0Lymphocytes [#/volume] in Blood by Automated wmixc3094-35-95 20:36:834901 Cells/uLQ234.0-3660.0Monocytes/100 leukocytes in Blood by Automated cdono0239-93-78 20:36:168.3 %FNeutrophils/100 leukocytes in Blood by Automated lmvod7999-72-18 20:36:1661.1 %FBasophils/100 leukocytes in Blood by Automated cbqwh0982-95-14 20:36:160.2 %FEosinophils/100 leukocytes in Blood by Automated cruuk7309-12-84 20:36:164.3 %FBasophils [#/volume] in Blood by Automated dqise0171-78-19 20:36:1612 Cells/uLF0.0-400.0Eosinophils [#/volume] in Blood by Automated huuul4672-92-84 20:36:09737 Cells/uLF0.0-700.0Lymphocytes [#/volume] in Blood by Automated slgmz5735-18-01 20:36:678001 Cells/uLF 620.0-3660.0Lymphocytes/100 leukocytes in Blood by Automated nwhvh3083-64-38 20:36:1626.1 %FMonocytes [#/volume] in Blood by Automated onccu5027-04-35 20:36:10147 Cells/uLF0.0-1100.0Neutrophils [#/volume] in Blood by Automated wndrw7812-84-87 20:36:937774 Cells/fWV1160.0-8800.0Leukocytes [#/volume] in Blood by Automated wcygv9504-33-12 20:36:165.9 x 10^3 cells/uLF4.0-11.0 Lymphocytes/100 leukocytes in Blood by Automated nivjy1456-69-37 20:36:1626.1 %F Neutrophils/100 leukocytes in Blood by Automated xuamo8489-84-17 20:36:1661.1 %F Monocytes/100 leukocytes in Blood by Automated lnolp4762-58-95 20:36:168.3 %F Eosinophils/100 leukocytes in Blood by Automated yrbyz4828-25-13 20:36:164.3 %F Basophils/100 leukocytes in Blood by Automated vvccp8536-02-01 20:36:160.2 %F Basophils [#/volume] in Blood by Automated tdvap3723-04-21 20:36:1612 Cells/uLF 0.0-400.0Eosinophils [#/volume] in Blood by Automated tzzjb1476-61-17 20:36:16 255 Cells/uLF0.0-700.0Monocytes [#/volume] in Blood by Automated vskpe2330-35-95 20:36:31385 Cells/uLF0.0-1100.0Neutrophils [#/volume] in Blood by Automated amwwk9518-67-28 20:36:806927 Cells/ySG3259.0-8800.0Leukocytes [#/volume] in Blood by Automated grrhn4083-19-35 20:36:165.9 x 10^3 cells/uLF4.0-11.0 Lymphocytes [#/volume] in Blood by Automated ggydu3837-88-17 20:36:134410 Cells/tHS938.0-3660.0Lymphocytes/100 leukocytes in Blood by Automated count 2024-01-18 01:59:1225.8 %FMonocytes/100 leukocytes in Blood by Automated count 2024-01-18 01:59:127.8 %FEosinophils/100 leukocytes in Blood by Automated count 2024-01-18 01:59:123.9 %FBasophils/100 leukocytes in Blood by Automated count 2024-01-18 01:59:120.5 %FNeutrophils/100 leukocytes in Blood by Automated count 2024-01-18 01:59:1261.9 %FMonocytes [#/volume] in Blood by Automated count 2024-01-18 01:59:80776 Cell/uLF0.0-1100.0Basophils [#/volume] in Blood by Automated ricwh5855-48-77 01:59:1227 Cell/uLF0.0-400.0Eosinophils [#/volume] in Blood by Automated uclff8524-89-00 01:59:36413 Cell/uLF0.0-700.0Neutrophils [#/volume] in Blood by Automated dtpcg1117-79-05 01:59:683302 Cell/uLF 2000.0-8800.0Leukocytes [#/volume] in Blood by Automated zuwpf4756-30-33 01:59:125.5 x 10^3 cells/uLF4.0-11.0Lymphocytes [#/volume] in Blood by Automated dwmms1915-89-22 01:59:543579 Cell/kXV368.0-3660.0Neutrophils/100 leukocytes in Blood by Automated ximkk5244-27-38 01:59:1261.9 %FMonocytes/100 leukocytes in Blood by Automated okdup9761-29-92 01:59:127.8 %FLymphocytes/100 leukocytes in Blood by Automated aquwz8115-82-59 01:59:1225.8 %FBasophils [#/volume] in Blood by Automated ixcuh9986-65-45 01:59:1227 Cell/uLF0.0-400.0Eosinophils [#/volume] in Blood by Automated gdelw7702-45-07 01:59:29923 Cell/uLF0.0-700.0 Eosinophils/100 leukocytes in Blood by Automated fybhx7916-59-07 01:59:123.9 %F Basophils/100 leukocytes in Blood by Automated yczmc3948-62-73 01:59:120.5 %F Monocytes [#/volume] in Blood by Automated tltog4015-25-90 01:59:86154 Cell/uLF 0.0-1100.0Neutrophils [#/volume] in Blood by Automated npxym7346-92-77 01:59:12 3398 Cell/tTJ4322.0-8800.0Leukocytes [#/volume] in Blood by Automated count 2024-01-18 01:59:125.5 x 10^3 cells/uLF4.0-11.0Lymphocytes [#/volume] in Blood by Automated exqzt7509-07-87 01:59:074122 Cell/oXI815.0-3660.0Lymphocytes/100 leukocytes in Blood by Automated uhrny0296-67-67 01:59:1225.8 %FNeutrophils/100 leukocytes in Blood by Automated sunwx9872-34-47 01:59:1261.9 %FBasophils/100 leukocytes in Blood by Automated bitax9139-33-34 01:59:120.5 %FMonocytes/100 leukocytes in Blood by Automated ezoue8235-01-95 01:59:127.8 %FEosinophils/100 leukocytes in Blood by Automated epfck4311-43-32 01:59:123.9 %FMonocytes [#/volume] in Blood by Automated mlimz5290-96-03 01:59:05683 Cell/uLF0.0-1100.0 Basophils [#/volume] in Blood by Automated xdtty4235-30-02 01:59:1227 Cell/uLF 0.0-400.0Neutrophils [#/volume] in Blood by Automated rniah1021-44-57 01:59:12 3398 Cell/pGN7081.0-8800.0Basophils [#/volume] in Blood by Automated count 2024-01-18 01:59:1227 Cell/uLF0.0-400.0Eosinophils [#/volume] in Blood by Automated yivqp1611-07-69 01:59:38108 Cell/uLF0.0-700.0Basophils/100 leukocytes in Blood by Automated iiczi0455-37-44 01:59:120.5 %FMonocytes/100 leukocytes in Blood by Automated pxbyy7121-60-85 01:59:127.8 %FEosinophils/100 leukocytes in Blood by Automated llajg7405-08-09 01:59:123.9 %FEosinophils [#/volume] in Blood by Automated iwurq9740-82-27 01:59:23545 Cell/uLF0.0-700.0Lymphocytes [#/volume] in Blood by Automated nlvcf2330-54-27 01:59:749025 Cell/uLF 620.0-3660.0Neutrophils/100 leukocytes in Blood by Automated jakyp4786-42-19 01:59:1261.9 %FLymphocytes/100 leukocytes in Blood by Automated tsayd0143-59-06 01:59:1225.8 %FLeukocytes [#/volume] in Blood by Automated dcikt0294-86-32 01:59:125.5 x 10^3 cells/uLF4.0-11.0Monocytes [#/volume] in Blood by Automated mlotl4678-37-83 01:59:88401 Cell/uLF0.0-1100.0Neutrophils [#/volume] in Blood by Automated jfjjs3251-13-75 01:59:026556 Cell/nLU4230.0-8800.0Leukocytes [#/volume] in Blood by Automated dquky8371-19-96 01:59:125.5 x 10^3 cells/uLF 4.0-11.0Lymphocytes [#/volume] in Blood by Automated viftp6668-96-32 01:59:12 1416 Cell/aOF853.0-3660.0Leukocytes [#/volume] in Blood by Automated count 2023-12-13 14:22:064.4 x 10^3 cells/uLF4.0-11.0Monocytes [#/volume] in Blood by Automated eoiie7441-48-83 14:22:85310 Cell/uLF0.0-1100.0Eosinophils/100 leukocytes in Blood by Automated iybho4291-83-19 14:22:063.7 %FMonocytes/100 leukocytes in Blood by Automated tlqaz9754-44-62 14:22:0610.2 %FBasophils [#/volume] in Blood by Automated kobqy1080-02-01 14:22:0640 Cell/uLF0.0-400.0 Neutrophils/100 leukocytes in Blood by Automated acgzy5482-95-89 14:22:0653.8 %F Basophils/100 leukocytes in Blood by Automated ccsgz5078-47-14 14:22:060.9 %F Lymphocytes/100 leukocytes in Blood by Automated zthbs1925-59-89 14:22:0631.3 %F Neutrophils [#/volume] in Blood by Automated zighc1042-35-82 14:22:630009 Cell/kWL4857.0-8800.0Lymphocytes [#/volume] in Blood by Automated count 2023-12-13 14:22:063418 Cell/eRY937.0-3660.0Eosinophils [#/volume] in Blood by Automated lcdzb6455-08-79 14:22:31072 Cell/uLF0.0-700.0Neutrophils/100 leukocytes in Blood by Automated lnsip1318-28-87 14:22:0653.8 %FLymphocytes/100 leukocytes in Blood by Automated djevn1810-54-57 14:22:0631.3 %FBasophils/100 leukocytes in Blood by Automated gwbxy6381-83-64 14:22:060.9 %FEosinophils/100 leukocytes in Blood by Automated vqbtw0480-83-05 14:22:063.7 %FMonocytes/100 leukocytes in Blood by Automated epeog3136-95-75 14:22:0610.2 %FMonocytes [#/volume] in Blood by Automated mjqrf0510-55-16 14:22:98886 Cell/uLF0.0-1100.0 Eosinophils [#/volume] in Blood by Automated mipry0421-83-11 14:22:41360 Cell/uL F0.0-700.0Basophils [#/volume] in Blood by Automated qxsid8603-09-94 14:22:0640 Cell/uLF0.0-400.0Neutrophils [#/volume] in Blood by Automated brkgd1926-42-27 14:22:749947 Cell/aVW5141.0-8800.0Leukocytes [#/volume] in Blood by Automated dereu9436-18-98 14:22:064.4 x 10^3 cells/uLF4.0-11.0Lymphocytes [#/volume] in Blood by Automated tahrk7605-38-43 14:22:784974 Cell/tRL112.0-3660.0 Eosinophils/100 leukocytes in Blood by Automated gzcsy4318-89-89 01:19:470.5 %F Basophils/100 leukocytes in Blood by Automated gtjiw0010-26-16 01:19:470.4 %F Monocytes/100 leukocytes in Blood by Automated huteo7923-00-54 01:19:477.6 %F Neutrophils/100 leukocytes in Blood by Automated pwwew9847-86-20 01:19:4771.7 %F Lymphocytes/100 leukocytes in Blood by Automated cdoyo8796-73-52 01:19:4719.9 %F Basophils [#/volume] in Blood by Automated junbd0760-23-02 01:19:4728 Cell/uLF 0.0-400.0Eosinophils [#/volume] in Blood by Automated lflnn5641-71-43 01:19:4734 Cell/uLF0.0-700.0Monocytes [#/volume] in Blood by Automated bvwuq9171-19-05 01:19:44130 Cell/uLF0.0-1100.0Neutrophils [#/volume] in Blood by Automated count 2023-11-15 01:19:643634 Cell/lFM4192.0-8800.0Leukocytes [#/volume] in Blood by Automated pjozc1349-30-80 01:19:476.9 x 10^3 cells/uLF4.0-11.0Lymphocytes [#/volume] in Blood by Automated fksia1398-25-31 01:19:669221 Cell/uLF 620.0-3660.0Lymphocytes/100 leukocytes in Blood by Automated faqtc4060-35-06 01:19:4719.9 %FMonocytes/100 leukocytes in Blood by Automated lwhox1380-23-41 01:19:477.6 %FBasophils [#/volume] in Blood by Automated vpxrz3774-78-63 01:19:4728 Cell/uLF0.0-400.0Neutrophils [#/volume] in Blood by Automated count 2023-11-15 01:19:426166 Cell/lMZ4585.0-8800.0Leukocytes [#/volume] in Blood by Automated qnzym8652-70-97 01:19:476.9 x 10^3 cells/uLF4.0-11.0Basophils/100 leukocytes in Blood by Automated aytxq7247-33-11 01:19:470.4 %FEosinophils/100 leukocytes in Blood by Automated poxkp3123-86-21 01:19:470.5 %FNeutrophils/100 leukocytes in Blood by Automated xqsqn3472-79-82 01:19:4771.7 %FMonocytes [#/volume] in Blood by Automated dzwsf2374-08-85 01:19:38524 Cell/uLF0.0-1100.0 Eosinophils [#/volume] in Blood by Automated jtayg9833-27-59 01:19:4734 Cell/uLF 0.0-700.0Lymphocytes [#/volume] in Blood by Automated advas2630-89-96 01:19:47 1371 Cell/gET338.0-3660.0Monocytes/100 leukocytes in Blood by Automated count 2023-10-12 17:20:376.2 %FBasophils/100 leukocytes in Blood by Automated count 2023-10-12 17:20:370.5 %FLymphocytes/100 leukocytes in Blood by Automated count 2023-10-12 17:20:3723.2 %FMonocytes [#/volume] in Blood by Automated count 2023-10-12 17:20:30887 Cell/uLF0.0-1100.0Neutrophils/100 leukocytes in Blood by Automated uqxkl2251-46-02 17:20:3768 %FEosinophils/100 leukocytes in Blood by Automated vngjy1074-72-07 17:20:372 %FBasophils [#/volume] in Blood by Automated wshgi9414-25-55 17:20:3731 Cell/uLF0.0-400.0Eosinophils [#/volume] in Blood by Automated febhh8843-67-15 17:20:07022 Cell/uLF0.0-700.0Neutrophils [#/volume] in Blood by Automated vgzbz0341-76-87 17:20:266035 Cell/qQS4911.0-8800.0Leukocytes [#/volume] in Blood by Automated dhotd6931-24-48 17:20:376.2 x 10^3 cells/uLF 4.0-11.0Lymphocytes [#/volume] in Blood by Automated uiten8810-38-15 17:20:37 1450 Cell/tYX089.0-3660.0Neutrophils/100 leukocytes in Blood by Automated count 2023-10-12 17:20:3768 %FMonocytes/100 leukocytes in Blood by Automated count 2023-10-12 17:20:376.2 %FEosinophils/100 leukocytes in Blood by Automated count 2023-10-12 17:20:372 %FBasophils/100 leukocytes in Blood by Automated count 2023-10-12 17:20:370.5 %FLymphocytes/100 leukocytes in Blood by Automated count 2023-10-12 17:20:3723.2 %FMonocytes [#/volume] in Blood by Automated count 2023-10-12 17:20:40667 Cell/uLF0.0-1100.0Basophils [#/volume] in Blood by Automated zmzck7376-27-24 17:20:3731 Cell/uLF0.0-400.0Eosinophils [#/volume] in Blood by Automated rpjfq9261-36-67 17:20:61728 Cell/uLF0.0-700.0Neutrophils [#/volume] in Blood by Automated nzgit1793-90-61 17:20:543608 Cell/uLF 2000.0-8800.0Leukocytes [#/volume] in Blood by Automated rixku6549-31-02 17:20:376.2 x 10^3 cells/uLF4.0-11.0Lymphocytes [#/volume] in Blood by Automated hciog1273-10-93 17:20:169708 Cell/vIN599.0-3660.0Basophils/100 leukocytes in Blood by Automated vymwt5460-78-26 04:58:260.5 %FMonocytes/100 leukocytes in Blood by Automated oalvb9621-64-72 04:58:266.5 %FEosinophils/100 leukocytes in Blood by Automated jzkqs7476-04-74 04:58:263.6 %FLymphocytes/100 leukocytes in Blood by Automated iukyt1307-56-95 04:58:2623.6 %FNeutrophils/100 leukocytes in Blood by Automated bgmcs9460-38-58 04:58:2665.7 %FMonocytes [#/volume] in Blood by Automated dxcwd3998-56-88 04:58:01488 Cell/uLF0.0-1100.0Eosinophils [#/volume] in Blood by Automated ortqh7781-61-77 04:58:84540 Cell/uLF0.0-700.0 Basophils [#/volume] in Blood by Automated xuvoh9773-97-47 04:58:2628 Cell/uLF 0.0-400.0Neutrophils [#/volume] in Blood by Automated abbdw3551-58-62 04:58:26 3699 Cell/lXL5309.0-8800.0Leukocytes [#/volume] in Blood by Automated count 2023-09-13 04:58:265.6 x 10^3 cells/uLF4.0-11.0Lymphocytes [#/volume] in Blood by Automated garnn1892-97-69 04:58:160624 Cell/bUF886.0-3660.0Monocytes/100 leukocytes in Blood by Automated miijz3442-45-73 04:58:266.5 %FEosinophils/100 leukocytes in Blood by Automated hlbvp0185-57-91 04:58:263.6 %FBasophils/100 leukocytes in Blood by Automated nmale3169-80-68 04:58:260.5 %FNeutrophils/100 leukocytes in Blood by Automated sjnpw3960-78-80 04:58:2665.7 %FLymphocytes/100 leukocytes in Blood by Automated fjgym8442-87-84 04:58:2623.6 %FMonocytes [#/volume] in Blood by Automated gmsun7209-48-50 04:58:68442 Cell/uLF0.0-1100.0 Basophils [#/volume] in Blood by Automated ufjky2440-73-05 04:58:2628 Cell/uLF 0.0-400.0Eosinophils [#/volume] in Blood by Automated gajme7368-46-14 04:58:26 203 Cell/uLF0.0-700.0Neutrophils [#/volume] in Blood by Automated count 2023-09-13 04:58:918584 Cell/oTQ3531.0-8800.0Leukocytes [#/volume] in Blood by Automated kxeab1974-45-95 04:58:265.6 x 10^3 cells/uLF4.0-11.0Lymphocytes [#/volume] in Blood by Automated syihy8997-18-86 04:58:305784 Cell/uLF 620.0-3660.0Lymphocytes/100 leukocytes in Blood by Automated cdugb0866-67-72 16:45:2115.7 %FEosinophils/100 leukocytes in Blood by Automated ljrql9263-09-56 16:45:212.9 %FBasophils/100 leukocytes in Blood by Automated bhecr2732-24-16 16:45:210.3 %FNeutrophils/100 leukocytes in Blood by Automated cdzjv6314-31-08 16:45:2173.2 %FMonocytes/100 leukocytes in Blood by Automated sdsuz7533-39-94 16:45:217.9 %FMonocytes [#/volume] in Blood by Automated smwgy6192-98-72 16:45:07646 Cell/uLF0.0-1100.0Basophils [#/volume] in Blood by Automated count 2023-08-15 16:45:2123 Cell/uLF0.0-400.0Eosinophils [#/volume] in Blood by Automated gatjl8052-59-97 16:45:75569 Cell/uLF0.0-700.0Neutrophils [#/volume] in Blood by Automated apzrt5880-68-33 16:45:833109 Cell/vCG2259.0-8800.0Leukocytes [#/volume] in Blood by Automated duviy3371-72-66 16:45:217.5 x 10^3 cells/uLF 4.0-11.0Lymphocytes [#/volume] in Blood by Automated ogaep2359-47-93 16:45:21 1181 Cell/cNB429.0-3660.0Eosinophils/100 leukocytes in Blood by Automated count 2023-07-12 12:24:313 %FBasophils [#/volume] in Blood by Automated count 2023-07-12 12:24:3129 Cell/uLF0.0-400.0Eosinophils [#/volume] in Blood by Automated onfna9553-70-01 12:24:60310 Cell/uLF0.0-700.0Lymphocytes/100 leukocytes in Blood by Automated lpcpd2882-20-71 12:24:3119.5 %FBasophils/100 leukocytes in Blood by Automated emawd8101-45-28 12:24:310.5 %FMonocytes/100 leukocytes in Blood by Automated ntcqa9981-99-95 12:24:318.5 %FNeutrophils/100 leukocytes in Blood by Automated hytyg6194-78-07 12:24:3168.5 %FMonocytes [#/volume] in Blood by Automated tgzkb7162-32-29 12:24:74394 Cell/uLF0.0-1100.0 Neutrophils [#/volume] in Blood by Automated dvjbi0209-44-82 12:24:543209 Cell/aZA1234.0-8800.0Leukocytes [#/volume] in Blood by Automated xyhgi1132-84-98 12:24:315.8 x 10^3 cells/uLF4.0-11.0Lymphocytes [#/volume] in Blood by Automated zrbkq7115-66-48 12:24:150670 Cell/dCC883.0-3660.0Basophils/100 leukocytes in Blood by Automated kmatl8157-40-31 12:24:310.5 %FMonocytes/100 leukocytes in Blood by Automated ebazk2966-91-02 12:24:318.5 %FLymphocytes/100 leukocytes in Blood by Automated tafxc4781-25-46 12:24:3119.5 %FEosinophils/100 leukocytes in Blood by Automated xpsdd9624-45-71 12:24:313 %FNeutrophils/100 leukocytes in Blood by Automated cusws9973-25-81 12:24:3168.5 %FMonocytes [#/volume] in Blood by Automated ctwrx4790-98-79 12:24:74199 Cell/uLF0.0-1100.0 Basophils [#/volume] in Blood by Automated iiuyu8868-31-25 12:24:3129 Cell/uLF 0.0-400.0Eosinophils [#/volume] in Blood by Automated xtfqv4318-97-04 12:24:31 174 Cell/uLF0.0-700.0Neutrophils [#/volume] in Blood by Automated count 2023-07-12 12:24:721560 Cell/sEJ3266.0-8800.0Leukocytes [#/volume] in Blood by Automated yvgdg2902-26-64 12:24:315.8 x 10^3 cells/uLF4.0-11.0Lymphocytes [#/volume] in Blood by Automated lpgts6448-45-89 12:24:118820 Cell/uLF 620.0-3660.0Lymphocytes/100 leukocytes in Blood by Automated kvrrl3532-70-10 14:49:3525.3 %FMonocytes/100 leukocytes in Blood by Automated uftlu8675-53-94 14:49:356.1 %FEosinophils [#/volume] in Blood by Automated nlnrf7663-42-05 14:49:99583 Cell/uLF0.0-700.0Basophils [#/volume] in Blood by Automated count 2023-06-14 14:49:3535 Cell/uLF0.0-400.0Leukocytes [#/volume] in Blood by Automated ckzxb7577-61-03 14:49:355.9 x 10^3 cells/uLF4.0-11.0Lymphocytes [#/volume] in Blood by Automated bcdwu8554-91-08 14:49:336686 Cell/uLF 620.0-3660.0Monocytes/100 leukocytes in Blood by Automated qwocx7752-06-95 14:49:356.1 %FBasophils [#/volume] in Blood by Automated uutij7241-93-44 14:49:3535 Cell/uLF0.0-400.0Eosinophils [#/volume] in Blood by Automated count 2023-06-14 14:49:46681 Cell/uLF0.0-700.0Lymphocytes [#/volume] in Blood by Automated agfjl0624-31-81 14:49:806053 Cell/xHI615.0-3660.0Leukocytes [#/volume] in Blood by Automated qrcvk9936-29-66 14:49:355.9 x 10^3 cells/uLF4.0-11.0 Lymphocytes/100 leukocytes in Blood by Automated kwkuu7509-44-78 14:49:3525.3 %F Leukocytes [#/volume] in Blood by Automated anuiy6829-13-95 14:49:355.9 x 10^3 cells/uLF4.0-11.0Lymphocytes [#/volume] in Blood by Automated tvejk1367-90-51 14:49:648613 Cell/nBW529.0-3660.0Basophils [#/volume] in Blood by Automated fvvdx4130-91-51 14:49:3535 Cell/uLF0.0-400.0Eosinophils [#/volume] in Blood by Automated dghfj8760-06-93 14:49:16430 Cell/uLF0.0-700.0Lymphocytes/100 leukocytes in Blood by Automated ixfyn5163-08-68 14:49:3525.3 %FMonocytes/100 leukocytes in Blood by Automated tsoza7430-78-84 14:49:356.1 %FEosinophils/100 leukocytes in Blood by Automated xorid6828-94-09 14:49:332.2 %FBasophils/100 leukocytes in Blood by Automated anrla2526-40-36 14:49:330.6 %FNeutrophils/100 leukocytes in Blood by Automated qhbqa0062-55-53 14:49:3365.8 %FMonocytes [#/volume] in Blood by Automated asmdl2528-61-28 14:49:19787 Cell/uLF0.0-1100.0 Neutrophils [#/volume] in Blood by Automated mlmaz3995-36-66 14:49:515414 Cell/iPJ6325.0-8800.0Neutrophils/100 leukocytes in Blood by Automated count 2023-06-14 14:49:3365.8 %FBasophils/100 leukocytes in Blood by Automated count 2023-06-14 14:49:330.6 %FMonocytes [#/volume] in Blood by Automated count 2023-06-14 14:49:52355 Cell/uLF0.0-1100.0Eosinophils/100 leukocytes in Blood by Automated ixjem8793-21-73 14:49:332.2 %FNeutrophils [#/volume] in Blood by Automated rhjht9577-44-48 14:49:224197 Cell/eVL0312.0-8800.0Eosinophils/100 leukocytes in Blood by Automated mvplw8264-96-83 14:49:332.2 %FNeutrophils/100 leukocytes in Blood by Automated uqlnk8472-47-52 14:49:3365.8 %FBasophils/100 leukocytes in Blood by Automated qehgk0200-03-61 14:49:330.6 %FNeutrophils [#/volume] in Blood by Automated hhjyc7578-93-25 14:49:392320 Cell/uLF 2000.0-8800.0Monocytes [#/volume] in Blood by Automated xgdur0453-13-53 14:49:33 359 Cell/uLF0.0-1100.0Neutrophils/100 leukocytes in Blood by Automated count 2023-05-17 02:52:0180.9 %FNeutrophils/100 leukocytes in Blood by Automated count 2023-05-17 02:52:0180.9 %FNeutrophils [#/volume] in Blood by Automated count 2023-05-17 02:51:633201 Cell/wAW9621.0-8800.0Leukocytes [#/volume] in Blood by Automated esaic9080-24-33 02:51:588.4 x 10^3 cells/uLF4.0-11.0Lymphocytes [#/volume] in Blood by Automated dozju9842-38-26 02:51:656827 Cell/uLF 620.0-3660.0Lymphocytes/100 leukocytes in Blood by Automated ugxye1313-12-40 02:51:5813 %FBasophils/100 leukocytes in Blood by Automated sllrg6840-17-58 02:51:580.2 %FMonocytes/100 leukocytes in Blood by Automated lduet6881-22-35 02:51:585.5 %FEosinophils/100 leukocytes in Blood by Automated daqxy9678-02-33 02:51:580.5 %FMonocytes [#/volume] in Blood by Automated kyurq6848-43-38 02:51:85867 Cell/uLF0.0-1100.0Basophils [#/volume] in Blood by Automated count 2023-05-17 02:51:5817 Cell/uLF0.0-400.0Eosinophils [#/volume] in Blood by Automated fqivt5332-43-36 02:51:5842 Cell/uLF0.0-700.0Neutrophils [#/volume] in Blood by Automated qtdtn3506-79-58 02:51:839426 Cell/lXD7637.0-8800.0Leukocytes [#/volume] in Blood by Automated hardb5178-93-72 02:51:588.4 x 10^3 cells/uLF 4.0-11.0Lymphocytes [#/volume] in Blood by Automated ugiwj5736-40-71 02:51:58 1096 Cell/pHF312.0-3660.0Lymphocytes/100 leukocytes in Blood by Automated count 2023-05-17 02:51:5813 %FEosinophils/100 leukocytes in Blood by Automated count 2023-05-17 02:51:580.5 %FMonocytes/100 leukocytes in Blood by Automated count 2023-05-17 02:51:585.5 %FBasophils/100 leukocytes in Blood by Automated count 2023-05-17 02:51:580.2 %FMonocytes [#/volume] in Blood by Automated count 2023-05-17 02:51:21238 Cell/uLF0.0-1100.0Basophils [#/volume] in Blood by Automated nyyhp8665-38-20 02:51:5817 Cell/uLF0.0-400.0Eosinophils [#/volume] in Blood by Automated htulu2008-66-26 02:51:5842 Cell/uLF0.0-700.0Monocytes/100 leukocytes in Blood by Automated ppxgr8892-99-00 01:24:246 %FBasophils/100 leukocytes in Blood by Automated vdghz9871-86-08 01:24:240.4 %FEosinophils/100 leukocytes in Blood by Automated jbzmg9177-83-75 01:24:240.5 %FMonocytes/100 leukocytes in Blood by Automated ekuxv7028-16-61 01:24:246 %FEosinophils/100 leukocytes in Blood by Automated zzocm1597-44-84 01:24:240.5 %FBasophils/100 leukocytes in Blood by Automated ocgdc4221-07-85 01:24:240.4 %FLymphocytes/100 leukocytes in Blood by Automated uhgxy0531-83-25 01:24:2112.7 %FNeutrophils/100 leukocytes in Blood by Automated hpknk4529-64-71 01:24:2180.5 %FMonocytes [#/volume] in Blood by Automated ljfch2475-15-32 01:24:82488 Cell/uLF0.0-1100.0 Eosinophils [#/volume] in Blood by Automated rkfpc1193-78-81 01:24:2143 Cell/uLF 0.0-700.0Basophils [#/volume] in Blood by Automated cpixh0695-65-98 01:24:2134 Cell/uLF0.0-400.0Neutrophils [#/volume] in Blood by Automated qkzhq1769-10-60 01:24:087083 Cell/sBD3386.0-8800.0Leukocytes [#/volume] in Blood by Automated jbnrs7403-26-66 01:24:218.6 x 10^3 cells/uLF4.0-11.0Lymphocytes [#/volume] in Blood by Automated smekt0380-28-16 01:24:406938 Cell/bAP302.0-3660.0 Lymphocytes/100 leukocytes in Blood by Automated laxol8694-78-66 01:24:2112.7 %F Neutrophils/100 leukocytes in Blood by Automated vrrrb0910-04-07 01:24:2180.5 %F Monocytes [#/volume] in Blood by Automated kuble6627-09-00 01:24:58900 Cell/uLF 0.0-1100.0Basophils [#/volume] in Blood by Automated ulber9543-58-68 01:24:2134 Cell/uLF0.0-400.0Eosinophils [#/volume] in Blood by Automated brtqf9526-61-63 01:24:2143 Cell/uLF0.0-700.0Neutrophils [#/volume] in Blood by Automated count 2023-04-12 01:24:788140 Cell/oNS4389.0-8800.0Leukocytes [#/volume] in Blood by Automated fchzq7952-89-12 01:24:218.6 x 10^3 cells/uLF4.0-11.0Lymphocytes [#/volume] in Blood by Automated tmsza7938-45-64 01:24:444553 Cell/uLF 620.0-3660.0Lymphocytes/100 leukocytes in Blood by Automated xldyd8333-81-70 07:05:3010.2 %FNeutrophils/100 leukocytes in Blood by Automated pvrbl6261-07-95 07:05:3080.9 %FEosinophils/100 leukocytes in Blood by Automated rwwjo7034-95-56 07:05:301.7 %FMonocytes/100 leukocytes in Blood by Automated utdaw4675-19-40 07:05:306.7 %FBasophils/100 leukocytes in Blood by Automated rfcuu9614-54-48 07:05:300.5 %FMonocytes [#/volume] in Blood by Automated oxuwv2281-60-84 07:05:05428 Cell/uLF0.0-1100.0Basophils [#/volume] in Blood by Automated count 2023-03-15 07:05:3057 Cell/uLF0.0-400.0Eosinophils [#/volume] in Blood by Automated etplx5978-78-80 07:05:15191 Cell/uLF0.0-700.0Neutrophils [#/volume] in Blood by Automated vqkxx6886-80-92 07:05:514755 Cell/wZB1838.0-8800.0Leukocytes [#/volume] in Blood by Automated fdojz7597-91-53 07:05:3011.4 x 10^3 cells/uLF 4.0-11.0Lymphocytes [#/volume] in Blood by Automated opbyn9061-77-07 07:05:30 1159 Cell/kNL933.0-3660.0Basophils/100 leukocytes in Blood by Automated count 2023-02-14 20:17:290.2 %FEosinophils/100 leukocytes in Blood by Automated count 2023-02-14 20:17:293.6 %FNeutrophils/100 leukocytes in Blood by Automated count 2023-02-14 20:17:2965.2 %FMonocytes/100 leukocytes in Blood by Automated count 2023-02-14 20:17:299.7 %FLymphocytes/100 leukocytes in Blood by Automated count 2023-02-14 20:17:2921.4 %FMonocytes [#/volume] in Blood by Automated count 2023-02-14 20:17:53221 Cell/uLF0.0-1100.0Basophils [#/volume] in Blood by Automated perdn6075-62-07 20:17:2912 Cell/uLF0.0-400.0Eosinophils [#/volume] in Blood by Automated ywzkv8284-65-23 20:17:81422 Cell/uLF0.0-700.0Neutrophils [#/volume] in Blood by Automated dpvmi9063-21-67 20:17:226261 Cell/uLF 2000.0-8800.0Leukocytes [#/volume] in Blood by Automated bmhdx1731-79-26 20:17:296 x 10^3 cells/uLF4.0-11.0Lymphocytes [#/volume] in Blood by Automated efumr1841-02-34 20:17:262349 Cell/mXF400.0-3660.0Basophils/100 leukocytes in Blood by Automated mojuz7198-80-55 20:17:290.2 %FLymphocytes/100 leukocytes in Blood by Automated ojbjp9781-05-76 20:17:2921.4 %FNeutrophils/100 leukocytes in Blood by Automated dwflw3622-85-11 20:17:2965.2 %FMonocytes/100 leukocytes in Blood by Automated dhshs7706-33-18 20:17:299.7 %FEosinophils/100 leukocytes in Blood by Automated iwtky4574-30-24 20:17:293.6 %FMonocytes [#/volume] in Blood by Automated okelz8502-59-59 20:17:00084 Cell/uLF0.0-1100.0Basophils [#/volume] in Blood by Automated vwhri4885-86-06 20:17:2912 Cell/uLF0.0-400.0Eosinophils [#/volume] in Blood by Automated mdghf2474-43-21 20:17:56194 Cell/uLF0.0-700.0 Neutrophils [#/volume] in Blood by Automated ghrau2120-19-65 20:17:047918 Cell/rOY5970.0-8800.0Leukocytes [#/volume] in Blood by Automated pzclo2008-32-35 20:17:296 x 10^3 cells/uLF4.0-11.0Lymphocytes [#/volume] in Blood by Automated hisbz8097-83-77 20:17:034283 Cell/zIQ456.0-3660.0Lymphocytes/100 leukocytes in Blood by Automated vuvrs1006-60-62 20:17:2921.4 %FBasophils/100 leukocytes in Blood by Automated abszh2530-58-43 20:17:290.2 %FNeutrophils/100 leukocytes in Blood by Automated vbgue1143-48-69 20:17:2965.2 %FLeukocytes [#/volume] in Blood by Automated nggyd4913-27-16 20:17:296 x 10^3 cells/uLF4.0-11.0Lymphocytes [#/volume] in Blood by Automated zggqj5052-10-54 20:17:442443 Cell/uLF 620.0-3660.0Monocytes/100 leukocytes in Blood by Automated wltdq8327-66-22 20:17:299.7 %FEosinophils/100 leukocytes in Blood by Automated wurvp1760-19-50 20:17:293.6 %FMonocytes [#/volume] in Blood by Automated sdhpl3589-92-13 20:17:02003 Cell/uLF0.0-1100.0Basophils [#/volume] in Blood by Automated count 2023-02-14 20:17:2912 Cell/uLF0.0-400.0Eosinophils [#/volume] in Blood by Automated jkjiy6011-00-60 20:17:61699 Cell/uLF0.0-700.0Neutrophils [#/volume] in Blood by Automated dkjow1128-42-53 20:17:274901 Cell/tKI7187.0-8800.0 Lymphocytes/100 leukocytes in Blood by Automated bqcli2813-31-98 21:33:2920.2 %F Neutrophils [#/volume] in Blood by Automated acupg2429-88-23 21:33:509058 Cell/pEL9389.0-8800.0Lymphocytes [#/volume] in Blood by Automated count 2023-01-11 21:33:95812 Cell/rZM900.0-3660.0Lymphocytes/100 leukocytes in Blood by Automated kpxxu2427-81-16 21:33:2920.2 %FNeutrophils [#/volume] in Blood by Automated vhgdd9653-34-61 21:33:121796 Cell/hCR0319.0-8800.0Lymphocytes [#/volume] in Blood by Automated trist9377-78-96 21:33:99275 Cell/uLF 620.0-3660.0Eosinophils/100 leukocytes in Blood by Automated qifcn2638-35-63 21:33:286.8 %FNeutrophils/100 leukocytes in Blood by Automated irhca0882-98-24 21:33:2863.4 %FBasophils [#/volume] in Blood by Automated ghutj9523-25-31 21:33:2880 Cell/uLF0.0-400.0Monocytes [#/volume] in Blood by Automated count 2023-01-11 21:33:47603 Cell/uLF0.0-1100.0Basophils/100 leukocytes in Blood by Automated lerkp9596-94-90 21:33:281.8 %FEosinophils [#/volume] in Blood by Automated zmbpb8090-03-51 21:33:79500 Cell/uLF0.0-700.0Monocytes/100 leukocytes in Blood by Automated goiep4853-04-62 21:33:287.8 %FLeukocytes [#/volume] in Blood by Automated fqbqp7928-00-90 21:33:284.4 x 10^3 cells/uLF4.0-11.0 Eosinophils/100 leukocytes in Blood by Automated eosvb8830-68-02 21:33:286.8 %F Monocytes/100 leukocytes in Blood by Automated zufcn0757-19-83 21:33:287.8 %F Basophils/100 leukocytes in Blood by Automated nzvix2299-02-22 21:33:281.8 %F Neutrophils/100 leukocytes in Blood by Automated etwav2711-26-14 21:33:2863.4 %F Monocytes [#/volume] in Blood by Automated hfhst3855-15-45 21:33:73750 Cell/uLF 0.0-1100.0Basophils [#/volume] in Blood by Automated qjjea1897-27-96 21:33:2880 Cell/uLF0.0-400.0Eosinophils [#/volume] in Blood by Automated nhhju0080-87-80 21:33:19175 Cell/uLF0.0-700.0Leukocytes [#/volume] in Blood by Automated count 2023-01-11 21:33:284.4 x 10^3 cells/uLF4.0-11.0Eosinophils/100 leukocytes in Blood by Automated dszbt7963-63-29 06:50:313 %FBasophils/100 leukocytes in Blood by Automated wabri7639-74-50 06:50:310.4 %FMonocytes/100 leukocytes in Blood by Automated vinuh6780-18-18 06:50:319.2 %FLymphocytes/100 leukocytes in Blood by Automated rqmrn5903-25-46 06:50:3126.7 %FNeutrophils/100 leukocytes in Blood by Automated wsnkv6827-85-12 06:50:3160.6 %FMonocytes [#/volume] in Blood by Automated jnztm0013-79-29 06:50:52820 Cell/uLF0.0-1100.0Basophils [#/volume] in Blood by Automated ogqfr0197-01-22 06:50:3117 Cell/uLF0.0-400.0Eosinophils [#/volume] in Blood by Automated tnmny0980-17-01 06:50:90330 Cell/uLF0.0-700.0 Neutrophils [#/volume] in Blood by Automated jbxlx9495-40-39 06:50:373817 Cell/pYZ1506.0-8800.0Leukocytes [#/volume] in Blood by Automated jypcg5084-54-37 06:50:314.4 x 10^3 cells/uLF4.0-11.0Lymphocytes [#/volume] in Blood by Automated bkhlt1817-91-89 06:50:706926 Cell/vEB403.0-3660.0Lymphocytes/100 leukocytes in Blood by Automated dvnhu9824-06-35 19:53:3028.3 %FMonocytes/100 leukocytes in Blood by Automated ctgfw2028-59-18 19:53:307 %FEosinophils/100 leukocytes in Blood by Automated zhsvj2601-39-51 19:53:306.4 %FNeutrophils/100 leukocytes in Blood by Automated pkoqc8258-49-54 19:53:3057.8 %FBasophils/100 leukocytes in Blood by Automated caawd6195-94-79 19:53:300.5 %FMonocytes [#/volume] in Blood by Automated dxxxh9182-99-68 19:53:23681 Cell/uLF0.0-1100.0 Basophils [#/volume] in Blood by Automated pdedo0337-04-07 19:53:3024 Cell/uLF 0.0-400.0Eosinophils [#/volume] in Blood by Automated zgstm4122-70-72 19:53:30 302 Cell/uLF0.0-700.0Neutrophils [#/volume] in Blood by Automated count 2022-11-15 19:53:020936 Cell/nBF2435.0-8800.0Leukocytes [#/volume] in Blood by Automated pmgkt1827-58-13 19:53:304.7 x 10^3 cells/uLF4.0-11.0Lymphocytes [#/volume] in Blood by Automated zdijz8602-40-09 19:53:423057 Cell/uLF 620.0-3660.0Monocytes/100 leukocytes in Blood by Automated mruwf4800-04-70 19:53:307 %FEosinophils/100 leukocytes in Blood by Automated kfxdc3009-62-20 19:53:306.4 %FLymphocytes/100 leukocytes in Blood by Automated ucpbj0726-99-28 19:53:3028.3 %FNeutrophils/100 leukocytes in Blood by Automated xuzaw2037-52-06 19:53:3057.8 %FBasophils/100 leukocytes in Blood by Automated nsxya7466-12-66 19:53:300.5 %FBasophils [#/volume] in Blood by Automated vwsfk1878-26-61 19:53:3024 Cell/uLF0.0-400.0Monocytes [#/volume] in Blood by Automated count 2022-11-15 19:53:37342 Cell/uLF0.0-1100.0Lymphocytes [#/volume] in Blood by Automated fnucy1959-31-08 19:53:480822 Cell/wWU070.0-3660.0Eosinophils [#/volume] in Blood by Automated iqqty5633-12-29 19:53:52822 Cell/uLF0.0-700.0 Neutrophils [#/volume] in Blood by Automated eeaja8745-53-24 19:53:970366 Cell/sYF3721.0-8800.0Leukocytes [#/volume] in Blood by Automated uvlnz1292-95-17 19:53:304.7 x 10^3 cells/uLF4.0-11.0Neutrophils/100 leukocytes in Blood by Automated jnpit5325-26-04 19:53:3057.8 %FLymphocytes/100 leukocytes in Blood by Automated gsepo0015-91-74 19:53:3028.3 %FNeutrophils [#/volume] in Blood by Automated mbhrh2455-65-79 19:53:606311 Cell/bGG0272.0-8800.0Lymphocytes [#/volume] in Blood by Automated nyqdx5788-09-88 19:53:176826 Cell/uLF 620.0-3660.0Basophils [#/volume] in Blood by Automated ypzsr0006-81-40 19:53:30 24 Cell/uLF0.0-400.0Eosinophils/100 leukocytes in Blood by Automated count 2022-11-15 19:53:306.4 %FLeukocytes [#/volume] in Blood by Automated count 2022-11-15 19:53:304.7 x 10^3 cells/uLF4.0-11.0Monocytes [#/volume] in Blood by Automated lndva2318-74-87 19:53:46204 Cell/uLF0.0-1100.0Eosinophils [#/volume] in Blood by Automated euhjs8434-09-60 19:53:09682 Cell/uLF0.0-700.0Basophils/100 leukocytes in Blood by Automated uuwre9206-59-08 19:53:300.5 %FMonocytes/100 leukocytes in Blood by Automated wwduo1766-20-54 19:53:307 %FLymphocytes/100 leukocytes in Blood by Automated crmwt4471-12-68 21:33:4821.2 %FEosinophils [#/volume] in Blood by Automated shvdn8114-70-39 21:33:55284 Cell/uLF0.0-700.0 Basophils [#/volume] in Blood by Automated edyvd4462-02-91 21:33:4822 Cell/uLF 0.0-400.0Eosinophils [#/volume] in Blood by Automated vvpdh7005-59-37 21:33:48 266 Cell/uLF0.0-700.0Lymphocytes/100 leukocytes in Blood by Automated count 2022-10-12 21:33:4821.2 %FBasophils [#/volume] in Blood by Automated count 2022-10-12 21:33:4822 Cell/uLF0.0-400.0Monocytes/100 leukocytes in Blood by Automated jrbwh7313-92-03 21:33:466.7 %FEosinophils/100 leukocytes in Blood by Automated mcnkp0141-63-41 21:33:464.9 %FBasophils/100 leukocytes in Blood by Automated vgezz4112-68-55 21:33:460.4 %FNeutrophils/100 leukocytes in Blood by Automated enmbt4078-93-24 21:33:4666.8 %FMonocytes [#/volume] in Blood by Automated knnhr9374-71-28 21:33:37998 Cell/uLF0.0-1100.0Neutrophils [#/volume] in Blood by Automated cjxhc5429-57-66 21:33:461919 Cell/cJM8901.0-8800.0 Leukocytes [#/volume] in Blood by Automated cogcm6337-33-53 21:33:465.4 x 10^3 cells/uLF4.0-11.0Lymphocytes [#/volume] in Blood by Automated pejce9027-98-38 21:33:428856 Cell/lPK905.0-3660.0Monocytes/100 leukocytes in Blood by Automated zsjff0992-46-81 21:33:466.7 %FBasophils/100 leukocytes in Blood by Automated jynbz1995-86-89 21:33:460.4 %FNeutrophils/100 leukocytes in Blood by Automated rylxn9522-86-91 21:33:4666.8 %FLeukocytes [#/volume] in Blood by Automated count 2022-10-12 21:33:465.4 x 10^3 cells/uLF4.0-11.0Eosinophils/100 leukocytes in Blood by Automated dhtxe4049-41-93 21:33:464.9 %FMonocytes [#/volume] in Blood by Automated mvpnc2016-98-43 21:33:66518 Cell/uLF0.0-1100.0Neutrophils [#/volume] in Blood by Automated nrmeb2445-86-52 21:33:349818 Cell/uLF 2000.0-8800.0Lymphocytes [#/volume] in Blood by Automated uchib1839-28-98 21:33:720053 Cell/sOY973.0-3660.0Eosinophils [#/volume] in Blood by Automated smqmz5338-91-21 21:54:31953.5 Cell/uLF0.0-700.0Eosinophils [#/volume] in Blood by Automated sfjhf6647-27-40 21:54:68950.5 Cell/uLF0.0-700.0Eosinophils [#/volume] in Blood by Automated ycsxi9282-47-92 21:54:19402.5 Cell/uLF0.0-700.0 Monocytes/100 leukocytes in Blood by Automated qgtgf2372-03-87 21:54:177.2 %F Lymphocytes/100 leukocytes in Blood by Automated qfwvv7931-45-55 21:54:1732.4 %F Neutrophils/100 leukocytes in Blood by Automated ijyxm8981-59-32 21:54:1754.3 %F Eosinophils/100 leukocytes in Blood by Automated byjzk5656-95-34 21:54:175.3 %F Basophils/100 leukocytes in Blood by Automated hijyt4640-09-20 21:54:170.8 %F Monocytes [#/volume] in Blood by Automated ovbtd1773-42-46 21:54:47045 Cell/uLF 0.0-1100.0Basophils [#/volume] in Blood by Automated slhis8368-11-45 21:54:1744 Cell/uLF0.0-400.0Neutrophils [#/volume] in Blood by Automated vjnvs3712-40-91 21:54:358333.5 Cell/iRK7022.0-8800.0Leukocytes [#/volume] in Blood by Automated woyap7636-68-02 21:54:175.5 x 10^3 cells/uLF4.0-11.0Lymphocytes [#/volume] in Blood by Automated awvfj9098-98-47 21:54:787791 Cell/sID537.0-3660.0 Monocytes/100 leukocytes in Blood by Automated ujmey3635-35-58 21:54:177.2 %F Basophils/100 leukocytes in Blood by Automated rpopt2906-23-04 21:54:170.8 %F Lymphocytes/100 leukocytes in Blood by Automated vfmsz1450-31-77 21:54:1732.4 %F Neutrophils/100 leukocytes in Blood by Automated igzvk8990-64-16 21:54:1754.3 %F Eosinophils/100 leukocytes in Blood by Automated mhjfe0402-28-53 21:54:175.3 %F Monocytes [#/volume] in Blood by Automated yarrz1154-54-30 21:54:87899 Cell/uLF 0.0-1100.0Basophils [#/volume] in Blood by Automated lbdbf5189-69-81 21:54:1744 Cell/uLF0.0-400.0Neutrophils [#/volume] in Blood by Automated yrqzh0905-70-51 21:54:349869.5 Cell/mYC6300.0-8800.0Leukocytes [#/volume] in Blood by Automated aptva8498-96-24 21:54:175.5 x 10^3 cells/uLF4.0-11.0Lymphocytes [#/volume] in Blood by Automated mybnh9552-48-44 21:54:243717 Cell/iYL376.0-3660.0 Basophils/100 leukocytes in Blood by Automated bskrj2837-35-18 21:54:170.8 %F Monocytes/100 leukocytes in Blood by Automated edvbr0946-97-14 21:54:177.2 %F Lymphocytes/100 leukocytes in Blood by Automated zeale0397-01-60 21:54:1732.4 %F Eosinophils/100 leukocytes in Blood by Automated pgamz4663-24-38 21:54:175.3 %F Basophils [#/volume] in Blood by Automated iybjn4649-62-44 21:54:1744 Cell/uLF 0.0-400.0Neutrophils [#/volume] in Blood by Automated lmbcx3778-88-68 21:54:17 2986.5 Cell/wMM1828.0-8800.0Leukocytes [#/volume] in Blood by Automated count 2022-09-15 21:54:175.5 x 10^3 cells/uLF4.0-11.0Lymphocytes [#/volume] in Blood by Automated ykzvy1006-76-24 21:54:668953 Cell/xNQ383.0-3660.0Neutrophils/100 leukocytes in Blood by Automated hkexx4319-34-99 21:54:1754.3 %FMonocytes [#/volume] in Blood by Automated bzlov4375-34-20 21:54:26382 Cell/uLF0.0-1100.0 MineralBone DisorderDescriptionDraw DateResult/UnitStatusRef RangeResult CommentsCA XNDSKNQFV4503-67-25 11:12:268.9 mg/dLFCA NWXUIAUFY7231-89-39 11:12:26 8.9 mg/dLFCA/PHOS PCCYJPW8839-07-38 11:10:3359.6 CalcF21.0-53.0CA*PO4 CORRCTD 2024-04-18 11:10:3359.6 CalcF21.0-53.0CA*PO4 JYYKGSV2750-11-23 11:10:3359.6 Calc F21.0-53.0CA/PHOS WHJUAXE4522-00-83 11:10:3359.6 CalcF21.0-53.0Phosphate [Mass/volume] in Serum or Cnwvob9373-94-23 08:18:476.7 mg/dLF2.4-5.1Calcium [Mass/volume] in Serum or Logwqr9218-35-84 08:18:478.9 mg/dLF8.7-10.4Phosphate [Mass/volume] in Serum or Ubgyzc1410-58-97 08:18:476.7 mg/dLF2.4-5.1Calcium [Mass/volume] in Serum or Eauqlb6967-66-13 08:18:478.9 mg/dLF8.7-10.4 Parathyrin.intact [Mass/volume] in Serum or Mtjoxz6118-15-15 22:51:10564 pg/mLF 18.0-80.0Parathyrin.intact [Mass/volume] in Serum or Ilddgf1423-94-71 22:51:26 642 pg/mLF18.0-80.0Alkaline phosphatase [Enzymatic activity/volume] in Serum or Fdpgbs4832-52-73 17:54:73043 U/LF46.0-116.0Alkaline phosphatase [Enzymatic activity/volume] in Serum or Eqlmos1713-32-00 17:54:18608 U/LF46.0-116.0 Parathyrin.intact [Mass/volume] in Serum or Yzldgg8170-10-64 03:39:451288 pg/mLF 18.0-80.0Parathyrin.intact [Mass/volume] in Serum or Ugvwnd6340-71-38 03:39:23 1037 pg/mLF18.0-80.0Parathyrin.intact [Mass/volume] in Serum or Hufnwk3940-50-57 03:39:432102 pg/mLF18.0-80.0CA JKJPLSMRL8909-10-63 09:42:029.3 mg/dLFCA NFGXWMMBK4980-03-55 09:42:029.3 mg/dLFCA HBCQKARFI5016-07-74 09:42:029.3 mg/dLF CA/PHOS LSSGZUF4195-55-05 09:40:0167 CalcF21.0-53.0CA*PO4 OJDVIFY0801-51-71 09:40:0167 CalcF21.0-53.0CA/PHOS FCWSYZS8979-76-28 09:40:0167 CalcF21.0-53.0 CA*PO4 ESWAJOQ2730-00-35 09:40:0167 CalcF21.0-53.0CA/PHOS KDGGCIU3004-19-79 09:40:0167 CalcF21.0-53.0CA*PO4 APAKCKK1838-68-05 09:40:0167 CalcF21.0-53.0 Phosphate [Mass/volume] in Serum or Lewlja4427-03-36 08:07:357.2 mg/dLF2.4-5.1 Calcium [Mass/volume] in Serum or Mafbzx6547-54-94 08:07:359.3 mg/dLF8.7-10.4 Calcium [Mass/volume] in Serum or Rswzjo4513-59-10 08:07:359.3 mg/dLF8.7-10.4 Phosphate [Mass/volume] in Serum or Fwivzi7481-47-96 08:07:357.2 mg/dLF2.4-5.1 Phosphate [Mass/volume] in Serum or Uauxxm4922-40-78 08:07:357.2 mg/dLF2.4-5.1 Calcium [Mass/volume] in Serum or Qvwjlu8780-17-26 08:07:359.3 mg/dLF8.7-10.4 Alkaline phosphatase [Enzymatic activity/volume] in Serum or Emrxyp7403-20-79 00:20:69013 U/LF46.0-116.0Alkaline phosphatase [Enzymatic activity/volume] in Serum or Ezpghf2770-36-27 00:20:68683 U/LF46.0-116.0Alkaline phosphatase [Enzymatic activity/volume] in Serum or Vtomsa2032-30-58 00:20:88177 U/LF 46.0-116.0CA NLLGRAHCV3530-26-83 08:53:429.6 mg/dLFCA QFZERPQWV3134-99-83 08:53:429.6 mg/dLFCA UOXOFAPEU9427-38-57 08:53:429.6 mg/dLFCA*PO4 CORRCTD 2024-02-14 08:52:4892.2 CalcF21.0-53.0CA/PHOS ZAHZLBO3690-48-90 08:52:4892.2 CalcF21.0-53.0CA*PO4 YJQDROB2606-04-25 08:52:4892.2 CalcF21.0-53.0CA/PHOS JTFUHHC6302-34-19 08:52:4892.2 CalcF21.0-53.0CA/PHOS ZKWVNJW1623-83-31 08:52:48 92.2 CalcF21.0-53.0CA*PO4 SCMGHIY9023-80-17 08:52:4892.2 CalcF21.0-53.0Calcium [Mass/volume] in Serum or Vbmhye5673-85-28 07:50:149.6 mg/dLF8.7-10.4Calcium [Mass/volume] in Serum or Pyefqv5637-86-87 07:50:149.6 mg/dLF8.7-10.4Calcium [Mass/volume] in Serum or Tacmmf3574-25-18 07:50:149.6 mg/dLF8.7-10.4 Parathyrin.intact [Mass/volume] in Serum or Iifspf0777-58-70 02:30:080816 pg/mLF 18.0-80.0Parathyrin.intact [Mass/volume] in Serum or Jsahoy8802-79-42 02:30:19 1329 pg/mLF18.0-80.0Parathyrin.intact [Mass/volume] in Serum or Fxlicz4635-77-46 02:30:904862 pg/mLF18.0-80.0Phosphate [Mass/volume] in Serum or Plasma 2024-02-13 23:58:209.6 mg/dLF2.4-5.1Alkaline phosphatase [Enzymatic activity/volume] in Serum or Hvyqjv3580-66-40 23:58:2095 U/LF46.0-116.0Phosphate [Mass/volume] in Serum or Jodfpd5376-57-07 23:58:209.6 mg/dLF2.4-5.1Alkaline phosphatase [Enzymatic activity/volume] in Serum or Unixhj4982-01-27 23:58:2095 U/LF46.0-116.0Phosphate [Mass/volume] in Serum or Cxoaes4198-75-56 23:58:209.6 mg/dLF2.4-5.1Alkaline phosphatase [Enzymatic activity/volume] in Serum or Plasma 2024-02-13 23:58:2095 U/LF46.0-116.0Parathyrin.intact [Mass/volume] in Serum or Deyhjy8956-37-55 13:35:31FRECOLLECT - OUTDATED SPECIMENParathyrin.intact [Mass/volume] in Serum or Njpmpf4513-39-05 13:35:31FRECOLLECT - OUTDATED SPECIMENParathyrin.intact [Mass/volume] in Serum or Gsimqq7344-15-22 13:35:31F RECOLLECT - OUTDATED SPECIMENParathyrin.intact [Mass/volume] in Serum or Plasma 2024-01-18 13:35:31FRECOLLECT - OUTDATED SPECIMENCA OHAKUMYKS9649-93-09 07:41:12 8.9 mg/dLFCA CSYCGWRWL8524-32-55 07:41:128.9 mg/dLFCA IEDWBLYDY9632-43-75 07:41:128.9 mg/dLFCA TVCTVMSGP8601-02-79 07:41:128.9 mg/dLFCA/PHOS PRODUCT 2024-01-18 06:40:2681 CalcF21.0-53.0CA*PO4 GVUPSEY2566-49-57 06:40:2681 CalcF 21.0-53.0CA*PO4 YXDIUHB8605-84-20 06:40:2681 CalcF21.0-53.0CA/PHOS PRODUCT 2024-01-18 06:40:2681 CalcF21.0-53.0CA/PHOS RGZDFQV9339-36-27 06:40:2681 CalcF 21.0-53.0CA*PO4 EDGELUL8855-46-19 06:40:2681 CalcF21.0-53.0CA/PHOS PRODUCT 2024-01-18 06:40:2681 CalcF21.0-53.0CA*PO4 ZTVNFVW2950-02-49 06:40:2681 CalcF 21.0-53.0Calcium [Mass/volume] in Serum or Vdanhy7487-08-21 06:31:048.9 mg/dLF 8.7-10.4Calcium [Mass/volume] in Serum or Itsnmm6524-77-86 06:31:048.9 mg/dLF 8.7-10.4Calcium [Mass/volume] in Serum or Cbdprj9282-86-20 06:31:048.9 mg/dLF 8.7-10.4Calcium [Mass/volume] in Serum or Zwkwdx5059-60-92 06:31:048.9 mg/dLF 8.7-10.4Phosphate [Mass/volume] in Serum or Rkuxnv0519-66-30 04:55:329.1 mg/dLF 2.4-5.1Alkaline phosphatase [Enzymatic activity/volume] in Serum or Plasma 2024-01-18 04:55:3296 U/LF46.0-116.0Phosphate [Mass/volume] in Serum or Plasma 2024-01-18 04:55:329.1 mg/dLF2.4-5.1Alkaline phosphatase [Enzymatic activity/volume] in Serum or Jhkdxq6606-53-52 04:55:3296 U/LF46.0-116.0Alkaline phosphatase [Enzymatic activity/volume] in Serum or Oywakz0236-02-92 04:55:3296 U/LF46.0-116.0Phosphate [Mass/volume] in Serum or Ofstpb0652-22-74 04:55:329.1 mg/dLF2.4-5.1Phosphate [Mass/volume] in Serum or Aaogwq4261-72-59 04:55:329.1 mg/dLF2.4-5.1Alkaline phosphatase [Enzymatic activity/volume] in Serum or Plasma 2024-01-18 04:55:3296 U/LF46.0-116.0CA VYWJMBWTM9062-37-80 06:32:568.7 mg/dLFCA XTMMVFRWT7830-66-43 06:32:568.7 mg/dLFCA/PHOS RZGQTFV4682-38-91 06:25:3262.6 CalcF21.0-53.0CA*PO4 SZKCBNR1084-66-45 06:25:3262.6 CalcF21.0-53.0CA/PHOS DPIUNQG2693-88-97 06:25:3262.6 CalcF21.0-53.0CA*PO4 KGNOWHG5866-38-32 06:25:32 62.6 CalcF21.0-53.0Calcium [Mass/volume] in Serum or Ddozjs4410-80-50 06:20:46 8.7 mg/dLF8.7-10.4Calcium [Mass/volume] in Serum or Bqbzso0980-69-36 06:20:468.7 mg/dLF8.7-10.4Parathyrin.intact [Mass/volume] in Serum or Dihlgl3300-22-30 04:18:102682 pg/mLF18.0-80.0Parathyrin.intact [Mass/volume] in Serum or Plasma 2023-12-13 04:18:348168 pg/mLF18.0-80.0Phosphate [Mass/volume] in Serum or Lhqzzb3207-75-10 23:07:127.2 mg/dLF2.4-5.1Alkaline phosphatase [Enzymatic activity/volume] in Serum or Ognwxc1024-76-50 23:07:1283 U/LF46.0-116.0Phosphate [Mass/volume] in Serum or Faktdw4790-02-68 23:07:127.2 mg/dLF2.4-5.1Alkaline phosphatase [Enzymatic activity/volume] in Serum or Aosioa1402-98-24 23:07:1283 U/LF46.0-116.0CA XVJSJEZRY7990-13-30 07:06:509.5 mg/dLFCA DCDAABZPG3242-44-36 07:06:509.5 mg/dLFCA/PHOS LKEZCQH0424-82-82 06:51:1879 CalcF21.0-53.0CA*PO4 FZQQEKR9359-81-29 06:51:1879.8 CalcF21.0-53.0CA/PHOS YUFRWHF4079-80-16 06:51:18 79 CalcF21.0-53.0CA*PO4 AAPWJXW9245-83-61 06:51:1879.8 CalcF21.0-53.0Calcium [Mass/volume] in Serum or Ppfvez1383-48-91 06:47:459.4 mg/dLF8.7-10.4Calcium [Mass/volume] in Serum or Czskiv2889-45-09 06:47:459.4 mg/dLF8.7-10.4 Parathyrin.intact [Mass/volume] in Serum or Fwrygq5031-43-11 00:21:379284 pg/mLF 18.0-80.0Parathyrin.intact [Mass/volume] in Serum or Sayoyd8194-74-45 00:21:45 2088 pg/mLF18.0-80.0Phosphate [Mass/volume] in Serum or Xsvfwi5667-53-87 15:57:408.4 mg/dLF2.4-5.1Alkaline phosphatase [Enzymatic activity/volume] in Serum or Abetfy3201-73-38 15:57:4083 U/LF46.0-116.0Phosphate [Mass/volume] in Serum or Rdmzou0558-62-65 15:57:408.4 mg/dLF2.4-5.1Alkaline phosphatase [Enzymatic activity/volume] in Serum or Wbfqkn6928-89-65 15:57:4083 U/LF 46.0-116.0CA ZAHRDRRIA4474-11-79 07:44:069 mg/dLFCA UAJWCBKRD1023-85-81 07:44:06 9 mg/dLFCA*PO4 FFCVBHC6431-96-20 07:26:2882.8 CalcF21.0-53.0CA/PHOS PRODUCT 2023-10-13 07:26:2882.8 CalcF21.0-53.0CA/PHOS AXJNJUD6572-73-80 07:26:2882.8 CalcF21.0-53.0CA*PO4 EXUTFSP1582-84-71 07:26:2882.8 CalcF21.0-53.0Calcium [Mass/volume] in Serum or Brksbg6807-81-21 07:15:519 mg/dLF8.7-10.4Calcium [Mass/volume] in Serum or Zepxzo9570-32-00 07:15:519 mg/dLF8.7-10.4 Parathyrin.intact [Mass/volume] in Serum or Vgofzj1861-66-17 07:05:121183 pg/mLF 18.0-80.0Parathyrin.intact [Mass/volume] in Serum or Gnurjf3070-34-79 07:05:27 1272 pg/mLF18.0-80.0Phosphate [Mass/volume] in Serum or Fngykd6113-12-02 17:22:329.2 mg/dLF2.4-5.1Alkaline phosphatase [Enzymatic activity/volume] in Serum or Jayjpm0501-24-06 17:22:3268 U/LF46.0-116.0Phosphate [Mass/volume] in Serum or Dqvppt9902-63-55 17:22:329.2 mg/dLF2.4-5.1Alkaline phosphatase [Enzymatic activity/volume] in Serum or Mbcmvm5056-60-04 17:22:3268 U/LF 46.0-116.0CA MWWIAFEXK9512-34-60 07:26:409.2 mg/dLFCA UESTSEZUK3106-48-51 07:26:409.2 mg/dLFCA/PHOS BDSESBV5181-09-18 07:21:3679.1 CalcF21.0-53.0CA*PO4 UEYUUWP0100-39-12 07:21:3679.1 CalcF21.0-53.0CA/PHOS OBXABZH0498-55-52 07:21:36 79.1 CalcF21.0-53.0CA*PO4 YDDPVDG9475-69-22 07:21:3679.1 CalcF21.0-53.0Calcium [Mass/volume] in Serum or Qgxzmc0686-49-57 07:13:429.2 mg/dLF8.7-10.4Calcium [Mass/volume] in Serum or Whvcdw1461-88-86 07:13:429.2 mg/dLF8.7-10.4 Parathyrin.intact [Mass/volume] in Serum or Orlvkn1960-83-96 04:44:642647 pg/mLF 18.0-80.0Parathyrin.intact [Mass/volume] in Serum or Xmknyf6601-55-17 04:44:35 1542 pg/mLF18.0-80.0Phosphate [Mass/volume] in Serum or Mahnre9240-69-04 00:37:388.6 mg/dLF2.4-5.1Alkaline phosphatase [Enzymatic activity/volume] in Serum or Ufcyhh2987-09-61 00:37:3878 U/LF46.0-116.0Phosphate [Mass/volume] in Serum or Aebuui0643-30-51 00:37:388.6 mg/dLF2.4-5.1Alkaline phosphatase [Enzymatic activity/volume] in Serum or Xlorax8119-65-19 00:37:3878 U/LF 46.0-116.0CA UVZEBLZKV0261-22-64 06:20:389.2 mg/dLFCA*PO4 EOUHLGE4842-22-37 06:18:2686.5 CalcF21.0-53.0CA/PHOS JBZMMRP3490-63-31 06:18:2686.5 CalcF21.0-53.0 Calcium [Mass/volume] in Serum or Lsixyf3214-56-52 06:17:179.2 mg/dLF8.7-10.4 Parathyrin.intact [Mass/volume] in Serum or Wqliue2318-25-55 01:42:128977 pg/mLF 18.0-80.0Phosphate [Mass/volume] in Serum or Uxzbak4663-79-26 16:33:339.4 mg/dLF 2.4-5.1Alkaline phosphatase [Enzymatic activity/volume] in Serum or Plasma 2023-08-15 16:33:3381 U/LF46.0-116.0CA QNYVASLGR8200-43-82 07:50:448.7 mg/dLFCA RUJJXMWHV6521-61-58 07:50:448.7 mg/dLFCA*PO4 UFEJJKZ2390-48-64 07:27:3077.4 Calc F21.0-53.0CA/PHOS WKEKNQK4923-67-97 07:27:3075.7 CalcF21.0-53.0CA*PO4 CORRCTD 2023-07-12 07:27:3077.4 CalcF21.0-53.0CA/PHOS NKMHQXF8982-15-71 07:27:3075.7 CalcF21.0-53.0Parathyrin.intact [Mass/volume] in Serum or Nbcitv5306-61-75 07:14:292247 pg/mLF18.0-80.0Parathyrin.intact [Mass/volume] in Serum or Plasma 2023-07-12 07:14:324861 pg/mLF18.0-80.0Calcium [Mass/volume] in Serum or Plasma 2023-07-12 07:12:408.5 mg/dLF8.7-10.4Calcium [Mass/volume] in Serum or Plasma 2023-07-12 07:12:408.5 mg/dLF8.7-10.4Phosphate [Mass/volume] in Serum or Plasma 2023-07-12 01:57:338.9 mg/dLF2.4-5.1Alkaline phosphatase [Enzymatic activity/volume] in Serum or Vgtkir3544-23-90 01:57:3365 U/LF46.0-116.0Phosphate [Mass/volume] in Serum or Uenefr7145-36-18 01:57:338.9 mg/dLF2.4-5.1Alkaline phosphatase [Enzymatic activity/volume] in Serum or Gbrnpw9674-21-88 01:57:3365 U/LF46.0-116.0Parathyrin.intact [Mass/volume] in Serum or Lnnweq5950-71-57 05:34:748215 pg/mLF18.0-80.0Parathyrin.intact [Mass/volume] in Serum or Plasma 2023-06-15 05:34:463613 pg/mLF18.0-80.0Parathyrin.intact [Mass/volume] in Serum or Fylrms9356-13-59 05:34:634428 pg/mLF18.0-80.0CA MWJYBFHBV2394-10-92 06:58:26 9.5 mg/dLFCA FFHJHXCBW3230-47-84 06:58:269.5 mg/dLFCA ZABQIZOMS2436-02-75 06:58:269.5 mg/dLFCA/PHOS PFWCEXE3367-85-56 06:56:0276 CalcF21.0-53.0CA*PO4 DJPEUOU6867-07-83 06:56:0276 CalcF21.0-53.0CA/PHOS KABEPXC3720-69-17 06:56:0276 CalcF21.0-53.0CA*PO4 JFSKHBC7678-22-48 06:56:0276 CalcF21.0-53.0CA/PHOS PRODUCT 2023-06-14 06:56:0276 CalcF21.0-53.0CA*PO4 OUJLJHD9340-09-25 06:56:0276 CalcF 21.0-53.0Calcium [Mass/volume] in Serum or Ziddul2503-57-15 06:53:199.5 mg/dLF 8.7-10.4Calcium [Mass/volume] in Serum or Ddmdex2419-06-81 06:53:199.5 mg/dLF 8.7-10.4Calcium [Mass/volume] in Serum or Klnkwx9854-70-41 06:53:199.5 mg/dLF 8.7-10.4Phosphate [Mass/volume] in Serum or Erqylv3043-17-18 05:16:298 mg/dLF 2.4-5.1Alkaline phosphatase [Enzymatic activity/volume] in Serum or Plasma 2023-06-14 05:16:2975 U/LF46.0-116.0Phosphate [Mass/volume] in Serum or Plasma 2023-06-14 05:16:298 mg/dLF2.4-5.1Alkaline phosphatase [Enzymatic activity/volume] in Serum or Syvsya1522-96-54 05:16:2975 U/LF46.0-116.0Alkaline phosphatase [Enzymatic activity/volume] in Serum or Fdhuwh4735-75-03 05:16:2975 U/LF46.0-116.0Phosphate [Mass/volume] in Serum or Gephtz9403-99-10 05:16:298 mg/dLF2.4-5.1Parathyrin.intact [Mass/volume] in Serum or Fwqjyb8912-42-05 08:14:333228 pg/mLF18.0-80.0Parathyrin.intact [Mass/volume] in Serum or Plasma 2023-05-17 08:14:373949 pg/mLF18.0-80.0CA GMCCVOGED2326-01-42 07:29:049.6 mg/dLF CA QGKZXCQWI0186-45-94 07:29:049.6 mg/dLFCA/PHOS XGQNIBN9411-64-33 07:27:2752.8 CalcF21.0-53.0CA*PO4 WKUZDZN7906-08-79 07:27:2752.8 CalcF21.0-53.0CA/PHOS VXVHGFG9381-61-75 07:27:2752.8 CalcF21.0-53.0CA*PO4 OGARTEZ1275-59-75 07:27:27 52.8 CalcF21.0-53.0Calcium [Mass/volume] in Serum or Rtvnlx7925-36-84 07:26:09 9.6 mg/dLF8.7-10.4Calcium [Mass/volume] in Serum or Wxhwdj9586-94-91 07:26:099.6 mg/dLF8.7-10.4Phosphate [Mass/volume] in Serum or Jpizkz6321-73-34 05:03:465.5 mg/dLF2.4-5.1Alkaline phosphatase [Enzymatic activity/volume] in Serum or Plasma 2023-05-17 05:03:4673 U/LF46.0-116.0Phosphate [Mass/volume] in Serum or Plasma 2023-05-17 05:03:465.5 mg/dLF2.4-5.1Alkaline phosphatase [Enzymatic activity/volume] in Serum or Exvplr2212-19-41 05:03:4673 U/LF46.0-116.0CA BRFTPLKAI7645-87-36 09:07:029.5 mg/dLFCA XMZZHLMXS2882-56-57 09:07:029.5 mg/dLF CA*PO4 OSVMVHG1539-96-32 08:31:1252.3 CalcF21.0-53.0CA/PHOS DFPLUQY6139-32-86 08:31:1252.3 CalcF21.0-53.0CA*PO4 KWAJELG4963-34-83 08:31:1252.3 CalcF21.0-53.0 CA/PHOS NRCNXKT7122-69-94 08:31:1252.3 CalcF21.0-53.0Calcium [Mass/volume] in Serum or Dlfboz2894-76-28 08:11:529.5 mg/dLF8.7-10.4Calcium [Mass/volume] in Serum or Jgrnfu6511-20-01 08:11:529.5 mg/dLF8.7-10.4Parathyrin.intact [Mass/volume] in Serum or Ppmzjf8375-11-45 00:28:471387 pg/mLF18.0-80.0 Parathyrin.intact [Mass/volume] in Serum or Wtvruu0745-99-84 00:28:872616 pg/mLF 18.0-80.0Phosphate [Mass/volume] in Serum or Gnicil6714-03-89 21:40:375.5 mg/dLF 2.4-5.1Alkaline phosphatase [Enzymatic activity/volume] in Serum or Plasma 2023-04-12 21:40:3780 U/LF46.0-116.0Phosphate [Mass/volume] in Serum or Plasma 2023-04-12 21:40:375.5 mg/dLF2.4-5.1Alkaline phosphatase [Enzymatic activity/volume] in Serum or Mkothn8211-46-36 21:40:3780 U/LF46.0-116.0CA JRZDFWUCS4256-18-70 13:11:129.5 mg/dLFCA*PO4 RTRRZKP0192-68-62 07:58:5055.1 Calc F21.0-53.0CA/PHOS WGMAOJL0074-82-85 07:58:5053.9 CalcF21.0-53.0Calcium [Mass/volume] in Serum or Xvyiiw1879-67-53 07:53:549.3 mg/dLF8.7-10.4 Parathyrin.intact [Mass/volume] in Serum or Hytepk1013-51-12 06:35:58077 pg/mLF 18.0-80.0Phosphate [Mass/volume] in Serum or Iwoxhr9304-69-21 22:39:335.8 mg/dLF 2.4-5.1Alkaline phosphatase [Enzymatic activity/volume] in Serum or Plasma 2023-03-14 22:39:3370 U/LF46.0-116.0CA*PO4 OAMBJVA7078-61-26 08:26:2772.9 CalcF 21.0-53.0CA/PHOS CDEEMUI8993-09-21 08:26:2772.1 CalcF21.0-53.0CA*PO4 CORRCTD 2023-02-15 08:26:2772.9 CalcF21.0-53.0CA/PHOS WQRXIPR5665-00-75 08:26:2772.1 CalcF21.0-53.0CA*PO4 HCDPPWH0531-42-14 08:26:2772.9 CalcF21.0-53.0CA/PHOS CDTKTTT8133-46-33 08:26:2772.1 CalcF21.0-53.0CA VCWDSMBIU0323-80-31 08:22:079 mg/dLFCA JFALMUIHV7204-21-39 08:22:079 mg/dLFCA BILZGENNQ1196-08-84 08:22:079 mg/dLFCalcium [Mass/volume] in Serum or Cypozg4240-37-56 08:12:288.9 mg/dLF 8.7-10.4Calcium [Mass/volume] in Serum or Rahvdd5739-58-24 08:12:288.9 mg/dLF 8.7-10.4Calcium [Mass/volume] in Serum or Xnsmoy6397-18-02 08:12:288.9 mg/dLF 8.7-10.4Parathyrin.intact [Mass/volume] in Serum or Jamqnm9293-55-01 05:25:29 1123 pg/mLF18.0-80.0Parathyrin.intact [Mass/volume] in Serum or Kwhlne8383-14-98 05:25:251726 pg/mLF18.0-80.0Parathyrin.intact [Mass/volume] in Serum or Plasma 2023-02-15 05:25:563042 pg/mLF18.0-80.0Phosphate [Mass/volume] in Serum or Tnbvkj4588-54-29 00:16:328.1 mg/dLF2.4-5.1Alkaline phosphatase [Enzymatic activity/volume] in Serum or Rcypaj5403-77-38 00:16:3266 U/LF46.0-116.0Phosphate [Mass/volume] in Serum or Fnasob8346-50-91 00:16:328.1 mg/dLF2.4-5.1Alkaline phosphatase [Enzymatic activity/volume] in Serum or Ckwlic6868-31-03 00:16:3266 U/LF46.0-116.0Phosphate [Mass/volume] in Serum or Yjoemq3728-14-19 00:16:328.1 mg/dLF2.4-5.1Alkaline phosphatase [Enzymatic activity/volume] in Serum or Plasma 2023-02-15 00:16:3266 U/LF46.0-116.0Parathyrin.intact [Mass/volume] in Serum or Hpaocp8587-11-63 18:49:26524 pg/mLF18.0-80.0Parathyrin.intact [Mass/volume] in Serum or Yjssuh2849-75-90 18:49:57801 pg/mLF18.0-80.0CA WZXAVJOIE7587-07-11 17:38:439.8 mg/dLFCA TMMUSDFNI0551-49-05 17:38:439.8 mg/dLFCA*PO4 CORRCTD 2023-01-11 17:36:3077.4 CalcF21.0-53.0CA/PHOS HPNJPMH1487-22-66 17:36:3077.4 CalcF21.0-53.0CA/PHOS CCXWLBL3032-04-14 17:36:3077.4 CalcF21.0-53.0CA*PO4 BCFEEZH8958-68-27 17:36:3077.4 CalcF21.0-53.0Calcium [Mass/volume] in Serum or Inrjah0334-28-09 17:35:129.8 mg/dLF8.7-10.4Calcium [Mass/volume] in Serum or Ijsgwn2344-64-83 17:35:129.8 mg/dLF8.7-10.4Phosphate [Mass/volume] in Serum or Oboyec0772-68-62 15:42:377.9 mg/dLF2.4-5.1Alkaline phosphatase [Enzymatic activity/volume] in Serum or Clwffc9508-50-79 15:42:3769 U/LF46.0-116.0Phosphate [Mass/volume] in Serum or Lpnuyi1367-41-31 15:42:377.9 mg/dLF2.4-5.1Alkaline phosphatase [Enzymatic activity/volume] in Serum or Smcthi8454-65-78 15:42:3769 U/LF46.0-116.0CA XZTVNOMDA4475-53-02 08:02:409.4 mg/dLFCA*PO4 FMWXHZM9835-15-91 07:26:3478 CalcF21.0-53.0CA/PHOS BIPEYGQ0969-90-73 07:26:3476.4 CalcF21.0-53.0 Calcium [Mass/volume] in Serum or Gkvubf1618-43-33 07:23:269.2 mg/dLF8.7-10.4 Parathyrin.intact [Mass/volume] in Serum or Esqjgm2582-22-18 07:13:67167 pg/mLF 18.0-80.0Alkaline phosphatase [Enzymatic activity/volume] in Serum or Plasma 2022-12-13 18:16:4266 U/LF46.0-116.0Phosphate [Mass/volume] in Serum or Plasma 2022-12-13 18:16:408.3 mg/dLF2.4-5.1CA RNGEMPTVE4248-50-20 17:35:399.1 mg/dLFCA CIOPJVMNY6231-20-00 17:35:399.1 mg/dLFCA NRUTUBBGP8413-70-06 17:35:399.1 mg/dLF CA*PO4 WSNKAIS1236-65-55 17:33:5166.4 CalcF21.0-53.0CA/PHOS SYLHOSA8597-85-06 17:33:5165 CalcF21.0-53.0CA/PHOS DPBYPFE0931-61-64 17:33:5165 CalcF21.0-53.0 CA*PO4 MRQCKKY5874-00-96 17:33:5166.4 CalcF21.0-53.0CA/PHOS TMGNSDQ8109-08-07 17:33:5165 CalcF21.0-53.0CA*PO4 JPGHGBU1635-79-82 17:33:5166.4 CalcF21.0-53.0 Calcium [Mass/volume] in Serum or Hwpgxj4472-64-09 17:32:198.9 mg/dLF8.7-10.4 Calcium [Mass/volume] in Serum or Xdlvcr4984-69-31 17:32:198.9 mg/dLF8.7-10.4 Calcium [Mass/volume] in Serum or Isokjd7001-71-23 17:32:198.9 mg/dLF8.7-10.4 Phosphate [Mass/volume] in Serum or Hbyxir4438-65-78 15:18:317.3 mg/dLF2.4-5.1 Alkaline phosphatase [Enzymatic activity/volume] in Serum or Ojhzmg3669-36-30 15:18:3167 U/LF46.0-116.0Phosphate [Mass/volume] in Serum or Adtnhg3290-82-45 15:18:317.3 mg/dLF2.4-5.1Alkaline phosphatase [Enzymatic activity/volume] in Serum or Zeahki8217-90-78 15:18:3167 U/LF46.0-116.0Alkaline phosphatase [Enzymatic activity/volume] in Serum or Nznuzt2669-99-29 15:18:3167 U/LF 46.0-116.0Phosphate [Mass/volume] in Serum or Pxnpll7882-26-13 15:18:317.3 mg/dL F2.4-5.1Parathyrin.intact [Mass/volume] in Serum or Hwzzbg4915-54-06 14:54:78823 pg/mLF18.0-80.0Parathyrin.intact [Mass/volume] in Serum or Bjyhoe4117-09-31 14:54:91027 pg/mLF18.0-80.0Parathyrin.intact [Mass/volume] in Serum or Plasma 2022-11-15 14:54:64436 pg/mLF18.0-80.0CA PHGJPHZWQ6441-31-33 05:12:019.6 mg/dLF CA RBFLOSFZM8351-28-37 05:12:019.6 mg/dLFCA*PO4 BSWGKYI5662-84-29 05:02:3675.8 CalcF21.0-53.0CA/PHOS ZNUARKL4503-82-80 05:02:3675.8 CalcF21.0-53.0CA*PO4 QNXQACH1042-40-63 05:02:3675.8 CalcF21.0-53.0CA/PHOS AEKCAXR9678-47-30 05:02:36 75.8 CalcF21.0-53.0Calcium [Mass/volume] in Serum or Cbjeln7259-22-92 04:55:06 9.6 mg/dLF8.7-10.4Calcium [Mass/volume] in Serum or Zbiixk6397-88-21 04:55:069.6 mg/dLF8.7-10.4Parathyrin.intact [Mass/volume] in Serum or Pznkis5180-11-80 02:01:95031 pg/mLF18.0-80.0Parathyrin.intact [Mass/volume] in Serum or Plasma 2022-10-13 02:01:48742 pg/mLF18.0-80.0Phosphate [Mass/volume] in Serum or Plasma 2022-10-13 00:14:267.9 mg/dLF2.4-5.1Alkaline phosphatase [Enzymatic activity/volume] in Serum or Oziwpj7759-51-21 00:14:2670 U/LF46.0-116.0Alkaline phosphatase [Enzymatic activity/volume] in Serum or Qnrplb0085-56-09 00:14:2670 U/LF46.0-116.0Phosphate [Mass/volume] in Serum or Nsonqh0542-51-29 00:14:267.9 mg/dLF2.4-5.1CA XIFBSIGSD7141-86-48 04:49:459.6 mg/dLFCA RRODWYQOG5902-07-74 04:49:459.6 mg/dLFCA LBTKFHSJX6115-57-08 04:49:459.6 mg/dLFCA/PHOS PRODUCT 2022-09-16 04:25:5655.7 CalcF21.0-53.0CA*PO4 BXMSWNG3716-00-66 04:25:5655.7 Calc F21.0-53.0CA/PHOS MHUZJZV1226-96-12 04:25:5655.7 CalcF21.0-53.0CA*PO4 CORRCTD 2022-09-16 04:25:5655.7 CalcF21.0-53.0CA/PHOS PPFLPPJ6871-80-33 04:25:5655.7 CalcF21.0-53.0CA*PO4 TDWLXHJ0471-69-64 04:25:5655.7 CalcF21.0-53.0Calcium [Mass/volume] in Serum or Pxptqb3205-74-69 03:49:399.6 mg/dLF8.7-10.4Calcium [Mass/volume] in Serum or Etjxdl2942-69-16 03:49:399.6 mg/dLF8.7-10.4Calcium [Mass/volume] in Serum or Pgxzuq5365-72-64 03:49:399.6 mg/dLF8.7-10.4Phosphate [Mass/volume] in Serum or Ixpmem6216-43-47 00:43:165.8 mg/dLF2.4-5.1Alkaline phosphatase [Enzymatic activity/volume] in Serum or Kieems1144-25-02 00:43:90785 U/LF46.0-116.0Phosphate [Mass/volume] in Serum or Txqxyk1739-90-98 00:43:165.8 mg/dLF2.4-5.1Alkaline phosphatase [Enzymatic activity/volume] in Serum or Plasma 2022-09-16 00:43:59835 U/LF46.0-116.0Alkaline phosphatase [Enzymatic activity/volume] in Serum or Qiuxnz5788-18-24 00:43:41209 U/LF46.0-116.0 Phosphate [Mass/volume] in Serum or Pdigkh1664-34-76 00:43:165.8 mg/dLF2.4-5.1 Parathyrin.intact [Mass/volume] in Serum or Ahsiew8821-53-88 19:07:90146 pg/mLF 18.0-80.0Parathyrin.intact [Mass/volume] in Serum or Rdscmg1339-02-36 19:07:09 730 pg/mLF18.0-80.0Parathyrin.intact [Mass/volume] in Serum or Gezpbb7842-88-08 19:07:36421 pg/mLF18.0-80.0NutritionDescriptionDraw DateResult/UnitStatusRef RangeResult CommentsPotassium [Moles/volume] in Serum or Nyyaoe7132-68-06 08:18:474.1 mEq/LF3.5-5.5Potassium [Moles/volume] in Serum or Qmvuiv1602-75-68 08:18:474.1 mEq/LF3.5-5.8XUNBXMXT0769-48-68 17:56:252.4 g/dLF0.9-5.0A/G RATIO 2024-04-17 17:56:251.7 CalcF1.0-2.0WJZLWSYK6005-36-67 17:56:252.4 g/dLF0.9-5.0 A/G LDAAE5132-93-38 17:56:251.7 CalcF1.0-2.5Lactate dehydrogenase [Enzymatic activity/volume] in Serum or Qxlnvv2280-30-61 17:54:57794 U/LF120.0-246.0Protein [Mass/volume] in Serum or Uyobyb1758-43-61 17:54:246.5 g/dLF5.7-8.2Bicarbonate [Moles/volume] in Serum or Gijimd6586-41-41 17:54:2424 mEq/LF20.0-31.0Albumin [Mass/volume] in Serum or Plasma by Bromocresol green (BCG) dye binding method 2024-04-17 17:54:244.1 g/dLF3.4-4.8Lactate dehydrogenase [Enzymatic activity/volume] in Serum or Xxaiaf9744-97-90 17:54:85588 U/LF120.0-246.0 Bicarbonate [Moles/volume] in Serum or Ldgqez0388-04-70 17:54:2424 mEq/LF 20.0-31.0Albumin [Mass/volume] in Serum or Plasma by Bromocresol green (BCG) dye binding nioisf0022-79-29 17:54:244.1 g/dLF3.4-4.8Protein [Mass/volume] in Serum or Zcceql2155-65-96 17:54:246.5 g/dLF5.7-8.2Potassium [Moles/volume] in Serum or Lbxdlx3313-88-47 08:07:354 mEq/LF3.5-5.5Potassium [Moles/volume] in Serum or Xvjjic7160-92-56 08:07:354 mEq/LF3.5-5.5Potassium [Moles/volume] in Serum or Omyxwg5757-55-53 08:07:354 mEq/LF3.5-5.5A/G OOKTW2176-23-89 00:21:371.7 CalcF 1.0-2.7VGKQIPQR5054-92-15 00:21:372.4 g/dLF0.9-5.0YENNFHGE5686-58-95 00:21:372.4 g/dLF0.9-5.0A/G YFVRW3750-51-15 00:21:371.7 CalcF1.0-2.6BQJTWUGL4057-77-36 00:21:372.4 g/dLF0.9-5.0A/G SSTEZ1029-62-25 00:21:371.7 CalcF1.0-2.5Lactate dehydrogenase [Enzymatic activity/volume] in Serum or Zczrtu4241-40-29 00:20:18 214 U/LF120.0-246.0Bicarbonate [Moles/volume] in Serum or Sslkji2892-46-96 00:20:1823 mEq/LF20.0-31.0Protein [Mass/volume] in Serum or Iqwtcj3106-94-03 00:20:186.4 g/dLF5.7-8.2Albumin [Mass/volume] in Serum or Plasma by Bromocresol green (BCG) dye binding hvvnqx7809-95-72 00:20:184 g/dLF3.4-4.8Albumin [Mass/volume] in Serum or Plasma by Bromocresol green (BCG) dye binding method 2024-03-13 00:20:184 g/dLF3.4-4.8Lactate dehydrogenase [Enzymatic activity/volume] in Serum or Adnksb1122-77-79 00:20:37963 U/LF120.0-246.0 Bicarbonate [Moles/volume] in Serum or Eookpg7756-72-28 00:20:1823 mEq/LF 20.0-31.0Protein [Mass/volume] in Serum or Cfjokv4611-22-85 00:20:186.4 g/dLF 5.7-8.2Lactate dehydrogenase [Enzymatic activity/volume] in Serum or Plasma 2024-03-13 00:20:33790 U/LF120.0-246.0Bicarbonate [Moles/volume] in Serum or Shvafq9393-49-82 00:20:1823 mEq/LF20.0-31.0Albumin [Mass/volume] in Serum or Plasma by Bromocresol green (BCG) dye binding nzvkgp3307-04-52 00:20:184 g/dLF 3.4-4.8Protein [Mass/volume] in Serum or Hlcvua4876-78-65 00:20:186.4 g/dLF 5.7-8.2Potassium [Moles/volume] in Serum or Spaxwk6234-47-04 07:50:143.7 mEq/LF 3.5-5.5Potassium [Moles/volume] in Serum or Tgvhun6096-69-25 07:50:143.7 mEq/LF 3.5-5.5Potassium [Moles/volume] in Serum or Phxmue0943-19-70 07:50:143.7 mEq/LF 3.5-5.9FWXULSWU3344-77-72 23:59:292.3 g/dLF0.9-5.0A/G TGIIV3931-51-56 23:59:29 1.9 CalcF1.0-2.5KNLITGOO4228-73-18 23:59:292.3 g/dLF0.9-5.0A/G EKAAR4655-48-15 23:59:291.9 CalcF1.0-2.5A/G MJPZX0562-38-00 23:59:291.9 CalcF1.0-2.5GLOBULIN 2024-02-13 23:59:292.3 g/dLF0.9-5.0Lactate dehydrogenase [Enzymatic activity/volume] in Serum or Ynmtez8687-86-46 23:58:08236 U/LF120.0-246.0 Bicarbonate [Moles/volume] in Serum or Xxttjn9085-46-26 23:58:2023 mEq/LF 20.0-31.0Albumin [Mass/volume] in Serum or Plasma by Bromocresol green (BCG) dye binding wdaian7407-76-31 23:58:204.3 g/dLF3.4-4.8Protein [Mass/volume] in Serum or Lnvhld5934-17-69 23:58:206.6 g/dLF5.7-8.2Bicarbonate [Moles/volume] in Serum or Tzywjj9455-42-58 23:58:2023 mEq/LF20.0-31.0Lactate dehydrogenase [Enzymatic activity/volume] in Serum or Eryijf1052-39-73 23:58:29432 U/LF120.0-246.0Albumin [Mass/volume] in Serum or Plasma by Bromocresol green (BCG) dye binding method 2024-02-13 23:58:204.3 g/dLF3.4-4.8Protein [Mass/volume] in Serum or Plasma 2024-02-13 23:58:206.6 g/dLF5.7-8.2Lactate dehydrogenase [Enzymatic activity/volume] in Serum or Hkqjnn7741-56-20 23:58:31825 U/LF120.0-246.0 Bicarbonate [Moles/volume] in Serum or Dgnjwb2318-30-86 23:58:2022 mEq/LF 20.0-31.0Albumin [Mass/volume] in Serum or Plasma by Bromocresol green (BCG) dye binding dvkwai3305-66-13 23:58:204.3 g/dLF3.4-4.8Protein [Mass/volume] in Serum or Shqfvz5887-74-14 23:58:206.6 g/dLF5.7-8.2Potassium [Moles/volume] in Serum or Qfaifw6200-83-48 06:31:043.8 mEq/LF3.5-5.5Potassium [Moles/volume] in Serum or Gtcewc8489-71-74 06:31:043.8 mEq/LF3.5-5.5Potassium [Moles/volume] in Serum or Qamooc9822-28-89 06:31:043.8 mEq/LF3.5-5.5Potassium [Moles/volume] in Serum or Zzcinq3891-54-62 06:31:043.8 mEq/LF3.5-5.3JWDHSOSH2688-79-99 04:55:542.1 g/dL F0.9-5.0A/G JFLRW7497-27-07 04:55:542 CalcF1.0-2.7MIFDHETZ8380-30-94 04:55:542.1 g/dLF0.9-5.0A/G KAGNB6830-31-69 04:55:542 CalcF1.0-2.5A/G ICVVM4251-11-06 04:55:542 CalcF1.0-2.5QCUARKYY6342-64-36 04:55:542.1 g/dLF0.9-5.0GLOBULIN 2024-01-18 04:55:542.1 g/dLF0.9-5.0A/G IHYWU1010-11-47 04:55:542 CalcF1.0-2.5 Lactate dehydrogenase [Enzymatic activity/volume] in Serum or Qkregg0163-27-10 04:55:90048 U/LF120.0-246.0Bicarbonate [Moles/volume] in Serum or Plasma 2024-01-18 04:55:3220 mEq/LF20.0-31.0Albumin [Mass/volume] in Serum or Plasma by Bromocresol green (BCG) dye binding akfnsr9674-36-73 04:55:324.1 g/dLF3.4-4.8 Protein [Mass/volume] in Serum or Arbzfd6404-03-04 04:55:326.2 g/dLF5.7-8.2 Albumin [Mass/volume] in Serum or Plasma by Bromocresol green (BCG) dye binding odiqov0676-81-73 04:55:324.1 g/dLF3.4-4.8Lactate dehydrogenase [Enzymatic activity/volume] in Serum or Ecethh8757-20-43 04:55:12572 U/LF120.0-246.0 Bicarbonate [Moles/volume] in Serum or Xkfqjq4190-53-96 04:55:3220 mEq/LF 20.0-31.0Protein [Mass/volume] in Serum or Bvbarv7116-12-86 04:55:326.2 g/dLF 5.7-8.2Albumin [Mass/volume] in Serum or Plasma by Bromocresol green (BCG) dye binding jkrnae0569-95-03 04:55:324.1 g/dLF3.4-4.8Lactate dehydrogenase [Enzymatic activity/volume] in Serum or Xnkoae3540-66-48 04:55:03811 U/LF 120.0-246.0Bicarbonate [Moles/volume] in Serum or Pptwdn5660-92-15 04:55:3220 mEq/LF20.0-31.0Protein [Mass/volume] in Serum or Grjipd0670-19-69 04:55:326.2 g/dLF5.7-8.2Lactate dehydrogenase [Enzymatic activity/volume] in Serum or Plasma 2024-01-18 04:55:55702 U/LF120.0-246.0Bicarbonate [Moles/volume] in Serum or Csbifd3444-21-56 04:55:3220 mEq/LF20.0-31.0Albumin [Mass/volume] in Serum or Plasma by Bromocresol green (BCG) dye binding blofbn4606-83-89 04:55:324.1 g/dLF 3.4-4.8Protein [Mass/volume] in Serum or Vhzwim5840-02-61 04:55:326.2 g/dLF 5.7-8.2Potassium [Moles/volume] in Serum or Umtnnd1329-72-67 06:20:463.5 mEq/LF 3.5-5.5Potassium [Moles/volume] in Serum or Wufwfp9751-43-87 06:20:463.5 mEq/LF 3.5-5.0YHURDNUP9597-28-91 23:07:281.9 g/dLF0.9-5.0A/G TPWCE3374-96-43 23:07:28 2.1 CalcF1.0-2.8EGCFYBPX0106-13-58 23:07:281.9 g/dLF0.9-5.0A/G AVFSA5302-09-10 23:07:282.1 CalcF1.0-2.5Albumin [Mass/volume] in Serum or Plasma by Bromocresol green (BCG) dye binding wwvoii2249-01-71 23:07:124 g/dLF3.4-4.8Lactate dehydrogenase [Enzymatic activity/volume] in Serum or Xhpbxw6996-22-61 23:07:12 200 U/LF120.0-246.0Bicarbonate [Moles/volume] in Serum or Dpgtet1473-77-02 23:07:1224 mEq/LF20.0-31.0Protein [Mass/volume] in Serum or Snskvl4602-26-23 23:07:125.9 g/dLF5.7-8.2Lactate dehydrogenase [Enzymatic activity/volume] in Serum or Kndcit1957-72-38 23:07:85165 U/LF120.0-246.0Bicarbonate [Moles/volume] in Serum or Obnogy6992-49-08 23:07:1224 mEq/LF20.0-31.0Albumin [Mass/volume] in Serum or Plasma by Bromocresol green (BCG) dye binding oitbdg8342-96-15 23:07:12 4 g/dLF3.4-4.8Protein [Mass/volume] in Serum or Qyutpr1109-24-41 23:07:125.9 g/dLF5.7-8.2Potassium [Moles/volume] in Serum or Cpvzbg5875-26-51 06:47:453.7 mEq/LF3.5-5.5Potassium [Moles/volume] in Serum or Nwveye8992-36-90 06:47:453.7 mEq/LF3.5-5.5Folate [Mass/volume] in Serum or Lnlxyf3244-65-91 03:59:519.6 ng/mL F5.5-16.0Folate [Mass/volume] in Serum or Exdizv6739-98-51 03:59:519.6 ng/mLF 5.5-16.3MVKQYXWN2260-37-96 15:58:002.1 g/dLF0.9-5.0A/G UJTHK2374-14-30 15:58:00 1.9 CalcF1.0-2.5A/G NCBBU8356-49-99 15:58:001.9 CalcF1.0-2.0OSIRKZBF9991-91-01 15:58:002.1 g/dLF0.9-5.0Lactate dehydrogenase [Enzymatic activity/volume] in Serum or Wjxblf2620-41-73 15:57:43531 U/LF120.0-246.0Bicarbonate [Moles/volume] in Serum or Qnuetm6538-14-91 15:57:4025 mEq/LF20.0-31.0Albumin [Mass/volume] in Serum or Plasma by Bromocresol green (BCG) dye binding spmfye3645-62-31 15:57:40 3.9 g/dLF3.4-4.8Protein [Mass/volume] in Serum or Mguizp2422-72-57 15:57:406 g/dLF5.7-8.2Bicarbonate [Moles/volume] in Serum or Yphaxe0966-39-13 15:57:4025 mEq/LF20.0-31.0Protein [Mass/volume] in Serum or Ifstbr2448-57-53 15:57:406 g/dL F5.7-8.2Lactate dehydrogenase [Enzymatic activity/volume] in Serum or Plasma 2023-11-14 15:57:03858 U/LF120.0-246.0Albumin [Mass/volume] in Serum or Plasma by Bromocresol green (BCG) dye binding leiybu7222-48-00 15:57:403.9 g/dLF3.4-4.8 Potassium [Moles/volume] in Serum or Okiiru4707-60-63 07:15:513.8 mEq/LF3.5-5.5 Potassium [Moles/volume] in Serum or Pgwiox3906-18-55 07:15:513.8 mEq/LF3.5-5.5 RQICZJGP2845-42-58 17:23:442.2 g/dLF0.9-5.0A/G MXVRA6515-46-44 17:23:441.9 CalcF 1.0-2.9TTOGWRGR6173-06-35 17:23:442.2 g/dLF0.9-5.0A/G RVSBO1369-13-05 17:23:44 1.9 CalcF1.0-2.5Lactate dehydrogenase [Enzymatic activity/volume] in Serum or Frqrhy2161-08-77 17:22:58133 U/LF120.0-246.0Bicarbonate [Moles/volume] in Serum or Yqilxr3252-80-90 17:22:3221 mEq/LF20.0-31.0Albumin [Mass/volume] in Serum or Plasma by Bromocresol green (BCG) dye binding wygcgy1620-34-62 17:22:324.2 g/dLF 3.4-4.8Protein [Mass/volume] in Serum or Tqdllw0539-87-03 17:22:326.4 g/dLF 5.7-8.2Lactate dehydrogenase [Enzymatic activity/volume] in Serum or Plasma 2023-10-12 17:22:22237 U/LF120.0-246.0Bicarbonate [Moles/volume] in Serum or Rxtkag9137-76-18 17:22:3221 mEq/LF20.0-31.0Albumin [Mass/volume] in Serum or Plasma by Bromocresol green (BCG) dye binding gzjilu9475-88-60 17:22:324.2 g/dLF 3.4-4.8Protein [Mass/volume] in Serum or Dnswwa9367-57-51 17:22:326.4 g/dLF 5.7-8.2Potassium [Moles/volume] in Serum or Gmdzbq1093-04-21 07:13:423.2 mEq/LF 3.5-5.5Potassium [Moles/volume] in Serum or Oeivaq3112-63-71 07:13:423.2 mEq/LF 3.5-5.9OJFSUOVC6726-99-83 00:38:472.3 g/dLF0.9-5.0A/G TUGPI3019-87-96 00:38:47 1.8 CalcF1.0-2.0ACCRBGIY5877-63-13 00:38:472.3 g/dLF0.9-5.0A/G HODHE8358-51-86 00:38:471.8 CalcF1.0-2.5Lactate dehydrogenase [Enzymatic activity/volume] in Serum or Rtthnh6755-90-78 00:37:00355 U/LF120.0-246.0Bicarbonate [Moles/volume] in Serum or Vvexhp5685-37-80 00:37:3821 mEq/LF20.0-31.0Albumin [Mass/volume] in Serum or Plasma by Bromocresol green (BCG) dye binding zzazct3341-07-43 00:37:38 4.1 g/dLF3.4-4.8Protein [Mass/volume] in Serum or Mxdnei4647-66-62 00:37:386.4 g/dLF5.7-8.2Lactate dehydrogenase [Enzymatic activity/volume] in Serum or Plasma 2023-09-13 00:37:73466 U/LF120.0-246.0Bicarbonate [Moles/volume] in Serum or Qavnxg8624-25-47 00:37:3821 mEq/LF20.0-31.0Albumin [Mass/volume] in Serum or Plasma by Bromocresol green (BCG) dye binding eqxlkj1223-74-27 00:37:384.1 g/dLF 3.4-4.8Protein [Mass/volume] in Serum or Orhdkp8938-15-66 00:37:386.4 g/dLF 5.7-8.2Potassium [Moles/volume] in Serum or Srwhrt3651-74-49 19:19:253.7 mEq/LF 3.5-5.9KWQIXPKH6589-07-86 16:34:202.4 g/dLF0.9-5.0A/G ZWSPA3545-00-10 16:34:20 1.7 CalcF1.0-2.5Lactate dehydrogenase [Enzymatic activity/volume] in Serum or Wtmcjc6675-75-37 16:33:63754 U/LF120.0-246.0Bicarbonate [Moles/volume] in Serum or Slxfku4742-48-46 16:33:3323 mEq/LF20.0-31.0Albumin [Mass/volume] in Serum or Plasma by Bromocresol green (BCG) dye binding egoxmt4655-58-34 16:33:334.1 g/dLF 3.4-4.8Protein [Mass/volume] in Serum or Zmxocz5127-45-90 16:33:336.5 g/dLF 5.7-8.2Potassium [Moles/volume] in Serum or Urekdv1957-99-92 07:12:324 mEq/LF 3.5-5.5Potassium [Moles/volume] in Serum or Uhteqz4181-89-59 07:12:324 mEq/LF 3.5-5.8XNRWFKLL7637-31-75 01:58:222.4 g/dLF0.9-5.0A/G FOYKS0133-54-24 01:58:22 1.5 CalcF1.0-2.2MEIOGFCQ7054-79-54 01:58:222.4 g/dLF0.9-5.0A/G XGVBH3914-12-68 01:58:221.5 CalcF1.0-2.5Albumin [Mass/volume] in Serum or Plasma by Bromocresol green (BCG) dye binding ywswwz5668-01-83 01:57:333.7 g/dLF3.4-4.8Lactate dehydrogenase [Enzymatic activity/volume] in Serum or Fewtpa1276-71-71 01:57:33 201 U/LF120.0-246.0Bicarbonate [Moles/volume] in Serum or Fhxbpp0965-59-79 01:57:3321 mEq/LF20.0-31.0Protein [Mass/volume] in Serum or Enajfb8975-84-86 01:57:336.1 g/dLF5.7-8.2Lactate dehydrogenase [Enzymatic activity/volume] in Serum or Qhcepy9083-66-92 01:57:71883 U/LF120.0-246.0Bicarbonate [Moles/volume] in Serum or Xptycu6173-49-99 01:57:3321 mEq/LF20.0-31.0Albumin [Mass/volume] in Serum or Plasma by Bromocresol green (BCG) dye binding syncmb6835-11-10 01:57:33 3.7 g/dLF3.4-4.8Protein [Mass/volume] in Serum or Grhsfg0929-52-47 01:57:336.1 g/dLF5.7-8.2Potassium [Moles/volume] in Serum or Maapty0876-47-48 06:53:193.6 mEq/LF3.5-5.5Potassium [Moles/volume] in Serum or Shcbkq2487-30-72 06:53:193.6 mEq/LF3.5-5.5Potassium [Moles/volume] in Serum or Yvalqg3347-13-37 06:53:193.6 mEq/LF3.5-5.3YKNYFXKJ4968-33-05 05:16:472.4 g/dLF0.9-5.0A/G KNOZN1576-88-63 05:16:471.7 CalcF1.0-2.5A/G UFFCM7607-66-26 05:16:471.7 CalcF1.0-2.5GLOBULIN 2023-06-14 05:16:472.4 g/dLF0.9-5.0A/G MITUR3060-65-12 05:16:471.7 CalcF1.0-2.5 GNRHLUVM6722-51-67 05:16:472.4 g/dLF0.9-5.0Lactate dehydrogenase [Enzymatic activity/volume] in Serum or Auaifo9132-06-30 05:16:07770 U/LF120.0-246.0 Bicarbonate [Moles/volume] in Serum or Zlbqmu1107-68-66 05:16:2922 mEq/LF 20.0-31.0Albumin [Mass/volume] in Serum or Plasma by Bromocresol green (BCG) dye binding idsoma1840-46-56 05:16:294.1 g/dLF3.4-4.8Protein [Mass/volume] in Serum or Mdkqvk3016-62-80 05:16:296.5 g/dLF5.7-8.2Lactate dehydrogenase [Enzymatic activity/volume] in Serum or Hoodwd6704-05-78 05:16:47181 U/LF120.0-246.0 Bicarbonate [Moles/volume] in Serum or Haxeqw0627-98-53 05:16:2922 mEq/LF 20.0-31.0Albumin [Mass/volume] in Serum or Plasma by Bromocresol green (BCG) dye binding yxuktb1952-85-35 05:16:294.1 g/dLF3.4-4.8Protein [Mass/volume] in Serum or Umlalj0640-90-23 05:16:296.5 g/dLF5.7-8.2Protein [Mass/volume] in Serum or Yabzrr2435-79-46 05:16:296.5 g/dLF5.7-8.2Albumin [Mass/volume] in Serum or Plasma by Bromocresol green (BCG) dye binding stzyuf7729-09-45 05:16:294.1 g/dLF 3.4-4.8Lactate dehydrogenase [Enzymatic activity/volume] in Serum or Plasma 2023-06-14 05:16:91532 U/LF120.0-246.0Bicarbonate [Moles/volume] in Serum or Gcczcl7542-31-73 05:16:2922 mEq/LF20.0-31.0Potassium [Moles/volume] in Serum or Fzkkmd2856-12-12 07:26:093.3 mEq/LF3.5-5.5Potassium [Moles/volume] in Serum or Snycyb6841-10-06 07:26:093.3 mEq/LF3.5-5.5A/G JJUTL4733-59-82 05:04:071.6 CalcF 1.0-2.5A/G EXGCG0071-38-46 05:04:071.6 CalcF1.0-2.5QJNOUAJI1645-31-33 05:04:07 2.7 g/dLF0.9-5.2FKRHHWQA5898-35-06 05:04:072.7 g/dLF0.9-5.0Lactate dehydrogenase [Enzymatic activity/volume] in Serum or Achomf1470-82-17 05:03:55928 U/LF 120.0-246.0Bicarbonate [Moles/volume] in Serum or Ncuyzn4414-91-49 05:03:4623 mEq/LF20.0-31.0Albumin [Mass/volume] in Serum or Plasma by Bromocresol green (BCG) dye binding boaroh0397-59-31 05:03:464.3 g/dLF3.4-4.8Protein [Mass/volume] in Serum or Kzlhuj3329-64-83 05:03:467 g/dLF5.7-8.2Lactate dehydrogenase [Enzymatic activity/volume] in Serum or Upxgcu5508-72-21 05:03:01050 U/LF 120.0-246.0Bicarbonate [Moles/volume] in Serum or Efmudz9457-03-93 05:03:4623 mEq/LF20.0-31.0Albumin [Mass/volume] in Serum or Plasma by Bromocresol green (BCG) dye binding ddvirw7601-61-70 05:03:464.3 g/dLF3.4-4.8Protein [Mass/volume] in Serum or Idmgcp3735-91-35 05:03:467 g/dLF5.7-8.2Potassium [Moles/volume] in Serum or Mtbbnc6964-88-38 08:11:523.7 mEq/LF3.5-5.5Potassium [Moles/volume] in Serum or Lvafde9785-14-46 08:11:523.7 mEq/LF3.5-5.6LIWILUSA7380-52-44 21:41:05 2.6 g/dLF0.9-5.0A/G ABRHV2275-46-42 21:41:051.7 CalcF1.0-2.5A/G ATMNX3540-22-73 21:41:051.7 CalcF1.0-2.8IOATEBZG1425-50-38 21:41:052.6 g/dLF0.9-5.0Lactate dehydrogenase [Enzymatic activity/volume] in Serum or Dloiyq2766-95-15 21:40:37 207 U/LF120.0-246.0Bicarbonate [Moles/volume] in Serum or Exmsyg4591-45-33 21:40:3723 mEq/LF20.0-31.0Albumin [Mass/volume] in Serum or Plasma by Bromocresol green (BCG) dye binding gsrunt8497-06-30 21:40:374.4 g/dLF3.4-4.8 Protein [Mass/volume] in Serum or Ivdcry2333-96-08 21:40:377 g/dLF5.7-8.2Lactate dehydrogenase [Enzymatic activity/volume] in Serum or Wocvyx3592-84-81 21:40:37 207 U/LF120.0-246.0Bicarbonate [Moles/volume] in Serum or Drvmpz9303-46-35 21:40:3723 mEq/LF20.0-31.0Albumin [Mass/volume] in Serum or Plasma by Bromocresol green (BCG) dye binding tfljry3689-55-44 21:40:374.4 g/dLF3.4-4.8 Protein [Mass/volume] in Serum or Mubvxl9108-59-17 21:40:377 g/dLF5.7-8.2 IHMDFKUK5954-75-50 07:58:502.3 g/dLF0.9-5.0A/G TCEPI1673-31-20 07:58:501.7 CalcF 1.0-2.5Potassium [Moles/volume] in Serum or Qerdwf5392-74-11 07:53:503.8 mEq/LF 3.5-5.5Lactate dehydrogenase [Enzymatic activity/volume] in Serum or Plasma 2023-03-14 22:39:62103 U/LF120.0-246.0Bicarbonate [Moles/volume] in Serum or Evlcoh5772-72-90 22:39:3325 mEq/LF20.0-31.0Albumin [Mass/volume] in Serum or Plasma by Bromocresol green (BCG) dye binding zwehdw3488-50-01 22:39:333.8 g/dLF 3.4-4.8Protein [Mass/volume] in Serum or Miqtyk4366-26-83 22:39:336.1 g/dLF 5.7-8.4TOHTDMML7003-59-63 00:17:192.3 g/dLF0.9-5.0A/G RYJOT6857-36-19 00:17:19 1.7 CalcF1.0-2.3IACJJCFC7794-16-43 00:17:192.3 g/dLF0.9-5.0A/G SHVYO2219-02-84 00:17:191.7 CalcF1.0-2.5A/G UOXDF1794-87-28 00:17:191.7 CalcF1.0-2.5GLOBULIN 2023-02-15 00:17:192.3 g/dLF0.9-5.0Lactate dehydrogenase [Enzymatic activity/volume] in Serum or Bhuujl6024-28-64 00:16:74957 U/LF120.0-246.0 Bicarbonate [Moles/volume] in Serum or Rfbrjc7703-57-10 00:16:3220 mEq/LF 20.0-31.0Albumin [Mass/volume] in Serum or Plasma by Bromocresol green (BCG) dye binding ytnfjt9403-86-79 00:16:323.9 g/dLF3.4-4.8Potassium [Moles/volume] in Serum or Pvihpf7444-14-12 00:16:323.8 mEq/LF3.5-5.5Protein [Mass/volume] in Serum or Bghhuu3528-80-02 00:16:326.2 g/dLF5.7-8.2Lactate dehydrogenase [Enzymatic activity/volume] in Serum or Zfhoxt1590-11-47 00:16:45478 U/LF 120.0-246.0Bicarbonate [Moles/volume] in Serum or Jdmkhm6157-90-88 00:16:3220 mEq/LF20.0-31.0Albumin [Mass/volume] in Serum or Plasma by Bromocresol green (BCG) dye binding xutbvw6679-82-65 00:16:323.9 g/dLF3.4-4.8Potassium [Moles/volume] in Serum or Fdcync1454-71-94 00:16:323.8 mEq/LF3.5-5.5Protein [Mass/volume] in Serum or Zpmnsg1958-55-80 00:16:326.2 g/dLF5.7-8.2Lactate dehydrogenase [Enzymatic activity/volume] in Serum or Woksvh4909-18-67 00:16:32 175 U/LF120.0-246.0Bicarbonate [Moles/volume] in Serum or Ikwgvb1617-20-08 00:16:3220 mEq/LF20.0-31.0Potassium [Moles/volume] in Serum or Yzohjo2946-56-09 00:16:323.8 mEq/LF3.5-5.5Protein [Mass/volume] in Serum or Tnoypa2661-25-57 00:16:326.2 g/dLF5.7-8.2Albumin [Mass/volume] in Serum or Plasma by Bromocresol green (BCG) dye binding kwmcvv9209-34-46 00:16:323.9 g/dLF3.4-4.8GLOBULIN 2023-01-11 15:44:072.5 g/dLF0.9-5.0A/G GMLLJ4147-83-66 15:44:071.6 CalcF1.0-2.5 GVNFUHHD4593-77-15 15:44:072.5 g/dLF0.9-5.0A/G ESPRD4913-39-83 15:44:071.6 CalcF 1.0-2.5Bicarbonate [Moles/volume] in Serum or Qhkmyz9491-19-06 15:42:3722 mEq/LF 20.0-31.0Albumin [Mass/volume] in Serum or Plasma by Bromocresol green (BCG) dye binding nqdjop2556-27-01 15:42:374.1 g/dLF3.4-4.8Protein [Mass/volume] in Serum or Wgyvnp2052-18-91 15:42:376.6 g/dLF5.7-8.2Lactate dehydrogenase [Enzymatic activity/volume] in Serum or Hhvevl5334-18-52 15:42:73724 U/LF120.0-246.0 Potassium [Moles/volume] in Serum or Uexhdk6941-77-67 15:42:374.2 mEq/LF3.5-5.5 Lactate dehydrogenase [Enzymatic activity/volume] in Serum or Boiicq0311-30-72 15:42:72444 U/LF120.0-246.0Bicarbonate [Moles/volume] in Serum or Plasma 2023-01-11 15:42:3722 mEq/LF20.0-31.0Albumin [Mass/volume] in Serum or Plasma by Bromocresol green (BCG) dye binding vtlqux7996-71-08 15:42:374.1 g/dLF3.4-4.8 Potassium [Moles/volume] in Serum or Algqkg6902-85-94 15:42:374.2 mEq/LF3.5-5.5 Protein [Mass/volume] in Serum or Dylqjj7145-58-02 15:42:376.6 g/dLF5.7-8.2 FNFYLWHK3974-41-39 18:17:122.3 g/dLF0.9-5.0A/G FZRUQ5175-25-34 18:17:121.7 CalcF 1.0-2.5Lactate dehydrogenase [Enzymatic activity/volume] in Serum or Plasma 2022-12-13 18:16:94393 U/LF120.0-246.0Bicarbonate [Moles/volume] in Serum or Wxnolo9789-32-73 18:16:4019 mEq/LF20.0-31.0Albumin [Mass/volume] in Serum or Plasma by Bromocresol green (BCG) dye binding qyrclz6196-57-50 18:16:403.8 g/dLF 3.4-4.8Potassium [Moles/volume] in Serum or Lgpguy0615-57-78 18:16:403.8 mEq/LF 3.5-5.5Protein [Mass/volume] in Serum or Vwjquu8471-42-11 18:16:406.1 g/dLF 5.7-8.2Folate [Mass/volume] in Serum or Vivznf2552-49-86 19:48:338 ng/mLF 5.5-16.0Folate [Mass/volume] in Serum or Bupfpx1287-24-61 19:48:338 ng/mLF 5.5-16.0Folate [Mass/volume] in Serum or Ummfir1952-72-50 19:48:338 ng/mLF 5.5-16.3MUOIZNSS8129-07-58 15:18:552.2 g/dLF0.9-5.0A/G YXVDZ4916-69-02 15:18:55 1.7 CalcF1.0-2.3QGMGMZJM1160-20-27 15:18:552.2 g/dLF0.9-5.0A/G UCFGJ6975-37-48 15:18:551.7 CalcF1.0-2.5A/G MLYJW2070-88-63 15:18:551.7 CalcF1.0-2.5GLOBULIN 2022-11-15 15:18:552.2 g/dLF0.9-5.0Lactate dehydrogenase [Enzymatic activity/volume] in Serum or Vbayld6072-55-79 15:18:75679 U/LF120.0-246.0 Bicarbonate [Moles/volume] in Serum or Kimvve1789-68-11 15:18:3122 mEq/LF 20.0-31.0Potassium [Moles/volume] in Serum or Spegrb1577-04-87 15:18:313.8 mEq/L F3.5-5.5Albumin [Mass/volume] in Serum or Plasma by Bromocresol green (BCG) dye binding aqpspt6624-99-00 15:18:313.7 g/dLF3.4-4.8Protein [Mass/volume] in Serum or Dmbwsr2980-25-28 15:18:315.9 g/dLF5.7-8.2Lactate dehydrogenase [Enzymatic activity/volume] in Serum or Jvyrcs0183-34-47 15:18:35006 U/LF120.0-246.0 Bicarbonate [Moles/volume] in Serum or Vmhxmt2894-37-64 15:18:3122 mEq/LF 20.0-31.0Albumin [Mass/volume] in Serum or Plasma by Bromocresol green (BCG) dye binding jixfnk1727-51-32 15:18:313.7 g/dLF3.4-4.8Potassium [Moles/volume] in Serum or Plpcch0762-51-84 15:18:313.8 mEq/LF3.5-5.5Protein [Mass/volume] in Serum or Bjmpyb4288-21-80 15:18:315.9 g/dLF5.7-8.2Albumin [Mass/volume] in Serum or Plasma by Bromocresol green (BCG) dye binding qijzfr7275-02-53 15:18:313.7 g/dLF3.4-4.8Bicarbonate [Moles/volume] in Serum or Chotkx9153-96-90 15:18:3122 mEq/LF20.0-31.0Protein [Mass/volume] in Serum or Fiunvn5123-45-59 15:18:315.9 g/dLF5.7-8.2Lactate dehydrogenase [Enzymatic activity/volume] in Serum or Plasma 2022-11-15 15:18:41943 U/LF120.0-246.0Potassium [Moles/volume] in Serum or Wvypxv8139-36-84 15:18:313.8 mEq/LF3.5-5.3UENBRGBF5161-66-33 00:15:432.2 g/dLF 0.9-5.0A/G HVYGJ8430-95-88 00:15:431.8 CalcF1.0-2.5A/G UHTSR7179-18-74 00:15:43 1.8 CalcF1.0-2.8KPCFTMUR1101-88-35 00:15:432.2 g/dLF0.9-5.0Lactate dehydrogenase [Enzymatic activity/volume] in Serum or Yqrwup6032-22-21 00:14:58285 U/LF 120.0-246.0Bicarbonate [Moles/volume] in Serum or Mqqset2545-80-26 00:14:2617 mEq/LF20.0-31.0Albumin [Mass/volume] in Serum or Plasma by Bromocresol green (BCG) dye binding yulmfr9447-79-67 00:14:264 g/dLF3.4-4.8Potassium [Moles/volume] in Serum or Fcucxy6534-19-34 00:14:264.1 mEq/LF3.5-5.5Protein [Mass/volume] in Serum or Zdmxrw9840-50-63 00:14:266.2 g/dLF5.7-8.2Lactate dehydrogenase [Enzymatic activity/volume] in Serum or Dsnniy9762-32-58 00:14:26 186 U/LF120.0-246.0Bicarbonate [Moles/volume] in Serum or Gntjnw1085-87-12 00:14:2617 mEq/LF20.0-31.0Albumin [Mass/volume] in Serum or Plasma by Bromocresol green (BCG) dye binding zlkkke5239-22-66 00:14:264 g/dLF3.4-4.8 Potassium [Moles/volume] in Serum or Phmqdn4742-49-30 00:14:264.1 mEq/LF3.5-5.5 Protein [Mass/volume] in Serum or Zkmmir7147-03-13 00:14:266.2 g/dLF5.7-8.2 VLDL-CHOL(CALC)2022-09-16 00:44:0653 mg/dLF0.0-29.0A/G RPKOG6047-40-46 00:44:06 1.7 CalcF1.0-2.8GTMWIYLM0162-20-34 00:44:062.4 g/dLF0.9-5.0LDL-CHOLESTEROL 2022-09-16 00:44:0656 mg/dLF0.0-99.0CHOL/HDL CYZLE5801-84-49 00:44:063.5 CalcF 3.3-5.0VLDL-CHOL(CALC)2022-09-16 00:44:0653 mg/dLF0.0-29.0LDL-CHOLESTEROL 2022-09-16 00:44:0656 mg/dLF0.0-99.1QPMAZRIA7648-06-65 00:44:062.4 g/dLF0.9-5.0 A/G XTGBG8975-26-61 00:44:061.7 CalcF1.0-2.5CHOL/HDL TWMLF5571-46-58 00:44:063.5 CalcF3.3-5.0VLDL-CHOL(CALC)2022-09-16 00:44:0653 mg/dLF0.0-29.0GLOBULIN 2022-09-16 00:44:062.4 g/dLF0.9-5.0CHOL/HDL NQAXE8394-69-46 00:44:063.5 CalcF 3.3-5.4THV-DNQFNMXGJXK0758-96-17 00:44:0656 mg/dLF0.0-99.0A/G TLIOR0302-71-86 00:44:061.7 CalcF1.0-2.5Protein [Mass/volume] in Serum or Rgwtlv0499-29-03 00:43:44066 mg/dLF0.0-149.0Cholesterol [Mass/volume] in Serum or Plasma 2022-09-16 00:43:28159 mg/dLF0.0-199.0Lactate dehydrogenase [Enzymatic activity/volume] in Serum or Psmpka8400-22-08 00:43:42977 U/LF120.0-246.0 Bicarbonate [Moles/volume] in Serum or Plinjw8593-65-48 00:43:1623 mEq/LF 20.0-31.0Albumin [Mass/volume] in Serum or Plasma by Bromocresol green (BCG) dye binding cecoxc3406-36-70 00:43:164 g/dLF3.4-4.8Potassium [Moles/volume] in Serum or Culmvx4719-25-03 00:43:164.4 mEq/LF3.5-5.5Protein [Mass/volume] in Serum or Ucddlk1624-54-48 00:43:166.4 g/dLF5.7-8.2Cholesterol in HDL [Mass/volume] in Serum or Txzhis6043-02-01 00:43:1643 mg/dLF40.0-60.0Protein [Mass/volume] in Serum or Vhqhbg2792-44-13 00:43:49704 mg/dLF0.0-149.0 Cholesterol [Mass/volume] in Serum or Bestok5780-15-45 00:43:88678 mg/dLF 0.0-199.0Lactate dehydrogenase [Enzymatic activity/volume] in Serum or Plasma 2022-09-16 00:43:32793 U/LF120.0-246.0Bicarbonate [Moles/volume] in Serum or Plgsuq9475-02-52 00:43:1623 mEq/LF20.0-31.0Albumin [Mass/volume] in Serum or Plasma by Bromocresol green (BCG) dye binding bmjaso8787-67-97 00:43:164 g/dLF 3.4-4.8Potassium [Moles/volume] in Serum or Zilone4401-11-24 00:43:164.4 mEq/LF 3.5-5.5Cholesterol in HDL [Mass/volume] in Serum or Nqathr6965-40-19 00:43:1643 mg/dLF40.0-60.0Protein [Mass/volume] in Serum or Gwgikw3479-34-06 00:43:166.4 g/dLF5.7-8.2Lactate dehydrogenase [Enzymatic activity/volume] in Serum or Plasma 2022-09-16 00:43:53489 U/LF120.0-246.0Albumin [Mass/volume] in Serum or Plasma by Bromocresol green (BCG) dye binding kfygrp4426-52-25 00:43:164 g/dLF3.4-4.8 Potassium [Moles/volume] in Serum or Prmsbr4478-61-61 00:43:164.4 mEq/LF3.5-5.5 Cholesterol in HDL [Mass/volume] in Serum or Hkeexh6073-36-18 00:43:1643 mg/dLF 40.0-60.0Protein [Mass/volume] in Serum or Bdcmvs8462-62-89 00:43:04525 mg/dLF 0.0-149.0Cholesterol [Mass/volume] in Serum or Dkynds1482-77-05 00:43:27777 mg/dLF0.0-199.0Bicarbonate [Moles/volume] in Serum or Pvfbtq0440-42-20 00:43:16 23 mEq/LF20.0-31.0Protein [Mass/volume] in Serum or Muqmxw6831-22-20 00:43:166.4 g/dLF5.7-8.2 Encounters No encounter information to report Immunizations Ordered Immunization Name Filled Immunization Name Date Status Comments Refusal Reason Hep B, adult 2024-02-16 15:16:14Influenza, MDCK, trivalent, qhpsaqbowlhk2141-51-59 12:33:03 Hep B, vyhkh9715-84-65 14:15:19Hep B, shlhe7160-31-02 14:13:43TST-PPD txvilnobatp2414-46-33 14:01:13Hep B, otphg0082-02-34 14:14:46Hep B, adult 2023-01-16 15:03:39Hep B, mfnor9867-77-80 13:16:55TB JDQ3691-20-15 04:00:00 Hepatitis B Rwtcsiyscdp5332-64-58 04:00:00Pneumococcal conjugate PCV20, polysaccharide FXA004 conjugate, adjuvant, BT2948-58-99 04:00:00Influenza Vsglamcohrl6483-76-51 04:00:00
--- OUTSIDE RECORDS SUMMARY | 2025-02-04 18:07 | XMS_ITS | Clinical Summary ---
Author Organization [facility] Address [address] [place] [address] Care Team Providers Care Ad Terminal Makeup Operator Name Role Phone Bhavana Roland APRN-SENIOR PAYROLL ADMINISTRATOR Unavailable Rayshawn Shabazz MD Primary Care Provider [phone] Allergies Active AllergyReactionsCriticalityNoted DateCommentsAmoxicillinNausea And Vomiting,Nausea Only08/26/2018 Other reaction(s): Nausea EscitalopramNausea Only03/28/2021 Other reaction(s): Unknown Other reaction(s): Unknown Medications MedicationSigDispense QuantityRefillsLast FilledStart DateEnd DateStatus pantoprazole (ProtoNix) 40 MG EC tablet Take 40 mg by mouth in the morning. Take before meals.03/13/2022ctive potassium chloride CR (Klor-Con M10) 10 MEQ ER tablet Take 10 mEq by mouth in the morning.Active amLODIPine (Norvasc) 10 MG tablet Indications:Primary hypertensionTake 1 tablet (10 mg) by mouth Daily 90 tablet 4Active aMILoride (Midamor) 5 MG tablet Take 5 mg by mouth in the morning.6Active ondansetron ODT (Zofran-ODT) 4 MG disintegrating tablet Take 4 mg by mouth every 8 (eight) hours if bgvmdx775Active predniSONE (Deltasone) 10 MG tablet Take 10 mg by mouth Daily5Active sodium bicarbonate 650 MG tablet Take 650 mg by mouth in the morning and 650 mg in the evening and 650 mg before bedtime. Patient reported .5Active sulfamethoxazole-trimethoprim (Bactrim DS) 800-160 MG per tablet Take 1 tablet by mouth 3 (three) times a week05/09/2024tive tacrolimus ER (Envarsus XR) 0.75 MG tablet ER Take 1.5 mg by mouth in the morning.06/03/2024tive tacrolimus ER (Envarsus XR) 1 MG tablet ER Take 3 mg by mouth in the morning.06/03/2024tive valGANciclovir (Valcyte) 450 MG tablet Take 450 mg by mouth in the morning.05/09/2024tive mycophenolate (Myfortic) 180 MG EC tablet Take 360 mg by mouth in the morning and 360 mg in the evening.10/22/2024tive sertraline (Zoloft) 100 MG tablet Indications:Moderate episode of recurrent major depressive disorder (HCC)Take 1.5 tablets (150 mg) by mouth Daily 45 tablet tive atovaquone (Mepron) 750 MG/5ML suspension Take 1,500 mg by mouth in the morning.11/19/2024tive K Phos Finney-Sod Phos Di & Finney (David-Phos 250 Neutral) 155-852-130 MG tablet Take 1 tablet by mouth in the morning and 1 tablet before bedtime.Active Magnesium Bisglycinate (Mag Glycinate) 100 MG tablet Take 200 mg by mouth in the morning and 200 mg in the evening.11/19/2024tive metoprolol succinate XL (Toprol-XL) 50 MG 24 hr tablet Take 50 mg by mouth in the morning.01/06/2025Discontinued valsartan-hydroCHLOROthiazide (Diovan-HCT) 320-25 MG tablet Indications:Benign essential hypertensionTake 1 tablet by mouth in the morning. 90 tablet Discontinued cinacalcet (Sensipar) 30 MG tablet take 1 tablet by mouth 3 TIMES WEEKLY after DIALYSIS Sunday AND TEAMSZBB83/07/2025Discontinued allopurinol (Zyloprim) 100 MG tablet Take 100 mg by mouth 3 (three) times a weekDiscontinued sevelamer carbonate (Renvela) 800 MG tablet Take 800 mg by mouth in the morning and 800 mg at noon and 800 mg in the evening. Take with meals.Discontinued traZODone (Desyrel) 50 MG tablet Indications:Insomnia, unspecified typeTake 2 tablets (100 mg) by mouth at bedtime Take 1-2 tablets prn for insomnia. 60 tablet Discontinued azaTHIOprine (Imuran) 50 MG tablet Take 125 mg by mouth in the morning.Discontinued clotrimazole (Mycelex) 10 MG mery Take 10 mg by mouth in the morning and 10 mg at noon and 10 mg in the evening and 10 mg before bedtime.Discontinued hydrALAZINE (Apresoline) 50 MG tablet Take 50 mg by mouth DailyDiscontinued magnesium oxide (Mag-Ox) 400 MG tablet Take 400 mg by mouth in the morning and 400 mg at noon and 400 mg in the evening.Discontinued nystatin (Mycostatin) 888541 UNIT/ML suspension Take 500,000 Units by mouth in the morning and 500,000 Units at noon and 500,000 Units in the evening and 500,000 Units before bedtime. Discontinued oxyCODONE-acetaminophen (Percocet) 5-325 MG tablet Take 1 tablet by mouth every 6 (six) hours if wgpbil58 Discontinued magnesium, as gluconate, (Magonate) 500 (27 Mg) MG tablet Take 200 mg by mouth in the morning and 200 mg before bedtime.01/06/2025 Discontinued Active Problems ProblemNoted DateDiagnosed DateHistory of gout12/22/2024Renovascular /22/2025End-stage renal failure with renal sgdyggvung08/22/2025 Immunosuppressed kmvrfx9512/22/20241346Igxsitokguawfv49/27/2025Hypophosphatemia 05/21/2024Unilateral complete paralysis of vocal cord11/20/2023GAD (generalized anxiety disorder)10/16/2023GERD (gastroesophageal reflux disease)05/15/2023 Asymptomatic microscopic xkrmdxbky07/19/2023hews jdhnrlz9808/18/2022 Stjpgnullqmwqy55/24/5231Hrjgbebvlml99/27/2021Moderate major cmqhykjcqm53/29/2021 Rheumatoid factor vbkdxcif00/14/2021rimary osteoarthritis involving multiple blxmmu5404/18/2018Lumbar and sacral covurcpzaulvimcvl30/16/2018Vitamin D imvtsduaqk56/14/2018HSV-1 fwxzcpkuu67/06/2017Secondary hyperparathyroidism 03/07/2016Barretts qmwvyofni15/10/2016Pure hfocxcxmcccqwgbtvcbn97/10/2016ADPKD (autosomal dominant polycystic kidney disease)10/29/2014Obstructive sleep apnea 10/29/2014 Overview (08/31/2022): bipap has a cpap has a cpap Resolved Problems ProblemNoted DateDiagnosed DateResolved DateCytomegalovirus (CMV) viremia 509/5Colostomy in place/4Benign essential lxazmevsiqcc26/19/202308/4Blood in urine4Perforated diverticulum of large dmnqbteyt264Difficulty obaanlz0409/15/2018 4Right hip painseptic necrosis of bone05/31/2018 11/07/2023Stage 4 chronic kidney mgfnyfk20Tobacco dependence dywvpiza924Panic Encounters DateTypeDepartmentCare BdxaVevxemomctw06/07/2025 8:45 AM EDTOffice Visit [facility] [address] [place] [phone] Gregory Marin, DENTAL CERAMIST ASSISTANT Annual physical exam (Primary Dx); Pure hypercholesterolemia; Renovascular hypertension; Prediabetes; End-stage renal failure with renal transplant (HCC); ADPKD (autosomal dominant polycystic kidney disease); Secondary hyperparathyroidism (HCC); Moderate major depression (HCC); FILIPPO (generalized anxiety disorder); Immunosuppressed status (HCC); Vitamin D deficiency; History of gout; S/P kidney transplant (HCC); Elevated alkaline phosphatase level01/06/20255740Uypgzd18/19/2025bstract [facility] [address] [place] [address] Joe Harris DO 11/11/2024 4:30 PM EDTOffice Visit [facility] [address] [facility] [address] [place] [address] Bhavana Roland LICENSED OPTICIAN-SENIOR PAYROLL ADMINISTRATOR Moderate episode of recurrent major depressive disorder (HCC)11/11/2024amboo flowsheet [facility] [address] [facility] [address] [place] [address] Bhavana Roland LICENSED OPTICIAN-SENIOR PAYROLL ADMINISTRATOR 11/11/2024Travelfrom Last 3 Months Immunizations ImmunizationAdministration DatesNext DuePneumococcal Conjugate PCV Family History Medical HistoryRelationNameCommentsHeart diseaseFatherHypertensionFather Polycystic kidney diseaseFatherDiabetesMaternal GrandfatherDiabetesMaternal GrandmotherDiabetesPaternal GrandfatherDiabetesPaternal GrandmotherAnxiety disorderSisterPolycystic kidney diseaseSisterSuicidalityNeg HxRelationNameStatus CommentsFatherMaternal GrandfatherMaternal GrandmotherPaternal Grandfather Paternal GrandmotherSister Social History Tobacco UseTypesPacks/DayYears UsedDateSmoking Tobacco: NeverPassive Smoke Exposure: PastSmokeless Tobacco: FormerChew Tobacco Cessation:Counseling Given: Not Answered Alcohol UseStandard Drinks/WeekCommentsNot Currently0 (1 standard drink = 0.6 oz pure alcohol)no caffieneAUDIT-CAnswerDate RecordedQ1: How often do you have a drink containing alcohol?Never11/07/2023Q2: How many drinks containing alcohol do you have on a typical day when you are drinking?Patient does not drink 11/07/2023Q3: How often do you have six or more drinks on one occasion?Never 11/07/2023HQ-2AnswerDate RecordedPatient Health Questionnaire-2 Score0 06/24/2024EducationAnswerDate RecordedWhat is the highest level of school you have completed or the highest degree you have received?High school graduate 09/27/2022Sex and Gender InformationValueDate RecordedSex Assigned at BirthNot on fileLegal VdpRihu2006/14/2022 6:51 PM EDTGender IdentityNot on fileSexual OrientationNot on fileOccupationIndustryJob Start DateJob End 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[employer], 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.Not on fileNot on file Not on filePrevious job 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.Not on fileNot on fileNot on fileNot on fileNot on fileNot on fileNot on file Last Filed Vital Signs Vital SignReadingTime TakenCommentsBlood Cgqvyyaj022/8010 8:39 AM EDT Cmjam670401/06/2025 8:39 AM QMIVfrgxybbxdh94.4 ??C (97.5 ??F)11/15/2023 3:13 PM EDTRespiratory Rate--Oxygen Huhqaajoti87%01/06/2025 8:39 AM EDTInhaled Oxygen Concentration--Zrqdda87 kg (198 lb 6.4 oz)01/06/2025 8:39 AM TXJUpjzgv641.3 cm (5' 9 )01/06/2025 8:39 AM EDTBody Mass Index29.310 8:39 AM EDT Plan of Treatment DateTypeDepartmentCare Team (Latest Contact Info)Oaptccqijuw82/12/2025 4:30 PM ESTOffice Visit [facility] [address] [facility] [address] [place] [phone] Bhavana Roland APRN-SENIOR PAYROLL ADMINISTRATOR [address] [facility] [address] [place] [address] 07/14/2025 8:45 AM EDTOffice Visit [facility] [address] [place] [address] Health MaintenanceDue DateLast DoneCommentsCT Rjisrfggqofu28/23/1978FIT-DNA 1977FIT1977FOBT1977 7116Kxvbxqmghaxco73/23/1978COVID-19 Vaccine (#1)1982Influenza Vaccine (#1)4470Ppjdxreynpy13/18/941215, 01/17/2023, 3Colorectal Cancer Unxnkqqgk81/18/2033Pneumococcal Vaccine: Pediatrics (0 to 5 Years) and At-Risk Patients (6 to 64 Years)Completed 10/12/2022 Insurance Care Teams Team MemberRelationshipSpecialtyStart DateEnd Rayshawn Shabazz MD [address] [facility] [address] [place] [address] PCP - GeneralInternal Medicine12/22/24 Bhavana Roland APRN-SENIOR PAYROLL ADMINISTRATOR [address] [facility] [address] [place] [address] Nurse PractitionerBehavioral Health09/15/22
--- OUTSIDE RECORDS SUMMARY | 2025-02-04 18:07 | XMS_ITS | Encounter Summary ---
Author Organization [facility] Address [address] [place] [address] Care Team Providers Care Radio Electrician Name Role Phone Joe Harris DO Primary Care Provider [phone] Bhavana Roland AUTOMOBILE DESIGNER-PLYWOOD MATCHER Unavailable Bhavana Roland AUTOMOBILE DESIGNER-PLYWOOD MATCHER Unavailable Shreya Washington LPN Unavailable [phone] JaylynMarjorie lee RN Unavailable [phone] Rayshawn Shabazz MD Primary Care Provider [phone] Encounter Details DateTypeDepartmentCare Team (Latest Contact Info)Nkoiskhmnmj23/30/2024Clinisync Result Encounter [facility] External Department Unsolicited Provider, Generic External Data Social History Tobacco UseTypesPacks/DayYears UsedDateSmoking Tobacco: NeverPassive Smoke Exposure: PastSmokeless Tobacco: CurrentChewAlcohol UseStandard Drinks/Week CommentsNot Currently0 (1 standard drink = 0.6 oz pure alcohol)no caffiene AUDIT-CAnswerDate RecordedQ1: How often do you have a drink containing alcohol? Never11/07/2023Q2: How many drinks containing alcohol do you have on a typical day when you are drinking?Patient does not drink11/07/2023Q3: How often do you have six or more drinks on one occasion?Never11/07/2023HQ-2AnswerDate Recorded Patient Health Questionnaire-2 Trnwd950EducationAnswerDate RecordedWhat is the highest level of school you have completed or the highest degree you have received?High school aavrahje94/28/2023Sex and Gender InformationValueDate RecordedSex Assigned at BirthNot on fileLegal OohDing0506/14/2022 6:51 PM EDT Gender IdentityNot on fileSexual OrientationNot on fileOccupationIndustryJob Start DateJob End 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[employer], 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.Not on fileNot on fileNot on filePrevious job 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.Not on fileNot on fileNot on fileNot on fileNot on fileNot on fileNot on filedocumented as of this encounter Functional Status * Over the past 2 weeks, how often have you been bothered by any of the following problems?QuestionAnswerDate of AssessmentAuthorPatient Health Questionnaire-2 Mtqjz057 3:36 PM Judy Vilchis * How difficult have these problems made it for you to do your work, take care of things at home, or get along with other people?AnswerDate of Assessment AuthorSomewhat awilgspbr76/25/2025 3:36 PM Judy Vilchis * Over the last 2 weeks, how often have you been bothered by any of the following problems?QuestionAnswerDate of AssessmentAuthorFeeling nervous, anxious, or on bwhe709 3:35 PM Richard Vilchis being able to stop or control chiqepmg611/25/2025 3:35 PM Ana Vilchisorrying too much about different oekrwm634 3:35 PM Cooper Vilchisouble /25/2025 3:35 PM Darrick Vilchising so restless that it is hard to sit orgtg909 3:35 PM Darrick Vilchiscoming easily annoyed or timtavped635/25/2025 3:35 PM Ian Vilchiseling afraid as if something awful might iautsr731 3:35 PM Farheen Vilchis-7 Total Qajgk457 3:35 PM Judy Vilchis * Over the past 2 weeks, how often have you been bothered by any of the following problems?QuestionAnswerDate of AssessmentAuthorLittle interest or pleasure in doing thingsNot at all06/24/2024 3:36 PM EDTEardeet, AliviaFeeling down, depressed, or hopelessNot at all06/24/2024 3:36 PM EDTEardeet, Judy Trouble falling or staying asleep, or sleeping too muchSeveral days06/24/2024 3:36 PM EDTEarhart, AliviaFeeling tired or having little energyMore than half the days06/24/2024 3:36 PM EDTEarhart, AliviaPoor appetite or overeating Several days06/24/2024 3:36 PM EDTEardeet, AliviaFeeling bad about yourself - or that you are a failure or have let yourself or your family downNot at all 06/24/2024 3:36 PM EDTErayot, DaisyaTrouble concentrating on things, such as reading the newspaper or watching televisionNot at all06/24/2024 3:36 PM EDT Rabia, AlirustamaMoving or speaking so slowly that other people could have noticed? Or the opposite - being so fidgety or restless that you have been moving around a lot more than usual.Not at all06/24/2024 3:36 PM EDTEardeet, AliviaThoughts that you would be better off or hurting yourself in some wayNot at all06/24/2024 3:36 PM Daisy VilchisaPatient Health Questionnaire-9 Yvced531 3:36 PM Judy Vilchis documented as of this encounter Plan of Treatment DateTypeDepartmentCare Team (Latest Contact Info)Wbtgbeycikp37/12/2025 4:30 PM ESTOffice Visit [facility] [address] [facility] [address] [place] [address] Bhavana Roland, AUTOMOBILE DESIGNER-PLYWOOD MATCHER [address] [facility] [address] [place] [address] 07/14/2025 8:45 AM EDTOffice Visit [facility] [address] [place] [address] documented as of this encounter Procedures Procedure NamePriorityDate/TimeAssociated DiagnosisCommentsMR IAC W AND WO IV JALKSIHE66/30/2024 10:23 AM EST documented in this encounter Results * MR IAC W AND WO IV CONTRAST (03/31/2024 10:23 AM EST)Anatomical Region LateralityModalityOtherSpecimen (Source)Anatomical Location / Laterality Collection Method / VolumeCollection TimeReceived Time03/31/2024 10:23 AM EST Narrative 04/01/2024 1:24 PM EST Interpreted By: ??Rayshawn Jolley, STUDY: MR IAC W AND WO IV CONTRAST; ??03/31/2024 11:25 am ?? INDICATION: Signs/Symptoms:right vocal cord paralysis, assymmetry at skull base on ct. ?? ,J38.01 Paralysis of vocal cords and larynx, unilateral ?? COMPARISON: Outside hospital CT neck dated 11/27/2023. ?? ACCESSION NUMBER(S): [id number] ?? ORDERING CLINICIAN: LUCILLE MERLOS ?? TECHNIQUE: Standard multiplanar multisequence MR imaging was performed through the brain prior to and following administration of 19.5 ML Dotarem intravenous contrast. Additional dedicated pre and post-contrast MR imaging was performed through the internal auditory canals. ?? FINDINGS: Parenchyma: There is no diffusion restriction abnormality to suggest acute infarct. ??No evidence of recent hemorrhage. There is no mass effect or midline shift. No abnormal parenchymal enhancement. No significant focal parenchymal signal abnormality. ?? CSF Spaces: The ventricles, sulci and basal cisterns are within normal limits for age with minimal sulcal prominence. Basilar cisterns are patent. ?? Extra-axial spaces: No extra-axial fluid collection. ?? Intracranial Flow Voids: Patent appearing. There is asymmetry of the jugular bulbs appearing larger in caliber on the right with no additional abnormality evident. ?? Paranasal Sinuses: Mucosal thickening and small amount of secretions within the left frontoethmoidal region. Otherwise mild diffuse mucosal thickening of the bilateral ethmoid air cells. Polypoid mucosal thickening of the inferior right maxillary paranasal sinus and mild mucosal thickening of the inferior left maxillary paranasal sinus. ?? Mastoids: Trace fluid within the inferior mastoids bilaterally. Otherwise well aerated. ?? IAC region: There is no focus of abnormal enhancement or mass effect in bilateral cerebellopontine angle cisterns. There is no focus of abnormal enhancement within bilateral internal auditory canals. Bilateral inner ear structures demonstrate expected signal and postcontrast appearance. ?? Orbits: Normal. ?? Calvarium: No suspicious osseous marrow signal. ?? IMPRESSION: No acute infarct, recent hemorrhage, intracranial mass effect, or abnormal enhancement. Unremarkable MR appearance of the internal auditory canals and inner ear structures. ?? MACRO: None ?? Signed by: Rayshawn Jolley 04/01/2024 1:24 PM Dictation workstation: ?? [id number] Procedure Note Radiology, Radiologist, - 04/01/2024 Interpreted By: Rayshawn Jolley, STUDY: MR IAC W AND WO IV CONTRAST; 03/31/2024 11:25 am INDICATION: Signs/Symptoms:right vocal cord paralysis, assymmetry at skull base on ct. 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 ACCESSION NUMBER(S): [id number] ORDERING CLINICIAN: LUCILLE MERLOS TECHNIQUE: Standard multiplanar multisequence MR imaging was [...] Rayshawn Jolley 04/01/2024 1:24 PM Dictation workstation: [id number] Authorizing ProviderResult TypeResult StatusGeneric External Data Provider [facility]NC IMAGINGFinal Result documented in this encounter Visit Diagnoses Not on filedocumented in this encounter Care Teams Team MemberRelationshipSpecialtyStart DateEnd Date Joe Harris DO [address] [facility] [address] [place] [address] PCP - GeneralInternal [facility] Bhavana Roland APRN-PLYWOOD MATCHER [address] [address] PCP - [facility] Rayshawn Shabazz MD [address] [facility] [address] [place] [address] [facility] - [facility]12/22/24 Bhavana Roland APRN-PLYWOOD MATCHER [address] [address] Nurse PractitionerSelect [facility]ty [facility]09/15/22 Shreya Washington LPN [address] [facility] [address] [place] [address] Licensed Practical NurseFamily Medicine Marjorie De La O RN [address] [facility] [address] [place] [address] Registered NurseFamily Medicinedocumented as of this encounter
--- NOTE | 2025-02-04 18:21 | ED.ABDPAIN1 ---
HPI - Abdominal Pain General Chief Complaint: Abdominal Pain Stated Complaint: ABDOMINAL PAIN Time Seen by Provider: 02/04/25 18:15 Source: patient Mode of arrival: walk-in Limitations: no limitations History of Present Illness HPI narrative: The patient is a 49-year-old male with history of kidney transplant in May 2024 presented to the ER with a left upper abdominal pain although the patient is pointing to the left lower and mid abdomen, that started earlier this morning associated with nausea and vomiting and he had early he have constipated bowel movement The patient denies any fever or chills no cough no other concerns no history of any body ache That transplanted kidney is in the right lower abd Related Data Home Medications ?Medication ?Instructions ?Recorded ?Confirmed allopurinol 100 mg tablet 100 mg PO .3Times a week 10/24/23 10/24/23 fluticasone propionate 50 1 spray intranasal DAILY 10/24/23 10/24/23 mcg/actuation nasal spray,suspension sertraline 100 mg tablet 100 mg PO DAILY 10/24/23 10/24/23 Previous Rx's ?Medication ?Instructions ?Recorded oxycodone-acetaminophen 5 mg-325 1 tab PO Q8H PRN pain #9 tabs 05/12/23 mg tablet (Percocet) Allergies Allergy/AdvReac Type Severity Reaction Status Date / Time amoxicillin Allergy Mild Verified 05/12/23 13:25 Review of Systems ROS Status of ROS 10 or more systems reviewed and unremarkable except as noted in history and below PFSH PFSH Social History Little interest or pleasure in doing things: not at all Feeling down, depressed, or hopeless: not at all Exam Narrative Exam Narrative: Nurses notes and vital signs reviewed and patient is not hypoxic. General: Well-appearing and in no apparent distress. Skin: Warm, dry, no pallor noted. No rash. Head: Normocephalic, atraumatic. Neck: Supple, non-tender. Cardiovascular: Regular Rate and Rhythm without murmur, gallop or rub. Respiratory: No accessory muscle use or respiratory distress. Lungs are clear to auscultation, no wheezing, rales or rhonchi Musculoskeletal: normal ROM, no calf or popliteal tenderness, no lower extremity edema/swelling GI: Abdomen is soft, mildly distended with tenderness upon palpation of the left upper quadrant with some discomfort in the left lower and periumbilical area, there is no tenderness palpation of the right lower quadrant Constitutional Vital Signs, click to edit/add: Last Vital Signs Temp 98.1 F 02/04/25 18:04 Pulse 76 02/04/25 18:04 Resp 18 02/04/25 18:04 BP 151/82 H 02/04/25 18:04 Pulse Ox 99 02/04/25 18:04 O2 Del Method Room Air 02/04/25 18:04 Course Vital Signs Vital signs: Vital Signs Temperature 98.1 F 02/04/25 18:04 Pulse Rate 76 02/04/25 18:04 Respiratory Rate 18 02/04/25 18:04 Blood Pressure 151/82 H 02/04/25 18:04 Pulse Oximetry 99 02/04/25 18:04 Oxygen Delivery Method Room Air 02/04/25 18:04 Temperature 98.1 F 02/04/25 18:04 Pulse Rate 76 02/04/25 18:04 Respiratory Rate 18 02/04/25 18:04 Blood Pressure 151/82 H 02/04/25 18:04 Pulse Oximetry 99 02/04/25 18:04 Oxygen Delivery Method Room Air 02/04/25 18:04 MDM - Abdominal Pain MDM Narrative Medical decision making narrative: The patient blood workup including CBC chemistry as well as a CAT scan pending as well as urinalysis Patient have a history of previous surgery presenting with abdominal pain with nausea and vomiting and constipation although he did had some bowel movement this morning but still need to rule out diverticulitis or small bowel obstruction Discharge Plan Discharge Patient Disposition: Still a Patient
[2025-02-04] MEDS: MORPHINE SULFATE 2 MG/ML SYRINGE IV (18:28)
[2025-02-04] MEDS: 0.9 % SODIUM CHLORIDE 1,000 ML 1000 ML IV (18:28)
--- NOTE | 2025-02-04 18:38 | CT_ITS ---
The [address] [address] Patient Name: JIM PETERSON MRN: [id number] date: 1975 Sex: M Assigned Patient Location: ER Current Patient Location: ED.MAIN Accession/Order Number: [id number] Exam Date: 02/04/2025 19:38 Report Date: 02/04/2025 20:44 At the request of: JEFF MIDDLETON MD Procedure: CT abdomen pelvis wo con CT Abdomen and Pelvis withoutcontrast TECHNIQUE: Axial imaging with 2-D reconstruction. The CT exam was performed using one or more the following dose reduction techniques: Automated exposure control, adjustment of the MA and/or Kv according to patient size, or use of the iterative reconstruction technique. COMPARISON: 05/12/2023 History: Left lower quadrant pain history renal transplant LIMITATIONS: None LOWER THORAX Unremarkable LIVER: Similar multiple hepatic cysts. GALLBLADDER: No gallbladder abnormality identified. BILE DUCTS: No dilatation SPLEEN: Unremarkable PANCREAS: Unremarkable ADRENAL GLANDS: Unremarkable KIDNEYS:Polycystic kidney changes redemonstrated. Similar finding. Multiple hyperdense cyst redemonstrated. Transplant plain and right pelvic kidney unremarkable. No hydronephrosis. No obstructing stone. AORTA: No abdominal aortic aneurysm identified. RETROPERITONEUM: No significant retroperitoneal abnormalities identified. MESENTERY:Unremarkable STOMACH:Unremarkable SMALL BOWEL: Dilated fluid-filled small bowel loop. Measures up to 3.5 cm. A transition in the mid pelvis region. Seen with axial image 110. Multiple nondistended distal small bowel loop. APPENDIX: The appendix is not seen. No pericecal inflammatory changes identified. COLON: Nondistended. Contains stool throughout. URINARY BLADDER: Urinary bladder is unremarkable. REPRODUCTIVE SYSTEM: Reproductive structures are unremarkable. PNEUMOPERITONEUM: None PERITONEAL FLUID:None BONY STRUCTURES: Right hip arthroplasty ABDOMINAL WALL: Unremarkable CT/CT abdomen pelvis wo con IMPRESSION: Concern for small bowel obstruction with transition in the midportion of the pelvis. Similar findings of polycystic kidney disease. Similar hepatic cysts. Transplanted right pelvic kidney unremarkable. Impression dictated by: Joe Panda M.D. 02/04/2025 8:44 PM [facility]ictation [facility] Electronically authenticated by: [id number] Date: 02/04/2025 20:44
[2025-02-04 18:50] LABS: Alanine Aminotransferase 29 U/L (16-63); Albumin Globulin Ratio 1.4; Albumin Level 4.2 g/dL (3.4-5.0); Alkaline Phosphatase 168 U/L (46-116); Anion Gap 18.1; Aspartate Amino Transferase 22 U/L (15-37); Blood Urea Nitrogen 15.0 mg/dL (7.0-18.0); Calcium 10.6 mg/dL (8.5-10.1); Carbon Dioxide 20.8 mmol/L (21.0-32.0); Chloride 106 mmol/L (98-107); Estimated GFR (African America >60 (>=60 mL/min/1.73m^2); Estimated GFR (Non-African Ame 57 (>=60 mL/min/1.73m^2); Globulin 3.0 g/dL; Glucose 114 mg/dL (74-106); Potassium 3.9 mmol/L (3.5-5.1); Sodium 141 mmol/L (136-145); Total Protein 7.2 g/dL (6.4-8.2)
[2025-02-04 18:53] LABS: Lipase 22.0 U/L (16.0-77.0)
[2025-02-04 19:21] LABS: Hematocrit 48.9 % (42.0-54.0); Hemoglobin 14.9 g/dL (14.0-18.0); Mean Corpuscular HGB Conc 30.5 g/dL (29.9-35.2); Mean Corpuscular Hemoglobin 24.9 pg (25.9-34.0); Mean Corpuscular Volume 81.6 fL (80.0-94.0); Platelet Count 193 10^3/uL (150-450); Red Blood Count 5.99 10^6/uL (4.70-6.10); White Blood Count 5.5 10^3/uL (4.0-11.0)
[2025-02-04 19:30] LABS: Basophils Abs Manual 0.00 10^3/uL (0.00-0.10); Basophils Percent Manual 0.0 % (0.2-2.0); Eosinophils Absolute Manual 0.00 10^3/uL (0.00-0.70); Eosinophils Percent Manual 0.0 % (0.9-7.0); Lymphocytes Absolute Manual 0.33 10^3/uL (1.20-3.80); Lymphocytes Percent Manual 6.0 % (20.5-60.0); Monocytes Absolute Manual 0.44 10^3/uL (0.30-0.80); Monocytes Percent Manual 8.0 % (1.7-12.0); Segmented Neut Absolute Manual 4.73 10^3/uL (1.4-6.5); Segmented Neutrophils % Manual 86.0 (43.0-75.0)
[2025-02-04] MEDS: MORPHINE SULFATE 4 MG/ML VIAL IV (20:32)
[2025-02-04] MEDS: 0.9 % SODIUM CHLORIDE 1,000 ML 125 ML IV (22:19)
[2025-02-04] MEDS: HYDROMORPHONE HCL 1 MG/ML CARTRIDGE IV (22:39)
[2025-02-04 22:58] LABS: Glucose Urine UA NEGATIVE (NEGATIVE)
[2025-02-05] VITALS: BP 143/87; O2SAT 97
[2025-02-05 00:30] VITALS: BP 141/81; O2SAT 97
--- NOTE | 2025-02-05 00:48 | ED.ABDPAIN1 ---
HPI - Abdominal Pain General Chief Complaint: Abdominal Pain Stated Complaint: ABDOMINAL PAIN Time Seen by Provider: 02/04/25 18:15 Source: patient Mode of arrival: walk-in Limitations: no limitations History of Present Illness HPI narrative: This 49-year-old male with a history of polycystic kidney disease who is status post kidney transplant at [facility] in May of this year was signed out to me at shift change. He presents for evaluation of abdominal pain. Patient was seen and evaluated. He has a history of diverticulitis and had an ileostomy in the past. The ileostomy was reversed. He has not had any fever. He states that last week he had some tacos and had some abdominal pain at that time that resolved. Last night he had a bowl of chili from [employer] and when he woke up this morning he had abdominal pain with nausea and vomiting. He did have a bowel movement earlier today but has not passed any gas since that time. He has multiple healed incisions in the abdomen. His kidney transplant is in the right lower quadrant of his abdomen. He is not having any fever or chest pain. Labs are reviewed. He has a normal white count and stable hemoglobin. Electrolytes are normal with a GFR of 57. CT scan of the abdomen pelvis shows a small bowel obstruction with transition point in the mid pelvis. His urine is negative for infection. He was medicated with IV fluids, Zofran, morphine and 1 mg of IV Dilaudid. The case was discussed with the hospitalist at [facility] as well as the transplant physician at [facility]. He is accepted for admission to the stepdown unit at [facility]. An NG tube was not placed as the patient is not having any vomiting at this time. This was also discussed with the hospitalist. Related Data Home Medications ?Medication ?Instructions ?Recorded ?Confirmed allopurinol 100 mg tablet 100 mg PO .3Times a week 10/24/23 10/24/23 fluticasone propionate 50 1 spray intranasal DAILY 10/24/23 10/24/23 mcg/actuation nasal spray,suspension sertraline 100 mg tablet 100 mg PO DAILY 10/24/23 10/24/23 Previous Rx's ?Medication ?Instructions ?Recorded oxycodone-acetaminophen 5 mg-325 1 tab PO Q8H PRN pain #9 tabs 05/12/23 mg tablet (Percocet) Allergies Allergy/AdvReac Type Severity Reaction Status Date / Time amoxicillin Allergy Mild Verified 05/12/23 13:25 PFSH PFSH Social History Little interest or pleasure in doing things: not at all Feeling down, depressed, or hopeless: not at all Exam Constitutional Vital Signs, click to edit/add: Last Vital Signs Temp 98.1 F 02/04/25 18:04 Pulse 71 02/04/25 20:35 Resp 18 02/04/25 20:35 BP 148/83 H 02/04/25 23:00 Pulse Ox 99 02/04/25 23:20 O2 Del Method Room Air 02/04/25 18:04 Course Vital Signs Vital signs: Vital Signs Temperature 98.1 F 02/04/25 18:04 Pulse Rate 76 02/04/25 18:04 Respiratory Rate 18 02/04/25 18:04 Blood Pressure 151/82 H 02/04/25 18:04 Pulse Oximetry 99 02/04/25 18:04 Oxygen Delivery Method Room Air 02/04/25 18:04 Temperature 98.1 F 02/04/25 18:04 Pulse Rate 71 02/04/25 20:35 Respiratory Rate 18 02/04/25 20:35 Blood Pressure 148/83 H 02/04/25 23:00 Pulse Oximetry 99 02/04/25 23:20 Oxygen Delivery Method Room Air 02/04/25 18:04 MDM - Abdominal Pain Medical Records Attestation: I reviewed the patient's medical records. Lab Data Attestation: I reviewed the patient's lab results. Labs: Lab Results 02/04/25 02/04/25 02/04/25 Range/Units 18:25 19:07 22:50 WBC 5.5 (4.0-11.0) 10^3/uL RBC 5.99 (4.70-6.10) 10^6/uL Hgb 14.9 (14.0-18.0) g/dL Hct 48.9 (42.0-54.0) % MCV 81.6 (80.0-94.0) fL MCH 24.9 L (25.9-34.0) pg MCHC 30.5 (29.9-35.2) g/dL RDW 15.9 H (11.0-15.0) % Plt Count 193 (150-450) 10^3/uL MPV 9.2 L (9.5-13.5) fL Seg Neuts % (Manual) 86.0 H (43.0-75.0) Lymphocytes % (Manual) 6.0 L (20.5-60.0) % Monocytes % (Manual) 8.0 (1.7-12.0) % Eosinophils % (Manual) 0.0 L (0.9-7.0) % Basophils % (Manual) 0.0 L (0.2-2.0) % Neutrophils # (Manual) 4.73 (1.4-6.5) 10^3/uL Lymphocytes # (Manual) 0.33 L (1.20-3.80) 10^3/uL Monocytes # (Manual) 0.44 (0.30-0.80) 10^3/uL Eosinophils # (Manual) 0.00 (0.00-0.70) 10^3/uL Basophils # (Manual) 0.00 (0.00-0.10) 10^3/uL Sodium 141 (136-145) mmol/L Potassium 3.9 (3.5-5.1) mmol/L Chloride 106 (98-107) mmol/L Carbon Dioxide 20.8 L (21.0-32.0) mmol/L Anion Gap 18.1 BUN 15.0 (7.0-18.0) mg/dL Creatinine 1.34 H (0.70-1.30) mg/dL Est GFR ( Amer) >60 (>=60 mL/min/1.73m^2) Est GFR (Non-Af Amer) 57 L (>=60 mL/min/1.73m^2) BUN/Creatinine Ratio 11.2 Glucose 114 H (74-106) mg/dL Calcium 10.6 H (8.5-10.1) mg/dL Total Bilirubin 0.5 (0.2-1.0) mg/dL AST 22 (15-37) U/L ALT 29 (16-63) U/L Alkaline Phosphatase 168 H (46-116) U/L Total Protein 7.2 (6.4-8.2) g/dL Albumin 4.2 (3.4-5.0) g/dL Globulin 3.0 g/dL Albumin/Globulin Ratio 1.4 Lipase 22.0 (16.0-77.0) U/L Urine Color Lt. yellow (YELLOW) Urine Clarity Clear (CLEAR) Urine pH 6.5 (5.0-9.0) Ur Specific [place] 1.010 (1.005-1.025) Urine Protein Negative (NEG/TRACE) mg/dL Urine Glucose (UA) Negative (NEGATIVE) mg/dL Urine Ketones Trace A (NEGATIVE) mg/dL Urine Occult Blood Negative (NEGATIVE) Urine Nitrite Negative (NEGATIVE) Urine Bilirubin Negative (NEGATIVE) Urine Urobilinogen 0.2 (0.2-1.0) EU/dL Ur Leukocyte Esterase Negative (NEGATIVE) Imaging Data CT scan - abdomen: Radiologist's impression: ITS Impressions Abdomen/Pelvis CT 02/04/25 18:38 IMPRESSION: Concern for small bowel obstruction with transition in the midportion of the pelvis. Similar findings of polycystic kidney disease. Similar hepatic cysts. Transplanted right pelvic kidney unremarkable. Impression dictated by: Joe Panda M.D. 02/04/2025 8:44 PM Dictation Location: [place] [address] Electronically authenticated by: [id number] Date: 02/04/2025 20:44 Discharge Plan Discharge Patient Disposition: Still a Patient
[2025-02-05 01:00] VITALS: BP 126/81; O2SAT 98
[2025-02-05] MEDS: HYDROMORPHONE HCL 1 MG/ML CARTRIDGE IV (02:10)
--- NOTE | 2025-02-05 02:42 | PC.NURSE ---
[facility] arrives at this time for transport.
== END 2025-02-05 02:46 | disposition short-term general hospital (02) ==
PROVIDERS: Emergency Medicine; Emergency Provider Emergency Medicine; PCP Internal Medicine
DX: K56.609 Unspecified intestinal obstruction, unspecified as to partial versus complete obstruction (principal); Z94.0 Kidney transplant status; Q61.3 Polycystic kidney, unspecified
CPT/HCPCS: 36415; 74176; 80053; 81003; 83690; 85007; 85027; 96361; 96374; 96375; 96376; 99285; J1171; J2270; J2405